=== PATIENT | female | born 1940 | race Caucasian/White ===

== ENCOUNTER → 2018-03-02 07:15 | Outpatient (CLI) | payer MEDICARE, BC, SELFPAY ==
[2018-03-02 10:31] LABS: Absolute Lymphocyte Count 1.18 X10^3/ul (0.83-4.51); Absolute Neutrophil Count 1.7 X10^3/uL (2.0-7.7); Basophil# 0.04 X10^3/uL; Basophil% 1.1 % (0-1); Eosinophil# 0.12 X10^3/uL; Eosinophils% 3.4 % (0-5); Hematocrit 39.3 % (37-47); Hemoglobin 13.6 g/dl (12.0-15.0); Lymphocyte # 1.18 X10^3/ul (4.0); Lymphocyte % 33.3 % (19-41); Mean Corp Hgb Conc 34.6 g/gl (32-36); Mean Corpuscular Hgb 31.6 pg (27.0-32.0); Mean Corpuscular Volume 91.2 fL (81-99); Mean Platelet Vol. 10.1 fl (6.2-12.0); Monocyte# 0.46 X10^3/uL; Neutrophil # 1.73 X10^3/uL (2.7-7.7); Neutrophil % 48.9 % (47-70); Platelet Count 247 K/mm3 (150-450); RBC Distribution Width CV 12.4 % (11.6-14.6); RBC Distribution Width SD 41.3 fl (35.1-43.9); Red Blood Count 4.31 M/mm3 (4.2-5.4); White Blood Count 3.5 K/mm3 (4.4-11.0)
[2018-03-02 10:54] LABS: POSITIVE COUNT NO; POSITIVE DIFFERENTIAL NO; POSITIVE MORPHOLOGY NO
[2018-03-02 11:00] LABS: Vitamin B12 1417 pg/mL (211-911)
[2018-03-02 11:44] LABS: ALB/GLOB Ratio 1.2 RATIO (0.9-2.4); AST(SGOT) 26 U/L (15-37); Alanine Aminotransfer ALT/SGPT 26 U/L (13-56); Albumin, Serum 3.8 g/dL (3.2-5.0); Alkaline Phosphatase 85 U/L (45-117); Anion Gap 6 (5-15); BUN 13 mg/dL (7-18); BUN/Creat Ratio 17.7 RATIO (10-20); Calcium,Total 8.6 mg/dL (8.5-10.1); Chloride 101 mmol/L (98-107); Creatinine, Serum 0.73 mg/dL (0.55-1.02); EST Glomerular Filtration Rate 81 mL/min (>60); Est Glom Filt Rate - Afr Amer 98 mL/min (>60); Globulin 3.2 g/dL (2.2-4.2); Glucose 75 mg/dL (74-106); Potassium 4.1 mmol/L (3.5-5.1); Sodium Level 136 mmol/L (136-145); Thyroid Stim Hormone (TSH) 2.14 uIU/mL (0.358-3.74)
[2018-03-06 12:53] LABS: ANTINUCLEAR ANTIBODIES DIRECT Negative (Negative)
== END ==
PROVIDERS: Family Provider Nurse Practitioner; PCP Nurse Practitioner; Visit Provider Nurse Practitioner
DX: E03.9 Hypothyroidism, unspecified (principal); D72.819 Decreased white blood cell count, unspecified
CPT/HCPCS: 36415; 80053; 82607; 82746; 84443; 85025; 86038

== ENCOUNTER → 2018-03-19 10:20 | Outpatient (CLI) | payer MEDICARE, BC, SELFPAY ==
--- NOTE | 2018-03-19 10:20 | DT_ITS ---
This patient was seen during an EMR downtime March 19, 2018 - March 26, 2018. This patient may have a combination of paper and electronic documentation or all paper documentation. All documentation is viewable within the e-chart portion of [facility] for each patient visit.
--- NOTE | 2018-03-19 10:25 | BI_ITS ---
MAMMOGRAPHY - BILATERAL SCREENING REASON FOR EXAM: Female, 77 years old. Routine annual screening examination. PERTINENT HISTORY: Non-contributory. TECHNIQUE: Digital bilateral breast som (3D mammographic acquisition) in the CC and MLO projections. 2-D mediolateral oblique (MLO) and craniocaudad (CC) views of both breasts were obtained. CAD: Full Field Digital Mammography with Computer Added Detection was performed. COMPARISON: 03/15/2017 and 02/01/2012 FINDINGS: Breast Composition: The breasts are heterogeneously dense, which may obscure small masses. There are no dominant masses or suspicious calcifications. No other significant abnormalities are identified. BI/SCREENING MAMM (CAD), BILAT IMPRESSION: Stable bilateral screening mammogram. Yearly follow-up mammogram recommended. (A) ASSESSMENT CATEGORY: BIRADS Category 2: Benign. A letter regarding these results will be sent to the patient by the facility within 30 days. Approximately 10% of breast cancers are not detected by mammography. A normal mammogram should not delay biopsy of a clinically suspicious abnormality. [id number] Electronically Signed: Aixa Weeks MD at 13:15 EDT Tel , Service support ,
== END ==
PROVIDERS: Family Provider Nurse Practitioner; PCP Nurse Practitioner; Visit Provider Nurse Practitioner
DX: Z12.31 Encounter for screening mammogram for malignant neoplasm of breast (principal)
CPT/HCPCS: 77063; 77067

== ENCOUNTER → 2018-07-17 07:17 | Outpatient (CLI) | payer MEDICARE, BC, SELFPAY ==
[2018-07-17 10:12] LABS: Absolute Lymphocyte Count 1.11 X10^3/ul (0.83-4.51); Absolute Neutrophil Count 1.3 X10^3/uL (2.0-7.7); Basophil# 0.05 X10^3/uL; Basophil% 1.5 % (0-1); Eosinophils% 6.2 % (0-5); Hematocrit 36.6 % (37-47); Hemoglobin 12.8 g/dl (12.0-15.0); Lymphocyte # 1.11 X10^3/ul (4.0); Lymphocyte % 34.3 % (19-41); Mean Corpuscular Hgb 32.2 pg (27.0-32.0); Monocyte# 0.55 X10^3/uL; Neutrophil # 1.32 X10^3/uL (2.7-7.7); Neutrophil % 40.7 % (47-70); Platelet Count 237 K/mm3 (150-450); RBC Distribution Width CV 12.3 % (11.6-14.6); RBC Distribution Width SD 40.5 fl (35.1-43.9); Red Blood Count 3.98 M/mm3 (4.2-5.4); White Blood Count 3.2 K/mm3 (4.4-11.0)
[2018-07-17 10:17] LABS: POSITIVE COUNT NO; POSITIVE DIFFERENTIAL NO; POSITIVE MORPHOLOGY NO
[2018-07-17 10:39] LABS: Microalbumin,Random Urine 12.4 mg/L (NO RANGE EST.); Microalbumin:Creatinine Ratio 26.2 mg/g CRE (<30 mg/g CRE)
== END ==
PROVIDERS: Family Provider Nurse Practitioner; PCP Nurse Practitioner; Referring Provider Nurse Practitioner; Visit Provider Nurse Practitioner
DX: E03.9 Hypothyroidism, unspecified (principal); I10 Essential (primary) hypertension; D72.819 Decreased white blood cell count, unspecified
CPT/HCPCS: 36415; 82043; 82570; 84443; 85025

== ENCOUNTER → 2018-07-24 10:20 | Outpatient (CLI) | payer MEDICARE, BC, SELFPAY ==
[2018-07-24 12:03] LABS: Hematocrit 34.9 % (37-47); Hemoglobin 12.3 g/dl (12.0-15.0); Mean Corp Hgb Conc 35.2 g/gl (32-36); Mean Corpuscular Hgb 32.7 pg (27.0-32.0); Mean Corpuscular Volume 92.8 fL (81-99); Mean Platelet Vol. 10.4 fl (6.2-12.0); Platelet Count 259 K/mm3 (150-450); RBC Distribution Width CV 12.3 % (11.6-14.6); RBC Distribution Width SD 40.8 fl (35.1-43.9); Red Blood Count 3.76 M/mm3 (4.2-5.4); White Blood Count 3.5 K/mm3 (4.4-11.0)
[2018-07-24 12:04] LABS: Scan Indicated on CBC? Y/N NO
[2018-07-24 12:21] LABS: AST(SGOT) 27 U/L (15-37); Alanine Aminotransfer ALT/SGPT 29 U/L (13-56); Albumin, Serum 3.5 g/dL (3.2-5.0); Alkaline Phosphatase 78 U/L (45-117); Bilirubin, Direct 0.23 mg/dL (0.00-0.30); Globulin 3.2 g/dL (2.2-4.2); Protein, Total 6.7 g/dL (6.4-8.2); Thyroid Stim Hormone (TSH) 2.22 uIU/mL (0.358-3.74)
== END ==
PROVIDERS: Family Provider Nurse Practitioner; PCP Nurse Practitioner; Referring Provider Nurse Practitioner; Visit Provider Nurse Practitioner
DX: E03.9 Hypothyroidism, unspecified (principal); D70.9 Neutropenia, unspecified; R35.1 Nocturia
CPT/HCPCS: 36415; 80076; 84443; 85027; 87086; 87088

== ENCOUNTER → 2018-09-27 07:09 | Outpatient (CLI) | payer MEDICARE, BC, SELFPAY ==
[2018-09-27 10:43] LABS: Absolute Lymphocyte Count 1.09 X10^3/ul (0.83-4.51); Absolute Neutrophil Count 1.5 X10^3/uL (2.0-7.7); Basophil# 0.07 X10^3/uL; Basophil% 2.1 % (0-1); Eosinophil# 0.25 X10^3/uL; Eosinophils% 7.5 % (0-5); Hemoglobin 13.5 g/dl (12.0-15.0); Lymphocyte # 1.09 X10^3/ul (4.0); Lymphocyte % 32.5 % (19-41); Mean Corp Hgb Conc 34.6 g/gl (32-36); Mean Corpuscular Hgb 32.2 pg (27.0-32.0); Mean Corpuscular Volume 93.1 fL (81-99); Mean Platelet Vol. 9.9 fl (6.2-12.0); Monocyte# 0.47 X10^3/uL; Neutrophil # 1.47 X10^3/uL (2.7-7.7); Neutrophil % 43.9 % (47-70); Platelet Count 254 K/mm3 (150-450); RBC Distribution Width CV 12.2 % (11.6-14.6); RBC Distribution Width SD 41.5 fl (35.1-43.9); Red Blood Count 4.19 M/mm3 (4.2-5.4); White Blood Count 3.4 K/mm3 (4.4-11.0)
[2018-09-27 10:49] LABS: ALB/GLOB Ratio 1.2 RATIO (0.9-2.4); AST(SGOT) 25 U/L (15-37); Alanine Aminotransfer ALT/SGPT 27 U/L (13-56); Albumin, Serum 3.8 g/dL (3.2-5.0); Alkaline Phosphatase 83 U/L (45-117); Anion Gap 6 (5-15); BUN 12 mg/dL (7-18); Chloride 103 mmol/L (98-107); Creatinine, Serum 0.67 mg/dL (0.55-1.02); EST Glomerular Filtration Rate 91 mL/min (>60); Est Glom Filt Rate - Afr Amer 110 mL/min (>60); Globulin 3.2 g/dL (2.2-4.2); Glucose 78 mg/dL (74-106); Sodium Level 138 mmol/L (136-145)
[2018-09-27 10:50] LABS: POSITIVE COUNT NO; POSITIVE DIFFERENTIAL NO; POSITIVE MORPHOLOGY NO
--- OUTSIDE RECORDS SUMMARY | 2018-11-13 00:34 | XMS RPT_ITS | Continuity of Care Document ---
:1940 Author Organization [facility] Address [facility] [address] [place] [address] Phone Care Team Providers Name Role Phone Fuadjae JEANNETTEKristie E Unavailable Dr. 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 Deliveries (Parity) Comments: 4 Status: Active Elevated blood pressure reading (R03.0, 796.2) Status: Active Encounter for screening mammogram for malignant neoplasm of breast (Z12.31, V76.12) Status: Active Fracture Of Ankle Status: Active Hyperlipidemia (E78.5, 272.4) Status: Active Hypertension (I10, 401.9) Comments: stage I, reviewed home BP charts, BP range 119/79 to 133/85 Status: Active Hypothyroidism (E03.9, 244.9) Comments: stay on current synthroid, was 67 now normal, repeat in February 2018 within range continue med and repeat again Jul 2018Not on synthroid for 5 years, result in February 2017 67! 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 David 2010 with neuts at 38.9 now 40.7 but now elevated eosinophils will repeat peripheral blood smear check b12, folic acid, normal Status: Active Nocturia (R35.1, 788.43) Status: Active Nonsmoker (Z78.9, V49.89) Status: Active Osteoporosis (M81.0, 733.00) Comments: BD 3- 6 % improvement continue same Status: Active Other lichen, not elsewhere classified (697.8) Comments: lichen sclerosisno change no new signs and symptoms Status: Active Pregnancies () Comments: 4 Status: Active Screening for malignant neoplasm of cervix (Z12.4, V76.2) Comments: refuse colonscopy told about colosure. new guidleines can stop pap now Status: Active Vitamin D insufficiency (E55.9, 268.9) Comments: continue 2000 daily Status: Active Medications Name Dates Details CALCIUM-CARB 600 + D, [id number] (Oral Tablet) 1 qd for 0 days Refills: 0 Ordered:24-Jul-2018 Cayetano, TaylorActive CENTRUM SILVER (Oral Tablet) 1 qd for 0 days Refills: 0 Ordered:29-Apr-2009 Analisa Bruner Desoximetasone 0.25 % External Cream 1 (one) Cream as needed for 0 days Quantity: 60 {Gram} Refills: 3 Ordered:24-Jul-2018 Kristie Meadows CNP, CNP, Kristie Tsang Start : 24-Jul-2018 Active Comments:Medication taken as needed. Excedrin as needed Active Comments:Medication taken as needed. Extra strengtj FISH OIL CONCENTRATE, 1000MG (Oral Capsule) 1 qd for 0 days Refills: 0 Ordered:29-Apr-2009 STEVEN BrunerActive Fosamax 70 MG Oral Tablet 1 (one) Tablet weekly for 90 days Quantity: 12 {Tablet} Refills: 3 Ordered:24-Jul-2018 Dori MACHADO, Kristie French CNP, Kristie Tsang Start : 24-Jul-2018 Active Fosamax 70 MG Oral Tablet 1 (one) Tablet q weekly for 0 days Quantity: 12 {Tablet} Refills: 3 Ordered:24-Jul-2018 Dori MACHADO, Kristie French CNP, Kristie Tsang Start : 24-Jul-2018 Active Iron 325 (65 Fe) MG Oral Tablet Tuantonio, Teresa, Sat (325 (65 Fe) MG) Active Lutein 10 MG Oral Tablet daily (10 MG) Active Norvasc 5 MG Oral Tablet 1 (one) Tablet daily for 0 days Quantity: 90 {Tablet} Refills: 3 Ordered:24-Jul-2018 Dori MACHADO, Kristie French CNP, Kristie Tsang Start : 24-Jul-2018 Active Super B complex daily Active Synthroid 75 MCG Oral Tablet 1 Tablet qd for 0 days Quantity: 90 {Tablet} Refills: 3 Ordered:24-Jul-2018 Dori MACHADO, Kristie French CNP, Kristie Tsang Start : 24-Jul-2018 Active Systane and or Alaway eye drops d daily Active Vitamin D3 2000 UNIT Oral Tablet 1 (one) Tablet Tablet daily for 0 days Quantity: 30 {Tablet} Refills: 0 Ordered:27-Mar-2017 Sandy Hopkins Start : 24-Feb-2017 Active Vitamin E 100 UNIT Oral Capsule daily (100 UNIT) Active ARMOUR THYROID, 60MG (Oral Tablet) uad Tablet 1 alternating with 2 qod for 0 days Quantity: 135 {Tablet} Refills: 3 Ordered:21-Oct-2009 STEVEN Bruner Start : 04-Mar-2009 Inactive CYTOMEL, 5MCG (Oral Tablet) 1 (one) Tablet qd for 0 days Quantity: 30 {Tablet} Refills: 2 Ordered:03-Feb-2011 STEVEN Bruner Start : 08-Dec-2009 End : 03-Feb-2011 Inactive DEBROX, 6.5% (Otic Solution) 1 for 0 days Refills: 0 Ordered:04-Mar-2009 STEVEN Bruner Start : 04-Mar-2009 End : 12-Mar-2009 Inactive EVISTA, 60MG (Oral Tablet) 1 (one) Tablet qod for 0 days Quantity: 45 {Tablet} Refills: 3 Ordered:03-Feb-2011 STEVEN Bruner Start : 30-Mar-2010 End : 03-Feb-2011 Inactive KEFLEX, 250MG (Oral Capsule) 1 (one) Capsule qid for 7 days Quantity: 28 {Capsule} Refills: 0 Ordered:17-Mar-2009 Dori JEANNETTE, Kristie French BARN AND PROPERTY MANAGER, Kristie Tsang Start : 17-Mar-2009 End : 30-Mar-2009 Inactive FISH OIL (Oil) End : 24-Mar-2008 Discontinued MULTIVITAMIN (Oral Liquid) Liquid for 0 days Refills: 0 Ordered:24-Mar-2008 STEVEN Bruner Start : 24-Mar-2008 End : 24-Mar-2008 Discontinued Prolia 60 MG/ML Subcutaneous Solution 1 (one) Solution q6mos for 0 days Quantity: 1 {Each} Refills: 1 Ordered:30-Aug-2017 Terrie Corbett Start : 27-Mar-2017 End : 30-Aug-2017 Discontinued Comments:forms sent to [facility] THYROID, 120MG (Oral Tablet) Not sure QD (120 MG) End : 24-Mar-2008 Discontinued Topicort 0.25 % External Ointment uad Ointment bid/prn to affected area(s) for 0 days Quantity: 1 {Ointment} Refills: 3 Ordered:24-Feb-2017 Salma Russell LPN Start : 26-Dec-2011 End : 24-Feb-2017 Discontinued Comments:dispense 60 grams Vitamin B Complex Oral Tablet 1 qd for 0 days Refills: 0 Ordered:24-Feb-2017 Salma Russell LPN End : 24-Feb-2017 Discontinued Vitamin B-12 1000 MCG Oral Tablet 1 3 x weekly for 0 days Refills: 0 Ordered:24-Feb-2017 Salma Russell LPN End : 24-Feb-2017 Discontinued Allergies and Adverse Reactions Name Dates Details Sulfa Drugs (Allergy) Status: Active Past Medical History Name Dates Details Actinic keratosis (L57.0, 702.0) Status: Inactive as of 06-Dec-2012 BMI between 19-24,adult (V85.1) Status: Inactive as of 30-Aug-2017 Cellulitis and abscess of other specified site (L03.818, 682.8) Status: Inactive as of 15-Apr-2009 Cerumen impaction (H61.20, 380.4) Comments: rt Status: Inactive as of 06-Dec-2012 Immunization Hx: h1n1 10-26-09 (Renamed from h1n1 10-26-09) Status: Inactive Immunization Hx: pneunmonia 08-08-08 (Renamed from pneunmonia 08-08-08) Status: Inactive Immunization Hx: seasonal flu 07-16-09 (Renamed from seasonal flu 07-16-09) Status: Inactive Osteopenia (M85.80, 733.90) Status: Resolved as of 29-Apr-2009 Rash (R21, 782.1) Comments: etiology?left elbow and rt knee Status: Inactive as of 15-Apr-2009 Procedures Date Value Details 05-Apr-2018 Downtime Report Result: Comments: See Note; NOTES: [facility] Medical Records Department [address] [place] [address] Downtime Report MR#: [id number] Acct: [id number] Name: CHINMAY COTA Rep #: [id number] : 1940 77 From: Jim Her PCP: Kristie Meadows NP Status: REG CLI This patient was seen during an EMR downtime March 19, 2018 - March 26, 2018. This patient may have a combination of jory r and electronic documentation or all paper documentation. All documentation is viewable within the e-chart portion of [facility] for each patient visit. 23-Mar-2018 SCREENING MAMM (CAD), BILAT Result: Comments: See Note; NOTES: [facility] Imaging Services [address] [place] [address] SCREENING MAMM (CAD), BILAT MR#: [id number] Acct: [id number] Name: CHINMAY COTA Jae Rep #: [id number] : 1940 F 77 From: Aixa Weeks MD PCP: Kristie Meadows NP Status: REG CLI Study: SCREENING MAMM (CAD), BILAT Date of Exam: 03/19/18 Exam# [id number] Ordering Dr: Kristie Meadows MAMMOGRAPHY - BILATERAL SCREENING REASON FOR EXAM: Female, 77 years old. Routine annual screening examination. PERTINENT HISTORY: Non-contributory. TECHNIQUE: Digital bilateral breast som (3D mammographic acqui sition) in the CC and MLO projections. 2-D mediolateral oblique (MLO) and craniocaudad (CC) views of both breasts were obtained. CAD: Full Field Digital Mammography with Computer Added Detection was per formed. COMPARISON: 03/15/2017 and 02/01/2012 FINDINGS: Breast Composition: The breasts are heterogeneously dense, which may obscure small masses. There are no domin ant masses or suspicious calcifications. No other significant abnormalities are identified. BI/SCREENING MAMM (CAD), BILAT IMPRESSION: Stable bi lateral screening mammogram. Yearly follow-up mammogram recommended. (A) ASSESSMENT CATEGORY: BIRADS Category 2: Benign. A letter regarding these results will be se nt to the patient by the facility within 30 days. Approximately 10% of breast cancers are not detected by mammography. A normal mammogram should not delay biopsy of a clinically suspicious abnormality. [id number] Electronically Signed: Aixa Weeks MD at 13:15 EDT Tel , Service support , CC: Kristie Meadows NP Spring Coverer: Signed 15-Mar-2017 Dexa Bone Density Study (HP) Result: Comments: See Note; NOTES: [facility] Imaging Services [address] [place] [id number] [address] 4[address] Dexa Bone Density Study (HP) MR#: [id number] Acct: [id number] Name: CHINMAY COTA Rep #: [id number] : 1940 F 76 From: Per Frye MD PCP: Kritsie Meadows Status: REG CLI Study: Dexa Bone Density Study (HP) Date of Exam: 03/15/17 Exam# [id number] Ordering Dr: Kristie Meadows STUDY: DUAL ENERGY X-RAY ABSORPTIOMETRY / DXA REASON FOR EXAM: Female, 76 years old. The patient is postmenopausal. Loss of height. TECHNIQUE: Bone Mineral Density (BMD) measurements of lumbar spin e and bilateral hips were obtained. COMPARISON: Comparison is made with prior study dated January 13, 2011. FINDINGS: Lumbar Spine (L1-L4): g/cm2 (0.753) / T-score ( -3.4) / Z-score (-1.6) Findings are suggestive of osteoporosis with a high fracture risk. Left Femur Total: g/cm2 (0.583) / T-score (-3.4) / Z-score (-1.4) Left Femoral Neck: g/cm2 (0.634) / T-score (- 2.9) / Z-score (-0.8) Right Femur Total: g/cm2 (0.557) / T-score (-3.6) / Z-score (-1.6) Right Femoral Neck: g/cm2 (0.578) / T-score (-3.3) / Z-score (-1.2) The T-Scores on the most recent prior examin ation were: Lumbar Spine (L1-L4): There has been worsening of bone density since the previous examination. Left Femur Total: which represents a worsening of 16.1%. Right Femur Total: which represents a worsening of 15.5%. HPBD/Dexa Bone Density Study (HP) IMPRESSION: The patient is considered osteoporotic as outlined below according to World H eath Organization (WHO) criteria with a high fracture risk. There has been worsening of bone density since the previous examination. Reference Information: The T-sc ore is the number of standard deviations above or below the standard which is normal for young adults at their peak bone mineral density. The World Health Organization (WHO) interprets the T-scores as f ollows: Above -1 Normal bone density Between -1 and -2.5 Osteopenia Equal to / or below -2.5 Osteoporosis As a practical clinical guideline, osteopenia may be graded as follows: Mild -1 through -1.5 M oderate -1.6 through -2.0 Severe -2.1 through -2.4 The Z-score is the number of standard deviations above or below age-matched controls. A Z-score of less than -1.5 would be considered abnormal. Refer ences: 1. NIH Osteoporosis and Related Bone Diseases http://www.osteo.org 2. International Society for Clinical Densitometry http://www.iscd.org 3. National Osteoporosis Foundation http://www.nof.org E lectronically Signed: Per Frye MD at 11:21 EDT Tel [phone], Service support , CC: Kristie Meadows Spring Coverer: Signed 15-Mar-2017 SCREENING MAMM (CAD), BILAT Result: Comments: See Note; NOTES: [facility] Imaging Services [address] [place] [address] [address] SCREENING MAMM (CAD), BILAT MR#: [id number] Acct: [id number] Name: CHINMAY COTA Rep #: [id number] : 1940 F 76 From: Per Frye MD PCP: Kristie Meadows Status: REG CLI Study: SCREENING MAMM (CAD), BILAT Date of Exam: 03/15/17 Exam# [id number] Ordering Dr: Kristie Meadows MAMMOGRAPHY - BILATERAL SCREENING REASON FOR EXAM: Female, 76 years old. Routine annual screening examination. PERTINENT HISTORY: Non-contributory. TECHNIQUE: Digital bilateral breast som (3D mammo graphic acquisition) in the CC and MLO projections. 2-D mediolateral oblique (MLO) and craniocaudad (CC) views of both breasts were obtained. CAD: Full Field Digital Mammography with Computer Added Dete ction was performed. COMPARISON: Comparison is made with prior study dated February 01, 2012. FINDINGS: Breast Composition: The breasts are heterogeneously dense, whic h may obscure small masses. There are no dominant masses or suspicious calcifications. Stable bilateral secretory calcifications. No other significant abnormalities are identified. There has been no s ignificant change since the prior study. HPBI/SCREENING MAMM (CAD), BILAT IMPRESSION: Stable bilateral screening mammogram. Yearly follow-up mamm ogram recommended. (A) ASSESSMENT CATEGORY: BIRADS Category 2: Benign. A letter regarding these results will be sent to the patient by the facility within 30 days. Approximately 10% of breast cancers are not detected by mammography. A normal mammogram should not delay biopsy of a clinically suspicious abnormality. 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 Comments: 02/03/12 Status: Active Smoking Status Name Dates Details Never smoker Vital Signs Date Test Result Details 24-Jul-20188:57 Temperature 98 f Comments: Method: Temporal Pulse 105 /min Comments: Pattern: Regular Respiration Rate 17 /min Comments: Pattern: Unlabored O2 SAT 95 % Comments: Room air BP Systolic 132 mm[Hg] Comments: Patient Position: Sitting; Cuff Location: Left Arm; Cuff Size: Standard BP Diastolic 80 mm[Hg] Comments: Patient Position: Sitting; Cuff Location: Left Arm; Cuff Size: Standard Weight 118.5 lb Height 64.25 in Body Mass Index Calculated 20.18 kg/m2 Body Surface Area Calculated 1.57 m2 :25 Temperature 97.3 f Comments: Method: Tympanic Pulse 103 /min Comments: Pattern: Regular Respiration Rate 17 /min Comments: Pattern: Unlabored O2 SAT 99 % Comments: Room air BP Systolic 162 mm[Hg] Comments: Patient Position: Sitting; Cuff Location: Left Arm; Cuff Size: Standard BP Diastolic 86 mm[Hg] Comments: Patient Position: Sitting; Cuff Location: Left Arm; Cuff Size: Standard Weight 120.05 lb Height 64.25 in Body Mass Index Calculated 20.45 kg/m2 Body Surface Area Calculated 1.58 m2 :27 Temperature 97.2 f Pulse 52 /min Comments: Pattern: Regular Respiration Rate 16 /min Comments: Pattern: Unlabored O2 SAT 96 % Comments: Room air BP Systolic 180 mm[Hg] Comments: Patient Position: Sitting; Cuff Location: Left Arm; Cuff Size: Standard BP Diastolic 92 mm[Hg] Comments: Patient Position: Sitting; Cuff Location: Left Arm; Cuff Size: Standard Weight 122.25 lb Height 64.25 in Body Mass Index Calculated 20.82 kg/m2 Body Surface Area Calculated 1.59 m2 :33 Temperature 98.1 f Pulse 105 /min Comments: Pattern: Regular Respiration Rate 18 /min Comments: Pattern: Unlabored O2 SAT 97 % Comments: Room air BP Systolic 162 mm[Hg] Comments: Patient Position: Sitting; Cuff Location: Left Arm; Cuff Size: Standard BP Diastolic 80 mm[Hg] Comments: Patient Position: Sitting; Cuff Location: Left Arm; Cuff Size: Standard Weight 122.25 lb Height 64.25 in Body Mass Index Calculated 20.82 kg/m2 Body Surface Area Calculated 1.59 m2 :14 Weight 122.25 lb Height 64.25 in Body Mass Index Calculated 20.82 kg/m2 Body Surface Area Calculated 1.59 m2 :04 Pulse 111 /min Comments: Pattern: Regular Respiration Rate 16 /min Comments: Pattern: Unlabored O2 SAT 98 % Comments: Room air BP Systolic 150 mm[Hg] Comments: Patient Position: Sitting; Cuff Location: Left Arm; Cuff Size: Standard BP Diastolic 70 mm[Hg] Comments: Patient Position: Sitting; Cuff Location: Left Arm; Cuff Size: Standard Weight 122.25 lb Height 64.25 in Body Mass Index Calculated 20.82 kg/m2 Body Surface Area Calculated 1.59 m2 :28 Temperature 98.1 f Pulse 89 /min Comments: Pattern: Regular Respiration Rate 17 /min Comments: Pattern: Unlabored O2 SAT 95 % Comments: Room air BP Systolic 152 mm[Hg] Comments: Patient Position: Sitting; Cuff Location: Left Arm; Cuff Size: Standard BP Diastolic 90 mm[Hg] Comments: Patient Position: Sitting; Cuff Location: Left Arm; Cuff Size: Standard Weight 122.25 lb Height 64.25 in Body Mass Index Calculated 20.82 kg/m2 Body Surface Area Calculated 1.59 m2 :26 Temperature 97.8 f Comments: Method: Oral Pulse 100 /min Comments: Pattern: Regular Respiration Rate 16 /min Comments: Pattern: Unlabored BP Systolic 130 mm[Hg] Comments: Patient Position: Sitting; Cuff Location: Left Arm; Cuff Size: Standard BP Diastolic 90 mm[Hg] Comments: Patient Position: Sitting; Cuff Location: Left Arm; Cuff Size: Standard Weight 117 lb Height 64.25 in Body Mass Index Calculated 19.93 kg/m2 Body Surface Area Calculated 1.56 m2 :07 Temperature 97 f Comments: Method: Oral Pulse 74 /min Comments: Pattern: Regular Respiration Rate 15 /min Comments: Pattern: Unlabored BP Systolic 122 mm[Hg] Comments: Patient Position: Sitting; Cuff Location: Left Arm; Cuff Size: Standard BP Diastolic 72 mm[Hg] Comments: Patient Position: Sitting; Cuff Location: Left Arm; Cuff Size: Standard Weight 121 lb Height 64.25 in Body Mass Index Calculated 20.61 kg/m2 Body Surface Area Calculated 1.58 m2 :12 Temperature 98.4 f Comments: Method: Oral Pulse 76 /min Comments: Pattern: Regular Respiration Rate 18 /min Comments: Pattern: Unlabored BP Systolic 120 mm[Hg] Comments: Patient Position: Sitting; Cuff Location: Left Arm; Cuff Size: Standard BP Diastolic 80 mm[Hg] Comments: Patient Position: Sitting; Cuff Location: Left Arm; Cuff Size: Standard Weight 121 lb Height 64.25 in Body Mass Index Calculated 20.61 kg/m2 Body Surface Area Calculated 1.58 m2 :21 Pulse 76 /min Comments: Pattern: Regular Respiration Rate 16 /min Comments: Pattern: Unlabored BP Systolic 122 mm[Hg] Comments: Patient Position: Sitting; Cuff Location: Right Arm; Cuff Size: Standard BP Diastolic 74 mm[Hg] Comments: Patient Position: Sitting; Cuff Location: Right Arm; Cuff Size: Standard :20 Pulse 74 /min Comments: Pattern: Regular Respiration Rate 16 /min Comments: Pattern: Unlabored BP Systolic 118 mm[Hg] Comments: Patient Position: Sitting; Cuff Location: Left Arm; Cuff Size: Standard BP Diastolic 78 mm[Hg] Comments: Patient Position: Sitting; Cuff Location: Left Arm; Cuff Size: Standard Weight 0 lb Height 0 in Head Circumference 0.00 cm :22 Temperature 97.6 f Comments: Method: Oral Pulse 82 /min Comments: Pattern: Regular Respiration Rate 18 /min Comments: Pattern: Unlabored BP Systolic 116 mm[Hg] Comments: Patient Position: Sitting; Cuff Location: Left Arm; Cuff Size: Standard BP Diastolic 78 mm[Hg] Comments: Patient Position: Sitting; Cuff Location: Left Arm; Cuff Size: Standard Weight 123.1875 lb Height 0 in Head Circumference 0.00 cm :23 Pulse 84 /min Comments: Pattern: Regular Respiration Rate 16 /min Comments: Pattern: Unlabored BP Systolic 118 mm[Hg] Comments: Patient Position: Sitting; Cuff Location: Left Arm; Cuff Size: Standard BP Diastolic 78 mm[Hg] Comments: Patient Position: Sitting; Cuff Location: Left Arm; Cuff Size: Standard Weight 123 lb Height 64.25 in Body Mass Index Calculated 20.95 kg/m2 Body Surface Area Calculated 1.6 m2 Head Circumference 0.00 cm :14 Temperature 98.1 f Comments: Method: Oral Pulse 88 /min Comments: Pattern: Regular Respiration Rate 18 /min Comments: Pattern: Unlabored BP Systolic 122 mm[Hg] Comments: Patient Position: Sitting; Cuff Location: Left Arm; Cuff Size: Standard BP Diastolic 70 mm[Hg] Comments: Patient Position: Sitting; Cuff Location: Left Arm; Cuff Size: Standard Weight 124.5625 lb Height 0 in Head Circumference 0.00 cm :58 Pulse 80 /min Comments: Pattern: Regular Respiration Rate 20 /min Comments: Pattern: Unlabored BP Systolic 132 mm[Hg] Comments: Patient Position: Sitting; Cuff Location: Left Arm; Cuff Size: Large BP Diastolic 80 mm[Hg] Comments: Patient Position: Sitting; Cuff Location: Left Arm; Cuff Size: Large Weight 126.5625 lb Height 0 in Head Circumference 0.00 cm :10 Temperature 98.3 f Comments: Method: Oral Pulse 94 /min Comments: Pattern: Regular Respiration Rate 16 /min Comments: Pattern: Unlabored BP Systolic 122 mm[Hg] Comments: Patient Position: Sitting; Cuff Location: Left Arm; Cuff Size: Standard BP Diastolic 70 mm[Hg] Comments: Patient Position: Sitting; Cuff Location: Left Arm; Cuff Size: Standard Weight 126.5625 lb Height 0 in Head Circumference 0.00 cm :01 Pulse 88 /min Comments: Pattern: Regular Respiration Rate 20 /min Comments: Pattern: Unlabored BP Systolic 122 mm[Hg] Comments: Patient Position: Sitting; Cuff Location: Left Arm; Cuff Size: Large BP Diastolic 68 mm[Hg] Comments: Patient Position: Sitting; Cuff Location: Left Arm; Cuff Size: Large Weight 127 lb Height 0 in Head Circumference 0.00 cm :07 Temperature 98.2 f Comments: Method: Oral Pulse 74 /min Comments: Pattern: Regular Respiration Rate 18 /min Comments: Pattern: Unlabored BP Systolic 120 mm[Hg] Comments: Patient Position: Sitting; Cuff Location: Left Arm; Cuff Size: Standard BP Diastolic 80 mm[Hg] Comments: Patient Position: Sitting; Cuff Location: Left Arm; Cuff Size: Standard Weight 127 lb Height 0 in Head Circumference 0.00 cm :11 Temperature 97.7 f Comments: Method: Oral Pulse 76 /min Comments: Pattern: Irregular Respiration Rate 20 /min Comments: Pattern: Unlabored BP Systolic 104 mm[Hg] Comments: Patient Position: Sitting; Cuff Location: Left Arm; Cuff Size: Standard BP Diastolic 78 mm[Hg] Comments: Patient Position: Sitting; Cuff Location: Left Arm; Cuff Size: Standard Weight 128 lb Height 0 in Head Circumference 0.00 cm :40 Temperature 98.8 f Comments: Method: Oral Pulse 84 /min Comments: Pattern: Regular Respiration Rate 16 /min Comments: Pattern: Unlabored BP Systolic 112 mm[Hg] Comments: Patient Position: Sitting; Cuff Location: Right Arm; Cuff Size: Standard BP Diastolic 80 mm[Hg] Comments: Patient Position: Sitting; Cuff Location: Right Arm; Cuff Size: Standard Weight 0 lb Height 0 in Head Circumference 0.00 cm Results Date Description Value Details [id number] CBC-Complete Blood Cnt No Diff Comments: [facility] [id number] [place], [address] MPV 10.4 fL (Normal) Range: 6.2-12.0 PLT 259 K/mm3 (Normal) Range: 150-450 RDW SD 40.8 fL (Normal) Range: 35.1-43.9 RDW CV 12.3 % (Normal) Range: 11.6-14.6 MCHC 35.2 {g/gl} (Normal) Range: 32-36 MCH 32.7 pg (Abnormal) Range: 27.0-32.0 MCV 92.8 fL (Normal) Range: 81-99 HCT 34.9 % (Abnormal) Range: 37-47 HGB 12.3 g/dL (Normal) Range: 12.0-15.0 RBC 3.76 {M/mm3} (Abnormal) Range: 4.2-5.4 WBC 3.5 K/mm3 (Abnormal) Range: 4.4-11.0 [id number]:24 Culture, Urine Comments: [facility] [id number] [place], [address] CUUR See Note (Normal) Comments: Urine CultureORGANISM 1: Mixed Gram Positive OrganismsColony Count 1000-10,000MIX CULTURE Mixed contaminants. Submit a new specimen if indicated. 0-Eto-[id number]:24 Liver Profile Comments: [facility] [address] [place], [address] D BILI 0.23 mg/dL (Normal) Range: 0.00-0.30 T BILI 0.90 mg/dL (Normal) Range: 0.20-1.00 ALT 29 U/L (Normal) Range: 13-56 ALK P 78 U/L (Normal) Range: 45-117 AST 27 U/L (Normal) Range: 15-37 GLOB 3.2 g/dL (Normal) Range: 2.2-4.2 ALB 3.5 g/dL (Normal) Range: 3.2-5.0 T PROT 6.7 g/dL (Normal) Range: 6.4-8.2 9-Ynj-275174:24 Thyroid Stim Hormone (TSH) Comments: [facility] [address] [facility] [place], [address] TSH 2.22 {uIU/mL} (Normal) Range: 0.358-3.74 5-Bhe-404578:46 URINE ERIKA CULTURE-IDENTIFICATN Comments: PATIENT NOT FASTINGPERFORMED BY: [facility] [id number] [facility] [id number] Information: SRC:UC ([id number]) Result 1 MUG (Normal) Comments: Mixed urogenital flora1,000 Colonies/mL Urine Culture,Comprehensive Final report (Normal) 24-Jul-20189:37 Urinalysis, Office ([id number]) UA - LEUKOCYTE ESTERASE Negative (Normal) UA - NITRITE Negative (Normal) URINE UROBILINGN DONNA TIMED Normal mg/dL (Normal) UA - PROTEIN Negative mg/dL (Normal) UA - PH 6.5 (Normal) UA - BLOOD Negative (Normal) UA - SPECIFIC GRAVITY 1.010 (Normal) UA - KETONES Negative mg/dL (Normal) UA - BILIRUBIN Negative (Normal) UA - GLUCOSE Negative (Normal) 17-Jul-20187:22 CBC W/Diff, Automated Comments: [facility] [address] [facility] [place], [address] Absolute Lymph 1.11 {X10_3/ul} (Normal) Range: 0.83-4.51 Absolute Neut 1.3 {X10_3/uL} (Abnormal) Range: 2.0-7.7 IM GRAN % 0.300 % (Normal) Range: 0.0-0.9 Comments: IG% - Immature Granulocytes (promyelocytes, myelocytes andmetamyelocytes) > 1% indicates that a LEFT SHIFT is Present. BASO% 1.5 % (Abnormal) Range: 0-1 EO% 6.2 % (Abnormal) Range: 0-5 MONO% 17.0 % (Abnormal) Range: 0-10 LY% 34.3 % (Normal) Range: 19-41 NEUT% 40.7 % (Abnormal) Range: 47-70 MPV 10.0 fL (Normal) Range: 6.2-12.0 PLT 237 K/mm3 (Normal) Range: 150-450 RDW SD 40.5 fL (Normal) Range: 35.1-43.9 RDW CV 12.3 % (Normal) Range: 11.6-14.6 MCHC 35.0 {g/gl} (Normal) Range: 32-36 MCH 32.2 pg (Abnormal) Range: 27.0-32.0 MCV 92.0 fL (Normal) Range: 81-99 HCT 36.6 % (Abnormal) Range: 37-47 HGB 12.8 g/dL (Normal) Range: 12.0-15.0 RBC 3.98 {M/mm3} (Abnormal) Range: 4.2-5.4 WBC 3.2 K/mm3 (Abnormal) Range: 4.4-11.0 :22 Microalb:Creat Ratio,Random UR Comments: [facility] [address] [place] [address], [address] MALB:CREAT 26.2 {mg/g_CRE} (Normal) MICROALBUMIN,UR 12.4 mg/L (Normal) UR CREAT 47.40 mg/dL (Normal) :22 Thyroid Stim Hormone (TSH) Comments: [facility] [address] [facility] [place], [address] TSH 3.50 {uIU/mL} (Normal) Range: 0.358-3.74 :24 Urinalysis, Office ([id number]) Comments: today UA - LEUKOCYTE ESTERASE Negative (Normal) UA - NITRITE Negative (Normal) URINE UROBILINGN DONNA TIMED Normal mg/dL (Normal) UA - PROTEIN Negative mg/dL (Normal) UA - PH 6 (Abnormal) UA - BLOOD Negative (Normal) UA - SPECIFIC GRAVITY 1.010 (Normal) UA - KETONES Negative mg/dL (Normal) UA - BILIRUBIN Negative (Normal) UA - GLUCOSE Negative (Normal) 20-Apr-20189:53 MICROALBUMIN: CREATININE RATIO Comments: for 04-20-18, today; PATIENT NOT FASTINGPERFORMED BY: [facility] [place] [id number] [facility] [id number] ([id number]) AND ([id number]) Alb/Creat Ratio 14.2 {mg/g_creat} (Normal) Range: 0.0-30.0 Albumin, Urine 6.2 ug/mL (Normal) Creatinine, Urine 43.6 mg/dL (Normal) 19-Ylm-91031:26 ANTINUCLEAR ANTIBODIES DIRECT Comments: [facility] (refer to report for specific site)refer to report for address and phone number HOLA-DIRECT Negative (Normal) Comments: Performed at: [facility] [address] [id number] Director: Lul Hassan PhD, Phone: [phone] 26-Qct-37480:26 CBC W/Diff, Automated Comments: [facility] [address] [place], [place], [id number] Absolute Lymph 1.18 {X10_3/ul} (Normal) Range: 0.83-4.51 Absolute Neut 1.7 {X10_3/uL} (Abnormal) Range: 2.0-7.7 IM GRAN % 0.300 % (Normal) Range: 0.0-0.9 Comments: IG% - Immature Granulocytes (promyelocytes, myelocytes andmetamyelocytes) > 1% indicates that a LEFT SHIFT is Present. BASO% 1.1 % (Abnormal) Range: 0-1 EO% 3.4 % (Normal) Range: 0-5 MONO% 13.0 % (Abnormal) Range: 0-10 LY% 33.3 % (Normal) Range: 19-41 NEUT% 48.9 % (Normal) Range: 47-70 MPV 10.1 fL (Normal) Range: 6.2-12.0 PLT 247 K/mm3 (Normal) Range: 150-450 RDW SD 41.3 fL (Normal) Range: 35.1-43.9 RDW CV 12.4 % (Normal) Range: 11.6-14.6 MCHC 34.6 {g/gl} (Normal) Range: 32-36 MCH 31.6 pg (Normal) Range: 27.0-32.0 MCV 91.2 fL (Normal) Range: 81-99 HCT 39.3 % (Normal) Range: 37-47 HGB 13.6 g/dL (Normal) Range: 12.0-15.0 RBC 4.31 {M/mm3} (Normal) Range: 4.2-5.4 WBC 3.5 K/mm3 (Abnormal) Range: 4.4-11.0 61-Tqn-93188:26 Comprehensive Metabolic Profil Comments: Is Patient Taking Vitamins or Folic Acid Supplements? [facility] [address] [place], [place], [id number] GAP 6 (Normal) Range: 5-15 CO2 29.0 mmol/L (Normal) Range: 21.0-32.0 CL 101 mmol/L (Normal) Range: 98-107 K 4.1 mmol/L (Normal) Range: 3.5-5.1 NA 136 mmol/L (Normal) Range: 136-145 T BILI 1.00 mg/dL (Normal) Range: 0.20-1.00 ALT 26 U/L (Normal) Range: 13-56 ALK P 85 U/L (Normal) Range: 45-117 AST 26 U/L (Normal) Range: 15-37 CA 8.6 mg/dL (Normal) Range: 8.5-10.1 A/G 1.2 {RATIO} (Normal) Range: 0.9-2.4 GLOB 3.2 g/dL (Normal) Range: 2.2-4.2 ALB 3.8 g/dL (Normal) Range: 3.2-5.0 T PROT 7.0 g/dL (Normal) Range: 6.4-8.2 BUN/CRE 17.7 {RATIO} (Normal) Range: 10-20 EST GFR - AA 98 mL/min (Normal) Comments: GFR Calc EST GFR 81 mL/min (Normal) Comments: Non- GFR Calc CREAT,SERUM 0.73 mg/dL (Normal) Range: 0.55-1.02 Comments: The validity of the calculated GFR AND GFRAA in patients over70 years has not been determined. Clinical correlation isessential. BUN 13 mg/dL (Normal) Range: 7-18 GLU 75 mg/dL (Normal) Range: 74-106 Comments: Please note revised GLUCOSE reference range gmnggopuk16/02/2018. :26 Folates, (Folic Acid) Comments: Is Patient Taking Vitamins or Folic Acid Supplements? [facility] [address] [place], [id number] FOLATES 42.90 ng/mL (Normal) Range: 3.1-55.4 :26 Thyroid Stim Hormone (TSH) Comments: Is Patient Taking Vitamins or Folic Acid Supplements? [facility] [address] [place], [phone] TSH 2.14 {uIU/mL} (Normal) Range: 0.358-3.74 :26 Vitamin B12 1417 pg/mL (Abnormal) Comments: [facility] [address] [place], [id number] Range: 211-911 24-Aug-20177:17 CBC W/Diff, Automated Comments: [facility] [address] [place], [id number] Absolute Lymph 1.09 {X10_3/ul} (Normal) Range: 0.83-4.51 Absolute Neut 1.7 {X10_3/uL} (Abnormal) Range: 2.0-7.7 IM GRAN % 0.300 % (Normal) Range: 0.0-0.9 Comments: IG% - Immature Granulocytes (promyelocytes, myelocytes andmetamyelocytes) > 1% indicates that a LEFT SHIFT is Present. BASO% 1.7 % (Abnormal) Range: 0-1 EO% 3.4 % (Normal) Range: 0-5 MONO% 16.8 % (Abnormal) Range: 0-10 LY% 30.5 % (Normal) Range: 19-41 NEUT% 47.3 % (Normal) Range: 47-70 MPV 10.2 fL (Normal) Range: 6.2-12.0 PLT 274 K/mm3 (Normal) Range: 150-450 RDW SD 39.7 fL (Normal) Range: 35.1-43.9 RDW CV 12.2 % (Normal) Range: 11.6-14.6 MCHC 35.6 {g/gl} (Normal) Range: 32-36 MCH 32.1 pg (Abnormal) Range: 27.0-32.0 MCV 90.3 fL (Normal) Range: 81-99 HCT 40.2 % (Normal) Range: 37-47 HGB 14.3 g/dL (Normal) Range: 12.0-15.0 RBC 4.45 {M/mm3} (Normal) Range: 4.2-5.4 WBC 3.6 K/mm3 (Abnormal) Range: 4.4-11.0 :17 Thyroid Stim Hormone (TSH) Comments: [facility] [address] [place], [id number] TSH 2.61 {uIU/mL} (Normal) Range: 0.358-3.74 :17 Vitamin D,25 Hydroxy Comments: [address] [place], [address] Vitamin D 25-OH 63.1 ng/mL (Normal) Comments: Vitamin D 25(OH) Status Range Deficiency <20 ng/mL (50nmol/L) Insuffciency 20 - 30 ng/mL (50 - 75 nmol/L) Sufficiency 30 - 100 ng/mL (75 - 250 nmol/L) Toxicity >100 ng/mL (>250 nmol/L); ADDENDA: OV 08/30:00 Thyroid Stim Hormone (TSH) Comments: [facility] [address] [place], [id number] TSH 3.91 {uIU/mL} (Abnormal) Range: 0.358-3.74 :27 CBC W/Diff, Automated Comments: [address] [place], [address] Absolute Lymph 0.92 {X10_3/ul} (Normal) Range: 0.83-4.51 Absolute Neut 1.3 {X10_3/uL} (Abnormal) Range: 2.0-7.7 IM GRAN % 0.000 % (Normal) Range: 0.0-0.9 Comments: IG% - Immature Granulocytes (promyelocytes, myelocytes andmetamyelocytes) > 1% indicates that a LEFT SHIFT is Present. BASO% 2.8 % (Abnormal) Range: 0-1 EO% 4.9 % (Normal) Range: 0-5 MONO% 12.7 % (Abnormal) Range: 0-10 LY% 32.5 % (Normal) Range: 19-41 NEUT% 47.1 % (Normal) Range: 47-70 MPV 9.5 fL (Normal) Range: 6.2-12.0 PLT 231 K/mm3 (Normal) Range: 150-450 RDW SD 42.6 fL (Normal) Range: 35.1-43.9 RDW CV 12.4 % (Normal) Range: 11.6-14.6 MCHC 34.8 {g/gl} (Normal) Range: 32-36 MCH 33.0 pg (Abnormal) Range: 27.0-32.0 MCV 94.9 fL (Normal) Range: 81-99 HCT 38.8 % (Normal) Range: 37-47 HGB 13.5 g/dL (Normal) Range: 12.0-15.0 RBC 4.09 {M/mm3} (Abnormal) Range: 4.2-5.4 WBC 2.8 K/mm3 (Abnormal) Range: 4.4-11.0 16-Feb-20177:27 Comprehensive Metabolic Profil Comments: [facility] [address] [place], [place], [id number] GAP 9 (Normal) Range: 5-15 CO2 28.0 mmol/L (Normal) Range: 21.0-32.0 CL 95 mmol/L (Abnormal) Range: 98-107 K 4.2 mmol/L (Normal) Range: 3.5-5.1 NA 132 mmol/L (Abnormal) Range: 136-145 T BILI 1.10 mg/dL (Abnormal) Range: 0.20-1.00 ALT 38 U/L (Normal) Range: 12-78 ALK P 87 U/L (Normal) Range: 45-117 AST 43 U/L (Abnormal) Range: 15-37 CA 8.7 mg/dL (Normal) Range: 8.5-10.1 A/G 1.1 {RATIO} (Normal) Range: 0.9-2.4 GLOB 3.5 g/dL (Normal) Range: 2.3-3.5 ALB 4.0 g/dL (Normal) Range: 3.4-5.0 T PROT 7.5 g/dL (Normal) Range: 6.4-8.2 BUN/CRE 11.3 {RATIO} (Normal) Range: 10-20 EST GFR - AA 79 mL/min (Normal) Comments: GFR Calc EST GFR 66 mL/min (Normal) Comments: Non- GFR Calc CREAT,SERUM 0.88 mg/dL (Normal) Range: 0.55-1.02 Comments: The validity of the calculated GFR AND GFRAA in patients over70 years has not been determined. Clinical correlation isessential. BUN 10 mg/dL (Normal) Range: 7-18 GLU 79 mg/dL (Normal) Range: 70-110 :27 Lipid Profile Comments: [facility] [address] [facility] [address] [place], [place], [id number] VLDL 6 mg/dL (Normal) Range: 5-40 LDL 100 mg/dL (Normal) Range: 0-130 HDL 121 mg/dL (Normal) Comments: The drugs N-Acetylcysteine and Metamizole may falsely deressthis assay. Reference Range HDL <40 mg/dL Low HDL Cholesterol HDL >or= 60 mg/dL High HDL Cholesterol TRIG 29 mg/dL (Normal) Comments: The drugs N-Acetylcysteine and Metamizole may falsely deressthis assay.Serum Triglycerides Reference Interval Normal <150 mg/dL Borderline high 150 - 199 mg/dL High 200 - 499 mg/dL Very High > or = 500 mg/dL CHOL 227 mg/dL (Abnormal) Comments: <200 mg/dL Desirable 200-240 mg/dL Borderline >240 mg/dL High Risk :27 Thyroid Stim Hormone (TSH) Comments: [facility] [address] [place], [place], [id number] TSH 67.60 {uIU/mL} (Abnormal) Range: 0.358-3.74 :27 Vitamin D,25 Hydroxy Comments: [facility] [address] [place], [address] Vitamin D 25-OH 31.3 ng/mL (Normal) Comments: Vitamin D 25(OH) Status Range Deficiency <20 ng/mL (50nmol/L) Insuffciency 20 - 30 ng/mL (50 - 75 nmol/L) Sufficiency 30 - 100 ng/mL (75 - 250 nmol/L) Toxicity >100 ng/mL (>250 nmol/L); ADDENDA: OV 02/24/17:29 TSH 0.78 {uIU/mL} (Normal) Range: 0.358-3.74 :35 TSH 0.24 {uIU/mL} (Abnormal) Range: 0.358-3.74 49-Syl-786879:24 BILAT SCRN DIGITAL & CAD Comments: f/u 02/03/12 Radiology Report See Note (Normal) Comments: MAMMOGRAPHY - BILATERAL SCREENING REASON FOR EXAM: Female, 71 years old. Routine annual screeningexamination. PERTINENT HISTORY: Non-contributory. TECHNIQUE: Digital examination. Med iolateral ob lique (MLO) andcraniocaudad (CC) views of both breasts were obtained. CAD: CAD wasperformed on this study. COMPARISON: Comparison is made with prior examination dated December. FINDINGS:The breas t composition is heterogeneously dense. There are no dominant masses or suspicious calcifications. No other significant abnormalities are identified. There has been nosignificant change since the prior study. IMPRESSION:Stable bilateral screening mammogram. Yearly follow-up recommended. (A) ASSESSMENT CATEGORY:BIRADS Category 2: Benign finding(s). A letter regarding these resultswill be sent to the patient by the facility within 30 days. Approximately 10% of breast cancers are not detected by mammography. Anormal mammogram should not delay biopsy of a clinically suspiciousabnormality. To cons ult with a radiologist regarding this report, please call our [id number] line @ Dictated on 02/01/12 1242 by Beau Frye MDranscribed on 02/01/12 1312 by ITS IMPORTSign by Per Frias MD on 02/01/12 1313 Sign by: Uday OCASIOPer :40 Metabolic Panel, Comprehensive Comments: PATIENT WAS FASTINGPERFORMED BY: [facility] [id number] [facility] [id number] ([id number]) ALT (SGPT) 32 [iU]/L (Normal) Range: 0-40 AST (SGOT) 37 [iU]/L (Normal) Range: 0-40 Alkaline Phosphatase, S 84 [iU]/L (Normal) Range: 25-165 Bilirubin, Total 0.8 mg/dL (Normal) Range: 0.0-1.2 A/G Ratio 1.7 (Normal) Range: 1.1-2.5 Globulin, Total 2.6 g/dL (Normal) Range: 1.5-4.5 Albumin, Serum 4.3 g/dL (Normal) Range: 3.5-4.8 Protein, Total, Serum 6.9 g/dL (Normal) Range: 6.0-8.5 Calcium, Serum 9.1 mg/dL (Normal) Range: 8.6-10.2 Carbon Dioxide, Total 25 mmol/L (Normal) Range: 20-32 Chloride, Serum 98 mmol/L (Normal) Range: 97-108 Potassium, Serum 4.6 mmol/L (Normal) Range: 3.5-5.2 Sodium, Serum 136 mmol/L (Normal) Range: 134-144 BUN/Creatinine Ratio 18 (Normal) Range: 11-26 eGFR If Africn Am 86 mL/min/1.73 (Normal) Comments: Note: A persistent eGFR <60 mL/min/1.73 m2 (3 months or more) mayindicate chronic kidney disease. An eGFR >59 mL/min/1.73 m2 with anelevated urine protein also may indicate chronic kidney disease.Calculated using CKD-EPI formula. eGFR If NonAfricn Am 74 mL/min/1.73 (Normal) Creatinine, Serum 0.79 mg/dL (Normal) Range: 0.57-1.00 BUN 14 mg/dL (Normal) Range: 8-27 Glucose, Serum 86 mg/dL (Normal) Range: 65-99 :40 TSH ([id number]) Comments: PATIENT WAS FASTINGPERFORMED BY: [facility]CoRobert [facility] HospitalLfwjsn8855 [facility] [id number] TSH 0.343 {uIU/mL} (Abnormal) Range: 0.450-4.500 :40 CBC with manual diff Comments: PATIENT WAS FASTINGPERFORMED BY: [facility]CoRobert [facility] HospitalEhrzsd7366 [facility] [id number] Information: [id number] ([id number]) Immature Grans (Abs) 0.0 {x10E3/uL} (Normal) Range: 0.0-0.1 Immature Granulocytes 0 % (Normal) Range: 0-2 Baso (Absolute) 0.0 {x10E3/uL} (Normal) Range: 0.0-0.2 Eos (Absolute) 0.1 {x10E3/uL} (Normal) Range: 0.0-0.4 Monocytes(Absolute) 0.4 {x10E3/uL} (Normal) Range: 0.1-1.0 Lymphs (Absolute) 1.4 {x10E3/uL} (Normal) Range: 0.7-4.5 Neutrophils (Absolute) 2.1 {x10E3/uL} (Normal) Range: 1.8-7.8 Basos 1 % (Normal) Range: 0-3 Eos 3 % (Normal) Range: 0-7 Monocytes 10 % (Normal) Range: 4-13 Lymphs 35 % (Normal) Range: 14-46 Neutrophils 51 % (Normal) Range: 40-74 Platelets 308 {x10E3/uL} (Normal) Range: 140-415 RDW 13.5 % (Normal) Range: 11.7-15.0 MCHC 34.9 g/dL (Normal) Range: 32.0-36.0 MCH 32.4 pg (Normal) Range: 27.0-34.0 MCV 93 fL (Normal) Range: 80-98 Hematocrit 41.6 % (Normal) Range: 34.0-44.0 Hemoglobin 14.5 g/dL (Normal) Range: 11.5-15.0 RBC 4.47 {x10E6/uL} (Normal) Range: 3.80-5.10 WBC 4.1 {x10E3/uL} (Normal) Range: 4.0-10.5 :40 Lipid Panel ([id number]) Comments: PATIENT WAS FASTINGPERFORMED BY: [facility]CoRobert [facility] HospitalDilcpt1086 [facility] [id number] LDL/HDL Ratio 0.9 {ratio_units} (Normal) Range: 0.0-3.2 LDL Cholesterol Calc 83 mg/dL (Normal) Range: 0-99 HDL Cholesterol 92 mg/dL (Normal) Comments: According to ATP-III Guidelines, HDL-C >59 mg/dL is considered anegative risk factor for CHD. VLDL Cholesterol Elbert 10 mg/dL (Normal) Range: 5-40 Triglycerides 48 mg/dL (Normal) Range: 0-149 Cholesterol, Total 185 mg/dL (Normal) Range: 100-199 :19 LIPID VLDL 7 mg/dL (Normal) Range: 5-40 LDL 68 mg/dL (Normal) Range: 0-130 HDL 88 mg/dL (Normal) Comments: Reference Range HDL <40 mg/dL Low HDL Cholesterol HDL >or= 60 mg/dL High HDL Cholesterol TRIG 37 mg/dL (Normal) Comments: Serum Triglycerides Reference Interval Normal <150 mg/dL Borderline high 150 - 199 mg/dL High 200 - 499 mg/dL Very High > or = 500 mg/dL CHOL 163 mg/dL (Normal) Comments: <200 mg/dL Desirable 200-240 mg/dL Borderline >240 mg/dL High Risk :19 TSH 0.04 {uIU/mL} (Abnormal) Range: 0.358-3.74 30-Ggp-327812:21 BILAT SCRN DIGITAL & CAD Radiology Report See Note (Normal) Comments: MAMMOGRAPHY - BILATERAL SCREENING INDICATION:Female, 70 years old. Routine annual screening examination. PERTINENT HISTORY:Non-contributory. TECHNIQUE:Digital examination. Mediolateral oblique (MLO) a nd craniocaudad (CC)views of both breasts were obtained. CAD was performed on this study. COMPARISON:Comparison is made with prior study dated March 26, 2009. FINDINGS:The breast composition is heteroge neously dense. There are no masses or suspicious microcalcifications. No other significant abnormalities are identified. There has been nosignificant change since the prior study. IMPRESSION:Normal carole ateral screening mammogram. Yearly follow-up recommended. ASSESSMENT CATEGORY:BIRADS Category 2: Benign finding(s). A letter regarding these resultswill be sent to the patient by the facility within 30 days. Approximately 10% of breast cancers are not detected by mammography. Anormal mammogram should not delay biopsy of a clinically suspiciousabnormality. Dictated on 01/13/11 1006 by Beau Frye MDranscribed on 01/14/11 0317 by ITS IMPORTSign by Per Frye MD on 01/14/11317 Sign by: Per Frye MD 19-Wfd-410160:21 DEXA BONE DENSITY STUDY (HP) Radiology Report See Note (Normal) Comments: CLINICAL:Female, 70 years old. The patient is postmenopausal. EXAMINATION:DUAL ENERGY X-RAY ABSORPTIOMETRY / DEXA. TECHNIQUE:Bone Mineral Density (BMD) measurements of lumbar spine and bila teralhipswer e obtained using a [employer] scanner.. COMPARISON:Comparison is made with prior study dated March 26, 2009. FINDINGS: Lumbar Spine (L1-L4): g/cm2 (0.991) / T-score (-1.6) / Z-score (0 .4)Left Femur Total: g/cm2 (0. 695) / T-score (-2.5) / Z-score (-0.7)Right Femur Total: g/cm2 (0.659) / T-score (-2.8) / Z-score (-0.9) Since prior study, there has been an improvement of 6.4 % in the bonedensity. IMPRESSION:The patient is considered osteopenic, as outlined above, according toWorldHealth Organization (WHO) criteria. Fracture risk is moderate. Reference Information:The T-sco re is the number of standard deviations above or below thestandard which is normal for young adults at their peak bone mineraldensity. The World Health Organization (WHO) interprets the T-scores asfollo ws: Above -1 Normal bone densityBetween -1 and -2.5 OsteopeniaEqual to / or below -2.5 Osteoporosis As a practical clinical guideline, osteopenia may be graded as follows:Mild -1 th rough -1.5Moderate -1.6 through -2.0Severe -2.1 through -2.4 The Z-score is the number of standard deviations above or below age- matchedcontrols. A Z-score of less than -1.5 would be considere d abnormal. References:1. NIH Osteoporosis and Related Bone Diseases http://www.osteo.org2. International Society for Clinical Densitometry http://www.iscd.org3. National Osteoporosis Foundation http ://www.nof.org Dictated on 01/13/11 1027 by Beau Frye MDranscribed on 01/13/112250 by ITS IMPORTSign by Per Frye MD on 01/13/112251 Sign by: Per Frye MD :26 CBCD ABSOLUTE NEUT 1.1 3/uL (Abnormal) Range: 2.0-7.7 BASO% 0.9 % (Normal) Range: 0-1 EO% 3.1 % (Normal) Range: 0-5 LY% 43.1 % (Abnormal) Range: 19-41 MONO% 14.0 % (Abnormal) Range: 0-10 MPV 9.5 fL (Normal) Range: 6.5-12.0 NEUT% 38.9 % (Abnormal) Range: 47-70 MCHC 34.7 g/dL (Normal) Range: 32-36 PLT 196 K/mm3 (Normal) Range: 150-450 RDW 12.8 % (Normal) Range: 11.6-14.6 MCH 33.1 pg (Abnormal) Range: 27.0-32.0 MCV 95.4 fL (Normal) Range: 81-99 HCT 39.5 % (Normal) Range: 37-47 HGB 13.7 g/dL (Normal) Range: 12.0-16.0 RBC 4.15 {M/mm3} (Abnormal) Range: 4.2-5.4 WBC 2.9 K/mm3 (Abnormal) Range: 4.4-11.0 :26 COMP METABOLIC CL 102 mmol/L (Normal) Range: 98-107 CO2 25.0 mmol/L (Normal) Range: 21.0-32.0 GAP 10 (Normal) Range: 5-15 K 3.9 mmol/L (Normal) Range: 3.5-5.1 NA 137 mmol/L (Normal) Range: 136-145 T BILI 1.40 mg/dL (Abnormal) Range: 0.00-1.00 ALK P 54 U/L (Normal) Range: 50-136 ALT 29 U/L (Normal) Range: 12-78 A/G 1.2 {RATIO} (Normal) Range: 0.9-2.4 AST 28 U/L (Normal) Range: 15-37 CA 8.5 mg/dL (Normal) Range: 8.5-10.1 ALB 3.7 g/dL (Normal) Range: 3.4-5.0 GLOB 3.2 g/dL (Normal) Range: 2.7-4.2 BUN/CRE 18.6 {RATIO} (Normal) Range: 10-20 T PROT 6.9 g/dL (Normal) Range: 6.4-8.2 BUN 13 mg/dL (Normal) Range: 7-18 CREAT,SERUM 0.7 mg/dL (Normal) Range: 0.6-1.0 GLU 76 mg/dL (Normal) Range: 70-110 :26 LIPID VLDL 5 mg/dL (Normal) Range: 5-40 LDL 155 mg/dL (Abnormal) Range: 0-130 HDL 6 mg/dL (Abnormal) Comments: Reference Range HDL <40 mg/dL Low HDL Cholesterol HDL >or= 60 mg/dL High HDL Cholesterol CHOL 166 mg/dL (Normal) Comments: <200 mg/dL Desirable 200-240 mg/dL Borderline >240 mg/dL High Risk TRIG 25 mg/dL (Normal) Comments: Serum Triglycerides Reference Interval Normal <150 mg/dL Borderline high 150 - 199 mg/dL High 200 - 499 mg/dL Very High > or = 500 mg/dL :26 TSH 6.19 {uIU/mL} (Abnormal) Range: 0.358-3.74 :55 FREE T3 2.0 pg/mL (Abnormal) Range: 2.18-3.98 :55 T4 FREE DIRECT 1.2 ng/dL (Abnormal) Range: 0.76-1.146 :55 TSH 1.42 {uIU/mL} (Normal) Range: 0.358-3.74 :59 Calcium, 24Hr Urine Comments: Clinical Information: 04/30@720AM 05/01@715AM PERFORMED BY: [employer]70 [facility] [id number] Calcium, Urine 7.1 mg/dL (Normal) Calcium, Urine 24hr 213.0 {mg/24_hr} (Normal) Range: 100.0-300.0 [id number]:52 PARATHORMONE ([id number]) Comments: PATIENT NOT FASTINGPERFORMED BY: [id number] [facility] [id number] PTH, Intact 22 pg/mL (Normal) Range: 15-65 :52 Vitamin D Hydroxy ([id number]) Comments: PATIENT NOT FASTINGPERFORMED BY: [id number] [facility] [id number] Vitamin D, 25-Hydroxy 36.9 ng/mL (Normal) Range: 32.0-100.0 Comments: Recent studies consider the lower limit of 32.0 ng/mL to be athreshold for optimal health.Raj TINAJERO. J Nutr. 2004;135(2):317-22. 69-Bip-[id number]:52 SPEP ([id number]) Comments: PATIENT NOT FASTINGClinical Information: ADD DRAW FEE [id number], [id number] PERFORMED BY: [email or web address] [facility] [id number] A/G Ratio 1.5 (Normal) Range: 0.7-2.0 Globulin, Total 2.9 g/dL (Normal) Range: 2.0-4.5 Please note: SPRCS (Normal) Comments: Protein electrophoresis scan will follow via computer, mail, orcourier delivery. Albumin 4.3 g/dL (Normal) Range: 3.2-5.6 Bropa-3-Msexctan 0.2 g/dL (Normal) Range: 0.1-0.4 Qhzae-3-Mvojqyht 0.6 g/dL (Normal) Range: 0.4-1.2 Beta Globulin 1.0 g/dL (Normal) Range: 0.6-1.3 Gamma Globulin 1.1 g/dL (Normal) Range: 0.5-1.6 M-Carlton Not Observed g/dL (Normal) Protein, Total, Serum 7.2 g/dL (Normal) Range: 6.0-8.5 :15 BILAT SCRN DIGITAL & CAD Radiology Report See Note (Normal) Comments: Exam Number: [id number] MAMMOGRAM, BILATERAL SCREENING DIGITAL AND CAD HISTORYRoutine screening. Full field digital images were obtained in mediolateral oblique andcraniocaudal projections. CAD images w ere reviewed. The current study is compared to the examinations of March 22, 2007, andMarch 21, 2008. On the right, a small metal marker is placed on an accessory nipple. There is a severe extent of fibro glandular parenchyma present. Thereis no skin thickening or retraction, architectural distortion, orcluster of suspicious microcalcifications. There is no dominant massor significant interval change s een. If there is no suspiciouspalpable abnormality, followup mammogram in 1 year is recommended. IMPRESSIONThere is no radiographic evidence of malignancy identified. FINAL ASSESSMENTBIRADS Category 2 - Benign. A letter regarding these results has been sent to the patient. This interpretation was rendered by a radiologist certified under theMammography Quality Standards Act of 1992 (MQSA). The mamm ograms werealso examined with computer-aided detection software (ImageCorrelsense, [employer], [employer].). Reported By: MACY ESCOBEDO M.D. :15 DEXA BONE DENSITY STUDY (HP) Radiology Report See Note (Normal) Comments: Exam Number: [id number] BONE DENSITOMETRY HISTORYOsteopenia. TECHNIQUE Bone densitometry of the lumbar spine and both hips is now beingperformed. The best criteria for evaluation of os teoporosis i s theT-value, which represents the comparison of the patient's bone mass cristela expected peak bone mass. For most patients, the mean T-value of [id number] L4 is used to evaluate the lumbar spine. To eval uate the hip,the lower T-value of the femoral neck or total hip is used. FINDINGSIn this patient, the mean T-value of L1 through L4 is -2.1, which isin the range of osteopenia. Bone mineral density is measured at 5.4%less than in 1999. Digital lateral view for evaluation of vertebraldeformity only demonstrates no compression fractures. The T-value ofthe left femoral neck is -2.6, which is in the ra nge of osteoporosis. The T-value of the total left hip is -2.5, which is in the range ofosteoporosis. Bone mineral density is measured at 7.7% less than [id number]. The T-value of the right femoral neck i s -2.7, which is in therange of osteoporosis. The T-value of the total right hip is -2.9,which is in the range of osteoporosis. IMPRESSIONThere is osteopenia of the lumbar spine. There is osteoporos is ofboth hips. Reported By: MACY ESCOBEDO M.D. 75-Hiv-803115:04 TSH ([id number]) Comments: PATIENT NOT FASTINGPERFORMED BY: [employer] [facility] Obazrj9071 [facility] [id number] TSH 2.690 {uIU/mL} (Normal) Range: 0.450-4.500 45-Uwh-305573:04 METABOLIC PANEL, COMPREHENSIVE Comments: PATIENT NOT FASTINGPERFORMED BY: [employer] [facility] [id number] [facility] [id number] ([id number]) A/G Ratio 1.6 (Normal) Range: 1.1-2.5 Albumin, Serum 4.4 g/dL (Normal) Range: 3.5-4.8 Alkaline Phosphatase, S 76 [iU]/L (Normal) Range: 25-165 ALT (SGPT) 17 [iU]/L (Normal) Range: 0-40 AST (SGOT) 27 [iU]/L (Normal) Range: 0-40 Bilirubin, Total 1.2 mg/dL (Normal) Range: 0.1-1.2 BUN 8 mg/dL (Normal) Range: 5-26 BUN/Creatinine Ratio 10 (Normal) Range: 8-27 Calcium, Serum 9.4 mg/dL (Normal) Range: 8.5-10.6 Carbon Dioxide, Total 22 mmol/L (Normal) Range: 20-32 Chloride, Serum 103 mmol/L (Normal) Range: 97-108 Creatinine, Serum 0.79 mg/dL (Normal) Range: 0.57-1.00 eGFR >59 mL/min/1.73 (Normal) eGFR AfricanAmerican >59 mL/min/1.73 Comments: Note: Persistent reduction for 3 months or more in an eGFR<60 mL/min/1.73 m2 defines CKD. Patients with eGFR values>/=60 mL/min/1.73 m2 may also have CKD if evidence of persistentproteinuria is (Normal) present. Additional information may be found [email or web address]. Globulin, Total 2.8 g/dL (Normal) Range: 1.5-4.5 Glucose, Serum 82 mg/dL (Normal) Range: 65-99 Potassium, Serum 4.7 mmol/L (Normal) Range: 3.5-5.2 Protein, Total, Serum 7.2 g/dL (Normal) Range: 6.0-8.5 Sodium, Serum 139 mmol/L (Normal) Range: 135-145 63-Usm-017236:04 CBC WITH MANUAL DIFF ([id number]) Comments: PATIENT NOT FASTINGClinical Information: ADD DRAW FE [id number] ADD J0 [id number] PERFORMED BY: [facility]je3194 [facility] [id number] Baso (Absolute) 0.0 {x10E3/uL} (Normal) Range: 0.0-0.2 Basos 1 % (Normal) Range: 0-3 Eos 3 % (Normal) Range: 0-7 Eos (Absolute) 0.1 {x10E3/uL} (Normal) Range: 0.0-0.4 Lymphs (Absolute) 1.3 {x10E3/uL} (Normal) Range: 0.7-4.5 Monocytes 9 % (Normal) Range: 4-13 Monocytes(Absolute) 0.3 {x10E3/uL} (Normal) Range: 0.1-1.0 Neutrophils (Absolute) 1.8 {x10E3/uL} (Normal) Range: 1.8-7.8 Hematocrit 40.2 % (Normal) Range: 34.0-44.0 Hemoglobin 13.9 g/dL (Normal) Range: 11.5-15.0 Lymphs 36 % (Normal) Range: 14-46 MCH 32.7 pg (Normal) Range: 27.0-34.0 MCHC 34.7 g/dL (Normal) Range: 32.0-36.0 MCV 94 fL (Normal) Range: 80-98 Neutrophils 51 % (Normal) Range: 40-74 Platelets 218 {x10E3/uL} (Normal) Range: 140-415 Comments: Please note reference interval change RBC 4.26 {x10E6/uL} (Normal) Range: 3.80-5.10 RDW 12.9 % (Normal) Range: 11.7-15.0 WBC 3.6 {x10E3/uL} (Abnormal) Range: 4.0-10.5 59-Qlb-845162:08 Thin prep Pap Comments: Source.............Cervical;EndocervicalLMP / Prev Treat...OZO=[id number]. of containers..01 CYTYC Thin Prep VialPATIENT NOT FASTINGClinical Information: ADD [id number] ([id number]) PERFORMED BY: [facility] [id number] Note: PAPSMR (Normal) Comments: The Pap smear is a screening test designed to aid in the detection ofpremalignant and malignant conditions of the uterine cervix. It is not adiagnostic procedure and should not be used as the sole mean s of detectingcervical cancer. Both false-positive and false-negative reports do occur. .The HPV DNA reflex criteria were not met with this specimen resulttherefore, no HPV testing was performed. . . . (Normal) DIAGNOSIS: SPRCS (Normal) Comments: UNSATISFACTORY FOR EVALUATION.Suggest follow up as clinically appropriate.Specimen processed and examined but unsatisfactory for evaluation becauseof insufficient cellularity.V76.2 ; Screening for malig nant neoplasm of the cervixTahir Flores, Graphic Specialist ([facility])Alesha Soria, Supervisory Graphic Specialist ([facility]) 89-Mbz-160899:21 BILAT SCRN DIGITAL & CAD Radiology Report See Note (Normal) Comments: Exam Number: [id number] SCREENING MAMMOGRAMS WITH CAD COMPARISON STUDIESJun2006, and February 13, 2006. TECHNIQUERoutine craniocaudal and mediolateral oblique views are obtained ofeach breast using digita l technique. CAD is also performed. There is heterogeneously dense breast density bilaterally. There isno worrisome mass, typically malignant-type microcalcification orarchitectural distortion in eithe r breast. There is no significantinterval change. IMPRESSIONNo mammographic evidence for cancer in either breast. Routinebilateral annual screening assessment is recommended. BIRADS Category 1. Negat christo. A letter regarding the results has been sent to the patient. This interpretation was rendered by a radiologist certified under theMammography Quality Standards Act of 1992 (MQSA). The mammograms werealso examined with computer-aided detection software ([employer]are, [employer], [employer].). Reported By: ULYSSES GALVEZ M.D. :59 CBCD,SMEAR DIFF BAND 1 % (Normal) Range: 0-5 CELLS COUNTED 100 (Normal) EOS 3 % (Normal) Range: 0-5 HCT 38.0 % (Normal) Range: 37-47 HGB 13.2 g/dL (Normal) Range: 12.0-16.0 LYMPH 42 % (Abnormal) Range: 19-41 MCH 32.6 pg (Abnormal) Range: 27.0-32.0 MCHC 34.6 g/dL (Normal) Range: 32-36 MCV 94.1 fL (Normal) Range: 81-99 MONOCYTE 11 % (Abnormal) Range: 0-10 PLT 222 K/mm3 (Normal) Range: 150-450 PLT EST SeeNote (Normal) Comments: Result: ADEQUATE RBC 4.04 {M/mm3} (Abnormal) Range: 4.2-5.4 RDW 12.4 % (Normal) Range: 11.6-14.6 RED CELL MORPH SeeNote {NORMAL} (Normal) Comments: Result: NORM C+C SEGS 43 % (Abnormal) Range: 47-70 WBC 3.8 K/mm3 (Abnormal) Range: 4.4-11.0 :59 COMP METABOLIC ALK P 71 U/L (Normal) Range: 50-136 ALT 32 [iU]/L (Normal) Range: 30-65 AST 25 U/L (Normal) Range: 15-37 CA 8.6 mg/dL (Normal) Range: 8.5-10.1 CL 101 mmol/L (Normal) Range: 98-107 CO2 27.4 mmol/L (Normal) Range: 21.0-32.0 GAP 8 (Normal) Range: 5-15 K 3.7 mmol/L (Normal) Range: 3.5-5.1 NA 136 mmol/L (Normal) Range: 136-145 T BILI 0.96 mg/dL (Normal) Range: 0.00-1.00 A/G 1.1 {RATIO} (Normal) Range: 0.9-2.4 ALB 3.5 g/dL (Normal) Range: 3.4-5.0 BUN 11 mg/dL (Normal) Range: 7-18 BUN/CRE 13.8 {RATIO} (Normal) Range: 10-20 CREAT,SERUM 0.8 mg/dL (Normal) Range: 0.6-1.0 GLOB 3.1 g/dL (Normal) Range: 2.7-4.2 GLU 78 mg/dL (Normal) Range: 70-110 T PROT 6.6 g/dL (Normal) Range: 6.4-8.2 :59 LIPID CHOL 147 mg/dL (Normal) Comments: <200 mg/dL Desirable 200-240 mg/dL Borderline >240 mg/dL High Risk HDL 68 mg/dL (Normal) Comments: Reference Range HDL <40 mg/dL Low HDL Cholesterol HDL >or= 60 mg/dL High HDL Cholesterol LDL 72 mg/dL (Normal) Range: 0-130 TRIG 34 mg/dL (Normal) Comments: Serum Triglycerides Reference Interval Normal <150 mg/dL Borderline high 150 - 199 mg/dL High 200 - 499 mg/dL Very High > or = 500 mg/dL VLDL 7 mg/dL (Normal) Range: 5-40 :59 TSH 5.73 {uIU/mL} (Abnormal) Range: 0.34-4.82 :36 DEXA BONE DENSITY STUDY (HP) Radiology Report See Note (Normal) Comments: Exam Number: [id number] BONE DENSITOMETRY HISTORYOsteopenia. TECHNIQUE Bone densitometry of the lumbar spine and left hip was performed. Thebest criteria for evaluation of osteoporosis is the T-hayley ue whichrepresents the comparison of the patient's bone mass to an expectedpeak bone mass. For most patients, the mean T-value of L1 through L4and the T-value of the total left hip are most useful. F INDINGSIn this patient, the mean T-value of L1 through L4 is -2.1 which is inthe range of osteopenia. Digital lateral view for evaluation ofvertebral deformity only demonstrates no obvious compressionfr actures. Bone mineral density is measured at 6% less than in 1998and 3% more than in 2004. The T-value of the left femoral neck is -2.8 which is in the range ofosteoporosis. T-value of the total lef t hip is -2.5 which is in therange of osteoporosis. Bone mineral density is measured at 7.7% lessthan in 1998 and 1.6% less than in 2004. IMPRESSIONThere is osteopenia of the lumbar spine. There is os teoporosis of thetotal left hip. Reported By: MACY ESCOBEDO M.D. :36 MAMM, BILAT SCRN DIGITAL & CAD Radiology Report See Note (Normal) Comments: Exam Number: [id number] MAMMOGRAPHY, BILATERAL SCREENING DIGITAL AND CAD HISTORYRoutine screening. Full field digital images were obtained in mediolateral oblique andcraniocaudal projections . CAD image s were reviewed. The current study is compared to the examinations of December 2004 andFebruary 2006. There is moderately dense fibroglandular parenchyma present. There isno skin thickening or retraction, ar chitectural distortion, or clusterof suspicious microcalcifications. There are scattered calcificationspresent. If there is no suspicious palpable abnormality, followupmammogram in 1 year is recommend ed. IMPRESSIONThere is no radiographic evidence of malignancy identified. FINAL ASSESSMENTBenign findings. BIRADS Category 2. A letter regarding these results has been sent to the patient. This inter pretation was rendered by a radiologist certified under theMammography Quality Standards Act of 1992 (MQSA). The mammograms werealso examined with computer- aided detection software (Imagechecker, [employer] Reported By: MACY ESCOBEDO M.D. 6-Xgp-045579:47 CBCD BASO% 1.5 % (Abnormal) Range: 0-1 EO% 2.7 % (Normal) Range: 0-5 HCT 38.7 % (Normal) Range: 37-47 HGB 13.6 g/dL (Normal) Range: 12.0-16.0 LY% 32.8 % (Normal) Range: 19-41 MCH 32.3 pg (Abnormal) Range: 27.0-32.0 MCHC 35.3 g/dL (Normal) Range: 32-36 MCV 91.6 fL (Normal) Range: 81-99 MONO% 12.5 % (Abnormal) Range: 0-10 MPV 8.9 fL (Normal) Range: 6.5-12.0 NEUT% 50.5 % (Normal) Range: 47-70 PLT 227 K/mm3 (Normal) Range: 150-450 RBC 4.22 {M/mm3} (Normal) Range: 4.2-5.4 RDW 12.8 % (Normal) Range: 11.6-14.6 WBC 3.5 K/mm3 (Abnormal) Range: 4.4-11.0 :47 COMP METABOLIC A/G 1.0 {RATIO} (Normal) Range: 0.9-2.4 ALB 3.6 g/dL (Normal) Range: 3.4-5.0 ALK P 65 U/L (Normal) Range: 50-136 ALT 34 [iU]/L (Normal) Range: 30-65 AST 23 U/L (Normal) Range: 15-37 BUN 10 mg/dL (Normal) Range: 7-18 BUN/CRE 14.3 {RATIO} (Normal) Range: 10-20 CA 8.7 mg/dL (Normal) Range: 8.5-10.1 CL 102 mmol/L (Normal) Range: 98-107 CO2 28.8 mmol/L (Normal) Range: 22.0-29.0 CREAT,SERUM 0.7 mg/dL (Normal) Range: 0.6-1.0 GAP 5 (Normal) Range: 5-15 GLOB 3.6 g/dL (Abnormal) Range: 2.3-3.5 GLU 81 mg/dL (Normal) Range: 70-110 K 4.1 mmol/L (Normal) Range: 3.5-5.1 NA 136 mmol/L (Normal) Range: 136-145 T BILI 1.22 mg/dL (Abnormal) Range: 0.00-1.00 T PROT 7.2 g/dL (Normal) Range: 6.4-8.2 5-Nlz-546775:47 TSH 3.90 {uIU/mL} (Normal) Range: 0.34-4.82 Plan of Care Name Dates Details Instructions Nonsmoker : Eprescribed prescriptions (G8553) Indication: Nonsmoker BMI 20.0-20.9, adult : Follow up in 3 months Indication: BMI 20.0-20.9, adult Hypertension : Eprescribed prescriptions (G8553) Indication: Hypertension Nonsmoker : Follow up in 6 months Indication: Nonsmoker Leukopenia : Reviewed Lab Indication: Leukopenia Leukopenia : Reviewed Lab Indication: Leukopenia Hypothyroidism : Eprescribed prescriptions (G8553) Indication: Hypothyroidism Vitamin D insufficiency : Reviewed Lab Indication: Vitamin D insufficiency Leukopenia : Reviewed Lab Indication: Leukopenia Leukopenia : Reviewed [employer] Letter Indication: Leukopenia Nonsmoker : Eprescribed prescriptions (G8553) Indication: Nonsmoker Hyperlipidemia : Follow up if no improvement or if symptoms worsen Indication: Hyperlipidemia Osteoporosis : Eprescribed prescriptions (G8553) Indication: Osteoporosis Nonsmoker : Follow up in 6 months Indication: Nonsmoker Leukopenia : Follow up in 6 months Indication: Leukopenia Hyperlipidemia : Reviewed Lab Indication: Hyperlipidemia Hyperlipidemia : Eprescribed prescriptions (G8553) Indication: Hyperlipidemia Screening for malignant neoplasm of cervix : Colon Cancer Screening Indication: Screening for malignant neoplasm of cervix Screening for malignant neoplasm of cervix : Well Female Maintenance (KF) Indication: Screening for malignant neoplasm of cervix Rash : Skin Infection - Signs and Symptoms Indication: Rash Rash : Punch Biopsy with Epi Indication: Rash Rash : Skin Infection - Signs and Symptoms Indication: Rash Screening for malignant neoplasm of cervix : Colon Cancer Screening Indication: Screening for malignant neoplasm of cervix Screening for malignant neoplasm of cervix : Self Breast Exam Education Indication: Screening for malignant neoplasm of cervix Screening for malignant neoplasm of cervix : Well Female Maintenance (KF) Indication: Screening for malignant neoplasm of cervix Planned Observations METABOLIC PANEL, COMPREHENSIVE ([id number])Indication: Hypertension On: 9-Xvx-716959:13 Request CBC, PLATELETS & AUT DIFF (29539)Indication: Hypertension On: 2-Psq-502847:13 Request TSH (THYROID STIMULATING HORMONE) (45538)Indication: Hypothyroidism On: 24-Jul-20189:57 Request HEPATIC FUNCTION PANEL (60563)Indication: Neutropenia On: :52 Request SMEAR+INTERP ROUTN STAIN (39584)Indication: Neutropenia On: :51 Request CBC & PLATELETS (AUTO) (11437)Indication: Leukopenia On: :22 Request Comments: Jul 2018 TSH (THYROID STIMULATING HORMONE) (28615)Indication: Hypothyroidism On: :22 Request Comments: Jul 2018 TSH (THYROID STIMULATING HORMONE) (51154)Indication: Hypothyroidism On: 95-Sbl-585746:52 Request CALCIFEDIOL (29985)Indication: Vitamin D insufficiency On: 35-Zga-204116:00 Request Comments: Repeat in Aug 2017 TSH (THYROID STIMULATING HORMONE) (53741)Indication: Hypothyroidism On: 30-Soy-195658:58 Request Comments: Repeat Week of 2016 CBC, Platelets & Auto Diff (21373)Indication: Leukopenia On: 70-Zzm-351080:55 Request Comments: Aug 2017 CALCIFEDIOL (93649)Indication: Osteoporosis On: 8-Dqm-260414:54 Request TSH (59916)Indication: Hypothyroidism On: 6-Ycl-791928:54 Request CBC, Platelets & Auto Diff (37841)Indication: Leukopenia On: 5-Fvq-313259:54 Request Lipid Panel (85993)Indication: Hyperlipidemia On: 7-Jti-530012:54 Request Metabolic Panel, Comprehensive (22603)Indication: Leukopenia On: :54 Request T4, FREE (THYROXINE) (61281)Indication: Hypothyroidism On: :02 Request TSH (40018)Indication: Hypothyroidism On: :02 Request T3, FREE (TRIDOTHYRONINE) (37461)Indication: Hypothyroidism On: :01 Request Lipid Panel (56648)Indication: Hyperlipidemia On: :01 Request Metabolic Panel, Comprehensive (55209)Indication: Hyperlipidemia On: :01 Request CBC with manual diff (68101)Indication: Leukopenia On: :01 Request TSH (69989)Indication: Abnormal TSH On: :54 Request TSH (THYROID STIMULATING HORMONE) (86834)Indication: Hypothyroidism On: :37 Request TSH (31566)Indication: Hypothyroidism On: :56 Request METABOLIC PANEL, COMPREHENSIVE (30980)Indication: Hypothyroidism On: 99-Nam-564178:52 Request LIPID PANEL (47691)Indication: Hypothyroidism On: 97-Blt-194068:52 Request TSH (THYROID STIMULATING HORMONE) (81249)Indication: Hypothyroidism On: 39-Mkd-851981:52 Request CBC & PLATELETS (AUTO) (06165)Indication: Leukopenia On: 16-Bee-711006:52 Request URINE CALCIUM DONNA TIMED 24 Hour (23236)Indication: Osteoporosis On: 43-Guz-758327:08 Request Metabolic Panel, Comprehensive (00768)Indication: Hypothyroidism On: :30 Request Comments: low sodium TSH (31131)Indication: Hypothyroidism On: :29 Request CBC, Platelets & Auto Diff (13196)Indication: Leukopenia On: :29 Request Planned Encounters Medical; 6 Month FU - On: 03-Oct-2018 9:30 [facility] Kristie Meadows CNP, CNP, Mary E Planned Procedures Wax Currettes (78230)By: Jaxson On: 03-Apr-2018 Intent John Ear Irrigation (96725)By: Jaxson On: 03-Apr-2018 Intent John ELECTROCARDIOGRAM, COMPLETE (ECG) On: 03-Apr-2018 Intent (72625)By: Kristie Meadows CNP Comments: reate 95 sinus rhythm,, left atrial enlargement, neg t waves may be normal possible anteroseptal/anterior ischemia Kristie MACHADO MAMMOGRAM BREAST BILATERAL SCREENING On: 21-Feb-2018 Intent DIGITAL ([id number])By: Kristie Meadows CNP, CNP, Mary E MAMMOGRAM BREAST BILATERAL SCREENING On: 24-Feb-2017 Intent DIGITAL ([id number])By: Kristie Meadows CNP, CNP, Mary E DEXA SCAN AXIAL SKELETON ([id number])By: On: 24-Feb-2017 Intent Kristie Meadows CNP, CNP, Mary E Breast Screening - BilateralBy: On: 26-Jan-2012 Intent Yuli Schaefer MD Ear Irrigation (61429)By: Darci On: 07-Feb-2011 Intent Jo FERRARA Wax CurettesBy: Yuli Schaefer MD On: 03-Feb-2011 Intent Ear Irrigation (05621)By: Olive On: 03-Feb-2011 Intent Yuli OCASIO Eprescribed prescriptions (G8553)By: On: 03-Feb-2011 Intent Yuli Schaefer MD Breast Screening - BilateralBy: On: 03-Jan-2011 Intent Yuli Schaefer MD Bone Density StudyBy: Olive OCASIO, On: 03-Jan-2011 Intent Yuli Trivedi Wax CurettesBy: Ciesa JEANNETTE Ludy On: 17-Mar-2009 Intent Ciesa JEANNETTE Ludy Ear Irrigation ([id number])By: Fuada On: 17-Mar-2009 Intent Kristie MACHADO E Ciesa JEANNETTE Ludy Comments: Ear irrigation performed on:left earAmt/Color of removed cerumen: very minimal amt white curemenOutcome: Tolerated well, but with minimal results, Kristie is referring to ENT.Used wax currettes. -JOSIAS Howell DXA, BONE DENSITY, AXIAL SKELETON On: 12-Mar-2009 Intent (62097)By: Yuli Schaefer MD Pap Smear, Medicare ([id number])By: On: 12-Mar-2009 Intent Yuli Schaefer MD Pelvic and Breast, Medicare On: 12-Mar-2009 Intent ([id number])By: Yuli Schaefer MD MAMMOGRAM, SCREENING, BOTH BREASTS On: 12-Mar-2009 Intent ([id number])By: Yuli Schaefer MD Ear Irrigation (98863)By: Ciesjae On: 10-Mar-2009 Intent JEANNETTE, Ludy Ciesa BARN AND PROPERTY MANAGER, Ludy Wax CurettesBy: Ciesa BARN AND PROPERTY MANAGER, Ludy On: 10-Mar-2009 Intent Ciesa BARN AND PROPERTY MANAGER, Ludy Wax CurettesBy: Ciesa BARN AND PROPERTY MANAGER, Ludy On: 05-Mar-2009 Intent Ciesa BARN AND PROPERTY MANAGER, Ludy Ear Irrigation ([id number])By: Ciesa On: 05-Mar-2009 Intent BARN AND PROPERTY MANAGER, Ludy Ciesa BARN AND PROPERTY MANAGER, Ludy TD Injection , IM ([id number])By: On: 24-Mar-2008 Intent Yuli Schaefer MD MAMMOGRAM, SCREENING, BOTH BREASTS On: 24-Mar-2008 Intent ([id number])By: Yuli Schaefer MD MAMMOGRAM, SCREENING, BOTH BREASTS On: 13-Feb-2007 Intent ([id number])By: Yuli Schaefer MD Pap Smear, Medicare ([id number])By: On: 13-Feb-2007 Intent Yuli Schaefer MD Pelvic and Breast, Medicare On: 13-Feb-2007 Intent ([id number])By: Yuli Schaefer MD Bone Density StudyBy: Olive OCASIO, On: 13-Feb-2007 Intent Yuli Trivedi Instructions Name Dates Details Nonsmoker : How to access health information online Indication: Nonsmoker Nonsmoker : How to access health information online - Detail Indication: Nonsmoker Nonsmoker : Patient Instructions Indication: Nonsmoker Hypertension : How to access health information online - Detail Indication: Hypertension Hypertension : How to access health information online Indication: Hypertension BMI 20.0-20.9, adult : Patient Instructions Indication: BMI 20.0-20.9, adult Hypothyroidism : How to access health information online Indication: Hypothyroidism Hypothyroidism : How to access health information online - Detail Indication: Hypothyroidism Hypothyroidism : Patient Instructions Indication: Hypothyroidism Hypothyroidism : Patient Instructions Indication: Hypothyroidism Nonsmoker : How to access health information online Indication: Nonsmoker Nonsmoker : How to access health information online - Detail Indication: Nonsmoker Nonsmoker : Patient Instructions Indication: Nonsmoker Hyperlipidemia : DISCONTINUED - LIPID PANEL (62391) Indication: Hyperlipidemia Osteoporosis : How to access health information online Indication: Osteoporosis Osteoporosis : How to access health information online - Detail Indication: Osteoporosis Osteoporosis : Patient Instructions Indication: Osteoporosis Leukopenia : Patient Instructions Indication: Leukopenia Hyperlipidemia : How to access health information online Indication: Hyperlipidemia Hyperlipidemia : How to access health information online Indication: Hyperlipidemia Hyperlipidemia : How to access health information online - Detail Indication: Hyperlipidemia Leukopenia : Patient Instructions Indication: Leukopenia Advance Directives Name Dates Details Immunization Registry [place] - Effective on 07/24/2018. Effective: 24-Jul-2018 Expiration date unspecified Encounters Lab Order On: 21-Sep-2018 13:12 Encounter Diagnosis: Hypertension End: 21-Sep-2018 13:14 [facility] Office Visit On: 24-Jul-2018 8:56 Encounter Reason: Follow up for chronic medical issues - The patient feels well with minor complaints, has decreased energy level and is sleeping well (getting up to go the bathroom a lot). Patient has been compliant wit End: 24-Jul-2018 10:01 h instructions. Current medication use: no side effects, compliant with dosing regimen and considered effective by patient. Patient sleeps 8 hours per night. Impact of disease: emotional impact-mild. Nu trition: balanced diet and supplemental vitamins. The medical issues the patient is following up for include hypothyroid, osteoporosis/osteopenia and other (leukopenia ). blood pressure range : (133-111 /87-69). Note for Follow up for chronic medical issues: needs refillsGetting up at nightFeels like been run over by semi, [ADDITIONAL REASON] Follow up tests - Diagnostic tests include other (labs). Date: (07/17/18). Encounter Diagnosis: Nonsmoker , BMI 20.0-20.9, adult, Hypothyroidism, Osteoporosis (733.00), Hypertension, Nocturia, Neutropenia [facility] Phone Encounter On: 09-May-2018 9:29 [facility] End: 09-May-2018 9:30 Office Visit On: 20-Apr-2018 7:24 Encounter Reason: Follow up Hypertension - The patient has experienced follow up hypertension for 2 weeks. blood pressure range : (128/75-167/91 P70-93). Note for Follow up Hypertension: BP diary brought in with freque End: 20-Apr-2018 9:40 nt measurements.4 times daily with hypertension notedEncounter Diagnosis: Nonsmoker, BMI 20.0-20.9, adult, Hypertension, Leukopenia, Hypothyroidism [facility] Office Visit On: 03-Apr-2018 8:23 Encounter Reason: Follow up for chronic medical issues - The patient feels well with no complaints, has good energy level and is sleeping well. Patient has been compliant with instructions. Current medication use: no barb End: 03-Apr-2018 9:10 e effects, compliant with dosing regimen and considered effective by patient. Patient sleeps 8 hours per night. Impact of disease: emotional impact-mild. Nutrition: balanced diet and supplemental vitami ns. The medical issues the patient is following up for include hypothyroid, osteoporosis/osteopenia and other (leukopenia )., [ADDITIONAL REASON] Ceruminosis - Symptoms include ear fullness and hearing impairment. Symptoms are located in both ears. Note for Ceruminosis: been putting in debrox for several days Encounter Diagnosis: Hypothyroidism, BMI 20.0-20.9, adult, Nonsmoker, Elevated blood pressure reading, Cerumen impaction, Leukopenia [facility] Phone Encounter On: 21-Feb-2018 10:06 Encounter Diagnosis: Breast screening End: 21-Feb-2018 10:50 [facility] Phone Encounter On: 16-Feb-2018 10:41 [facility] End: 16-Feb-2018 10:42 Office Visit On: 30-Aug-2017 9:13 Encounter Reason: Follow up tests - Date: (08.24.17 - see patient message to you from Daniella Meza NP -- h/o leukopenia)., [ADDITIONAL REASON] Follow up for chronic medical issues - The patient feels well with no complaints End: 30-Aug-2017 10:22 , has good energy level and is sleeping well. Patient has been compliant with instructions. Current medication use: no side effects, compliant with dosing regimen and considered effective by patient. Santo goodrich sleeps 8 hours per night. Impact of disease: emotional impact-mild. Nutrition: balanced diet and supplemental vitamins. The medical issues the patient is following up for include hypothyroid, osteoporosis/osteopenia and other (leukopenia ). 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), Osteoporosis (733.00), BMI 20.0-20.9, adult, Leukopenia, Vitamin D insufficiency [facility] Lab Order On: 10-Apr-2017 17:46 Encounter Diagnosis: Hypothyroidism End: 10-Apr-2017 17:52 [facility] Phone Encounter On: 27-Mar-2017 14:36 Encounter Diagnosis: Osteoporosis (733.00) End: 27-Mar-2017 14:45 [facility] Office Visit On: 27-Mar-2017 10:05 Encounter Reason: Follow up tests - Date: (03/15 DEXA and MAMMO).Encounter Diagnosis: Nonsmoker, BMI between 19-24,adult, Osteoporosis (733.00), Hyperlipidemia End: 27-Mar-2017 11:59 [facility] Office Visit On: 24-Feb-2017 10:17 Encounter Reason: new patient female physical - Last seen more than 1 year ago. General health: feels well with minor complaints (overactive bladder, allgergies, thyroid) and is sleeping well. The patient's appetite is n End: 24-Feb-2017 11:08 ormal. Sleeps on average 8 hours per night. Elimination problems include urinary frequency. There are no current emotional problems. screening, mammography.Encounter Diagnosis: Hypothyroidism, Osteoporosis (733.00), Breast cancer screening, BMI between 19-24,adult, Nonsmoker, Hyperlipidemia, Vitamin D insufficiency, Leukopenia [facility] Annotation/Addendum On: 15-Feb-2017 14:53 Encounter Diagnosis: Leukopenia, Hyperlipidemia, Hypothyroidism, Osteoporosis (733.00) End: 15-Feb-2017 14:55 [facility] Lab Order On: 06-Dec-2012 7:56 Encounter Diagnosis: Hypothyroidism (244.9), Hyperlipidemia (272.4), Leukopenia (288.0) End: 06-Dec-2012 8:03 [facility] Lab Order On: 07-Jun-2012 8:53 Encounter Diagnosis: Abnormal TSH (794.5) End: 07-Jun-2012 8:55 [facility] Phone Encounter On: 09-Feb-2012 9:36 Encounter Diagnosis: Hypothyroidism (244.9) End: 09-Feb-2012 9:38 [facility] Office Visit On: 03-Feb-2012 8:23 Encounter Reason: Follow up for chronic medical issues - The patient feels well with no complaints, has good energy level and is sleeping well. Patient has been compliant with instructions. Current medication use: no barb End: 03-Feb-2012 9:01 e effects, compliant with dosing regimen and considered effective by patient. Patient sleeps 7 hours per night. Impact of disease: emotional impact-mild. Nutrition: balanced diet and supplemental vitami ns. The medical issues the patient is following up for include hypothyroid, osteoporosis/osteopenia and other (leukopenia ).Encounter Diagnosis: Hyperlipidemia (272.4), Hypothyroidism (244.9), Osteoporosis (733.00), Leukopenia (288.0), Well Woman Exam , Medicare (V76.2) [facility] Annotation/Addendum On: 26-Jan-2012 8:52 Encounter Diagnosis: SCREENING MAMMOGRAM NEC (V76.12) End: 26-Jan-2012 9:01 [facility] Annotation/Addendum On: 26-Dec-2011 14:13 Encounter Diagnosis: Hyperlipidemia (272.4), Hypothyroidism (244.9) End: 26-Dec-2011 14:18 [facility] Annotation/Addendum On: 28-Apr-2011 12:55 Encounter Diagnosis: Hypothyroidism (244.9) End: 28-Apr-2011 12:56 [facility] Office Visit On: 07-Feb-2011 9:04 Encounter Reason: Follow up acute care visit - The patient feels the same. Patient has been compliant (usuing debrox- AU) with instructions. Current medication use: no side effects and compliant with dosing regimen. The End: 07-Feb-2011 9:37 medical issues the patient is following up for include All identified problems below and other (cerumen impaction ).Encounter Diagnosis: Cerumen impaction (380.4) [facility] Office Visit On: 03-Feb-2011 8:11 Encounter Reason: Follow up for chronic medical issues - The patient feels well with minor complaints, has good energy level and is sleeping well. Patient has been compliant with instructions. Current medication use: no End: 03-Feb-2011 20:51 side effects and compliant with dosing regimen. Patient sleeps 7 hours per night. Impact of disease: emotional impact-mild. Nutrition: balanced diet and supplemental vitamins. 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 Date: (11/27/09). Current symptoms/reason for visit include/s Follow up visit with no current symptoms. There is a family history of iain End: 08-Dec-2009 12:05 ast cancer ,cardiovascular disease ,cystic fibrosis ,Down's syndrome ,mental retardation ,myocardial infarction before age 55 and other. Past medical history includes none ,abnormal Pap smear ,anatomic urinary anomalies ,anemia ,angina ,asthma ,cardiovascular disease ,chest injury ,chlamydia infection ,chronic obstructive lung disease ,congenital/chromosomal defects ,congestive heart disease ,coronary artery disease ,current ,diabetes mellitus ,elevated cholesterol ,elevated triglycerides ,emotional problems ,gastroesophageal reflux disease ,genital warts / HPV ,hepatitis B ,herpes genital is ,HIV infection ,hypertension ,hyperthyroidism ,hypothyroidism ,injury ,iron deficiency anemia ,irritable bowel disease ,kidney disease ,liver disease ,lung disease ,mental retardation ,mitral valve d isease ,neurologic disorder ,pelvic inflammatory disease ,peptic ulcer disease ,perimenopause ,peripheral vascular disease ,psychiatric illness ,recurrent urinary tract infections ,renal disease ,sexually transmitted disease and other. Encounter Diagnosis: Abnormal TSH (794.5), Hypothyroidism (244.9) [facility] Phone Encounter On: 21-Oct-2009 10:32 [facility] End: 21-Oct-2009 10:44 Office Visit On: 29-Apr-2009 9:20 Encounter Reason: Follow up, Diagnostic Procedure Results - Diagnostic tests include other (dexa bone scan ). Date: (03-26-09 ). Follow up visit with no current symptoms. Past medical history includes hypertension and oth End: 29-Apr-2009 10:15 er (leukopenia, circumscribed scleroderma, osteopenia, hypothyroidism ). Encounter Diagnosis: Osteoporosis (733.00), Osteopenia (733.90) [facility] Office Visit On: 17-Mar-2009 8:50 Encounter Reason: Follow up acute care visit - The patient feeling better since last seen. Patient has been compliant with instructions. Current medication use: no side effects and compliant with dosing regimen. Patient End: 17-Mar-2009 12:25 sleeps 9 hours per night. Nutrition: balanced diet. The medical issues the patient is following up for include other (cerumen impaction). Encounter Diagnosis: Cerumen impaction (380.4), Cellulitis and abscess of other specified sites (682.8), Actinic keratosis (702.0), Rash (782.1) [facility] Office Visit On: 12-Mar-2009 9:23 Encounter Reason: Well Women Exam - The patient feels well with no complaints ,has good energy level and is sleeping well. Pap smear: date of last pap: (2005). Contraceptive history: The patient is not using any method o End: 12-Mar-2009 9:37 f contraception at this time. Patient exercises 3 - 4 times per week. The patient's libido is absent. The patient reports that she performs monthly self breast exam. Calcium intake includes 1500 mg with Vit D daily supplement. The patient has been using hormone replacement therapy. Encounter Diagnosis: Well Woman Exam , Medicare (V76.2), Hypothyroidism (244.9), Leukopenia (288.0), Osteopenia (733.90) [facility] Office Visit On: 10-Mar-2009 10:10 Encounter Diagnosis: Cerumen impaction (380.4) End: 10-Mar-2009 12:49 [facility] Office Visit On: 06-Mar-2009 11:33 Encounter Reason: Rash - The onset of the rash has been gradual and has been occurring in a persistent pattern for months. The course has been constant. The rash is characterized as red and flat. The rash was first seen End: 06-Mar-2009 12:28 on the upper extremity (left elbow) and the lower extremity (right knee). There has been no progression. There has been no associated itching or pain. Encounter Diagnosis: Rash (782.1) [facility] Office Visit On: 05-Mar-2009 9:07 Encounter Diagnosis: Cerumen impaction (380.4) End: 05-Mar-2009 9:44 [facility] Office Visit On: 04-Mar-2009 8:52 Encounter Reason: Rash - The onset of the rash has been gradual and has been occurring in a persistent pattern for months. The course has been constant. The rash is characterized as red and flat. The rash was first seen End: 04-Mar-2009 9:17 on the upper extremity (left elbow) and the lower extremity (right knee). There has been no progression. There has been no associated itching or pain. Encounter Diagnosis: Rash (782.1), Cerumen impaction (380.4) [facility] Historical Summary On: 27-Nov-2008 12:47 [facility] End: 27-Nov-2008 12:47 Office Visit On: 24-Mar-2008 8:07 Encounter Reason: Follow up for chronic medical issues - The patient feels well with no complaints ,has good energy level and is sleeping well. Patient has been compliant with instructions. Current medication use: no barb End: 25-Mar-2008 21:56 e effects ,compliant with dosing regimen and considered effective by patient. Patient sleeps 8 hours per night. Impact of disease: no overall impact. Nutrition: balanced diet and supplemental vitamins. The medical issues the patient is following up for include hypothyroid ,osteoporosis/osteopenia and other (leukopenia ). Encounter Diagnosis: Leukopenia (288.0), Other lichen, not elsewhere classified (697.8), Hypothyroidism (244.9), Osteopenia (733.90), Well Woman Exam , Medicare (V76.2) [facility] Office Visit On: 13-Feb-2007 9:10 Encounter Reason: Well Women Exam - The patient feels well with no complaints ,has good energy level and is sleeping well. Pap smear: date of last pap: (2004). Contraceptive history: The patient is not using any method o End: 13-Feb-2007 9:45 f contraception at this time. Patient exercises 3 - 4 times per week. The patient's libido is normal. The patient reports that she performs monthly self breast exam. Calcium intake includes 1200 mg with Vit D daily supplement. Note for Well Women Exam: menopausal Encounter Diagnosis: Hypothyroidism (244.9), Osteopenia (733.90), Leukopenia (288.0), Well Woman Exam , Medicare (V76.2), Other lichen, not elsewhere classified (697.8) [facility] Historical Summary On: 09-Feb-2007 14:17 [facility] End: 09-Feb-2007 14:27 Office Visit On: 08-Dec-2006 12:40 [facility] End: 08-Dec-2006 13:15 Payers MedicareRadha BRENNAN/Kenan Cota; jae guarantor
--- OUTSIDE RECORDS SUMMARY | 2018-11-13 00:35 | XMS RPT_ITS ---
:1940 Author Organization OHIP Care Team Providers Name Role Phone Kristie Meadows Attending Unavailable Olive OCASIO, Yuli Trivedi Referring Unavailable Ciesa, Kristie Consulting Unavailable Ciesa, Kristie Attending Unavailable Ciesa, Kristie Referring Unavailable Fuada, Kristie Primary Care Unavailable Dori, Kristie Attending Unavailable Ciesa, Kristie Referring Unavailable Ciesa, Kristie Primary Care Unavailable Ciesa, Kristie Attending Unavailable Ciesa, Kristie Primary Care Unavailable Ciesa, Kristie Referring Unavailable Ciesa, Kristie Attending Unavailable Ciesa, Kristie Referring Unavailable Ciesa, Kristie Primary Care Unavailable Ciesa, Kristie Attending Unavailable Ciesa, Kristie Referring Unavailable Ciesa, Kristie Primary Care Unavailable Purpose Purpose PROBLEMS PROBLEMS DATE TYPE CONDITION / CODE ATTENDING STATUS SOURCE 07/24/2018 Unknown E03.9 - CiesaKristie Active [place] Hypothyroidism, Community unspecified / Hospital E03.9(ICD-10) Repository 07/24/2018 Unknown D70.9 - Ciesa, Kristie Active [place] Neutropenia, Community unspecified / Hospital D70.9(ICD-10) Repository 07/24/2018 Unknown R35.1 - Nocturia / Ciesa, Kristie Active [place] R35.1(ICD-10) [facility] Repository 07/17/2018 Unknown D72.819 - Kristie Meadows Decreased white Community blood cell count, Hospital unspecified / Repository D72.819(ICD-10) 07/17/2018 Unknown I10 - Essential Kristie Meadows (primary) [facility] hypertension / Hospital I10(ICD-10) Repository 04/11/2018 Unknown Z12.31 - Encounter Kristie Meadows for screening [facility] mammogram for Hospital malignant neoplasm Repository of breast / Z12.31(ICD-10) PROCEDURES PROCEDURES No Procedure Records FoundVITAL SIGNS VITAL SIGNS No Vital Signs Records FoundRESULTS RESULTS COMPREHENSIVE METABOLIC Collected: 09/27/2018 Status: F Source: FENG PROFIL 7:26 AM [facility] CODE TESTS RESULT OUT OF RANGE REFERENCE UNITS LAB L501.0100 74-106 mg/dL Normal GLU 78 Result Comment: Please note revised GLUCOSE reference range effective 2017. LAB L501.1000 7-18 mg/dL Normal BUN 12 LAB L501.1100 0.55-1.02 mg/dL Normal CREAT,SERUM 0.67 Result Comment: The validity of the calculated GFR AND GFRAA in patients over 70 years has not been determined. Clinical correlation is essential. LAB L501.1110 >60 mL/min Normal EST GFR 91 Result Comment: Non- GFR Calc LAB L501.1115 >60 mL/min Normal EST GFR - AA 110 Result Comment: GFR Calc LAB L501.1300 10-20 RATIO Normal BUN/CRE 18.0 LAB L501.1500 6.4-8.2 g/dL T Normal PROT 7.0 LAB L501.1800 3.2-5.0 g/dL Normal ALB 3.8 LAB L501.1950 2.2-4.2 g/dL Normal GLOB 3.2 LAB L501.2000 0.9-2.4 RATIO Normal A/G 1.2 LAB L501.2200 8.5-10.1 mg/dL CA Normal 9.0 LAB L501.4100 15-37 U/L Normal AST 25 LAB L501.4305 45-117 U/L Normal ALK P 83 LAB L501.4405 13-56 U/L Normal ALT 27 LAB L501.4600 0.20-1.00 mg/dL T Normal BILI 0.80 LAB L501.5300 136-145 mmol/L NA Normal 138 LAB L501.5600 3.5-5.1 mmol/L K Normal 4.0 LAB L501.5900 98-107 mmol/L CL Normal 103 LAB L501.6100 21.0-32.0 mmol/L Normal CO2 29.0 LAB L501.6200 5-15 Normal GAP 6 Performed By: #### L500.4050 #### Laboratory [address] [place], [address] CBC W/DIFF, AUTOMATED Collected: 09/27/2018 Status: F Source: AR[place]OLES 7:26 AM [facility] TYPE CODE TESTS RESULT OUT OF RANGE REFERENCE UNITS LAB L100.1000 4.4-11.0 K/mm3 Low WBC 3.4 LAB L100.1200 4.2-5.4 M/mm3 Low RBC 4.19 LAB L100.1300 12.0-15.0 g/dl Normal HGB 13.5 LAB L100.1400 37-47 % Normal HCT 39.0 LAB L100.1500 81-99 fL Normal MCV 93.1 LAB L100.1600 27.0-32.0 pg High MCH 32.2 LAB L100.1700 32-36 g/gl Normal MCHC 34.6 LAB L100.1810 11.6-14.6 % Normal RDW CV 12.2 LAB L100.1820 35.1-43.9 fl Normal RDW SD 41.5 LAB L100.1900 150-450 K/mm3 Normal PLT 254 LAB L100.2000 6.2-12.0 fl Normal MPV 9.9 LAB L100.2100 47-70 % Low NEUT% 43.9 LAB L100.2200 19-41 % Normal LY% 32.5 LAB L100.2300 0-10 % High MONO% 14.0 LAB L100.2400 0-5 % High EO% 7.5 LAB L100.2500 0-1 % High BASO% 2.1 LAB L100.2550 0.0-0.9 % Normal IM GRAN % 0.000 Result Comment: IG% - Immature Granulocytes (promyelocytes, myelocytes and metamyelocytes) > 1% indicates that a LEFT SHIFT is Present. LAB L100.2620 2.0-7.7 X10 3/uL Low Absolute Neut 1.5 LAB L100.2720 0.83-4.51 X10 3/ul Normal Absolute Lymph 1.09 Performed By: #### L100.0100 #### Laboratory [address] [place], [address] CBC-COMPLETE BLOOD CNT Collected: 07/24/2018 Status: F Source: FENG NO DIFF 10:24 AM [facility] Order Comment: SMEAR INTERPRETATION ROUTINE STAIN TYPE CODE TESTS RESULT OUT OF RANGE REFERENCE UNITS LAB L100.1000 4.4-11.0 K/mm3 Low WBC 3.5 LAB L100.1200 4.2-5.4 M/mm3 Low RBC 3.76 LAB L100.1300 12.0-15.0 g/dl Normal HGB 12.3 LAB L100.1400 37-47 % Low HCT 34.9 LAB L100.1500 81-99 fL Normal MCV 92.8 LAB L100.1600 27.0-32.0 pg High MCH 32.7 LAB L100.1700 32-36 g/gl Normal MCHC 35.2 LAB L100.1810 11.6-14.6 % Normal RDW CV 12.3 LAB L100.1820 35.1-43.9 fl Normal RDW SD 40.8 LAB L100.1900 150-450 K/mm3 Normal PLT 259 LAB L100.2000 6.2-12.0 fl Normal MPV 10.4 Performed By: #### L100.0500 #### Laboratory [address] [facility] [place], [address] LIVER PROFILE Collected: 07/24/2018 Status: F Source: FENG 10:24 AM [facility] [place] TYPE CODE TESTS RESULT OUT OF RANGE REFERENCE UNITS LAB L501.1500 6.4-8.2 g/dL Normal T PROT 6.7 LAB L501.1800 3.2-5.0 g/dL Normal ALB 3.5 LAB L501.1950 2.2-4.2 g/dL Normal GLOB 3.2 LAB L501.4100 15-37 U/L Normal AST 27 LAB L501.4305 45-117 U/L Normal ALK P 78 LAB L501.4405 13-56 U/L Normal ALT 29 LAB L501.4600 0.20-1.00 mg/dL Normal T BILI 0.90 LAB L501.4700 0.00-0.30 mg/dL Normal D BILI 0.23 Performed By: #### L500.3400, L501.9520 #### Laboratory [address] [place], [address] THYROID STIM HORMONE Collected: 07/24/2018 Status: F Source: FENG (TSH) 10:24 AM [facility] [place] TYPE CODE TESTS RESULT OUT OF RANGE REFERENCE UNITS LAB L501.9520 0.358-3.74 uIU/mL Normal TSH 2.22 Performed By: #### L500.3400, L501.9520 #### Laboratory [address] [facility] [place], [address] Observed: 07/24/2018 Status: F Source: FENG CULTURE, URINE 10:24 AM [facility] [place] Urine Culture ORGANISM 1: Mixed Gram Positive Organisms [place] Count 1000-10,000 MIX CULTURE Mixed contaminants. Submit a new specimen if indicated. Performed By: #### M100.0650 #### Laboratory [address] [facility] [place], [address] CBC W/DIFF, AUTOMATED Collected: 07/17/2018 Status: F Source: FENG 7:22 AM [facility] [place] TYPE CODE TESTS RESULT OUT OF RANGE REFERENCE UNITS LAB L100.1000 4.4-11.0 K/mm3 Low WBC 3.2 LAB L100.1200 4.2-5.4 M/mm3 Low RBC 3.98 LAB L100.1300 12.0-15.0 g/dl Normal HGB 12.8 LAB L100.1400 37-47 % Low HCT 36.6 LAB L100.1500 81-99 fL Normal MCV 92.0 LAB L100.1600 27.0-32.0 pg High MCH 32.2 LAB L100.1700 32-36 g/gl Normal MCHC 35.0 LAB L100.1810 11.6-14.6 % Normal RDW CV 12.3 LAB L100.1820 35.1-43.9 fl Normal RDW SD 40.5 LAB L100.1900 150-450 K/mm3 Normal PLT 237 LAB L100.2000 6.2-12.0 fl Normal MPV 10.0 LAB L100.2100 47-70 % Low NEUT% 40.7 LAB L100.2200 19-41 % Normal LY% 34.3 LAB L100.2300 0-10 % High MONO% 17.0 LAB L100.2400 0-5 % High EO% 6.2 LAB L100.2500 0-1 % High BASO% 1.5 LAB L100.2550 0.0-0.9 % Normal IM GRAN % 0.300 Result Comment: IG% - Immature Granulocytes (promyelocytes, myelocytes and metamyelocytes) > 1% indicates that a LEFT SHIFT is Present. LAB L100.2620 2.0-7.7 X10 3/uL Low Absolute Neut 1.3 LAB L100.2720 0.83-4.51 X10 3/ul Normal Absolute Lymph 1.11 Performed By: #### L100.0100 #### Laboratory [address] [place] [address], [address] MICROALB:CREAT Collected: 07/17/2018 Status: F Source: FENG RATIO,RANDOM UR 7:22 AM [facility] [place] TYPE CODE TESTS RESULT OUT OF RANGE REFERENCE UNITS LAB L501.1200 NO RANGE EST. mg/dL Normal UR CREAT 47.40 LAB L502.0500 NO RANGE EST. mg/L Normal 12.4 MICROALBUMIN ,UR LAB L502.0600 <30 mg/g CRE mg/g CRE Normal 26.2 MALB:CREAT Performed By: #### L502.0250 #### Laboratory [address] [place], [address] THYROID STIM HORMONE Collected: 07/17/2018 Status: F Source: FENG (TSH) 7:22 AM [facility] [place] TYPE CODE TESTS RESULT OUT OF RANGE REFERENCE UNITS LAB L501.9520 0.358-3.74 uIU/mL Normal TSH 3.50 Performed By: #### L501.9520 #### Laboratory [address] [place], [address] DOWNTIME REPORT Observed: 04/05/2018 Status: F Source: FENG 12:08 PM [facility] Medical Records Department [address] [place] [address] Downtime Report MR#: [id number] Acct: [id number] Name: CHINMAY COTA Rep #: [id number] : 1940 77 From: Jim Her PCP: Kristie Meadows NP Status: REG CLI This patient was seen during an EMR downtime March 19, 2018 - March 26, 2018. This patient may have a combination of paper and electronic documentation or all paper documentation. All documentation is viewable within the e-chart portion of [facility] for each patient visit. SCREENING MAMM (CAD), Observed: 03/23/2018 Status: F Source: FENG BILAT 9:24 AM [facility] Imaging Services [address] [place] [address] SCREENING MAMM (CAD), BILAT MR#: [id number] Acct: [id number] Name: CHINMAY COTA Rep #: [id number] : 1940 F 77 From: Aixa Weeks MD PCP: Kristie Meadows NP Status: REG CLI Study: SCREENING MAMM (CAD), BILAT Date of Exam: 03/19/18 Exam# [id number] Ordering Dr: Kristie Meadows MAMMOGRAPHY - BILATERAL SCREENING REASON FOR EXAM: Female, 77 years old. Routine annual screening examination. PERTINENT HISTORY: Non-contributory. TECHNIQUE: Digital bilateral breast som (3D mammographic acquisition) in the CC and MLO projections. 2-D mediolateral oblique (MLO) and craniocaudad (CC) views of both breasts were obtained. CAD: Full Field Digital Mammography with Computer Added Detection was performed. COMPARISON: 03/15/2017 and 02/01/2012 FINDINGS: Breast Composition: The breasts are heterogeneously dense, which may obscure small masses. There are no dominant masses or suspicious calcifications. No other significant abnormalities are identified. BI/SCREENING MAMM (CAD), BILAT IMPRESSION: Stable bilateral screening mammogram. Yearly follow-up mammogram recommended. (A) ASSESSMENT CATEGORY: BIRADS Category 2: Benign. A letter regarding these results will be sent to the patient by the facility within 30 days. Approximately 10% of breast cancers are not detected by mammography. A normal mammogram should not delay biopsy of a clinically suspicious abnormality. [id number] Electronically Signed: Aixa Weeks MD at 13:15 EDT Tel , Service support , CC: Kristie Meadows NP Toll Mechanic: Signed CBC W/DIFF, AUTOMATED Collected: 03/02/2018 Status: F Source: FENG 7:26 AM [facility] [place] TYPE CODE TESTS RESULT OUT OF RANGE REFERENCE UNITS LAB L100.1000 4.4-11.0 K/mm3 Low WBC 3.5 LAB L100.1200 4.2-5.4 M/mm3 Normal RBC 4.31 LAB L100.1300 12.0-15.0 g/dl Normal HGB 13.6 LAB L100.1400 37-47 % Normal HCT 39.3 LAB L100.1500 81-99 fL Normal MCV 91.2 LAB L100.1600 27.0-32.0 pg Normal MCH 31.6 LAB L100.1700 32-36 g/gl Normal MCHC 34.6 LAB L100.1810 11.6-14.6 % Normal RDW CV 12.4 LAB L100.1820 35.1-43.9 fl Normal RDW SD 41.3 LAB L100.1900 150-450 K/mm3 Normal PLT 247 LAB L100.2000 6.2-12.0 fl Normal MPV 10.1 LAB L100.2100 47-70 % Normal NEUT% 48.9 LAB L100.2200 19-41 % Normal LY% 33.3 LAB L100.2300 0-10 % High MONO% 13.0 LAB L100.2400 0-5 % Normal EO% 3.4 LAB L100.2500 0-1 % High BASO% 1.1 LAB L100.2550 0.0-0.9 % Normal IM GRAN % 0.300 Result Comment: IG% - Immature Granulocytes (promyelocytes, myelocytes and metamyelocytes) > 1% indicates that a LEFT SHIFT is Present. LAB L100.2620 2.0-7.7 X10 3/uL Low Absolute Neut 1.7 LAB L100.2720 0.83-4.51 X10 3/ul Normal Absolute Lymph 1.18 Performed By: #### L100.0100 #### Laboratory [address] [place], [address] VITAMIN B12 Collected: 03/02/2018 Status: F Source: ARBOLES 7:26 AM [facility] [place] TYPE CODE TESTS RESULT OUT OF REFERENCE UNITS RANGE LAB L503.0105 211-911 pg/mL High Vitamin B12 1417 Performed By: #### L503.0105 #### Laboratory [address] [facility] [place], [address] COMPREHENSIVE METABOLIC Collected: 03/02/2018 Status: F Source: [facility] 7:26 AM [facility] Order Comment: Is Patient Taking Vitamins or Folic Acid Supplements? N TYPE CODE TESTS RESULT OUT OF RANGE REFERENCE UNITS LAB L501.0100 74-106 mg/dL Normal GLU 75 Result Comment: Please note revised GLUCOSE reference range effective 2017. LAB L501.1000 7-18 mg/dL Normal BUN 13 LAB L501.1100 0.55-1.02 mg/dL Normal CREAT,SERUM 0.73 Result Comment: The validity of the calculated GFR AND GFRAA in patients over 70 years has not been determined. Clinical correlation is essential. LAB L501.1110 >60 mL/min Normal EST GFR 81 Result Comment: Non- GFR Calc LAB L501.1115 >60 mL/min Normal EST GFR - AA 98 Result Comment: GFR Calc LAB L501.1300 10-20 RATIO Normal BUN/CRE 17.7 LAB L501.1500 6.4-8.2 g/dL T Normal PROT 7.0 LAB L501.1800 3.2-5.0 g/dL Normal ALB 3.8 LAB L501.1950 2.2-4.2 g/dL Normal GLOB 3.2 LAB L501.2000 0.9-2.4 RATIO Normal A/G 1.2 LAB L501.2200 8.5-10.1 mg/dL CA Normal 8.6 LAB L501.4100 15-37 U/L Normal AST 26 LAB L501.4305 45-117 U/L Normal ALK P 85 LAB L501.4405 13-56 U/L Normal ALT 26 LAB L501.4600 0.20-1.00 mg/dL T Normal BILI 1.00 LAB L501.5300 136-145 mmol/L NA Normal 136 LAB L501.5600 3.5-5.1 mmol/L K Normal 4.1 LAB L501.5900 98-107 mmol/L CL Normal 101 LAB L501.6100 21.0-32.0 mmol/L Normal CO2 29.0 LAB L501.6200 5-15 Normal GAP 6 Performed By: #### L500.4050, L501.9520, L506.0250 #### Laboratory [address], [place], [id number] THYROID STIM HORMONE Collected: 03/02/2018 Status: F Source: FENG (TSH) 7:26 AM [facility] [place] Order Comment: Is Patient Taking Vitamins or Folic Acid Supplements? N TYPE CODE TESTS RESULT OUT OF RANGE REFERENCE UNITS LAB L501.9520 0.358-3.74 uIU/mL Normal TSH 2.14 Performed By: #### L500.4050, L501.9520, L506.0250 #### Laboratory [address], [place], [id number] FOLATES, (FOLIC ACID) Collected: 03/02/2018 Status: F Source: FENG 7:26 AM [facility] Order Comment: Is Patient Taking Vitamins or Folic Acid Supplements? N TYPE CODE TESTS RESULT OUT OF RANGE REFERENCE UNITS LAB L506.0250 3.1-55.4 ng/mL Normal FOLATES 42.90 Performed By: #### L500.4050, L501.9520, L506.0250 #### Laboratory [address] [place], [address] ANTINUCLEAR ANTIBODIES Collected: 03/02/2018 Status: F Source: FENG DIRECT 7:26 AM [facility] TYPE CODE TESTS RESULT OUT OF RANGE REFERENCE UNITS LAB L3100.5475 Negative Normal Negative HOLA-DIRECT Result Comment: Performed at: - [facility] [address] [id number] [employer] Laborer: Lul Hassan PhD, Phone: [phone] Performed By: #### L3100.5475 #### [facility] (refer to report for specific site) refer to report for address and phone number ALLERGIES ALLERGIES No Allergies Records FoundENCOUNTERS ENCOUNTERS ADMIT/DISCHARGE ACCOUNT ADMITTING ENCOUNTER LOCATION SOURCE NUMBER CLASS 10/24/2018 [id number] Ambulatory Building:[facility] [place] Practices Repository 09/27/2018 [id number] [facility] ing:MTLAB Repository 07/24/2018 [id number] [facility] ing:MTLAB Repository 07/17/2018 [id number] Ambulatory [place] Feng 8 [facility] ing:MTLAB Repository 03/19/2018 [id number] Ambulatory [facility] 1 [facility] ing:OPBI Repository 03/02/2018 [id number] Ambulatory [place] 4 [facility] ing:MTLAB Repository FUNCTIONAL STATUS FUNCTIONAL STATUS No Functional Status Records FoundEQUIPMENT EQUIPMENT No Equipment Records FoundPAYERS PAYERS ENCOUNTER GUARANTOR PAYER SUBSCRIBER SOURCE 10/24/2018 Chinmay Mot[place] Practices [place]OB: Insurance:MedicarePol [place]DOB: Repository icy Number: [id number] Gallego [id number] SAKSHI Pollack Date:Plan Name:PHARMACY SERVICES REPRESENTATIVESAKSHI Acosta [address]Fpt: (040) [address], [address]: [place] [address]SA: () () [phone] () 10/24/2018 Secondary Chinmay A OHIP Practices Insurance:[place] Hat[place]DOB: Repository /[facility] Number: [id number] Galleg[place] Date:2956-83-65Ghfy DrHernandeztessaCASH, [place] Name:[address] [address]Htd: [phone], [place] [phone] () [id number]: 09/27/2018 CHINMAY A [id number] Primary CHINMAY A Feng [place] Insurance:MEDICARE [place]DOB: [place], [place] PART A olic [id number] Hospital [address]Tac: (959) Number: Repository [phone] () [id number] Date:2018-09-27 09/27/2018 Secondary CHINMAY A [place] Insurance:ANTHEMPolic HATTONDOB: Community y Number: [id number] [id number] Repository Date:[id number] [place] [address]DP: 09/27/2018 Tertiary NOT GIVENUNK Feng Insurance:SELF PAY [facility] Hospital Number: Effective Repository Date:2018-09-27 07/24/2018 Chinmay A [id number] Primary Chinmay A [place] Insurance:MEDICARE [place]DOB: [place], [place] PART A olic [id number] [address]Atl: (274) Number: Repository [phone] () [id number] Date:2018-07-24 07/24/2018 Secondary Chinmay A [place] Insurance:ANTHEMPolic [place]DOB: Community y Number: [id number] Hospital [id number] Repository Date:[id number], [place] [address]BS: 07/24/2018 Tertiary NOT GIVENUNK Feng Insurance:SELF PAY [facility] Number: Effective Repository Date:2018-07-24 07/17/2018 Chinmay A [id number] Primary Chinmay A [place] Gallego Insurance:MEDICARE [place]DOB: [facility] [place] PART A [facility] [id number] Hospital [address]Nef: (330) Number: Repository [phone] () [id number] Date:2018-07-17 07/17/2018 Secondary Chinmay A [place] Insurance:ANTHEMPolic [place]DOB: Community y Number: [id number] [id number] Repository Date:[id number], [place] [address]MX: 07/17/2018 Tertiary NOT GIVENUNK Feng Insurance:SELF PAY [facility] Number: Effective Repository Date:2018-07-17 03/19/2018 Chinmay A [id number] Primary Chinmay A [place] Gallego Insurance:MEDICARE [place]DOB: [facility] PART A [facility] [id number] Hospital [address]Kiz: (330) Number: Repository [phone] () [id number] Date:2018-02-21 03/19/2018 Secondary Chinmay A [place] Insurance:ANTHEMPolic [place]DOB: Community y Number: [id number] [id number] Repository Date:8590-96-49[address], [place] [address]HS: 03/19/2018 Tertiary NOT GIVENUNK [place] Insurance:SELF PAY [facility] Number: Effective Repository Date:2018-02-21 03/02/2018 Chinmay A [id number] Primary Chinmay A Feng Gallego Insurance:MEDICARE Hat[place]DOB: [facility] PART A [facility] [id number] [facility] [address]Aop: (330) Number: Repository [phone] () [id number] Date:2018-03-02 03/02/2018 Secondary Chinmay A Feng Insurance:ANTHEMPolic [place]DOB: Community y Number: [id number] Hospital [id number] Repository Date:[id number], [place] [address]GA: 03/02/2018 Tertiary NOT GIVENUNK [place] Insurance:SELF PAY [facility] Number: Effective Repository Date:2018-03-02 SOCIAL HISTORY SOCIAL HISTORY No Social History Records FoundFAMILY HISTORY FAMILY HISTORY No Family History Records FoundADVANCE DIRECTIVES ADVANCE DIRECTIVES No Advanced Directives Records FoundINFORMATION SOURCE INFORMATION SOURCE DATE CREATED AUTHOR AUTHOR'S ORGANIZATION 11/07/2018 OHIP
== END ==
PROVIDERS: Family Provider Nurse Practitioner; PCP Nurse Practitioner; Referring Provider Nurse Practitioner; Visit Provider Nurse Practitioner
DX: I10 Essential (primary) hypertension (principal)
CPT/HCPCS: 36415; 80053; 85025

== ENCOUNTER → 2019-02-27 | Outpatient (CLI) | payer MEDICARE, BC, SELFPAY ==
[2019-02-27 12:16] LABS: Absolute Lymphocyte Count 0.86 X10^3/ul (0.83-4.51); Absolute Neutrophil Count 2.3 X10^3/uL (2.0-7.7); Basophil# 0.06 X10^3/uL; Basophil% 1.5 % (0-1); Eosinophil# 0.07 X10^3/uL; Eosinophils% 1.8 % (0-5); Hemoglobin 12.8 g/dl (12.0-15.0); Lymphocyte # 0.86 X10^3/ul (4.0); Lymphocyte % 21.9 % (19-41); Mean Corp Hgb Conc 35.6 g/gl (32-36); Mean Corpuscular Hgb 32.5 pg (27.0-32.0); Mean Corpuscular Volume 91.4 fL (81-99); Mean Platelet Vol. 10.2 fl (6.2-12.0); Monocyte# 0.63 X10^3/uL; Monocyte% 16.1 % (0-10); Neutrophil # 2.29 X10^3/uL (2.7-7.7); Neutrophil % 58.4 % (47-70); Platelet Count 241 K/mm3 (150-450); RBC Distribution Width CV 11.6 % (11.6-14.6); RBC Distribution Width SD 38.1 fl (35.1-43.9); Red Blood Count 3.94 M/mm3 (4.2-5.4); White Blood Count 3.9 K/mm3 (4.4-11.0)
[2019-02-27 12:20] LABS: Partial Thromboplast Time 30.6 Seconds (24.1-36.2)
[2019-02-27 12:21] LABS: POSITIVE COUNT NO; POSITIVE DIFFERENTIAL NO; POSITIVE MORPHOLOGY NO
[2019-02-27 12:32] LABS: Vitamin B12 1799 pg/mL (211-911); Vitamin D,25 Hydroxy 54.6 ng/mL (29.95-100.01)
[2019-02-27 12:34] LABS: ALB/GLOB Ratio 1.2 RATIO (0.9-2.4); AST(SGOT) 26 U/L (15-37); Alanine Aminotransfer ALT/SGPT 25 U/L (13-56); Albumin, Serum 3.7 g/dL (3.2-5.0); Alkaline Phosphatase 85 U/L (45-117); Anion Gap 4 (5-15); BUN 11 mg/dL (7-18); BUN/Creat Ratio 17.4 RATIO (10-20); Calcium,Total 8.5 mg/dL (8.5-10.1); Chloride 100 mmol/L (98-107); Creatinine, Serum 0.63 mg/dL (0.55-1.02); EST Glomerular Filtration Rate 96 mL/min (>60); Est Glom Filt Rate - Afr Amer 116 mL/min (>60); Globulin 3.1 g/dL (2.2-4.2); Glucose 71 mg/dL (74-106); Potassium 4.3 mmol/L (3.5-5.1); Protein, Total 6.8 g/dL (6.4-8.2); Sodium Level 132 mmol/L (136-145); Thyroid Stim Hormone (TSH) 4.87 uIU/mL (0.358-3.74)
[2019-02-27 16:10] LABS: Folates, (Folic Acid) > 100.00 ng/mL (3.1-55.4)
[2019-03-01 10:02] LABS: ANTINUCLEAR ANTIBODIES DIRECT Positive (Negative)
== END | disposition home or self-care (01) ==
LOC: MTLAB 10:02
PROVIDERS: Family Provider Nurse Practitioner; PCP Nurse Practitioner; Referring Provider Nurse Practitioner; Visit Provider Nurse Practitioner
DX: Z01.818 Encounter for other preprocedural examination (principal); E03.9 Hypothyroidism, unspecified; D72.819 Decreased white blood cell count, unspecified; E55.9 Vitamin D deficiency, unspecified
CPT/HCPCS: 36415; 80053; 82306; 82607; 82746; 84443; 85025; 85610; 85730; 86038; 87086; 87088

== ENCOUNTER → 2019-04-03 | Outpatient (CLI) | payer MEDICARE, BC, SELFPAY ==
[2019-04-03 13:14] LABS: Thyroid Stim Hormone (TSH) 4.39 uIU/mL (0.358-3.74)
== END | disposition home or self-care (01) ==
LOC: MTLAB 08:43
PROVIDERS: Family Provider Nurse Practitioner; PCP Nurse Practitioner; Referring Provider Nurse Practitioner; Visit Provider Nurse Practitioner
DX: E03.9 Hypothyroidism, unspecified (principal)
CPT/HCPCS: 36415; 84443

== ENCOUNTER → 2019-04-09 | Outpatient (CLI) | payer MEDICARE, BC, SELFPAY ==
--- NOTE | 2019-04-09 14:17 | BI_ITS ---
MAMMOGRAPHY - BILATERAL SCREENING 3-D TOMOSYNTHESIS REASON FOR EXAM: Female, 78 years old. Bilateral Screening 3-D tomosynthesis PERTINENT HISTORY: No significant family history. TECHNIQUE: 2-D mammograms and 3-D Tomosynthesis of the breast (s) were performed. CAD was performed. COMPARISON: March 19, 2018, March 15, 2017 FINDINGS: The breast composition is heterogeneously dense that can obscure small breast masses. Scattered benign calcifications are seen. No dense spiculated masses or suspicious microcalcifications are identified. No architectural distortion is identified. There is no skin thickening or retraction. There has been no significant change since the prior study. BI/SCREEN MAMM (CAD) W/LONA BILAT IMPRESSION: No mammographic signs of malignancy. Routine yearly mammograms recommended. ASSESSMENT CATEGORY: BIRADS Category 2: Benign. A letter regarding these results will be sent to the patient by the facility within 30 days. FOLLOW UP RECOMMENDATION: Yearly follow up mammogram recommended. (A) Approximately 10% of breast cancers are not detected by mammography. A normal mammogram should not delay biopsy of a clinically suspicious abnormality. Electronically Signed: Adal Savage MD at 17:46 EDT , Service support ,
--- NOTE | 2019-04-09 14:25 | BD_ITS ---
STUDY: DUAL ENERGY X-RAY ABSORPTIOMETRY / DXA REASON FOR EXAM: Female, 78 years old. The patient is postmenopausal. Loss of height. TECHNIQUE: Bone Mineral Density (BMD) measurements of lumbar spine and bilateral hips were obtained. COMPARISON: Comparison is made with prior study dated March 15, 2017. FINDINGS: Lumbar Spine (L1-L4): g/cm2 (0.748) / T-score (-3.5) / Z-score (-1.6) Findings are suggestive of osteoporosis with a high fracture risk. Left Femur Total: g/cm2 (0.565) / T-score (-3.5) / Z-score (-1.5) Left Femoral Neck: g/cm2 (0.647) / T-score (-2.8) / Z-score (-0.6) Right Femur Total: g/cm2 (0.523) / T-score (-3.8) / Z-score (-1.8) Right Femoral Neck: g/cm2 (0.632) / T-score (-2.9) / Z-score (-0.7) The T-Scores on the most recent prior examination were: Lumbar Spine (L1-L4): There has been worsening of bone density since the previous examination. Left Femur Total: which represents a worsening of 3.1%. Right Femur Total: which represents a worsening of 6.1%. BD/Dexa Bone Density Study IMPRESSION: The patient is considered osteoporotic as outlined below according to World Diallo Organization (WHO) criteria with a high fracture risk. There has been worsening of bone density since the previous examination. Reference Information: The T-score is the number of standard deviations above or below the standard which is normal for young adults at their peak bone mineral density. The World Health Organization (WHO) interprets the T-scores as follows: Above -1 Normal bone density Between -1 and -2.5 Osteopenia Equal to / or below -2.5 Osteoporosis As a practical clinical guideline, osteopenia may be graded as follows: Mild -1 through -1.5 Moderate -1.6 through -2.0 Severe -2.1 through -2.4 The Z-score is the number of standard deviations above or below age-matched controls. A Z-score of less than -1.5 would be considered abnormal. References: 1. NIH Osteoporosis and Related Bone Diseases http://www.osteo.org 2. International Society for Clinical Densitometry http://www.iscd.org 3. National Osteoporosis Foundation http://www.nof.org Electronically Signed: Per Frye, at 10:54 EDT , Service support ,
== END | disposition home or self-care (01) ==
LOC: OPBD 14:15
PROVIDERS: Family Provider Nurse Practitioner; PCP Nurse Practitioner; Referring Provider Nurse Practitioner; Visit Provider Nurse Practitioner
DX: Z78.0 Asymptomatic menopausal state (principal); Z12.31 Encounter for screening mammogram for malignant neoplasm of breast
CPT/HCPCS: 77063; 77067; 77080

== ENCOUNTER → 2019-05-20 | Outpatient (CLI) | payer MEDICARE, BC, SELFPAY ==
[2019-05-20 10:44] LABS: Thyroid Stim Hormone (TSH) 0.74 uIU/mL (0.358-3.74)
== END | disposition home or self-care (01) ==
LOC: MTLAB 08:41
PROVIDERS: Family Provider Nurse Practitioner; PCP Nurse Practitioner; Referring Provider Nurse Practitioner; Visit Provider Nurse Practitioner
DX: E03.9 Hypothyroidism, unspecified (principal)
CPT/HCPCS: 36415; 84443

== ENCOUNTER → 2019-06-21 | Outpatient (CLI) | payer MEDICARE, BC, SELFPAY ==
--- NOTE | 2019-06-21 10:10 | STEWCON_ITS ---
Reason For Study: Fatigue/HTN Stress Results Protocol: Modified Isreal Protocol Maximum Predicted HR: 139 bpm Target HR: 118 bpm % Maximum Predicted HR: 106 % DurationHeart Rate Stage (mm:ss) (bpm) BP Comment Baseline 88 138/82No Chest Pain; Diluted Definity 3 ML Given Modified Isreal Protocol Stage 0 3:00 130 146/72No Chest Pain Modified Isreal Protocol Stage 1/2 3:00 141 172/68No Chest Pain Modified Isreal Protocol Stage 1 3:00 148 190/70No Chest Pain; Mild to Moderate Dyspnea Recovery 100 130/82No Chest Pain Stress Duration: 9:00 mm:ss Maximum Stress HR: 148 bpm METS: 4 Baseline Echocardiogram Findings The estimated ejection fraction is 65 %. Stress Echo Wall motion Data Resting WM Intermediate WM Stress WM Resting Wall Motion Wall Motion Stress No regional wall motion No regional wall motion abnormalities noted. abnormalities noted. EKG Data The baseline ECG displays normal sinus rhythm. During stress, there were no ST or T wave changes noted to suggest ischemia. No clinical angina was noted. Interpretation Summary The estimated ejection fraction is 65 %. Normal, adequate, modified Isreal treadmill echocardiogram. Negative for ischemia by EKG and echocardiographic criteria. No anginal symptoms noted. Rare PVCs noted. Test terminated due to fatigue. Appropriate blood pressure response to exercise. Below average exercise capacity for age. Decreased sensitivity due to poor echo windows requiring Definity agent. Final LVEF is 75%. No complications. The study was technically difficult. Contrast injection was performed. Ordering Physician: Kristie Meadows Referring Physician: Toni Qureshi Performed By: Kamryn Smith RDCS, RVT
== END | disposition home or self-care (01) ==
LOC: CVS 10:07
PROVIDERS: Family Provider Nurse Practitioner; PCP Nurse Practitioner; Referring Provider Nurse Practitioner; Visit Provider Nurse Practitioner
DX: R94.31 Abnormal electrocardiogram [ECG] [EKG] (principal)
CPT/HCPCS: 93017; 93350; Q9957; A4216; C8928

== ENCOUNTER → 2019-07-03 | Outpatient (CLI) | payer MEDICARE, BC, SELFPAY ==
[2019-07-03 10:16] LABS: Absolute Lymphocyte Count 1.16 X10^3/uL (0.83-4.51); Absolute Neutrophil Count 1.6 X10^3/uL (2.0-7.7); Basophil# 0.05 X10^3/uL; Basophil% 1.4 % (0-1); Eosinophil# 0.14 X10^3/uL; Hemoglobin 13.5 g/dL (12.0-15.0); Lymphocyte # 1.16 X10^3/ul (4.0); Lymphocyte % 33.5 % (19-41); Mean Corp Hgb Conc 33.8 g/dL (32-36); Mean Corpuscular Hgb 31.6 pg (27.0-32.0); Mean Corpuscular Volume 93.7 fL (81-99); Mean Platelet Vol. 10.2 fl (6.2-12.0); Monocyte% 14.5 % (0-10); NRBC Flagged by Analyzer 0 % (0-5); Neutrophil % 46.3 % (47-70); Platelet Count 252 K/mm3 (150-450); RBC Distribution Width CV 12.1 % (11.6-14.6); Red Blood Count 4.27 M/mm3 (4.2-5.4); White Blood Count 3.5 K/mm3 (4.4-11.0)
[2019-07-03 10:44] LABS: ALB/GLOB Ratio 1.1 RATIO (0.9-2.4); AST(SGOT) 24 U/L (15-37); Alanine Aminotransfer ALT/SGPT 26 U/L (13-56); Albumin, Serum 3.7 g/dL (3.2-5.0); Alkaline Phosphatase 86 U/L (45-117); Anion Gap 5 (5-15); BUN 14 mg/dL (7-18); BUN/Creat Ratio 19.3 RATIO (10-20); Calcium,Total 8.8 mg/dL (8.5-10.1); Chloride 102 mmol/L (98-107); Cholesterol 182 mg/dL (200); Creatinine, Serum 0.72 mg/dL (0.55-1.02); EST Glomerular Filtration Rate 82 mL/min (>60); Est Glom Filt Rate - Afr Amer 99 mL/min (>60); Globulin 3.5 g/dL (2.2-4.2); Glucose 80 mg/dL (74-106); High Density Lipoprotein 91 mg/dL; Potassium 4.3 mmol/L (3.5-5.1); Protein, Total 7.2 g/dL (6.4-8.2); Sodium Level 137 mmol/L (136-145); Thyroid Stim Hormone (TSH) 1.36 uIU/mL (0.358-3.74); Triglycerides 42 mg/dL; Very Low Density Lipoprotein 8 mg/dL (5-40)
== END | disposition home or self-care (01) ==
LOC: MTLAB 07:04
PROVIDERS: Family Provider Nurse Practitioner; PCP Nurse Practitioner; Referring Provider Nurse Practitioner; Visit Provider Nurse Practitioner
DX: I10 Essential (primary) hypertension (principal); E03.9 Hypothyroidism, unspecified; E78.5 Hyperlipidemia, unspecified
CPT/HCPCS: 36415; 80053; 80061; 84443; 85025

== ENCOUNTER → 2019-07-11 | Outpatient (CLI) | payer MEDICARE, BC, SELFPAY ==
[2019-07-11 10:32] LABS: Amylase 103 U/L (25-115); Bilirubin, Direct 0.29 mg/dL (0.00-0.30); Lipase 261 U/L (73-393)
== END | disposition home or self-care (01) ==
LOC: LAB.FUTURE 09:04
PROVIDERS: Family Provider Nurse Practitioner; PCP Nurse Practitioner; Referring Provider Nurse Practitioner; Visit Provider Nurse Practitioner
DX: R17 Unspecified jaundice (principal)
CPT/HCPCS: 36415; 82150; 82247; 82248; 83690

== ENCOUNTER → 2020-04-08 | Outpatient (CLI) | payer MEDICARE, BC, SELFPAY ==
[2020-04-08 16:47] LABS: Free T3 2.7 pg/mL (2.18-3.98); T4 Free Direct 1.46 ng/dL (0.76-1.46)
[2020-04-10 06:10] LABS: Thyroid Peroxidase AB 139 IU/mL (0-34)
== END | disposition home or self-care (01) ==
LOC: MTLAB 13:39
PROVIDERS: PCP Nurse Practitioner; Referring Provider Nurse Practitioner; Visit Provider Nurse Practitioner
DX: R79.89 Other specified abnormal findings of blood chemistry (principal)
CPT/HCPCS: 36415; 84439; 84481; 86376

== ENCOUNTER → 2020-04-20 13:56 | Outpatient (CLI) | payer MEDICARE, BC, SELFPAY ==
--- NOTE | 2020-04-20 14:03 | BI_ITS ---
MAMMOGRAPHY - BILATERAL SCREENING REASON FOR EXAM: Female, 79 years old. Routine annual screening examination. PERTINENT HISTORY: Non-contributory. TECHNIQUE: Digital bilateral breast loan (3D mammographic acquisition) in the CC and MLO projections. 2-D mediolateral oblique (MLO) and craniocaudad (CC) views of both breasts were obtained. CAD: Full Field Digital Mammography with Computer Added Detection was performed. COMPARISON: Comparison is made with prior examination dated April 09, 2019 and March 19, 2018. FINDINGS: Breast Composition: The breasts are heterogeneously dense, which may obscure small masses. There are no dominant masses or suspicious calcifications. Stable bilateral secretory calcifications. No other significant abnormalities are identified. There has been no significant change since the prior study. BI/SCREEN MAMM (CAD) W/LOAN BILAT IMPRESSION: Stable bilateral screening mammogram. Yearly follow-up mammogram recommended. (A) ASSESSMENT CATEGORY: BIRADS Category 2: Benign. A letter regarding these results will be sent to the patient by the facility within 30 days. Approximately 10% of breast cancers are not detected by mammography. A normal mammogram should not delay biopsy of a clinically suspicious abnormality. [id number] Electronically Signed: Per Frye, at 14:48 EDT , Service support ,
--- NOTE | 2020-04-20 14:04 | US_ITS ---
STUDY: THYROID ULTRASOUND REASON FOR EXAM: Female, 79 years old. Abnormal TSH TECHNIQUE: Ultrasound evaluation of the thyroid was performed with real-time and static black-scale imaging. COMPARISON: None. FINDINGS: RIGHT LOBE: The right lobe of the thyroid gland measures 3.6 x 1.2 x 1.1 cm. There is a heterogeneous echotexture. There are no demonstrated solid, cystic or complex lesions. LEFT LOBE: The left lobe of the thyroid gland measures 3.1 x 0.7 x 1.0 cm. There is a heterogeneous echotexture. There are no demonstrated solid, cystic or complex lesions. ISTHMUS: The isthmus measures 0.15 cm. The regional lymph nodes are normal. US/Thyroid IMPRESSION: Heterogenous thyroid gland which may reflect a history of thyroiditis. Electronically Signed: Brenna Montero MD at 21:12 EDT Tel , Service support ,
== END ==
PROVIDERS: PCP Nurse Practitioner; Referring Provider Nurse Practitioner; Visit Provider Nurse Practitioner
DX: Z12.31 Encounter for screening mammogram for malignant neoplasm of breast (principal); R79.89 Other specified abnormal findings of blood chemistry
CPT/HCPCS: 76536; 77063; 77067

== ENCOUNTER → 2020-06-02 16:15 | Outpatient (CLI) | payer MEDICARE, BC, SELFPAY ==
[2020-06-02 18:05] LABS: Thyroid Stim Hormone (TSH) 8.82 uIU/mL (0.358-3.74)
== END ==
PROVIDERS: PCP Nurse Practitioner; Referring Provider Nurse Practitioner; Visit Provider Nurse Practitioner
DX: E03.9 Hypothyroidism, unspecified (principal)
CPT/HCPCS: 36415; 84443

== ENCOUNTER → 2020-07-20 09:03 | Outpatient (CLI) | payer MEDICARE, BC, SELFPAY ==
[2020-07-20 10:08] LABS: Free T3 2.4 pg/mL (2.18-3.98); T4 Free Direct 1.22 ng/dL (0.76-1.46)
== END ==
PROVIDERS: PCP Nurse Practitioner; Referring Provider Nurse Practitioner; Visit Provider Nurse Practitioner
DX: R79.89 Other specified abnormal findings of blood chemistry (principal); R94.6 Abnormal results of thyroid function studies
CPT/HCPCS: 36415; 84439; 84443; 84481

== ENCOUNTER 2020-11-13 08:59 | Outpatient (RCR) | payer MEDICARE, BC, SELFPAY | END 2020-11-13 23:59 | LOC: IMMUN 08:59 | PROVIDERS: PCP Nurse Practitioner; Visit Provider Family Medicine | DX: Z23 Encounter for immunization (principal) | CPT/HCPCS: 0011A; 0012A; 91301 ==

== ENCOUNTER → 2020-12-14 16:33 | Outpatient (CLI) | payer MEDICARE, BC, SELFPAY ==
[2020-12-14 17:48] LABS: Absolute Lymphocyte Count 1.25 X10^3/uL (0.83-4.51); Absolute Neutrophil Count 2.8 X10^3/uL (2.0-7.7); Basophil# 0.04 X10^3/uL; Basophil% 0.8 % (0-1); Eosinophil# 0.37 X10^3/uL; Eosinophils% 7.2 % (0-5); Hematocrit 35.9 % (37-47); Hemoglobin 13.2 g/dL (12.0-15.0); Lymphocyte # 1.25 X10^3/ul (4.0); Lymphocyte % 24.5 % (19-41); Mean Corp Hgb Conc 36.8 g/dL (32-36); Mean Corpuscular Hgb 35.5 pg (27.0-32.0); Mean Corpuscular Volume 96.5 fL (81-99); Mean Platelet Vol. 10.2 fl (6.2-12.0); Monocyte# 0.65 X10^3/uL; Monocyte% 12.7 % (0-10); NRBC Flagged by Analyzer 0 % (0-5); Neutrophil # 2.78 X10^3/uL (2.7-7.7); Neutrophil % 54.4 % (47-70); Platelet Count 205 K/mm3 (150-450); RBC Distribution Width CV 12.7 % (11.6-14.6); RBC Distribution Width SD 43.4 fl (35.1-43.9); Red Blood Count 3.72 M/mm3 (4.2-5.4); White Blood Count 5.1 K/mm3 (4.4-11.0)
[2020-12-14 18:10] LABS: AST(SGOT) 29 U/L (15-37); Alanine Aminotransfer ALT/SGPT 28 U/L (13-56); Albumin, Serum 3.7 g/dL (3.2-5.0); Alkaline Phosphatase 86 U/L (45-117); Anion Gap 8 (5-15); BUN 12 mg/dL (7-18); BUN/Creat Ratio 17.8 RATIO (10-20); Calcium,Total 9.2 mg/dL (8.5-10.1); Chloride 99 mmol/L (98-107); Cholesterol 176 mg/dL (200); Creatinine, Serum 0.67 mg/dL (0.55-1.02); EST Glomerular Filtration Rate 89 mL/min (>60); Est Glom Filt Rate - Afr Amer 108 mL/min (>60); Globulin 3.7 g/dL (2.2-4.2); Glucose 94 mg/dL (74-106); High Density Lipoprotein 99 mg/dL; Potassium 3.9 mmol/L (3.5-5.1); Protein, Total 7.4 g/dL (6.4-8.2); Sodium Level 135 mmol/L (136-145); Thyroid Stim Hormone (TSH) 4.84 uIU/mL (0.358-3.74); Triglycerides 44 mg/dL; Very Low Density Lipoprotein 9 mg/dL (5-40)
== END ==
PROVIDERS: PCP Nurse Practitioner; Referring Provider Nurse Practitioner; Visit Provider Nurse Practitioner
DX: D72.819 Decreased white blood cell count, unspecified (principal); E55.9 Vitamin D deficiency, unspecified; E03.9 Hypothyroidism, unspecified; I10 Essential (primary) hypertension
CPT/HCPCS: 36415; 80053; 80061; 82306; 84443; 85025

== ENCOUNTER → 2021-01-26 14:29 | Outpatient (CLI) | payer MEDICARE, BC, SELFPAY ==
[2021-01-26 18:19] LABS: Thyroid Stim Hormone (TSH) 2.53 uIU/mL (0.358-3.74)
== END ==
PROVIDERS: PCP Nurse Practitioner; Referring Provider Nurse Practitioner; Visit Provider Nurse Practitioner
DX: E03.9 Hypothyroidism, unspecified (principal)
CPT/HCPCS: 36415; 84443

== ENCOUNTER → 2021-04-20 07:00 | Outpatient (CLI) | payer MEDICARE, BC, SELFPAY ==
[2021-04-20 10:03] LABS: Absolute Lymphocyte Count 1.61 X10^3/uL (0.83-4.51); Absolute Neutrophil Count 1.9 X10^3/uL (2.0-7.7); Basophil# 0.08 X10^3/uL; Basophil% 1.8 % (0-1); Eosinophil# 0.28 X10^3/uL; Eosinophils% 6.2 % (0-5); Hematocrit 39.8 % (37-47); Hemoglobin 13.7 g/dL (12.0-15.0); Lymphocyte # 1.61 X10^3/ul (0.83-4.51); Lymphocyte % 35.7 % (19-41); Mean Corp Hgb Conc 34.4 g/dL (32-36); Mean Corpuscular Hgb 31.6 pg (27.0-32.0); Mean Corpuscular Volume 91.9 fL (81-99); Mean Platelet Vol. 10.5 fl (6.2-12.0); Monocyte# 0.62 X10^3/uL; Monocyte% 13.7 % (0-10); NRBC Flagged by Analyzer 0 % (0-5); Neutrophil # 1.91 X10^3/uL (2.7-7.7); Neutrophil % 42.4 % (47-70); Platelet Count 261 K/mm3 (150-450); RBC Distribution Width CV 12.1 % (11.6-14.6); Red Blood Count 4.33 M/mm3 (4.2-5.4); White Blood Count 4.5 K/mm3 (4.4-11.0)
[2021-04-20 10:44] LABS: ALB/GLOB Ratio 1.1 RATIO (0.9-2.4); AST(SGOT) 30 U/L (15-37); Alanine Aminotransfer ALT/SGPT 26 U/L (13-56); Albumin, Serum 3.8 g/dL (3.2-5.0); Alkaline Phosphatase 88 U/L (45-117); Anion Gap 4 (5-15); BUN 16 mg/dL (7-18); BUN/Creat Ratio 21.8 RATIO (10-20); Chloride 103 mmol/L (98-107); Creatinine, Serum 0.73 mg/dL (0.55-1.02); EST Glomerular Filtration Rate 81 mL/min (>60); Est Glom Filt Rate - Afr Amer 98 mL/min (>60); Globulin 3.6 g/dL (2.2-4.2); Glucose 81 mg/dL (74-106); Potassium 3.8 mmol/L (3.5-5.1); Protein, Total 7.4 g/dL (6.4-8.2); Sodium Level 136 mmol/L (136-145); Thyroid Stim Hormone (TSH) 4.48 uIU/mL (0.358-3.74)
== END ==
PROVIDERS: PCP Nurse Practitioner; Referring Provider Nurse Practitioner; Visit Provider Nurse Practitioner
DX: I10 Essential (primary) hypertension (principal); E03.9 Hypothyroidism, unspecified
CPT/HCPCS: 36415; 80053; 84443; 85025

== ENCOUNTER → 2021-04-27 08:36 | Outpatient (CLI) | payer MEDICARE, BC, SELFPAY ==
[2020-03-31 10:09] LABS: Absolute Neutrophil Count 1.7 X10^3/uL (2.0-7.7); Basophil# 0.07 X10^3/uL; Basophil% 1.9 % (0-1); Eosinophil# 0.15 X10^3/uL; Eosinophils% 4.1 % (0-5); Hematocrit 39.9 % (37-47); Hemoglobin 13.9 g/dL (12.0-15.0); Lymphocyte % 32.7 % (19-41); Mean Corp Hgb Conc 34.8 g/dL (32-36); Mean Corpuscular Hgb 32.6 pg (27.0-32.0); Mean Corpuscular Volume 93.4 fL (81-99); Mean Platelet Vol. 10.4 fl (6.2-12.0); Monocyte# 0.52 X10^3/uL; Monocyte% 14.2 % (0-10); NRBC Flagged by Analyzer 0 % (0-5); Neutrophil # 1.72 X10^3/uL (2.7-7.7); Neutrophil % 46.8 % (47-70); Platelet Count 250 K/mm3 (150-450); RBC Distribution Width CV 11.9 % (11.6-14.6); RBC Distribution Width SD 40.4 fl (35.1-43.9); Red Blood Count 4.27 M/mm3 (4.2-5.4); White Blood Count 3.7 K/mm3 (4.4-11.0)
[2020-03-31 10:27] LABS: ALB/GLOB Ratio 1.2 RATIO (0.9-2.4); AST(SGOT) 30 U/L (15-37); Alanine Aminotransfer ALT/SGPT 28 U/L (13-56); Albumin, Serum 3.8 g/dL (3.2-5.0); Alkaline Phosphatase 86 U/L (45-117); Anion Gap 3 (5-15); BUN 11 mg/dL (7-18); BUN/Creat Ratio 14.9 RATIO (10-20); Calcium,Total 9.1 mg/dL (8.5-10.1); Chloride 103 mmol/L (98-107); Creatinine, Serum 0.74 mg/dL (0.55-1.02); EST Glomerular Filtration Rate 80 mL/min (>60); Est Glom Filt Rate - Afr Amer 97 mL/min (>60); Globulin 3.3 g/dL (2.2-4.2); Glucose 88 mg/dL (74-106); Potassium 4.3 mmol/L (3.5-5.1); Protein, Total 7.1 g/dL (6.4-8.2); Sodium Level 137 mmol/L (136-145)
--- NOTE | 2021-04-27 08:12 | BI_ITS ---
MAMMOGRAPHY - BILATERAL SCREENING REASON FOR EXAM: Female, 80 years old. Routine annual screening examination. PERTINENT HISTORY: Non-contributory. TECHNIQUE: Digital bilateral breast loan (3D mammographic acquisition) in the CC and MLO projections. 2-D mediolateral oblique (MLO) and craniocaudad (CC) views of both breasts were obtained. CAD: Full Field Digital Mammography with Computer Added Detection was performed. COMPARISON: Comparison is made with prior study dated 04/20/2020 and 04/09/2019. FINDINGS: Breast Composition: The breasts are heterogeneously dense, which may obscure small masses. There are no dominant masses or suspicious calcifications. Stable bilateral secretory calcifications. No other significant abnormalities are identified. There has been no significant change since the prior study. BI/SCRN MAMM (CAD)W/LOAN BILAT IMPRESSION: Stable bilateral screening mammogram. Yearly follow-up mammogram recommended. (A) ASSESSMENT CATEGORY: BIRADS Category 2: Benign. A letter regarding these results will be sent to the patient by the facility within 30 days. Approximately 10% of breast cancers are not detected by mammography. A normal mammogram should not delay biopsy of a clinically suspicious abnormality. [id number] Electronically Signed: Per Frye MD at 9:13 EDT , Service support ,
--- NOTE | 2021-04-27 08:53 | BD_ITS ---
STUDY: DUAL ENERGY X-RAY ABSORPTIOMETRY / DXA REASON FOR EXAM: Female, 80 years old. OSTE patient is postmenopausal. Loss of height. TECHNIQUE: Bone Mineral Density (BMD) measurements of lumbar spine and bilateral hips were obtained. COMPARISON: Comparison is made with prior study dated 04/09/2019. FINDINGS: Lumbar Spine (L1-L4): g/cm2 (0.914) / T-score (-1.2) / Z-score (1.6) Findings are suggestive of osteopenia with a low fracture risk. Left Femur Total: g/cm2 (0.517) / T-score (-3.5) / Z-score (-1.3) Left Femoral Neck: g/cm2 (0.511) / T-score (-3.0) / Z-score (-0.6) Right Femur Total: g/cm2 (0.491) / T-score (-3.7) / Z-score (-1.5) Right Femoral Neck: g/cm2 (0.472) / T-score (-3.4) / Z-score (-1.0) The T-Scores on the most recent prior examination were: Lumbar Spine (L1-L4): There has been improvement of bone density since the previous examination. Left Femur Total: which represents an improvement of 1%. Right Femur Total: which represents an improvement of 4.3%. BD/Dexa Bone Density Study IMPRESSION: The patient is considered osteoporotic as outlined below according to World Diallo Organization (WHO) criteria with a high fracture risk. There has been improvement of bone density since the previous examination. Reference Information: The T-score is the number of standard deviations above or below the standard which is normal for young adults at their peak bone mineral density. The World Health Organization (WHO) interprets the T-scores as follows: Above -1 Normal bone density Between -1 and -2.5 Osteopenia Equal to / or below -2.5 Osteoporosis As a practical clinical guideline, osteopenia may be graded as follows: Mild -1 through -1.5 Moderate -1.6 through -2.0 Severe -2.1 through -2.4 The Z-score is the number of standard deviations above or below age-matched controls. A Z-score of less than -1.5 would be considered abnormal. References: 1. NIH Osteoporosis and Related Bone Diseases www osteo.org 2. International Society for Clinical Densitometry www iscd.org 3. National Osteoporosis Foundation www nof.org Electronically Signed: Per Frye MD at 15:34 EDT , Service support ,
== END ==
PROVIDERS: PCP Nurse Practitioner; Referring Provider Nurse Practitioner; Visit Provider Nurse Practitioner
DX: I10 Essential (primary) hypertension (principal); M81.0 Age-related osteoporosis without current pathological fracture; Z12.31 Encounter for screening mammogram for malignant neoplasm of breast
CPT/HCPCS: 36415; 77063; 77067; 77080; 80053; 85025

== ENCOUNTER → 2021-06-07 07:03 | Outpatient (CLI) | payer MEDICARE, BC, SELFPAY ==
[2021-06-07 10:38] LABS: Thyroid Stim Hormone (TSH) 0.75 uIU/mL (0.358-3.74)
== END ==
PROVIDERS: PCP Nurse Practitioner; Referring Provider Nurse Practitioner; Visit Provider Nurse Practitioner
DX: E03.9 Hypothyroidism, unspecified (principal)
CPT/HCPCS: 36415; 84443

== ENCOUNTER → 2021-08-16 07:32 | Outpatient (CLI) | payer MEDICARE, BC, SELFPAY ==
[2021-08-16 10:05] LABS: Absolute Lymphocyte Count 1.19 X10^3/uL (0.83-4.51); Absolute Neutrophil Count 1.8 X10^3/uL (2.0-7.7); Basophil# 0.06 X10^3/uL; Basophil% 1.6 % (0-1); Eosinophil# 0.13 X10^3/uL; Eosinophils% 3.5 % (0-5); Hematocrit 37.2 % (37-47); Lymphocyte # 1.19 X10^3/ul (0.83-4.51); Lymphocyte % 32.1 % (19-41); Mean Corp Hgb Conc 34.9 g/dL (32-36); Mean Corpuscular Hgb 32.3 pg (27.0-32.0); Mean Corpuscular Volume 92.5 fL (81-99); Mean Platelet Vol. 10.6 fl (6.2-12.0); Monocyte# 0.55 X10^3/uL; Monocyte% 14.8 % (0-10); NRBC Flagged by Analyzer 0 % (0-5); Neutrophil # 1.77 X10^3/uL (2.7-7.7); Neutrophil % 47.7 % (47-70); Platelet Count 246 K/mm3 (150-450); RBC Distribution Width CV 12.1 % (11.6-14.6); RBC Distribution Width SD 41.6 fl (35.1-43.9); Red Blood Count 4.02 M/mm3 (4.2-5.4); White Blood Count 3.7 K/mm3 (4.4-11.0)
[2021-08-16 10:42] LABS: Vitamin D,25 Hydroxy 64.5 ng/mL
[2021-08-16 11:00] LABS: ALB/GLOB Ratio 0.9 RATIO (0.9-2.4); AST(SGOT) 24 U/L (15-37); Alanine Aminotransfer ALT/SGPT 25 U/L (13-56); Albumin, Serum 3.2 g/dL (3.2-5.0); Alkaline Phosphatase 81 U/L (45-117); Anion Gap 5 (5-15); BUN 13 mg/dL (7-18); BUN/Creat Ratio 19.8 RATIO (10-20); Calcium,Total 8.5 mg/dL (8.5-10.1); Chloride 102 mmol/L (98-107); Cholesterol 163 mg/dL (200); Creatinine, Serum 0.66 mg/dL (0.55-1.02); EST Glomerular Filtration Rate 91 mL/min (>60); Est Glom Filt Rate - Afr Amer 111 mL/min (>60); Globulin 3.6 g/dL (2.2-4.2); Glucose 80 mg/dL (74-106); High Density Lipoprotein 86 mg/dL; Protein, Total 6.8 g/dL (6.4-8.2); Sodium Level 136 mmol/L (136-145); Thyroid Stim Hormone (TSH) 0.47 uIU/mL (0.358-3.74); Triglycerides 44 mg/dL; Very Low Density Lipoprotein 9 mg/dL (5-40)
== END ==
PROVIDERS: PCP Nurse Practitioner; Referring Provider Nurse Practitioner; Visit Provider Nurse Practitioner
DX: E78.5 Hyperlipidemia, unspecified (principal); E03.9 Hypothyroidism, unspecified; M81.0 Age-related osteoporosis without current pathological fracture
CPT/HCPCS: 36415; 80053; 80061; 82306; 84443; 85025

== ENCOUNTER → 2021-09-02 12:31 | Outpatient (CLI) | payer MEDICARE, BC, SELFPAY ==
--- NOTE | 2021-09-02 12:35 | EKG12_ITS ---
Test Reason : DIZZINESS Blood Pressure : / mmHG Vent. Rate : 085 BPM Atrial Rate : 085 BPM P-R Int : 184 ms QRS Dur : 088 ms QT Int : 378 ms P-R-T Axes : 085 070 079 degrees QTc Int : 449 ms Normal sinus rhythm Normal ECG Confirmed by KATHRINE OCASIO, JOE ([id number]), supervising editor trailer ROBERT MYLES ([id number]) on 09/03/2021 1:50:24 P M Referred By: Kristie Meadows Confirmed By:ELISABETH CHISHOLM MD
--- NOTE | 2021-09-02 12:35 | ECHOD_ITS ---
Reason For Study: DIZZINESS Procedure This was a 2D Doppler, Color Flow transthoracic echocardiogram. Exam performed in department. Left Ventricle Normal LV size. The estimated ejection fraction is 70 %. Unable to assess diastolic dysfunction. No regional wall motion abnormalities noted. Right Ventricle Normal RV size. Normal systolic function. Atria Normal left atrium. Normal right atrium. No doppler evidence for ASD. Mitral Valve There is moderate to severe mitral annular calcification. There is no mitral valve stenosis. Mild (1+) mitral valve insufficiency. Tricuspid Valve There is no tricuspid stenosis. Mild tricuspid valve insufficiency. Pulmonary artery systolic pressure is 40-45 mmHg. Aortic Valve Trisinus/trileaflet aortic valve. Aortic sclerosis, no stenosis. There is no aortic stenosis. Trivial aortic valve insufficiency. Pulmonic Valve There is no pulmonic valvular stenosis. No pulmonic valve insufficiency. Great Vessels Normal aortic root. Pericardium/Pleural No pericardial effusion. MMode/2D Measurements & Calculations LVIDd: 4.0 cm IVSd: 0.77 cm Ao root diam: 3.5 cm LVIDs: 2.4 cm LVPWd: 0.80 cm RVDd: 3.3 cm FS: 40.5 % LAV(MOD-sp4): 40.0 ml LA A4 area: 16.0 cm2 LA dimension(2D): 2.5 cm RA A4 area: 10.6 cm2 Doppler Measurements & Calculations MV E max francisco: 94.5 cm/sec Lat Peak E' Francisco: 8.3 cm/sec Med Peak E' Francisco: 8.0 cm/sec E/E' lat: 11.4 E/E' med: 11.8 MV V2 max: 120.1 cm/sec Ao V2 max: 135.6 cm/sec AI max francisco: 272.1 cm/sec MV max P.8 mmHg Ao max P.4 mmHg AI max P.6 mmHg MV V2 mean: 84.3 cm/sec AI dec slope: 180.7 cm/sec2 MV mean P.1 mmHg AI P1/2t: 441.0 msec MV V2 VTI: 32.7 cm LV V1 max: 127.3 cm/sec PA V2 max: 112.2 cm/sec TR max francisco: 303.2 cm/sec LV V1 max P.5 mmHg TR max P.8 mmHg MV P1/2t-pr_phl: 79.7 msec ECHO/Echo Complete Interpretation Summary The estimated ejection fraction is 70 %. Mild (1+) mitral valve insufficiency. Aortic sclerosis, no stenosis. Trivial aortic valve insufficiency. Ordering Physician: Kristie Meadows Referring Physician: Kristie Meadows Performed By: Kamryn Smith, EMMETT, RVT
== END ==
PROVIDERS: PCP Nurse Practitioner; Referring Provider Nurse Practitioner; Visit Provider Nurse Practitioner
DX: R42 Dizziness and giddiness (principal); I34.0 Nonrheumatic mitral (valve) insufficiency
CPT/HCPCS: 93005; 93306

== ENCOUNTER → 2021-09-29 09:16 | Outpatient (CLI) | payer MEDICARE, BC, SELFPAY ==
[2021-09-29 10:56] LABS: Thyroid Stim Hormone (TSH) 0.66 uIU/mL (0.358-3.74)
== END ==
PROVIDERS: PCP Nurse Practitioner; Referring Provider Nurse Practitioner; Visit Provider Nurse Practitioner
DX: E03.9 Hypothyroidism, unspecified (principal)
CPT/HCPCS: 36415; 84443

== ENCOUNTER 2021-11-10 08:45 | Outpatient (CLI) | payer MEDICARE, BC, SELFPAY ==
[2021-11-10 11:04] LABS: Thyroid Stim Hormone (TSH) 3.42 uIU/mL (0.358-3.74)
== END 2021-11-10 23:59 | disposition short-term general hospital (02) ==
LOC: MTLAB 08:46
PROVIDERS: PCP Nurse Practitioner; Referring Provider Nurse Practitioner; Visit Provider Nurse Practitioner
DX: E03.9 Hypothyroidism, unspecified (principal)
CPT/HCPCS: 36415; 84443

== ENCOUNTER 2021-12-15 13:40 | Outpatient (CLI) | payer MEDICARE, BC, SELFPAY ==
--- NOTE | 2021-12-15 13:43 | RAD_ITS ---
STUDY: XR Shoulder Min 2 Views REASON FOR EXAM: Female, 81 years old. PAIN TECHNIQUE: XR Shoulder Min 2 Views COMPARISON: None. FINDINGS: Normal glenohumeral articulation. Normal acromioclavicular joint. Normal acromion. Normal humeral head and visualized proximal humerus. The soft tissue structures are unremarkable. Normal visualized pulmonary apex. RAD/Shoulder min 2 Views IMPRESSION: There are no acute findings of the shoulder. Electronically Signed: Von Yeboah MD at 20:12 EST ,
== END 2021-12-15 23:59 | disposition home or self-care (01) ==
LOC: MTRAD 13:42
PROVIDERS: PCP Nurse Practitioner; Referring Provider Nurse Practitioner; Visit Provider Nurse Practitioner
DX: M25.9 Joint disorder, unspecified (principal)
CPT/HCPCS: 73030

== ENCOUNTER 2022-01-07 09:57 | Outpatient (CLI) | payer MEDICARE, BC, SELFPAY ==
[2022-01-07 12:11] LABS: Absolute Lymphocyte Count 1.22 X10^3/uL (0.83-4.51); Absolute Neutrophil Count 2.9 X10^3/uL (2.0-7.7); Basophil# 0.07 X10^3/uL; Basophil% 1.4 % (0-1); Eosinophil# 0.07 X10^3/uL; Eosinophils% 1.4 % (0-5); Hematocrit 38.4 % (37-47); Hemoglobin 13.6 g/dL (12.0-15.0); Lymphocyte # 1.22 X10^3/ul (0.83-4.51); Lymphocyte % 24.8 % (19-41); Mean Corp Hgb Conc 35.4 g/dL (32-36); Mean Corpuscular Hgb 32.6 pg (27.0-32.0); Mean Corpuscular Volume 92.1 fL (81-99); Mean Platelet Vol. 11.1 fl (6.2-12.0); Monocyte# 0.66 X10^3/uL; Monocyte% 13.4 % (0-10); NRBC Flagged by Analyzer 0 % (0-5); Neutrophil # 2.88 X10^3/uL (2.7-7.7); Neutrophil % 58.8 % (47-70); Platelet Count 272 K/mm3 (150-450); RBC Distribution Width CV 12.1 % (11.6-14.6); RBC Distribution Width SD 40.8 fl (35.1-43.9); Red Blood Count 4.17 M/mm3 (4.2-5.4); White Blood Count 4.9 K/mm3 (4.4-11.0)
[2022-01-07 12:32] LABS: Anion Gap 5 (5-15); BUN 17 mg/dL (7-18); BUN/Creat Ratio 21.7 RATIO (10-20); Calcium,Total 9.6 mg/dL (8.5-10.1); Chloride 102 mmol/L (98-107); Creatinine, Serum 0.78 mg/dL (0.55-1.02); EST Glomerular Filtration Rate 74 mL/min (>60); Est Glom Filt Rate - Afr Amer 90 mL/min (>60); Glucose 99 mg/dL (74-106); Sodium Level 136 mmol/L (136-145); Thyroid Stim Hormone (TSH) 3.91 uIU/mL (0.358-3.74)
== END 2022-01-07 23:59 | disposition home or self-care (01) ==
LOC: MTLAB 09:58
PROVIDERS: PCP Nurse Practitioner; Referring Provider Nurse Practitioner; Visit Provider Nurse Practitioner
DX: R00.0 Tachycardia, unspecified (principal)
CPT/HCPCS: 36415; 80048; 84443; 85025

== ENCOUNTER 2022-01-14 12:12 | Outpatient (CLI) | payer MEDICARE, BC, SELFPAY ==
--- NOTE | 2022-01-14 12:35 | CDU_ITS ---
Reason For Study: Dizziness Rt. Velocities/BP Lt. Velocities/BP Prox CCA 113/13 cm/sec. Prox CCA 86/16 cm/sec. Mid CCA 83/16 cm/sec. Mid CCA 71/14 cm/sec. Dist CCA 73/13 cm/sec. Dist CCA 67/16 cm/sec. Prox ICA 67/15 cm/sec. Prox ICA 86/19 cm/sec. Mid ICA 62/14 cm/sec. Mid ICA 70/12 cm/sec. Dist ICA 66/21 cm/sec. Dist ICA 54/16 cm/sec. Rt. ICA/CCA = 0.8. Lt. ICA/CCA = 1.2. Prox ECA 66/8 cm/sec. Prox ECA 71/10 cm/sec. Rt. Vert. 42/12 cm/sec. Lt. Vert. 56/10 cm/sec. Right Extracranial There is intimal thickening but no significant atherosclerotic plaque noted in the right common carotid artery. There is heterogeneous, irregular atherosclerotic plaque noted in the right internal carotid artery. There is heterogeneous, irregular atherosclerotic plaque noted in the right external carotid artery. Antegrade flow is noted in the right vertebral artery. Left Extracranial There is heterogeneous, irregular atherosclerotic plaque noted in the left common carotid artery. There is intimal thickening but no significant atherosclerotic plaque noted in the left internal carotid artery. There is intimal thickening but no significant atherosclerotic plaque noted in the left external carotid artery. Antegrade flow is noted in the left vertebral artery. Procedure Carotid Duplex [id number]. This is a Carotid Duplex examination using B-mode, color flow and specral Doppler. Exam performed in department. VL/Carotid Duplex Ultrasound Interpretation Summary Mild (<50%) stenosis right extracranial internal carotid. No significant athero sclerotic plaque or stenosis noted in the left internal carotid artery. Flow within the vertebral a rteries is antegrade bilaterally. Ordering Physician: Kristie Meadows Referring Physician: Kristie Meadows Performed By: Janny Briscoe, EMMETT, RVT
[2022-01-14 12:37] LABS: Absolute Lymphocyte Count 1.47 X10^3/uL (0.83-4.51); Absolute Neutrophil Count 3.3 X10^3/uL (2.0-7.7); Basophil# 0.09 X10^3/uL; Basophil% 1.6 % (0-1); Eosinophils% 1.8 % (0-5); Hematocrit 36.5 % (37-47); Hemoglobin 12.9 g/dL (12.0-15.0); Lymphocyte # 1.47 X10^3/ul (0.83-4.51); Lymphocyte % 26.7 % (19-41); Mean Corp Hgb Conc 35.3 g/dL (32-36); Mean Corpuscular Hgb 32.6 pg (27.0-32.0); Mean Corpuscular Volume 92.2 fL (81-99); Mean Platelet Vol. 9.5 fl (6.2-12.0); Monocyte# 0.57 X10^3/uL; Monocyte% 10.4 % (0-10); NRBC Flagged by Analyzer 0 % (0-5); Neutrophil # 3.25 X10^3/uL (2.7-7.7); Neutrophil % 59.1 % (47-70); Platelet Count 248 K/mm3 (150-450); RBC Distribution Width CV 11.9 % (11.6-14.6); RBC Distribution Width SD 40.4 fl (35.1-43.9); Red Blood Count 3.96 M/mm3 (4.2-5.4); White Blood Count 5.5 K/mm3 (4.4-11.0)
[2022-01-18 13:08] LABS: Free Kappa Light Chains 22.4 mg/L (3.3-19.4); Free Lambda Light Chains 13.9 mg/L (5.7-26.3); Immunoglobulin A 244 mg/dL (64-422); Immunoglobulin G 930 mg/dL (586-1602); Immunoglobulin M 86 mg/dL (26-217); PROEL- A/G Ratio 1.4 (0.7-1.7); PROEL- Albumin 3.7 g/dL (2.9-4.4); PROEL- Alpha-1 Globulin 0.2 g/dL (0.0-0.4); PROEL- Alpha-2 Globulin 0.7 g/dL (0.4-1.0); PROEL- Beta Globulin 0.9 g/dL (0.7-1.3); PROEL- Gamma Globulin 0.8 g/dL (0.4-1.8); PROEL- Globulin, Total 2.6 g/dL (2.2-3.9); PROEL- TOTAL PROTEIN 6.3 g/dL (6.0-8.5); PROELU- Albumin, Urine 59.5 % (.); PROELU- Alpha-1-Globulin,Ur 3.5 % (.); PROELU- Alpha-2-Globulin,Ur 11.7 % (.); PROELU- Beta Globulin, Ur 17.2 % (.); PROELU- Gamma Globulin, Ur 8.1 % (.); Total Protein, Ur 6.5 mg/dL (Not Estab.)
== END 2022-01-14 23:59 | disposition home or self-care (01) ==
LOC: CVS 12:15
PROVIDERS: PCP Nurse Practitioner; Referring Provider Nurse Practitioner; Visit Provider Nurse Practitioner
DX: R79.89 Other specified abnormal findings of blood chemistry (principal); R42 Dizziness and giddiness
CPT/HCPCS: 36415; 82784; 83883; 84165; 84166; 85025; 86334; 86335; 93880

== ENCOUNTER 2022-01-17 07:42 | Outpatient (CLI) | payer MEDICARE, BC, SELFPAY ==
--- NOTE | 2022-01-17 07:45 | CT_ITS ---
STUDY: CT BRAIN WITHOUT CONTRAST REASON FOR EXAM: Female, 81 years old. DIZZINESS RADIATION DOSAGE (If Supplied By Facility): CTDIvol = ( 44.99 ) mGy, DLP = ( 796.11 ) mGycm TECHNIQUE: Transaxial CT imaging of the brain was performed without administration of intravenous contrast material. Individualized dose optimization techniques were used for this CT. COMPARISON: No relevant priors. FINDINGS: Normal soft tissue structures. Normal calvarium. There is mild cerebral atrophy with widening of the extra-axial spaces and ventricular dilatation. Normal white matter tracts of the cerebral hemispheres. Normal basal ganglia and thalami. Normal brainstem. There is mild cerebellar atrophy. There is no intracranial hemorrhage. There are no findings of an acute ischemic infarction. Atherosclerotic calcification of the cavernous portions of the internal carotid arteries bilaterally. Normal visualized paranasal sinuses. CT/Brain/Head without Contrast IMPRESSION: Chronic involutional changes of the brain. Electronically Signed: Per Frye MD at 8:37 EDT ,
== END 2022-01-17 23:59 | disposition home or self-care (01) ==
LOC: CT 07:43
PROVIDERS: PCP Nurse Practitioner; Referring Provider Nurse Practitioner; Visit Provider Nurse Practitioner
DX: R42 Dizziness and giddiness (principal); R00.0 Tachycardia, unspecified
CPT/HCPCS: 70450; 93225; 93226

== ENCOUNTER → 2022-03-04 | Outpatient (CLI) | payer MEDICARE, BC, SELFPAY | END | disposition home or self-care (01) | PROVIDERS: PCP Nurse Practitioner Family; Referring Provider Internal Medicine Cardiovascular Disease; Visit Provider Internal Medicine Cardiovascular Disease | DX: I10 Essential (primary) hypertension (principal) | CPT/HCPCS: 93788 ==

== ENCOUNTER 2022-03-29 09:30 | Outpatient (RCR) | payer MEDICARE, BC, SELFPAY ==
--- NOTE | 2022-03-07 10:51 | HP.PTEVAL ---
Patient's Visit Information CHINMAY COTA is a 81 year old F referred to Physical Therapy by MAIKEL Andrews with a diagnosis of LUMBAR PAIN WITH RADICULOPATHY. Date of Evaluation: 03/07/22 Physical Therapist: Beti Morales, PT, Cert MDT - Visit Plan Frequency: 2-3x /Week Duration: 4-6 Weeks Plan: LUMBAR US, POSTURE CORRECTION/STRENGTHENING, INSTRUCTION IN APPROPRIATE BODY MECHANICS AND ACTIVITY MODIFICATIONS. DLS STARTING WITH A NEUTRAL SPINE PROGRESSING ROM TOLERATED. LM LE ROM, STRETCHING AND STRENGTHENING. HEP INSTRUCTION. - Subjective Work/Leisure: RETIRED. Present symptoms: LOW BACK PAIN AND RIGHT LE PAIN AND TINGLING DOWN LEG TO FOOT. Present since: 2 WEEK EPISODE IN OCT 2021 AND CAME BACK LATER FOR ABOUT 2 WKS AND WENT AWAY AGAIN. THIS EPISODE STARTED ABOUT 3-4 WEEKS AGO AND PROGRESSIVELY GETTING WORSE. Pain Scale: WORST 9/10, LEAST 0/10. Currently: 10. Commenced as a result of: NO APPARENT REASON BUT PATIENT REPORTS SHE RECENTLY STARTED TRYING TO STAND AND WALK STRAIGHTER AND IMPROVE HER STRIDE LENGTH AND SHE THINKS THIS MIGHT HAVE CONTRIBUTED TO HER PAIN. Symptoms at onset: LOW BACK AND RIGHT HIP PAIN. Worse: TRYING TO STAND UP STRAIGHT, WALKING AND JUST USING IT. HANGING CLOTHES UP/OUT, STAIRS. Better: SITTING DOWN. Disturbed sleep: NO. Previous history/Previous treatment: UNREMARKABLE. NO BACK SURGERY, NO GURINDER'S, NO CHIRO, NO PT. Treatment this episode: NONE. Coughing/sneezing/straining: NEGATIVE. Gait: TIME AND DISTANCE LIMITED DUE TO BACK AND LEG PAIN. PATIENT REPORTS SHE HAS BEEN TAKING SHORT STEPS FOR AWHILE NOW AND EVEN BEFORE HER BACK AND LEG STARTED HURTING. Difficulty initiating urination: NO. Bowel or Bladder Dysfunction: NO. Accidents: FALL 2001 - BROKE RIGHT ANKLE - ORIF. Unexplained weight loss: NO. Imaging: RECENT LUMBAR, PELVIC AND HIP X-RAYS IN [facility] EMR: FINDINGS: VERTEBRAE: No acute fracture or subluxation. No focal bone lesion. DISC SPACES: Multilevel disc space narrowing and facet arthropathy. Mild. anterior listhesis of L2 on L3 and L4 on L5 likely related to underlying. degenerative change. Mild levoscoliosis. RAD/Lumbar Spine 2 or 3 Views. IMPRESSION: . Moderate diffuse spondylosis. . Electronically Signed: Chas Minaya MD. at 9:14 EDT. Reading Location ID and State: [id number] / [place]. FINDINGS: BONES/JOINTS: No acute fracture or subluxation. Degenerative changes noted. within the visualized spine. No displaced fracture. No destructive or. sclerotic lesions. Sacroiliac joint is unremarkable. No widening of the. pubic symphysis. The articular structures are unremarkable. SOFT TISSUES: Unremarkable. No soft tissue swelling or gas. RAD/HIP, UNI W/ Pelvis 2-3 Views. IMPRESSION: . No acute abnormality. . Electronically Signed: Chas Minaya MD. at 9:40 EDT. Reading Location ID and State: [address] / [place]. PMH/Recent major surgery: HTN, HYPOTHYROIDISM, OSTEOPOROSIS. ORIF OF R ANKLE. - Objective Sitting/Standing Posture: POOR. FH. RS'S. DECREASED LORDOSIS. SCOLIOSIS. Active Correction of posture: WORSE. Other Observations: INDEP GAIT INTO PT TODAY WITHOUT ANY AD'S OR LOB. PATIENT WALKS WITH INCRASED TRUNK FLEXION, DECREASED CADANCE AND VERY SHORT LM STRIDE LENGTH. PATIENT IS ABLE TO TRANSFER INDEP'LY FROM SIT TO STAND WITHOUT UE ASSIST. Sensory deficit: LM LE LIGHT TOUCH SENSATION IS GROSSLY INTACT AND SYMMETRICAL. ROM deficit: TIGHT LM HIP FLEXORS, HS'S AND GASTROC SOLEUS COMPLEX'S. Motor deficit: LM LE'S 5/5 WITH MMT'ING. Dural Signs: NEGATIVE LM LE'S. Lumbar mvmt loss: flex - NIL. ext - MOD. R SG - KONG. L SG - MOD. INCREASED LOW BACK PAIN WITH LUMBAR EXTENSION TESTING. Core strength: FAIR. Palpation: NO ACUTE LUMBAR, SACRAL OR HIP/PELVIC TENDERNESS. TREATMENT: NEUROMUSCULAR REEDUCATION - RETRAINING OF MVMT AND POSTURE FOR SITTING, LYING AND STANDING ACTIVITIES. - Balance/Special Test Scores Oswestry Low Back Score: 9 TUG Test Time Seconds: 12.04 - Goals Goal 1:: DECREASE C/O LOW BACK AND RIGHT LE SX'S. Goal Time Frame: 4-6 Weeks Goal 2:: IMPROVE STAIR CLIMBING, STANDING AND WALKING FUNCTION. Goal Time Frame: 4-6 Weeks Goal 3:: INSTRUCT IN PROPHYLAXIS Goal Time Frame: 4-6 Weeks - Anticipated Interventions Patient/Client Instruction: Educate patient on: Condition, Plan of Care, Risk Factors For the Purpose of:: To improve self management Therapeutic Exercise to Include: Strength training, Body mechanics, Postural training, Flexibilty training, Gait and locomotor training, Neuromotor development, In an aquatic setting, Dynamic Lumbar Stabilization For the Purpose of:: To improve self management Cryotherapy (ice pack, ice massage): Yes Thermo therapy (hot pack): Yes Ultrasound (thermal/non thermal): Yes For the Purpose of:: To decrease pain, To improve nutrient delivery to tissue Thank you for the opportunity to evaluate your patient. For Medicare and Medicare HMO plans, please review the plan of care and approve it. It will need to be FAXED BACK to us at [phone] for Medicare purposes. For Medicare only, by signing this I certify the plan of care. Please let me know if there are questions or concerns regarding this plan of care. Physician Signature: Date:
--- NOTE | 2022-03-29 10:31 | HP.PTDCSUM ---
It has been my pleasure to treat CHINMAY COTA referred by MAIKEL Andrews, with the diagnosis of LUMBAR PAIN WITH RADICULOPATHY for a total of 10 visit(s). Discharge Date: 03/29/22 Please see the following information for a summary of their discharge status. Subjective: I'M SO MUCH BETTER. MY ORIGIANL PAIN I CAME HERE FOR DOWN MY LEG IS GONE BUT SOME MILD HIP DISCOMFORT. HIP DISCOMFORT IS RARELY THERE NOW. Low back Pain Intensity (Out of 10): 0 Right LE Pain Intensity (Out of 10): 0 % Improvement: 100 Objective/Function: PATIENT WAS SEEN TODAY FOR RE-ASSESSMENT OF PROGRESS TOWARD THE SET PT GOALS AND THE NEED FOR FURTHER PHYSICAL THERAPY VS READINESS FOR DISCHARGE. PATIENT REPORTS THAT THE PAIN SHE CAME HERE FOR IS GONE. SHE IS INDEP WITH A HEP. TUG TIME HAS IMPROVED AND LUMBAR EXT ROM TESTING DOES NOT PROVOKE PAIN TODAY. UPON EXAM TODAY: Lumbar mvmt loss: flex - NIL. ext - MOD. R SG - KONG. L SG - MOD. PATIENT DENIES PAIN WITH LUMBAR ROM TESTING ALL PLANES. PATIENT CONTINUES TO WALK WITH SHORT QUICK STEPS AND IS ONLY ABLE TO PARTIALLY CORRECT WITH CUEING. USING ROLLATOR AT HOME SOME TO WORK ON IMPROVING STRIDE. WOULD BENEFIT FROM FURTHER PT FOR GAIT/BALANCE TRAINING. PATIENT WITH QUESTIONS ABOUT POSSIBLE NEED FOR ORTHOPEDIC SHOES AND MAY DISCUSS WITH INTERNATIONAL TRADE SPECIALIST. [ End ] Goal 1:: DECREASE C/O LOW BACK AND RIGHT LE SX'S. Goal Progress: Goal Met Goal 2:: IMPROVE STAIR CLIMBING, STANDING AND WALKING FUNCTION. Goal Progress: Goal Met Goal 3:: INSTRUCT IN PROPHYLAXIS Goal Progress: Goal Met Plan: D/C TO INDEP HEP. RECOMMENDED PATIENT FOLLOW UP WITH PCP ABOUT POSSIBLE BENEFITS OF FURTHER GAIT AND BALANCE PT EVAL. PATIENT WILL CONSIDER. If there are questions or concerns regarding this patient's physical therapy, please feel free to call me at [phone]. Thank you for the referral of this patient. Sincerely, Beti Morales, PT, Cert MDT Balance/Gait/Functional tests - Balance/Special Test Scores Oswestry Low Back Score: 2 TUG Test Time Seconds: 11.05 Tug Test: <20 sec.=mostly independent
== END 2022-03-29 19:00 | disposition home or self-care (01) ==
LOC: PT 09:30
PROVIDERS: PCP Nurse Practitioner Family
DX: M54.16 Radiculopathy, lumbar region (principal)
CPT/HCPCS: 97110; 97112; 97162; 97164; 97530

== ENCOUNTER → 2022-04-28 | Outpatient (CLI) | payer MEDICARE, BC, SELFPAY ==
--- NOTE | 2022-04-28 08:32 | BI_ITS ---
MAMMOGRAPHY - BILATERAL SCREENING REASON FOR EXAM: Female, 81 years old. Routine annual screening examination. PERTINENT HISTORY: Non-contributory. TECHNIQUE: Digital bilateral breast loan (3D mammographic acquisition) in the CC and MLO projections. 2-D mediolateral oblique (MLO) and craniocaudad (CC) views of both breasts were obtained. CAD: Full Field Digital Mammography with Computer Added Detection was performed. COMPARISON: Comparison is made with prior study dated 04/27/2021 and 04/20/2020. FINDINGS: Breast Composition: The breasts are heterogeneously dense, which may obscure small masses. There are no dominant masses or suspicious calcifications. Stable bilateral secretory calcifications. No other significant abnormalities are identified. There has been no significant change since the prior study. BI/SCRN MAMM (CAD)W/LOAN BILAT IMPRESSION: Stable bilateral screening mammogram. Yearly follow-up mammogram recommended. (A) ASSESSMENT CATEGORY: BIRADS Category 2: Benign. A letter regarding these results will be sent to the patient by the facility within 30 days. Approximately 10% of breast cancers are not detected by mammography. A normal mammogram should not delay biopsy of a clinically suspicious abnormality. [id number] Electronically Signed: Per Frye MD at 9:18 EDT ,
== END | disposition home or self-care (01) ==
LOC: OPBI 08:30
PROVIDERS: PCP Nurse Practitioner Family; Visit Provider Nurse Practitioner
DX: Z12.31 Encounter for screening mammogram for malignant neoplasm of breast (principal)
CPT/HCPCS: 77063; 77067

== ENCOUNTER → 2022-05-02 | Outpatient (CLI) | payer MEDICARE, BC, SELFPAY ==
[2022-05-02 12:41] LABS: Absolute Lymphocyte Count 1.25 X10^3/uL (0.83-4.51); Absolute Neutrophil Count 2.9 X10^3/uL (2.0-7.7); Basophil# 0.04 X10^3/uL; Basophil% 0.8 % (0-1); Eosinophil# 0.06 X10^3/uL; Eosinophils% 1.3 % (0-5); Hematocrit 38.5 % (37-47); Hemoglobin 13.4 g/dL (12.0-15.0); Lymphocyte # 1.25 X10^3/ul (0.83-4.51); Mean Corp Hgb Conc 34.8 g/dL (32-36); Mean Corpuscular Volume 91.9 fL (81-99); Mean Platelet Vol. 10.8 fl (6.2-12.0); Monocyte# 0.51 X10^3/uL; Monocyte% 10.6 % (0-10); NRBC Flagged by Analyzer 0 % (0-5); Neutrophil # 2.93 X10^3/uL (2.7-7.7); Neutrophil % 61.1 % (47-70); Platelet Count 252 K/mm3 (150-450); RBC Distribution Width CV 12.2 % (11.6-14.6); RBC Distribution Width SD 41.1 fl (35.1-43.9); Red Blood Count 4.19 M/mm3 (4.2-5.4); White Blood Count 4.8 K/mm3 (4.4-11.0)
[2022-05-02 13:07] LABS: ALB/GLOB Ratio 1.1 RATIO (0.9-2.4); AST(SGOT) 29 U/L (15-37); Alanine Aminotransfer ALT/SGPT 29 U/L (13-56); Albumin, Serum 3.9 g/dL (3.2-5.0); Alkaline Phosphatase 78 U/L (45-117); Anion Gap 8 (5-15); BUN 10 mg/dL (7-18); BUN/Creat Ratio 15.1 RATIO (10-20); Calcium,Total 9.1 mg/dL (8.5-10.1); Chloride 99 mmol/L (98-107); Cholesterol 199 mg/dL (200); Creatinine, Serum 0.66 mg/dL (0.55-1.02); EST Glomerular Filtration Rate 91 mL/min (>60); Est Glom Filt Rate - Afr Amer 110 mL/min (>60); Globulin 3.6 g/dL (2.2-4.2); Glucose 84 mg/dL (74-106); High Density Lipoprotein 96 mg/dL; Potassium 3.7 mmol/L (3.5-5.1); Protein, Total 7.5 g/dL (6.4-8.2); Sodium Level 135 mmol/L (136-145); Triglycerides 53 mg/dL; Very Low Density Lipoprotein 11 mg/dL (5-40)
== END | disposition home or self-care (01) ==
PROVIDERS: PCP Nurse Practitioner Family; Referring Provider Nurse Practitioner Family; Visit Provider Nurse Practitioner Family
DX: E78.5 Hyperlipidemia, unspecified (principal); E03.9 Hypothyroidism, unspecified; I10 Essential (primary) hypertension; G47.00 Insomnia, unspecified
CPT/HCPCS: 36415; 80053; 80061; 84443; 85025

== ENCOUNTER 2022-06-02 09:00 | Outpatient (RCR) | payer MEDICARE, BC, SELFPAY ==
--- NOTE | 2022-05-03 14:04 | HP.PTEVAL ---
Patient's Visit Information CHINMAY COTA is a 81 year old F referred to Physical Therapy by Dr. Su Quintero DPM with a diagnosis of UNSTABLE GAIT. Date of Evaluation: 05/03/22 Physical Therapist: Beti Morales, PT, Cert MDT - Visit Plan Frequency: 2-3x /Week Duration: 4-6 Weeks Plan: GAIT AND BALANCE TRAINING TO HELP MEET SET GOALS. LM LE ROM, STRETCHING AND STRENGTHENING. - Subjective PATIENT REPORTS SHE IS BACK TO THERAPY TO CONTINUE TO WORK ON HER WALKING. SHE REPORTS SOME OF HER PROBLEM IS FEAR. HAS CONTINUED DOING HEP GIVEN LAST EPISODE OF CARE WITH PT AND PRACTICING WALKING AT HOME WITH HER ROLLATOR. THIS SEEMS TO HAVE PROVOKED SOME RIGHT ANKLE PAIN BUT IT IS OK NOW. PATIENT REPORTS DR. QUINTERO SAID THAT EVERYTHING IS GOOD WITH HER FEET THEMSELVES AND SHE ORDERED PT FOR HER BALANCE. PATIENT REPORTS ORTHOTICS OR ORTHOPEDIC SHOES WERE NOT RECOMMENDED. ALSO SAW A NEW NURSE PRACTITIONER AT [facility] YESTERDAY, BLOODWORK ORDERED BUT NO OTHER CHANGES RECOMMENDED THAT PATIENT CAN RE-CALL. PATIENT REPORTS HER BACK AND LEG PAIN THAT SHE CAME TO PT FOR THE LAST MONTH OR TWO IS STILL GONE. Accidents: FALL 2001 - BROKE RIGHT ANKLE - ORIF. Unexplained weight loss: NO. Imaging: RECENT LUMBAR, PELVIC AND HIP X-RAYS IN [facility] EMR: Mild levoscoliosis. IMPRESSION: . Moderate diffuse spondylosis. PMH/Recent major surgery: HTN, HYPOTHYROIDISM, OSTEOPOROSIS. ORIF OF R ANKLE - Objective Sitting/Standing Posture: POOR. FH. RS'S. DECREASED LORDOSIS. SCOLIOSIS. Active Correction of posture: WORSE. Other Observations: INDEP GAIT INTO PT TODAY WITHOUT ANY AD'S OR LOB. PATIENT WALKS WITH MILD INCRASED TRUNK FLEXION, DECREASED CADANCE AND VERY SHORT LM STRIDE LENGTH. AVOIDS FORWARD WEIGHT SHIFT WITH AMBULATION. PATIENT IS ABLE TO TRANSFER INDEP'LY FROM SIT TO STAND WITHOUT UE ASSIST. Sensory deficit: LM LE LIGHT TOUCH SENSATION IS GROSSLY INTACT AND SYMMETRICAL. ROM deficit: TIGHT LM HIP FLEXORS AND HS'S. PATIENT ALSO HAS LM HIP ER TIGHTNESS LEFT > RIGHT. Motor deficit: LM LE'S 5/5 WITH MMT'ING. Dural Signs: NEGATIVE LM LE'S. Core strength: FAIR. - Balance/Special Test Scores Lower Extremity Functional Score: 55 TUG Test Time Seconds: 11.10 30 Second Chair Rise Test Seconds: 9 - Goals Goal 1:: PATIENT WILL COMPLETE TUG IN < 10 SECS TO DEMONSTRATE IMPROVED GAIT STABILITY Goal Time Frame: 4-6 Weeks Goal 2:: PATIENT WILL COMPLETE 12 STANDS IN 30 SECS TO DEMONSTRATE IMPROVED FUNCTIONAL STRENGTH Goal Time Frame: 4-6 Weeks Goal 3:: PATIENT WILL DEMO ABILITY TO ASCEND AND DESCEND STEPS RECIPRICALLY WITHOUT UE ASSIST. Goal Time Frame: 4-6 Weeks Goal 4:: PATIENT WILL REPORT DECREASED FEAR OF FALLING AND DEMO IMPROVED STRIDE LENGTH WITH GAIT FOR BETTER GAIT EFFICIENCY. Goal Time Frame: 4-6 Weeks Goal 5:: PATIENT WILL BE INDEP WITH A HEP FOR CONTINUED IMPROVEMENT ONCE FORMAL PHYSICAL THERAPY CONCLUDES. Goal Time Frame: 4-6 Weeks - Anticipated Interventions Patient/Client Instruction: Educate patient on: Condition, Plan of Care, Risk Factors For the Purpose of:: To improve self management Therapeutic Exercise to Include: Balance training, Flexibilty training, Gait and locomotor training, Neuromotor development For the Purpose of:: To improve muscle performance and motor function, To improve ability of physical actions for home/community/work/leisure, To improve gait and locomotor functions Thank you for the opportunity to evaluate your patient. For Medicare and Medicare HMO plans, please review the plan of care and approve it. It will need to be FAXED BACK to us at [phone] for Medicare purposes. For Medicare only, by signing this I certify the plan of care. Please let me know if there are questions or concerns regarding this plan of care. Physician Signature: Date:
--- NOTE | 2022-06-02 09:26 | HP.PTDCSUM ---
It has been my pleasure to treat CHINMAY COTA referred by Dr. Su Quintero DPM, with the diagnosis of UNSTABLE GAIT for a total of 10 visit(s). Discharge Date: Please see the following information for a summary of their discharge status. Subjective: PATIENT REPORTS SHE IS A LOT MORE CONFIDENT WITH HER BALANCE NOW. STATES IT IS NICE TO SEE PROGRESS AND FEELS OK STOPPING PT. % Improvement: 90 Objective/Function: PATIENT WAS SEEN TODAY FOR RE-ASSESSMENT OF PROGRESS TOWARD THE SET PT GOALS AND THE NEED FOR FURTHER PHYSICAL THERAPY VS READINESS FOR DISCHARGE. UPON EXAM TODAY ALL GOALS HAVE BEEN MET. PATIENT EVEN DEMO'S INDEP GAIT UP AND DOWN STEPS RECIP WITHOUT HR BUT MORE CONFIDENT GOING UP THAN DOWN. SHE IS APPROPRIATE FOR DISCHARGE AND AGREEABLE TO DISCHARGE. Goal 1:: PATIENT WILL COMPLETE TUG IN < 10 SECS TO DEMONSTRATE IMPROVED GAIT STABILITY Goal Progress: Goal Met Goal 2:: PATIENT WILL COMPLETE 12 STANDS IN 30 SECS TO DEMONSTRATE IMPROVED FUNCTIONAL STRENGTH Goal Progress: Goal Met Goal 3:: PATIENT WILL DEMO ABILITY TO ASCEND AND DESCEND STEPS RECIPRICALLY WITHOUT UE ASSIST. Goal Progress: Goal Met Goal 4:: PATIENT WILL REPORT DECREASED FEAR OF FALLING AND DEMO IMPROVED STRIDE LENGTH WITH GAIT FOR BETTER GAIT EFFICIENCY. Goal Progress: Goal Met Goal 5:: PATIENT WILL BE INDEP WITH A HEP FOR CONTINUED IMPROVEMENT ONCE FORMAL PHYSICAL THERAPY CONCLUDES. Goal Progress: Goal Met Plan: D/C. PATIENT AGREEABLE. If there are questions or concerns regarding this patient's physical therapy, please feel free to call me at [phone]. Thank you for the referral of this patient. Sincerely, Beti Morales, PT, Cert MDT Balance/Gait/Functional tests - Balance/Special Test Scores Lower Extremity Functional Score: 61 TUG Test Time Seconds: 9.36 Tug Test: <10 sec.=free mobile 30 Second Chair Rise Test Seconds: 13
== END 2022-06-02 10:31 | disposition home or self-care (01) ==
LOC: PT 09:00
PROVIDERS: PCP Nurse Practitioner Family; Referring Provider Podiatrist; Visit Provider Podiatrist
DX: R26.89 Other abnormalities of gait and mobility (principal)
CPT/HCPCS: 97110; 97116; 97162; 97164

== ENCOUNTER → 2022-11-03 | Outpatient (CLI) | payer MEDICARE, BC, SELFPAY ==
[2022-11-03 10:16] LABS: Absolute Lymphocyte Count 1.47 X10^3/uL (0.83-4.51); Absolute Neutrophil Count 2.2 X10^3/uL (2.0-7.7); Basophil# 0.07 X10^3/uL; Basophil% 1.5 % (0-1); Eosinophil# 0.21 X10^3/uL; Eosinophils% 4.6 % (0-5); Hematocrit 38.6 % (37-47); Hemoglobin 13.2 g/dL (12.0-15.0); Lymphocyte # 1.47 X10^3/ul (0.83-4.51); Lymphocyte % 32.3 % (19-41); Mean Corp Hgb Conc 34.2 g/dL (32-36); Mean Corpuscular Hgb 32.3 pg (27.0-32.0); Mean Corpuscular Volume 94.4 fL (81-99); Mean Platelet Vol. 10.6 fl (6.2-12.0); Monocyte# 0.61 X10^3/uL; Monocyte% 13.4 % (0-10); NRBC Flagged by Analyzer 0 % (0-5); Neutrophil # 2.18 X10^3/uL (2.7-7.7); Platelet Count 252 K/mm3 (150-450); RBC Distribution Width CV 12.2 % (11.6-14.6); Red Blood Count 4.09 M/mm3 (4.2-5.4); White Blood Count 4.6 K/mm3 (4.4-11.0)
[2022-11-03 10:41] LABS: ALB/GLOB Ratio 1.1 RATIO (0.9-2.4); AST(SGOT) 31 U/L (15-37); Alanine Aminotransfer ALT/SGPT 31 U/L (13-56); Albumin, Serum 3.7 g/dL (3.2-5.0); Alkaline Phosphatase 80 U/L (45-117); Anion Gap 4 (5-15); BUN 17 mg/dL (7-18); BUN/Creat Ratio 21.4 RATIO (10-20); Calcium,Total 8.8 mg/dL (8.5-10.1); Chloride 103 mmol/L (98-107); EST Glomerular Filtration Rate 73 mL/min (>60); Est Glom Filt Rate - Afr Amer 88 mL/min (>60); Globulin 3.3 g/dL (2.2-4.2); Glucose 86 mg/dL (74-106); Potassium 4.1 mmol/L (3.5-5.1); Sodium Level 137 mmol/L (136-145); T4 Free Direct 0.93 ng/dL (0.76-1.46)
[2022-11-06 09:20] LABS: Vitamin D 1,25-Dihydroxy 43.4 pg/mL (24.8-81.5)
== END | disposition home or self-care (01) ==
LOC: MTLAB 07:02
PROVIDERS: PCP Nurse Practitioner Family; Referring Provider Nurse Practitioner Family; Visit Provider Nurse Practitioner Family
DX: I10 Essential (primary) hypertension (principal); E03.9 Hypothyroidism, unspecified; E55.9 Vitamin D deficiency, unspecified
CPT/HCPCS: 36415; 80053; 82652; 84439; 84443; 85025

== ENCOUNTER → 2022-11-18 | Outpatient (CLI) | payer MEDICARE, BC, SELFPAY ==
[2022-11-18 10:01] LABS: Absolute Neutrophil Count 2.8 X10^3/uL (2.0-7.7); Basophil# 0.07 X10^3/uL; Basophil% 1.5 % (0-1); Eosinophil# 0.14 X10^3/uL; Hematocrit 38.2 % (37-47); Lymphocyte % 21.7 % (19-41); Mean Corpuscular Hgb 32.3 pg (27.0-32.0); Mean Corpuscular Volume 94.8 fL (81-99); Mean Platelet Vol. 10.2 fl (6.2-12.0); Monocyte# 0.62 X10^3/uL; Monocyte% 13.5 % (0-10); NRBC Flagged by Analyzer 0 % (0-5); Neutrophil # 2.76 X10^3/uL (2.7-7.7); Neutrophil % 60.1 % (47-70); Platelet Count 255 K/mm3 (150-450); RBC Distribution Width CV 12.1 % (11.6-14.6); RBC Distribution Width SD 42.5 fl (35.1-43.9); RET-HE 37.2 pg (30-35); Red Blood Count 4.03 M/mm3 (4.2-5.4); Reticulocyte Count 1.48 % (0.5-1.5); White Blood Count 4.6 K/mm3 (4.4-11.0)
[2022-11-18 10:35] LABS: Bilirubin, Direct 0.23 mg/dL (0.00-0.30)
== END | disposition home or self-care (01) ==
LOC: LAB 09:04
PROVIDERS: PCP Nurse Practitioner Family; Referring Provider Nurse Practitioner Family; Visit Provider Nurse Practitioner Family
DX: R17 Unspecified jaundice (principal); R79.89 Other specified abnormal findings of blood chemistry
CPT/HCPCS: 36415; 82248; 85025; 85045; 86880

== ENCOUNTER → 2023-05-02 | Outpatient (CLI) | payer MEDICARE, BC, SELFPAY ==
--- NOTE | 2023-05-02 09:24 | BI_ITS ---
MAMMOGRAPHY - BILATERAL SCREENING 3-D TOMOSYNTHESIS REASON FOR EXAM: Female, 82 years old. Routine screening PERTINENT HISTORY: No significant family history. TECHNIQUE: 2-D mammograms and 3-D Tomosynthesis of the breast (s) were performed. CAD was performed. COMPARISON: 04/28/2022 FINDINGS: The breast composition is heterogeneously dense that can obscure small breast masses. Scattered benign vascular calcifications are seen. No dense spiculated masses or suspicious microcalcifications are identified. No architectural distortion is identified. There is no skin thickening or retraction. There has been no significant change since the prior study. BI/SCRN MAMM (CAD)W/LOAN BILAT IMPRESSION: No mammographic signs of malignancy. Routine yearly mammograms recommended. ASSESSMENT CATEGORY: BIRADS Category 2: Benign. A letter regarding these results will be sent to the patient by the facility within 30 days. FOLLOW UP RECOMMENDATION: Yearly follow up mammogram recommended. (A) Approximately 10% of breast cancers are not detected by mammography. A normal mammogram should not delay biopsy of a clinically suspicious abnormality. Electronically Signed: Abel Matthews MD at 11:24 EDT ,
--- NOTE | 2023-05-02 09:34 | BD_ITS ---
STUDY: DUAL ENERGY X-RAY ABSORPTIOMETRY / DXA REASON FOR EXAM: Female, 83 years old. [id number] TECHNIQUE: Bone Mineral Density (BMD) measurements of lumbar spine and bilateral hips were obtained. COMPARISON: Comparison is made with prior study April 27, 2021. FINDINGS: Lumbar Spine (L1-L4): g/cm2 (0.947) / T-score (-0.9) / Z-score (2.0) Findings are suggestive of normal bone density with a low fracture risk. Left Femur Total: g/cm2 (0.535) / T-score (-3.3) / Z-score (-1.0) Left Femoral Neck: g/cm2 (0.478) / T-score (-3.3) / Z-score (-0.8) Right Femur Total: g/cm2 (0.480) / T-score (-3.8) / Z-score (-1.5) Right Femoral Neck: g/cm2 (0.410) / T-score (-4.0) / Z-score (-1.4) The T-Scores on the most recent prior examination were: Lumbar Spine (L1-L4): There has been improvement of bone density since the previous examination. Left Femur Total: which represents an improvement of 3.5%. Right Femur Total: which represents a worsening of 2.3%. BD/Dexa Bone Density Study IMPRESSION: The patient is considered osteoporotic as outlined below according to World Diallo Organization (WHO) criteria with a high fracture risk. There has been improvement of bone density since the previous examination. Reference Information: The T-score is the number of standard deviations above or below the standard which is normal for young adults at their peak bone mineral density. The World Health Organization (WHO) interprets the T-scores as follows: Above -1 Normal bone density Between -1 and -2.5 Osteopenia Equal to / or below -2.5 Osteoporosis As a practical clinical guideline, osteopenia may be graded as follows: Mild -1 through -1.5 Moderate -1.6 through -2.0 Severe -2.1 through -2.4 The Z-score is the number of standard deviations above or below age-matched controls. A Z-score of less than -1.5 would be considered abnormal. References: 1. NIH Osteoporosis and Related Bone Diseases www osteo.org 2. International Society for Clinical Densitometry www iscd.org 3. National Osteoporosis Foundation www nof.org Electronically Signed: Per Frye MD at 11:16 EDT ,
== END | disposition home or self-care (01) ==
LOC: OPBD 09:23
PROVIDERS: PCP Nurse Practitioner Family; Referring Provider Nurse Practitioner Family; Visit Provider Nurse Practitioner Family
DX: Z78.0 Asymptomatic menopausal state (principal); Z12.31 Encounter for screening mammogram for malignant neoplasm of breast
CPT/HCPCS: 77063; 77067; 77080

== ENCOUNTER 2023-05-09 07:06 | Emergency (ER) | payer MEDICARE, BC, SELFPAY ==
[2023-05-09 07:08] VITALS: BP 134/68; PULSE 95; RESP 14; TEMP 36.3; O2SAT 100
--- NOTE | 2023-05-09 07:17 | EKG12_ITS ---
Test Reason : PALP Blood Pressure : / mmHG Vent. Rate : 094 BPM Atrial Rate : 094 BPM P-R Int : 144 ms QRS Dur : 090 ms QT Int : 372 ms P-R-T Axes : 085 064 078 degrees QTc Int : 465 ms Normal sinus rhythm Nonspecific ST abnormality Abnormal ECG Confirmed by VISHNU OCASIO, RONALDO ([id number]), assistant production editor DELTA MCCOY ([id number]) on 05/10/2023 2:22:36 PM Referred By: DEANGELO Confirmed By:RONALDO MARES MD
[2023-05-09 07:18] VITALS: BP 141/69; PULSE 93; RESP 20; BMI 20.9
--- NOTE | 2023-05-09 07:18 | EX.ED.DYSGE1 ---
HPI History of Present Illness Chief Complaint: Palpitations Informant: patient Narrative Narrative: Presents the ED presents generalized feeling feeling well since 7 PM last night. There is possible feelings of palpitations. Patient denies recent cough denies headache fevers. States slight chills. Denies chest or abdominal pain. Denies nausea, vomiting, diarrhea. Denies urinary symptoms. 3 weeks ago felt similar, called her [facility] for which she follows her blood pressure was told to keep a log of her blood pressure. This morning her blood pressure 103 over 50s. She just states she is not feeling well therefore came for evaluation has appoint with cardiology next week. She is keeping a log of her blood pressures. Denies any myalgias. Prior similar symptoms: Yes PFSH [facility] Medical History Circumscribed scleroderma Essential hypertension Hyperlipidemia Hypothyroidism Mitral valve annular calcification Osteoporosis Secondary pulmonary arterial hypertension Home Medications alendronate 70 mg tablet 70 mg PO QWEEK 03/01/22 [History Last Taken Unknown] cholecalciferol (vitamin D3) 50 mcg (2,000 unit) capsule 50 mcg PO DAILY 03/01/22 [History Last Taken Unknown] multivitamin 1 tab PO DAILY 03/01/22 [History Last Taken Unknown] multivitamin with minerals (Hair,Skin and Nails tablet) 1 tab PO DAILY 03/01/22 [History Last Taken Unknown] omega-3 fatty acids-fish oil 340 mg-1,000 mg capsule (Fish Oil) 1 cap PO DAILY 03/01/22 [History Last Taken Unknown] vitamin B complex 1 tab PO DAILY 03/01/22 [History Last Taken Unknown] vitamins A,C,M-zuuy-phwxkn 4,296 mcg-226 mg-90 mg capsule (PreserVision AREDS) 1 cap PO BID 03/01/22 [History Last Taken Unknown] dqzacnf-mvhsoixywtdeb-vuitkcsp 250 mg-250 mg-65 mg tablet (Excedrin Extra Strength) 1 tab PO ONCE PRN 03/03/22 [History Last Taken Unknown] naproxen sodium 220 mg capsule (Aleve) 220 mg PO BID PRN 03/03/22 [History Last Taken Unknown] propylene glycol 0.6 % eye drops (Systane Balance) 1 drp ophthalmic (eye) DAILY PRN 03/03/22 [History Last Taken Unknown] calcium carbonate 500 mg-vitamin D3 10 mcg (400 unit) tablet (Calcium 500 + D) 1 tab PO DAILY 06/01/22 [History Last Taken Unknown] amlodipine 2.5 mg tablet 2.5 mg PO DAILY 12/29/22 [History Last Taken Unknown] levothyroxine 88 mcg tablet (Synthroid) 88 mcg PO DAILY 12/29/22 [History Last Taken Unknown] Allergy/AdvReac Type Severity Reaction Status Date / Time Sulfa (Sulfonamide Allergy UNKNOWN Verified 05/09/23 07:07 Antibiotics) Family History Father Cancer Mother Hypertension Heart disease CHF COPD (chronic obstructive pulmonary disease) Brother Cancer Surgical History History of cataract surgery Social History Smoking Status: Never smoker alcohol intake: never substance use type: does not use caffeine: Yes Type: coffee ROS ROS ED Constitutional Constitutional ED: Denies chills, fever(s) or sweats Eyes Eyes: Denies change in vision ENT ENT ED: Denies dysphagia or sore throat Cardiovascular Cardiovascular: Reports palpitations; Denies chest pain, leg edema or racing heartbeat Respiratory/Chest Respiratory/Chest: Denies cough, dyspnea or dyspnea on exertion Gastrointestinal Gastrointestinal: Denies abdominal pain, diarrhea, nausea or vomiting Genitourinary Genitourinary ED: Denies dysuria, hematuria or urinary frequency Musculoskeletal Musculoskeletal: Denies back pain, extremity pain, myalgias or neck pain Integumentary Denies rash or wounds Neurologic Neurologic: Denies headache(s), paresthesias or weakness EXAM Physical Exam Const Vital Signs: 05/09/23 07:08 05/09/23 07:18 05/09/23 09:47 Temperature 97.3 F L Temperature Source Temporal Pulse Rate 95 93 81 Respiratory Rate 14 20 H 20 H Blood Pressure 134/68 H 141/69 H 139/74 H Blood Pressure Mean 90 93 95 Pulse Ox 100 99 Oxygen Delivery Method Room Air Room Air Room Air 05/09/23 09:47 Temperature Temperature Source Pulse Rate 81 Respiratory Rate 20 H Blood Pressure 139/74 H Blood Pressure Mean Pulse Ox 99 Oxygen Delivery Method Positive well nourished and well developed General Appearance ED: well developed and NAD HEENT Reports moist mucous membranes normocephalic and atraumatic Eyes PERRL, EOMs intact bilaterally and conjunctivae normal General Eye ED: Yes normal appearance of both eyes Neck no lymphadenopathy and supple General: Negative for tenderness Chest Wall Chest: Negative for tenderness Resp normal respiratory effort and normal air movement Effort and Inspection: symmetric chest movement; Negative for respiratory distress Cardio regular rate, regular rhythm and no murmurs Peripheral Pulses: pulses 2+ throughout GI normal to inspection, nondistended, normoactive bowel sounds and non-tender Palpation: Negative for guarding or rebound tenderness present Back/Spine no CVA tenderness and no thoracic nor lumbar tenderness Extremity normal to inspection General Extremety ED: Negative for edema or tenderness General Extremity: Negative for edema Neuro oriented x3 and no sensory deficits noted Sensorium / Orientation: awake and alert Skin no rashes or lesions noted and no wounds MDM MDM MDM Narrative Medical decision making narrative: Interventions / MDM: Differential diagnosis: Viral syndrome Diagnosis considered but do not suspect: My EKG interpretation: Sinus rhythm 94, no ST changes isolated T wave version aVL, nonspecific. Imaging independently reviewed and interpreted by myself: N/A External documents reviewed: N/A Test considered but not ordered:N/A ED course: Patient blood pressure normotensive on arrival. Nonspecific complaints possible palpitations. None currently. EKG sinus rhythm with nonspecific findings. We will check basic labs and urine. She declines COVID and influenza screening at this time. 0935: Labs since the state will slightly sodium 132 that is low. She was given normal saline. Electrolytes are all normal all otherwise. Urine had slight leukocytes and rare bacteria. Urine culture sent. She does not have any urine symptoms. Therefore would not treat unless culture is positive. Discussed likely early viral syndrome. Blood pressure remained stable. She is keeping a log for her cardiology team. She will follow-up with her doctors as an outpatient with strict return precautions. All questions were answered. Re-evaluation: stable Disposition discussed with patient/family/significant other: Patient Case discussed with consulting clinician: N/A This note was generated with [employer] dictation software. It may contain incorrect words, spelling, and punctuation that were not noted in checking the note before signing. Lab Data Attestation: I reviewed the patient's lab results. Labs: Laboratory Results - last 24 hr 07/25/23 07/25/23 07:30 08:45 WBC 11.8 H RBC 3.98 L Hgb 12.9 Hct 37.2 MCV 93.5 MCH 32.4 H MCHC 34.7 RDW Std Deviation 45.4 H RDW Coeff of Rhina 13.2 Plt Count 308 MPV 9.8 Immature Gran % (Auto) 0.300 Neut % (Auto) 86.8 H Lymph % (Auto) 6.8 L Ward % (Auto) 5.8 Eos % (Auto) 0.0 Baso % (Auto) 0.3 Absolute Neuts (auto) 10.3 H Absolute Lymphs (auto) 0.80 L Nucleated RBC % 0 Sodium 132 L Potassium 4.4 Chloride 99 Carbon Dioxide 28.0 Anion Gap 5 BUN 16 Creatinine 0.79 Estim Creat Clear Calc 34.02 Est GFR (MDRD) Af Amer 89 Est GFR (MDRD) Non-Af 74 BUN/Creatinine Ratio 20.3 H Glucose 123 H Calcium 8.6 Urine Color Jailyn Urine Clarity Sl. Cloudy Urine pH 6.5 Ur Specific [place] 1.010 Urine Protein 15 H Urine Glucose (UA) Normal Urine Ketones Negative Urine Occult Blood Negative Urine Nitrite Negative Urine Bilirubin 1 H Urine Urobilinogen 1 H Ur Leukocyte Esterase 100 H Urine RBC 0 SEEN Urine WBC 0-5 SEEN Ur Squamous Epith Cells 0-5 SEEN Urine Bacteria RARE Urine Mucus 0 SEEN Discharge Plan Triage Chief Complaint: Palpitations ED Provider: Hieu Luis Dx/Rx/DC Orders Clinical Impression: Acute viral syndrome, Acute hyponatremia Instructions: ED Dehydration (Adult), ED Hyponatremia Prescriptions: No Action cholecalciferol (vitamin D3) 50 mcg (2,000 unit) capsule 50 mcg PO DAILY alendronate 70 mg tablet 70 mg PO QWEEK Fish Oil 340-1,000 mg capsule 1 cap PO DAILY Hair,Skin and Nails Tablet 1 tab PO DAILY multivitamin Tablet 1 tab PO DAILY PreserVision AREDS 14,320-226-200 zqbf-eh-hymf capsule 1 cap PO BID vitamin B complex Tablet 1 tab PO DAILY levothyroxine [Synthroid] 88 mcg tablet 88 mcg PO DAILY Systane Balance 0.6 % drops 1 drp ophthalmic (eye) DAILY PRN Excedrin Extra Strength 250-250-65 mg tablet 1 tab PO ONCE PRN naproxen sodium [Aleve] 220 mg capsule 220 mg PO BID PRN calcium carbonate-vitamin D3 [Calcium 500 + D] 500 mg-10 mcg (400 unit) tablet 1 tab PO DAILY amlodipine 2.5 mg tablet 2.5 mg PO DAILY Primary Care Provider: Martina Conner Referrals: Martina Conner, [facility] [Primary Care Provider] - 3-5 Days if not improving Activity Restrictions/Additional Instructions: Laboratory studies with a sodium 132 status post IV fluids. Normal kidney function normal hemoglobin of 12.9. Urine sent for culture you have no urine symptoms if positive you will be contacted for treatment. Your blood pressure has been stable in the ED. EKG no acute findings. Follow-up with your doctors as an outpatient. Return for any new or worsening symptoms that are concerning. Disposition Disposition: Home, Self Care Discharge Date/Time: 05/09/23 09:55
[2023-05-09 07:41] LABS: Absolute Neutrophil Count 10.3 X10^3/uL (2.0-7.7); Basophil# 0.03 X10^3/uL; Basophil% 0.3 % (0-1); Hematocrit 37.2 % (37-47); Hemoglobin 12.9 g/dL (12.0-15.0); Lymphocyte % 6.8 % (19-41); Mean Corp Hgb Conc 34.7 g/dL (32-36); Mean Corpuscular Hgb 32.4 pg (27.0-32.0); Mean Corpuscular Volume 93.5 fL (81-99); Mean Platelet Vol. 9.8 fl (6.2-12.0); Monocyte# 0.69 X10^3/uL; Monocyte% 5.8 % (0-10); NRBC Flagged by Analyzer 0 % (0-5); Neutrophil # 10.29 X10^3/uL (2.7-7.7); Neutrophil % 86.8 % (47-70); Platelet Count 308 K/mm3 (150-450); RBC Distribution Width CV 13.2 % (11.6-14.6); RBC Distribution Width SD 45.4 fl (35.1-43.9); Red Blood Count 3.98 M/mm3 (4.2-5.4); White Blood Count 11.8 K/mm3 (4.4-11.0)
[2023-05-09 07:55] LABS: Anion Gap 5 (5-15); BUN 16 mg/dL (7-18); BUN/Creat Ratio 20.3 RATIO (10-20); Calcium,Total 8.6 mg/dL (8.5-10.1); Chloride 99 mmol/L (98-107); Creatinine, Serum 0.79 mg/dL (0.55-1.02); EST Glomerular Filtration Rate 74 mL/min (>60); Est Glom Filt Rate - Afr Amer 89 mL/min (>60); Estimated Creatinine Clearance 34.02 ml/min; Glucose 123 mg/dL (74-106); Potassium 4.4 mmol/L (3.5-5.1); Sodium Level 132 mmol/L (136-145)
[2023-05-09 08:52] LABS: Mucous, Urine 0 SEEN /hpf (<or=2+); Red Blood Cells-Urine 0 SEEN /hpf (0-5)
[2023-05-09 08:55] LABS: Color, Urine Amber (Yellow); Glucose, Dipstick Normal (Normal); Ketone-Dipstick Negative (Negative); Leukocyte Esterase-Dipstick 100 /ul (Negative); Nitrite-Dipstick Negative (Negative); Occult Blood-Urine Negative /ul (Negative); Protein-Dipstick 15 mg/dl (Negative); Urine Clarity Sl. Cloudy (Clear); Urine Urobilinogen 1 mg/dl (Normal); Urine pH 6.5 (5.0 - 8.0)
[2023-05-09 09:07] LABS: Urine Bilirubin Dipstick 1 mg/dL (Negative)
[2023-05-09 09:10] LABS: Bacteria RARE /hpf (None Seen); Squamous Epithelial Cells - UA 0-5 SEEN /hpf (5-10); White Blood Cells 0-5 SEEN /hpf (0-5)
[2023-05-09 09:47] VITALS: BP 139/74; PULSE 81; RESP 20; O2SAT 99
== END 2023-05-09 09:55 | disposition home or self-care (01) ==
PROVIDERS: Emergency Provider Emergency Medicine; PCP Nurse Practitioner Family; Visit Provider Emergency Medicine
DX: B34.9 Viral infection, unspecified (principal); E87.1 Hypo-osmolality and hyponatremia
CPT/HCPCS: 80048; 81001; 85025; 87086; 93005; 96360; 99284; J7040; A4216

== ENCOUNTER 2023-05-13 09:02 | Inpatient (IN) | payer MEDICARE, BC, SELFPAY ==
[2023-05-13] VITALS (7 sets, daily range): BP systolic 109–155; BP diastolic 61–88; PULSE 71–98; RESP 14–18; TEMP 36.6–36.9; O2SAT 95–100; BMI 20.5; BMI 20.8
[2023-05-13] MEDS: 0.9% Normal Saline 1,000 ML 150 ML IV ×3 (09:05→21:19)
--- NOTE | 2023-05-13 09:27 | EX.ED.DYSGE1 ---
HPI History of Present Illness Chief Complaint: Abd Pain Informant: patient Onset/Context/Timing Onset: Days Context: Gradual Onset Timing: Intermittent Current Severity: Moderate Maximum Severity: Moderate Narrative Narrative: Patient presents with mid lower abdominal pain that is been ongoing the last couple days. She denies urinary or bowel symptoms. No fever or chills. [facility] Medical History Circumscribed scleroderma Essential hypertension Hyperlipidemia Hypothyroidism Mitral valve annular calcification Osteoporosis Secondary pulmonary arterial hypertension Home Medications alendronate 70 mg tablet 70 mg PO QWEEK 03/01/22 [History Last Taken Unknown] cholecalciferol (vitamin D3) 50 mcg (2,000 unit) capsule 50 mcg PO DAILY 03/01/22 [History Last Taken Unknown] multivitamin 1 tab PO DAILY 03/01/22 [History Last Taken Unknown] multivitamin with minerals (Hair,Skin and Nails tablet) 1 tab PO DAILY 03/01/22 [History Last Taken Unknown] omega-3 fatty acids-fish oil 340 mg-1,000 mg capsule (Fish Oil) 1 cap PO DAILY 03/01/22 [History Last Taken Unknown] vitamin B complex 1 tab PO DAILY 03/01/22 [History Last Taken Unknown] vitamins A,C,W-yuuq-tdtgmg 4,296 mcg-226 mg-90 mg capsule (PreserVision AREDS) 1 cap PO BID 03/01/22 [History Last Taken Unknown] gfpkhan-yowtvopgdjqrj-cuuxguun 250 mg-250 mg-65 mg tablet (Excedrin Extra Strength) 1 tab PO ONCE PRN pain 03/03/22 [History Last Taken Unknown] naproxen sodium 220 mg capsule (Aleve) 220 mg PO BID PRN pain 03/03/22 [History Last Taken Unknown] propylene glycol 0.6 % eye drops (Systane Balance) 1 drp ophthalmic (eye) DAILY PRN dry eye(s) 03/03/22 [History Last Taken Unknown] calcium carbonate 500 mg-vitamin D3 10 mcg (400 unit) tablet (Calcium 500 + D) 1 tab PO DAILY 06/01/22 [History Last Taken Unknown] amlodipine 2.5 mg tablet 2.5 mg PO DAILY 12/29/22 [History Last Taken Unknown] levothyroxine 88 mcg tablet (Synthroid) 88 mcg PO DAILY 12/29/22 [History Last Taken Unknown] Allergy/AdvReac Type Severity Reaction Status Date / Time Sulfa (Sulfonamide Allergy UNKNOWN Verified 05/13/23 09:05 Antibiotics) Family History Father Cancer Mother Hypertension Heart disease CHF COPD (chronic obstructive pulmonary disease) Brother Cancer Surgical History History of cataract surgery Social History Smoking Status: Never smoker alcohol intake: never substance use type: does not use caffeine: Yes Type: coffee ROS ROS ED Constitutional Constitutional ED: Denies chills or fever(s) Eyes Eyes: Denies change in vision or discharge from eye(s) ENT ENT ED: Denies discharge from eye(s), rhinorrhea or sore throat Cardiovascular Cardiovascular: Denies chest pain or palpitations Respiratory/Chest Respiratory/Chest: Denies cough or dyspnea Gastrointestinal Gastrointestinal: Reports abdominal pain; Denies diarrhea, nausea or vomiting Genitourinary Genitourinary ED: Denies dysuria Musculoskeletal Musculoskeletal: Denies back pain or extremity pain Integumentary Denies Abrasions or rash Neurologic Neurologic: Denies headache(s) or weakness Psychiatric Psychiatric: Denies anxiety or depression Allergic/Immunologic Allergic/Immunologic ED: Denies lip swelling or urticaria EXAM Physical Exam Const Vital Signs: 05/13/23 09:03 05/13/23 11:02 Temperature 97.8 F Temperature Source Temporal Pulse Rate 98 75 Respiratory Rate 14 18 Blood Pressure 142/70 H 155/88 H Blood Pressure Mean 94 110 Pulse Ox 99 95 Oxygen Delivery Method Room Air Room Air Positive well nourished and well developed General Appearance ED: well developed HEENT Reports normocephalic and head/scalp atraumatic Eyes EOMs intact bilaterally Neck supple Chest Wall inspection of chest normal and palpation of chest normal Resp normal respiratory effort and clear to auscultation bilaterally Cardio regular rate and regular rhythm GI GI Narrative: Abdomen soft with hypoactive bowel sounds. No focal tenderness. No palpable masses. Palpation: soft Extremity normal to inspection Neuro oriented x3 and no sensory deficits noted Sensorium / Orientation: alert Psych mental status grossly normal Skin no rashes or lesions noted MDM MDM MDM Narrative Medical decision making narrative: Patient given 2 mg of morphine along with 4 mg of Zofran and IV fluids. Labwork obtained to evaluate for leukocytosis, anemia, and electrolyte derangement. Urinalysis obtained to evaluate for infection/hematuria. CT scan of the abdomen pelvis with IV contrast obtained to evaluate for appendicitis, bowel obstruction, diverticulitis, cholecystitis. History & Record Review Discussion w/independent historian: Patient and Family Additional record(s) reviewed:: Prior ED visit and Prior labs Lab Data Attestation: I reviewed the patient's lab results. Labs: Laboratory Results - last 24 hr 05/13/23 05/13/23 09:30 10:50 WBC 15.0 H RBC 4.29 Hgb 14.2 Hct 39.0 MCV 90.9 MCH 33.1 H MCHC 36.4 H RDW Std Deviation 42.6 RDW Coeff of Rhina 13.0 Plt Count 359 MPV 10.3 Immature Gran % (Auto) 0.400 Neut % (Auto) 90.3 H Lymph % (Auto) 2.7 L [place] % (Auto) 4.3 Eos % (Auto) 2.0 Baso % (Auto) 0.3 Absolute Neuts (auto) 13.5 H Absolute Lymphs (auto) 0.40 L Nucleated RBC % 0 Sodium 126 L Potassium 3.9 Chloride 92 L Carbon Dioxide 24.0 Anion Gap 10 BUN 11 Creatinine 0.86 Estim Creat Clear Calc 39.56 Est GFR (MDRD) Af Amer 81 Est GFR (MDRD) Non-Af 67 BUN/Creatinine Ratio 12.8 Glucose 131 H Calcium 9.2 Total Bilirubin 6.20 H Direct Bilirubin 4.74 H AST 100 H ALT 111 H Alkaline Phosphatase 965 H Total Protein 7.4 Albumin 3.0 L Globulin 4.4 H Lipase 32 Urine Color Yellow Urine Clarity Sl. Cloudy Urine pH 7.0 Ur Specific [place] 1.010 Urine Protein 30 H Urine Glucose (UA) Normal Urine Ketones 5 H Urine Occult Blood 10 H Urine Nitrite Negative Urine Bilirubin 3 H Urine Urobilinogen 4 H Ur Leukocyte Esterase 25 H Urine RBC 0 SEEN Urine WBC 0 SEEN Ur Squamous Epith Cells 0 SEEN Urine Bacteria 0 SEEN Urine Mucus 0 SEEN Radiography Diagnostic Testing: Clinical Impression(s) from Imaging Studies Abdomen/Pelvis CT 05/13/23 10:40 IMPRESSION: 1. Abnormal intrahepatic and extrahepatic ductal dilatation secondary to probable 3 stack of obstructing gallstones in the distal common bile duct. Additionally, gallbladder dilatation containing 1.7 cm gallstone. 2. Sigmoid diverticulosis without diverticulitis. Electronically Signed: Nayan Ojeda MD at 11:12 EDT , ADDENDUM: 05/13/23 1123 IMPRESSION: 1. Abnormal intrahepatic and extrahepatic ductal dilatation secondary to probable 3 stack of obstructing gallstones in the distal common bile duct. Additionally, gallbladder dilatation containing 1.7 cm gallstone. 2. Sigmoid diverticulosis without diverticulitis. N.B. : The above Results were Read Back by Nayan Ojeda MD to Husam Joiner MD, and understanding confirmed on 05/13/2023 11:16:36 (ET). Electronically Signed: Nayan Ojeda MD at 11:12 EDT , Treatment and Re-Evaluation :: CBC was white count elevated to 15.0 with 90% neutrophils. Hemoglobin is 14.2. Chemistry studies other than a sodium low at 126. Her LFTs are abnormal including a total bili of 6.2, direct bili of 4.74, AST of 100, ALT of 100. Her alk phos is 965. Her lipase is normal at 32. Urinalysis is clean with no sign of infection. CT scan of the abdomen pelvis with IV contrast reveals abnormal intra and extrahepatic ductal dilatation secondary to 3 obstructing stones in the distal common bile duct. Gallbladder is dilated and contains a 1.7 cm stone. I spoke with Dr. Tobias, on-call for surgery. She reviewed the images and spoke with Dr. Beck. Plan will be admit to medicine and Dr. Beck will scope the patient for stone removal. Dr. Tobias said patient may then need an IR placed Tracey tube on Monday. Patient has received a dose of Zosyn. I will speak with hospitalist. Discharge Plan Triage Chief Complaint: Abd Pain ED Provider: Marisel Weiner Dx/Rx/DC Orders Clinical Impression: Choledocholithiasis Prescriptions: No Action cholecalciferol (vitamin D3) 50 mcg (2,000 unit) capsule 50 mcg PO DAILY alendronate 70 mg tablet 70 mg PO QWEEK Fish Oil 340-1,000 mg capsule 1 cap PO DAILY Hair,Skin and Nails Tablet 1 tab PO DAILY multivitamin Tablet 1 tab PO DAILY PreserVision AREDS 14,320-226-200 xrlq-md-yneh capsule 1 cap PO BID vitamin B complex Tablet 1 tab PO DAILY levothyroxine [Synthroid] 88 mcg tablet 88 mcg PO DAILY Systane Balance 0.6 % drops 1 drp ophthalmic (eye) DAILY PRN (Reason: dry eye(s)) Excedrin Extra Strength 250-250-65 mg tablet 1 tab PO ONCE PRN (Reason: pain) naproxen sodium [Aleve] 220 mg capsule 220 mg PO BID PRN (Reason: pain) calcium carbonate-vitamin D3 [Calcium 500 + D] 500 mg-10 mcg (400 unit) tablet 1 tab PO DAILY amlodipine 2.5 mg tablet 2.5 mg PO DAILY Primary Care Provider: Martina Conner Referrals: Martina Conner, [employer]ACHINE [employer]PA[employer]ER-C [Primary Care Provider] - Disposition Disposition: Acute Care Hospital [facility]
[2023-05-13 09:35] LABS: Absolute Neutrophil Count 13.5 X10^3/uL (2.0-7.7); Basophil# 0.05 X10^3/uL; Basophil% 0.3 % (0-1); Hemoglobin 14.2 g/dL (12.0-15.0); Lymphocyte % 2.7 % (19-41); Mean Corp Hgb Conc 36.4 g/dL (32-36); Mean Corpuscular Hgb 33.1 pg (27.0-32.0); Mean Corpuscular Volume 90.9 fL (81-99); Mean Platelet Vol. 10.3 fl (6.2-12.0); Monocyte# 0.64 X10^3/uL; Monocyte% 4.3 % (0-10); NRBC Flagged by Analyzer 0 % (0-5); Neutrophil # 13.53 X10^3/uL (2.7-7.7); Neutrophil % 90.3 % (47-70); POSITIVE DIFFERENTIAL YES; Platelet Count 359 K/mm3 (150-450); RBC Distribution Width SD 42.6 fl (35.1-43.9); Red Blood Count 4.29 M/mm3 (4.2-5.4)
[2023-05-13] MEDS: Ondansetron 4 MG/2 ML Vial IV (09:35)
[2023-05-13] MEDS: Morphine 2 MG/ML Syringe IV (09:35)
[2023-05-13 09:36] LABS: Differential Indicated SCAN CRITERIA MET
[2023-05-13 09:55] LABS: AST(SGOT) 100 U/L (15-37); Alanine Aminotransfer ALT/SGPT 111 U/L (13-56); Alkaline Phosphatase 965 U/L (45-117); Anion Gap 10 (5-15); BUN 11 mg/dL (7-18); BUN/Creat Ratio 12.8 RATIO (10-20); Bilirubin, Direct 4.74 mg/dL (0.00-0.30); Calcium,Total 9.2 mg/dL (8.5-10.1); Chloride 92 mmol/L (98-107); Creatinine, Serum 0.86 mg/dL (0.55-1.02); EST Glomerular Filtration Rate 67 mL/min (>60); Est Glom Filt Rate - Afr Amer 81 mL/min (>60); Estimated Creatinine Clearance 39.56 ml/min; Globulin 4.4 g/dL (2.2-4.2); Glucose 131 mg/dL (74-106); Lipase 32 U/L (13-75); Potassium 3.9 mmol/L (3.5-5.1); Protein, Total 7.4 g/dL (6.4-8.2); Sodium Level 126 mmol/L (136-145)
--- NOTE | 2023-05-13 10:40 | CT_ITS ---
We are attempting to reach an attending provider to discuss findings. An addendum with communication details will be sent when the communication is complete. EXAM: CT ABDOMEN AND PELVIS WITH INTRAVENOUS CONTRAST CLINICAL INDICATION: Abdominal pain x2 days. TECHNIQUE: Helically acquired images were obtained of the abdomen and pelvis with intravenous contrast. This CT exam was performed using one or more of the following dose reduction techniques: automated exposure control, adjustment of the mA and/or kV according to patient size, and/or use of iterative reconstruction technique. CONTRAST: IV 75mL Isovue-370 RADIATION DOSE: CTDIvol = 8.55 mGy, DLP = 311.61 mGy-cm COMPARISON: No relevant prior studies available. FINDINGS: LOWER THORAX: Unremarkable. Lung bases are clear. No cardiomegaly. No significant pericardial effusion. ABDOMEN: LIVER: Abnormal intrahepatic biliary ductal dilatation. GALLBLADDER AND BILE DUCTS: Gallbladder dilatation and 1.7 cm gallstone. Suspicious 3 stacked of gallstones in the distal common bile duct. PANCREAS: Unremarkable. No focal cystic or solid mass. SPLEEN: Unremarkable. Normal size without focal cystic or solid mass. ADRENALS: Unremarkable. No nodules. KIDNEYS AND URETERS: Unremarkable. Normal renal size and position. No hydronephrosis. STOMACH AND BOWEL: Large amount of macerated feces in the cecum. Diverticula in the sigmoid colon without diverticulitis. No stomach or bowel distention. PELVIS: APPENDIX: Normal. BLADDER: Unremarkable. REPRODUCTIVE: Unremarkable as visualized. No mass. ABDOMEN and PELVIS: INTRAPERITONEAL SPACE: Unremarkable. No ascites or other fluid collection. No free air. BONES/JOINTS: Mild degenerative anterolisthesis of L4 on L5. No suspicious lytic or blastic abnormality. SOFT TISSUES: Unremarkable. No discrete abdominal or pelvic wall hernia. VASCULATURE: Unremarkable. Abdominal aorta is non-dilated. LYMPH NODES: Unremarkable. No enlarged lymph nodes. CT/Abdomen/Pelvis W IV Cont ONLY IMPRESSION: 1. Abnormal intrahepatic and extrahepatic ductal dilatation secondary to probable 3 stack of obstructing gallstones in the distal common bile duct. Additionally, gallbladder dilatation containing 1.7 cm gallstone. 2. Sigmoid diverticulosis without diverticulitis. Electronically Signed: Nayan Ojeda MD at 11:12 EDT ,
[2023-05-13 10:58] LABS: Bacteria 0 SEEN /hpf (None Seen); Mucous, Urine 0 SEEN /hpf (<or=2+); Red Blood Cells-Urine 0 SEEN /hpf (0-5); Squamous Epithelial Cells - UA 0 SEEN /hpf (5-10); White Blood Cells 0 SEEN /hpf (0-5)
[2023-05-13 11:01] LABS: Color, Urine Yellow (Yellow); Glucose, Dipstick Normal (Normal); Ketone-Dipstick 5 mg/dl (Negative); Leukocyte Esterase-Dipstick 25 /ul (Negative); Nitrite-Dipstick Negative (Negative); Occult Blood-Urine 10 /ul (Negative); Protein-Dipstick 30 mg/dl (Negative); Urine Clarity Sl. Cloudy (Clear); Urine Urobilinogen 4 mg/dl (Normal)
[2023-05-13 11:02] LABS: Urine Bilirubin Dipstick 3 mg/dL (Negative)
--- NOTE | 2023-05-13 12:30 | HP.PCM.HOS_ITS ---
HPI - General General Date of Admission: 05/13/23 Date of Service: 05/13/23 Chief Complaint: abdominal pain HPI Narrative CHINMAY COTA, is a 83 F with a PMH as outlined who presents via the ED on 05/13/2023 with a complaint of abdominal pain which had been going on for several days. She was seen in the ER a few days ago with chest pain and palpitations; she was evaluated and dc'd home. She started having abdominal pain a few days ago which was mainly in the lower abdomen. Pain had no aggravating or relieving factors. She denied any associated fever or chills. Vitals in the ED were blood pressure 155/88, pulse rate of 75 respiratory rate of 18 with oxygen sats of 95% on room air. CBC showed hemoglobin of 14.2 with WBC of 15 and platelets of 359. Chemistry showed sodium of 126 and bicarb of 24 with creatinine of 0.86. Total bilirubin was elevated at 6.2 with a direct bilirubinemia of 4.74. AST and ALT were also elevated and ALP was markedly elevated at 965, indicating cholestatic pattern. CT abdomen and pelvis showed gallbladder dilatation and 1.7 cm gallstone with suspicious 3 stacked excessive gallstones in the distal common bile duct. She also had abnormal intrahepatic biliary ductal dilatation. She has been admitted to be managed for acute cholecystitis with choledocholithiasis. [facility] Medical History (Updated 05/14/23 @ 07:13 by Annie Son) Circumscribed scleroderma Essential hypertension Hyperlipidemia Hypertension Hypothyroidism Mitral valve annular calcification Osteoporosis Secondary pulmonary arterial hypertension Stroke/cerebrovascular accident Home Medications alendronate 70 mg tablet 70 mg PO QWEEK OSTEOPOROSIS 03/01/22 [History Last Taken Unknown] cholecalciferol (vitamin D3) 50 mcg (2,000 unit) capsule 50 mcg PO DAILY 03/01/22 [History Last Taken Unknown] multivitamin 1 tab PO DAILY SUPPLEMENT 03/01/22 [History Last Taken Unknown] multivitamin with minerals (Hair,Skin and Nails tablet) 1 tab PO DAILY SUPPLEMENT 03/01/22 [History Last Taken Unknown] vitamin B complex 1 tab PO DAILY SUPPLEMENT 03/01/22 [History Last Taken Unknown] vitamins A,C,B-ccqn-gdrnyy 4,296 mcg-226 mg-90 mg capsule (PreserVision AREDS) 1 cap PO BID EYE HEALTH 03/01/22 [History Last Taken Unknown] naetakx-axcmitybotomo-sdobnqtm 250 mg-250 mg-65 mg tablet (Excedrin Extra Strength) 1 tab PO ONCE PRN pain 03/03/22 [History Last Taken Unknown] naproxen sodium 220 mg capsule (Aleve) 220 mg PO BID PRN pain 03/03/22 [History Last Taken Unknown] propylene glycol 0.6 % eye drops (Systane Balance) 1 drp ophthalmic (eye) DAILY PRN dry eye(s) 03/03/22 [History Last Taken Unknown] calcium carbonate 500 mg-vitamin D3 10 mcg (400 unit) tablet (Calcium 500 + D) 1 tab PO DAILY SUPPLEMENT 06/01/22 [History Last Taken Unknown] amlodipine 2.5 mg tablet 2.5 mg PO DAILY BLOOD PRESSURE 12/29/22 [History Last Taken Unknown] levothyroxine 88 mcg tablet (Synthroid) 88 mcg PO DAILY THYROID 12/29/22 [History Last Taken Unknown] omega-3 fatty acids 1,000 mg PO DAILY SUPPLEMENT 05/13/23 [History Last Taken Unknown] Allergy/AdvReac Type Severity Reaction Status Date / Time Sulfa (Sulfonamide Allergy UNKNOWN Verified 05/13/23 09:05 Antibiotics) Family History Father Cancer Mother Hypertension Heart disease CHF COPD (chronic obstructive pulmonary disease) Brother Cancer Surgical History History of cataract surgery Social History Smoking Status: Never smoker alcohol intake: never substance use type: does not use caffeine: Yes Type: coffee ROS Constitutional Constitutional: Reports anorexia, fatigue, malaise and weakness; Denies chills or fever(s) Eyes Eyes: Denies change in vision ENT HEENT: Denies dysphagia or headache(s) Cardiovascular Cardiovascular: Denies chest pain, dyspnea on exertion, lightheadedness, orthopnea, palpitations, rapid heart rate or syncope Respiratory/Chest Respiratory/Chest: Denies cough, dyspnea, shortness of breath at rest or shortness of breath with exertion Gastrointestinal Gastrointestinal: Reports abdominal pain; Denies diarrhea, nausea or vomiting Genitourinary Genitourinary: Denies burning urination, difficulty urinating or dysuria Musculoskeletal Musculoskeletal: Denies arthralgias or joint pain Neurologic Neurologic: Denies confusion, dizziness, focal weakness, headache(s), numbness, seizures or tremor(s) Psychiatric Psychiatric: Denies anxiety or depression Endocrine Endocrinology: Denies change in body appearance Vital Signs Vital Signs Vital Signs: 05/13/23 09:03 05/13/23 11:02 Temperature 97.8 F Temperature Source Temporal Pulse Rate 98 75 Respiratory Rate 14 18 Blood Pressure 142/70 H 155/88 H Blood Pressure Mean 94 110 Pulse Ox 99 95 Oxygen Delivery Method Room Air Room Air Weight Weight: 115 lb 14.4 oz Body Mass Index (BMI) 20.5 Physical Exam Const alert, oriented x3 and no apparent distress General Appearance: cooperative HEENT normocephalic, hearing grossly normal bilaterally and moist oral mucous membranes Mouth: oral and palatal mucosa normal Eyes PERRL, EOMs intact bilaterally and conjunctivae normal Neck no lymphadenopathy and supple Resp normal respiratory effort, no retractions, no use of accessory muscles and clear to auscultation bilaterally Cardio regular rate, regular rhythm, S1 normal heart sound, S2 normal heart sound and no murmurs GI normal to inspection, nondistended, normoactive bowel sounds GI Narrative: abdomen soft, RUQ tenderness, positive Felix's sign Extremity normal to inspection, full ROM and no clubbing, cyanosis or edema Neuro oriented x3, CN's II-XII intact bilaterally, moves all extremities and no focal motor deficits Sensorium / Orientation: awake and alert Psych affect normal Results Lab / Micro Data 05/14/23 05:45 05/14/23 05:45 Labs: Laboratory Results - last 24 hr 05/13/23 09:30: WBC 15.0 H, RBC 4.29, Hgb 14.2, Hct 39.0, MCV 90.9, MCH 33.1 H, MCHC 36.4 H, RDW Std Deviation 42.6, RDW Coeff of Rhina 13.0, Plt Count 359, MPV 10.3, Immature Gran % (Auto) 0.400, Neut % (Auto) 90.3 H, Lymph % (Auto) 2.7 L, [place] % (Auto) 4.3, Eos % (Auto) 2.0, Baso % (Auto) 0.3, Absolute Neuts (auto) 13.5 H, Absolute Lymphs (auto) 0.40 L, Nucleated RBC % 0, Sodium 126 L, Potassium 3.9, Chloride 92 L, Carbon Dioxide 24.0, Anion Gap 10, BUN 11, Creatinine 0.86, Estim Creat Clear Calc 39.56, Est GFR (MDRD) Af Amer 81, Est GFR (MDRD) Non-Af 67, BUN/Creatinine Ratio 12.8, Glucose 131 H, Calcium 9.2, Total Bilirubin 6.20 H, Direct Bilirubin 4.74 H, AST 100 H, ALT 111 H, Alkaline Phosphatase 965 H, Total Protein 7.4, Albumin 3.0 L, Globulin 4.4 H, Lipase 32 05/13/23 10:50: Urine Color Yellow, Urine Clarity Sl. Cloudy, Urine pH 7.0, Ur Specific [place] 1.010, Urine Protein 30 H, Urine Glucose (UA) Normal, Urine Ketones 5 H, Urine Occult Blood 10 H, Urine Nitrite Negative, Urine Bilirubin 3 H, Urine Urobilinogen 4 H, Ur Leukocyte Esterase 25 H, Urine RBC 0 SEEN, Urine WBC 0 SEEN, Ur Squamous Epith Cells 0 SEEN, Urine Bacteria 0 SEEN, Urine Mucus 0 SEEN Radiology Impression Abdomen/Pelvis CT 05/13/23 10:40 IMPRESSION: 1. Abnormal intrahepatic and extrahepatic ductal dilatation secondary to probable 3 stack of obstructing gallstones in the distal common bile duct. Additionally, gallbladder dilatation containing 1.7 cm gallstone. 2. Sigmoid diverticulosis without diverticulitis. Electronically Signed: Nayan Ojeda MD at 11:12 EDT Reading Location ID and State: [id number] / [place] , Service support , ADDENDUM: 05/13/23 1123 IMPRESSION: 1. Abnormal intrahepatic and extrahepatic ductal dilatation secondary to probable 3 stack of obstructing gallstones in the distal common bile duct. Additionally, gallbladder dilatation containing 1.7 cm gallstone. 2. Sigmoid diverticulosis without diverticulitis. N.B. : The above Results were Read Back by Nayan Ojeda MD to Husam Joiner MD, and understanding confirmed on 05/13/2023 11:16:36 (ET). Electronically Signed: Nayan Ojeda MD at 11:12 EDT , Assessment & Plan Assessment/Plan (1) Choledocholithiasis: (2) Cholecystitis: PLAN: Plan #Acute cholecystitis with cholelithiasis and choledocholithiasis * admit to med surg * has elevated liver enzymes, with elevated bilirubin, showing a cholestatic picture. * CT abdomen and pelvis showed bnormal intrahepatic and extrahepatic ductal dilatation secondary to probable 3 stack of obstructing gallstones in the distal common bile duct. Additionally, gallbladder dilatation containing 1.7 cm gallstone. * consult general surgery and GI; ED doctor spoke to GI, who will do an ERCP on Monday to sweep out the stone. To have cholecystostomy tube inserted on Monday * started on IV zosyn in the ED, will continue * keep NPO * hydrate gently with iVF * * #Hyponatremia * sodium is 126. * likely due to dechydration from decreased intake * hydrate with IVF and trend sodium * if it remains low, will get full workup for hyponatremia including FeNa and FeUrea as well as urine sodium. * * #Hypertension: on amlodipine #Hypothyroidism:on synthroid DVT prophylaxis:lovenox Code status: full code * Patient and daughter counseled extensively about different types of CODE STATUS including full code, DNR CCA and DNR CCA. * Patient elects to be full code. * Total sqjj-ob-bzea time 17 minutes. Charges/Coding Visit Charges Inpatient E&M: 01855 Init Hosp L3 Procedures Hospitalists Procedures: 84822 Advncd Care Plan 30 Min
[2023-05-13] MEDS: 0.9% Saline Lock 10 ML Syringe IV (14:00)
--- NOTE | 2023-05-13 20:35 | EX.PCM.CON.S ---
Assessment & Plan Assessment/Plan (1) Biliary obstruction: (2) Cholecystitis: (3) Choledocholithiasis: PLAN: Plan Reviewed CT of pelvis with the patient. Patient does have biliary obstruction due to multiple stones in the common bile duct also has several stones in her gallbladder. There not appear to be causing obstruction of the gallbladder currently. Dr. Beck has been consulted will await ERCP. Did discuss with patient 2 options today with the gallbladder would be lap nelson versus cholecystostomy tube first and then a lap nelson in the future. Discussed with patient that she does have about a 2 cm stone that likely will not go anywhere however she does have several smaller stones that may again go into her common bile duct and cause the same problem in the future. We will discuss treatment of the gallbladder further with patient once ERCP is completed. Continue IV Tina Tobias M.D. Pager: [phone] [facility] [address] [place] [address], [address] [place] [id number] Office: [phone] HPI Consult Data Date of Consult: 05/14/23 HPI Narrative Reason for Consultation: Cholecystitis, cholelithiasis HPI Narrative: CHINMAY COTA, is a 83 F who presents to the ER due to left mid abdominal pain. Patient states she has had this pain for 2 to 3 weeks however the pain had gotten worse and she was finally tired of dealing with it. Patient denies any nausea or vomiting with it. Patient states over the last 2 or 3 weeks she is eating maybe a little less otherwise been eating fairly normally except for the last couple days. Patient CT abdomen pelvis showed choledocholithiasis and cholelithiasis with enlarged gallbladder. Patient's white blood count is 15, LFTs were all elevated with a total bilirubin of 6.2 and a direct of 4.7. Patient denies ever having previous episodes like this before 2 to 3 weeks ago. [facility] Medical History (Updated 05/14/23 @ 07:13 by Annie Son) Circumscribed scleroderma Essential hypertension Hyperlipidemia Hypertension Hypothyroidism Mitral valve annular calcification Osteoporosis Secondary pulmonary arterial hypertension Stroke/cerebrovascular accident Home Medications alendronate 70 mg tablet 70 mg PO QWEEK OSTEOPOROSIS 03/01/22 [History Last Taken Unknown] cholecalciferol (vitamin D3) 50 mcg (2,000 unit) capsule 50 mcg PO DAILY 03/01/22 [History Last Taken Unknown] multivitamin 1 tab PO DAILY SUPPLEMENT 03/01/22 [History Last Taken Unknown] multivitamin with minerals (Hair,Skin and Nails tablet) 1 tab PO DAILY SUPPLEMENT 03/01/22 [History Last Taken Unknown] vitamin B complex 1 tab PO DAILY SUPPLEMENT 03/01/22 [History Last Taken Unknown] vitamins A,C,Y-evrr-hpmnsg 4,296 mcg-226 mg-90 mg capsule (PreserVision AREDS) 1 cap PO BID EYE HEALTH 03/01/22 [History Last Taken Unknown] auqnuoy-rfexmwmqrcolw-nsszhtku 250 mg-250 mg-65 mg tablet (Excedrin Extra Strength) 1 tab PO ONCE PRN pain 03/03/22 [History Last Taken Unknown] naproxen sodium 220 mg capsule (Aleve) 220 mg PO BID PRN pain 03/03/22 [History Last Taken Unknown] propylene glycol 0.6 % eye drops (Systane Balance) 1 drp ophthalmic (eye) DAILY PRN dry eye(s) 03/03/22 [History Last Taken Unknown] calcium carbonate 500 mg-vitamin D3 10 mcg (400 unit) tablet (Calcium 500 + D) 1 tab PO DAILY SUPPLEMENT 06/01/22 [History Last Taken Unknown] amlodipine 2.5 mg tablet 2.5 mg PO DAILY BLOOD PRESSURE 12/29/22 [History Last Taken Unknown] levothyroxine 88 mcg tablet (Synthroid) 88 mcg PO DAILY THYROID 12/29/22 [History Last Taken Unknown] omega-3 fatty acids 1,000 mg PO DAILY SUPPLEMENT 05/13/23 [History Last Taken Unknown] Allergy/AdvReac Type Severity Reaction Status Date / Time Sulfa (Sulfonamide Allergy UNKNOWN Verified 05/13/23 09:05 Antibiotics) Family History Father Cancer Mother Hypertension Heart disease CHF COPD (chronic obstructive pulmonary disease) Brother Cancer Surgical History History of cataract surgery Social History Smoking Status: Never smoker alcohol intake: never substance use type: does not use caffeine: Yes Type: coffee ROS Cardiovascular Cardiovascular: Denies chest pain at rest Respiratory/Chest Respiratory/Chest: Denies cough Gastrointestinal Gastrointestinal: Reports abdominal pain and nausea; Denies bloating Genitourinary Genitourinary: Denies dysuria Musculoskeletal Musculoskeletal: Denies joint swelling Integumentary Integumentary: Reports jaundice Neurologic Neurologic: Denies dizziness Psychiatric Psychiatric: Denies anxiety or depression Endocrine Endocrinology: Denies palpitations Hematologic/Lymphatic Hematologic/Lymphatic: Denies easy bleeding Physical Exam Const alert, oriented x3 and no apparent distress HEENT normocephalic and head/scalp atraumatic Resp normal respiratory effort Cardio regular rate GI soft to palpation and non-tender; Negative for non-distended Palpation: Negative for guarding Extremity no clubbing, cyanosis or edema Neuro CN's II-XII intact bilaterally Psych mental status grossly normal Lab / Micro Data 05/14/23 05:45 05/14/23 05:45 Labs: Laboratory Results - last 24 hr 05/13/23 09:30: WBC 15.0 H, RBC 4.29, Hgb 14.2, Hct 39.0, MCV 90.9, MCH 33.1 H, MCHC 36.4 H, RDW Std Deviation 42.6, RDW Coeff of Rhina 13.0, Plt Count 359, MPV 10.3, Immature Gran % (Auto) 0.400, Neut % (Auto) 90.3 H, Lymph % (Auto) 2.7 L, [place] % (Auto) 4.3, Eos % (Auto) 2.0, Baso % (Auto) 0.3, Absolute Neuts (auto) 13.5 H, Absolute Lymphs (auto) 0.40 L, Nucleated RBC % 0, Sodium 126 L, Potassium 3.9, Chloride 92 L, Carbon Dioxide 24.0, Anion Gap 10, BUN 11, Creatinine 0.86, Estim Creat Clear Calc 39.56, Est GFR (MDRD) Af Amer 81, Est GFR (MDRD) Non-Af 67, BUN/Creatinine Ratio 12.8, Glucose 131 H, Calcium 9.2, Total Bilirubin 6.20 H, Direct Bilirubin 4.74 H, AST 100 H, ALT 111 H, Alkaline Phosphatase 965 H, Total Protein 7.4, Albumin 3.0 L, Globulin 4.4 H, Lipase 32 05/13/23 10:50: Urine Color Yellow, Urine Clarity Sl. Cloudy, Urine pH 7.0, Ur Specific [place] 1.010, Urine Protein 30 H, Urine Glucose (UA) Normal, Urine Ketones 5 H, Urine Occult Blood 10 H, Urine Nitrite Negative, Urine Bilirubin 3 H, Urine Urobilinogen 4 H, Ur Leukocyte Esterase 25 H, Urine RBC 0 SEEN, Urine WBC 0 SEEN, Ur Squamous Epith Cells 0 SEEN, Urine Bacteria 0 SEEN, Urine Mucus 0 SEEN Radiology Impression Abdomen/Pelvis CT 05/13/23 10:40 IMPRESSION: 1. Abnormal intrahepatic and extrahepatic ductal dilatation secondary to probable 3 stack of obstructing gallstones in the distal common bile duct. Additionally, gallbladder dilatation containing 1.7 cm gallstone. 2. Sigmoid diverticulosis without diverticulitis. Electronically Signed: Naayn Ojeda MD at 11:12 EDT , ADDENDUM: 05/13/23 1123 IMPRESSION: 1. Abnormal intrahepatic and extrahepatic ductal dilatation secondary to probable 3 stack of obstructing gallstones in the distal common bile duct. Additionally, gallbladder dilatation containing 1.7 cm gallstone. 2. Sigmoid diverticulosis without diverticulitis. N.B. : The above Results were Read Back by Nayan Ojeda MD to Husam Joiner MD, and understanding confirmed on 05/13/2023 11:16:36 (ET). Electronically Signed: Nayan Ojeda MD at 11:12 EDT , Charges/Coding Visit Charges Inpatient E&M: 77582 Init Hosp L3
[2023-05-13 21:33] LABS: International Normalized Ratio 1.2; Partial Thromboplast Time 32.3 Seconds (24.1-36.2); Prothrombin Time (Protime)PT. 14.8 SECONDS (11.7-14.9)
[2023-05-13] MEDS: Multivitamin (Healthy Eyes) Capsule 1 CAP PO (21:57)
--- NOTE | 2023-05-13 23:00 | EX.PCM.CON.G ---
HPI Consult Data Date of Consult: 05/13/23 HPI Narrative Reason for Consultation: Choledocholithiasis HPI Narrative: CHINMAY COTA, is a 83 F who presents with abdominal pain. She has a past medical history of GERD osteoporosis and hypothyroidism. She presented to the ED several days ago with intermittent epigastric and chest pain. She was evaluated for acute coronary syndrome and was sent home. She presented back to the ED today after her abdominal pain got worse and started radiating to the right upper quadrant and right lower quadrant. She denied any associated fever or chills. Vitals in the ED were blood pressure 155/88, pulse rate of 75 respiratory rate of 18 with oxygen sats of 95% on room air. CBC showed hemoglobin of 14.2 with WBC of 15 and platelets of 359. Chemistry showed sodium of 126 and bicarb of 24 with creatinine of 0.86. Total bilirubin was elevated at 6.2 with a direct bilirubinemia of 4.74. AST and ALT were also elevated and ALP was markedly elevated at 965, indicating cholestatic pattern. CT abdomen and pelvis showed gallbladder dilatation and 1.7 cm gallstone with suspicious 3 stacked excessive gallstones in the distal common bile duct. She also had abnormal intrahepatic biliary ductal dilatation. She has been admitted to be managed for acute cholecystitis with choledocholithiasis. [facility] Medical History (Updated 05/14/23 @ 07:13 by Annie Son) Circumscribed scleroderma Essential hypertension Hyperlipidemia Hypertension Hypothyroidism Mitral valve annular calcification Osteoporosis Secondary pulmonary arterial hypertension Stroke/cerebrovascular accident Home Medications alendronate 70 mg tablet 70 mg PO QWEEK OSTEOPOROSIS 03/01/22 [History Last Taken Unknown] cholecalciferol (vitamin D3) 50 mcg (2,000 unit) capsule 50 mcg PO DAILY 03/01/22 [History Last Taken Unknown] multivitamin 1 tab PO DAILY SUPPLEMENT 03/01/22 [History Last Taken Unknown] multivitamin with minerals (Hair,Skin and Nails tablet) 1 tab PO DAILY SUPPLEMENT 03/01/22 [History Last Taken Unknown] vitamin B complex 1 tab PO DAILY SUPPLEMENT 03/01/22 [History Last Taken Unknown] vitamins A,C,J-wbic-wocjeb 4,296 mcg-226 mg-90 mg capsule (PreserVision AREDS) 1 cap PO BID EYE HEALTH 03/01/22 [History Last Taken Unknown] nkanfxp-gevcpyugwmmiv-cgmuqzws 250 mg-250 mg-65 mg tablet (Excedrin Extra Strength) 1 tab PO ONCE PRN pain 03/03/22 [History Last Taken Unknown] naproxen sodium 220 mg capsule (Aleve) 220 mg PO BID PRN pain 03/03/22 [History Last Taken Unknown] propylene glycol 0.6 % eye drops (Systane Balance) 1 drp ophthalmic (eye) DAILY PRN dry eye(s) 03/03/22 [History Last Taken Unknown] calcium carbonate 500 mg-vitamin D3 10 mcg (400 unit) tablet (Calcium 500 + D) 1 tab PO DAILY SUPPLEMENT 06/01/22 [History Last Taken Unknown] amlodipine 2.5 mg tablet 2.5 mg PO DAILY BLOOD PRESSURE 12/29/22 [History Last Taken Unknown] levothyroxine 88 mcg tablet (Synthroid) 88 mcg PO DAILY THYROID 12/29/22 [History Last Taken Unknown] omega-3 fatty acids 1,000 mg PO DAILY SUPPLEMENT 05/13/23 [History Last Taken Unknown] Allergy/AdvReac Type Severity Reaction Status Date / Time Sulfa (Sulfonamide Allergy UNKNOWN Verified 05/13/23 09:05 Antibiotics) Family History Father Cancer Mother Hypertension Heart disease CHF COPD (chronic obstructive pulmonary disease) Brother Cancer Surgical History History of cataract surgery Social History Smoking Status: Never smoker alcohol intake: never substance use type: does not use caffeine: Yes Type: coffee ROS Constitutional Constitutional: Reports anorexia, fatigue, malaise and weakness; Denies chills or fever(s) Eyes Eyes: Denies change in vision ENT HEENT: Denies dysphagia or headache(s) Cardiovascular Cardiovascular: Denies chest pain, dyspnea on exertion, lightheadedness, orthopnea, palpitations, rapid heart rate or syncope Respiratory/Chest Respiratory/Chest: Denies cough, dyspnea, shortness of breath at rest or shortness of breath with exertion Gastrointestinal Gastrointestinal: Reports abdominal pain; Denies diarrhea, nausea or vomiting Genitourinary Genitourinary: Denies burning urination, difficulty urinating or dysuria Musculoskeletal Musculoskeletal: Denies arthralgias or joint pain Neurologic Neurologic: Denies confusion, dizziness, focal weakness, headache(s), numbness, seizures or tremor(s) Psychiatric Psychiatric: Denies anxiety or depression Endocrine Endocrinology: Denies change in body appearance Physical Exam Const alert, oriented x3 and no apparent distress HEENT normocephalic and head/scalp atraumatic Resp normal respiratory effort Cardio regular rate GI soft to palpation and non-tender; Negative for non-distended Palpation: Negative for guarding Extremity no clubbing, cyanosis or edema Neuro CN's II-XII intact bilaterally Psych mental status grossly normal Lab / Micro Data 05/14/23 05:45 05/14/23 05:45 Labs: Laboratory Results - last 24 hr 05/13/23 09:30: WBC 15.0 H, RBC 4.29, Hgb 14.2, Hct 39.0, MCV 90.9, MCH 33.1 H, MCHC 36.4 H, RDW Std Deviation 42.6, RDW Coeff of Rhina 13.0, Plt Count 359, MPV 10.3, Immature Gran % (Auto) 0.400, Neut % (Auto) 90.3 H, Lymph % (Auto) 2.7 L, [place] % (Auto) 4.3, Eos % (Auto) 2.0, Baso % (Auto) 0.3, Absolute Neuts (auto) 13.5 H, Absolute Lymphs (auto) 0.40 L, Nucleated RBC % 0, Sodium 126 L, Potassium 3.9, Chloride 92 L, Carbon Dioxide 24.0, Anion Gap 10, BUN 11, Creatinine 0.86, Estim Creat Clear Calc 39.56, Est GFR (MDRD) Af Amer 81, Est GFR (MDRD) Non-Af 67, BUN/Creatinine Ratio 12.8, Glucose 131 H, Calcium 9.2, Total Bilirubin 6.20 H, Direct Bilirubin 4.74 H, AST 100 H, ALT 111 H, Alkaline Phosphatase 965 H, Total Protein 7.4, Albumin 3.0 L, Globulin 4.4 H, Lipase 32 05/13/23 10:50: Urine Color Yellow, Urine Clarity Sl. Cloudy, Urine pH 7.0, Ur Specific [place] 1.010, Urine Protein 30 H, Urine Glucose (UA) Normal, Urine Ketones 5 H, Urine Occult Blood 10 H, Urine Nitrite Negative, Urine Bilirubin 3 H, Urine Urobilinogen 4 H, Ur Leukocyte Esterase 25 H, Urine RBC 0 SEEN, Urine WBC 0 SEEN, Ur Squamous Epith Cells 0 SEEN, Urine Bacteria 0 SEEN, Urine Mucus 0 SEEN 05/13/23 21:14: PT 14.8, INR 1.2, APTT 32.3 05/14/23 05:45: WBC 11.0, RBC 3.40 L, Hgb 11.0 L, Hct 31.9 L, MCV 93.8, MCH 32.4 H, MCHC 34.5 D, RDW Std Deviation 46.5 H, RDW Coeff of Rhina 13.4, Plt Count 238, MPV 10.4, Immature Gran % (Auto) 0.500, Neut % (Auto) 83.1 H, Lymph % (Auto) 8.1 L, [place] % (Auto) 7.6, Eos % (Auto) 0.3, Baso % (Auto) 0.4, Absolute Neuts (auto) 9.2 H, Absolute Lymphs (auto) 0.89, Nucleated RBC % 0, Sodium 132 L, Potassium 3.8, Chloride 104, Carbon Dioxide 23.0, Anion Gap 5, BUN 11, Creatinine 0.55, Estim Creat Clear Calc 34.02, Est GFR (MDRD) Af Amer 135, Est GFR (MDRD) Non-Af 111, BUN/Creatinine Ratio 19.9, Glucose 80, Calcium 7.8 L, Total Bilirubin 6.10 H, AST 53 H, ALT 69 H, Alkaline Phosphatase 662 H, Total Protein 5.3 L, Albumin 2.0 L, Globulin 3.3, Albumin/Globulin Ratio 0.6 L Radiology Impression Abdomen/Pelvis CT 05/13/23 10:40 IMPRESSION: 1. Abnormal intrahepatic and extrahepatic ductal dilatation secondary to probable 3 stack of obstructing gallstones in the distal common bile duct. Additionally, gallbladder dilatation containing 1.7 cm gallstone. 2. Sigmoid diverticulosis without diverticulitis. Electronically Signed: Nayan Ojeda MD at 11:12 EDT , ADDENDUM: 05/13/23 1120 IMPRESSION: 1. Abnormal intrahepatic and extrahepatic ductal dilatation secondary to probable 3 stack of obstructing gallstones in the distal common bile duct. Additionally, gallbladder dilatation containing 1.7 cm gallstone. 2. Sigmoid diverticulosis without diverticulitis. N.B. : The above Results were Read Back by Nayan Ojeda MD to Husam Joiner MD, and understanding confirmed on 05/13/2023 11:16:36 (ET). Electronically Signed: Nayan Ojeda MD at 11:12 EDT , Assessment & Plan Assessment/Plan (1) Choledocholithiasis: PLAN: 83-year-old with abdominal pain without fevers, jaundice and discovered to have biliary obstruction on imaging. Agree with antibiotic therapy. She needs to undergo therapeutic and diagnostic ERCP. She was explained alternatives, risk, benefits including not withstanding bleeding, infection, sepsis, perforation, need for emergent surgery and . She will have an ASA of 3. Charges/Coding Visit Charges Inpatient E&M: 21651 Init Hosp L2
[2023-05-14] VITALS (9 sets, daily range): BP systolic 121–142; BP diastolic 58–81; PULSE 71–82; RESP 16–18; TEMP 36.3–36.8; O2SAT 97–100; BMI 20.8
[2023-05-14] MEDS: 0.9% Normal Saline 1,000 ML 150 ML IV ×2 (04:27→11:35)
[2023-05-14] MEDS: Levothyroxine 88 MCG Tablet PO (05:43)
[2023-05-14 06:36] LABS: Absolute Lymphocyte Count 0.89 X10^3/uL (0.83-4.51); Absolute Neutrophil Count 9.2 X10^3/uL (2.0-7.7); Basophil# 0.04 X10^3/uL; Basophil% 0.4 % (0-1); Eosinophil# 0.03 X10^3/uL; Eosinophils% 0.3 % (0-5); Hematocrit 31.9 % (37-47); Lymphocyte # 0.89 X10^3/ul (0.83-4.51); Lymphocyte % 8.1 % (19-41); Mean Corp Hgb Conc 34.5 g/dL (32-36); Mean Corpuscular Hgb 32.4 pg (27.0-32.0); Mean Corpuscular Volume 93.8 fL (81-99); Mean Platelet Vol. 10.4 fl (6.2-12.0); Monocyte# 0.84 X10^3/uL; Monocyte% 7.6 % (0-10); NRBC Flagged by Analyzer 0 % (0-5); Neutrophil # 9.19 X10^3/uL (2.7-7.7); Neutrophil % 83.1 % (47-70); Platelet Count 238 K/mm3 (150-450); RBC Distribution Width CV 13.4 % (11.6-14.6); RBC Distribution Width SD 46.5 fl (35.1-43.9)
[2023-05-14] MEDS: Ibuprofen 400 MG Tablet PO (06:54)
[2023-05-14 06:59] LABS: ALB/GLOB Ratio 0.6 RATIO (0.9-2.4); AST(SGOT) 53 U/L (15-37); Alanine Aminotransfer ALT/SGPT 69 U/L (13-56); Alkaline Phosphatase 662 U/L (45-117); Anion Gap 5 (5-15); BUN 11 mg/dL (7-18); BUN/Creat Ratio 19.9 RATIO (10-20); Calcium,Total 7.8 mg/dL (8.5-10.1); Chloride 104 mmol/L (98-107); Creatinine, Serum 0.55 mg/dL (0.55-1.02); EST Glomerular Filtration Rate 111 mL/min (>60); Est Glom Filt Rate - Afr Amer 135 mL/min (>60); Estimated Creatinine Clearance 34.02 ml/min; Globulin 3.3 g/dL (2.2-4.2); Glucose 80 mg/dL (74-106); Potassium 3.8 mmol/L (3.5-5.1); Protein, Total 5.3 g/dL (6.4-8.2); Sodium Level 132 mmol/L (136-145)
--- NOTE | 2023-05-14 07:21 | RAD_ITS ---
ERCP INDICATION: Abdominal pain. COMPARISON: CT 05/13/2023. Fluoroscopy time: 1:15. 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 Examination the contrast filled the common bile duct demonstrates multiple filling defects within the distal common bile duct consistent with choledocholithiasis. Balloon extraction was performed. A biliary stent was placed. RAD/ERCP Biliary/Pancreas IMPRESSION: Choledocholithiasis treated with balloon extraction and biliary stent placement. Electronically Signed: Lawrence Tran MD at 9:36 EDT ,
[2023-05-14] MEDS: amLODIPine 2.5 MG Tablet PO (11:38)
[2023-05-14] MEDS: Enoxaparin 40 MG/0.4 ML Syringe SC (11:38)
[2023-05-14] MEDS: Multivitamins,Ther W-Minerals Tablet 1 TABLET PO (11:39)
[2023-05-14] MEDS: Multivitamin (Healthy Eyes) Capsule 1 CAP PO ×2 (11:39→20:37)
[2023-05-14] MEDS: Calcium Carb/Vitamin D 1 TABLET Tablet PO (11:39)
[2023-05-14] MEDS: Cholecalciferol (VIT D3) 25 MCG TABLET (1,000 UNITS) 50 MCG PO (11:39)
[2023-05-14] MEDS: Omega-3 Acid Ethyl Esters 1 GM Capsule PO (11:40)
[2023-05-14] MEDS: Vitamin B Comp W-C Capsule 1 CAP PO (11:40)
--- NOTE | 2023-05-14 12:52 | PN_ITS ---
Subjective Subjective Patient seen and examined. She has no active complaints. She had ERCP today. Abdominal pain has improved. Review of systems is otherwise negative. She has remained hemodynamically stable. Objective Data Objective Data Vital Signs: Vital Signs Temp Pulse Resp BP Pulse Ox O2 Del Method 97.4 F L 72 18 130/68 H 100 Room Air 05/14/23 09:51 05/14/23 09:51 05/14/23 09:51 05/14/23 09:51 05/14/23 09:51 05/14/23 09:51 Oxygen Delivery Method Room Air Weight: 117 lb 11.629 oz Body Mass Index (BMI) 20.8 Intake & Output: Intake and Output for Last 24 Hours 05/12/23 05/13/23 05/14/23 23:59 23:59 23:59 Intake Total 1809.25 / 1809.25 2100 / 2100 Balance 1809.25 / 1809.25 2100 / 2100 Lab / Micro Data 05/14/23 05:45 05/14/23 05:45 Labs: Laboratory Results - last 24 hr 05/13/23 21:14: PT 14.8, INR 1.2, APTT 32.3 05/14/23 05:45: WBC 11.0, RBC 3.40 L, Hgb 11.0 L, Hct 31.9 L, MCV 93.8, MCH 32.4 H, MCHC 34.5 D, RDW Std Deviation 46.5 H, RDW Coeff of Rhina 13.4, Plt Count 238, MPV 10.4, Immature Gran % (Auto) 0.500, Neut % (Auto) 83.1 H, Lymph % (Auto) 8.1 L, [place] % (Auto) 7.6, Eos % (Auto) 0.3, Baso % (Auto) 0.4, Absolute Neuts (auto) 9.2 H, Absolute Lymphs (auto) 0.89, Nucleated RBC % 0, Sodium 132 L, Potassium 3.8, Chloride 104, Carbon Dioxide 23.0, Anion Gap 5, BUN 11, Creatinine 0.55, Estim Creat Clear Calc 34.02, Est GFR (MDRD) Af Amer 135, Est GFR (MDRD) Non-Af 111, BUN/Creatinine Ratio 19.9, Glucose 80, Calcium 7.8 L, Total Bilirubin 6.10 H, AST 53 H, ALT 69 H, Alkaline Phosphatase 662 H, Total Protein 5.3 L, Albumin 2.0 L, Globulin 3.3, Albumin/Globulin Ratio 0.6 L 05/14/23 05:48: Magnesium 2.0 Radiography Diagnostic Testing: Radiology Impression Endo Retro Cholangiopancreatogram 05/14/23 07:21 IMPRESSION: Choledocholithiasis treated with balloon extraction and biliary stent placement. Electronically Signed: Lawrence Tran MD at 9:36 EDT , Physical Exam Const alert, oriented x3 and no apparent distress General Appearance: cooperative HEENT normocephalic, hearing grossly normal bilaterally and moist oral mucous me mbranes Eyes PERRL, EOMs intact bilaterally and conjunctivae normal Neck no lymphadenopathy and supple Lymph Lymphatic: no lymphadenopathy noted Resp normal respiratory effort, normal air movement, no retractions, no use of accessory muscles and clear to auscultation bilaterally Cardio regular rate, regular rhythm, S1 normal heart sound, S2 normal heart sound and no murmurs GI normal to inspection, nondistended, normoactive bowel sounds GI Narrative: abdomen soft, RUQ tenderness, positive Felix's sign Extremity normal to inspection, full ROM, normal capillary refill and no clubbing, cyanosis or edema Skin General Skin Exam: no breakdown Neuro oriented x3, CN's II-XII intact bilaterally, moves all extremities and no focal motor deficits Sensorium / Orientation: awake and alert Psych affect normal Appearance: appropriate Assessment & Plan Assessment/Plan (1) Choledocholithiasis: (2) Cholecystitis: PLAN: Plan #Acute cholecystitis with cholelithiasis and choledocholithiasis * abdominal pain has improved. * total bilirubin is 6.1. AST and ALT are trending downwards * ALP has trended down to 662. * CT abdomen and pelvis showed abnormal intrahepatic and extrahepatic ductal dilatation secondary to probable 3 stack of obstructing gallstones in the distal common bile duct. Additionally, gallbladder dilatation containing 1.7 cm gallstone. * GI and Gen surgery on board. to have ERCP by GI today and to have a cholecystostomy tube inserted tomorrow * on IV zosyn * on clear liquid diet, per general surgery * hydrate gently with iVF * * #Hyponatremia * sodium has improved to 132 * likely due to dehydration from decreased intake * hydrate with IVF and trend sodium * * #Hypertension: on amlodipine #Hypothyroidism:on synthroid DVT prophylaxis:lovenox Code status: full code Charges/Coding Visit Charges Inpatient E&M: 55362 Subs Hosp L2
[2023-05-14] MEDS: 0.9% Normal Saline 1,000 ML 75 ML IV (18:15)
--- NOTE | 2023-05-14 18:21 | PCM.PN.SRG ---
Subjective Subjective Patient had ERCP today with sphincterotomy and stent placement. Patient denies any abdominal pain Objective Data Objective Data Vital Signs: Vital Signs Temp Pulse Resp BP Pulse Ox O2 Del Method 97.6 F L 82 18 126/78 H 97 Room Air 05/14/23 14:28 05/14/23 14:28 05/14/23 14:28 05/14/23 14:28 05/14/23 14:28 05/14/23 14:28 Oxygen Delivery Method Room Air Weight: 117 lb 11.629 oz Body Mass Index (BMI) 20.8 Intake & Output: Intake and Output for Last 24 Hours 05/12/23 05/13/23 05/14/23 23:59 23:59 23:59 Intake Total 1809.25 / 1809.25 3100.75 / 3100.75 Balance 1809.25 / 1809.25 3100.75 / 3100.75 Lab / Micro Data 05/14/23 05:45 05/14/23 05:45 Labs: Laboratory Results - last 24 hr 05/13/23 21:14: PT 14.8, INR 1.2, APTT 32.3 05/14/23 05:45: WBC 11.0, RBC 3.40 L, Hgb 11.0 L, Hct 31.9 L, MCV 93.8, MCH 32.4 H, MCHC 34.5 D, RDW Std Deviation 46.5 H, RDW Coeff of Rhina 13.4, Plt Count 238, MPV 10.4, Immature Gran % (Auto) 0.500, Neut % (Auto) 83.1 H, Lymph % (Auto) 8.1 L, [place] % (Auto) 7.6, Eos % (Auto) 0.3, Baso % (Auto) 0.4, Absolute Neuts (auto) 9.2 H, Absolute Lymphs (auto) 0.89, Nucleated RBC % 0, Sodium 132 L, Potassium 3.8, Chloride 104, Carbon Dioxide 23.0, Anion Gap 5, BUN 11, Creatinine 0.55, Estim Creat Clear Calc 34.02, Est GFR (MDRD) Af Amer 135, Est GFR (MDRD) Non-Af 111, BUN/Creatinine Ratio 19.9, Glucose 80, Calcium 7.8 L, Total Bilirubin 6.10 H, AST 53 H, ALT 69 H, Alkaline Phosphatase 662 H, Total Protein 5.3 L, Albumin 2.0 L, Globulin 3.3, Albumin/Globulin Ratio 0.6 L 05/14/23 05:48: Magnesium 2.0 Radiography Diagnostic Testing: Radiology Impression Endo Retro Cholangiopancreatogram 05/14/23 07:21 IMPRESSION: Choledocholithiasis treated with balloon extraction and biliary stent placement. Electronically Signed: Lawrence Tran MD at 9:36 EDT , Physical Exam Const oriented x3 and no apparent distress Resp normal respiratory effort Cardio regular rate GI soft to palpation and non-tender Inspection: Negative for abdominal distention Assessment & Plan Assessment/Plan (1) Biliary obstruction: (2) Cholecystitis: (3) Choledocholithiasis: PLAN: Plan Labs tomorrow. Debating whether to do a lap nelson versus an cholecystostomy with interval lap nelson. Will discuss with patient further in the morning. Patient's daughter was also present tonight. Continue IV Tina Tobias M.D. Pager: [phone] [facility] [address] [place] [address], Outpatient [place], [address] [place] [address] Office: [phone] Charges/Coding Visit Charges Inpatient E&M: 48830 Subs Hosp L2
[2023-05-15] VITALS (13 sets, daily range): BP systolic 121–170; BP diastolic 58–88; PULSE 70–85; RESP 16–24; TEMP 36.4–37.1; O2SAT 95–99; BMI 20.9
[2023-05-15 06:09] LABS: Absolute Lymphocyte Count 0.77 X10^3/uL (0.83-4.51); Absolute Neutrophil Count 7.9 X10^3/uL (2.0-7.7); Basophil# 0.04 X10^3/uL; Basophil% 0.4 % (0-1); Eosinophil# 0.01 X10^3/uL; Eosinophils% 0.1 % (0-5); Hematocrit 33.1 % (37-47); Hemoglobin 11.3 g/dL (12.0-15.0); Lymphocyte # 0.77 X10^3/ul (0.83-4.51); Lymphocyte % 7.9 % (19-41); Mean Corp Hgb Conc 34.1 g/dL (32-36); Mean Corpuscular Hgb 31.8 pg (27.0-32.0); Mean Corpuscular Volume 93.2 fL (81-99); Mean Platelet Vol. 10.1 fl (6.2-12.0); Monocyte# 0.87 X10^3/uL; Monocyte% 8.9 % (0-10); NRBC Flagged by Analyzer 0 % (0-5); Neutrophil % 81.3 % (47-70); Platelet Count 281 K/mm3 (150-450); RBC Distribution Width CV 13.3 % (11.6-14.6); RBC Distribution Width SD 45.6 fl (35.1-43.9); Red Blood Count 3.55 M/mm3 (4.2-5.4); White Blood Count 9.7 K/mm3 (4.4-11.0)
--- NOTE | 2023-05-15 06:36 | PN.SURG_ITS ---
Subjective Subjective Patient denies any pain, no complaints Objective Data Objective Data Vital Signs: Vital Signs Temp Pulse Resp BP Pulse Ox O2 Del Method 97.9 F 70 18 129/77 H 97 Room Air 05/15/23 02:30 05/15/23 02:30 05/15/23 02:30 05/15/23 02:30 05/15/23 02:05/15/23 02:30 Oxygen Delivery Method Room Air Weight: 117 lb 11.629 oz Body Mass Index (BMI) 20.8 Intake & Output: Intake and Output for Last 24 Hours 05/13/23 05/14/23 05/15/23 23:59 23:59 23:59 Intake Total 1809.25 / 1809.25 3270.75 / 3270.75 50 / 50 Balance 1809.25 / 1809.25 3270.75 / 3270.75 50 / 50 Lab / Micro Data 05/15/23 05:53 05/15/23 05:53 Labs: Laboratory Results - last 24 hr 05/14/23 05:45: WBC 11.0, RBC 3.40 L, Hgb 11.0 L, Hct 31.9 L, MCV 93.8, MCH 32.4 H, MCHC 34.5 D, RDW Std Deviation 46.5 H, RDW Coeff of Rhina 13.4, Plt Count 238, MPV 10.4, Immature Gran % (Auto) 0.500, Neut % (Auto) 83.1 H, Lymph % (Auto) 8.1 L, [place] % (Auto) 7.6, Eos % (Auto) 0.3, Baso % (Auto) 0.4, Absolute Neuts (auto) 9.2 H, Absolute Lymphs (auto) 0.89, Nucleated RBC % 0, Sodium 132 L, Potassium 3.8, Chloride 104, Carbon Dioxide 23.0, Anion Gap 5, BUN 11, Creatinine 0.55, Estim Creat Clear Calc 34.02, Est GFR (MDRD) Af Amer 135, Est GFR (MDRD) Non-Af 111, BUN/Creatinine Ratio 19.9, Glucose 80, Calcium 7.8 L, Total Bilirubin 6.10 H, AST 53 H, ALT 69 H, Alkaline Phosphatase 662 H, Total Protein 5.3 L, Albumin 2.0 L, Globulin 3.3, Albumin/Globulin Ratio 0.6 L 05/14/23 05:48: Magnesium 2.0 05/15/23 05:53: WBC 9.7, RBC 3.55 L, Hgb 11.3 L, Hct 33.1 L, MCV 93.2, MCH 31.8, MCHC 34.1, RDW Std Deviation 45.6 H, RDW Coeff of Rhina 13.3, Plt Count 281, MPV 10.1, Immature Gran % (Auto) 1.400 H, Neut % (Auto) 81.3 H, Lymph % (Auto) 7.9 L , [place] % (Auto) 8.9, Eos % (Auto) 0.1, Baso % (Auto) 0.4, Absolute Neuts (auto) 7.9 H, Absolute Lymphs (auto) 0.77 L, Nucleated RBC % 0 Radiography Diagnostic Testing: Radiology Impression Endo Retro Cholangiopancreatogram 05/14/23 07:21 IMPRESSION: Choledocholithiasis treated with balloon extraction and biliary stent placement. Electronically Signed: Lawrence Tran MD at 9:36 EDT , Physical Exam Const oriented x3 and no apparent distress Resp normal respiratory effort Cardio regular rate GI soft to palpation and non-tender Inspection: Negative for abdominal distention Assessment & Plan Assessment/Plan (1) Cholecystitis: (2) Choledocholithiasis: PLAN: Plan Patient on scheduled for a laparoscopic cholecystectomy at about 1330 today. Reviewed the anatomy with the patient and discussed the procedure: laparoscopic cholecystectomy with cholangiograms, possible open. Review risks including but not limited to bleeding, infection, hernia, bile leak, retained gallstones requiring another procedure ERCP- Endoscopic Retrograde Cholangiopancreatography, injury to another organ (bile ducts, common bile duct, small bowel, etc.) and conversion to an open procedure. All questions were answered. Nicole Tobias M.D. Pager: [phone] [facility] [place] [facility] [address] [place] [address], [address] [place] [address] Office: [phone]
[2023-05-15 06:38] LABS: ALB/GLOB Ratio 0.6 RATIO (0.9-2.4); AST(SGOT) 47 U/L (15-37); Alanine Aminotransfer ALT/SGPT 62 U/L (13-56); Alkaline Phosphatase 624 U/L (45-117); Anion Gap 6 (5-15); BUN 13 mg/dL (7-18); BUN/Creat Ratio 21.8 RATIO (10-20); Calcium,Total 8.2 mg/dL (8.5-10.1); Chloride 106 mmol/L (98-107); EST Glomerular Filtration Rate 102 mL/min (>60); Est Glom Filt Rate - Afr Amer 123 mL/min (>60); Estimated Creatinine Clearance 34.02 ml/min; Globulin 3.5 g/dL (2.2-4.2); Glucose 99 mg/dL (74-106); Potassium 3.8 mmol/L (3.5-5.1); Protein, Total 5.5 g/dL (6.4-8.2); Sodium Level 134 mmol/L (136-145)
[2023-05-15] MEDS: 0.9% Normal Saline 1,000 ML 75 ML IV ×2 (08:18→17:56)
[2023-05-15] MEDS: amLODIPine 2.5 MG Tablet PO (08:20)
--- NOTE | 2023-05-15 10:47 | CASEMGMT ---
RN?CM?BEFORE S[employer] BABYSITTER?CM?to room to meet with patient for initial transition planning/care coordination?assessment.?RN?CM?introduced self and role at [facility].? Pt voices understanding and consents to?assessment?at this time.? Pt resting in bed in no distress at this time.? Pt is A/O at this time and answers all questions appropriately.?? Care providers, pharmacy, and demographics verified/updated at this time. PCP: Kiersten Conner NP Specialists: Dr Shabazz-JACK/cardiology, Dr Quintero-podiatry Preferred Pharmacy: [facility] Retail Insurance: [employer] Prescription Benefit:?Yes Living Will/HPOA:?Has both LW and HCPOA, who is her dtr, Rita, as primary POA. She states dtrs, Latha and Angei, are listed as alternatives. She states Rita has a copy of these and will see if she can bring them in sometime. LNOK: Dtrs's, Rita, Latha, and Angie. Son. Living Arrangements: Lives alone in split-level home w/2 steps to enter. She states she does fine w/the stairs. Independent. Transportation:?Pt states drives self and states no transportation concerns at this time.?Rita will take her home @ d/c. DME: States has the following DME:?Has and uses: tub bench and grab bars. Has but does not use: cane, walker, toilet riser ? Pt states no need for further DME at this time.? HHC/SNF: No hx of either. Has done OP therapy @ [facility] in the past. Denies need for HHC or OP therapy. Pt wishes to return home and states has no concerns with going home at time of discharge.? CM?to follow for home oxygen needs and any discharge planning/needs.? Pt voices no concerns/needs at this time.? Advised pt to ask for?CM?if any questions/concerns/needs arise.? Voices understanding. PLAN:??Home [place] BSN?RN?CM
[2023-05-15] MEDS: 0.9% Normal Saline 1,000 ML 15 ML IV (12:48)
--- NOTE | 2023-05-15 13:30 | GALL_PTH ---
PATIENT: CHINMAY COTA LOC: [facility]3 U#:[id number] AGE/SX: 83/F ROOM: [facility] RE05/13/[address]: Dr. Rojas Louis DO : 1940 BED: 1 DIS: 05/17/2023 SPEC #: [id number] RECD: 05/15/23 15:58 STATUS: RENNY REKaran #: [id number] WILLARD: 05/15/23 13:[address]: Nicole Tobias DEPT: SURGICAL PATHOLOGY RECD BY: Ekta Hitchcock ENTERED: 05/16/23 09:54 SP TYPE: GALLBLADDE OTHR DR: DO Dr. Lauren Ramos MD Dr. Tamera Robotham, MD Carolyn Graham, [employer] INS[employer]-C Tissues: Gallbladder, NOS Procedures: Surgery Specimen Level III Comments: @ Ordering doctor for SUIII edited from to @ by VERONICA at 05/16/23 1448 @ Submitting doctor edited from to @ by VERONICA at 05/16/23 1448 HEADER OPERATION: Laparoscopic cholecystectomy with IOC PRE-OP DIAGNOSIS: Cholelithiasis TISSUE SUBMITTED: Gallbladder MICROSCOPIC DIAGNOSIS Gallbladder, cholecystectomy: Acute and chronic cholecystitis and cholelithiasis. A benign pericystic lymph node with reactive changes. ALYCE:naty 05/17/2023 MICROSCOPIC DESCRIPTION Slides are reviewed. GROSS DESCRIPTION Received is one container labeled with the patient's name and designated gallbladder. The specimen consists of a gallbladder measuring 11.5 cm in length and up to 4.0 cm in diameter. The external surface is pink-martinez, smooth and glistening for the most part. Focally it is granular, hemorrhagic and contains cautery artifact. The gallbladder contains yellowish, turbid, thick mucoid bile and one irregular brownish-black stone measuring 2.5 cm in greatest dimension. Multiple black smaller stones are also noted measuring in aggregate 2.0 x 1.5 x 0.5 cm and 0.3 to 1.0 cm in greatest dimension. The gallbladder wall measures up to 0.4 cm in thickness. Also present close to the cystic duct is an ovoid nodule and possible lymph node measuring 1.7 cm in greatest dimension. [employer] sections are submitted in two cassettes as follows: 1 - gallbladder and the cystic duct, 2 - one bisected possible lymph node. / ALYCE:naty 05/16/2023 TC:2 CPT: 86099
--- NOTE | 2023-05-15 14:20 | RAD_ITS ---
PROCEDURE: Fluoroscopic guided cholangiogram DATE OF EXAMINATION: May 15, 2023 INDICATION: Female, 83 years old. LAP CHOLANGIOGRAM FOR ACUTE CHOLELITHIASIS AND CHOLEDOCHOLITHIASIS 25.7 SECONDS FLUORO, 6.22 mGy DOSE, 2 CINE RUNS Other Info TS PHYSICIAN: Nicole Tobias MD FLUOROSCOPY TIME (if supplied): 25.7 seconds RADIATION DOSAGE (If Supplied By Facility): CTDIvol = ( ) mGy, DLP = ( ) mGycm CONSENT: The risks, benefits and alternatives to the procedure were explained to the patient, and the patient agreed to the procedure and signed the consent. PROCEDURE/TECHNIQUE: (All elements of maximal sterile barrier technique followed, including US elements as applicable) The risks, benefits, and alternatives to the procedure were explained to patient, and the patient agreed to the procedure and signed a consent form for the procedure. Comparison study: CT of abdomen and pelvis dated May 13, 2023. ERCP dated May 14, 2023. FINDINGS: Intraoperative surgical instrumentation seen in the elizabet hepatis region and overlying the liver. Contrast outlines the common bile duct and the main right and left intrahepatic biliary ducts. There is no uptake within the cystic duct or gallbladder consistent with recent cholecystectomy. CBD stent reidentified. No filling defects are identified. There is no biliary ductal dilatation. There is free passage into the duodenum. No extraluminal leakage of contrast is seen outside of the biliary ducts or bowel. RAD/Cholangiogram/ O R,Initial IMPRESSION: 1. Status post fluoroscopic guided cholangiogram. Electronically Signed: Diogo Card MD at 16:13 EDT Reading Location ID and State: [facility] / [place] , Service support ,
[2023-05-15] MEDS: Bupivacaine Mpf 0.5% 30 ML VIAL (14:59)
--- NOTE | 2023-05-15 15:18 | OP.PCM_ITS ---
Report of Operation Date of Procedure: 05/15/23 Pre-Operative Diagnosis: Acute cholecystitis, choledocholithiasis status post E PHONE TECHNICIAN Post-Operative Diagnosis: Same, choledocholithiasis Surgery/Procedure Performed:: Laparoscopic cholecystectomy with cholangiograms Surgeon: Nicole Tobias Anesthesiologist: Avtar Coughlin Special Medications: Zosyn 3.375 g IV every 8 hours on the floor for acute cholecystitis Specimen's removed: Gallbladder and stones Estimated Blood Loss (mL): < 10 cc Description of Procedure: Indications: this is a 83 year-old female who developed abdominal pain/nausea/vomiting and on workup was found to have choledocholithiasis status post ERCP, cholelithiasis, cholecystitis, with a normal common bile duct. Laparoscopic cholecystectomy was elected. Description procedure: The patient was placed on operating table in supine position. A timeout was completed verifying correct patient, procedure, site, position and special equipment prior to beginning procedure. General Anesthesia was induced. The abdomen was prepped and draped in usual sterile fashion. An incision was made in the natural skin line [above] the umbilicus. The fascia was elevated and incised. The peritoneum was elevated and incised. Entry into the peritoneum was confirmed visually and no bowel was noted in the vicinity of the incision. Kruse trocar was placed. The abdomen was insufflated with carbon dioxide to a pressure of 12-15 mmHg. Patient tolerated insufflation well. The laparoscope was then inserted and abdomen inspected. No injuries from initial trocar placement were noted. Additional trochars were then inserted in the following locations 5 mm trocar in the epigastrium and 2 more 5 mm trochars along the right costal margin. The abdomen was inspected no abnormalities were found. The table is placed in reverse Trendelenburg position with the right side up. The dome of the gallbladder was grasped with atraumatic grasper passed through the lateral port and retracted over the dome of the liver. Infundibulum was then grasped with atraumatic grasper through the midclavicular port and retra cted to the right lower quadrant. This maneuver exposed Calot's triangle. The peritoneum overlying the gallbladder infundibulum was then incised and cystic duct and artery identified and circumferentially dissected. Franz catheter was used for cholangiograms. The cholangiogram showed good filling of common bile duct into the duodenum with the 1-2 filling defects, good filling of the right and left bile ducts as well. The epigastric trocar site was enlarged to 12 mm trocar site in order, a 10 mm clips for the cystic duct. The cystic duct and artery were then doubly clipped and divided close to the gallbladder. The gallbladder then dissected from its peritoneal attachments by electrocautery. Hemostasis was checked and the gallbladder and contained stones were removed using the endoscopic retrieval bag through the umbilical port. The gallbladder is passed off table as specimen. The gallbladder fossa was irrigated with saline and hemostasis obtained. There is no evidence of bleeding from the gallbladder fossa or cystic artery leakage of bile from the cystic duct stump. Secondary trochars removed under direct vision. No bleeding was noted the trocar sites. The laparoscope was withdrawn and umbilical trocar removed. The abdomen was allowed to collapse. The fascia of the 12 mm trocar sites were closed with a [id number] 0 Vicryl suture. The skin was closed with sutures of 4-0 Monocryl and Steri-Strips. The patient was extubated. The patient tolerated procedure well and was taken to the postanesthesia care unit in stable condition. Complications none
--- NOTE | 2023-05-15 16:54 | EX.PCM.PN.GI ---
Subjective Subjective Patient underwent laparoscopic cholecystectomy. She was discovered to have multiple stones on her intraoperative cholangiogram. Objective Data Objective Data Vital Signs: Vital Signs Temp Pulse Resp BP Pulse Ox O2 Del Method 98.7 F 78 16 163/80 H 96 Room Air 05/15/23 16:44 05/15/23 16:44 05/15/23 16:44 05/15/23 16:44 05/15/23 16:44 05/15/23 16:44 Oxygen Delivery Method Room Air Weight: 117 lb 11.629 oz Body Mass Index (BMI) 20.8 Intake & Output: Intake and Output for Last 24 Hours 05/13/23 05/14/23 05/15/23 23:59 23:59 23:59 Intake Total 1809.25 / 1809.25 3270.75 / 3270.75 3399.25 / 3399.25 Output Total Balance 1809.25 / 1809.25 3270.75 / 3270.75 3389.25 / 3389.25 Lab / Micro Data 05/15/23 05:53 05/15/23 05:53 Labs: Laboratory Results - last 24 hr 05/15/23 05:53: WBC 9.7, RBC 3.55 L, Hgb 11.3 L, Hct 33.1 L, MCV 93.2, MCH 31.8, MCHC 34.1, RDW Std Deviation 45.6 H, RDW Coeff of Rhina 13.3, Plt Count 281, MPV 10.1, Immature Gran % (Auto) 1.400 H, Neut % (Auto) 81.3 H, Lymph % (Auto) 7.9 L, [place] % (Auto) 8.9, Eos % (Auto) 0.1, Baso % (Auto) 0.4, Absolute Neuts (auto) 7.9 H, Absolute Lymphs (auto) 0.77 L, Nucleated RBC % 0, Sodium 134 L, Potassium 3.8, Chloride 106, Carbon Dioxide 22.0, Anion Gap 6, BUN 13, Creatinine 0.60, Estim Creat Clear Calc 34.02, Est GFR (MDRD) Af Amer 123, Est GFR (MDRD) Non-Af 102, BUN/Creatinine Ratio 21.8 H, Glucose 99, Calcium 8.2 L, Total Bilirubin 2.40 H, AST 47 H, ALT 62 H, Alkaline Phosphatase 624 H, Total Protein 5.5 L, Albumin 2.0 L, Globulin 3.5, Albumin/Globulin Ratio 0.6 L Radiography Diagnostic Testing: Radiology Impression Cholangiogram 05/15/23 14:20 IMPRESSION: 1. Status post fluoroscopic guided cholangiogram. Electronically Signed: Diogo Card MD at 16:13 EDT Reading Location ID and State: [facility] / [place] , Service support , Physical Exam Const oriented x3 and no apparent distress Resp normal respiratory effort Cardio regular rate GI soft to palpation and non-tender Inspection: Negative for abdominal distention Assessment & Plan Assessment/Plan (1) Choledocholithiasis: PLAN: N.p.o. past midnight for stone removal in the a.m. Charges/Coding Visit Charges Inpatient E&M: 39609 Subs Hosp L2
[2023-05-15] MEDS: 0.9% Saline Lock 10 ML Syringe IV (18:01)
--- NOTE | 2023-05-15 18:04 | PN.HOSP_ITS ---
Reason for Visit Reason for Visit: Diagnoses Calculus of bile duct without cholangitis or cholecystitis without obstruction (05/13/23) Cholecystitis, unspecified (05/13/23) Obstruction of bile duct (05/13/23) Subjective Subjective Patient was seen and examined today, I saw her earlier today before she was to undergo laparoscopic cholecystectomy, she underwent a laparoscopic cholecystectomy today and was discovered to have multiple stones on her cholangiogram. Patient will have to undergo stone removal tomorrow morning by gastroenterology. Objective Data Objective Data Vital Signs: Vital Signs Temp Pulse Resp BP Pulse Ox O2 Del Method 97.7 F L 78 16 156/82 H 96 Room Air 05/15/23 17:14 05/15/23 17:14 05/15/23 17:14 05/15/23 17:14 05/15/23 16:44 05/15/23 17:14 Oxygen Delivery Method Room Air Weight: 53.4 kg Body Mass Index (BMI) 20.8 Intake & Output: Intake and Output for Last 24 Hours 05/13/23 05/14/23 05/15/23 23:59 23:59 23:59 Intake Total 1809.25 / 1809.25 3270.75 / 3270.75 4121.75 / 4121.75 Output Total Balance 1809.25 / 1809.25 3270.75 / 3270.75 4111.75 / 4111.75 Lab / Micro Data 05/15/23 05:53 05/15/23 05:53 Labs: Laboratory Results - last 24 hr 05/15/23 05:53: WBC 9.7, RBC 3.55 L, Hgb 11.3 L, Hct 33.1 L, MCV 93.2, MCH 31.8, MCHC 34.1, RDW Std Deviation 45.6 H, RDW Coeff of Rhina 13.3, Plt Count 281, MPV 10.1, Immature Gran % (Auto) 1.400 H, Neut % (Auto) 81.3 H, Lymph % (Auto) 7.9 L , [place] % (Auto) 8.9, Eos % (Auto) 0.1, Baso % (Auto) 0.4, Absolute Neuts (auto) 7.9 H, Absolute Lymphs (auto) 0.77 L, Nucleated RBC % 0, Sodium 134 L, Potassium 3.8, Chloride 106, Carbon Dioxide 22.0, Anion Gap 6, BUN 13, Creatinine 0.60, Estim Creat Clear Calc 34.02, Est GFR (MDRD) Af Amer 123, Est GFR (MDRD) Non-Af 102, BUN/Creatinine Ratio 21.8 H, Glucose 99, Calcium 8.2 L, Total Bilirubin 2.40 H, AST 47 H, ALT 62 H, Alkaline Phosphatase 624 H, Total Protein 5.5 L, Albumin 2.0 L, Globulin 3.5, Albumin/Globulin Ratio 0.6 L Radiography Diagnostic Testing: Radiology Impression Cholangiogram 05/15/23 14:20 IMPRESSION: 1. Status post fluoroscopic guided cholangiogram. Electronically Signed: Diogo Card MD at 16:13 EDT , Physical Exam Const alert, oriented x3, no apparent distress, average body habitus and healthy appearing General Appearance: cooperative, well kempt and well developed Orientation / Consciousness: awake, oriented to person, oriented to place and oriented to time HEENT normocephalic, head/scalp atraumatic and moist oral mucous membranes Eyes PERRL, EOMs intact bilaterally and conjunctivae normal Neck supple, no JVD, thyroid normal and no carotid bruits General: trachea midline Resp normal respiratory effort, no retractions, no use of accessory muscles and clear to auscultation bilaterally Auscultation: Negative for rales, rhonchi or wheezes Cardio regular rate, regular rhythm, S1 normal heart sound, S2 normal heart sound, no murmurs, no rub and no gallops GI normal to inspection, nondistended, normoactive bowel sounds, soft to palpation, non-tender and non-distended Extremity no clubbing, cyanosis or edema Skin no rashes or lesions noted General Skin Exam: no breakdown Neuro oriented x3, CN's II-XII intact bilaterally, no focal motor deficits and no sensory deficits noted Sensorium / Orientation: awake and alert Speech: speech normal Psych affect normal Assessment & Plan Assessment/Plan (1) Cholecystitis: PLAN: Plan 1. Acute cholecystitis with choledocholithiasis-patient underwent laparoscopic cholecystectomy today, she will undergo removal of stones tomorrow. #2 essential hypertension-patient is on amlodipine #3 hypothyroidism-patient is on Synthroid #4 hyponatremia-etiology unclear, patient's sodium today was 134 #5 moderate pulmonary hypertension-complicates care, medical course, recovery, and prognosis Total clinical time spent by myself addressing the patient's medical issues, reviewing all her data, and collaborating with patient's care team: 35 minutes Charges/Coding Visit Charges Inpatient E&M: 10015 Subs Hosp L2
[2023-05-15] MEDS: oxyCODONE 5 MG Tablet PO (19:43)
[2023-05-15] MEDS: Multivitamin (Healthy Eyes) Capsule 1 CAP PO (21:59)
[2023-05-16] VITALS (11 sets, daily range): BP systolic 121–159; BP diastolic 58–88; PULSE 71–83; RESP 14–20; TEMP 36.4–37.1; O2SAT 94–98; BMI 20.9
[2023-05-16] MEDS: 0.9% Normal Saline 1,000 ML 75 ML IV (05:59)
[2023-05-16] MEDS: Levothyroxine 88 MCG Tablet PO (06:06)
[2023-05-16] MEDS: Ondansetron 4 MG/2 ML Vial IV (06:11)
[2023-05-16] MEDS: oxyCODONE 5 MG Tablet PO (06:11)
[2023-05-16 08:52] LABS: ALB/GLOB Ratio 0.6 RATIO (0.9-2.4); AST(SGOT) 47 U/L (15-37); Alanine Aminotransfer ALT/SGPT 69 U/L (13-56); Albumin, Serum 2.3 g/dL (3.2-5.0); Alkaline Phosphatase 641 U/L (45-117); Anion Gap 5 (5-15); BUN 11 mg/dL (7-18); BUN/Creat Ratio 21.4 RATIO (10-20); Chloride 101 mmol/L (98-107); Creatinine, Serum 0.51 mg/dL (0.55-1.02); EST Glomerular Filtration Rate 121 mL/min (>60); Est Glom Filt Rate - Afr Amer 146 mL/min (>60); Estimated Creatinine Clearance 34.02 ml/min; Globulin 3.9 g/dL (2.2-4.2); Glucose 96 mg/dL (74-106); Potassium 3.4 mmol/L (3.5-5.1); Protein, Total 6.2 g/dL (6.4-8.2); Sodium Level 133 mmol/L (136-145)
--- NOTE | 2023-05-16 08:54 | PCM.PN.SRG ---
Subjective Subjective Patient is an 83 y/o F I am following s/p laparoscopic cholecystectomy with Dr. Tobias on 05/15/23. Patient denies incisional pain/discomfort. Patient denies nausea, vomiting, fever since the procedure. Objective Data Objective Data Vital Signs: Vital Signs Temp Pulse Resp BP Pulse Ox O2 Del Method 98.1 F 81 20 H 156/85 H 96 Room Air 05/16/23 05:36 05/16/23 05:36 05/16/23 05:36 05/16/23 05:36 05/16/23 05:36 05/16/23 05:36 Oxygen Delivery Method Room Air Weight: 117 lb 11.629 oz Body Mass Index (BMI) 20.8 Intake & Output: Intake and Output for Last 24 Hours 05/14/23 05/15/23 05/16/23 23:59 23:59 23:59 Intake Total 3270.75 / 3270.75 4121.75 / 4121.75 1003.75 / 1003.75 Output Total 1660 / 1660 500 / 500 Balance 3270.75 / 3270.75 2461.75 / 2461.75 503.75 / 503.75 Lab / Micro Data 05/15/23 05:53 05/16/23 08:06 Labs: Laboratory Results - last 24 hr 05/16/23 08:06: Sodium 133 L, Potassium 3.4 L, Chloride 101, Carbon Dioxide 27.0, Anion Gap 5, BUN 11, Creatinine 0.51 L, Estim Creat Clear Calc 34.02, Est GFR (MDRD) Af Amer 146, Est GFR (MDRD) Non-Af 121, BUN/Creatinine Ratio 21.4 H, Glucose 96, Calcium 8.0 L, Total Bilirubin 1.80 H, AST 47 H, ALT 69 H, Alkaline Phosphatase 641 H, Total Protein 6.2 L, Albumin 2.3 L, Globulin 3.9, Albumin/Globulin Ratio 0.6 L Radiography Diagnostic Testing: Radiology Impression Cholangiogram 05/15/23 14:20 IMPRESSION: 1. Status post fluoroscopic guided cholangiogram. Electronically Signed: Diogo Card MD at 16:13 EDT , Physical Exam GI GI Narrative: Abdomen- incision c/d/i. No erythema or infection noted. Small amount of dried blood noted on the umbilical op-site. No tenderness noted throughout the abdomen. Assessment & Plan Assessment/Plan (1) Choledocholithiasis: PLAN: I am following this patient in conjunction with Dr. Obregon in Dr. Tobias's absence today Patient seems to be progressing well since surgery There was questioning by Dr. Tobias during yesterday's cholangiogram in regards to a filling defect Dr. Beck will plan to perform an ERCP today to remove the stent and clean out the duct CMP was ordered and reviewed. Liver enzymes appears to have an increase in Alk phos, remaining liver enzymes are trending down. We will continue to monitor this patient Hopeful discharge tomorrow pending outcome of today's ERCP Charges/Coding Visit Charges Inpatient E&M: 87983 Subs Hosp L1 (no charge; post-op)
--- NOTE | 2023-05-16 12:00 | EX.PCM.PN.GI ---
Subjective Subjective Patient denies any abdominal pain. She underwent a cholecystectomy yesterday. She is scheduled today for repeat ERCP due to stones that were dislodged from the cystic duct and transferred into the common bile duct. Objective Data Objective Data Vital Signs: Vital Signs Temp Pulse Resp BP Pulse Ox O2 Del Method 98.7 F 80 14 151/77 H 98 Room Air 05/16/23 15:00 05/16/23 15:00 05/16/23 15:00 05/16/23 15:00 05/16/23 15:00 05/16/23 15:00 Oxygen Delivery Method Room Air Weight: 117 lb 11.629 oz Body Mass Index (BMI) 20.8 Intake & Output: Intake and Output for Last 24 Hours 05/14/23 05/15/23 05/16/23 23:59 23:59 23:59 Intake Total 3270.75 / 3270.75 4121.75 / 4121.75 1053.75 / 1053.75 Output Total 1660 / 1660 500 / 500 Balance 3270.75 / 3270.75 2461.75 / 2461.75 553.75 / 553.75 Lab / Micro Data 05/15/23 05:53 05/16/23 08:06 Labs: Laboratory Results - last 24 hr 05/16/23 08:06: Sodium 133 L, Potassium 3.4 L, Chloride 101, Carbon Dioxide 27.0, Anion Gap 5, BUN 11, Creatinine 0.51 L, Estim Creat Clear Calc 34.02, Est GFR (MDRD) Af Amer 146, Est GFR (MDRD) Non-Af 121, BUN/Creatinine Ratio 21.4 H, Glucose 96, Calcium 8.0 L, Total Bilirubin 1.80 H, AST 47 H, ALT 69 H, Alkaline Phosphatase 641 H, Total Protein 6.2 L, Albumin 2.3 L, Globulin 3.9, Albumin/Globulin Ratio 0.6 L Physical Exam Const alert, oriented x3, no apparent distress and healthy appearing General Appearance: cooperative, well kempt and well developed Orientation / Consciousness: awake, oriented to person, oriented to place and oriented to time HEENT normocephalic and moist oral mucous membranes Eyes PERRL, EOMs intact bilaterally and conjunctivae normal Neck supple, no JVD, thyroid normal and no carotid bruits General: trachea midline Resp normal respiratory effort, no retractions, no use of accessory muscles and clear to auscultation bilaterally Auscultation: Negative for rales, rhonchi or wheezes Cardio regular rate, regular rhythm, S1 normal heart sound, S2 normal heart sound, no murmurs, no rub and no gallops GI normal to inspection, nondistended, normoactive bowel sounds, soft to palpation, non-tender and non-distended Extremity no clubbing, cyanosis or edema Skin no rashes or lesions noted General Skin Exam: no breakdown Neuro oriented x3, CN's II-XII intact bilaterally, no focal motor deficits and no sensory deficits noted Sensorium / Orientation: awake and alert Speech: speech normal Psych affect normal Assessment & Plan Assessment/Plan (1) Choledocholithiasis: PLAN: N.p.o. for stone removal today. Likely patient will not need any stents after the stones room are removed because she had her cholecystectomy. Her alk phos is still elevated along with her AST and ALT. The bilirubin has come down somewhat but I do not suspect that the alk phos will go down until she has the stents and the stones removed. Charges/Coding Visit Charges Inpatient E&M: 06876 Subs Hosp L3
[2023-05-16] MEDS: amLODIPine 2.5 MG Tablet PO (13:54)
--- NOTE | 2023-05-16 15:21 | PCM.PN.HOSP ---
Reason for Visit Reason for Visit: Diagnoses Calculus of bile duct without cholangitis or cholecystitis without obstruction (05/13/23) Cholecystitis, unspecified (05/13/23) Obstruction of bile duct (05/13/23) Subjective Subjective Patient was seen and examined today, she is due to undergo an ERCP today with removal of stones. Patient has no shortness of breath, fever, chills, or chest pain. Objective Data Objective Data Vital Signs: Vital Signs Temp Pulse Resp BP Pulse Ox O2 Del Method 97.9 F 71 14 150/79 H 97 Room Air 05/16/23 09:30 05/16/23 09:30 05/16/23 09:30 05/16/23 09:30 05/16/23 09:30 05/16/23 09:30 Oxygen Delivery Method Room Air Weight: 53.4 kg Body Mass Index (BMI) 20.8 Intake & Output: Intake and Output for Last 24 Hours 05/14/23 05/15/23 05/16/23 23:59 23:59 23:59 Intake Total 3270.75 / 3270.75 4121.75 / 4121.75 1053.75 / 1053.75 Output Total 1660 / 1660 500 / 500 Balance 3270.75 / 3270.75 2461.75 / 2461.75 553.75 / 553.75 Lab / Micro Data 05/15/23 05:53 05/16/23 08:06 Labs: Laboratory Results - last 24 hr 05/16/23 08:06: Sodium 133 L, Potassium 3.4 L, Chloride 101, Carbon Dioxide 27.0, Anion Gap 5, BUN 11, Creatinine 0.51 L, Estim Creat Clear Calc 34.02, Est GFR (MDRD) Af Amer 146, Est GFR (MDRD) Non-Af 121, BUN/Creatinine Ratio 21.4 H, Glucose 96, Calcium 8.0 L, Total Bilirubin 1.80 H, AST 47 H, ALT 69 H, Alkaline Phosphatase 641 H, Total Protein 6.2 L, Albumin 2.3 L, Globulin 3.9, Albumin/Globulin Ratio 0.6 L Radiography Diagnostic Testing: Radiology Impression Cholangiogram 05/15/23 14:20 IMPRESSION: 1. Status post fluoroscopic guided cholangiogram. Electronically Signed: Diogo Card MD at 16:13 EDT Reading Location ID and State: [facility] / [place] , Service support , Physical Exam Const alert, oriented x3, no apparent distress and healthy appearing General Appearance: cooperative, well kempt and well developed Orientation / Consciousness: awake, oriented to person, oriented to place and oriented to time HEENT normocephalic and moist oral mucous membranes Eyes PERRL, EOMs intact bilaterally and conjunctivae normal Neck supple, no JVD, thyroid normal and no carotid bruits General: trachea midline Resp normal respiratory effort, no retractions, no use of accessory muscles and clear to auscultation bilaterally Auscultation: Negative for rales, rhonchi or wheezes Cardio regular rate, regular rhythm, S1 normal heart sound, S2 normal heart sound, no murmurs, no rub and no gallops GI normal to inspection, nondistended, normoactive bowel sounds, soft to palpation, non-tender and non-distended Extremity no clubbing, cyanosis or edema Skin no rashes or lesions noted General Skin Exam: no breakdown Neuro oriented x3, CN's II-XII intact bilaterally, no focal motor deficits and no sensory deficits noted Sensorium / Orientation: awake and alert Speech: speech normal Psych affect normal Assessment & Plan Assessment/Plan (1) Cholecystitis: PLAN: Plan 1. Acute cholecystitis with choledocholithiasis-patient will undergo ERCP today with removal of stones #2 essential hypertension-patient is on amlodipine #3 hypothyroidism-patient is on Synthroid #4 hyponatremia-etiology unclear, patient's sodium today was 133 #5 moderate pulmonary hypertension-complicates care, medical course, recovery, and prognosis #6 hypokalemia-patient's potassium today was 3.4, labs will be rechecked tomorrow Total clinical time spent by myself addressing the patient's medical issues, reviewing all her data, and collaborating with patient's care team: 35 minutes Charges/Coding Visit Charges Inpatient E&M: 27061 Subs Hosp L2
--- NOTE | 2023-05-16 18:15 | RAD_ITS ---
Fluoroscopic-guided ERCP INDICATION: Abdominal pain TECHNIQUE: Fluoroscopic guided ERCP was performed by attending tank filler. 51.7 seconds of fluoroscopic time were utilized during the study. FINDINGS: Fluoroscopic guided images were obtained during the study to confirm findings. For complete information recommend correlation with tank filler procedural notes. Impression Fluoroscopic guided ERCP Electronically Signed: Deon Gates MD at 19:38 EDT , RAD/ERCP Biliary/Pancreas IMPRESSION: undefined
--- NOTE | 2023-05-16 18:40 | OP.ERCP_ITS ---
Patient Name: Jena Kirkpatrick Procedure Date: 05/16/2023 6:08 PM Date of : 1940 Age: 83 Procedure: ERCP Indications: Bile duct stone(s) Providers: Yang Beck DO Medicines: Monitored Anesthesia Care Patient Profile: This is an 83 year old female. Refer to note in patient chart for documentation of history and physical. Patient has symptoms of acute right upper quadrant abdominal pain and acute jaundice. She is status post ERCP for stent and ERCP for stone removal recently. Complications: No immediate complications. Procedure: Pre-Anesthesia Assessment: - Prior to the procedure, a History and Physical was performed, and patient medications and allergies were reviewed. The patient is competent. The risks and benefits of the procedure and the sedation options and risks were discussed with the patient. All questions were answered and informed consent was obtained. Patient identification and proposed procedure were verified by the physician in the pre-procedure area. Mental Status Examination: alert and oriented. Airway Examination: normal oropharyngeal airway and neck mobility. Respiratory Examination: clear to auscultation. CV Examination: normal. Prophylactic Antibiotics: The patient does not require prophylactic antibiotics. Prior Anticoagulants: The patient has taken no previous anticoagulant or antiplatelet agents. ASA Grade Assessment: II - A patient with mild systemic disease. After reviewing the risks and benefits, the patient was deemed in satisfactory condition to undergo the procedure. The anesthesia plan was to use monitored anesthesia care (MAC). Immediately prior to administration of medications, the patient was re-assessed for adequacy to receive sedatives. The heart rate, respiratory rate, oxygen saturations, blood pressure, adequacy of pulmonary ventilation, and response to care were monitored throughout the procedure. The physical status of the patient was re-assessed after the procedure. After obtaining informed consent, the scope was passed under direct vision. Throughout the procedure, the patient's blood pressure, pulse, and oxygen saturations were monitored continuously. The Duodenoscope was introduced through the mouth, and advanced to the duodenum and used to inject contrast into the bile duct. The ERCP was accomplished without difficulty. The patient tolerated the procedure well. Scope In: 6:25:54 PM Scope Out: 6:36:09 PM Total Procedure Duration Time 0 hours 10 minutes 15 seconds Findings: The auction block clerk film was normal. The esophagus was successfully intubated under direct vision. The scope was advanced to a normal major papilla in the descending duodenum without detailed examination of the pharynx, larynx and associated structures, and upper GI tract. The upper GI tract was grossly normal. The bile duct was deeply cannulated with the short-nosed traction sphincterotome. Contrast was injected. I personally interpreted the bile duct images. There was brisk flow of contrast through the ducts. Image quality was excellent. Contrast extended to the entire biliary tree. Placement of a 0.035 inch x 260 cm angled Hydra Jagwire into the biliary tree was attempted. This passed successfully. A 5 mm biliary sphincterotomy was made with a braided traction (standard) sphincterotome using ERBE electrocautery. Moderate bleeding from the sphincterotomy stopped within 5 minutes. The biliary tree was swept with a 12 mm balloon starting at the bifurcation. Sludge was swept from the duct. All stones were removed. One stent was removed from the biliary tree using a rat-toothed forceps. The stent was found to be patent via the water column test. Impression: - Choledocholithiasis was found. Complete removal was accomplished by biliary sphincterotomy and balloon extraction. - A biliary sphincterotomy was performed. - The biliary tree was swept. - One stent was removed from the biliary tree. Procedure Code(s): --- Professional --- 42465, Endoscopic retrograde cholangiopancreatography (ERCP); with removal of foreign body(s) or stent(s) from biliary/pancreatic duct(s) 31711, Endoscopic retrograde cholangiopancreatography (ERCP); with removal of calculi/debris from biliary/pancreatic duct(s) 08378, Endoscopic retrograde cholangiopancreatography (ERCP); with sphincterotomy/papillotomy 73154, 26, Endoscopic catheterization of the biliary ductal system, radiological supervision and interpretation CPT copyright 2017 [employer]. All rights reserved. The codes documented in this report are preliminary and upon intelligence group supervisor review may be revised to meet current compliance requirements. Yang Beck DO 05/16/2023 6:40:28 PM This report has been signed electronically. Number of Addenda: 0 Note Initiated On: 05/16/2023 6:08 PM
--- NOTE | 2023-05-16 18:41 | OP.CCLET_ITS ---
05/16/2023 Arlin Sarah Re : ERCP procedure for Jena Kirkpatrick Dear Ubaldo This procedure was performed on Tuesday, May 16, 2023. My impressions and recommendations are as follows: Impressions : - Choledocholithiasis was found. Complete removal was accomplished by biliary sphincterotomy and balloon extraction. - A biliary sphincterotomy was performed. - The biliary tree was swept. - One stent was removed from the biliary tree. Recommendations : My findings are described in the full procedure note, which is enclosed. If I can be of further assistance, please feel free to contact me at . Sincerely, Yang Beck, 05/16/2023 6:40:28 PM This report has been signed electronically.
[2023-05-16] MEDS: 0.9% Saline Lock 10 ML Syringe IV (21:10)
[2023-05-16] MEDS: Multivitamin (Healthy Eyes) Capsule 1 CAP PO (21:11)
[2023-05-17] MEDS: 0.9% Normal Saline 1,000 ML 75 ML IV (02:03)
[2023-05-17 02:06] VITALS: BP 156/87; PULSE 66; RESP 16; TEMP 36.5; O2SAT 96
[2023-05-17 02:08] VITALS: BMI 20.9
[2023-05-17] MEDS: Ibuprofen 200 MG Tablet PO (05:17)
[2023-05-17] MEDS: Levothyroxine 88 MCG Tablet PO (05:31)
[2023-05-17 06:11] LABS: ALB/GLOB Ratio 0.6 RATIO (0.9-2.4); AST(SGOT) 66 U/L (15-37); Alanine Aminotransfer ALT/SGPT 78 U/L (13-56); Albumin, Serum 2.3 g/dL (3.2-5.0); Alkaline Phosphatase 601 U/L (45-117); Anion Gap 7 (5-15); BUN 9 mg/dL (7-18); BUN/Creat Ratio 17.5 RATIO (10-20); Chloride 101 mmol/L (98-107); Creatinine, Serum 0.51 mg/dL (0.55-1.02); EST Glomerular Filtration Rate 121 mL/min (>60); Est Glom Filt Rate - Afr Amer 146 mL/min (>60); Estimated Creatinine Clearance 34.02 ml/min; Globulin 3.9 g/dL (2.2-4.2); Glucose 70 mg/dL (74-106); Protein, Total 6.2 g/dL (6.4-8.2); Sodium Level 133 mmol/L (136-145)
[2023-05-17 06:47] VITALS: BP 166/88; PULSE 75; RESP 18; TEMP 36.5; O2SAT 98; BMI 20.9
[2023-05-17] MEDS: amLODIPine 2.5 MG Tablet PO (09:13)
[2023-05-17] MEDS: Multivitamin (Healthy Eyes) Capsule 1 CAP PO (09:13)
[2023-05-17] MEDS: Cholecalciferol (VIT D3) 25 MCG TABLET (1,000 UNITS) 50 MCG PO (09:13)
[2023-05-17] MEDS: Calcium Carb/Vitamin D 1 TABLET Tablet PO (09:14)
[2023-05-17] MEDS: Multivitamins,Ther W-Minerals Tablet 1 TABLET PO (09:14)
[2023-05-17] MEDS: Potassium Chloride Oral Tablet 20 MEQ 40 MEQ PO (09:14)
--- NOTE | 2023-05-17 09:26 | PCM.PN.SRG ---
Subjective Subjective Status post ERCP and removal of stone/sludge yesterday and also removal of stent. Patient denies any abdominal pain nausea or vomiting. Objective Data Objective Data Vital Signs: Vital Signs Temp Pulse Resp BP Pulse Ox O2 Del Method 97.7 F L 75 18 166/88 H 98 Room Air 05/17/23 06:47 05/17/23 06:47 05/17/23 06:47 05/17/23 06:47 05/17/23 06:47 05/17/23 08:46 Oxygen Delivery Method Room Air Weight: 117 lb 11.629 oz Body Mass Index (BMI) 20.8 Intake & Output: Intake and Output for Last 24 Hours 05/15/23 05/16/23 05/17/23 23:59 23:59 23:59 Intake Total 4121.75 / 4121.75 2122.25 / 2122.25 314.25 / 314.25 Output Total 1660 / 1660 500 / 500 Balance 2461.75 / 2461.75 1622.25 / 1622.25 314.25 / 314.25 Lab / Micro Data 05/15/23 05:53 05/17/23 05:33 Labs: Laboratory Results - last 24 hr 05/17/23 05:33: Sodium 133 L, Potassium 3.0 L, Chloride 101, Carbon Dioxide 25.0, Anion Gap 7, BUN 9, Creatinine 0.51 L, Estim Creat Clear Calc 34.02, Est GFR (MDRD) Af Amer 146, Est GFR (MDRD) Non-Af 121, BUN/Creatinine Ratio 17.5, Glucose 70 L, Calcium 8.0 L, Total Bilirubin 2.00 H, AST 66 H, ALT 78 H, Alkaline Phosphatase 601 H, Total Protein 6.2 L, Albumin 2.3 L, Globulin 3.9, Albumin/Globulin Ratio 0.6 L Radiography Diagnostic Testing: Radiology Impression Endo Retro Cholangiopancreatogram 05/16/23 18:15 IMPRESSION: undefined Physical Exam Resp normal respiratory effort Cardio regular rate GI GI Narrative: Abdomen: Soft, nondistended, tender near incision's dressed clean dry and intact, no peritoneal signs Assessment & Plan Assessment/Plan (1) Cholecystitis: (2) Choledocholithiasis: PLAN: Plan Patient doing well okay to CT from general surgery standpoint. Nicole Tobias M.D. Pager: [phone] [facility] [address] [place] [address], [address] [place] [address] Office: [phone]
--- NOTE | 2023-05-17 09:27 | DCINST_ITS ---
Discharge Instructions Diet Discharge Diet: Light diet - advance as tolerated Activity Discharge Activity: May Not Drive (while taking narcotic pain medications.) May shower in (days): 1 Lifting Restrictions: no lifting >20 lbs x 2 wks, no strenuous exercise for 4 wks Dressing / Incision Call your doctor if your incision/area has: Continuous Slow Oozing, Sudden Increased Bleeding, Increased Pain/ Swelling, Increased Redness, Foul Smelling Discharge and Swelling at the incision site Call your doctor if you observe: Fever of 101 or Higher Remove Dressing in: 2 days Cleanse incision/area with: Soap & Water Additional Dressing/Incision Instructions:: Steri-Strips will fall off in 7 to 10 days, if they do not fall off okay to remove after 10 days. Follow Up Care Please Follow Up With: Nicole Tobias MD When: Call the office for a follow-up appointment 2 weeks; after 5 PM and on the weekends call [phone] with any concerns. Test Results: Test results from this visit will be discussed in further detail at your follow- up appointment, if applicable. Discharge Plan Admission Admit Date/Time: 05/13/23 12:48 Attending Provider: Rojas Louis Primary Care Provider: Martina Conner Consulting Providers: Nicole Tobias; Lauren Rivera Discharge Orders/Prescriptions Prescriptions: No Action cholecalciferol (vitamin D3) 50 mcg (2,000 unit) capsule 50 mcg PO DAILY alendronate 70 mg tablet 70 mg PO QWEEK Hair,Skin and Nails Tablet 1 tab PO DAILY multivitamin Tablet 1 tab PO DAILY PreserVision AREDS [id number] capsule 1 cap PO BID vitamin B complex Tablet 1 tab PO DAILY levothyroxine [Synthroid] 88 mcg tablet 88 mcg PO DAILY Systane Balance 0.6 % drops 1 drp ophthalmic (eye) DAILY PRN (Reason: dry eye(s)) Excedrin Extra Strength 250-250-65 mg tablet 1 tab PO ONCE PRN (Reason: pain) naproxen sodium [Aleve] 220 mg capsule 220 mg PO BID PRN (Reason: pain) calcium carbonate-vitamin D3 [Calcium 500 + D] 500 mg-10 mcg (400 unit) tablet 1 tab PO DAILY amlodipine 2.5 mg tablet 2.5 mg PO DAILY omega-3 fatty acids Capsule 1,000 mg PO DAILY Referrals / Follow Up: Martina Conner, SUPERVISOR [employer]ING-[employer] [Primary Care Provider] -
[2023-05-17 11:34] VITALS: BP 127/74; PULSE 70; RESP 18; TEMP 36.8; O2SAT 100; BMI 20.9
--- NOTE | 2023-05-17 11:51 | DCINST_ITS ---
Discharge Instructions Diet Discharge Diet: Light diet - advance as tolerated Activity May shower in (days): 1 Dressing / Incision Call your doctor if your incision/area has: Continuous Slow Oozing, Sudden Increased Bleeding, Increased Pain/ Swelling, Increased Redness, Foul Smelling Discharge and Swelling at the incision site Call your doctor if you observe: Fever of 101 or Higher Cleanse incision/area with: Soap & Water Additional Dressing/Incision Instructions:: Steri-Strips will fall off in 7 to 10 days, if they do not fall off okay to remove after 10 days. Follow Up Care Please Follow Up With: Nicole Tobias MD Test Results: Test results from this visit will be discussed in further detail at your follow- up appointment, if applicable. Discharge Plan Admission Admit Date/Time: 05/13/23 12:48 Primary Reason for Your Visit: Cholecystitis, gallstones Attending Provider: Rojas Louis Primary Care Provider: Martina Conner Consulting Providers: Nicole Tobias; Lauren Rivera Discharge Orders/Prescriptions Prescriptions: Continued cholecalciferol (vitamin D3) 50 mcg (2,000 unit) capsule 50 mcg PO DAILY alendronate 70 mg tablet 70 mg PO QWEEK Hair,Skin and Nails Tablet 1 tab PO DAILY multivitamin Tablet 1 tab PO DAILY PreserVision AREDS [id number] capsule 1 cap PO BID vitamin B complex Tablet 1 tab PO DAILY levothyroxine [Synthroid] 88 mcg tablet 88 mcg PO DAILY Systane Balance 0.6 % drops 1 drp ophthalmic (eye) DAILY PRN (Reason: dry eye(s)) Excedrin Extra Strength 250-250-65 mg tablet 1 tab PO ONCE PRN (Reason: pain) naproxen sodium [Aleve] 220 mg capsule 220 mg PO BID PRN (Reason: pain) calcium carbonate-vitamin D3 [Calcium 500 + D] 500 mg-10 mcg (400 unit) tablet 1 tab PO DAILY amlodipine 2.5 mg tablet 2.5 mg PO DAILY omega-3 fatty acids Capsule 1,000 mg PO DAILY Referrals / Follow Up: Nicole Tobias MD [Med Staff - Active Staff] - See Referral Note (two weeks) Martina Conner, WELDING PROCESS ENGINEER-C [Primary Care Provider] - Disposition Disposition (needs filled in before D/C Order can be placed): Home, Self Care
--- NOTE | 2023-05-17 11:54 | PCM.DC.SUM ---
Providers Date of Admission: 05/13/23 Date of Discharge: 05/17/23 Primary Care Physician: SHILPI Sarah Consultations 05/13/23 13:33 Consult: Gastroenterology Routine Consulting Provider: [facility] Reason for Consult: acute choledocholithiais EMERGENT Consult: No Notified: Yes Date Notified: 05/13/23 Time Notified: 12:52 Method of Notification: Text Consult: General Surgery Routine Consulting Provider: Nicole Tobias Reason for Consult: acute cholelithiasis EMERGENT Consult: No Notified: Yes Date Notified: 05/13/23 Time Notified: 12:52 Method of Notification: Text Reason For Visit: ACUTE CHOLELITHIASIS & CHOLEDOCHOLITHIASIS Diagnosis Discharge Diagnosis (1) Cholecystitis: Status: Acute Code(s): K81.9 - Cholecystitis, unspecified (2) Choledocholithiasis: Status: Acute Code(s): K80.50 - Calculus of bile duct without cholangitis or cholecystitis without obstruction Plan 1. Acute cholecystitis with choledocholithiasis-patient will undergo ERCP today with removal of stones #2 essential hypertension-patient is on amlodipine #3 hypothyroidism-patient is on Synthroid #4 hyponatremia-etiology unclear, patient's sodium today was 133 #5 moderate pulmonary hypertension-complicates care, medical course, recovery, and prognosis #6 hypokalemia-patient's potassium today was 3.4, labs will be rechecked tomorrow Total clinical time spent by myself addressing the patient's medical issues, reviewing all her data, and collaborating with patient's care team: 35 minutes Medications at Discharge Home Medications alendronate 70 mg tablet 70 mg PO QWEEK OSTEOPOROSIS 03/01/22 cholecalciferol (vitamin D3) 50 mcg (2,000 unit) capsule 50 mcg PO DAILY 03/01/22 multivitamin 1 tab PO DAILY SUPPLEMENT 03/01/22 multivitamin with minerals (Hair,Skin and Nails tablet) 1 tab PO DAILY SUPPLEMENT 03/01/22 vitamin B complex 1 tab PO DAILY SUPPLEMENT 03/01/22 vitamins A,C,U-vfro-aimiis 4,296 mcg-226 mg-90 mg capsule (PreserVision AREDS) 1 cap PO BID EYE HEALTH 03/01/22 pfetrct-onrvbtvgfuowu-idzgmyaz 250 mg-250 mg-65 mg tablet (Excedrin Extra Strength) 1 tab PO ONCE PRN pain 03/03/22 naproxen sodium 220 mg capsule (Aleve) 220 mg PO BID PRN pain 03/03/22 propylene glycol 0.6 % eye drops (Systane Balance) 1 drp ophthalmic (eye) DAILY PRN dry eye(s) 03/03/22 calcium carbonate 500 mg-vitamin D3 10 mcg (400 unit) tablet (Calcium 500 + D) 1 tab PO DAILY SUPPLEMENT 06/01/22 amlodipine 2.5 mg tablet 2.5 mg PO DAILY BLOOD PRESSURE 12/29/22 levothyroxine 88 mcg tablet (Synthroid) 88 mcg PO DAILY THYROID 12/29/22 omega-3 fatty acids 1,000 mg PO DAILY SUPPLEMENT 05/13/23 Hospital Course Operations cholecystecomy and - Procedures - (ERCP with removal of common bile duct stones) Summary of Care Provided Minutes Spent on Discharge: 31 Hospital Course: This 83-year-old white female was seen in the emergency room at [facility] with complaints of mid lower abdominal pain times several days. Work-up in the emergency room included a CBC which showed an elevated white blood cell count at 15, CT of the abdomen and pelvis revealed abnormal intrahepatic and extrahepatic ductal dilatation secondary to probable 3 stack of obstructing gallstones and distal common bile duct, there is noted to be gallbladder dilation containing 1.7 cm gallstone. Patient was admitted to [place] [id number] and placed on IV antibiotics, she was seen in consultation by general surgery and gastroenterology, patient underwent a laparoscopic cholecystectomy and an ERCP the following day which resulted in removal of multiple stones from the common bile duct. Patient did well during her hospital stay and there were no major complications. On 05/17/2023, patient was seen and examined: On examination she appeared in good health and spirits, she does not appear to be in any distress. Vital signs as documented. Skin warm and dry and without overt rashes. Neck without JVD, thyroid appears normal, trachea is midline, neck is supple. Lungs clear, normal air movement was noted. Heart exam notable for regular rhythm, normal sounds and absence of murmurs, rubs or gallops. Abdomen unremarkable and without evidence of organomegaly, masses, or abdominal aortic enlargement, bowel sounds are present in all 4 quadrants, no abdominal tenderness was noted. Extremities nonedematous, no cyanosis was noted, no clubbing was noted. Neuro: Cranial nerves II through XII are grossly intact, no focal motor deficits were noted, sensation to light touch and pinprick is intact, motor exam 5/5 throughout. Psych: Patient is alert and oriented x3, she does not appear anxious or depressed, she does not appear agitated. Patient appears stable for discharge home on 05/17/2023. Weight / BMI Weight Weight: 53.4 kg Body Mass Index (BMI) 20.8 ABG / Lab / Microbiology Data 05/15/23 05:53 05/17/23 05:33 Laboratory: Laboratory Results - last 24 hr 05/17/23 05:33: Sodium 133 L, Potassium 3.0 L, Chloride 101, Carbon Dioxide 25.0, Anion Gap 7, BUN 9, Creatinine 0.51 L, Estim Creat Clear Calc 34.02, Est GFR (MDRD) Af Amer 146, Est GFR (MDRD) Non-Af 121, BUN/Creatinine Ratio 17.5, Glucose 70 L, Calcium 8.0 L, Total Bilirubin 2.00 H, AST 66 H, ALT 78 H, Alkaline Phosphatase 601 H, Total Protein 6.2 L, Albumin 2.3 L, Globulin 3.9, Albumin/Globulin Ratio 0.6 L Radiography Diagnostic Testing: Radiology Impression Endo Retro Cholangiopancreatogram 05/16/23 18:15 IMPRESSION: undefined D/C Instructions Discharge Diet: Light diet - advance as tolerated May shower in (days): 1 Call your doctor if your incision/area has: Continuous Slow Oozing, Sudden Increased Bleeding, Increased Pain/ Swelling, Increased Redness, Foul Smelling Discharge and Swelling at the incision site Call your doctor if you observe: Fever of 101 or Higher Cleanse incision/area with: Soap & Water Additional Dressing/Incision Instructions: Steri-Strips will fall off in 7 to 10 days, if they do not fall off okay to remove after 10 days. Please Follow Up With: Nicole Tobias MD When: Call the office for a follow-up appointment 2 weeks; after 5 PM and on the weekends call [phone] with any concerns. Meaningful Use Info Meaningful Use Diagnoses (Choose all that apply): None applicable Discharge Plan Admission Admit Date/Time: 05/13/23 12:48 Primary Reason for Your Visit: Cholecystitis, gallstones Attending Provider: Rojas Louis Primary Care Provider: Martina Conner Consulting Providers: Nicole Tobias; Lauren Rivera Discharge Orders/Prescriptions Prescriptions: Continued cholecalciferol (vitamin D3) 50 mcg (2,000 unit) capsule 50 mcg PO DAILY alendronate 70 mg tablet 70 mg PO QWEEK Hair,Skin and Nails Tablet 1 tab PO DAILY multivitamin Tablet 1 tab PO DAILY PreserVision AREDS 14,320-226-200 lmvg-ji-majo capsule 1 cap PO BID vitamin B complex Tablet 1 tab PO DAILY levothyroxine [Synthroid] 88 mcg tablet 88 mcg PO DAILY Systane Balance 0.6 % drops 1 drp ophthalmic (eye) DAILY PRN (Reason: dry eye(s)) Excedrin Extra Strength 250-250-65 mg tablet 1 tab PO ONCE PRN (Reason: pain) naproxen sodium [Aleve] 220 mg capsule 220 mg PO BID PRN (Reason: pain) calcium carbonate-vitamin D3 [Calcium 500 + D] 500 mg-10 mcg (400 unit) tablet 1 tab PO DAILY amlodipine 2.5 mg tablet 2.5 mg PO DAILY omega-3 fatty acids Capsule 1,000 mg PO DAILY Referrals / Follow Up: Nicole Tobias MD [Med Staff - Active Staff] - See Referral Note (two weeks) Martina Conner MILITARY TECHNICIAN-C [Primary Care Provider] - Disposition Disposition (needs filled in before D/C Order can be placed): Home, Self Care Charges/Coding Visit Charges Inpatient E&M: 49212 Disch Hosp >30min
--- NOTE | 2023-05-17 12:01 | PHA.DC.MR.R ---
Pharmacy MS Med Reconciliation Pharmacy Service has performed discharge medication reconciliation for this patient. The patient's discharge medication list was reviewed for discrepancies and discrepancies were resolved. Medications at Discharge Home Medications alendronate 70 mg tablet 70 mg PO QWEEK OSTEOPOROSIS 03/01/22 cholecalciferol (vitamin D3) 50 mcg (2,000 unit) capsule 50 mcg PO DAILY 03/01/22 multivitamin 1 tab PO DAILY SUPPLEMENT 03/01/22 multivitamin with minerals (Hair,Skin and Nails tablet) 1 tab PO DAILY SUPPLEMENT 03/01/22 vitamin B complex 1 tab PO DAILY SUPPLEMENT 03/01/22 vitamins A,C,Y-cdjx-pccnjn 4,296 mcg-226 mg-90 mg capsule (PreserVision AREDS) 1 cap PO BID EYE HEALTH 03/01/22 pyfgyho-axyoebssmwilo-vdjmofqu 250 mg-250 mg-65 mg tablet (Excedrin Extra Strength) 1 tab PO ONCE PRN pain 03/03/22 naproxen sodium 220 mg capsule (Aleve) 220 mg PO BID PRN pain 03/03/22 propylene glycol 0.6 % eye drops (Systane Balance) 1 drp ophthalmic (eye) DAILY PRN dry eye(s) 03/03/22 calcium carbonate 500 mg-vitamin D3 10 mcg (400 unit) tablet (Calcium 500 + D) 1 tab PO DAILY SUPPLEMENT 06/01/22 amlodipine 2.5 mg tablet 2.5 mg PO DAILY BLOOD PRESSURE 12/29/22 levothyroxine 88 mcg tablet (Synthroid) 88 mcg PO DAILY THYROID 12/29/22 omega-3 fatty acids 1,000 mg PO DAILY SUPPLEMENT 05/13/23
--- NOTE | 2023-05-17 12:02 | CASEMGMT ---
DARYA CM into pt room, pt sitting up in bed, pt denies any homegoing needs. She states she feels strong and safe to go home and has been ambulating the halls.
[2023-05-17] MEDS: Enoxaparin 40 MG/0.4 ML Syringe SC (14:00)
[2023-05-17] MEDS: Omega-3 Acid Ethyl Esters 1 GM Capsule PO (14:38)
[2023-05-17] MEDS: Vitamin B Comp W-C Capsule 1 CAP PO (14:38)
[2023-05-17 15:55] VITALS: BP 134/61; PULSE 81; RESP 18; TEMP 36.7; O2SAT 97
--- NOTE | 2023-05-17 17:15 | EX.PCM.PN.GI ---
Subjective Subjective Patient underwent ERCP yesterday. She had stones removed and stent removed yesterday. She does not have any abdominal pain when eating today. Objective Data Objective Data Vital Signs: Vital Signs Temp Pulse Resp BP Pulse Ox O2 Del Method 98.1 F 81 18 134/61 H 97 Room Air 05/17/23 15:55 05/17/23 15:55 05/17/23 15:55 05/17/23 15:55 05/17/23 15:55 05/17/23 15:55 Oxygen Delivery Method Room Air Weight: 117 lb 11.629 oz Body Mass Index (BMI) 20.8 Intake & Output: Intake and Output for Last 24 Hours 05/15/23 05/16/23 05/17/23 23:59 23:59 23:59 Intake Total 4121.75 / 4121.75 2122.25 / 2122.25 814.25 / 814.25 Output Total 1660 / 1660 500 / 500 Balance 2461.75 / 2461.75 1622.25 / 1622.25 814.25 / 814.25 Lab / Micro Data 05/15/23 05:53 05/17/23 05:33 Labs: Laboratory Results - last 24 hr 05/17/23 05:33: Sodium 133 L, Potassium 3.0 L, Chloride 101, Carbon Dioxide 25.0, Anion Gap 7, BUN 9, Creatinine 0.51 L, Estim Creat Clear Calc 34.02, Est GFR (MDRD) Af Amer 146, Est GFR (MDRD) Non-Af 121, BUN/Creatinine Ratio 17.5, Glucose 70 L, Calcium 8.0 L, Total Bilirubin 2.00 H, AST 66 H, ALT 78 H, Alkaline Phosphatase 601 H, Total Protein 6.2 L, Albumin 2.3 L, Globulin 3.9, Albumin/Globulin Ratio 0.6 L Radiography Diagnostic Testing: Radiology Impression Endo Retro Cholangiopancreatogram 05/16/23 18:15 IMPRESSION: undefined Physical Exam Resp normal respiratory effort Cardio regular rate GI GI Narrative: Abdomen: Soft, nondistended, tender near incision's dressed clean dry and intact, no peritoneal signs Assessment & Plan Assessment/Plan (1) Choledocholithiasis: PLAN: Status post removal of all common bile duct stones and common bile duct stent. Recommend to repeat LFTs in approximately 5 days. Charges/Coding Visit Charges Inpatient E&M: 20384 Subs Hosp L2
== END 2023-05-17 16:00 | disposition home or self-care (01) | DRG 418 ==
LOC: ED 12:27 → MS3 13:08
PROVIDERS: Internal Medicine Gastroenterology; Surgery; Admitting Provider Student in an Organized Health Care Education/Training Program; Emergency Provider Emergency Medicine; PCP Nurse Practitioner Family; Visit Provider Internal Medicine
PROC: (CPT 43260; principal; 2023-05-14 08:00)
PROC: 0FT44ZZ Resection of Gallbladder, Percutaneous Endoscopic Approach (ICD-10-PCS; CPT 47610; principal; 2023-05-15 13:10)
PROC: 0FC98ZZ Extirpation of Matter from Common Bile Duct, Via Natural or Artificial Opening Endoscopic (ICD-10-PCS; CPT 43260; principal; 2023-05-16 17:10)
DX: K80.63 Calculus of gallbladder and bile duct with acute cholecystitis with obstruction (principal); E87.1 Hypo-osmolality and hyponatremia; I27.21 Secondary pulmonary arterial hypertension; E03.9 Hypothyroidism, unspecified; I10 Essential (primary) hypertension; E78.5 Hyperlipidemia, unspecified; E87.6 Hypokalemia; Z79.83 Long term (current) use of bisphosphonates; Z79.899 Other long term (current) drug therapy; Z86.73 Personal history of transient ischemic attack (TIA), and cerebral infarction without residual deficits
CPT/HCPCS: 36415; 74177; 74300; 74330; 76000; 80048; 80053; 80076; 81001; 83690; 83735; 85025; 85610; 85730; 88304; 97110; 97161; 97166; 97530; 97535; 99285; J7030; J7040; J7050; Q9967; A4216; J2405

== ENCOUNTER → 2023-06-26 | Outpatient (CLI) | payer MEDICARE, BC, SELFPAY ==
[2023-06-26 10:42] LABS: ALB/GLOB Ratio 1.1 RATIO (0.9-2.4); AST(SGOT) 28 U/L (15-37); Alanine Aminotransfer ALT/SGPT 30 U/L (13-56); Albumin, Serum 3.4 g/dL (3.2-5.0); Alkaline Phosphatase 146 U/L (45-117); Anion Gap 5 (5-15); BUN 17 mg/dL (7-18); BUN/Creat Ratio 27.7 RATIO (10-20); Calcium,Total 8.7 mg/dL (8.5-10.1); Chloride 104 mmol/L (98-107); Cholesterol 178 mg/dL (200); Creatinine, Serum 0.61 mg/dL (0.55-1.02); EST Glomerular Filtration Rate 99 mL/min (>60); Est Glom Filt Rate - Afr Amer 119 mL/min (>60); Globulin 3.2 g/dL (2.2-4.2); Glucose 83 mg/dL (74-106); High Density Lipoprotein 87 mg/dL; Potassium 3.8 mmol/L (3.5-5.1); Protein, Total 6.6 g/dL (6.4-8.2); Sodium Level 137 mmol/L (136-145); T4 Free Direct 1.17 ng/dL (0.76-1.46); Thyroid Stim Hormone (TSH) 6.29 uIU/mL (0.358-3.74); Triglycerides 44 mg/dL; Very Low Density Lipoprotein 9 mg/dL (5-40)
== END | disposition home or self-care (01) ==
LOC: MTLAB 07:05
PROVIDERS: PCP Nurse Practitioner Family; Referring Provider Nurse Practitioner Family; Visit Provider Nurse Practitioner Family
DX: E78.5 Hyperlipidemia, unspecified (principal); E03.9 Hypothyroidism, unspecified; I10 Essential (primary) hypertension
CPT/HCPCS: 36415; 80053; 80061; 84439; 84443

== ENCOUNTER → 2023-08-03 | Outpatient (CLI) | payer MEDICARE, BC, SELFPAY ==
[2023-08-03 11:28] LABS: Thyroid Stim Hormone (TSH) 6.25 uIU/mL (0.358-3.74)
== END | disposition home or self-care (01) ==
LOC: MTLAB 08:51
PROVIDERS: PCP Nurse Practitioner Family; Referring Provider Nurse Practitioner Family; Visit Provider Nurse Practitioner Family
DX: E03.9 Hypothyroidism, unspecified (principal)
CPT/HCPCS: 36415; 84443

== ENCOUNTER → 2023-11-15 | Outpatient (CLI) | payer MEDICARE, BC, SELFPAY ==
[2023-11-15 11:00] LABS: Free T3 1.8 pg/mL (2.18-3.98); T4 Free Direct 1.18 ng/dL (0.76-1.46)
== END | disposition home or self-care (01) ==
PROVIDERS: PCP Nurse Practitioner Family; Referring Provider Nurse Practitioner Family; Visit Provider Nurse Practitioner Family
DX: E03.9 Hypothyroidism, unspecified (principal)
CPT/HCPCS: 36415; 84439; 84443; 84481

== ENCOUNTER → 2024-01-09 | Outpatient (CLI) | payer MEDICARE, BC, SELFPAY ==
[2024-01-09 10:56] LABS: ALB/GLOB Ratio 1.3 RATIO (0.9-2.4); AST(SGOT) 31 U/L (15-37); Alanine Aminotransfer ALT/SGPT 28 U/L (13-56); Albumin, Serum 3.8 g/dL (3.2-5.0); Alkaline Phosphatase 75 U/L (45-117); Anion Gap 8 (5-15); BUN 20 mg/dL (7-18); Calcium,Total 9.2 mg/dL (8.5-10.1); Chloride 103 mmol/L (98-107); Creatinine, Serum 0.83 mg/dL (0.55-1.02); EST Glomerular Filtration Rate 69 mL/min (>60); Est Glom Filt Rate - Afr Amer 83 mL/min (>60); Glucose 90 mg/dL (74-106); Potassium 4.2 mmol/L (3.5-5.1); Protein, Total 6.8 g/dL (6.4-8.2); Sodium Level 138 mmol/L (136-145)
[2024-01-09 11:01] LABS: Color, Urine Yellow (Yellow); Glucose, Dipstick Normal (Normal); Ketone-Dipstick Negative (Negative); Leukocyte Esterase-Dipstick 25 /ul (Negative); Nitrite-Dipstick Negative (Negative); Occult Blood-Urine Negative /ul (Negative); Protein-Dipstick Negative (Negative); Urine Bilirubin Dipstick Negative (Negative); Urine Clarity Sl. Cloudy (Clear); Urine Urobilinogen Normal (Normal)
== END | disposition home or self-care (01) ==
LOC: MTLAB 08:50
PROVIDERS: PCP Nurse Practitioner Family; Referring Provider Nurse Practitioner Family; Visit Provider Nurse Practitioner Family
DX: R17 Unspecified jaundice (principal); I10 Essential (primary) hypertension
CPT/HCPCS: 36415; 80053; 81002

== ENCOUNTER → 2024-04-04 | Outpatient (CLI) | payer MEDICARE, BC, SELFPAY ==
[2024-04-04 07:09] LABS: Red Blood Cells-Urine 0 SEEN /hpf (0-5)
[2024-04-04 07:10] LABS: Mucous, Urine 0 SEEN /hpf (<or=2+)
[2024-04-04 09:49] LABS: Absolute Lymphocyte Count 1.45 X10^3/uL (0.83-4.51); Absolute Neutrophil Count 1.8 X10^3/uL (2.0-7.7); Basophil# 0.07 X10^3/uL; Basophil% 1.5 % (0-1); Eosinophil# 0.62 X10^3/uL; Eosinophils% 13.7 % (0-5); Hematocrit 37.8 % (37-47); Hemoglobin 12.9 g/dL (12.0-15.0); Lymphocyte # 1.45 X10^3/ul (0.83-4.51); Mean Corp Hgb Conc 34.1 g/dL (32-36); Mean Corpuscular Hgb 31.7 pg (27.0-32.0); Mean Corpuscular Volume 92.9 fL (81-99); Mean Platelet Vol. 10.5 fl (6.2-12.0); Monocyte# 0.63 X10^3/uL; Monocyte% 13.9 % (0-10); NRBC Flagged by Analyzer 0 % (0-5); Neutrophil # 1.75 X10^3/uL (2.7-7.7); Neutrophil % 38.7 % (47-70); Platelet Count 316 K/mm3 (150-450); RBC Distribution Width CV 11.9 % (11.6-14.6); RBC Distribution Width SD 40.7 fl (35.1-43.9); Red Blood Count 4.07 M/mm3 (4.2-5.4); White Blood Count 4.5 K/mm3 (4.4-11.0)
[2024-04-04 09:59] LABS: Color, Urine Yellow (Yellow); Glucose, Dipstick Normal (Normal); Ketone-Dipstick Negative (Negative); Leukocyte Esterase-Dipstick 25 /ul (Negative); Nitrite-Dipstick Negative (Negative); Occult Blood-Urine Negative /ul (Negative); Protein-Dipstick Negative (Negative); Specific Gravity, Urine 1.015 (1.002-1.030); Urine Bilirubin Dipstick Negative (Negative); Urine Clarity Cloudy (Clear); Urine Urobilinogen Normal (Normal)
[2024-04-04 10:11] LABS: Bacteria 3+ /hpf (None Seen); Hepatitis B Surface Antibody Reactive; Hyaline Cast 0-5 SEEN /lpf (0-5)
[2024-04-04 10:12] LABS: Amorphous Sediment 1+; Squamous Epithelial Cells - UA 0-5 SEEN /hpf (5-10); White Blood Cells 0-5 SEEN /hpf (0-5)
[2024-04-04 10:15] LABS: Transitional Epithelial - Ur 0-5 SEEN /hpf (0-5)
[2024-04-04 11:23] LABS: Anion Gap 10 (5-15); BUN 15 mg/dL (7-18); BUN/Creat Ratio 19.4 RATIO (10-20); Calcium,Total 9.5 mg/dL (8.5-10.1); Chloride 100 mmol/L (98-107); Cholesterol 162 mg/dL (200); Creatinine, Serum 0.77 mg/dL (0.55-1.02); EST Glomerular Filtration Rate 75 mL/min (>60); Est Glom Filt Rate - Afr Amer 91 mL/min (>60); Glucose 90 mg/dL (74-106); High Density Lipoprotein 83 mg/dL; Potassium 4.2 mmol/L (3.5-5.1); Sodium Level 135 mmol/L (136-145); Thyroid Stim Hormone (TSH) 1.24 uIU/mL (0.358-3.74); Triglycerides 46 mg/dL; Very Low Density Lipoprotein 9 mg/dL (5-40)
[2024-04-05 05:07] LABS: HEPATITIS B SURFACE AG Negative (Negative); Hep C Antibodies Non Reactive (Non Reactive); Hepatitis A AB, Total Positive (Negative); Hepatitis A IgM Antibody Negative (Negative); Hepatitis B Core AB IgM Negative (Negative)
== END | disposition home or self-care (01) ==
LOC: MTLAB 07:06
PROVIDERS: PCP Nurse Practitioner Family; Referring Provider Nurse Practitioner Family; Visit Provider Nurse Practitioner Family
DX: E78.5 Hyperlipidemia, unspecified (principal); R17 Unspecified jaundice; I10 Essential (primary) hypertension; M54.9 Dorsalgia, unspecified; E03.9 Hypothyroidism, unspecified
CPT/HCPCS: 36415; 80048; 80061; 80074; 81001; 84443; 85025; 86706; 86708; 87086; 87088

== ENCOUNTER → 2024-04-12 | Outpatient (CLI) | payer MEDICARE, BC, SELFPAY ==
[2024-04-12 15:39] LABS: Vitamin B12 512 pg/mL (211-911); Vitamin D,25 Hydroxy 77.7 ng/mL
== END | disposition home or self-care (01) ==
PROVIDERS: PCP Nurse Practitioner Family; Referring Provider Nurse Practitioner Family; Visit Provider Nurse Practitioner Family
DX: R53.83 Other fatigue (principal); E55.9 Vitamin D deficiency, unspecified
CPT/HCPCS: 36415; 82306; 82607

== ENCOUNTER 2024-04-22 10:00 | Outpatient (RCR) | payer MEDICARE, BC, SELFPAY ==
--- NOTE | 2024-03-21 14:00 | HP.PTEVAL_ITS ---
Patient's Visit Information Visit Information Visit Information: CHINMAY COTA is a 83 year old F referred to Physical Therapy by SHILPI Sarah with a diagnosis of LUMBAR RADICULOPATHY. Date of Evaluation: 03/21/24 Physical Therapist: Beti Morales, PT, Cert MDT Visit Plan Frequency: 2-3x /Week Duration: 4-6 Months Plan: LUMBAR US, POSTURE CORRECTION/STRENGTHENING, INSTRUCTION IN APPROPRIATE BODY MECHANICS AND ACTIVITY MODIFICATIONS. DLS STARTING WITH A NEUTRAL SPINE PROGRESSING ROM TOLERATED. LM LE ROM, STRETCHING AND STRENGTHENING. HEP INSTRUCTION. Subjective Subjective: Work/Leisure: RETIRED. LIVES AL[place] IN [place]. Present symptoms: R LOW BACK, THIGH, LEG AND FOOT PAIN. R LE TINGLING. L FOOT TINGLING TOO. Present since: CHRONIC. FLARED UP WITH YARDWORK ABOUT 6 WKS AGO. Pain Scale: WORST 9/10, LEAST 2/10 Currently: 5/10 Is it getting better, worse or staying the same: STAYING THE SAME Commenced as a result of: NO APPARENT REASON INITIALLY BUT IT FLARED UP WITH GARDENING. Symptoms at onset: R THIGH AND CALF PAIN Worse: STANDING, WALKING Better: PREDNISONE, SITTING, LYING DOWN ON FLOOR FLAT ON BACK Disturbed sleep: NO Previous history/Previous treatment: PHYSICAL THERAPY, MEDICINE. NO INJECIONS, BACK SURGERY OR HIP SURGERY. NO CHIRO. Treatment this episode: PREDNISONE, ALEVE Coughing/sneezing/straining: NO EFFECT Gait: MORE TIME AND DISTANCE LIMITED - SLOWER - SINCE FLARE UP. Bowel or Bladder Dysfunction: NO Accidents: NO Unexplained weight loss: NO Imaging: NONE RECENT. PMH/Recent major surgery: GALLBLADDER REMOVAL 2022. Hypertension Stroke/cerebrovascular accident Secondary pulmonary arterial hypertension Mitral valve annular calcification Circumscribed scleroderma Osteoporosis Hypothyroidism Essential hypertension Hyperlipidemia OTHER: PATIENT REPORTS THAT THE LAST EPISODE OF CARE WITH PT ABOUT 2 YEARS AGO FOR HER BACK REALLY HELPED AND SHE CONTINUED THE EX'S FOR A WHILE BUT THEN SLACKED OFF ON THEM. SHE STARTED THEM AGAIN WHEN HER BACK FLARED UP AND THEY STARTED HELPING ALMOST IMMEDIATELY. Objective Objective: Sitting/Standing Posture: POOR. FH. RS'S. DECREASED LORDOSIS. SCOLIOSIS. Active Correction of posture: WORSE. Other Observations: INDEP GAIT INTO PT TODAY WITHOUT ANY AD'S OR LOB. PATIENT WALKS WITH INCRASED TRUNK FLEXION, DECREASED CADANCE AND VERY SHORT LM STRIDE LENGTH. PATIENT IS ABLE TO TRANSFER INDEP'LY FROM SIT TO STAND WITHOUT UE ASSIST. Sensory deficit: LM LE LIGHT TOUCH SENSATION IS GROSSLY INTACT AND SYMMETRICAL. ROM deficit: MILD TIGHTNESS LM HIP FLEXORS, HS'S AND GASTROC SOLEUS COMPLEX'S. Motor deficit: LM LE'S 5/5 WITH MMT'ING. Dural Signs: NEGATIVE LM LE'S. Lumbar mvmt loss: flex - NIL. ext - MOD. R SG - MOD. L SG - MOD. PATIENT DENIES INCREASED PAIN WITH LUMBAR ROM TESTING ALL PLANES. Core strength: FAIR. Palpation: NO ACUTE LUMBAR, SACRAL OR HIP/PELVIC TENDERNESS. TREATMENT: NEUROMUSCULAR REEDUCATION - RETRAINING OF MVMT AND POSTURE FOR SITTING, LYING AND STANDING ACTIVITIES AND HEP CHECK. Balance/Special Test Scores Oswestry Low Back Score: 14 Goals Goal 1:: DECREASE C/O LOW BACK AND RIGHT LE PAIN BY AT LEAST 50%. Goal Time Frame: 4-6 Weeks Goal 2:: IMPROVE STANDING AND WALKING FUNCTION. Goal Time Frame: 4-6 Weeks Goal 3:: INSTRUCT IN PROPHYLAXIS Goal Time Frame: 4-6 Weeks Rehabilitation Potential Physical Therapy Diagnosis: THIS PATIENT PRESENTS TO PT WITH C/O R LOW BACK AND LE PAIN FLARE UP ABOUT 6 WEEK AGO. SHE HAS CORE WEAKNESS AND STIFFNESS WITH CHRONIC GAIT ABNORMALITY. SHE IS CURRENTLY MORE LIMITED THAN USUAL IN HER STANDING AND WALKING FUNCTION. SHE HAD A PRIOR SIMILAR EPISODE OF BACK AND LEG PAIN ABOUT 2 YEARS AGO THAT RESPONDED WELL TO PT. Anticipated Interventions Patient/Client Instruction: Educate patient on: Condition, Plan of Care and Risk Factors For the Purpose of:: To improve self management Therapeutic Exercise to Include: Strength training, Body mechanics, Postural training, Flexibilty training, Gait and locomotor training, Neuromotor development, In an aquatic setting and Dynamic Lumbar Stabilization For the Purpose of:: To decrease pain, To improve muscle performance and motor function, To increase tolerance to activity/condition/position, To improve tommy lity of physical actions for home/community/work/leisure, To improve gait and locomotor functions and To increase flexibility/ROM Cryotherapy (ice pack, ice massage): Yes Thermo therapy (hot pack): Yes For the Purpose of:: To decrease pain, To decrease swelling/inflammation and To improve nutrient delivery to tissue Text: Thank you for the opportunity to evaluate your patient. For Medicare and Medicare HMO plans, please review the plan of care and approve it. It will need to be FAXED BACK to us at [phone] for Medicare purposes. For Medicare only, by signing this I certify the plan of care. Please let me know if there are questions or concerns regarding this plan of care. Physician Signature: Date:
== END 2024-04-22 19:00 | disposition home or self-care (01) ==
LOC: PT 10:00
PROVIDERS: PCP Nurse Practitioner Family; Referring Provider Nurse Practitioner Family; Visit Provider Nurse Practitioner Family
DX: M54.16 Radiculopathy, lumbar region (principal)
CPT/HCPCS: 97110; 97112; 97162; 97530

== ENCOUNTER → 2024-04-23 | Outpatient (CLI) | payer MEDICARE, BC, SELFPAY ==
--- NOTE | 2024-04-23 08:30 | BI_ITS ---
MAMMOGRAPHY - BILATERAL SCREENING REASON FOR EXAM: Female, 83 years old. Routine annual screening examination. PERTINENT HISTORY: Non-contributory. TECHNIQUE: Digital bilateral breast loan (3D mammographic acquisition) in the CC and MLO projections. 2-D mediolateral oblique (MLO) and craniocaudad (CC) views of both breasts were obtained. CAD: Full Field Digital Mammography with Computer Added Detection was performed. COMPARISON: Comparison is made with prior study dated May 02, 2023 and April 28, 2022. FINDINGS: Breast Composition: The breasts are extremely dense, which lowers the sensitivity of mammography. There are no dominant masses or suspicious calcifications. Stable bilateral secretory calcifications. No other significant abnormalities are identified. There has been no significant change since the prior study. BI/SCRN MAMM (CAD)W/LOAN BILAT IMPRESSION: Stable bilateral screening mammogram. Yearly follow-up mammogram recommended. (A) ASSESSMENT CATEGORY: BIRADS Category 2: Benign. A letter regarding these results will be sent to the patient by the facility within 30 days. Approximately 10% of breast cancers are not detected by mammography. A normal mammogram should not delay biopsy of a clinically suspicious abnormality. [id number] Electronically Signed: Per Frye MD at 10:41 EDT ,
== END | disposition home or self-care (01) ==
LOC: OPBI 08:30
PROVIDERS: PCP Nurse Practitioner Family; Referring Provider Nurse Practitioner Family; Visit Provider Nurse Practitioner Family
DX: Z12.31 Encounter for screening mammogram for malignant neoplasm of breast (principal)
CPT/HCPCS: 77063; 77067

== ENCOUNTER 2024-07-30 10:07 | Emergency (ER) | payer MEDICARE, BC, SELFPAY ==
[2024-07-30 10:08] VITALS: BP 157/82; PULSE 101; RESP 18; TEMP 36.6; O2SAT 98
--- NOTE | 2024-07-30 10:32 | EKG12_ITS ---
Test Reason : PALP Blood Pressure : / mmHG Vent. Rate : 094 BPM Atrial Rate : 094 BPM P-R Int : 168 ms QRS Dur : 072 ms QT Int : 350 ms P-R-T Axes : 083 049 073 degrees QTc Int : 437 ms Normal sinus rhythm Possible Left atrial enlargement Nonspecific ST abnormality Abnormal ECG Confirmed by Luigi Encarnacion ([id number]), acquisitions editor ROBERT MYLES ([id number]) on 07/31/2024 9:21:29 AM Referred By: LULA/JERROD Confirmed By:Luigi Encarnacion
--- NOTE | 2024-07-30 10:40 | RAD_ITS ---
EXAM: XR CHEST, 1 VIEW CLINICAL INDICATION: chest pain TECHNIQUE: Frontal view of the chest. COMPARISON: No relevant prior studies available. FINDINGS: LUNGS AND PLEURAL SPACES: Mild pulmonary hyperinflation with flattening of the hemidiaphragms. 2 calcified granulomas in the left midlung. No consolidation or edema. No pleural effusions. No pneumothorax. HEART: Unremarkable. Cardiac silhouette not enlarged. MEDIASTINUM: Central airways and mediastinal contour are unremarkable. BONES/JOINTS: Unremarkable. No acute fracture. SOFT TISSUES: Unremarkable. RAD/Chest 1 View (Portable) IMPRESSION: 1. No acute findings in the chest. 2. Mild COPD. Electronically Signed: Nayan Ojeda MD at 11:02 EDT ,
[2024-07-30 10:44] LABS: Absolute Lymphocyte Count 0.97 X10^3/uL (0.83-4.51); Absolute Neutrophil Count 2.9 X10^3/uL (2.0-7.7); Basophil# 0.08 X10^3/uL; Basophil% 1.7 % (0-1); Eosinophil# 0.13 X10^3/uL; Eosinophils% 2.8 % (0-5); Hemoglobin 13.6 g/dL (12.0-15.0); Lymphocyte # 0.97 X10^3/ul (0.83-4.51); Lymphocyte % 21.1 % (19-41); Mean Corpuscular Hgb 31.1 pg (27.0-32.0); Mean Corpuscular Volume 91.5 fL (81-99); Mean Platelet Vol. 9.4 fl (6.2-12.0); Monocyte# 0.54 X10^3/uL; Monocyte% 11.7 % (0-10); NRBC Flagged by Analyzer 0 % (0-5); Neutrophil # 2.87 X10^3/uL (2.7-7.7); Neutrophil % 62.5 % (47-70); Platelet Count 243 K/mm3 (150-450); RBC Distribution Width CV 12.3 % (11.6-14.6); RBC Distribution Width SD 41.5 fl (35.1-43.9); Red Blood Count 4.37 M/mm3 (4.2-5.4); White Blood Count 4.6 K/mm3 (4.4-11.0)
[2024-07-30 10:59] LABS: Anion Gap 6 (5-15); BUN 14 mg/dL (7-18); BUN/Creat Ratio 17.5 RATIO (10-20); Calcium,Total 9.5 mg/dL (8.5-10.1); Chloride 102 mmol/L (98-107); EST Glomerular Filtration Rate 72 mL/min (>60); Est Glom Filt Rate - Afr Amer 87 mL/min (>60); Estimated Creatinine Clearance 40.99 ml/min; Glucose 100 mg/dL (74-106); Potassium 4.4 mmol/L (3.5-5.1); Sodium Level 135 mmol/L (136-145); Troponin-I HS (w/2H Reflex) 6 pg/mL (3.0-54.0)
[2024-07-30 11:07] VITALS: BP 145/76; PULSE 78; RESP 16; TEMP 36.6; O2SAT 98
--- NOTE | 2024-07-30 11:43 | ED.VIS.CHEST ---
HPI History of Present Illness Chief Complaint: Palpitations Informant: patient and family Narrative Narrative: 84-year-old female presenting to the emergency room chief complaint of palpitations. Patient states that she has not been sleeping well at night. She states that she has been waking up around 3:00 with dreams. She had been taking some Excedrin nighttime but has not taken it over the past several days. Last night she woke up around 0 300 due to some bad dreams. She felt her heart beating strongly and occasionally feeling a thump in the chest. She has been feeling intermittently dizzy. She states it is very hard for her to describe that sensation but states that it is intermittently. She states she is worn a Holter monitor in the past but has not been given any known cardiac dysrhythmia diagnoses. She states that she continued to not be able to sleep during the night who presents here for evaluation. 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 Osteoporosis Hypothyroidism Essential hypertension Hyperlipidemia Home Medications ?Medication ?Instructions ?Recorded ?Last Taken ?Type alendronate 70 mg tablet 70 mg PO QWEEK OSTEOPOROSIS 03/01/22 Unknown History cholecalciferol (vitamin D3) 50 50 mcg PO DAILY 03/01/22 Unknown History mcg (2,000 unit) capsule multivitamin 1 tab PO DAILY SUPPLEMENT 03/01/22 Unknown History vitamin B complex 1 tab PO DAILY SUPPLEMENT 03/01/22 Unknown History vitamins A,C,K-mufh-ipzjsv 4,296 1 cap PO BID EYE HEALTH 03/01/22 Unknown History mcg-226 mg-90 mg capsule (PreserVision AREDS) tigwhis-fzhgwetdziakb-uqbacdnz 250 1 tab PO ONCE PRN pain 03/03/22 Unknown History mg-250 mg-65 mg tablet (Excedrin Extra Strength) propylene glycol 0.6 % eye drops 1 drp ophthalmic (eye) DAILY PRN 03/03/22 Unknown History (Systane Balance) dry eye(s) calcium 500 mg (as 1 tab PO DAILY SUPPLEMENT 06/01/22 Unknown History carbonate)-vitamin D3 10 mcg (400 unit) tablet (Calcium 500 + D) omega-3 fatty acids 1,000 mg PO DAILY SUPPLEMENT 05/13/23 Unknown History levothyroxine 88 mcg tablet 112 mcg PO DAILY THYROID 03/28/24 Unknown History (Synthroid) Allergy/AdvReac Type Severity Reaction Status Date / Time Sulfa (Sulfonamide Allergy UNKNOWN Verified 07/30/24 10:08 Antibiotics) Family History Father Cancer Mother Hypertension Heart disease CHF COPD (chronic obstructive pulmonary disease) Brother Cancer Surgical History S/P ERCP S/P laparoscopic cholecystectomy (~04/2023) History of cataract surgery Social History Smoking Status: Never smoker alcohol intake: never substance use type: does not use caffeine: Yes Type: coffee ROS ROS ED Constitutional Constitutional ED: Denies chills, fever(s) or weight loss Eyes Eyes: Denies change in vision or diplopia ENT ENT ED: Denies ear pain, rhinorrhea or sore throat Cardiovascular Cardiovascular: Reports palpitations; Denies chest pain, orthopnea or racing heartbeat Respiratory/Chest Respiratory/Chest: Denies cough, dyspnea or orthopnea Gastrointestinal Gastrointestinal: Denies abdominal pain, diarrhea, nausea or vomiting Genitourinary Genitourinary ED: Denies dysuria, hematuria or urinary frequency Musculoskeletal Musculoskeletal: Denies arthralgias or myalgias Integumentary Denies abscess or rash Neurologic Neurologic: Denies headache(s) or weakness Psychiatric Psychiatric: Reports anxiety; Denies depression, suicidal ideation or suicidal thoughts Endocrine Endocrinology: Denies polydipsia, polyphagia or polyuria Allergic/Immunologic Allergic/Immunologic ED: Denies mouth swelling, tongue swelling or urticaria EXAM Physical Exam Const Vital Signs: 07/30/24 10:08 07/30/24 10:32 07/30/24 11:07 Temperature 97.8 F 97.8 F Temperature Source Oral Temporal Pulse Rate 101 H 78 Respiratory Rate 18 16 Blood Pressure 157/82 H 145/76 H Blood Pressure Mean 107 99 Pulse Ox 98 98 Oxygen Delivery Method Room Air Room Air Room Air 07/30/24 12:00 Temperature 98.9 F Temperature Source Temporal Pulse Rate 64 Respiratory Rate 18 Blood Pressure 137/88 H Blood Pressure Mean 104 Pulse Ox 97 Oxygen Delivery Method Room Air Positive well nourished and well developed General Appearance ED: well developed HEENT Reports normocephalic, head/scalp atraumatic and moist mucous membranes Eyes PERRL and EOMs intact bilaterally Neck no lymphadenopathy, supple and no JVD Resp normal respiratory effort and clear to auscultation bilaterally Cardio regular rate, regular rhythm and no murmurs GI normal to inspection, nondistended, normoactive bowel sounds and non-tender Palpation: soft Back/Spine no CVA tenderness and normal ROM Extremity normal to inspection General Extremety ED: Negative for edema General Extremity: Negative for edema Neuro oriented x3 and CN's II-XII intact bilaterally Sensorium / Orientation: alert Motor Exam: strength 5/5 throughout Psych mental status grossly normal Mood & Affect: Negative for depressed or tearful Skin no rashes or lesions noted and no wounds MDM MDM MDM Narrative Medical decision making narrative: Differential diagnosis includes cardiac dysrhythmia acute coronary syndrome electrolyte abnormalities anemia aortic dissection Basic blood work was obtained which essentially negative including a troponin which is about a 7-hour troponin from the onset of her symptoms. My independent interpretation of the chest x-ray is no acute process. Clinically I think the patient can be discharged home. If her symptoms would persist would recommend possible Holter monitor. I do not feel that her blood pressure is at a level that we would need to restart her medications without her having more data and would recommend that her doctors restart these medicines if needed. History & Record Review Discussion w/independent historian: Patient and Family Lab Data Attestation: I reviewed the patient's lab results. Labs: Laboratory Results - last 24 hr 07/30/24 10:30 WBC 4.6 RBC 4.37 Hgb 13.6 Hct 40.0 MCV 91.5 MCH 31.1 MCHC 34.0 RDW Std Deviation 41.5 RDW Coeff of Rhina 12.3 Plt Count 243 MPV 9.4 Immature Gran % (Auto) 0.200 Neut % (Auto) 62.5 Lymph % (Auto) 21.1 [place] % (Auto) 11.7 H Eos % (Auto) 2.8 Baso % (Auto) 1.7 H Absolute Neuts (auto) 2.9 Absolute Lymphs (auto) 0.97 Nucleated RBC % 0 Sodium 135 L Potassium 4.4 Chloride 102 Carbon Dioxide 28.0 Anion Gap 6 BUN 14 Creatinine 0.80 Estim Creat Clear Calc 40.99 Est GFR (MDRD) Af Amer 87 Est GFR (MDRD) Non-Af 72 BUN/Creatinine Ratio 17.5 Glucose 100 Calcium 9.5 Troponin I High Sens 6 Radiography Diagnostic Testing: Clinical Impression(s) from Imaging Studies Chest X-Ray 07/30/24 10:40 IMPRESSION: 1. No acute findings in the chest. 2. Mild COPD. Electronically Signed: Nayan Ojeda MD at 11:02 EDT Reading Location ID and State: [facility] / [place] , Service support , EKG Initial EKG: Attestation: I personally reviewed and interpreted this EKG as follows: Comments: Normal sinus rhythm ventricular rate of 94 bpm Discharge Plan Triage Chief Complaint: Palpitations ED Provider: Toni Sharma Dx/Rx/DC Orders Clinical Impression: Palpitations, Essential hypertension Instructions: ED Palpitations Prescriptions: No Action cholecalciferol (vitamin D3) 50 mcg (2,000 unit) capsule 50 mcg PO DAILY alendronate 70 mg tablet 70 mg PO QWEEK multivitamin Tablet 1 tab PO DAILY PreserVision AREDS 14,320-226-200 ppbj-of-wbnb capsule 1 cap PO BID vitamin B complex Tablet 1 tab PO DAILY levothyroxine [Synthroid] 88 mcg tablet 112 mcg PO DAILY Systane Balance 0.6 % drops 1 drp ophthalmic (eye) DAILY PRN (Reason: dry eye(s)) Excedrin Extra Strength 250-250-65 mg tablet 1 tab PO ONCE PRN (Reason: pain) calcium carbonate-vitamin D3 [Calcium 500 + D] 500 mg-10 mcg (400 unit) tablet 1 tab PO DAILY omega-3 fatty acids Capsule 1,000 mg PO DAILY Primary Care Provider: Martina Conner Referrals: Martina Conner, LINO-C [Primary Care Provider] - 1 Week Print Language: Malay Disposition Disposition: Home, Self Care Discharge Date/Time: 07/30/24 12:22
[2024-07-30 12:00] VITALS: BP 137/88; PULSE 64; RESP 18; TEMP 37.2; O2SAT 97
[2024-07-30 12:37] LABS: Reflex Troponin-HS? (from REC) Y
== END 2024-07-30 12:22 | disposition home or self-care (01) ==
LOC: ED 11:45
PROVIDERS: Emergency Provider Emergency Medicine; PCP Nurse Practitioner Family; Visit Provider Emergency Medicine
DX: R00.2 Palpitations (principal); J44.9 Chronic obstructive pulmonary disease, unspecified; I10 Essential (primary) hypertension; E03.9 Hypothyroidism, unspecified; E78.5 Hyperlipidemia, unspecified; M81.0 Age-related osteoporosis without current pathological fracture; Z88.2 Allergy status to sulfonamides; Z90.49 Acquired absence of other specified parts of digestive tract; Z86.73 Personal history of transient ischemic attack (TIA), and cerebral infarction without residual deficits; Z79.82 Long term (current) use of aspirin; Z79.899 Other long term (current) drug therapy; Z79.890 Hormone replacement therapy
CPT/HCPCS: 71045; 80048; 84484; 85025; 93005; 99284; A4216

== ENCOUNTER → 2024-09-30 | Outpatient (CLI) | payer MEDICARE, BC, SELFPAY ==
[2024-09-30 11:16] LABS: AST(SGOT) 30 U/L (15-37); Alanine Aminotransfer ALT/SGPT 27 U/L (13-56); Albumin, Serum 3.4 g/dL (3.2-5.0); Alkaline Phosphatase 81 U/L (45-117); Anion Gap 7 (5-15); BUN 21 mg/dL (7-18); BUN/Creat Ratio 25.8 RATIO (10-20); Chloride 101 mmol/L (98-107); Cholesterol 170 mg/dL (200); Creatinine, Serum 0.82 mg/dL (0.55-1.02); EST Glomerular Filtration Rate 71 mL/min (>60); Est Glom Filt Rate - Afr Amer 86 mL/min (>60); Globulin 3.5 g/dL (2.2-4.2); Glucose 87 mg/dL (74-106); High Density Lipoprotein 90 mg/dL; Protein, Total 6.9 g/dL (6.4-8.2); Sodium Level 135 mmol/L (136-145); Triglycerides 45 mg/dL; Very Low Density Lipoprotein 9 mg/dL (5-40)
== END | disposition home or self-care (01) ==
LOC: MTLAB 07:08
PROVIDERS: PCP Nurse Practitioner Family; Referring Provider Nurse Practitioner Family; Visit Provider Nurse Practitioner Family
DX: I10 Essential (primary) hypertension (principal); E03.9 Hypothyroidism, unspecified; E78.5 Hyperlipidemia, unspecified
CPT/HCPCS: 36415; 80053; 80061; 84443

== ENCOUNTER 2024-12-26 09:41 | Outpatient (CLI) | payer MEDICARE, BC, SELFPAY ==
[2024-12-26 12:37] LABS: Absolute Lymphocyte Count 0.84 X10^3/uL (0.83-4.51); Basophil# 0.05 X10^3/uL; Basophil% 0.9 % (0-1); Eosinophil# 1.12 X10^3/uL; Hemoglobin 12.5 g/dL (12.0-15.0); Lymphocyte # 0.84 X10^3/ul (0.83-4.51); Mean Corp Hgb Conc 33.8 g/dL (32-36); Mean Corpuscular Hgb 31.9 pg (27.0-32.0); Mean Corpuscular Volume 94.4 fL (81-99); Mean Platelet Vol. 10.8 fl (6.2-12.0); Monocyte# 0.59 X10^3/uL; Monocyte% 10.5 % (0-10); NRBC Flagged by Analyzer 0 % (0-5); Neutrophil % 53.4 % (47-70); Platelet Count 291 K/mm3 (150-450); RBC Distribution Width CV 12.2 % (11.6-14.6); RBC Distribution Width SD 42.6 fl (35.1-43.9); Red Blood Count 3.92 M/mm3 (4.2-5.4); White Blood Count 5.6 K/mm3 (4.4-11.0)
[2024-12-26 13:28] LABS: ALB/GLOB Ratio 1.5 RATIO (0.9-2.4); AST(SGOT) 35 U/L (<=31); Alanine Aminotransfer ALT/SGPT 27 U/L (<=34); Albumin, Serum 4.1 g/dL (3.4-4.8); Alkaline Phosphatase 102 U/L (35-104); Anion Gap 11 (5-15); BUN 16 mg/dL (4-19); Calcium,Total 9.6 mg/dL (7.6-11.0); Carbon Dioxide 25.1 mmol/L (21.0-32.0); Chloride 102 mmol/L (98-108); Creatinine, Serum 0.72 mg/dL (0.70-1.20); EST Glomerular Filtration Rate 82 (>60); Globulin 2.8 g/dL (2.2-4.2); Glucose 89 mg/dL (70-99); Potassium 4.7 mmol/L (3.3-5.1); Protein, Total 6.9 g/dL (5.9-8.4); Sodium Level 138 mmol/L (133-145); Total Bilirubin 0.61 mg/dL (0.00-1.30)
[2024-12-26 15:06] LABS: Iron Binding Capacity,Total 312 ug/dL (250-450)
[2024-12-26 15:50] LABS: Iron 71 ug/dL (50-170); Iron Binding Capacity,Unsat 241 ug/dL (228-428); PERCENT IRON SATURATION 22.8 % (13-59); Rheumatoid Factor < 10.0 IU/mL (<15); Vitamin B12 1248 pg/mL (180-914); Vitamin D,25 Hydroxy 70.6 ng/mL (30-100)
[2024-12-27 11:09] LABS: Anti-Centromere B Ab <0.2 AI (0.0-0.9); Anti-Chromatin <0.2 AI (0.0-0.9); Anti-Jo <0.2 AI (0.0-0.9); Anti-Scleroderma-70 AB <0.2 AI (0.0-0.9); Anti-dsDNA Ab <1 IU/mL (0-9); RNP Ab <0.2 AI (0.0-0.9); SJOGREN'S Anti-SS-A test < 0.2 AI (0.0-0.9); SJOGREN'S Anti-SS-B test < 0.2 AI (0.0-0.9); Smith Ab 0.6 AI (0.0-0.9)
[2024-12-27 14:08] LABS: CCP IgG Antibodies 9 units (0-19); Lyme Scn Total Ab w/Rflx Negative (Negative)
== END 2024-12-26 23:59 | disposition home or self-care (01) ==
LOC: BIMLAB 09:42
PROVIDERS: PCP Internal Medicine; Referring Provider Internal Medicine; Visit Provider Internal Medicine
DX: R53.82 Chronic fatigue, unspecified (principal); M81.0 Age-related osteoporosis without current pathological fracture
CPT/HCPCS: 36415; 80053; 82306; 82607; 83540; 83550; 84443; 85025; 86200; 86225; 86235; 86431; 86618

== ENCOUNTER → 2025-04-07 | Outpatient (CLI) | payer MEDICARE, BC, SELFPAY ==
--- NOTE | 2025-04-07 11:10 | RAD_ITS ---
PROCEDURE: LUMBAR SPINE 2 OR 3 VIEWS 04/07/2025 REASON FOR EXAM: PAIN FROM FALL TECHNIQUE: LUMBAR SPINE 2 OR 3 VIEWS COMPARISON: March 03, 2022 FINDINGS: There is levoscoliosis of the lumbar region with [place] angle = 12 degrees from L3-S1, apex L4. There is grade 1 spondylolisthesis at L2-3, 0.2 cm. There is grade 1 spondylolisthesis at L3-4, 0.2 cm. There is grade 1 spondylolisthesis at L4-5, 0.6 cm. There is loss of disc height which is most severe from L4-S1. There is severe facet sclerosis. Osteopenia is noted. Vascular calcifications are present. RAD/Lumbar Spine 2 or 3 Views IMPRESSION: There is levoscoliosis of the lumbar region with Grove angle = 12 degrees from L 3-S1, apex L4. There is grade 1 spondylolisthesis at L2-3, 0.2 cm. There is grade 1 spondyloli sthesis at L3-4, 0.2 cm. There is grade 1 spondylolisthesis at L4-5, 0.6 cm. There is loss of disc height which is most severe from L4-S1. Findings are sim ilar to the prior. Reading Location: [facility]
--- NOTE | 2025-04-07 11:10 | RAD_ITS ---
PROCEDURE: HIP, UNI W/ PELVIS 2-3 VIEWS 04/07/2025 REASON FOR EXAM: PAIN FROM FALL TECHNIQUE: HIP, UNI W/ PELVIS 2-3 VIEWS COMPARISON: March 03, 2020 FINDINGS: The hip joints appear intact. SI joints are aligned. The sacral foramina appear intact. There is no visible pelvic fracture. Mineralization is normal. Vascular calcifications are visible. RAD/HIP, UNI W/ Pelvis 2-3 Views IMPRESSION: No fracture or dislocation is identified. Reading Location: [facility]
== END | disposition home or self-care (01) ==
LOC: MTRAD 11:04
PROVIDERS: PCP Internal Medicine; Referring Provider Physician Assistant; Visit Provider Physician Assistant
DX: M25.552 Pain in left hip (principal); M54.9 Dorsalgia, unspecified; W19.XXXA Unspecified fall, initial encounter
CPT/HCPCS: 72100; 73502

== ENCOUNTER 2025-04-09 19:33 | Emergency (ER) | payer MEDICARE, BC, SELFPAY ==
[2025-04-09 19:34] VITALS: BP 169/95; PULSE 102; RESP 18; TEMP 37.1; O2SAT 100; BMI 20.3
--- NOTE | 2025-04-09 21:10 | RAD_ITS ---
PROCEDURE: HAND MIN 3 VIEWS 04/09/2025 REASON FOR EXAM: FALL TECHNIQUE: HAND MIN 3 VIEWS COMPARISON: None. FINDINGS: Bones: Dislocation/subluxation of the right 1st MCP joint. Diffuse osseous demineralization. No obvious acute fracture. Joints: Normal alignment. Moderate degenerative changes. Soft tissues: Mild soft tissue swelling. Other: No radiopaque foreign body. RAD/Hand Min 3 Views IMPRESSION: Dislocation/subluxation of the right 1st MCP joint. Correlation with physical examination recommended. Reading Location: [id number]
[2025-04-09] MEDS: Lidocaine 2% (20 ml mdv) 20 ML Vial INFILT (22:24)
--- NOTE | 2025-04-09 22:30 | RAD_ITS ---
PROCEDURE: LUMBAR SPINE 2 OR 3 VIEWS 04/09/2025 REASON FOR EXAM: PAIN TECHNIQUE: LUMBAR SPINE 2 OR 3 VIEWS COMPARISON: L-spine radiographs 04/07/2025. FINDINGS: Vertebrae: No obvious acute fracture. Mild multilevel vertebral body height loss. Discs: Severe degenerative disc disease, greatest at L4-5. Alignment: Unchanged mild leftward curvature of the lower lumbar spine. Grade 1 spondylolisthesis at L3-4 and L4-5. Other: Diffuse bone demineralization. Vascular calcifications. RAD/Lumbar Spine 2 or 3 Views IMPRESSION: ADVANCED DEGENERATIVE CHANGES OF THE LUMBAR SPINE. Reading Location: [id number]
--- NOTE | 2025-04-09 23:37 | EDS_ITS ---
HPI History of Present Illness Chief Complaint: Fall Informant: patient and family Narrative Narrative: Patient is a 84-year-old female with past manage of hypertension pulmonary artery hypertension and hypothyroidism. She states roughly 1 week ago she was pulling on a wheelbarrow backwards when she fell and hurt her low back. She states she went to urgent care and was informed there was nothing broken or out of place. She states that however despite using eiva-jxh-zmowjfl medications she has had persistent pain in the low back that radiates down her left leg. She denies any loss of bowel or bladder control or IV drug use. She states today that she fell and injured her right hand. Secondary to the new injury and the persistent pain from the previous fall she presents for evaluation. She states she did not strike her head nor did she have loss of consciousness nor does she take blood thinners or have a history of bleeding disorder [facility] Medical History (Updated 04/13/25 @ 01:[address] 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 Osteoporosis Hypothyroidism Essential hypertension Home Medications ?Medication ?Instructions ?Recorded ?Last Taken ?Type cholecalciferol (vitamin D3) 50 50 mcg PO DAILY Unknown History mcg (2,000 unit) capsule multivitamin 1 tab PO DAILY SUPPLEMENT Unknown History vitamin B complex 1 tab PO DAILY SUPPLEMENT Unknown History vitamins A,C,T-xcuq-hjeoxi 4,296 1 cap PO BID EYE HEAL TH 03/01/22 Unknown History mcg-226 mg-90 mg capsule (PreserVision AREDS) hcqradv-okljggyizpodb-cbyyypmy 250 1 tab PO ONCE PRN p ain 03/03/22 Unknown History mg-250 mg-65 mg tablet (Excedrin Extra Strength) propylene glycol 0.6 % eye drops 1 drp ophthalmic (eye ) DAILY PRN 03/03/22 Unknown History (Systane Balance) dry eye(s) calcium 500 mg (as 1 tab PO DAILY SUPPLEMENT Unknown History carbonate)-vitamin D3 10 mcg (400 unit) tablet (Calcium 500 + D) omega-3 fatty acids 1,000 mg PO DAILY SUPPLEMENT 05/13/23 Unknown History sertraline 50 mg tablet 50 mg PO QDAY 12/19/24 Unkno wn History alendronate 70 mg tablet 70 mg PO QWEEK OSTEOPOROSIS #12 12/27/24 Unknown Rx tabs levothyroxine 112 mcg tablet 112 mcg PO DAILY Hypothyr oidism 12/27/24 Unknown Rx #90 tabs prednisone 10 mg tablet 10 mg PO DAILY #30 tabs 03/17 01/07 Unknown Rx hydrocodone-acetaminophen 5-325mg 1 tab PO Q6H PRN PRN Pain 3 days 04/09/25 Unknown Rx 5mg-325mg #12 TABLETS methocarbamol 500 mg tablet 500 mg PO TID PRN Muscle 0 04/09/25 Unknown Rx pain/spasm #30 tabs Allergy/AdvReac Type Severity Reaction Status Date / Time Sulfa (Sulfonamide Allergy UNKNOWN Verified 04/09/25 19:34 Antibiotics) Family History Father Cancer bladder Mother Hypertension Heart disease CHF COPD (chronic obstructive pulmonary disease) Anemia Arthritis Age related osteoporosis Brother Cancer pancreatic Brother Pulmonary embolism Skin cancer Surgical History History of ankle surgery S/P ERCP S/P laparoscopic cholecystectomy (~04/2023) History of cataract surgery Social History adopted: No household members: none number of children: 4 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 pets and animals: No history of recent travel: No sexually active: No Smoking Status: Never smoker alcohol intake: never substance use type: does not use well-balanced diet: about half the time caffeine: Yes (1-2) Type: carbonated beverages, coffee and tea eating out: rarely or never what type of physical activity do you participate in: walking frequency: daily duration: 45-60 minutes/day seatbelt use: always do you feel safe at home: Yes ROS ROS ED Constitutional Constitutional ED: Denies chills or fever(s) Eyes Eyes: Denies blurry vision or change in vision ENT ENT ED: Denies sore throat Cardiovascular Cardiovascular: Denies chest pain Respiratory/Chest Respiratory/Chest: Denies cough or dyspnea Gastrointestinal Gastrointestinal: Denies abdominal pain, diarrhea, nausea or vomiting Genitourinary Genitourinary ED: Denies dysuria or hematuria Musculoskeletal Musculoskeletal: Reports back pain and other Details: Right hand pain ; Denies neck pain Integumentary Denies Abrasions or rash Neurologic Neurologic: Denies headache(s) or paresthesias Hematologic/Lymphatic Hematologic/Lymphatic: Denies easy bleeding or easy bruising EXAM Physical Exam Const Vital Signs: 04/09/25 19:34 04/09/25 22:19 Temperature 98.7 F Temperature Source Oral Pulse Rate 102 H Respiratory Rate 18 Respiratory Effort Normal Non-Labored Respiratory Depth Normal Respiratory Pattern Normal Blood Pressure 169/95 H Blood Pressure Mean 119 Pulse Ox 100 Oxygen Delivery Method Room Air Room Air Positive well nourished and well developed General Appearance ED: well developed HEENT HEENT Narrative: Normocephalic atraumatic Eyes PERRL and EOMs intact bilaterally General Eye ED: Negative for scleral icterus Neck supple Neck Narrative: No bony deformity or step-off of the cervical spine no midline tenderness to palpation Resp normal respiratory effort and clear to auscultation bilaterally Cardio regular rate and regular rhythm Back/Spine no CVA tenderness Back/Spine Narrative: No bony deformity or step-off of the thoracic or lumbar spine. There is mild lower lumbar pain with palpation. There is also pain and spasm of the left paralumbar muscle belly region that worsens with sidebending and rotation. Patient also has pain on palpation over top the left piriformis muscle that worsens with hip flexion No saddle anesthesia. Negative straight leg raise. No clonus or Babinski. Patellar reflexes are plus 1 out of 4 bilaterally Extremity Extremity Narrative: Right upper extremity is neurovascularly intact. There is soft tissue swelling and ecchymosis noted to the dorsal aspect of the right thumb at the PIP joint. There is also apparent dislocation/subluxation at the first metacarpal joint. Despite this appearance however patient does have full flexion and extension going against dislocation. Also no signs of ligamentous or tendon injury noted. Pelvis is stable there is no shortening or external rotation of either lower extremity Neuro oriented x3, CN's II-XII intact bilaterally and no sensory deficits noted Sensorium / Orientation: alert Psych mental status grossly normal Skin Skin Narrative: Soft tissue swelling with ecchymosis to the dorsal aspect of the right thumb as documented above MDM MDM MDM Narrative Medical decision making narrative: Patient arrived to the ER hypertensive but otherwise with stable vitals. She reported 2 mechanical falls in the past week. As the falls were mechanical I felt no need for cardiac or syncope workup. As she did not strike her head or have loss of consciousness I felt no need for head CT either. She does not have history or risk factors or exam findings concerning for cauda equina or epidural abscess. In order to check for potential compression fracture versus spinal thesis versus joint dislocation I do like to perform imaging study. Lumbar x- ray revealed no obvious fracture. The hand x-ray also showed no obvious fracture but question dislocation versus subluxation. By exam she can flex and extend going against dislocation and this also goes against a tendon injury. I did attempt a manual reduction with the subluxation which improved until she flex her thumb and then I went back to the initial location. Therefore the patient be placed in a thumb spica splint to hold the thumb stable. But as she is not truly dislocated and there is no signs of tendon damage there is no need for emergent orthopedic consultation and she can follow-up as an outpatient The patient was given a digital block using 6 mL of 2% lidocaine without epine phrine. The right first digit/thumb was cleaned with chlorhexidine. Anesthetic was injected in digital block fashion causing good anesthesia. Manual traction was applied to the right thumb which did cause improvement of its apparent subluxation. However after traction was released there was progression to the subluxation. Otherwise patient tolerated procedure well without complication. History & Record Review Discussion w/independent historian: Patient and Family Radiography Diagnostic Testing: Clinical Impression(s) from Imaging Studies Hand X-Ray 04/09/25 21:10 IMPRESSION: Dislocation/subluxation of the right 1st MCP joint. Correlation with physical examination recommended. Reading Location: [facility] Lumbar Spine X-Ray 04/09/25 22:30 IMPRESSION: ADVANCED DEGENERATIVE CHANGES OF THE LUMBAR SPINE. Reading Location: [facility] X-ray of the lumbar spine as interpreted by the emergency medicine physician reveals degenerative changes without acute compression fracture Right hand x-ray as interpreted by the emergency medicine physician reveals potential subluxation of the right first MCP joint without obvious fracture or joint effusion Discharge Plan Triage Chief Complaint: Fall ED Provider: Andes,Ihsan Dx/Rx/DC Orders Clinical Impression: Piriformis syndrome of left side, Acute myofascial strain of lumbosacral region, Subluxation of right thumb, Hypothyroidism, Essential hypertension Instructions: Self-Care for Low Back Pain, Understanding Lumbosacral Strain Prescriptions: New methocarbamol 500 mg tablet 500 mg PO TID PRN (Reason: Muscle pain/spasm) Qty: 30 0RF hydrocodone-acetaminophen 5-325 mg tablet 1 tab PO Q6H PRN PRN (Reason: Pain) 3 Days Qty: 12 0RF No Action cholecalciferol (vitamin D3) 50 mcg (2,000 unit) capsule 50 mcg PO DAILY multivitamin Tablet 1 tab PO DAILY PreserVision AREDS 14,320-226-200 skac-jo-xtir capsule 1 cap PO BID vitamin B complex Tablet 1 tab PO DAILY Systane Balance 0.6 % drops 1 drp ophthalmic (eye) DAILY PRN (Reason: dry eye(s)) Excedrin Extra Strength 250-250-65 mg tablet 1 tab PO ONCE PRN (Reason: pain) calcium carbonate-vitamin D3 [Calcium 500 + D] 500 mg-10 mcg (400 unit) tablet 1 tab PO DAILY sertraline 50 mg tablet 50 mg PO QDAY prednisone 10 mg tablet 10 mg PO DAILY Qty: 30 0RF Rx Instructions: 4 tablets daily x3 days, then 3 tablets daily x3 days, then 2 tablets daily x3 days, then 1 tablet daily x3 days omega-3 fatty acids Capsule 1,000 mg PO DAILY levothyroxine 112 mcg tablet 112 mcg PO DAILY Qty: 90 1RF alendronate 70 mg tablet 70 mg PO QWEEK Qty: 12 1RF Primary Care Provider: Cayla Caicedo Referrals: Cayla Caicedo MD [Primary Care Provider] - Nam Green DO [Med Staff - Active Staff] - Activity Restrictions/Additional Instructions: Please wear your thumb spica brace secondary to your thumb pain. Follow-up with orthopedics to discuss if there is any further treatment option. Continue to stretch and heat your low back to reduce pain and speed healing and return to the ER should you have any further concerns Print Language: Finnish Disposition Disposition: Home, Self Care Discharge Date/Time: 04/09/25 23:58
[2025-04-09 23:45] VITALS: BP 165/87; PULSE 87; PULSE 94; RESP 18; TEMP 36.8; O2SAT 98; O2SAT 99
[2025-04-09] MEDS: HYDROcodone Bitartrate/Apap 5/325 Tablet PO (23:50)
[2025-04-09] MEDS: Orphenadrine 100 MG Tablet PO (23:51)
== END 2025-04-09 23:58 | disposition home or self-care (01) ==
PROVIDERS: Emergency Provider Emergency Medicine; PCP Internal Medicine; Visit Provider Emergency Medicine
DX: S63.114A Dislocation of metacarpophalangeal joint of right thumb, initial encounter (principal); I27.21 Secondary pulmonary arterial hypertension; S39.012A Strain of muscle, fascia and tendon of lower back, initial encounter; Z91.81 History of falling; W19.XXXA Unspecified fall, initial encounter; I10 Essential (primary) hypertension; E03.9 Hypothyroidism, unspecified; M81.0 Age-related osteoporosis without current pathological fracture; M54.16 Radiculopathy, lumbar region; Z86.73 Personal history of transient ischemic attack (TIA), and cerebral infarction without residual deficits; Z79.82 Long term (current) use of aspirin; Z79.890 Hormone replacement therapy; Z79.899 Other long term (current) drug therapy
CPT/HCPCS: 26641; 72100; 73130; 99284

== ENCOUNTER 2025-04-13 08:57 | Emergency (ER) | payer MEDICARE, BC, SELFPAY ==
[2025-04-13 08:58] VITALS: BP 152/116; PULSE 76; RESP 17; TEMP 36; O2SAT 98
--- NOTE | 2025-04-13 09:14 | CT_ITS ---
PROCEDURE: PELVIS WITHOUT IV CONTRAST 04/13/2025 REASON FOR EXAM: FALL AND LEFT SIDED PAIN TECHNIQUE: PELVIS WITHOUT IV CONTRAST One or more dose reduction techniques were used (e.g., Automated exposure control, adjustment of the mA and/or kV according to patient size, use of iterative reconstruction technique). RADIATION DOSE SUMMARY: DLP: 330 mGycm COMPARISON: Same day L-spine CT. FINDINGS: Bones: Nondisplaced transverse fracture of the sacrum at the approximate S3-4 region (sagittal image 74). See same day CT L-spine for discussion of osseous findings, including the bilateral sacral insufficiency fractures and chronic left L5 transverse process fracture. Hip Joints: Mild degenerative changes. Otherwise intact and unremarkable. SI Joints: Mild degenerative changes. Soft Tissues: Unremarkable. Distal colonic diverticulosis. Fibroid uterus. Calcific plaque of the aortoiliac vessels. CT/Pelvis without IV Contrast IMPRESSION: Nondisplaced fracture of the sacrum. See same day CT L-spine for discussion of bilateral sacral insufficiency fractures and chronic left L5 transverse process fracture. Reading Location: [id number]
--- NOTE | 2025-04-13 09:14 | CT_ITS ---
PROCEDURE: SPINE LUMBAR WITHOUT CONTRAST 04/13/2025 REASON FOR EXAM: FALL 1 week ago, seen in the ER 1 week ago for low back pain. Pain now worsening. TECHNIQUE: SPINE LUMBAR WITHOUT CONTRAST Coronal and Sagittal reconstruction series were provided. One or more dose reduction techniques were used (e.g., Automated exposure control, adjustment of the mA and/or kV according to patient size, use of iterative reconstruction technique. COMPARISON: L-spine radiographs 04/07/2025. RADIATION DOSE SUMMARY: DLP: 330 mGycm FINDINGS: Vertebrae: Mild chronic multilevel vertebral body height loss. No acute fracture or traumatic spondylosis. Chronic fracture deformity of the left L5 transverse process. Diffuse osseous demineralization. Alignment: Mild levoscoliosis of the lower lumbar spine. There is stable grade 1 spondylolisthesis at L2-5. Posterior disc bulging with vacuum phenomenon at L4-5 with intervertebral disc narrowing. Additional moderate multilevel degenerative disc disease, thickening of the posterior longitudinal ligament and hypertrophy of the facet joints resulting in mild multilevel central and neural foraminal stenosis. Sacrum: Bilateral sacral insufficiency fractures (for example series 2, image 82 on the right and image 85 on the left). CT/Spine Lumbar without Contrast IMPRESSION: No acute lumbar fracture. Bilateral sacral insufficiency fractures. Severe de generative disc disease at L4-5. Reading Location: [id number]
--- NOTE | 2025-04-13 09:17 | ED.VIS.BACK ---
HPI History of Present Illness Chief Complaint: Back Informant: patient and family Onset/Context/Timing Onset: Weeks Context: Sudden Onset Timing: Continuous Quality: Sharp Location: - (Left iliac crest radiating down her left leg.) Current Severity: Moderate Maximum Severity: Moderate Worsened by: improves with Movement Relieved by: Remaining Still Associated Symptoms Associated Symptoms: Radiation to Left Leg; Negative for Fever, Abdominal Pain, Dysuria, Unable to Ambulate, Unable to Transfer, Urinary Retention, Urinary Incontinence, Constipation or Fecal Incontinence Narrative Narrative: 84-year-old female fell about 2 weeks ago. Was seen in the ER around the 25th. Had a plain x-ray of her lumbar spine showing degenerative disc disease. She does having pain and having difficulty around her house due to the pain. Basically she was pulling something in her house fell backwards landing on her butt causing pain around the left posterior iliac crest and SI joint area. She does have pain going down her leg. She did not hit her head. No other injuries. Patient is accompanied by her daughter. Patient lives alone. Currently she is on hydrocodone for pain and muscle relaxant and prednisone. Prior similar symptoms: No Recent Illness/Hospitalization: No PFSH PFS Medical History Strain of left hip Lumbar radiculopathy Lumbar strain Hypertension Stroke/cerebrovascular accident Secondary pulmonary arterial hypertension Mitral valve annular calcification Circumscribed scleroderma Osteoporosis Hypothyroidism Essential hypertension Home Medications ?Medication ?Instructions ?Recorded ?Last Taken ?Type cholecalciferol (vitamin D3) 50 50 mcg PO DAILY 03/01/22 Unknown History mcg (2,000 unit) capsule multivitamin 1 tab PO DAILY SUPPLEMENT 03/01/22 Unknown History vitamin B complex 1 tab PO DAILY SUPPLEMENT 03/01/22 Unknown History vitamins A,C,E-ujlj-bgtebv 4,296 1 cap PO BID EYE HEALTH 03/01/22 Unknown History mcg-226 mg-90 mg capsule (PreserVision AREDS) [id number] 250 1 tab PO ONCE PRN pain 03/03/22 Unknown History mg-250 mg-65 mg tablet (Excedrin Extra Strength) propylene glycol 0.6 % eye drops 1 drp ophthalmic (eye) DAILY PRN 03/03/22 Unknown History (Systane Balance) dry eye(s) calcium 500 mg (as 1 tab PO DAILY SUPPLEMENT 06/01/22 Unknown History carbonate)-vitamin D3 10 mcg (400 unit) tablet (Calcium 500 + D) omega-3 fatty acids 1,000 mg PO DAILY SUPPLEMENT 05/13/23 Unknown History sertraline 50 mg tablet 50 mg PO QDAY 10/03/24 Unknown History alendronate 70 mg tablet 70 mg PO QWEEK OSTEOPOROSIS #12 12/27/24 Unknown Rx tabs levothyroxine 112 mcg tablet 112 mcg PO DAILY Hypothyroidism 12/27/24 Unknown Rx #90 tabs prednisone 10 mg tablet 10 mg PO DAILY #30 tabs 04/07/25 Unknown Rx hydrocodone-acetaminophen 5-325mg 1 tab PO Q6H PRN PRN Pain 3 days 04/09/25 Unknown Rx 5mg-325mg #12 TABLETS methocarbamol 500 mg tablet 500 mg PO TID PRN Muscle 04/09/25 Unknown Rx pain/spasm #30 tabs hydrocodone-acetaminophen 5-325mg 1 tab PO Q6H PRN PRN Pain 5 days 04/13/25 Unknown Rx 5mg-325mg #15 TABLETS Allergy/AdvReac Type Severity Reaction Status Date / Time Sulfa (Sulfonamide Allergy UNKNOWN Verified 04/13/25 09:00 Antibiotics) Family History Father Cancer bladder Mother Hypertension Heart disease CHF COPD (chronic obstructive pulmonary disease) Anemia Arthritis Age related osteoporosis Brother Cancer pancreatic Brother Pulmonary embolism Skin cancer Surgical History History of ankle surgery S/P ERCP S/P laparoscopic cholecystectomy (~04/2023) History of cataract surgery Social History adopted: No household members: none number of children: 4 current occupational status: 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 Left lower back pain post fall. Constitutional Constitutional ED: Denies chills or fever(s) Eyes Eyes: Denies blurry vision ENT ENT ED: Denies ear pain Cardiovascular Cardiovascular: Denies chest pain or palpitations Respiratory/Chest Respiratory/Chest: Denies dyspnea Gastrointestinal Gastrointestinal: Denies abdominal pain Genitourinary Genitourinary ED: Denies dysuria or hematuria Musculoskeletal Musculoskeletal: Reports back pain; Denies arthralgias, myalgias or neck pain Integumentary Denies abscess, Abrasions or rash Neurologic Neurologic: Denies headache(s) Psychiatric Psychiatric: Denies anxiety or depression Endocrine Endocrinology: Denies cold intolerance Hematologic/Lymphatic Hematologic/Lymphatic: Denies easy bleeding or easy bruising Allergic/Immunologic Allergic/Immunologic ED: Denies mouth swelling or tongue swelling EXAM Physical Exam Narrative Exam Narrative: 84-year-old female sitting upright in bed. Accompanied by her daughter. Vital signs are stable blood pressure elevated. She is afebrile. No acute distress. H EENT exam pupils round react light. Dry mucous membranes. No signs of trauma to her face or scalp. Nontender. C-spine and trachea nontender. Back the cervical, thoracic and lumbar spine posterior ribs are nontender. There is no signs of trauma. She does have tenderness of her left SI joint. There is no ecchymosis or bruising. Pelvic girdle intact. Lungs clear. Heart regular rhythm rate about 75 no murmur. Chest wall and ribs are nontender. Abdomen soft nontender. Nondistended. Moving all 4 extremities. 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 Dorsi plantarflexion intact. Her legs are nontender. Neurologically she is awake and alert. Answering questions and following commands. GCS of 15. Const Vital Signs: 04/13/25 08:58 04/13/25 09:24 Temperature 96.8 F L Temperature Source Temporal Pulse Rate 76 71 Respiratory Rate 17 12 Blood Pressure 152/116 H 160/91 H Blood Pressure Mean 128 114 Pulse Ox 98 96 Oxygen Delivery Method Room Air Room Air Positive well nourished and well developed; Negative for obese, cachectic, contractures or unkempt General Appearance ED: well developed and NAD; Negative for unkempt, cachectic, contractures or pallor Nutritional Appearance: Negative for cachectic or obese HEENT Reports dry mucous membranes; Denies moist mucous membranes Negative for trauma or tenderness Mouth ED: Yes dry mucous membranes Mouth: dry mucous membranes Eyes PERRL and EOMs intact bilaterally General Eye ED: Negative for pale conjunctiva or scleral icterus Neck no lymphadenopathy, supple and no JVD General: Negative for tenderness Resp normal respiratory effort and clear to auscultation bilaterally Effort and Inspection: Negative for pain with movement Auscultation: Negative for rales, rhonchi, wheezes or diminished lung sounds Cardio regular rate, regular rhythm, S1 normal heart sound, S2 normal heart sound and no murmurs Rate: Negative for bradycardia or tachycardic Rhythm: Negative for abnormal rhythm Bruits: Negative for other GI normal to inspection, nondistended, normoactive bowel sounds, soft to palpation, non-tender, non-distended and no masses Inspection: Negative for abdominal distention Auscultation: Negative for hyperactive bowel sounds Palpation: Negative for tender, guarding, hepatomegaly, splenomegaly, mass, pulsatile mass or rebound tenderness present Back/Spine normal to inspection and no thoracic nor lumbar tenderness General Back: Negative for CVA tenderness Cervical Spine: Negative for cervical spine tenderness and Negative for paracervical muscle tenderness Thoracic Spine / Upper Back: Negative for paraspinal muscle tenderness Lumbar Spine / Lower Back: straight leg raise positive - left Extremity normal to inspection and no clubbing, cyanosis or edema General Extremety ED: Negative for edema or tenderness General Extremity: Negative for edema Neuro oriented x3 and no sensory deficits noted Sensorium / Orientation: alert; Negative for confused, lethargic or stuporous Motor Exam: strength 5/5 throughout Psych mental status grossly normal Appearance: Negative for unkempt Attitude: No agitated Mood & Affect: Negative for depressed, sad or tearful Skin no rashes or lesions noted and no wounds General Skin Exam: Negative for jaundice or pallor Lesions: No lesion noted Rashes: No rashes noted Trauma: Negative for abrasion or puncture Wounds: Negative for wounds noted MDM MDM MDM Narrative Medical decision making narrative: 84-year-old female fell around 2 weeks ago. Complaining of pain left iliac crest. Was seen in the emergency department and x-rays showed arthritis. No obvious fracture. She is on hydrocodone for pain, muscle relaxant and prednisone. Pain is not getting any better and she has no radiation down her left leg. She denies any other injuries. Daughter says she is eating and drinking very little at home. She does care for herself and lives alone. Daughter does help her. CAT scan of her pelvis and lumbar spine to be obtained to rule out any fracture was not seen on the plain film. Should be given morphine for pain and Zofran. Half a liter normal saline. Screening labs evaluated for dehydration. Repeat exam patient is doing well at 10:45 AM. Both she and her daughter are comfortable with her being discharged home. We went over all of her test results the mild dehydration. She is a history of hyponatremia. She will be written for [employer] for pain. She knows to be using a stool softener increase your fluid intake. And outpatient follow-up as needed. Or return if worse. They are comfortable with her being discharged to home. History & Record Review Discussion w/independent historian: Patient and Family Additional record(s) reviewed:: Prior inpatient record, Prior outpatient record, Prior ED visit and Prior labs Lab Data Attestation: I reviewed the patient's lab results. Lab results narrative: CBC shows a white count of 8 H&H 13 and 36. Platelets 335. Electrolytes show sodium 130. Gap 11. BUN/creatinine 26 and 0.7. Glucose 92. Labs: Laboratory Results - last 24 hr 04/13/25 09:20 WBC 8.7 RBC 4.07 L Hgb 13.1 Hct 36.7 L MCV 90.2 MCH 32.2 H MCHC 35.7 RDW Std Deviation 40.5 RDW Coeff of Rhina 12.3 Plt Count 335 MPV 9.0 Immature Gran % (Auto) 0.600 Neut % (Auto) 70.3 H Lymph % (Auto) 16.4 L [place] % (Auto) 11.2 H Eos % (Auto) 0.8 Baso % (Auto) 0.7 Absolute Neuts (auto) 6.1 Absolute Lymphs (auto) 1.42 Nucleated RBC % 0 Sodium 130 L Potassium 3.9 Chloride 95 L Carbon Dioxide 24.0 Anion Gap 11 BUN 26 H Creatinine 0.76 Estim Creat Clear Calc 40.48 L Est GFR (MDRD) Non-Af 77 BUN/Creatinine Ratio 34.2 H Glucose 92 Calcium 8.8 Radiography Diagnostic Testing: Clinical Impression(s) from Imaging Studies Lumbar Spine CT 04/13/25 09:14 IMPRESSION: No acute lumbar fracture. Bilateral sacral insufficiency fractures. Severe degenerative disc disease at L4-5. Reading Location: [facility] Pelvis CT 04/13/25 09:14 IMPRESSION: Nondisplaced fracture of the sacrum. See same day CT L-spine for discussion of bilateral sacral insufficiency fractures and chronic left L5 transverse process fracture. Reading Location: [facility] Discharge Plan Triage Chief Complaint: Back ED Provider: Juan Fregoso Dx/Rx/DC Orders Clinical Impression: Fall, Back pain, Acute left lumbar radiculopathy, Sacral fracture, Acute dehydration, Constipation Instructions: Dehydration, Understanding Lumbar Radiculopathy, ED Back Pain (Acute or Chronic), ED Dehydration (Adult) Prescriptions: New hydrocodone-acetaminophen 5-325 mg tablet 1 tab PO Q6H PRN PRN (Reason: Pain) 5 Days Qty: 15 0RF No Action cholecalciferol (vitamin D3) 50 mcg (2,000 unit) capsule 50 mcg PO DAILY multivitamin Tablet 1 tab PO DAILY PreserVision AREDS 14,320-226-200 [id number] capsule 1 cap PO BID vitamin B complex Tablet 1 tab PO DAILY Systane Balance 0.6 % drops 1 drp ophthalmic (eye) DAILY PRN (Reason: dry eye(s)) Excedrin Extra Strength 250-250-65 mg tablet 1 tab PO ONCE PRN (Reason: pain) calcium carbonate-vitamin D3 [Calcium 500 + D] 500 mg-10 mcg (400 unit) tablet 1 tab PO DAILY sertraline 50 mg tablet 50 mg PO QDAY prednisone 10 mg tablet 10 mg PO DAILY Qty: 30 0RF Rx Instructions: 4 tablets daily x3 days, then 3 tablets daily x3 days, then 2 tablets daily x3 days, then 1 tablet daily x3 days omega-3 fatty acids Capsule 1,000 mg PO DAILY methocarbamol 500 mg tablet 500 mg PO TID PRN (Reason: Muscle pain/spasm) Qty: 30 0RF hydrocodone-acetaminophen 5-325 mg tablet 1 tab PO Q6H PRN PRN (Reason: Pain) 3 Days Qty: 12 0RF levothyroxine 112 mcg tablet 112 mcg PO DAILY Qty: 90 1RF alendronate 70 mg tablet 70 mg PO QWEEK Qty: 12 1RF Primary Care Provider: Cayla Caicedo Referrals: Cayla Caicedo MD [Primary Care Provider] - 3-5 Days if not improving Activity Restrictions/Additional Instructions: Plenty of fluids, fruits, vegetables, fiber, stool softener and magnesium citrate to help you with any constipation. Plenty of fluids for your dehydration. Water, 7-Up and Gatorade. Blanket (hydrocodone) for your back pain. It is a narcotic pain medication. Follow-up with your doctor if not improving. Return if worse. You have L4-5 disc that is causing the pain down your lower leg. Hopefully the steroid will improve that Print Language: [place] Disposition Disposition: Home, Self Care
[2025-04-13 09:24] VITALS: BP 160/91; PULSE 71; RESP 12; O2SAT 96
[2025-04-13] MEDS: 0.9% Normal Saline (500mL Bag) 500 ML 1000 ML IV (09:24)
[2025-04-13 09:25] LABS: Absolute Lymphocyte Count 1.42 X10^3/uL (0.83-4.51); Absolute Neutrophil Count 6.1 X10^3/uL (2.0-7.7); Basophil# 0.06 X10^3/uL; Basophil% 0.7 % (0-1); Eosinophil# 0.07 X10^3/uL; Eosinophils% 0.8 % (0-5); Hematocrit 36.7 % (37-47); Hemoglobin 13.1 g/dL (12.0-15.0); Lymphocyte # 1.42 X10^3/ul (0.83-4.51); Lymphocyte % 16.4 % (19-41); Mean Corp Hgb Conc 35.7 g/dL (32-36); Mean Corpuscular Hgb 32.2 pg (27.0-32.0); Mean Corpuscular Volume 90.2 fL (81-99); Monocyte# 0.97 X10^3/uL; Monocyte% 11.2 % (0-10); NRBC Flagged by Analyzer 0 % (0-5); Neutrophil # 6.09 X10^3/uL (2.7-7.7); Neutrophil % 70.3 % (47-70); Platelet Count 335 K/mm3 (150-450); RBC Distribution Width CV 12.3 % (11.6-14.6); RBC Distribution Width SD 40.5 fl (35.1-43.9); Red Blood Count 4.07 M/mm3 (4.2-5.4); White Blood Count 8.7 K/mm3 (4.4-11.0)
[2025-04-13] MEDS: Morphine 4 MG/ML Syringe IV (09:25)
[2025-04-13] MEDS: Ondansetron 4 MG/2 ML Vial IV (09:25)
[2025-04-13 09:28] VITALS: BMI 19.8
--- OUTSIDE RECORDS SUMMARY | 2025-04-13 09:42 | XMS RPT_ITS | CCD ---
Author Organization [facility] CliniSytn Care Team Providers Care Biometric Fingerprinting Technician Name Role Phone DoriKristie E Unavailable Dilan Corley Unavailable Lynda Monteiro Unavailable Unavailable John Puri Unavailable Unavailable Sandeep, Sandy Unavailable Unavailable Kellie Mitchell Unavailable Unavailable Unavailable Unavailable DoriKristie E Unavailable Dilan Corley Unavailable John Puri Unavailable Unavailable Manchak, Sandy Unavailable Unavailable Lynda Monteiro Unavailable Unavailable Kellie Mitchell Unavailable Unavailable Unavailable Unavailable Keyla Lion Unavailable Unavailable John Puri Unavailable Unavailable Manchak, Sandy Unavailable Unavailable John Corbett Unavailable Unavailable Priscilla Morales Unavailable Unavailable Kristie Meadows CNP Unavailable Dr. Dilan Corley Unavailable John Corbett LPN Unavailable Unavailable Ayad Keyla Unavailable Unavailable Manchak BLANCHE, Sandy Unavailable Unavailable Unavailable Unavailable Christel Simpson Unavailable Salma Russell LPN Unavailable Unavailable Kristie Meadows Unavailable Jarod Shabazz MD Unavailable Dori DIAMOND GRINDER, DIAMOND GRINDER-C Kristie Primary Care Provider Dori DIAMOND GRINDER, DIAMOND GRINDER-C Kristie Referring Provider [phone] Dr. Jarod Shabazz Attending Provider MAIKEL Lobato Attending Provider Martina Conner CNP Unavailable Kristie Meadows Unavailable Su Smith Unavailable Ubaldo HYPNOTHERAPIST, Martina Unavailable Ubaldo HYPNOTHERAPIST, Martina Unavailable Lyman CONSULTING APPLICATION ENGINEER, Kayela Unavailable Unavailable Buzz DIAMOND GRINDER, DIAMOND GRINDER-C Daniella Attending Provider Delfino Yessenia MEYER Unavailable Unavailable Ubaldo HYPNOTHERAPIST, Martina Attending Unavailable Ubaldo HYPNOTHERAPIST, Martina Referring Unavailable Ubaldo HYPNOTHERAPIST, Martina Consulting Unavailable Franc LINER WORKER, STEVEN Unavailable Unavailable Ubaldo, DIAMOND GRINDER-C Martina Primary Care Provider Dr. Marisel Weiner Emergency Provider Miguel, Dr. Lauren Barrera Admit Provider Dr. Lauren Rivera Other Provider Dr. Nicole Tobias Attending Provider Dr. Nicole Tobias Other Provider Dr. Rojas Louis Referring Provider Ebony, Dr. Soria Attending Provider Dr. Lauren Rivera Attending Provider Dr. Rojas Louis Other Provider Dr. Rojas Louis Attending Provider Joe KO, PA-C Hillary Attending Provider Ubaldo, DIAMOND GRINDER-C Martina Referring Provider Dr. Jarod Shabazz Attending Provider Clyde, Nader Unavailable Unavailable Ubaldo DIAMOND GRINDER-C, Martina Primary Care Provider Ubaldo DIAMOND GRINDER-C, Martina Attending Provider Ubaldo DIAMOND GRINDER-C, Martina Referring Provider Mariam Aviles Attending Provider Marifer OCASIO, Dr. Kulkarni Attending Provider Dr. Cayla Caicedo MD Primary Care Provider [phone] Marifer MD, Dr. Cayla Referring Provider Ubaldo DIAMOND GRINDER-C, Martina Primary Care Provider Ubaldo DIAMOND GRINDER-C, Martina Referring Provider King NINFA, Dr. Jones Attending Provider [phone] Thomas Stahl Attending Provider Thomas Stahl Referring Provider Dr. Ihsan Garcia DO Emergency Provider [phone] Ubaldo, Martina Primary Care Unavailable Ubaldo, Amrtina Attending Unavailable Ubaldo, Martina Referring Unavailable Toni Sharma Attending Unavailable Ubaldo, Martina Primary Care Unavailable Ihsan Garcia Attending Unavailable Marifer, Cayla Primary Care Unavailable Thomas Stahl Attending Unavailable Thomas Stahl Referring Unavailable Kivalina, Cayla Primary Care Unavailable Marifer, Cayla Primary Care Unavailable Marifer, Cayla Attending Unavailable Kivalina, Cayla Referring Unavailable Ubaldo, Martina Attending Unavailable Ubaldo, Martina Referring Unavailable Ubaldo, Martina Primary Care Unavailable Thomas Stahl Attending Unavailable Kivalina, Cayla Referring Unavailable Kivalina, Cayla Primary Care Unavailable Marifer, Cayal Primary Care Unavailable Kivalina, Cayla Referring Unavailable Robert Funk Attending Unavailable Kivalina, Cayla Attending Unavailable Ubaldo, Martina Referring Unavailable Ubaldo, Martina Primary Care Unavailable Mariam Aviles Attending Unavail able Ubaldo, Martina Referring Unavailable Ubaldo, Martina Primary Care Unavailable Ubaldo, Martina Attending Unavailable Ubaldo, Martina Referring Unavailable Ubaldo, Martina Primary Care Unavailable Ubaldo, Martina Primary Care Unavailable Ubaldo, Martina Attending Unavailable Ubaldo, Martina Referring Unavailable Allergies Allergy Classification Reported Allergen(s) Allergy Type Date of Onset Reaction(s) Facility Sulfonamides (antibiotic) (5 sources) Sulfonamides (Antibiotic); Translations: [Sulfa Drugs] Drug Allergy [facility]; [facility] Work Phone: (20 sources) Sulfonamides (Antibiotic); Translations: [Sulfa Drugs] allergy to substance [facility] Work Phone: (11 sources) Sulfonamides (Antibiotic) Allergy to substance 08-17-202 2 UNKNOWN [facility] (1 source) Sulfonamides (Antibiotic) Drug allergy (disorder) 5 [facility] Rep[facility] Medications Current Medications Medication Drug Class(es) Dates Sig (Normalized) Sig (Original) acetaminophen 250 mg / aspirin 250 mg / caffeine 65 mg oral tablet (20 sources) Platelet Aggregation Inhibitor, Nonsteroidal Anti-inflammatory Drug, Central Nervous System Stimulant, Methylxanthine Start: 03-03-2022 Aspirin-Acetamin ophen-Caffeine (Excedrin Extra Strength) 250-250-65 mg tablet Active 1 {tbl} PO ONCE as needed for pain March 03, 2022 12:00am Excedrin as need ed Active Comments: Medication taken as needed. Extra strengtj Comment on above: Medication taken as needed. Extra strengtj acetaminophen 325 mg / HYDROcodone bitartrate 5 mg oral tablet (2 sources) Opioid Agonist Start: 5 take 1 tablet by mouth every six hours as needed for pain Hydrocodone-Acet aminophen 5-325 mg tablet Active 1 {tbl} PO EVERY 6 HOURS NEEDED as needed for Pain 12 3 April 09, 2025 calcium carbonate 1250 mg / cholecalciferol 0.01 mg oral tablet (20 sources) Vitamin D Start: 2 Calcium Carbonate-Vitami n D3 (Calcium 500 + D) 500 mg-10 mcg (400 unit) tablet Active 1 {tbl} PO DAILY June 01, 2022 12:00am End: 04-09-2019 take 1 tablet by mouth once daily CALCIUM-CARB 600 + D, [id number] (Oral Tablet) 1 qd for 0 days Refills: 0 Ordered: 09-Apr-2019 Kristie Meadows CNP, CNP, Mary E End : 09-Apr-2019 Discontinued Comments: This order discontinued per [facility]. Comment on above: This order discontin ued per [facility]. cholecalciferol 0.05 mg oral capsule (20 sources) Vitamin D Start: 022 take 1 capsule by mouth once daily Cholecalciferol (Vitamin D3) 50 mcg (2,000 unit) capsule Active 50 ug PO DAILY March 01, 2022 12:00am Start: 12-15-2021 take 1 tablet by alicia th once daily Vitamin D3 50 MCG (2000 UT) Oral Tablet 1 (one) Tablet daily for 0 days Quantity: 30 {Tablet} Refills: 0 Ordered: 15-Dec-2021 Kristie Meadows Start : 15-Dec-2021 Active Start: 02-24-2017 take 1 tablet by alicia th once daily Vitamin D3 2000 UNIT Oral Tablet 1 (one) Tablet Tablet daily for 0 days Quantity: 30 {Tablet} Refills: 0 Ordered: 27-Mar-2017 Sandy Hopkins CMA Start : 24-Feb-2017 Active levothyroxine sodium 0.112 mg oral tablet (20 sources) l-Thyroxine Start: 12-26-2024 End: 12-27-2024 take 1 tablet by mouth once daily Levothyroxine 112 mcg tablet Active 112 ug PO DAILY December 27, 2024 12:20pm Start: 03-28-2024 End: 12-26-2024 Levothyroxine (Synthroid) 88 mcg tablet Discontinued 112 ug PO DAILY March 28, 2024 8:37am December 26, 2024 8:33am Start: 08-04-2023 take 1 tablet by alicia once daily Synthroid 112 mcg oral tablet 1 Tablet qd for 90 days Quantity: 90 {Tablet} Refills: 3 Ordered: 04-Aug-2023 Martina Conner CNP Start : 04-Aug-2023 Active Start: 12-19-2022 End: 03-28-2024 take 1 tablet by mouth once daily Levothyroxine (Synthroid) 88 mcg tablet Discontinued 88 ug PO DAILY December 29, 2022 2:40pm March 28, 2024 8:38am Start: 11-04-2022 take 1 tablet by alicia once daily Synthroid 88 mcg oral tablet 1 Tablet daily for 90 days Quantity: 90 {Tablet} Refills: 3 Ordered: 04-Nov-2022 Martina Conner CNP Start : 04-Nov-2022 Active Start: 06-01-2022 End: 12-29-2022 take 1 tablet by mouth six times weekly Levothyroxine (Synthroid) 88 mcg tablet Discontinued 88 ug PO 6 times per week June 01, 2022 3:07pm December 29, 2022 2:41pm Start: 12-15-2021 End: 06-01-2022 take 1 tablet by mouth once daily Levothyroxine (Synthroid) 88 mcg tablet Discontinued 88 ug PO DAILY March 01, 2022 12:00am June 01, 2022 3:09pm Start: 09-29-2021 take 1 tablet by alicia th once daily Synthroid 88 MCG Oral Tablet 1 Tablet daily except for none on Monday for 90 days Quantity: 90 {Tablet} Refills: 3 Ordered: 29-Sep-2021 Dori MACHADO Ludy Ciantoniotiesha MACHADO Kristie Tsang Start : 29-Sep-2021 Active Start: 12-21-2020 Synthroid 88 M CG Oral Tablet 1 Tablet daily for 90 days Quantity: 90 {Tablet} Refills: 3 Ordered: 21-Dec-2020 John Corbett LPN Start : 21-Dec-2020 Active Comments: 1 tab daily and 1/2 on monday Start: 04-10-2020 take 1 tablet by alicia th once daily, then take 0.5 tablet by mouth Synthroid 88 MCG Oral Tablet 1 Tablet daily for 90 days Quantity: 90 {Tablet} Refills: 3 Ordered: 10-Apr-2020 Luciaantoniotiesha MACHADO Ludy Cipernell JEANNETTE Kristie Tsang Start : 10-Apr-2020 Active Comments: 1 tab daily and 1/2 on monday Start: 04-09-2019 take 1 tablet by alicia th once daily Synthroid 88 MCG Oral Tablet 1 Tablet daily for 90 days Quantity: 90 {Tablet} Refills: 3 Ordered: 09-Apr-2019 Dori JEANNETTE Ludy Dori JEANNETTE Kristie Tsang Start : 09-Apr-2019 Active Start: 03-04-2019 take 1 tablet by alicia th once daily, then take 2 tablets by mouth Synthroid 75 MCG Oral Tablet 1 Tablet 1 daily and 2 on monday for 0 days Quantity: 90 {Tablet} Refills: 3 Ordered: 04-Mar-2019 Dori JEANNETTE Kristie Meadows CNP Kristie Tsang Start : 04-Mar-2019 Active Start: 07-24-2018 take 1 tablet by alicia th once daily Synthroid 75 MCG Oral Tablet 1 Tablet qd for 0 days Quantity: 90 {Tablet} Refills: 3 Ordered: 24-Jul-2018 Luciaantoniotiesha MACHADO Ludy Dori JEANNETTE Kristie Tsang Start : 24-Jul-2018 Active Comment on above: 1 tab daily and 1/2 on monday methocarbamol 500 mg oral tablet (2 sources) Muscle Relaxant Start: 5 take 1 tablet by mouth three times daily as needed for pain Methocarbamol 500 mg tablet Active 500 mg PO THREE TIMES A DAY as needed for Muscle pain/spasm April 09, 2025 11:39pm Multivitamin preparation (20 sources) Start: 2 take 1 tablet by mouth once daily Multivitamin Active 1 TABLET PO DAILY March 01, 2022 8:48pm Start: 03-01-2022 take 1 tablet by alicia th once daily Multivitamin Active 1 TABLET PO DAILY February 28, 2022 11:00pm Start: 03-01-2022 take 1 tablet by alicia th once daily Multivitamin Active 1 TABLET PO DAILY March 01, 2022 12:00am Start: 03-24-2008 End: 03-24-2008 MULTIVITAMIN (Oral Liquid) L iquid for 0 days Refills: 0 Ordered: 24-Mar-2008 STEVEN Bruner LPN Start : 24-Mar-2008 End : 24-Mar-2008 Discontinued Start: 03-24-2008 End: 03-24-2008 MULTIVITAMIN (Oral Liquid) L iquid for 0 days Refills: 0 Ordered: 24-Mar-2008 STEVEN Bruner Start : 24-Mar-2008 End : 24-Mar-2008 Discontinued Multivitamin tablet (4 sources) Start: 03-01-2022 Multivitamin t ablet Active 1 {tbl} PO DAILY March 01, 2022 12:00am Multivitamin With Minerals (Hair,Skin And Nails) tablet (15 sources) Start: 03-01-2022 take 1 tablet by mouth once daily Multivitamin With Minerals (Hair,Skin And Nails) tablet Active 1 TABLET PO DAILY March 01, 2022 8:48pm Start: 03-01-2022 End: 03-28-2024 Multivitamin With Minerals (Hair,Skin And Nails) tablet Discontinued 1 {tbl} PO DAILY March 01, 2022 12:00am March 28, 2024 8:53am Start: 03-01-2022 take 1 tablet by alicia th once daily Multivitamin With Minerals (Hair,Skin And Nails) tablet Active 1 TABLET PO DAILY February 28, 2022 11:00pm Start: 03-01-2022 take 1 tablet by alicia th once daily Multivitamin With Minerals (Hair,Skin And Nails) tablet Active 1 TABLET PO DAILY March 01, 2022 12:00am Parker-3 Fatty Acids (5 sources) Start: 05-13-2023 take 1000 mg by mout h once daily Parker-3 Fatty Acids Active 1000 MG PO DAILY May 12, 2023 11:00pm Start: 05-13-2023 take 1000 mg by mouth once alfonzo ly Parker-3 Fatty Acids Active 1000 MG PO DAILY May 13, 2023 12:00am Parker-3 Fatty Acids capsule (4 sources) Start: 05-13-2023 take 1 capsule by mouth once daily Parker-3 Fatty Acids capsule Active 1000 mg PO DAILY May 13, 2023 12:00am Parker-3 Fatty Acids-Fish Oil (Fish Oil) 340-1,000 mg capsule (15 sources) Start: 03-01-2022 take 1 capsule by mouth once daily Parker-3 Fatty Acids-Fish Oil (Fish Oil) 340-1,000 mg capsule Active 1 CAP PO DAILY March 01, 2022 8:47pm Start: 03-01-2022 End: 05-13-2023 Parker-3 Fatty Acids-Fish Oil (Fish Oil) 340-1,000 mg capsule Discontinued 1 NMA PO DAILY March 01, 2022 12:00am May 13, 2023 12:32pm Start: 03-01-2022 End: 05-13-2023 take 1 capsule by mouth once daily Parker-3 Fatty Acids-Fish Oil (Fish Oil) 340-1,000 mg capsule Discontinued 1 CAP PO DAILY February 28, 2022 11:00pm May 13, 2023 11:32am Start: 03-01-2022 End: 05-13-2023 take 1 capsule by mouth once daily Parker-3 Fatty Acids-Fish Oil (Fish Oil) 340-1,000 mg capsule Discontinued 1 CAP PO DAILY March 01, 2022 12:00am May 13, 2023 12:32pm Start: 03-01-2022 take 1 capsule by mo uth once daily Parker-3 Fatty Acids-Fish Oil (Fish Oil) 340-1,000 mg capsule Active 1 CAP PO DAILY February 28, 2022 11:00pm Start: 03-01-2022 take 1 capsule by mo uth once daily Parker-3 Fatty Acids-Fish Oil (Fish Oil) 340-1,000 mg capsule Active 1 CAP PO DAILY March 01, 2022 12:00am predniSONE 10 mg oral tablet (3 sources) Start: 04-07-2025 take 4 tablets by mouth once daily, then take 3 tablets by mouth once daily, then take 2 tablets by mouth once daily, then take 1 tablet by mouth once daily Prednisone 10 mg tablet Active 10 mg PO DAILY April 07, 2025 12:00am 4 tablets daily x3 days, then 3 tablets daily x3 days, then 2 tablets daily x3 days, then 1 tablet daily x3 days propylene glycol 6 mg/ml ophthalmic solution (15 sources) Start: 03-03-2022 take 0.6 drop(s) into the eye(s) once daily as needed Propylene Glycol (Systane Balance) 0.6 % drops Active 1 NMA OPHTHALMIC DAILY as needed for dry eye(s) March 03, 2022 12:00am Start: 03-03-2022 take 0.6 drop(s) int o the eye(s) once daily Propylene Glycol (Systane Balance) 0.6 % drops Active 1 DRP OPHTHALMIC DAILY March 03, 2022 12:00am sertraline 50 mg oral tablet (4 sources) Serotonin Reuptake Inhibitor Start: 10-03-2024 take 1 tablet by mouth once daily Sertraline 50 mg tablet Active 50 mg PO daily October 03, 2024 1:00am Vitamin B Complex (15 sources) Start: 03-01-2022 take 1 tablet by mouth once daily Vitamin B Complex Active 1 TABLET PO DAILY March 01, 2022 8:49pm Start: 03-01-2022 take 1 tablet by alicia th once daily Vitamin B Complex Active 1 TABLET PO DAILY February 28, 2022 11:00pm Start: 03-01-2022 take 1 tablet by alicia th once daily Vitamin B Complex Active 1 TABLET PO DAILY March 01, 2022 12:00am End: 02-24-2017 take 1 tablet by mouth once daily Vitamin B Complex Oral Tablet 1 qd for 0 days Refills: 0 Ordered: 24-Feb-2017 Salma Russell LPN End : 24-Feb-2017 Discontinued Vitamin B Complex tablet (4 sources) Start: 03-01-2022 Vitamin B Comp lauren tablet Active 1 {tbl} PO DAILY March 01, 2022 12:00am Vitamins A,C,X-Eqqs-Rctrfs (Preservision Areds) 14,320-226-200 walw-dk-xbfs capsule (15 sources) Start: 03-01-2022 take 1 capsule by mouth twice daily Vitamins A,C,N-Leef-Nmcmvk (Preservision Areds) 14,320-226-200 vqgy-cn-sgub capsule Active 1 CAP PO TWICE A DAY March 01, 2022 8:48pm Start: 03-01-2022 Vitamins A,C,E -Zinc-Copper (Preservision Areds) 14,320-226-200 vfsu-qt-dhil capsule Active 1 NMA PO TWICE A DAY March 01, 2022 12:00am Start: 03-01-2022 take 1 capsule by mo ut twice daily Vitamins A,C,O-Cvsx-Ygxwrb (Preservision Areds) 14,320-226-200 ubsh-bb-cxxu capsule Active 1 CAP PO TWICE A DAY February 28, 2022 11:00pm Start: 03-01-2022 take 1 capsule by mo [facility] twice daily Vitamins A,C,W-Tprv-Xtzwql (Preservision Areds) 14,320-226-200 wevr-do-shen capsule Active 1 CAP PO TWICE A DAY March 01, 2022 12:00am Completed/Discontinued Medications Medication Drug Class(es) Dates Sig (Normalized) Sig (Original) alendronic acid 70 mg oral tablet (20 sources) Bisphosphonate Start: 12-15-2021 End: 12-27-2024 take 1 tablet by mouth every week Alendronate 70 mg tablet Discontinued 70 mg PO EVERY WEEK March 01, 2022 12:00am December 27, 2024 12:21pm Start: 12-21-2020 take 1 tablet by alicia th every week Alendronate Sodium 70 MG Oral Tablet 1 (one) Tablet weekly for 90 days Quantity: 12 {Tablet} Refills: 3 Ordered: 21-Dec-2020 John Corbett LPN Start : 21-Dec-2020 Active Start: 03-16-2020 take 1 tablet by alicia th every week Alendronate Sodium 70 MG Oral Tablet 1 (one) Tablet weekly for 90 days Quantity: 12 {Tablet} Refills: 3 Ordered: 16-Mar-2020 Kristie Meadows CNP, CNP, Mary E Start : 16-Mar-2020 Active Start: 07-24-2018 End: 07-10-2019 take 1 tablet by mouth every week Fosamax 70 MG Oral Tablet 1 (one) Tablet q weekly for 0 days Quantity: 12 {Tablet} Refills: 3 Ordered: 10-Jul-2019 John Corbett LPN Start : 24-Jul-2018 End : 10-Jul-2019 Inactive amLODIPine 2.5 mg oral tablet (20 sources) Dihydropyridine Calcium [place] Start: 12-19-2022 End: 04-05-2024 take 1 tablet by mouth once daily Amlodipine 2.5 mg tablet Discontinued 2.5 mg PO DAILY December 29, 2022 12:00am April 05, 2024 8:42am Start: 10-19-2022 End: 12-29-2022 take 2.5 mg by mouth once daily Amlodipine 5 mg tablet Discontinued 2.5 mg PO DAILY October 19, 2022 5:21pm December 29, 2022 2:39pm Start: 10-19-2022 End: 12-29-2022 take 2.5 mg by mouth once daily Amlodipine Discontinue d 2.5 MG PO DAILY October 19, 2022 5:21pm December 29, 2022 2:39pm Start: 03-07-2022 End: 10-19-2022 take 1 tablet by mouth once daily Amlodipine 5 mg tablet Discontinued 5 mg PO DAILY March 07, 2022 12:00am October 19, 2022 5:21pm Start: 12-15-2021 End: 01-07-2022 take 1 tablet by mouth once daily amLODIPine Besylate 5 MG Oral Tablet 1 (one) Tablet daily for 0 days Quantity: 90 {Tablet} Refills: 3 Ordered: 07-Jan-2022 Dori Kristie Start : 15-Dec-2021 End : 07-Jan-2022 Inactive Start: 12-21-2020 take 1 tablet by alicia th once daily amLODIPine Besylate 5 MG Oral Tablet 1 (one) Tablet daily for 0 days Quantity: 90 {Tablet} Refills: 3 Ordered: 21-Dec-2020 John Corbett LPN Start : 21-Dec-2020 Active Start: 04-07-2020 take 1 tablet by alicia th once daily amLODIPine Besylate 5 MG Oral Tablet 1 (one) Tablet daily for 0 days Quantity: 90 {Tablet} Refills: 3 Ordered: 07-Apr-2020 Aric FERRARAJohn Start : 07-Apr-2020 Active Start: 03-16-2020 End: 04-07-2020 take 1 tablet by mouth once daily amLODIPine Besylate 2.5 MG Oral Tablet 1 (one) Tablet daily for 0 days Quantity: 90 {Tablet} Refills: 3 Ordered: 07-Apr-2020 Dori Kristie Start : 16-Mar-2020 End : 07-Apr-2020 Inactive Start: 04-09-2019 End: 07-10-2019 take 1 tablet by mouth once daily Norvasc 5 MG Oral Tablet 1 (one) Tablet daily for 0 days Quantity: 90 {Tablet} Refills: 3 Ordered: 10-Jul-2019 Kristie Meadows Start : 09-Apr-2019 End : 10-Jul-2019 Discontinued Start: 07-24-2018 take 1 tablet by alicia th once daily Norvasc 5 MG Oral Tablet 1 (one) Tablet daily for 0 days Quantity: 90 {Tablet} Refills: 3 Ordered: 24-Jul-2018 Kristie Meadows CNP, CNP, Mary E Start : 24-Jul-2018 Active ascorbic acid 60 mg / beta c arotene 5000 unt / copper sulfate 40 mg / dl-alpha tocopheryl acetate 30 unt / sodium selenite 0.04 mg / zinc oxide 40 mg oral tablet (20 sources) Vitamin C Multivitamin Dirk lt Oral Tablet Active End: 04-09-2019 take 1 tablet by mouth once daily Centrum Silver Oral Tablet 1 qd for 0 days Refills: 0 Ordered: 09-Apr-2019 Kristie Meadows CNP, CNP, Mary E End : 09-Apr-2019 Inactive ascorbic acid 113 mg / copper gluconate 0.4 mg / docosahexaenoic acid 87.5 mg / eicosapentaenoic acid 163 mg / lutein 2.5 mg / tocopherol acetate 100 unt / zeaxanthin 0.5 mg / zinc oxide 17.4 mg oral capsule (19 sources) Vitamin C take 2 capsules by mouth once daily PreserVision AREDS 2 Oral Capsule two daily Active azithromycin 250 mg oral tablet (20 sources) Macrolide Antimicrobial Start: End: 019 Zithromax Z-Royce 250 MG Oral Tablet 1 (one) Tablet TAD for 0 days Quantity: 1 {Package} Refills: 0 Ordered: 27-Feb-2019 Aric FERRARAJohn Start : 26-Oct-2018 End : 27-Feb-2019 Inactive CALCIUM-CARB 600 + D, [id number] (Oral Tablet) (20 sources) Provitamin D2 Compound End: 019 take 1 tablet by mouth once daily CALCIUM-CARB 600 + D, [id number] (Oral Tablet) 1 qd for 0 days Refills: 0 Ordered: 09-Apr-2019 Kristie Meadows End : 09-Apr-2019 Discontinued Comments: This order discontinued per [facility]. End: 04-09-2019 take 1 tablet by mouth once daily CALCIUM-CARB 600 + D, [id number] (Oral Tablet) 1 qd for 0 days Refills: 0 Ordered: 09-Apr-2019 Kristie Meadows Mary End : 09-Apr-2019 Discontinued Comments: This order discontinued per [facility]. End: 04-09-2019 take 1 tablet by mouth once daily CALCIUM-CARB 600 + D, [id number]-QTOH (Oral Tablet) 1 qd for 0 days Refills: 0 Ordered: 09-Apr-2019 Kristie Meadows CNP, CNP Ludy End : 09-Apr-2019 Discontinued Comments: This order discontinued per [facility]. take 1 tablet by alicia th once daily CALCIUM-CARB 600 + D, [id number] (Oral Tablet) 1 qd for 0 days Refills: 0 Ordered: 24-Jul-2018 Lynda Monteiro Active Comment on above: This order discontin ued per [facility]. Calcium+D (20 sources) Calcium+D Active Calcium-Carb 600 + D (4 sources) take 1 tablet by mouth once daily CALCIUM-CARB 600 + D, [id number] (Oral Tablet) 1 qd for 0 days Refills: 0 Ordered: 24-Jul-2018 Lynda Monteiro Active CALCIUM-CARB 600 + D, [id number] (Oral Tablet) (15 sources) End: 04-09-2019 take 1 tablet by mouth once daily CALCIUM-CARB 600 + D, [id number] (Oral Tablet) 1 qd for 0 days Refills: 0 Ordered: 09-Apr-2019 Dori MACHADO LudySharan Meadows CNP Ludy End : 09-Apr-2019 Discontinued Comments: This order discontinued per [facility]. take 1 tablet by mouth once peng y CALCIUM-CARB 600 + D, [id number] (Oral Tablet) 1 qd for 0 days Refills: 0 Ordered: 27-Feb-2019 John Puri Active Comment on above: This order discontin ued per [facility]. carbamide peroxide 65 mg/ml otic solution (20 sources) Start: End: 009 DEBROX, 6.5% (Otic Solution) 1 for 0 days Refills: 0 Ordered: 04-Mar-2009 STEVEN Bruner LPN Start : 04-Mar-2009 End : 12-Mar-2009 Inactive carboxymethylcellulose sodiu m 5 mg/ml ophthalmic solution (20 sources) EQ Restore Plus Lubricant Eye 0.5 % Ophthalmic Solution (0.5 %) Inactive Centrum Silver (4 sources) take 1 tablet by mouth once daily CENTRUM SILVER (Oral Tablet) 1 qd for 0 days Refills: 0 Ordered: 29-Apr-2009 STEVEN Bruner Active CENTRUM SILVER (Oral Tablet) (7 sources) take 1 tablet by mouth once daily CENTRUM SILVER (Oral Tablet) 1 qd for 0 days Refills: 0 Ordered: 29-Apr-2009 STEVEN Bruner Active Centrum Silver Oral Tablet (20 sources) End: take 1 tablet by mouth once daily Centrum Silver Oral Tablet 1 qd for 0 days Refills: 0 Ordered: 09-Apr-2019 Kristie Meadows End : 09-Apr-2019 Inactive End: 04-09-2019 take 1 tablet by mouth once daily Centrum Silver Oral Tablet 1 qd for 0 days Refills: 0 Ordered: 09-Apr-2019 Kristie Meadows Mary End : 09-Apr-2019 Inactive End: 04-09-2019 take 1 tablet by mouth once daily Centrum Silver Oral Tablet 1 qd for 0 days Refills: 0 Ordered: 09-Apr-2019 Kristie Meadows CNP, CNP, Mary E End : 09-Apr-2019 Inactive cephalexin 250 mg oral capsule (20 sources) Cephalosporin Antibacterial Start: 03-17-2009 End: 03-30-2009 take 1 capsule by mouth four times daily KEFLEX, 250MG (Oral Capsule) 1 (one) Capsule qid for 7 days Quantity: 28 {Capsule} Refills: 0 Ordered: 17-Mar-2009 Kristie Meadows Start : 17-Mar-2009 End : 30-Mar-2009 Inactive cyclobenzaprine hydrochloride 5 mg oral tablet (20 sources) Muscle Relaxant Start: 03-01-2022 End: 03-03-2022 take 1 tablet by mouth three times daily as needed Cyclobenzaprine 5 mg tablet Discontinued 5 mg PO THREE TIMES A DAY as needed March 01, 2022 12:00am March 03, 2022 9:15am Start: 12-15-2021 End: 01-14-2022 take 1-2 tablets by mouth once daily at bedtime as needed for pain Cyclobenzaprine HCl 5 MG Oral Tablet 1-2 Tablet qhs prn for shoulder/neck pain for 0 days Quantity: 30 {Tablet} Refills: 0 Ordered: 14-Jan-2022 John Corbett LPN Start : 15-Dec-2021 End : 14-Jan-2022 Inactive 1 ml denosumab 60 mg/ml prefilled syringe (20 sources) RANK Ligand Inhibitor Start: 03-27-2017 End: 08-30-2017 Prolia 60 MG/ML Subcutaneous Solution 1 (one) Solution q6mos for 0 days Quantity: 1 {Each} Refills: 1 Ordered: 30-Aug-2017 Terrie Corbett Start : 27-Mar-2017 End : 30-Aug-2017 Discontinued Comments: forms sent to [facility] Start: 03-27-2017 End: 08-30-2017 Prolia 60 MG/ML Subcutaneous Solution 1 (one) Solution q6mos for 0 days Quantity: 1 {Each} Refills: 1 Ordered: 30-Aug-2017 Terrie Corbett Start : 27-Mar-2017 End : 30-Aug-2017 Discontinued Comments: forms sent to [facility] Comment on above: forms sent to diplom at desoximetasone 2.5 mg/ml topical cream (20 sources) Corticosteroid Start: 10-03-2018 End: 02-27-2019 Desoximetasone 0.25 % External Cream 1 (one) Cream as needed for 0 days Quantity: 15 {Gram} Refills: 3 Ordered: 27-Feb-2019 John Corbett LPN Start : 03-Oct-2018 End : 27-Feb-2019 Inactive Comments: Medication taken as needed. Start: 12-26-2011 End: 02-24-2017 Topicort 0.25 % External Oin tment uad Ointment bid/prn to affected area(s) for 0 days Quantity: 1 {Ointment} Refills: 3 Ordered: 24-Feb-2017 Salma Russell LPN Start : 26-Dec-2011 End : 24-Feb-2017 Discontinued Comments: dispense 60 grams Comment on above: Medication taken as needed. dispense 60 grams docosahexaenoic acid 120 mg / eicosapentaenoic acid 180 mg oral capsule (20 sources) take 1 capsule by mouth once daily FISH OIL CONCENTRATE, 1000MG (Oral Capsule) 1 qd for 0 days Refills: 0 Ordered: 29-Apr-2009 STEVEN Bruner LPN Active ferrous sulfate 325 mg oral tablet (20 sources) Iron 325 (65 Fe) MG Oral Tablet Teresa Whitley Sat (325 (65 Fe) MG) Inactive FISH OIL CONCENTRATE, 1000MG (Oral Capsule) (20 sources) take 1 capsule by mouth once daily FISH OIL CONCENTRATE, 1000MG (Oral Capsule) 1 qd for 0 days Refills: 0 Ordered: 29-Apr-2009 STEVEN Bruner LPN Active Fish Oils (20 sources) End: 03-24 FISH OIL (Oil) End : 24-Mar-2008 Discontinued Hair Skin and Nails (20 sources) Hair Skin and Na ils Active liothyronine sodium 0.005 mg oral tablet (20 sources) l-Triiodothyronine Start : 12-08 End: 02-03 take 1 tablet by mouth once daily CYTOMEL, 5MCG (Oral Tablet) 1 (one) Tablet qd for 0 days Quantity: 30 {Tablet} Refills: 2 Ordered: 03-Feb-2011 STEVEN Bruner LPN Start : 08-Dec-2009 End : 03-Feb-2011 Inactive lutein 10 mg oral tablet (20 sources) End: 10-15 take 1 mg by mouth once daily Lutein 10 MG Oral Tablet daily (10 MG) End : 15-Oct-2018 Discontinued melatonin 3 mg oral capsule (20 sources) take 1 mg by mouth once daily at bedtime Melatonin 3 MG Oral Capsule qhs (3 MG) Active meloxicam 7.5 mg oral tablet (20 sources) Nonsteroidal Anti-inflammatory Drug Start : 03-17 End: 04-23 take 1 tablet by mouth once daily at mealtime Meloxicam 7.5 MG Oral Tablet 1 (one) Tablet daily as directed for 0 days Quantity: 30 {Tablet} Refills: 0 Ordered: 23-Apr-2021 Kristie Meadows Start : 17-Mar-2021 End : 23-Apr-2021 Inactive Comments: with food Comment on above: with food methylPREDNISolone 4 mg oral tablet (15 sources) Corticosteroid Start : 03-03 End: 06-01 take 1 tablet by mouth once daily Methylprednisolone (Medrol (Royce)) 4 mg tablets,dose pack Discontinued 4 mg PO DAILY March 03, 2022 12:00am June 01, 2022 3:08pm 24 hr metoprolol succinate 25 mg extended release oral tablet (20 sources) beta-Adrenergic Gorge Start : 01-24 End: 05-02 take 1 tablet by mouth once daily Metoprolol Succinate 25 mg tablet extended release 24 hr Discontinued 25 mg PO DAILY March 01, 2022 12:00am March 02, 2022 11:08am Multivitamin Adult Oral Tablet (20 sources) Multivitamin Dirk lt Oral Tablet Inactive Multivitamin Dirk lt Oral Tablet Active naproxen sodium 220 mg oral capsule (20 sources) Nonsteroidal Anti-inflammatory Drug Start: 03-03-2022 End: 06-29-2023 take 1 capsule by mouth twice daily as needed for pain Naproxen Sodium (Aleve) 220 mg capsule Discontinued 220 mg PO TWICE A DAY as needed for pain March 03, 2022 12:00am June 29, 2023 9:14am Aleve PRN Inacti ve Aleve PRN Active omega-3 acid ethyl esters (snf) 1000 mg oral capsule (20 sources) take 1 capsule by mouth once daily FISH OIL CONCENTRATE, 1000MG (Oral Capsule) 1 qd for 0 days Refills: 0 Ordered: 29-Apr-2009 STEVEN Bruner Active PreserVision AREDS 2 Oral Capsule (20 sources) take 2 capsules by mouth once daily PreserVision AREDS 2 Oral Capsule two daily Active raloxifene hydrochloride 60 mg oral tablet (20 sources) Estrogen Agonist/Antagonis t Start: 0 End: 1 take 1 tablet by mouth every other day EVISTA, 60MG (Oral Tablet) 1 (one) Tablet qod for 0 days Quantity: 45 {Tablet} Refills: 3 Ordered: 03-Feb-2011 STEVEN Bruner LPN Start : 30-Mar-2010 End : 03-Feb-2011 Inactive Super B complex (20 sources) Super B complex daily Active Systane and or Alaway eye drops (20 sources) take 1 drop(s) into the eye(s) once daily Systane and or [place] eye drops d daily Active thyroid (snf) 60 mg oral tablet (20 sources) Start: [place] THYROID, 60MG (Oral Tablet) uad Tablet 1 alternating with 2 qod for 0 days Quantity: 135 {Tablet} Refills: 3 Ordered: 21-Oct-2009 STEVEN Bruner LPN Start : 04-Mar-2009 Inactive End: 03-24-2008 take 1 mg by mouth once daily THYROID, 120MG (Oral Tab let) Not sure QD (120 MG) End : 24-Mar-2008 Discontinued vitamin b12 1 mg oral tablet (20 sources) Vitamin B12 End: 02-24-2017 take 1 tablet by mouth every week Vitamin B-12 1000 MCG Oral Tablet 1 3 x weekly for 0 days Refills: 0 Ordered: 24-Feb-2017 Salma Russell LPN End : 24-Feb-2017 Discontinued Vitamin B12 Inac tive Vitamin B12 Acti ve Vitamin B Complex Oral Tablet (20 sources) End: 02-24-2017 take 1 tablet by mouth once daily Vitamin B Complex Oral Tablet 1 qd for 0 days Refills: 0 Ordered: 24-Feb-2017 Salma Russell LPN End : 24-Feb-2017 Discontinued dl-alpha tocopheryl acetate 100 unt oral capsule (20 sources) take 1 [IU] by mouth once daily Vitamin E 100 UNIT Oral Capsule daily (100 UNIT) Inactive Problems Active Problems Problem Classification Problem Date Documented Date Episodic/Chronic Administrative/social admission (4 sources) First encounter by subject; Translations: [Persons encountering health services in other specified circumstances] 12-26-2024 Episodic Anxiety disorders (4 sources) Anxiety; Translations: [Anxiety disorder, unspecified] 12-26-2024 Chronic Biliary tract disease (10 sources) Obstruction of biliary tree; 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] 05-25-2023 Chronic Biliary tract disease (20 sources) Common bile duct calculus; Translations: [Calculus of bile duct without cholangitis or cholecystitis without obstruction] 05-13-2023 Episodic Cataract (20 sources) Cataract Conditions associated with dizziness or vertigo (20 sources) Dizziness; Translations: [Dizziness] 08-25-2021 Episodic Comment on above: neg jaun halpike, rev iewed last on 12-04-20 Blood flow screening normal neg jaun halpike, rev iewed last on 12-04-20 Blood flow screening normal, on going dizziness, in OV on 01-07-22 tachycardic and abnormal EKGon beta gorge and doing better, holter normal and carotid good, and CT chronic involutional changes. Conditions associated with dizziness or vertigo (20 sources) Conditions associated with dizziness or vertigo Diseases of mouth; excluding dental (20 sources) Cheilosis; Translations: [Dry lips] Resolved: 2 12-21-2020 Episodic Comment on above: uses lanolin Hydrous Diseases of white blood cells (20 sources) Leukopenia; Translations: [Neutropenia] Resolved: 1 10-03-2018 Chronic Comment on above: Saw Dr. David 2010 wit h neuts at 38.9 now 40.7 but now elevated eosinophils will repeat peripheral blood smear check b12, folic acid, normal Saw Dr. David 03-09-11 chronic leukopenia, to check B12 HOLA he will follow, last one 3.6 WBC better than 2.8, in February 15., Sep 2018 3.4 Stable but abnormal Saw Dr. David 03-09-11 chronic leukopenia, to check B12 HOLA he will follow, last one 3.6 WBC better than 2.8, in February 15., Sep 2018 3.4 Stable but abnormal Saw Dr. David 03-09-11 chronic leukopenia, to check B12 HOLA he will follow, last one 3.6 WBC better than 2.8, in February 15., Sep 2018 3.4, remains stable Stable but abnormal Saw Dr. David 03-09-11 chronic leukopenia, to check B12 HOLA he will follow, last one 3.6 WBC better than 2.8, in February 15., Sep 2018 3.4, remains stablewill repeat December 2020 Disorders of lipid metabolism (20 sources) Hyperlipidemia; Translations: [Hyperlipidemia] 10-03-2018 Chronic Essential hypertension (20 sources) Hypertensive disorder; Translations: [Hypertension] Onset: 5 10-03-2018 Chronic Comment on above: stage I, reviewed ho w[facility] BP charts, from to BP range 126/73 133/84 on low dose norvasc controlled stage I, controlled on low dose norvasc reviewed home BP charts, from to . EKG with rt atrial enlargement, will get echo controlled stage I, controlled on low dose norvasc reviewed home BP charts, from to . EKG with rt atrial enlargement controlled stage I, controlled on low dose norvasc reviewed meticulous home BP charts, from March -Aug 2020, EKG with rt atrial enlargement controlled stage I, controlled on low dose norvasc reviewed meticulous home BP charts, from March -Aug 2020, EKG with rt atrial enlargementHistory of Bp's normal Range 114/69 to 132/79 controlled stage I, controlled on low dose norvasc reviewed meticulous home BP charts, from March -Aug 2020, EKG with rt atrial enlargementHistory of Bp's normal Range 114/69 to 132/79sees Dr. Mele SANTIAGO -reviewed meticulous home BP logs. she is quite stable, no changes today-sees Dr. Mele SANTIAGO. 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 Declines terbenafine. Nutritional deficiencies (20 sources) Vitamin D deficiency; Translations: [Vitamin D insufficiency] Resolved: 1 02-27-2019 Chronic Comment on above: Controlled on D3 con tinue 2000 daily has not been checked in awhile, will make sure not toxicControlled on D3 continue 2000 daily Osteoporosis (20 sources) Osteoporosis; Translations: [Osteoporosis] Onset: 5 10-03-2018 Chronic Comment on above: BD 3-11 6 % improvem ent continue same Controlled on Fosama x weekly BD improvement continue same Other bone disease and musculoskeletal deformities (20 sources) Osteopenia; Translations: [Osteopenia] Resolved: 9 12-06-2012 Episodic Other circulatory disease (20 sources) Elevated blood pressure; Translations: [Elevated blood pressure reading] Resolved: 8 10-03-2018 Episodic Other circulatory disease (15 sources) Elevated blood-pressure reading without diagnosis of hypertension; Translations: [Elevated blood-pressure reading, without diagnosis of hypertension] 03-02-2022 Episodic Other circulatory disease (5 sources) Elevated blood-pressure reading, without diagnosis of hypertension; Translations: [Elevated blood pressure reading without diagnosis of hypertension] Episodic Other connective tissue disease (20 sources) Pain of left hand; Translations: [Hand pain, left] 03-17-2021 Episodic Other ear and sense organ disorders (20 sources) Impacted cerumen; Translations: [Cerumen impaction] Resolved: 2 07-21-2015 Episodic Comment on above: rt Other ear and sense organ disorders (20 sources) Impacted cerumen of bilateral ears; Translations: [Bilateral impacted cerumen] 03-17-2021 Episodic Other endocrine disorders (20 sources) Hypoglycemia; Translations: [Low blood sugar] Resolved: 1 03-01-2019 Chronic Other eye disorders (3 sources) History of cataract extraction; Translations: [Status post cataract extraction] 12-21-2020 Episodic Comment on above: both Dec 03 2020 and Nov 09 2020 Other inflammatory condition of skin (20 sources) Other lichen, not elsewhere classified; Translations: [Other lichen, not elsewhere classified] Resolved: 8 10-03-2018 Episodic Comment on above: lichen sclerosisno c hange no new signs and symptoms Other injuries and conditions due to external causes (20 sources) H/O: fracture; Translations: [Fracture Of Ankle] 10-03-2018 Episodic Other liver diseases (20 sources) Increased bilirubin level; Translations: [Elevated bilirubin] 03-17-2021 Episodic Comment on above: still have gallbladd er -recheck liver profi le this weekstill has gallbladder check a direct and i ndirect bili, all other LFT studies are normal so likley not due to hepatic injury or biliary tract disease. ?hemolysis vs Gilbert syndrome vs genetic? check a direct and i ndirect bili, all other LFT studies are normal so likely not due to hepatic injury or biliary tract disease. 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 no falls.Has seen PT , they recommended possible foot eval/work up to see if it could be related to shoes. Other non-traumatic joint disorders (20 sources) Problem of shoulder; Translations: [Shoulder problem] Resolved: 2 12-15-2021 Episodic Comment on above: left Other non-traumatic joint disorders (1 source) Pain in left hip; Translations: [Pain in left hip] Onset: 5 Episodic Other nutritional; endocrine; and metabolic disorders (20 sources) Decreased body mass index; Translations: [Body mass index [BMI] 19.9 or less, adult] 04-23-2021 Episodic Other nutritional; endocrine; and metabolic disorders (20 sources) Body mass index less than 20; Translations: [Body mass index (BMI) of 19.0-19.9 in adult] Resolved: 2 05-02-2022 Episodic Other screening for suspected conditions (not mental disorders or infectious disease) (8 sources) Increased bilirubin level; Translations: [Elevated bilirubin] 04-07-2020 Chronic Comment on above: still have gallbladd er Other skin disorders (20 sources) Circumscribed scleroderma; 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 Comment on above: controlled Other skin disorders (20 sources) Localized scleroderma; 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 Comment on above: controlled Other skin disorders (20 sources) Actinic keratosis; Translations: [Actinic keratosis] Resolved: 3 12-06-2012 Episodic Other skin disorders (20 sources) Eruption; Translations: [Rash] Resolved: 9 12-06-2012 Episodic Comment on above: etiology?left elbow and rt knee Other upper respiratory infections (20 sources) Upper respiratory infection; Translations: [URI (upper respiratory infection)] 10-24-2018 Episodic Comment on above: likely viral Pulmonary heart disease (15 sources) Pulmonary arterial hypertension; 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] 03-01-2022 Chronic Residual codes; unclassified (20 sources) Body mass index (BMI) 20.0-20.9, adult; Translations: [Body mass index 20-24 - normal] Resolved: 3 04-20-2018 Episodic Residual codes; unclassified (20 sources) Body Mass Index between 19-24, adult; Translations: [Finding of body mass index] Resolved: 7 03-07-2018 Episodic Residual codes; unclassified (20 sources) Postmenopausal state; Translations: [Postmenopausal (Renamed from Postmenopausal status)] 02-27-2019 Episodic Residual codes; unclassified (20 sources) Non-smoker; Translations: [Nonsmoker] 03-17-2021 Episodic Residual codes; unclassified (20 sources) Insomnia; Translations: [Insomnia] 05-02-2022 Episodic Comment on above: try melatonin 3mg at bedtime, take at least 30m prior to sleep. -reviewed sleep hygiene, no caffeine, TV, etc -reviewed sleep hygi teodoro, no caffeine, TV, etc-melatonin not effective, does not have excessive daytime sleepiness so does not wish to try anything elsetried melatonin 3mg qhs -reviewed sleep hygi teodoro, no caffeine, TV, etcstable, no medstried melatonin 3mg qhs-melatonin not effective, does not have excessive daytime sleepiness so does not wish to try anything else -reviewed sleep hygi teodoro, no caffeine, TV, etcstable, no meds. getting bettertried melatonin 3mg qhs-melatonin not effective, does not have excessive daytime sleepiness so does not wish to try anything else Residual codes; unclassified (8 sources) Past history of procedure; Translations: [Other specified postprocedural states] 05-31-2023 Episodic Comment on above: x2 Residual codes; unclassified (2 sources) Other specified postprocedural states; Translations: [Other postprocedural status] 05-31-2023 Episodic Respiratory failure; insufficiency; arrest (adult) (20 sources) Respiratory failure; insufficiency; arrest (adult) Skin and subcutaneous tissue infections (20 sources) Cellulitis and abscess of other specified sites; Translations: [Pyoderma] Resolved: 9 09-09-2015 Episodic Spondylosis; intervertebral disc disorders; other back problems (8 sources) Radiculopathy, lumbar region; Translations: [Thoracic or lumbosacral neuritis or radiculitis, unspecified] Onset: 5 Episodic Sprains and strains (11 sources) Low back strain; Translations: [Strain of muscle, fascia and tendon of lower back, initial encounter] Onset: 5 04-07-2025 Episodic Thyroid disorders (20 sources) Hypothyroidism; Translations: [Hypothyroidism] 10-03-2018 Chronic Comment on above: stay on current synt hroid, was 67 now normal, repeat in February 2018 within range continue med and repeat again Jul 2018 and Mar 2019Not on synthroid for 5 years, result in February 2017 67! controlled stay on c urrent synthroid dose, was 67 now normal, repeat in February 2018 within range continue med and repeat again Jul 2018 normal at 2.2 and Mar 2019Not on synthroid for 5 years, result in February 2017 67! controlled stay on c urrent synthroid dose, was 67 now normal, repeat in February 2018 within range continue med and repeat again Jul 2018 normal at 2.2 and Jun 2019 1.36 Stay on same amtNot on synthroid for 5 years, result in February 2017 67! controlled stay on c urrent synthroid dose, was 67 now normal, repeat in February 2018 within range continue med and repeat again Jul 2018 normal at 2.2 and Jun 2019 1.36 TSH April 4.48, Take one daily and 2 q Wed repeat in 6 weeks.Not on synthroid for 5 years, result in February 2017! repeat labs prior ne xt ov-continue current dose synthroid.Not on synthroid for 5 years, result in February 2017, then normalized w/ meds. April 2022: TSH = 1.51 recent increase in s ynthroid to 2 tabs on sundays, otherwise one tab. rechecking in about 6 weeksNot on synthroid for 5 years, result in February 2017, then normalized w/ meds. April 2022: TSH = 1.51 Unclassified (20 sources) Nonsmoker; Translations: [Non-smoker] 10-03-2018 Unclassified (20 sources) Other lichen, not elsewhere classified (697.8) Unclassified (20 sources) Patient encounter status; Translations: [Breast cancer screening] 03-27-2017 Comment on above: Clear for surgery mo derate risk Surgery on March 08, [address] 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 Unclassified (20 sources) Cerumen impaction (380.4) Unclassified (20 sources) Unclassified (20 sources) Well Woman Exam , Medicare (V76.2) Unclassified (20 sources) Abnormal TSH (794.5) Unclassified (20 sources) BMI 20.0-20.9, adult; Translations: [Body mass index 20-24 - normal] 04-09-2019 Unclassified (20 sources) Vitamin D insufficiency Unclassified (20 sources) BMI between 19-24,adult; Translations: [Finding of body mass index] Resolved: 7 03-07-2018 Unclassified (20 sources) Elevated blood pressure reading Unclassified (20 sources) Cerumen impaction Unclassified (20 sources) Elevated bilirubin Unclassified (20 sources) Encounter for screening mammogram for malignant neoplasm of breast Unclassified (20 sources) Dry lips Unclassified (14 sources) Body mass index [BMI] 19.9 or less, adult Unclassified (11 sources) Shoulder problem Unclassified (4 sources) Body mass index (BMI) of 19.0-19.9 in adult Unclassified (4 sources) M81.0 - Age-related osteoporosis without current pathological fracture,E03.9 - Hypothyroidism, unspecified Viral infection (9 sources) Acute viral disease; Translations: [Viral infection, unspecified] 05-09-2023 Episodic Past or Other Problems Problem Classification Problem Date Documented Date Episodic/Chronic Cardiac dysrhythmias (20 sources) Tachycardia; Translations: [Tachycardia] Onset: 01-06-2025 Resolved: 05-01-2022 01-21-2022 Episodic Coronary atherosclerosis and other heart disease (20 sources) Coronary atherosclerosis and other heart disease Malaise and fatigue (20 sources) Fatigue; Translations: [Other fatigue] Onset: 12-26-2024 03-02-2022 Episodic Nutritional deficiencies (10 sources) Disorder of vitamin D; Translations: [Vitamin D insufficiency] 10-03-2018 Episodic Comment on above: continue 1999 daily Controlled on D3 con tinue 1999 daily Other ear and sense organ disorders (2 sources) Impacted cerumen of bilateral ears; Translations: [Bilateral impacted cerumen] 12-24-2020 Other screening for suspected conditions (not mental disorders or infectious disease) (20 sources) Breast neoplasm screening status; Translations: [Encounter for screening for malignant neoplasm of cervix] Onset: 05-02-2024 Resolved: 10-15-2018 08-30-2017 Episodic Comment on above: refuse colonscopy to ld about colosure. bry snow can stop pap now Basos, get ct abd an d chest had abd and chest CT s in the past, seems to be chronic. I do not see a prior peripheral smear so will get that and a reticulocyte count Residual codes; unclassified (2 sources) Acquired absence of other specified parts of digestive tract; Translations: [Other postprocedural status] Onset: 10-16-2022 05-31-2023 Episodic Unclassified (20 sources) SCREENING MAMMOGRAM NEC (V76.12) Unclassified (20 sources) Deliveries (Parity); Translations: [Deliveries (Parity)] 10-03-2018 Comment on above: 4 Unclassified (20 sources) Pregnancies (); Translations: [Pregnancies ()] 10-03-2018 Comment on above: 4 Unclassified (20 sources) Rash (782.1) Unclassified (20 sources) Immunization Hx: h1n1 10-26-09 (Renamed from h1n1 10-26-09) 12-06-2012 Unclassified (20 sources) Immunization Hx: pneunmonia 08-08-08 (Renamed from pneunmonia 08-08-08) 12-06-2012 Unclassified (20 sources) Immunization Hx: seasonal flu 07-16-09 (Renamed from seasonal flu 07-16-09) 12-06-2012 Unclassified (20 sources) Breast screening Unclassified (20 sources) Pre-operative general physical examination Unclassified (20 sources) Unspecified Diagnosis 10-26-2018 Unclassified (20 sources) Postmenopausal (Renamed from Postmenopausal status) Unclassified (20 sources) Low blood sugar Unclassified (20 sources) Annual Medicare Physical WITH abnormal findings (Renamed from Encounter for general adult medical examination with abnormal findings) Unclassified (18 sources) Cancer cervix screening status; Translations: [Screening for malignant neoplasm of cervix] Resolved: 10-15-2018 10-23-2018 Comment on above: refuse colonscopy to ld about colosure. new guidleines can stop pap now Unclassified (20 sources) Abnormal TSH Unclassified (19 sources) Bilateral impacted cerumen Unclassified (20 sources) Hand pain, left Unclassified (7 sources) Abnormal CBC Unclassified (6 sources) Balance problem Results Test Name Value Interpretation Reference Range Facility Hand Min 3 Viewson Hand Min 3 Views [facility] [address] [place] [address] Hand Min 3 Views MR#: [id number] Acct: [id number] Name: JENA COTA ANN Rep #: [id number] : 1940 F 84 From: Hailey Vinson nd, MD PCP: Dr. Cayla Caicedo MD Status: PRE ER Study: Hand Min 3 Views Date of Exam: 04/09/25 Exam# [id number] Ordering Dr: Constantin,Dhaval P. PROCEDURE: HAND MIN 3 VIEWS 04/09/2025 REASON FOR EXAM: FALL TECHNIQUE: HAND MIN 3 VIEWS COMPARISON: None. FINDINGS: Bones: Dislocation/subluxation of the right 1st MCP joint. Diffuse osseous demineralization. No obvious acute fracture. Joints: Normal alignment. Moderate degenerative changes. Soft tissues: Mild soft tissue swelling. Other: No radiopaque foreign body. RAD/Hand Min 3 Views IMPRESSION: Dislocation/subluxation of the right 1st MCP joint. Correlation with physical examination recommended. Reading Location: [facility] CC: Dr. Cayla Caicedo MD; ED PHYSICIAN PROVIDER Child And Youth Program Assistant: Signed Normal [facility] Lumbar Spine 2 or 3 Viewson 04-09-2025 Lumbar Spine 2 or 3 Views [facility] [address] [place] [address] Lumbar Spine 2 or 3 Views MR#: [id number] Acct: [id number] Name: JENA COTA ANN Rep #: [id number] : 1940 F 84 From: Hailey Vinson nd, MD PCP: Dr. Cayla Caicedo MD Status: REG ER Study: Lumbar Spine 2 or 3 Views Date of Exam: Exam# [id number] Ordering Dr: Ihsan Garcia DO PROCEDURE: LUMBAR SPINE 2 OR 3 VIEWS 04/09/2025 REASON FOR EXAM: PAIN TECHNIQUE: LUMBAR SPINE 2 OR 3 VIEWS COMPARISON: L-spine radiographs 04/07/2025. FINDINGS: Vertebrae: No obvious acute fracture. Mild multilevel vertebral body height loss. Discs: Severe degenerative disc disease, greatest at L4-5. Alignment: Unchanged mild leftward curvature of the lower lumbar spine. Grade 1 spondylolisthesis at L3-4 and L4-5. Other: Diffuse bone demineralization. Vascular calcifications. RAD/Lumbar Spine 2 or 3 Views IMPRESSION: ADVANCED DEGENERATIVE CHANGES OF THE LUMBAR SPINE. Reading Location: [facility] CC: Dr. Cayla Caicedo MD; Ihsan Garcia DO Child And Youth Program Assistant: Signed Normal [facility] HIP, UNI W/ Pelvis 2-3 Views on 04-07-2025 HIP, UNI W/ Pelvis 2-3 Views [facility] [address] [place] [address] HIP, UNI W/ Pelvis 2-3 Views MR#: [id number] Acct: [id number] Name: JENA COTA ANN Rep #: [id number] : 1940 84 From: Ashish Dai MD PCP: Dr. Cayla Caicedo MD Status: REG CLI Study: HIP, UNI W/ Pelvis 2-3 Views Date of Exam: Exam# [id number] Ordering Dr: Thomas Latif PROCEDURE: HIP, UNI W/ PELVIS 2-3 VIEWS 04/07/2025 REASON FOR EXAM: PAIN FROM FALL TECHNIQUE: HIP, UNI W/ PELVIS 2-3 VIEWS COMPARISON: March 03, 2020 FINDINGS: The hip joints appear intact. SI joints are aligned. The sacral foramina appear intact. There is no visible pelvic fracture. Mineralization is normal. Vascular calcifications are visible. RAD/HIP, UNI W/ Pelvis 2-3 Views IMPRESSION: No fracture or dislocation is identified. Reading Location: [facility] CC: Dr. Cayla Caiceod MD; MAIKEL Hamilton Child And Youth Program Assistant: Signed Normal [facility] Lumbar Spine 2 or 3 Viewson 04-07-2025 Lumbar Spine 2 or 3 Views [facility] [address] [place], [place] [id number] Lumbar Spine 2 or 3 Views MR#: [id number] Acct: [id number] Name: JENA COTA ANN Rep #: [id number] : 1940 F 84 From: Ashish Dai MD PCP: Dr. Cayla Caicedo MD Status: REG CLI Study: Lumbar Spine 2 or 3 Views Date of Exam: Exam# [id number] Ordering Dr: Thomsa Latif PROCEDURE: LUMBAR SPINE 2 OR 3 VIEWS 04/07/2025 REASON FOR EXAM: PAIN FROM FALL TECHNIQUE: LUMBAR SPINE 2 OR 3 VIEWS COMPARISON: March 03, 2022 FINDINGS: There is levoscoliosis of the lumbar region with Grove angle = 12 degrees from L3-S1, apex L4. There is grade 1 spondylolisthesis at L2-3, 0.2 cm. There is grade 1 spondylolisthesis at L3-4, 0.2 cm. There is grade 1 spondylolisthesis at L4-5, 0.6 cm. There is loss of disc height which is most severe from L4-S1. There is severe facet sclerosis. Osteopenia is noted. Vascular calcifications are present. RAD/Lumbar Spine 2 or 3 Views IMPRESSION: There is levoscoliosis of the lumbar region with Grove angle = 12 degrees from L3-S1, apex L4. There is grade 1 spondylolisthesis at L2-3, 0.2 cm. There is grade 1 spondylolisthesis at L3-4, 0.2 cm. There is grade 1 spondylolisthesis at L4-5, 0.6 cm. There is loss of disc height which is most severe from L4-S1. Findings are similar to the prior. Reading Location: [facility] CC: Dr. Cayla Caicedo MD; MAIKEL Hamilton Child And Youth Program Assistant: Signed Normal [facility] Visit Reporton 0 04-07-2025 Urgent Care Visit Report [facility] [address], [address] [place] [address] OFFICE VISIT Date of Service: 04/07/25 MR#: [id number] Acct: [id number] Name: JENA COTA Rep #: [id number] : 1940 Provider: MAIKEL Hamilton Age/Sex: 84/F Location: [facility] Status: Signed Intake Vital Signs 03/06/25 08:29 04/07/25 11:37 Height 5 ft 3 in 5 ft 3 in Weight: 112 lb 8 oz 112 lb BMI 19.9 19.8 BP 151/72 H Blood Pressure Location Rt brachial Position Sitting Respiration 16 Pulse 90 79 Pulse Source Monitor NIBP Temp 98.3 F Temp Source Oral Pulse Oximetry (%) 98 94 Intake Visit Reasons: L SIDE PELVIS/LEG PAIN FROM LIGHT FALL Chief Complaint: Pelvis Pain Basic Acoustic Analyst Required: No Is patient in pain?: Yes Allergies Sulfa (Sulfonamide Antibiotics) Allergy (Verified 03/06/25 08:31) UNKNOWN Is last menstrual period known: No Post menopausal: No Patient : No Have you fallen in the past year?: No Nurse's Note: Pelvis pain from fall 1 week ago. Has been in pain since falling backward onto bottom [facility] Medical History (Updated 04/07/25 @ 13:03 by Thomas KO, MAIKEL) Strain of left hip Lumbar radiculopathy Lumbar strain Hypertension Stroke/cerebrovascular accident Secondary pulmonary arterial hypertension Mitral valve annular calcification Circumscribed scleroderma Osteoporosis Hypothyroidism Essential hypertension Surgical History History of ankle surgery S/P ERCP S/P laparoscopic cholecystectomy ( 04/2023) History of cataract surgery Family History Father Cancer bladder Mother Hypertension Heart disease CHF COPD (chronic obstructive pulmonary disease) Anemia Arthritis Age related osteoporosis Brother Cancer pancreatic Brother Pulmonary embolism Skin cancer Social History adopted: No household members: none number of children: 4 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 pets and animals: No history of recent travel: No sexually active: No Smoking Status: Never smoker alcohol intake: never substance use type: does not use well-balanced diet: about half the time caffeine: Yes (1-2) Type: carbonated beverages, coffee and tea eating out: rarely or never what type of physical activity do you participate in: walking frequency: daily duration: 45-60 minutes/day seatbelt use: always do you feel safe at home: Yes HPI HPI Chief Complaint: Pelvis Pain Details: JENA COTA, is a 84 F who presents to the office today for initial evaluation status post fall onto buttocks approximate week ago with low back and left hip pain ever since, no initiating she has had intermittent radicular complaints to BLE for several years now. No caudal complaints upon questioning. No omyg-wsm-pvnbvoy medications taken to assist. No other associated symptoms and no other alleviating/aggravating factors. ROS Const Constitutional: No other (As above) Exam Const General: cooperative, healthy appearing and no acute distress Orientation: alert and awake Resp Effort Inspection: normal respiratory effort and able to speak in complete sentences Cardio Rate: regular rate Pulses: radial pulses present GI Inspection: normal to inspection Musc Thoracic/Lumbar Spine: thoracic and lumbar spine normal to inspection, straight leg raise negative bilaterally, pain with thoraco-lumbar ROM with forward flexion, paraspinal tenderness bilaterally in the mid lumbar and in the lower lumbar, no thoracic spinal tenderness and no lumbar spinal tenderness Skin General: no rashes or lesions noted Neuro General: patient alert and patient awake Cognition: normal cognition Speech: speech normal Sensory Exam: no sensory deficits noted (Except BLE posterior thighs) Extrem General: normal to inspection Psych Appearance: grossly normal Mental Status: mental status grossly normal Mood: congruent mood Affect: normal affect Speech and Movement: speech and movement normal Attitude: cooperative Coding Level of Care Code Off vis,new,level 4 Diagnoses Lumbar strain S39.012A Lumbar radiculopathy M54.16 Strain of left hip S76.012A Assessment and Plan Assessment and Plan (1) Lumbar strain: Status: Acute (2) Lumbar radiculopathy: Status: Acute (3) Strain of left hip: Status: Acute Plan: Lumbar and left hip/pelvic radiographs reveal no acute osseous pathology per my review though degenerative disc disease appreciated L3-4 L4-5 and L5-S1 with spondylolisthesis to all per my review, pending radiologist interpretation time patient discharge. Patient r (more content not included)... Normal [facility] Endocrinology Visit Reporton 03-06-2025 Endocrinology Visit Report [facility] [address] [place] [address] OFFICE VISIT Date of Service: 03/06/25 MR#: [id number] Acct: [id number] Name: JENA COTA ANN Rep #: [id number] : 1940 Provider: Shikha Mullen Age/Sex: 84/F Location: [facility] [place] Status: Signed Intake Vital Signs 12/26/24 08:46 03/06/25 08:29 Height 5 ft 3 in 5 ft 3 in Weight: 115 lb 6 oz 112 lb 8 oz BMI 20.4 19.9 BP 128/80 H 151/72 H Blood Pressure Location Rt brachial Rt brachial Position Sitting Sitting Respiration 16 Pulse 82 90 Pulse Source Monitor Monitor Temp 97.2 F L Temp Source Temporal Pulse Oximetry (%) 98 98 Oxygen Delivery Method room air Intake Visit Reasons: Osteoporosis Chief Complaint: post op Is patient in pain?: No Allergies Sulfa (Sulfonamide Antibiotics) Allergy (Verified 03/06/25 08:31) UNKNOWN Medications ???Medication ???Instructions ???Recorded ???Confirmed ???Type cholecalciferol (vitamin D3) 50 50 mcg PO DAILY 03/01/22 03/06/25 History mcg (2,000 unit) capsule multivitamin 1 tab PO DAILY SUPPLEMENT 03/01/22 03/06/25 History vitamin B complex 1 tab PO DAILY SUPPLEMENT 03/01/22 03/06/25 History vitamins A,C,M-rbql-cdvsqr 4,296 1 cap PO BID EYE HEALTH 03/01/22 0 03/06/25 History mcg-226 mg-90 mg capsule (PreserVision AREDS) mazpntr-ncnbiyfkvcaqo-r affeine 250 1 tab PO ONCE PRN pain 03/03/22 03/06/25 History mg-250 mg-65 mg tablet (Excedrin Extra Strength) propylene glycol 0.6 % eye drops 1 drp ophthalmic (eye) DAILY PRN 0 03/03/22 03/06/25 History (Systane Balance) dry eye(s) calcium 500 mg (as 1 tab PO DAILY SUPPLEMENT 06/01/22 03/06/25 History carbonate)-vitamin D3 10 mcg (400 unit) tablet (Calcium 500 + D) omega-3 fatty acids 1,000 mg PO DAILY SUPPLEMENT 05/1303/06/25 History sertraline 50 mg tablet 50 mg PO QDAY 10/03/24 03/06/25 Hi story alendronate 70 mg tablet 70 mg PO QWEEK OSTEOPOROSIS #12 03/06/25 Rx tabs levothyroxine 112 mcg tablet 112 mcg PO DAILY Hypothyroidism 03/06/25 Rx #90 tabs Have you fallen in the past year?: No PFSH Medical History (Updated 03/25/25 @ 15:[address] Robert Funk MD) Hypertension Stroke/cerebrovascular accident Secondary pulmonary arterial hypertension Mitral valve annular calcification Circumscribed scleroderma Osteoporosis Hypothyroidism Essential hypertension Surgical History History of ankle surgery S/P ERCP S/P laparoscopic cholecystectomy ( 04/2023) History of cataract surgery Family History Father Cancer bladder Mother Hypertension Heart disease CHF COPD (chronic obstructive pulmonary disease) Anemia Arthritis Age related osteoporosis Brother Cancer pancreatic Brother Pulmonary embolism Skin cancer Social History adopted: No household members: none number of children: 4 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 Lumbar Spine (L1-L4): g/cm2 (0.947) / T-score (-0.9) / Z-score (2.0) Findings are suggestive of normal bone density with a low fracture risk. Left Femur Total: g/cm2 (0.535) / T-score (-3.3) / Z-score (-1.0) Left Femoral Neck: g/cm2 (0.478) / T-score (-3.3) / Z-score (-0.8) Right Femur Total: g/cm2 (0.480) / T-score (-3.8) / Z-score (-1.5) Right Femoral Neck: g/cm2 (0.410) / T-score (-4.0) / Z-score (-1.4) The T-Scores on the most recent prior examination were: Lumbar Spine (L1-L4): There has been improvement of bone density since the previous examination. Left Femur Total: which represents an improvement of 3.5%. Right Femur Total: which represents a worsening of 2.3%. She was started on Alendronate in December. She is taking it properly and she is tolerating it well. Vitamin D level is 70 Calcium is 9.6 She is on levothyroxine. TSH is 1.5 Current Symptoms: denies heartburn, nausea or dysphagia Risk Factors: denies tobacco use, denies alcohol 2 drinks per day or more, denies prior fracture, den (more content not included)... Normal [facility] Comprehensive Panelon ANTI-DNA (DS)AB <1 Normal 0-9 [facility] Comment on above: Result Comment: Nega tive <5 Equivocal 5 - 9 Positive >9 Performed By: #### L 501.9520, L506.1001, L505.7010, L500.4050, L503.6030, L7000.5300, L4600.0100, L100.0100, L3100.5440, L503.0106 ####[facility] [address] [place], [address] ANTISCLERODERM <0.2 Normal 0.0-0.9 [facility] Comment on above: Performed By: #### L 501.9520, L506.1001, L505.7010, L500.4050, L503.6030, L7000.5300, L4600.0100, L100.0100, L3100.5440, L503.0106 ####[facility] [address] [place], [address] CCP IgG Antibodieson 025 CCP IgG Ab. 9 units Normal 0-19 [facility] Comment on above: Result Comment: Nega tive <20 Weak positive 20 - 39 Moderate positive 40 - 59 Strong positive >59 Performed at: [facility] [id number] L[place] Ironer: Lul Hassan PhD, Phone: [phone] Performed By: #### L 501.9520, L506.1001, L505.7010, L500.4050, L503.6030, L7000.5300, L4600.0100, L100.0100, L3100.5440, L503.0106 ####[facility] [address] [place], [address] Lyme Screen W/Reflex WBon LYME SCREEN Ab Negative Normal Negative [facility] Comment on above: Result Comment: Lyme antibodies not detected. Reflex testing is not indicated. No laboratory evidence of infection with B. burgdorferi (Lyme disease). Negative results may occur in patients recently infected (less than or equal to 14 days) with B. burgdorferi. If recent infection is suspected, repeat testing on a new sample collected in 7 to 14 days is recommended. Performed By: #### L 501.9520, L506.1001, L505.7010, L500.4050, L503.6030, L7000.5300, L4600.0100, L100.0100, L3100.5440, L503.0106 ####[facility] [address] [place], [address] Absolute lymphocyte countOrd ered By: Cayla Caicedo on 12-26-2024 Lymphocytes Auto (Unsp spec) [#/Vol] 0.84 10*3/uL 0.83-4.51 [facility] Absolute neutrophil countOrd ered By: Cayla Caicedo on 12-26-2024 Neutrophils (Bld) [#/Vol] 3.0 10*3/uL 2.0-7.7 [facility] Anion gap in Serum or Plasma Ordered By: Cayla Caicedo on 12-26-2024 Anion gap [Moles/Vol] 11 mmol/L 5-15 [facility] Automated lymphocyte count a s percentage of total leukocytesOrdered By: Cayla Caicedo on 12-26-2024 Lymphocytes/100 WBC Auto (Unsp spec) 15.0 % Low 19-41 [facility] BUN/creatinine ratioOrdered By: Cayla Caicedo on 12-26-2024 Urea nitrogen/Creatinine [Mass ratio] 22.0 mg/mg High 10-20 [facility] Basophil percentageOrdered B y: Cayla Caciedo on 12-26-2024 Basophils/100 WBC (Bld) 0.9 % 0-1 [facility] Bilirubin, totalOrdered By: Cayla Caicedo on 12-26-2024 Bilirubin [Mass/Vol] 0.61 mg/dL 0.00-1.30 [facility] Borrelia burgdorferi (Lyme d isease) total antibody assay with reflex by Western blotOrdered By: Cayla Caicedo on 12-26-2024 Lyme Disease Total Antibody Negative Negative [facility] Comment on above: Lyme antibodies not detected. Reflex testing is notindicated.No laboratory evidence of infection with B. burgdorferi(Lyme disease). Negative results may occur in patientsrecently infected (less than or equal to 14 days) with B.burgdorferi. If recent infection is suspected, repeattesting on a new sample collected in 7 to 14 days isrecommended. CBC W/Diff, Automatedon 12-14 Absolute Lymph 0.84 X10 3/uL Normal 0.83-4.51 [facility] Comment on above: Performed By: #### L 501.9520, L506.1001, L505.7010, L500.4050, L503.6030, L7000.5300, L4600.0100, L100.0100, L3100.5440, L503.0106 ####[facility] [address] [place], [address] Absolute Neut 3.0 X10 3/uL Normal 2.0-7.7 [facility] Comment on above: Performed By: #### L 501.9520, L506.1001, L505.7010, L500.4050, L503.6030, L7000.5300, L4600.0100, L100.0100, L3100.5440, L503.0106 ####[facility] [address] [place], [address] Basophils/100 WBC (Bld) 0.9 % Normal 0-1 [facility] Comment on above: Performed By: #### L 501.9520, L506.1001, L505.7010, L500.4050, L503.6030, L7000.5300, L4600.0100, L100.0100, L3100.5440, L503.0106 ####[facility] [address] [place], [address] Eosinophils/100 WBC (Bld) 20.0 % High 0-5 [facility] Comment on above: Performed By: #### L 501.9520, L506.1001, L505.7010, L500.4050, L503.6030, L7000.5300, L4600.0100, L100.0100, L3100.5440, L503.0106 ####[facility] [address] [place], [address] Erythrocyte distribution width (RBC) [Ratio] 12.2 % Normal 11.6-14.6 [facility] Comment on above: Performed By: #### L 501.9520, L506.1001, L505.7010, L500.4050, L503.6030, L7000.5300, L4600.0100, L100.0100, L3100.5440, L503.0106 ####[facility] [address] [place], [place], [phone] Hematocrit (Bld) [Volume fraction] 37.0 % Normal 37-47 [facility] Comment on above: Performed By: #### L 501.9520, L506.1001, L505.7010, L500.4050, L503.6030, L7000.5300, L4600.0100, L100.0100, L3100.5440, L503.0106 ####[facility] [address] [place], [address] Hemoglobin (Bld) [Mass/Vol] 12.5 g/dL Normal 12.0-15.0 [facility] Comment on above: Performed By: #### L 501.9520, L506.1001, L505.7010, L500.4050, L503.6030, L7000.5300, L4600.0100, L100.0100, L3100.5440, L503.0106 ####[facility] [address] [place], [address] IG% 0.200 Normal 0.0-0.9 [facility] Comment on above: Result Comment: IG% - Immature Granulocytes (promyelocytes, myelocytes and metamyelocytes) > 1% indicates that a LEFT SHIFT is Present. Performed By: #### L 501.9520, L506.1001, L505.7010, L500.4050, L503.6030, L7000.5300, L4600.0100, L100.0100, L3100.5440, L503.0106 ####[facility] [address] [place], [place], [phone] Lymphocytes/100 WBC (Bld) 15.0 % Low 19-41 [facility] Comment on above: Performed By: #### L 501.9520, L506.1001, L505.7010, L500.4050, L503.6030, L7000.5300, L4600.0100, L100.0100, L3100.5440, L503.0106 ####[facility] [address] [facility] [place], [place], [id number] MCH (RBC) [Entitic mass] 31.9 pg Normal 27.0-32.0 [facility] Comment on above: Performed By: #### L 501.9520, L506.1001, L505.7010, L500.4050, L503.6030, L7000.5300, L4600.0100, L100.0100, L3100.5440, L503.0106 ####[facility] [address] [place], [place], [id number] MCHC (RBC) [Mass/Vol] 33.8 g/dL Normal 32-36 [facility] Comment on above: Performed By: #### L 501.9520, L506.1001, L505.7010, L500.4050, L503.6030, L7000.5300, L4600.0100, L100.0100, L3100.5440, L503.0106 ####[facility] [address] [place], [address] MCV (RBC) [Entitic vol] 94.4 fL Normal 81-99 [facility] Comment on above: Performed By: #### L 501.9520, L506.1001, L505.7010, L500.4050, L503.6030, L7000.5300, L4600.0100, L100.0100, L3100.5440, L503.0106 ####[facility] [address] [place], [address] Monocytes/100 WBC (Bld) 10.5 % High 0-10 [facility] Comment on above: Performed By: #### L 501.9520, L506.1001, L505.7010, L500.4050, L503.6030, L7000.5300, L4600.0100, L100.0100, L3100.5440, L503.0106 ####[facility] [address] [place] [place], [address] Neutrophils/100 WBC (Bld) 53.4 % Normal 47-70 [facility] Comment on above: Performed By: #### L 501.9520, L506.1001, L505.7010, L500.4050, L503.6030, L7000.5300, L4600.0100, L100.0100, L3100.5440, L503.0106 ####[facility] [address] [place], [address] Nucleated RBC (Bld) [#/Vol] 0 10*3/uL Normal 0-5 [facility] Comment on above: Performed By: #### L 501.9520, L506.1001, L505.7010, L500.4050, L503.6030, L7000.5300, L4600.0100, L100.0100, L3100.5440, L503.0106 ####[facility] [address] [place], [address] Platelet mean volume (Bld) [Entitic vol] 10.8 fL Normal 6.2-12.0 [facility] Comment on above: Performed By: #### L 501.9520, L506.1001, L505.7010, L500.4050, L503.6030, L7000.5300, L4600.0100, L100.0100, L3100.5440, L503.0106 ####[facility] [address] [place], [address] Platelets (Bld) [#/Vol] 291 10*3/uL Normal 150-450 [facility] Comment on above: Performed By: #### L 501.9520, L506.1001, L505.7010, L500.4050, L503.6030, L7000.5300, L4600.0100, L100.0100, L3100.5440, L503.0106 ####[facility] [address] [place], [address] RBC (Bld) [#/Vol] 3.92 10*6/uL Low 4.2-5.4 [facility] Comment on above: Performed By: #### L 501.9520, L506.1001, L505.7010, L500.4050, L503.6030, L7000.5300, L4600.0100, L100.0100, L3100.5440, L503.0106 ####[facility] [address] [place], [address] RDW SD 42.6 fl Normal 35.1-43.9 [facility] Comment on above: Performed By: #### L 501.9520, L506.1001, L505.7010, L500.4050, L503.6030, L7000.5300, L4600.0100, L100.0100, L3100.5440, L503.0106 ####[facility] [address] [facility] [address] [place], [place], [id number] WBC (Bld) [#/Vol] 5.6 10*3/uL Normal 4.4-11.0 [facility] Comment on above: Performed By: #### L 501.9520, L506.1001, L505.7010, L500.4050, L503.6030, L7000.5300, L4600.0100, L100.0100, L3100.5440, L503.0106 ####[facility] [address] [facility] [address] [place], [place], [id number] Calculated total iron bindin g capacityOrdered By: Cayla Caicedo on 12-26-2024 Total Iron Binding Capacity 312 ug/dL 250-450 [facility] Carbon dioxide, total [Moles /volume] in Central venous bloodOrdered By: Cayla Caicedo on 12-26-2024 CO2 [Moles/Vol] 25.1 mmol/L 21.0-32.0 [facility] Centromere B antibody assayO rdered By: Cayla Caicedo on 12-26-2024 Centromere B Antibody <0.2 AI 0.0-0.9 [facility] Comment on above: Previous reported re sult: TNP AIEdited by: REBECCA on 12/27/24:1109 AMENDED REPORT 12/27/24 1109 ANTI-CENT B previously reported as: Test not performed Chloride assayOrdered By: Jared Caicedo on 12-26-2024 Chloride [Moles/Vol] 102 mmol/L 98-108 [facility] Chromatin antibody assayOrde red By: Cayla Caicedo on 12-26-2024 Antichromatin Antibodies <0.2 AI 0.0-0.9 [facility] Comment on above: Previous reported re sult: TNP AIEdited by: REBECCA on 12/27/24:1109 AMENDED REPORT 12/27/24 1109 ANTICHROMATIN previously reported as: Test not performed Comprehensive Metabolic Prof ilon 12-26-2024 Albumin [Mass/Vol] 4.1 g/dL Normal 3.4-4.8 [facility] Comment on above: Performed By: #### L 501.9520, L506.1001, L505.7010, L500.4050, L503.6030, L7000.5300, L4600.0100, L100.0100, L3100.5440, L503.0106 ####[facility] [address] [place], [address] Albumin/Globulin [Mass ratio] 1.5 {ratio} Normal 0.9-2.4 [facility] Comment on above: Performed By: #### L 501.9520, L506.1001, L505.7010, L500.4050, L503.6030, L7000.5300, L4600.0100, L100.0100, L3100.5440, L503.0106 ####[facility] [address] [place], [address] ALK PHOS 102 U/L Normal 35-104 [facility] Comment on above: Performed By: #### L 501.9520, L506.1001, L505.7010, L500.4050, L503.6030, L7000.5300, L4600.0100, L100.0100, L3100.5440, L503.0106 ####[facility] [address] [place], [address] ALT [Catalytic activity/Vol] 27 U/L Normal <=34 [facility] Comment on above: Performed By: #### L 501.9520, L506.1001, L505.7010, L500.4050, L503.6030, L7000.5300, L4600.0100, L100.0100, L3100.5440, L503.0106 ####[facility] [address] [place], [address] AST [Catalytic activity/Vol] 35 U/L High <=31 [facility] Comment on above: Performed By: #### L 501.9520, L506.1001, L505.7010, L500.4050, L503.6030, L7000.5300, L4600.0100, L100.0100, L3100.5440, L503.0106 ####[facility] [address] [place], [address] Bilirubin [Mass/Vol] 0.61 mg/dL Normal 0.00-1.30 [facility] Comment on above: Performed By: #### L 501.9520, L506.1001, L505.7010, L500.4050, L503.6030, L7000.5300, L4600.0100, L100.0100, L3100.5440, L503.0106 ####[facility] [address] [place], [place], [id number](257) BUN/CRE 22.0 RATIO High 10-20 [facility] Comment on above: Performed By: #### L 501.9520, L506.1001, L505.7010, L500.4050, L503.6030, L7000.5300, L4600.0100, L100.0100, L3100.5440, L503.0106 ####[facility] [address] [place], [address] Calcium [Mass/Vol] 9.6 mg/dL Normal 7.6-11.0 [facility] Comment on above: Performed By: #### L 501.9520, L506.1001, L505.7010, L500.4050, L503.6030, L7000.5300, L4600.0100, L100.0100, L3100.5440, L503.0106 ####[facility] [address] [place], [place], [id number] Chloride [Moles/Vol] 102 mmol/L Normal 98-108 [facility] Comment on above: Performed By: #### L 501.9520, L506.1001, L505.7010, L500.4050, L503.6030, L7000.5300, L4600.0100, L100.0100, L3100.5440, L503.0106 ####[facility] [address] [place], [place], [id number] CO2 [Moles/Vol] 25.1 mmol/L Normal 21.0-32.0 [facility] Comment on above: Performed By: #### L 501.9520, L506.1001, L505.7010, L500.4050, L503.6030, L7000.5300, L4600.0100, L100.0100, L3100.5440, L503.0106 ####[facility] [address] [place], [place], [id number] Creatinine [Mass/Vol] 0.72 mg/dL Normal 0.70-1.20 [facility] Comment on above: Performed By: #### L 501.9520, L506.1001, L505.7010, L500.4050, L503.6030, L7000.5300, L4600.0100, L100.0100, L3100.5440, L503.0106 ####[facility] [address] [place], [place], [id number] GAP 11 Normal 5-15 [facility] Comment on above: Performed By: #### L 501.9520, L506.1001, L505.7010, L500.4050, L503.6030, L7000.5300, L4600.0100, L100.0100, L3100.5440, L503.0106 ####[facility] [address] [place], [address] GFR/1.73 sq M.predicted among non-blacks MDRD (S/P/Bld) [Vol rate/Area] 82 mL/min/{1.73_m2} Normal >60 [facility] Comment on above: Result Comment: mL/m in/1.73m2 CKD-EPI Creatinine Equation (2020) Performed By: #### L 501.9520, L506.1001, L505.7010, L500.4050, L503.6030, L7000.5300, L4600.0100, L100.0100, L3100.5440, L503.0106 ####[facility] [address] [place], [address] Globulin (S) [Mass/Vol] 2.8 g/dL Normal 2.2-4.2 [facility] Comment on above: Performed By: #### L 501.9520, L506.1001, L505.7010, L500.4050, L503.6030, L7000.5300, L4600.0100, L100.0100, L3100.5440, L503.0106 ####[facility] [address] [place], [address] Glucose [Mass/Vol] 89 mg/dL Normal 70-99 [facility] Comment on above: Performed By: #### L 501.9520, L506.1001, L505.7010, L500.4050, L503.6030, L7000.5300, L4600.0100, L100.0100, L3100.5440, L503.0106 ####[facility] [address] [place], [address] Potassium [Moles/Vol] 4.7 mmol/L Normal 3.3-5.1 [facility] Comment on above: Performed By: #### L 501.9520, L506.1001, L505.7010, L500.4050, L503.6030, L7000.5300, L4600.0100, L100.0100, L3100.5440, L503.0106 ####[facility] [address] [place], [place], [id number] Sodium [Moles/Vol] 138 mmol/L Normal 133-145 [facility] Comment on above: Performed By: #### L 501.9520, L506.1001, L505.7010, L500.4050, L503.6030, L7000.5300, L4600.0100, L100.0100, L3100.5440, L503.0106 ####[facility] [address] [place], [address] T PROT 6.9 g/dL Normal 5.9-8.4 [facility] Comment on above: Performed By: #### L 501.9520, L506.1001, L505.7010, L500.4050, L503.6030, L7000.5300, L4600.0100, L100.0100, L3100.5440, L503.0106 ####[facility] [address] [place], [address] Urea nitrogen [Mass/Vol] 16 mg/dL Normal 4-19 [facility] Comment on above: Performed By: #### L 501.9520, L506.1001, L505.7010, L500.4050, L503.6030, L7000.5300, L4600.0100, L100.0100, L3100.5440, L503.0106 ####[facility] [address] [place], [address] Cyclic citrullinated peptide IgG QnOrdered By: Cayla Caicedo on 12-26-2024 Cyclic Citrullinated Peptide IgG Ab 9 units 0-19 [facility] Comment on above: Negative <20 Weak po sitive 20 - 39 Moderate positive 40 - 59 Strong positive >59Performed at: [facility] [id number] Director: Lul Hassan PhD, Phone: [phone] DNA double strand Ab Qn (S)O rdered By: Cayla Caicedo on 12-26-2024 Anti-Double Strand DNA Antibody <1 IU/mL 0-9 [facility] Comment on above: Negative <5 Equivoca l 5 - 9 Positive >9 Eosinophil percentageOrdered By: Cayla Caicedo on 12-26-2024 Eosinophils/100 WBC (Bld) 20.0 % High 0-5 [facility] Erythrocyte distribution wid th ratioOrdered By: Cayla Caicedo on 12-26-2024 Erythrocyte distribution width (RBC) [Ratio] 12.2 % 11.6-14.6 [facility] Erythrocyte distribution wid th standard deviationOrdered By: Cayla Caicedo on 12-26-2024 Erythrocyte distribution width (RBC) [Entitic vol] 42.6 fL 35.1-43.9 [facility] Erythrocyte distribution width (RBC) [Ratio] 42.6 fl 35.1-43.9 [facility] GFR/1.73 sq M.predicted stella g non-blacks MDRD (S/P/Bld) [Vol rate/Area]Ordered By: Cayla Caicedo on 12-26-2024 Estimated GFR (MDRD) Non-Af Amer 82 >60 [facility] Comment on above: mL/min/1.73m2 CKD-EP I Creatinine Equation (2020) Glomerular filtration rate ( GFR) estimation/1.73 sq m using serum, plasma, or whole bOrdered By: Cayla Caicedo on 12-26-2024 GFR/1.73 sq M.predicted among non-blacks MDRD (S/P/Bld) [Vol rate/Area] 82 mL/min/{1.73_m2} >60 [facility] Comment on above: mL/min/1.73m2 CKD-EP I Creatinine Equation (2020) Hematocrit Auto (Bld) [Volum e fraction]Ordered By: Cayla Caicedo on 12-26-2024 Hematocrit (Bld) [Volume fraction] 37.0 % 37-47 [facility] Hemoglobin measurementOrdere d By: Cayla Caicedo on 12-26-2024 Hemoglobin (Bld) [Mass/Vol] 12.5 g/dL 12.0-15.0 [facility] Immature granulocytes/100 WB C Auto (Bld)Ordered By: Cayla Caicedo on 12-26-2024 Immature granulocytes/100 WBC (Bld) 0.200 % 0.0-0.9 [facility] Comment on above: IG% - Immature Granu locytes (promyelocytes, myelocytes and metamyelocytes) > 1% indicates that a LEFT SHIFT is Present. Iron (Unsp spec) [Mass/Mass] Ordered By: Cayla Caicedo on 12-26-2024 Iron [Mass/Vol] 71 ug/dL 50-170 [facility] Iron measurement (mass/mass) Ordered By: Cayla Caicedo on 12-26-2024 Iron (Unsp spec) [Mass/Mass] 71 ug/dL 50-170 [facility] Iron saturation [Mass fracti on]Ordered By: Cayla Caicedo on 12-26-2024 Iron Saturation 22.8 % 13-59 [facility] Comment on above: Previous reported re sult: 23.0 %Edited by: FARHANA on 12/26/24:1550 AMENDED REPORT 12/26/24 1550 IRON SATURATION previously reported as: 23.0 % Iron+Iron Binding Capacityon 12-26-2024 Iron [Mass/Vol] 71 ug/dL Normal 50-170 [facility] Comment on above: Performed By: #### L 501.9520, L506.1001, L505.7010, L500.4050, L503.6030, L7000.5300, L4600.0100, L100.0100, L3100.5440, L503.0106 ####[facility] [address] [place], [place], [id number] UIBC 241 ug/dL Normal 228-428 [facility] Comment on above: Performed By: #### L 501.9520, L506.1001, L505.7010, L500.4050, L503.6030, L7000.5300, L4600.0100, L100.0100, L3100.5440, L503.0106 ####[facility] [address] [place], [place], [address] Jami-1 antibody assayOrdered B y: Cayla Caicedo on 12-26-2024 JAMI-1 Antibody <0.2 AI 0.0-0.9 [facility] Comment on above: Previous reported re sult: TNP AIEdited by: REBECCA on 12/27/24:1109 AMENDED REPORT 12/27/24 1109 ANTI-JAMI previously reported as: Test not performed L503.0106on 12-26-2024 Cobalamin (Vitamin B12) [Mass/Vol] 1248 pg/mL High 180-914 [facility] Comment on above: Performed By: #### L 501.9520, L506.1001, L505.7010, L500.4050, L503.6030, L7000.5300, L4600.0100, L100.0100, L3100.5440, L503.0106 ####[facility] [address] [place], [address] L506.1001on 12-26-2024 Vitamin D 25-OH 70.6 ng/mL Normal 30-100 [facility] Comment on above: Result Comment: Shaylee min D Status Deficiency: <20 ng/mL (50nmol/L) Insufficiency: 20-30 ng/mL (50-75 nmol/L) Sufficiency: 30-100 ng/mL (75-250 nmol/L) Toxicity: >100 ng/mL (>250 nmol/L) Performed By: #### L 501.9520, L506.1001, L505.7010, L500.4050, L503.6030, L7000.5300, L4600.0100, L100.0100, L3100.5440, L503.0106 ####[facility] [address] [place], [place], [address] Laboratory - Chemistry and C hemistry - challengeOrdered By: Cayla Caicedo on 12-26-2024 AST [Catalytic activity/Vol] 35 U/L High <32 [facility] Lymphocytes Auto (Unsp spec) [#/Vol]Ordered By: Cayla Caicedo on 12-26-2024 Lymphocytes (Bld) [#/Vol] 0.84 10*3/uL 0.83-4.51 [facility] Lymphocytes/100 WBC Auto (Un sp spec)Ordered By: Cayla Caicedo on 12-26-2024 Lymphocytes/100 WBC (Bld) 15.0 % Low 19-41 [facility] MCV (mean corpuscular volume ) determinationOrdered By: Cayla Caicedo on 12-26-2024 MCV (RBC) [Entitic vol] 94.4 fL 81-99 [facility] Mean corpuscular hemoglobin (MCH) determinationOrdered By: Cayla Caicedo on 12-26-2024 MCH (RBC) [Entitic mass] 31.9 pg 27.0-32.0 [facility] Mean corpuscular hemoglobin concentration (MCHC) determinationOrdered By: Cayla Caicedo on 12-26-2024 MCHC (RBC) [Mass/Vol] 33.8 g/dL 32-36 [facility] Mean platelet volume determi nationOrdered By: Cayla Caicedo on 12-26-2024 Platelet mean volume (Bld) [Entitic vol] 10.8 fL 6.2-12.0 [facility] Monocyte percentageOrdered B y: Cayla Caicedo on 12-26-2024 Monocytes/100 WBC (Bld) 10.5 % High 0-10 [facility] Neutrophil percentageOrdered By: Cayla Caicedo on 12-26-2024 Neutrophils/100 WBC (Bld) 53.4 % 47-70 [facility] No Panel InformationOrdered By: Cayla Caicedo on 12-26-2024 Unsaturated Iron Binding Capacity 241 ug/dL 228-428 [facility] Nucleated red blood cell per centageOrdered By: Cayla Caicedo on 12-26-2024 Nucleated RBC/100 WBC (Bld) [Ratio] 0 % 0-5 [facility] Platelet countOrdered By: Jared Caicedo on 12-26-2024 Platelets (Bld) [#/Vol] 291 10*3/uL 150-450 [facility] Potassium (Unsp spec) [Mass/ Vol]Ordered By: Cayla Caicedo on 12-26-2024 Potassium [Moles/Vol] 4.7 mmol/L 3.3-5.1 [facility] Potassium measurement (mass/ volume)Ordered By: Cayla Caicedo on 12-26-2024 Potassium (Unsp spec) [Mass/Vol] 4.7 mmol/L 3.3-5.1 [facility] RBC Auto (Bld) [#/Vol]Ordere d By: Cayla Caicedo on 12-26-2024 RBC (Bld) [#/Vol] 3.92 10*6/uL Low 4.2-5.4 [facility] LAY OUT AND DETAIL DRAFTER abOrdered By: Cayla carnes on 12-26-2024 LAY OUT AND DETAIL DRAFTER Antibody <0.2 AI 0.0-0.9 [facility] Comment on above: Previous reported re sult: TNP AIEdited by: REBECCA on 12/27/24:1109 AMENDED REPORT 12/27/24 1109 LAY OUT AND DETAIL DRAFTER Ab previously reported as: Test not performed Rheumatoid Factoron 12-27-19 RHEUMATOID FAC < 10.0 Normal <15 [facility] Comment on above: Performed By: #### L 501.9520, L506.1001, L505.7010, L500.4050, L503.6030, L7000.5300, L4600.0100, L100.0100, L3100.5440, L503.0106 ####[facility] [address] [facility] [place], [place], [id number] Rheumatoid factor Ql (S)Orde red By: Cayla Caicedo on 12-26-2024 Rheumatoid Factor < 10.0 IU/mL <15 [facility] SCL-70 extractable nuclear A b Qn (S)Ordered By: Cayla Caicedo on 12-26-2024 Scl-70 (Scleroderma) Antibody <0.2 AI 0.0-0.9 [facility] SS-A IgG antibody assayOrder ed By: Cayla Caicedo on 12-26-2024 SS-A/Ro IgG Antibody < 0.2 AI 0.0-0.9 [facility] Comment on above: Previous reported re sult: TNP AIEdited by: REBECCA on 12/27/24:1109 AMENDED REPORT 12/27/241108 Anti-SS-A previously reported as: Test not performed SS-B IgG antibody assayOrder ed By: Cayla Caicedo on 12-26-2024 SS-B/La IgG Antibody < 0.2 AI 0.0-0.9 [facility] Comment on above: Previous reported re sult: TNP AIEdited by: REBECCA on 12/27/24:1109 AMENDED REPORT 12/27/241108 Anti-SS-B previously reported as: Test not performed Serum DNA double strand anti body assay (units/volume)Ordered By: Cayla Caicedo on 12-26-2024 DNA double strand Ab Qn (S) [IU]/mL 0-9 [facility] Comment on above: Negative <5 Equivoca l 5 - 9 Positive >9 Serum Scl-70 antibody assay (units/volume)Ordered By: Cayla Caicedo on 12-26-2024 SCL-70 extractable nuclear Ab Qn (S) <0.2 AI 0.0-0.9 [facility] Serum creatinine measurement (mass/volume)Ordered By: Cayla Caicedo on 12-26-2024 Creatinine [Mass/Vol] 0.72 mg/dL 0.70-1.20 [facility] Serum globulin measurementOr dered By: Cayla Caicedo on 12-26-2024 Globulin (S) [Mass/Vol] 2.8 g/dL 2.2-4.2 [facility] Serum glucose measurement (m ass/volume)Ordered By: Cayla Caicedo on 12-26-2024 Glucose [Mass/Vol] 89 mg/dL 70-99 [facility] Serum or plasma alanine worrell otransferase (ALT) measurementOrdered By: Cayla Caicedo on 12-26-2024 ALT [Catalytic activity/Vol] 27 U/L <35 [facility] Serum or plasma albumin hakan urement (mass/volume)Ordered By: Cayla Caicedo on 12-26-2024 Albumin [Mass/Vol] 4.1 g/dL 3.4-4.8 [facility] Serum or plasma albumin/glob ulin mass ratioOrdered By: Cayla Caicedo on 12-26-2024 Albumin/Globulin [Mass ratio] 1.5 {ratio} 0.9-2.4 [facility] Serum or plasma alkaline mark sphatase measurementOrdered By: Cayla Caicedo on 12-26-2024 ALP [Catalytic activity/Vol] 102 U/L 35-104 [facility] Serum or plasma calcium hakan urement (mass/volume)Ordered By: Cayla Caicedo on 12-26-2024 Calcium [Mass/Vol] 9.6 mg/dL 7.6-11.0 [facility] Serum or plasma cyclic citru llinated peptide IgG antibody assay (units/volume)Ordered By: Cayla Caicedo on 12-26-2024 Cyclic citrullinated peptide IgG Qn 9 units 0-19 [facility] Comment on above: Negative <20 Weak po sitive 20 - 39 Moderate positive 40 - 59 Strong positive >59Performed at: [facility] [place]Em[place] [id number] Director: Lul Hassan PhD, Phone: [phone] Serum or plasma iron saturat ion measurement (mass fraction)Ordered By: Cayla Caicedo on 12-26-2024 Iron saturation [Mass fraction] 22.8 % 13-59 [facility] Comment on above: Previous reported re sult: 23.0 %Edited by: AUTOINSunshine on 12/26/24:1550 AMENDED REPORT 12/26/24 1550 IRON SATURATION previously reported as: 23.0 % Serum or plasma urea nitroge n measurement (mass/volume)Ordered By: Cayla Caicedo on 12-26-2024 Urea nitrogen [Mass/Vol] 16 mg/dL 4-19 [facility] Serum rheumatoid factor dete ctionOrdered By: Cayla Caicedo on 12-26-2024 Rheumatoid factor Ql (S) < 10.0 IU/mL <15 [facility] Puri antibody assayOrdered By: Cayla Caicedo on 12-26-2024 SM Antibody 0.6 AI 0.0-0.9 [facility] Comment on above: Previous reported re sult: TNP AIEdited by: REBECCA on 12/27/24:1109 AMENDED REPORT 12/27/24 110 CELIA Ab previously reported as: Test not performed Sodium levelOrdered By: Vel Caicedo on 12-26-2024 Sodium [Moles/Vol] 138 mmol/L 133-145 [facility] TSH DL <= 0.005 mIU/L QnOrde red By: Cayla Caicedo on 12-26-2024 Thyroid Stimulating Hormone (TSH) 1.540 uIU/mL 0.300-4.200 [facility] TSH Qn 1.540 uIU/mL 0.300-4.200 [facility] Thyroid Stim Hormone (TSH)on 12-26-2024 TSH 1.540 uIU/mL Normal 0.300-4.200 [facility] Comment on above: Performed By: #### L 501.9520, L506.1001, L505.7010, L500.4050, L503.6030, L7000.5300, L4600.0100, L100.0100, L3100.5440, L503.0106 ####[facility] [address] [place], [address] Total proteinOrdered By: Richy Caicedo on 12-26-2024 Protein [Mass/Vol] 6.9 g/dL 5.9-8.4 [facility] Vitamin B12 ser/plasOrdered By: Cayla Caicedo on 12-26-2024 Cobalamin (Vitamin B12) [Mass/Vol] 1248 pg/mL High 180-914 [facility] Vitamin D, 25-hydroxyOrdered By: Cayla Caicedo on 12-26-2024 Vitamin D 25-Hydroxy 70.6 ng/mL 30-100 [facility] Comment on above: Vitamin D StatusDefi ciency: <20 ng/mL (50nmol/L)Insufficiency: 20-30 ng/mL (50-75 nmol/L)Sufficiency: 30-100 ng/mL (75-250 nmol/L)Toxicity: >100 ng/mL (>250 nmol/L) White blood cell (WBC) count Ordered By: Cayla Caicedo on 12-26-2024 WBC (Bld) [#/Vol] 5.6 10*3/uL 4.4-11.0 [facility] Internal Medicine Office Vis iton 12-25-2024 Internal Medicine Office Visit [facility] [address] [place] [address] [place] [address] OFFICE VISIT Date of Service: 12/26/24 MR#: [id number] Acct: [id number] Name: JENA COTA Rep #: [id number] : 1940 Provider: Dr. Cayla flores MD Age/Sex: 84/F Location: [facility] [place] Status: Signed Intake Vital Signs 10/03/24 08:29 12/26/24 08:46 Height 5 ft 3 in 5 ft 3 in Weight: 115 lb 6 oz BMI 20.4 BP 128/80 H Blood Pressure Location Rt brachial Position Sitting Respiration 16 Pulse 82 Pulse Source Monitor Temp 97.2 F L Temp Source Temporal Pulse Oximetry (%) 98 Oxygen Delivery Method room air Intake Visit Reasons: EST NEW PT -PPW BROUGHT IN Basic Acoustic Analyst Required: No Accompanied by: Daughter Is patient in pain?: No Allergies Sulfa (Sulfonamide Antibiotics) Allergy (Verified 12/26/24 08:27) UNKNOWN Medications ???Medication ???Instructions ???Recorded ???Confirmed ???Type alendronate 70 mg tablet 70 mg PO QWEEK OSTEOPOROSIS 12/26/24 History cholecalciferol (vitamin D3) 50 50 mcg PO DAILY 03/01/22 12/26/24 History mcg (2,000 unit) capsule multivitamin 1 tab PO DAILY SUPPLEMENT 03/01/22 12/26/24 History vitamin B complex 1 tab PO DAILY SUPPLEMENT 03/01/22 12/26/24 History vitamins A,C,R-qhcx-xjrouf 4,296 1 cap PO BID EYE HEALTH 03/01/22 0 12/26/24 History mcg-226 mg-90 mg capsule (PreserVision AREDS) jvxohds-izqlozassvdkh-c affeine 250 1 tab PO ONCE PRN pain 03/03/22 12/26/24 History mg-250 mg-65 mg tablet (Excedrin Extra Strength) propylene glycol 0.6 % eye drops 1 drp ophthalmic (eye) DAILY PRN 0 03/03/22 12/26/24 History (Systane Balance) dry eye(s) calcium 500 mg (as 1 tab PO DAILY SUPPLEMENT 06/01/22 12/26/24 History carbonate)-vitamin D3 10 mcg (400 unit) tablet (Calcium 500 + D) omega-3 fatty acids 1,000 mg PO DAILY SUPPLEMENT 05/1312/26/24 History sertraline 50 mg tablet 50 mg PO QDAY 10/03/24 12/26/24 Hi story levothyroxine 112 mcg tablet 112 mcg PO DAILY Hypothyroidism 12/26/24 History Have you fallen in the past year?: No Nurse's Note: Needs refills on fosamax, and levothyroxine. Would like to see an billet grinder Would like to see Dr. funk if taking patients but jose l huitron/ Kellie Hwang. States she has been complaining about not having any energy did PT and ordered sleep study but was not a candidate. Pt had concerns regarding Martina De La Fuente not explaining things to her, or looking into issues shes brought up. 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 Cayla Caicedo MD) Father Cancer bladder Mother Hypertension Heart disease CHF COPD (chronic obstructive pulmonary disease) Anemia Arthritis Age related osteoporosis Brother Cancer pancreatic Brother Pulmonary embolism Skin cancer Social History (Updated 12/26/24 @ 08:[address] 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 She was seeing Martina Conner NP and last saw them in September. She is not due for any routine blood work. She is not d ue for any further screening. She doesn't want any further COVID vaccines, but isn't due for any other vaccines. She doesn't smoke and does need refills. She reports she is eating healthy and staying active. The patient has a history of osteoporosis which was diagnosed several years ago. She takes her fosamax weekly and denies any problems with it. She states she has been on it for multiple years. Her last bone density was done in 04/2023 which showed some improvement. The patient has been on thyroid medications for several years. She takes her synthroid first thing in the morning bef (more content not included)... Normal [facility] Cardiology Visit Reporton Cardiology Visit Report [facility] [address] [place] [address] OFFICE VISIT Date of Service: 10/03/24 MR#: [id number] Acct: [id number] Name: JNEA COTA ANN Rep #: [id number] : 1940 Provider: MAIKEL Nails Age/Sex: 84/F Location[place] [facility] [place] Status: Signed HPI HPI History of Present Illness Details: This is a 84-year-old lady who presents to the office today for a cardiovascular follow-up visit. She has no previous cardiac history who was consulted for dizziness, fatigue since she had her blood pressure medications changed. She has had a series of tests dating back to 2019. A stress echo in 2019 for fatigue and hypertension demonstrated no evidence of ischemia at a workload of 4 metabolic equivalents. She had complained of dizziness for several months and underwent an echocardiographic evaluation which demonstrated an ejection fraction of 70% in August 2021. Pulmonary artery systolic pressure 40 to 45 mmHg were noted and she did have some aortic sclerosis with no stenosis and moderate to severe mitral calcification with mild mitral regurgitation. She subsequently had a carotid ultrasound performed in January 2022 demonstrating no significant stenosis and a previous blood flow study had demonstrated normal ankle-brachial indices. As part of her dizziness work-up she had a Holter monitor performed in January 2022 demonstrating average heart rate of 72 bpm in sinus rhythm, minimum of 54 bpm and a maximum 110 bpm while in sinus rhythm. She also had a CT scan of her brain which demonstrated chronic involutional changes with no evidence of hemorrhage or ischemia. Her thyroid function test demonstrated a TSH of 3.9 her lipid profile was excellent with an LDL of 68 and an HDL of 86. She was started on metoprolol which was added after the Holter results and that is when her fatigue began. This was discontinued after her last office visit. She underwent a ambulatory blood pressure monitor which demonstrated mildly elevated blood pressure readings. Patient was in the emergency room in July for palpitations. Workup was benign. Overall from a cardiac standpoint she is doing well. Intake Vital Signs 03/28/24 08:40 07/30/24 10:08 10/03/24 08:29 Height 5 ft 3 in 5 ft 3 in 5 ft 3 in Weight: 112 lb BMI 19.8 BP 138/75 H Blood Pressure Location Lt brachial Position Sitting Respiration 18 Pulse 94 Pulse Source Monitor Pulse Oximetry (%) 97 Intake Visit Reasons: 6 M Basic Acoustic Analyst Required: No Is patient in pain?: No Allergies Sulfa (Sulfonamide Antibiotics) Allergy (Verified 10/03/24 08:31) UNKNOWN Medications ???Medication ???Instructions ???Recorded ???Confirmed ???Type alendronate 70 mg tablet 70 mg PO QWEEK OSTEOPOROSIS 03/01/22 10/03/24 History cholecalciferol (vitamin D3) 50 50 mcg PO DAILY 03/01/22 10/03/24 History mcg (2,000 unit) capsule multivitamin 1 tab PO DAILY SUPPLEMENT 03/01/22 10/03/24 History vitamin B complex 1 tab PO DAILY SUPPLEMENT 03/01/22 10/03/24 History vitamins A,C,D-onau-chjhlh 4,296 1 cap PO BID EYE HEALTH 03/01/22 10/03/24 History mcg-226 mg-90 mg capsule (PreserVision AREDS) bzmgwkg-fnueumhjsxfqh-z affeine 250 1 tab PO ONCE PRN pain 03/03/22 10/03/24 History mg-250 mg-65 mg tablet (Excedrin Extra Strength) propylene glycol 0.6 % eye drops 1 drp ophthalmic (eye) DAILY PRN 03/03/22 10/03/24 History (Systane Balance) dry eye(s) calcium 500 mg (as 1 tab PO DAILY SUPPLEMENT 06/01/22 10/03/24 History carbonate)-vitamin D3 10 mcg (400 unit) tablet (Calcium 500 + D) omega-3 fatty acids 1,000 mg PO DAILY SUPPLEMENT 05/13/23 10/03/24 History levothyroxine 88 mcg tablet 112 mcg PO DAILY THYROID 03/28/24 10/03/24 History (Synthroid) sertraline 50 mg tablet 50 mg PO QDAY 10/03/24 10/03/24 History Have you fallen in the past year?: No PFSH Medical History Hypertension Stroke/cerebrovascular accident 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 Normal [facility] Albumin to globulin ratioOrd ered By: Martina Conner on 09-30-2024 Albumin/Globulin [Mass ratio] 1.0 {ratio} 0.9-2.4 [facility] Bilirubin, totalOrdered By: Martina Conner on 09-30-2024 Bilirubin [Mass/Vol] 0.90 mg/dL 0.20-1.00 [facility] Comment on above: For patients on eltr ombopag therapy, use of Dimension [place] TBIL is not recommended. Blood urea nitrogen (BUN)/cr eatinine ratioOrdered By: Martina Conner on 09-30-2024 Urea nitrogen/Creatinine [Mass ratio] 25.8 mg/mg High 10-20 [facility] Carbon dioxide measurementOr dered By: Martina Conner on 09-30-2024 CO2 [Moles/Vol] 27.0 mmol/L 21.0-32.0 [facility] Chloride measurementOrdered By: Martina Conner on 09-30-2024 Chloride [Moles/Vol] 101 mmol/L 98-107 [facility] Comprehensive Metabolic Prof ilon 09-30-2024 Albumin [Mass/Vol] 3.4 g/dL Normal 3.2-5.0 [facility] Comment on above: Performed By: #### L 501.9520, L500.4100, L500.4050 #### [facility] [address] [place], [address] Albumin/Globulin [Mass ratio] 1.0 {ratio} Normal 0.9-2.4 [facility] Comment on above: Performed By: #### L 501.9520, L500.4100, L500.4050 #### [facility] [address] [place], [address] ALK P 81 U/L Normal 45-117 [facility] Comment on above: Performed By: #### L 501.9520, L500.4100, L500.4050 #### [facility] [address] [place], [address] ALT [Catalytic activity/Vol] 27 U/L Normal 13-56 [facility] Comment on above: Performed By: #### L 501.9520, L500.4100, L500.4050 #### [facility] [address] [place], [address] AST [Catalytic activity/Vol] 30 U/L Normal 15-37 [facility] Comment on above: Performed By: #### L 501.9520, L500.4100, L500.4050 #### [facility] [address] [place], [address] Bilirubin [Mass/Vol] 0.90 mg/dL Normal 0.20-1.00 [facility] Comment on above: Result Comment: For patients on eltrombopag therapy, use of Dimension [place] TBIL is not recommended. Performed By: #### L 501.9520, L500.4100, L500.4050 #### [facility] [address] [place], [address] BUN/CRE 25.8 RATIO High 10-20 [facility] Comment on above: Performed By: #### L 501.9520, L500.4100, L500.4050 #### [facility] [address] [place], [address] CA,Total 9.0 mg/dL Normal 8.5-10.1 [facility] Comment on above: Performed By: #### L 501.9520, L500.4100, L500.4050 #### [facility] [address] [place], [address] Chloride [Moles/Vol] 101 mmol/L Normal 98-107 [facility] Comment on above: Performed By: #### L 501.9520, L500.4100, L500.4050 #### [facility] [address] [place], [address] CO2 [Moles/Vol] 27.0 mmol/L Normal 21.0-32.0 [facility] Comment on above: Performed By: #### L 501.9520, L500.4100, L500.4050 #### [facility] [address] [place], [address] Creatinine [Mass/Vol] 0.82 mg/dL Normal 0.55-1.02 [facility] Comment on above: Result Comment: The validity of the calculated GFR GFRAA in patients over 70 years has not been determined. Clinical correlation is essential. Performed By: #### L 501.9520, L500.4100, L500.4050 #### [facility] [address] [place], [address] EST GFR - AA 86 mL/min Normal >60 [facility] Comment on above: Result Comment: Afri can [place] GFR Calc Performed By: #### L 501.9520, L500.4100, L500.4050 #### [facility] [address] [place], [address] GAP 7 Normal 5-15 [facility] Comment on above: Performed By: #### L 501.9520, L500.4100, L500.4050 #### [facility] [address] [place], [address] GFR/1.73 sq M.predicted among non-blacks MDRD (S/P/Bld) [Vol rate/Area] 71 mL/min/{1.73_m2} Normal >60 [facility] Comment on above: Result Comment: Non- GFR Calc Performed By: #### L 501.9520, L500.4100, L500.4050 #### [facility] [address] [place], [address] Globulin (S) [Mass/Vol] 3.5 g/dL Normal 2.2-4.2 [facility] Comment on above: Performed By: #### L 501.9520, L500.4100, L500.4050 #### [facility] [address] [place], [address] Glucose [Mass/Vol] 87 mg/dL Normal 74-106 [facility] Comment on above: Performed By: #### L 501.9520, L500.4100, L500.4050 #### [facility] [address] [place], [address] Potassium [Moles/Vol] 4.0 mmol/L Normal 3.5-5.1 [facility] Comment on above: Performed By: #### L 501.9520, L500.4100, L500.4050 #### [facility] [address] [place], [address] Sodium [Moles/Vol] 135 mmol/L Low 136-145 [facility] Comment on above: Performed By: #### L 501.9520, L500.4100, L500.4050 #### [facility] [address] [place], [address] T PROT 6.9 g/dL Normal 6.4-8.2 [facility] Comment on above: Performed By: #### L 501.9520, L500.4100, L500.4050 #### [facility] [address] [place], [address] Urea nitrogen [Mass/Vol] 21 mg/dL High 7-18 [facility] Comment on above: Performed By: #### L 501.9520, L500.4100, L500.4050 #### [facility] [address] [place], [address] Estimated glomerular filtrat ion rate (GFR) AmericanOrdered By: Martina Conner on 09-30-2024 Estimated GFR (MDRD) Amer 86 mL/min >60 [facility] Comment on above: GFR Calc Glomerular filtration rate ( GFR) estimationOrdered By: Martina Conner on 09-30-2024 Estimated GFR (MDRD) Non-Af Amer 71 mL/min >60 [facility] Comment on above: Non- GFR Calc Glucose measurementOrdered B y: Martina Conner on 09-30-2024 Glucose [Mass/Vol] 87 mg/dL 74-106 [facility] High density lipoprotein (HD L) measurementOrdered By: Martina Conner on 09-30-2024 Cholesterol in HDL [Mass/Vol] 90 mg/dL >40 [facility] Comment on above: The drugs N-Acetylcy steine and Metamizole may falsely depress this assay. Reference Range HDL <40 mg/dL Low HDL Cholesterol HDL >or= 60 mg/dL High HDL Cholesterol Laboratory - Chemistry and C hemistry - challengeOrdered By: Martina Conner on 09-30-2024 AST [Catalytic activity/Vol] 30 U/L 15-37 [facility] Lipid Profileon 09-30-2024 Cholesterol [Mass/Vol] 170 mg/dL Normal 200 [facility] Comment on above: Result Comment: <200 mg/dL Desirable 200-240 mg/dL Borderline >240 mg/dL High Risk Performed By: #### L 501.9520, L500.4100, L500.4050 #### [facility] [address] [place], [address] Cholesterol in HDL [Mass/Vol] 90 mg/dL Normal [facility] Comment on above: Result Comment: The drugs N-Acetylcysteine and Metamizole may falsely depress this assay. Reference Range HDL <40 mg/dL Low HDL Cholesterol HDL >or= 60 mg/dL High HDL Cholesterol Performed By: #### L 501.9520, L500.4100, L500.4050 #### [facility] [address] [place], [address] Cholesterol in LDL [Mass/Vol] 71 mg/dL Normal 0-130 [facility] Comment on above: Performed By: #### L 501.9520, L500.4100, L500.4050 #### [facility] [address] [place], [address] Cholesterol in VLDL [Mass/Vol] 9 mg/dL Normal 5-40 [facility] Comment on above: Performed By: #### L 501.9520, L500.4100, L500.4050 #### [facility] [address] [place], [address] Triglyceride [Mass/Vol] 45 mg/dL Normal [facility] Comment on above: Result Comment: The drugs N-Acetylcysteine and Metamizole may falsely depress this assay. Serum Triglycerides Reference Interval Normal <150 mg/dL Borderline high 150 - 199 mg/dL High 200 - 499 mg/dL Very High > or = 500 mg/dL Performed By: #### L 501.9520, L500.4100, L500.4050 #### [facility] [address] [place], [place], [address] Low density lipoprotein (LDL ) cholesterol measurementOrdered By: Martina Conner on 09-30-2024 Cholesterol in LDL [Mass/Vol] 71 mg/dL 0-130 [facility] Potassium measurementOrdered By: Martina Conner on 09-30-2024 Potassium [Moles/Vol] 4.0 mmol/L 3.5-5.1 [facility] Serum anion gap measurementO rdered By: Martina Conner on 09-30-2024 Anion gap [Moles/Vol] 7 mmol/L 5-15 [facility] Serum globulin measurementOr dered By: Martina Conner on 09-30-2024 Globulin (S) [Mass/Vol] 3.5 g/dL 2.2-4.2 [facility] Serum or plasma alanine worrell otransferase (ALT) measurementOrdered By: Martina Conner on 09-30-2024 ALT [Catalytic activity/Vol] 27 U/L 13-56 [facility] Serum or plasma albumin hakan urement (mass/volume)Ordered By: Martina Conner on 09-30-2024 Albumin [Mass/Vol] 3.4 g/dL 3.2-5.0 [facility] Serum or plasma alkaline mark sphatase measurementOrdered By: Martina Conner on 09-30-2024 ALP [Catalytic activity/Vol] 81 U/L 45-117 [facility] Serum or plasma calcium hakan urement (mass/volume)Ordered By: Martina Conner on 09-30-2024 Calcium [Mass/Vol] 9.0 mg/dL 8.5-10.1 [facility] Serum or plasma cholesterol measurement (mass/volume)Ordered By: Martina Conner on 09-30-2024 Cholesterol [Mass/Vol] 170 mg/dL <200 [facility] Comment on above: <200 mg/dL Desirable 200-240 mg/dL Borderline >240 mg/dL High Risk Serum or plasma creatinine m easurement (mass/volume)Ordered By: Martina Conner on 09-30-2024 Creatinine [Mass/Vol] 0.82 mg/dL 0.55-1.02 [facility] Comment on above: The validity of the calculated GFR & GFRAA in patients over 70 years has not been determined. Clinical correlation is essential. Serum or plasma urea nitroge n measurement (mass/volume)Ordered By: Martina Conner on 09-30-2024 Urea nitrogen [Mass/Vol] 21 mg/dL High 7-18 [facility] Sodium levelOrdered By: Mary Conner on 09-30-2024 Sodium [Moles/Vol] 135 mmol/L Low 136-145 [facility] TSH QnOrdered By: Martina nguyen on 09-30-2024 Thyroid Stimulating Hormone (TSH) 3.710 uIU/mL 0.358-3.740 [facility] Thyroid Stim Hormone (TSH)on 09-30-2024 TSH 3.710 uIU/mL Normal 0.358-3.740 [facility] Comment on above: Performed By: #### L 501.9506, L500.4100, L500.4050 #### [facility] [address] [place], [address] Total proteinOrdered By: Juan Conner on 09-30-2024 Protein [Mass/Vol] 6.9 g/dL 6.4-8.2 [facility] Triglycerides measurementOrd ered By: Martina Conner on 09-30-2024 Triglyceride [Mass/Vol] 45 mg/dL <199 [facility] Comment on above: The drugs N-Acetylcy steine and Metamizole may falsely depress this assay.Serum Triglycerides Reference Interval Normal <150 mg/dL Borderline high 150 - 199 mg/dL High 200 - 499 mg/dL Very High > or = 500 mg/dL Very low density lipoprotein (VLDL) cholesterol measurementOrdered By: Martina Conner on 09-30-2024 VLDL Cholesterol 9 mg/dL 5-40 [facility] 12 Lead EKGon 07-30-2024 12 Lead EKG [facility] [address] [place] [address] 12 Lead EKG 07/30/24 1015 MR#: [id number] Acct: [id number] Name: JENA COTA Rep #: [id number] : 1940 84 From: Luigi Encarnacion MD Attending Dr: Status: DEP ER Ordering Dr: Toni Sharma DO Date: 07/30/24 Location: ED Sex: F C Admitted: Test Reason : PALP Blood Pressure : / mmHG Vent. Rate : 094 BPM Atrial Rate : 094 BPM P-R Int : 168 ms QRS Dur : 072 ms QT Int : 350 ms P-R-T Axes : 083 049 073 degrees QTc Int : 437 ms Normal sinus rhythm Possible Left atrial enlargement Nonspecific ST abnormality Abnormal ECG Confirmed by Luigi Encarnacion ([id number]), publications editor HILLARY MYLES ([id number]) on 07/31/2024 9:21:29 AM Referred By: LULA/JERROD Confirmed By:Luigi Encarnacion 07/31/24920 Date Luigi Encarnacion MD CC: DIAMOND GRINDER-C Martina Conner; Dr. Toni Sharma DO Signed Normal [facility] Basic Metabolic Profile (BMP )on 07-30-2024 BUN/CRE 17.5 RATIO Normal 08-04 [facility] Comment on above: Order Comment: 1 Y Performed By: #### L 100.0100, L500.2500, L501.5425 #### [facility] [address] [place], [address] CA,Total 9.5 mg/dL Normal 8.5-10.1 [facility] Comment on above: Order Comment: 1 Y Performed By: #### L 100.0100, L500.2500, L501.5425 #### [facility] [address] [place], [address] Chloride [Moles/Vol] 102 mmol/L Normal 98-107 [facility] Comment on above: Order Comment: 1 Y Performed By: #### L 100.0100, L500.2500, L501.5425 #### [facility] [address] [place], [address] CO2 [Moles/Vol] 28.0 mmol/L Normal 21.0-32.0 [facility] Comment on above: Order Comment: 1 Y Performed By: #### L 100.0100, L500.2500, L501.5425 #### [facility] [address] [place], [address] Creatinine [Mass/Vol] 0.80 mg/dL Normal 0.55-1.02 [facility] Comment on above: Order Comment: 1 Y Result Comment: The validity of the calculated GFR GFRAA in patients over 70 years has not been determined. Clinical correlation is essential. Performed By: #### L 100.0100, L500.2500, L501.5425 #### [facility] [address] [place], [address] ECRCL 40.99 ml/min Normal [facility] Comment on above: Order Comment: 1 Y Performed By: #### L 100.0100, L500.2500, L501.5425 #### [facility] [address] [place], [address] EST GFR - AA 87 mL/min Normal >60 [facility] Comment on above: Order Comment: 1 Y Result Comment: Afri can [place] GFR Calc Performed By: #### L 100.0100, L500.2500, L501.5425 #### [facility] [address] [place], [address] GAP 6 Normal 5-15 [facility] Comment on above: Order Comment: 1 Y Performed By: #### L 100.0100, L500.2500, L501.5425 #### [facility] [address] [place], [address] GFR/1.73 sq M.predicted among non-blacks MDRD (S/P/Bld) [Vol rate/Area] 72 mL/min/{1.73_m2} Normal >60 [facility] Comment on above: Order Comment: 1 Y Result Comment: Non- GFR Calc Performed By: #### L 100.0100, L500.2500, L501.5425 #### [facility] [address] [place], [address] Glucose [Mass/Vol] 100 mg/dL Normal 74-106 [facility] Comment on above: Order Comment: 1 Y Result Comment: Fast ing Glucose result from 100 to 125 mg/dL suggests IMPAIRED HOMEOSTASIS per A.D.A. criteria. Performed By: #### L 100.0100, L500.2500, L501.5425 #### [facility] [address] [place], [address] Potassium [Moles/Vol] 4.4 mmol/L Normal 3.5-5.1 [facility] Comment on above: Order Comment: 1 Y Performed By: #### L 100.0100, L500.2500, L501.5425 #### [facility] [address] [place], [address] Sodium [Moles/Vol] 135 mmol/L Low 136-145 [facility] Comment on above: Order Comment: 1 Y Performed By: #### L 100.0100, L500.2500, L501.5425 #### [facility] [address] [place], [address] Urea nitrogen [Mass/Vol] 14 mg/dL Normal 7-18 [facility] Comment on above: Order Comment: 1 Y Performed By: #### L 100.0100, L500.2500, L501.5425 #### [facility] [address] [place], [address] CBC W/Diff, Automatedon 07-16 Absolute Lymph 0.97 X10 3/uL Normal 0.83-4.51 [facility] Comment on above: Performed By: #### L 100.0100, L500.2500, L501.5425 #### [facility] [address] [place], [address] Absolute Neut 2.9 X10 3/uL Normal 2.0-7.7 [facility] Comment on above: Performed By: #### L 100.0100, L500.2500, L501.5425 #### [facility] [address] [place], [address] Basophils/100 WBC (Bld) 1.7 % High 0-1 [facility] Comment on above: Performed By: #### L 100.0100, L500.2500, L501.5425 #### [facility] [address] [place], [address] Eosinophils/100 WBC (Bld) 2.8 % Normal 0-5 [facility] Comment on above: Performed By: #### L 100.0100, L500.2500, L501.5425 #### [facility] [address] [place], [address] Erythrocyte distribution width (RBC) [Ratio] 12.3 % Normal 11.6-14.6 [facility] Comment on above: Performed By: #### L 100.0100, L500.2500, L501.5425 #### [facility] [address] [place], [address] Hematocrit (Bld) [Volume fraction] 40.0 % Normal 37-47 [facility] Comment on above: Performed By: #### L 100.0100, L500.2500, L501.5425 #### [facility] [address] [place], [address] Hemoglobin (Bld) [Mass/Vol] 13.6 g/dL Normal 12.0-15.0 [facility] Comment on above: Performed By: #### L 100.0100, L500.2500, L501.5425 #### [facility] [address] [place], [address] IG% 0.200 Normal 0.0-0.9 [facility] Comment on above: Result Comment: IG% - Immature Granulocytes (promyelocytes, myelocytes and metamyelocytes) > 1% indicates that a LEFT SHIFT is Present. Performed By: #### L 100.0100, L500.2500, L501.5425 #### [facility] [address] [place], [address] Lymphocytes/100 WBC (Bld) 21.1 % Normal 19-41 [facility] Comment on above: Performed By: #### L 100.0100, L500.2500, L501.5425 #### [facility] [address] [place], [address] MCH (RBC) [Entitic mass] 31.1 pg Normal 27.0-32.0 [facility] Comment on above: Performed By: #### L 100.0100, L500.2500, L501.5425 #### [facility] [address] [place], [address] MCHC (RBC) [Mass/Vol] 34.0 g/dL Normal 32-36 [facility] Comment on above: Performed By: #### L 100.0100, L500.2500, L501.5425 #### [facility] [address] [place], [address] MCV (RBC) [Entitic vol] 91.5 fL Normal 81-99 [facility] Comment on above: Performed By: #### L 100.0100, L500.2500, L501.5425 #### [facility] [address] [place], [address] Monocytes/100 WBC (Bld) 11.7 % High 0-10 [facility] Comment on above: Performed By: #### L 100.0100, L500.2500, L501.5425 #### [facility] [address] [place], [address] Neutrophils/100 WBC (Bld) 62.5 % Normal 47-70 [facility] Comment on above: Performed By: #### L 100.0100, L500.2500, L501.5425 #### [facility] [address] [place], [address] Nucleated RBC (Bld) [#/Vol] 0 10*3/uL Normal 0-5 [facility] Comment on above: Performed By: #### L 100.0100, L500.2500, L501.5425 #### [facility] [address] [place], [address] Platelet mean volume (Bld) [Entitic vol] 9.4 fL Normal 6.2-12.0 [facility] Comment on above: Performed By: #### L 100.0100, L500.2500, L501.5425 #### [facility] [address] [place], [address] Platelets (Bld) [#/Vol] 243 10*3/uL Normal 150-450 [facility] Comment on above: Performed By: #### L 100.0100, L500.2500, L501.5425 #### [facility] [address] [place], [address] RBC (Bld) [#/Vol] 4.37 10*6/uL Normal 4.2-5.4 [facility] Comment on above: Performed By: #### L 100.0100, L500.2500, L501.5425 #### [facility] [address] [place], [address] RDW SD 41.5 fl Normal 35.1-43.9 [facility] Comment on above: Performed By: #### L 100.0100, L500.2500, L501.5425 #### [facility] [address] [place], [address] WBC (Bld) [#/Vol] 4.6 10*3/uL Normal 4.4-11.0 [facility] Comment on above: Performed By: #### L 100.0100, L500.2500, L501.5425 #### [facility] [address] [place], [address] Chest 1 View (Portable)on Chest 1 View (Portable) [facility] [address] [place] [address] Chest 1 View (Portable) MR#: [id number] Acct: [id number] Name: JENA COTA Rep #: [id number] : 1940 F 84 From: Nayan Ojeda MD PCP: Martina Conner, DIAMOND GRINDER-C Status: PRE ER Study: Chest 1 View (Portable) Date of Exam: 07/30/24 Exam# [id number] Ordering Dr: [place]. [id number] EXAM: XR CHEST, 1 VIEW CLINICAL INDICATION: chest pain TECHNIQUE: Frontal view of the chest. COMPARISON: No relevant prior studies available. FINDINGS: LUNGS AND PLEURAL SPACES: Mild pulmonary hyperinflation with flattening of the hemidiaphragms. 2 calcified granulomas in the left midlung. No consolidation or edema. No pleural effusions. No pneumothorax. HEART: Unremarkable. Cardiac silhouette not enlarged. MEDIASTINUM: Central airways and mediastinal contour are unremarkable. BONES/JOINTS: Unremarkable. No acute fracture. SOFT TISSUES: Unremarkable. RAD/Chest 1 View (Portable) IMPRESSION: 1. No acute findings in the chest. 2. Mild COPD. Electronically Signed: Nayan Ojeda MD at 11:02 EDT , CC: DIAMOND GRINDERRocío Conner; ED PHYSICIAN PROVIDER [employer] Assistant: Signed Normal [facility] Emergency Department Summary on 07-30-2024 Emergency Department Summary [facility] Medical Records Department [address] [place] [address] Emergency Department Summary 07/30/24 MR#: [id number] Acct: [id number] Name: JENA COTA Rep #: [id number] : 1940 84 From: Toni Sharma DO PCP: SHILPI Sarah Status:DEP ER Location: ED HPI History of Present Illness Chief Complaint: Palpitations Informant: patient and family Narrative Narrative: 84-year-old female presenting to the emergency room chief complaint of palpitations. Patient states that she has not been sleeping well at night. She states that she has been waking up around 3:00 with dreams. She had been taking some Excedrin nighttime but has not taken it over the past several days. Last night she woke up around 0 300 due to some bad dreams. She felt her heart beating strongly and occasionally feeling a thump in the chest. She has been feeling intermittently dizzy. She states it is very hard for her to describe that sensation but states that it is intermittently. She states she is worn a Holter monitor in the past but has not been given any known cardiac dysrhythmia diagnoses. She states that she continued to not be able to sleep during the night who presents here for evaluation. 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 Osteoporosis Hypothyroidism Essential hypertension Hyperlipidemia Home Medications ???Medication ???Instructions ???Recorded ???Last Taken ???Type alendronate 70 mg tablet 70 mg PO QWEEK OSTEOPOROSIS 03/01/22 Unknown History cholecalciferol (vitamin D3) 50 50 mcg PO DAILY 03/01/22 Unknown History mcg (2,000 unit) capsule multivitamin 1 tab PO DAILY SUPPLEMENT 03/01/22 Unknown History vitamin B complex 1 tab PO DAILY SUPPLEMENT 03/01/22 Unknown History vitamins A,C,A-emba-ytjill 4,296 1 cap PO BID EYE HEALTH 03/01/22 Unknown History mcg-226 mg-90 mg capsule (PreserVision AREDS) vzctflw-xcdewzmygfpkw-k affeine 250 1 tab PO ONCE PRN pain 03/03/22 Unknown History mg-250 mg-65 mg tablet (Excedrin Extra Strength) propylene glycol 0.6 % eye drops 1 drp ophthalmic (eye) DAILY PRN 03/03/22 Unknown History (Systane Balance) dry eye(s) calcium 500 mg (as 1 tab PO DAILY SUPPLEMENT 06/01/22 Unknown History carbonate)-vitamin D3 10 mcg (400 unit) tablet (Calcium 500 + D) omega-3 fatty acids 1,000 mg PO DAILY SUPPLEMENT 05/13/23 Unknown History levothyroxine 88 mcg tablet 112 mcg PO DAILY THYROID 03/28/24 Unknown History (Synthroid) Allergy/AdvReac Type Severity Reaction Status Date / Time Sulfa (Sulfonamide Allergy UNKNOWN Verified 07/30/24 10:08 Antibiotics) Family History Father Cancer Mother Hypertension Heart disease CHF COPD (chronic obstructive pulmonary disease) Brother Cancer Surgical History S/P ERCP S/P laparoscopic cholecystectomy ( 04/2023) History of cataract surgery Social History Smoking Status: Never smoker alcohol intake: never substance use type: does not use caffeine: Yes Type: coffee ROS ROS ED Constitutional Constitutional ED: Denies chills, fever(s) or weight loss Eyes Eyes: Denies change in vision or diplopia ENT ENT ED: Denies ear pain, rhinorrhea or sore throat Cardiovascular Cardiovascular: Reports palpitations; Denies chest pain, orthopnea or racing heartbeat Respiratory/Chest Respiratory/Chest: Denies cough, dyspnea or orthopnea Gastrointestinal Gastrointestinal: Denies abdominal pain, diarrhea, nausea or vomiting Genitourinary Genitourinary ED: Denies dysuria, hematuria or urinary frequency Musculoskeletal Musculoskeletal: Denies arthralgias or myalgias Integumentary Denies abscess or rash Neurologic Neurologic: Denies headache(s) or weakness Psychiatric Psychiatric: Reports anxiety; Denies depression, suicidal ideation or suicidal thoughts Endocrine Endocrinology: Denies polydipsia, polyphagia or polyuria Allergic/Immunologic Allergic/Immunologic ED: Denies mouth swelling, tongue swelling or urticaria EXAM Physical Exam Const Vital Signs: 07/30/24 10:08 07/30/24 10:32 07/30/24 11:07 Temperature 97.8 F 97.8 F Temperature Source Oral Temporal Pulse Rate 101 H 78 Respiratory Rate 18 16 Blood Pressure 157/82 H 145/76 H Blood Pressure Mean 107 99 Pulse Ox 98 98 Oxygen Delivery Method Room Air Room Air Room Air 07/30/24 12:00 Temperature 98.9 F Temperature Source Temporal Pulse Rate 64 Respiratory Rate 18 Blood Pre (more content not included)... Normal [facility] L501.5425on 07-30-2024 TROPONIN-I HS 6 pg/mL Normal 3.0-54.0 [facility] Comment on above: Order Comment: 1 Y Result Comment: Oscar fall Note: New Test Units and Gender Specific Reference Ranges. For more information see Policy Stat Procedure [place] High Sensitivity Troponin (TNIH) and attachments. Performed By: #### L 100.0100, L500.2500, L501.5425 #### [facility] [address] [place], [place], [address] SCRN MAMM (CAD)W/LOAN BILATo n 04-23-2024 SCRN MAMM (CAD)W/LOAN BILAT [facility] [address] [place], [place] [address] SCRN MAMM (CAD)W/LOAN BILAT MR#: [id number] Acct: [id number] Name: JENA COTA ANN Rep #: [id number] : 1940 F 83 From: Per barahona MD PCP: Martina Conner [facility] GRINDER-C Status: REG CLI Study: SCRN MAMM (CAD)W/LOAN BILAT Date of Exam: 07/09 Exam# [id number] Ordering Dr: Martina Conner [id number] MAMMOGRAPHY - BILATERAL SCREENING REASON FOR EXAM: Female, 83 years old. Routine annual screening examination. PERTINENT HISTORY: Non-contributory. TECHNIQUE: Digital bilateral breast loan (3D mammographic acquisition) in the CC and MLO projections. 2-D mediolateral oblique (MLO) and craniocaudad (CC) views of both breasts were obtained. CAD: Full Field Digital Mammography with Computer Added Detection was performed. COMPARISON: Comparison is made with prior study dated May 02, 2023 and April 28, 2022. FINDINGS: Breast Composition: The breasts are extremely dense, which lowers the sensitivity of mammography. There are no dominant masses or suspicious calcifications. Stable bilateral secretory calcifications. No other significant abnormalities are identified. There has been no significant change since the prior study. BI/SCRN MAMM (CAD)W/LOAN BILAT IMPRESSION: Stable bilateral screening mammogram. Yearly follow-up mammogram recommended. (A) ASSESSMENT CATEGORY: BIRADS Category 2: Benign. A letter regarding these results will be sent to the patient by the facility within 30 days. Approximately 10% of breast cancers are not detected by mammography. A normal mammogram should not delay biopsy of a clinically suspicious abnormality. [id number] Electronically Signed: Per Frye MD at 10:41 EDT , CC: SHILPI [facility] Assistant: Signed Normal [facility] Vitamin B12on 04-12-2024 Cobalamin (Vitamin B12) [Mass/Vol] 512 pg/mL Normal 211-911 [facility] Comment on above: Performed By: #### L 503.0105, L506.1000 ####[facility] [id number] [place], [address] Vitamin D,25 Hydroxyon 04-12 Vitamin D 25-OH 77.7 ng/mL Normal [facility] Comment on above: Result Comment: Shaylee min D 25(OH) Status Range Deficiency <20 ng/mL (50nmol/L) Insufficiency 20 - 30 ng/mL (50 - 75 nmol/L) Sufficiency 30 - 100 ng/mL (75 - 250 nmol/L) Toxicity >100 ng/mL (>250 nmol/L) Performed By: #### L 503.0105, L506.1000 ####[facility] [id number] [place], [address] Basophil percentageOrdered B y: Martina Conner on 01-09-2024 Bilirubin [Mass/Vol] 1.40 mg/dL 0.20-1.00 [facility] Comment on above: For patients on eltr ombopag therapy, use of Dimension [place] TBIL is not recommended. Chloride [Moles/Vol] 103 mmol/L 98-107 [facility] Glucose [Mass/Vol] 90 mg/dL 74-106 [facility] Potassium [Moles/Vol] 4.2 mmol/L 3.5-5.1 [facility] Protein [Mass/Vol] 6.8 g/dL 6.4-8.2 [facility] Sodium [Moles/Vol] 138 mmol/L 136-145 [facility] Bilirubin Test strip Ql (U)O rdered By: Martina Conner on 01-09-2024 Bilirubin Ql (U) Negative Negative [facility] Ketones Test strip Ql (U)Ord ered By: Martina Conner on 01-09-2024 Ketones Ql (U) Negative Negative [facility] - Chemistry and C hemistry - challengeOrdered By: Martina Conner on 01-09-2024 Albumin/Globulin [Mass ratio] 1.3 {ratio} 0.9-2.4 [facility] ALP [Catalytic activity/Vol] 75 U/L 45-117 [facility] ALT [Catalytic activity/Vol] 28 U/L 13-56 [facility] CO2 [Moles/Vol] 27.0 mmol/L 21.0-32.0 [facility] Globulin (S) [Mass/Vol] 3.0 g/dL 2.2-4.2 [facility] Urea nitrogen/Creatinine [Mass ratio] 24.0 mg/mg 10-20 [facility] Nitrite Test strip Ql (U)Ord ered By: Martina Conner on 01-09-2024 Nitrite Ql (U) Negative Negative [facility] No Panel InformationOrdered By: Martina Conner on 01-09-2024 Estimated GFR (MDRD) Amer 83 mL/min >60 [facility] Comment on above: GFR Calc Estimated GFR (MDRD) Non-Af Amer 69 mL/min >60 [facility] Comment on above: Non- GFR Calc Protein Test strip Ql (U)Ord ered By: Martina Conner on 01-09-2024 Protein Ql (U) Negative Negative [facility] Serum or plasma calcium hakan urement (mass/volume)Ordered By: Martina Conner on 01-09-2024 Calcium [Mass/Vol] 9.2 mg/dL 8.5-10.1 [facility] Serum or plasma creatinine m easurement (mass/volume)Ordered By: Martina Conner on 01-09-2024 Creatinine [Mass/Vol] 0.83 mg/dL 0.55-1.02 [facility] Comment on above: The validity of the calculated GFR & GFRAA in patients over 70 years has not been determined. Clinical correlation is essential. Serum or plasma urea nitroge n measurement (mass/volume)Ordered By: Martina Conner on 01-09-2024 Urea nitrogen [Mass/Vol] 20 mg/dL 7-18 [facility] Thin prep Papanicolaou smear with manual screeningOrdered By: aMrtina Conner on 01-09-2024 Thin prep Papanicolaou smear with manual screening 3.8 g/dL 3.2-5.0 [facility] Thin prep Papanicolaou smear with manual screening 31 U/L 15-37 [facility] Thin prep Papanicolaou smear with manual screening 8 5-15 [facility] Urine blood detectionOrdered By: Martina Conner on 01-09-2024 RBC Ql (U) Negative Negative [facility] Urine clarityOrdered By: Juan Conner on 01-09-2024 Clarity (U) Sl. Cloudy Clear [facility] Urine color determinationOrd ered By: Martina Conner on 01-09-2024 Color (U) Yellow Yellow [facility] Urine glucose detectionOrder ed By: Martina Conner on 01-09-2024 Glucose Ql (U) Normal mg/dl Normal [facility] Urine leukocyte esterase det ection by dipstickOrdered By: Martina Conner on 01-09-2024 Leukocyte esterase Test strip Ql (U) 25 /ul Negative [facility] Urine pHOrdered By: Martina Conner on 01-09-2024 pH (U) 7.0 [pH] 5.0 - 8.0 [facility] Urine specific gravity measu rementOrdered By: Martina Conner on 01-09-2024 Specific gravity (U) [Rel density] 1.010 1.002-1.030 [facility] Urine urobilinogen measureme ntOrdered By: Martina Conner on 01-09-2024 Urobilinogen Ql (U) Normal mg/dl Normal [facility] No Panel InformationOrdered By: Martina Conner on 11-15-2023 Free Triiodothyronine (T3) pg/dL 1.8 pg/mL 2.18-3.98 [facility] Serum or plasma thyroid stim ulating hormone (TSH) measurement (units/volume)Ordered By: Martina Conner on 11-15-2023 TSH Qn 1.70 uIU/mL 0.358-3.74 [facility] Thin prep Papanicolaou smear with manual screeningOrdered By: Martina Conner on 11-15-2023 Thin prep Papanicolaou smear with manual screening 1.18 ng/dL 0.76-1.46 [facility] No Panel InformationOrdered By: Martina Conner on 08-03-2023 Thyroid Stimulating Hormone (TSH) 6.25 uIU/mL 0.358-3.74 [facility] Basophil percentageOrdered B y: Martina Conner on 06-26-2023 Bilirubin [Mass/Vol] 1.10 mg/dL 0.20-1.00 [facility] Comment on above: For patients on eltr ombopag therapy, use of Dimension [place] TBIL is not recommended. Chloride [Moles/Vol] 104 mmol/L 98-107 [facility] Cholesterol [Mass/Vol] 178 mg/dL <200 [facility] Comment on above: <200 mg/dL Desirable 200-240 mg/dL Borderline >240 mg/dL High Risk Glucose [Mass/Vol] 83 mg/dL 74-106 [facility] Potassium [Moles/Vol] 3.8 mmol/L 3.5-5.1 [facility] Protein [Mass/Vol] 6.6 g/dL 6.4-8.2 [facility] Sodium [Moles/Vol] 137 mmol/L 136-145 [facility] Triglyceride [Mass/Vol] 44 mg/dL <199 [facility] Comment on above: The drugs N-Acetylcy steine and Metamizole may falsely depress this assay.Serum Triglycerides Reference Interval Normal <150 mg/dL Borderline high 150 - 199 mg/dL High 200 - 499 mg/dL Very High > or = 500 mg/dL Laboratory - Chemistry and C hemistry - challengeOrdered By: Martina Conner on 06-26-2023 ALP [Catalytic activity/Vol] 146 U/L 45-117 [facility] ALT [Catalytic activity/Vol] 30 U/L 13-56 [facility] CO2 [Moles/Vol] 28.0 mmol/L 21.0-32.0 [facility] Free T4 [Mass/Vol] 1.17 ng/dL 0.76-1.46 [facility] Globulin (S) [Mass/Vol] 3.2 g/dL 2.2-4.2 [facility] Urea nitrogen/Creatinine [Mass ratio] 27.7 mg/mg 10-20 [facility] No Panel InformationOrdered By: Martina Conner on 06-26-2023 Estimated GFR (MDRD) Amer 119 mL/min >60 [facility] Comment on above: GFR Calc Estimated GFR (MDRD) Non-Af Amer 99 mL/min >60 [facility] Comment on above: Non- GFR Calc Thyroid Stimulating Hormone (TSH) 6.29 uIU/mL 0.358-3.74 [facility] Serum or plasma albumin hakan urement (mass/volume)Ordered By: Martina Conner on 06-26-2023 Albumin [Mass/Vol] 3.4 g/dL 3.2-5.0 [facility] Serum or plasma albumin/glob ulin mass ratioOrdered By: Martina Conner on 06-26-2023 Albumin/Globulin [Mass ratio] 1.1 {ratio} 0.9-2.4 [facility] Serum or plasma calcium hakan urement (mass/volume)Ordered By: Martina Conner on 06-26-2023 Calcium [Mass/Vol] 8.7 mg/dL 8.5-10.1 [facility] Serum or plasma cholesterol in HDL measurement (mass/volume)Ordered By: Martina Conner on 06-26-2023 Cholesterol in HDL [Mass/Vol] 87 mg/dL >40 [facility] Comment on above: The drugs N-Acetylcy steine and Metamizole may falsely depress this assay. Reference Range HDL <40 mg/dL Low HDL Cholesterol HDL >or= 60 mg/dL High HDL Cholesterol Serum or plasma cholesterol in VLDL measurement (mass/volume)Ordered By: Martina Conner on 06-26-2023 Cholesterol in VLDL [Mass/Vol] 9 mg/dL 5-40 [facility] Serum or plasma creatinine m easurement (mass/volume)Ordered By: Martina Conner on 06-26-2023 Creatinine [Mass/Vol] 0.61 mg/dL 0.55-1.02 [facility] Comment on above: The validity of the calculated GFR & GFRAA in patients over 70 years has not been determined. Clinical correlation is essential. Serum or plasma low density lipoprotein (LDL) cholesterol measurement (mass/volume)Ordered By: Martina Conner on 06-26-2023 Cholesterol in LDL [Mass/Vol] 82 mg/dL 0-130 [facility] Serum or plasma urea nitroge n measurement (mass/volume)Ordered By: Martina Conner on 06-26-2023 Urea nitrogen [Mass/Vol] 17 mg/dL 7-18 [facility] Thin prep Papanicolaou smear with manual screeningOrdered By: Martina Conner on 06-26-2023 Thin prep Papanicolaou smear with manual screening 28 U/L 15-37 [facility] Thin prep Papanicolaou smear with manual screening 5 5-15 [facility] Basophil percentageOrdered B y: Rojas Louis on 05-17-2023 Bilirubin [Mass/Vol] 2.00 mg/dL 0.20-1.00 [facility] Comment on above: For patients on eltr ombopag therapy, use of Dimension [place] TBIL is not recommended. Chloride [Moles/Vol] 101 mmol/L 98-107 [facility] Glucose [Mass/Vol] 70 mg/dL 74-106 [facility] Potassium [Moles/Vol] 3.0 mmol/L 3.5-5.1 [facility] Protein [Mass/Vol] 6.2 g/dL 6.4-8.2 [facility] Sodium [Moles/Vol] 133 mmol/L 136-145 [facility] Laboratory - Chemistry and C hemistry - challengeOrdered By: Rojas Louis on 05-17-2023 ALP [Catalytic activity/Vol] 601 U/L 45-117 [facility] ALT [Catalytic activity/Vol] 78 U/L 13-56 [facility] CO2 [Moles/Vol] 25.0 mmol/L 21.0-32.0 [facility] Globulin (S) [Mass/Vol] 3.9 g/dL 2.2-4.2 [facility] Urea nitrogen/Creatinine [Mass ratio] 17.5 mg/mg 10-20 [facility] No Panel InformationOrdered By: Rojsa Louis on 05-17-2023 Estimated Creatinine Clearance Calc 34.02 ml/min [facility] Estimated GFR (MDRD) Amer 146 mL/min >60 [facility] Comment on above: GFR Calc Estimated GFR (MDRD) Non-Af Amer 121 mL/min >60 [facility] Comment on above: Non- GFR Calc Serum or plasma albumin hakan urement (mass/volume)Ordered By: Rojas Louis on 05-17-2023 Albumin [Mass/Vol] 2.3 g/dL 3.2-5.0 [facility] Serum or plasma albumin/glob ulin mass ratioOrdered By: Rojas Louis on 05-17-2023 Albumin/Globulin [Mass ratio] 0.6 {ratio} 0.9-2.4 [facility] Serum or plasma calcium hakan urement (mass/volume)Ordered By: Rojas Louis on 05-17-2023 Calcium [Mass/Vol] 8.0 mg/dL 8.5-10.1 [facility] Serum or plasma creatinine m easurement (mass/volume)Ordered By: Rojas Louis on 05-17-2023 Creatinine [Mass/Vol] 0.51 mg/dL 0.55-1.02 [facility] Comment on above: The validity of the calculated GFR & GFRAA in patients over 70 years has not been determined. Clinical correlation is essential. Serum or plasma urea nitroge n measurement (mass/volume)Ordered By: Rojas Louis on 05-17-2023 Urea nitrogen [Mass/Vol] 9 mg/dL 7-18 [facility] Thin prep Papanicolaou smear with manual screeningOrdered By: Rojas Louis on 05-17-2023 Thin prep Papanicolaou smear with manual screening 66 U/L 15-37 [facility] Thin prep Papanicolaou smear with manual screening 7 5-15 [facility] Absolute lymphocyte countOrd ered By: Lauren Rivera on 05-15-2023 Lymphocytes Auto (Unsp spec) [#/Vol] 0.77 10*3/uL 0.83-4.51 [facility] Basophil percentageOrdered B y: Lauren Rivera on 05-15-2023 Basophils/100 WBC (Bld) 0.4 % 0-1 [facility] Eosinophils/100 WBC (Bld) 0.1 % 0-5 [facility] Neutrophils (Bld) [#/Vol] 7.9 10*3/uL 2.0-7.7 [facility] Neutrophils/100 WBC (Bld) 81.3 % 47-70 [facility] WBC (Bld) [#/Vol] 9.7 10*3/uL 4.4-11.0 [facility] Blood erythrocytes count (nu mber/volume)Ordered By: Lauren Rivera on 05-15-2023 RBC (Bld) [#/Vol] 3.55 10*6/uL 4.2-5.4 [facility] Blood hemoglobin measurement (mass/volume)Ordered By: Lauren Rivera on 05-15-2023 Hemoglobin (Bld) [Mass/Vol] 11.3 g/dL 12.0-15.0 [facility] Blood lymphocytes/100 leukoc ytesOrdered By: [facility] on [facility]-2023 Lymphocytes/100 WBC (Bld) 7.9 % 19-41 [facility] Blood monocytes/100 leukocyt esOrdered By: [facility] on 05-15-2023 Monocytes/100 WBC (Bld) 8.9 % 0-10 [facility] Blood platelet mean volumeOr dered By: Laurentiesha Rivera on 05-15-2023 Platelet mean volume (Bld) [Entitic vol] 10.1 fL 6.2-12.0 [facility] Determination of erythrocyte mean corpuscular volume (MCV)Ordered By: [facility] on 05-15-2023 MCV (RBC) [Entitic vol] 93.2 fL 81-99 [facility] Hematocrit Auto (Bld) [Volum e fraction]Ordered By: [facility] on 05-15-2023 Hematocrit (Bld) [Volume fraction] 33.1 % 37-47 [facility] - Hematology and Cell countsOrdered By: Laurentiesha Rivera on 05-15-2023 Erythrocyte distribution width (RBC) [Entitic vol] 45.6 fL 35.1-43.9 [facility] Erythrocyte distribution width (RBC) [Ratio] 13.3 % 11.6-14.6 [facility] Immature granulocytes/100 WBC (Bld) 1.400 % 0.0-0.9 [facility] Comment on above: IG% - Immature Granu locytes (promyelocytes, myelocytes and metamyelocytes) > 1% indicates that a LEFT SHIFT is Present. MCH (RBC) [Entitic mass] 31.8 pg 27.0-32.0 [facility] Nucleated RBC/100 WBC (Bld) [Ratio] 0 % 0-5 [facility] MCHC Auto (RBC) [Mass/Vol]Or dered By: Laurentiesha Rivera on 05-15-2023 MCHC (RBC) [Mass/Vol] 34.1 g/dL 32-36 [facility] Platelets bldOrdered By: Vanesa tiesha Miguel on 05-15-2023 Platelets (Bld) [#/Vol] 281 10*3/uL 150-450 [facility] - Chemistry and C hemistry - challengeOrdered By: Lauren Rivera on 05-14-2023 Magnesium [Mass/Vol] 2.0 mg/dL 1.6-2.6 [facility] Absolute lymphocyte countOrd ered By: Marisel Weiner on 05-13-2023 Lymphocytes Auto (Unsp spec) [#/Vol] 0.40 10*3/uL 0.83-4.51 [facility] Basophil percentageOrdered B y: Marisel Weiner on 05-13-2023 Basophil percentage 0 SEEN /hpf 0-5 [facility] Basophils/100 WBC (Bld) 0.3 % 0-1 [facility] Bilirubin [Mass/Vol] 6.20 mg/dL 0.20-1.00 [facility] Comment on above: For patients on eltr ombopag therapy, use of Dimension [place] TBIL is not recommended. Chloride [Moles/Vol] 92 mmol/L 98-107 [facility] Eosinophils/100 WBC (Bld) 2.0 % 0-5 [facility] Glucose [Mass/Vol] 131 mg/dL 74-106 [facility] Comment on above: Fasting Glucose resu lt greater than or equal to 126 mg/dL suggests DIABETES MELLITUS per A.D.A. criteria. Neutrophils (Bld) [#/Vol] 13.5 10*3/uL 2.0-7.7 [facility] Neutrophils/100 WBC (Bld) 90.3 % 47-70 [facility] Potassium [Moles/Vol] 3.9 mmol/L 3.5-5.1 [facility] Protein [Mass/Vol] 7.4 g/dL 6.4-8.2 [facility] Sodium [Moles/Vol] 126 mmol/L 136-145 [facility] WBC (Bld) [#/Vol] 15.0 10*3/uL 4.4-11.0 [facility] Bilirubin Test strip Ql (U)O rdered By: Marisel Weiner on 05-13-2023 Bilirubin Ql (U) 3 mg/dL Negative [facility] Comment on above: COLOR OF URINE MAY A FFECT DIPSTICK RESULTS. Blood erythrocytes count (nu mber/volume)Ordered By: Marisel Weiner on 05-13-2023 RBC (Bld) [#/Vol] 4.29 10*6/uL 4.2-5.4 [facility] Blood hemoglobin measurement (mass/volume)Ordered By: Marisel Weiner on 05-13-2023 Hemoglobin (Bld) [Mass/Vol] 14.2 g/dL 12.0-15.0 [facility] Blood lymphocytes/100 leukoc ytesOrdered By: Marisel Weiner on 05-13-2023 Lymphocytes/100 WBC (Bld) 2.7 % 19-41 [facility] Blood monocytes/100 leukocyt esOrdered By: Marisel Weiner on 05-13-2023 Monocytes/100 WBC (Bld) 4.3 % 0-10 [facility] Blood platelet mean volumeOr dered By: Marisel Weiner on 05-13-2023 Platelet mean volume (Bld) [Entitic vol] 10.3 fL 6.2-12.0 [facility] Determination of erythrocyte mean corpuscular volume (MCV)Ordered By: Marisel Weiner on 05-13-2023 MCV (RBC) [Entitic vol] 90.9 fL 81-99 [facility] Direct bilirubinOrdered By: Marisel Weiner on 05-13-2023 Bilirubin.direct [Mass/Vol] 4.74 mg/dL 0.00-0.30 [facility] Hematocrit Auto (Bld) [Volum e fraction]Ordered By: Marisel Weiner on 05-13-2023 Hematocrit (Bld) [Volume fraction] 39.0 % 37-47 [facility] INR in Blood by Coagulation assayOrdered By: Yang Beck on 05-13-2023 INR Coag (Bld) [Relative time] 1.2 {INR} [facility] Ketones Test strip Ql (U)Ord ered By: Marisel Weiner on 05-13-2023 Ketones Ql (U) 5 mg/dl Negative [facility] - Chemistry and C hemistry - challengeOrdered By: Marisel Weiner on 05-13-2023 ALP [Catalytic activity/Vol] 965 U/L 45-117 [facility] ALT [Catalytic activity/Vol] 111 U/L 13-56 [facility] CO2 [Moles/Vol] 24.0 mmol/L 21.0-32.0 [facility] Globulin (S) [Mass/Vol] 4.4 g/dL 2.2-4.2 [facility] Lipase [Catalytic activity/Vol] 32 U/L 13-75 [facility] Comment on above: Please note:LIPASE r evised reference range effective 23. New Lipase methodology. Expected to produce lower values than the previous assay method. NEW Reference Range: 13 - 75 U/L Urea nitrogen/Creatinine [Mass ratio] 12.8 mg/mg 10-20 [facility] - CoagulationOrde red By: Yang Beck on 05-13-2023 aPTT Coag (Bld) [Time] 32.3 s 24.1-36.2 [facility] PT Coag (PPP) [Time] 14.8 s 11.7-14.9 [facility] Laboratory - Hematology and Cell countsOrdered By: Marisel Weiner on 05-13-2023 Erythrocyte distribution width (RBC) [Entitic vol] 42.6 fL 35.1-43.9 [facility] Erythrocyte distribution width (RBC) [Ratio] 13.0 % 11.6-14.6 [facility] Immature granulocytes/100 WBC (Bld) 0.400 % 0.0-0.9 [facility] Comment on above: IG% - Immature Granu locytes (promyelocytes, myelocytes and metamyelocytes) > 1% indicates that a LEFT SHIFT is Present. MCH (RBC) [Entitic mass] 33.1 pg 27.0-32.0 [facility] Nucleated RBC/100 WBC (Bld) [Ratio] 0 % 0-5 [facility] MCHC Auto (RBC) [Mass/Vol]Or dered By: Marisel Weiner on 05-13-2023 MCHC (RBC) [Mass/Vol] 36.4 g/dL 32-36 [facility] Mucus LM Ql (Urine sed)Order ed By: Marisel Weiner on 05-13-2023 Mucus Ql (Urine sed) 0 SEEN /hpf [facility] Nitrite Test strip Ql (U)Ord ered By: Marisel Weiner on 05-13-2023 Nitrite Ql (U) Negative Negative [facility] No Panel InformationOrdered By: Marisel Weiner on 05-13-2023 Estimated Creatinine Clearance Calc 39.56 ml/min [facility] Estimated GFR (MDRD) Amer 81 mL/min >60 [facility] Comment on above: GFR Calc Estimated GFR (MDRD) Non-Af Amer 67 mL/min >60 [facility] Comment on above: Non- GFR Calc Platelets bldOrdered By: Eloise Weiner on 05-13-2023 Platelets (Bld) [#/Vol] 359 10*3/uL 150-450 [facility] Protein Test strip Ql (U)Ord ered By: Marisel Weiner on 05-13-2023 Protein Ql (U) 30 mg/dl Negative [facility] Serum or plasma albumin hakan urement (mass/volume)Ordered By: Marisel Weiner on 05-13-2023 Albumin [Mass/Vol] 3.0 g/dL 3.2-5.0 [facility] Serum or plasma calcium hakan urement (mass/volume)Ordered By: Marisel Weiner on 05-13-2023 Calcium [Mass/Vol] 9.2 mg/dL 8.5-10.1 [facility] [facility] Serum or plasma creatinine m easurement (mass/volume)Ordered By: Marisel Weiner on 05-13-2023 Creatinine [Mass/Vol] 0.86 mg/dL 0.55-1.02 [facility] Comment on above: The validity of the calculated GFR & GFRAA in patients over 70 years has not been determined. Clinical correlation is essential. Serum or plasma urea nitroge n measurement (mass/volume)Ordered By: Marisel Weiner on 05-13-2023 Urea nitrogen [Mass/Vol] 11 mg/dL 7-18 [facility] Squamous epithelial cells de tection in urine sediment by light microscopyOrdered By: Marisel Weiner on 05-13-2023 Epithelial cells.squamous LM Ql (Urine sed) 0 SEEN /hpf 5-10 [facility] Thin prep Papanicolaou smear with manual screeningOrdered By: Marisel Weiner on 05-13-2023 Thin prep Papanicolaou smear with manual screening 100 U/L 15-37 [facility] Thin prep Papanicolaou smear with manual screening 10 5-15 [facility] Urine blood detectionOrdered By: Marisel Weiner on 05-13-2023 RBC Ql (U) 10 /ul Negative [facility] RBC Ql (U) 0 SEEN /hpf 0-5 [facility] Urine clarityOrdered By: Eloise Weiner on 05-13-2023 Clarity (U) Sl. Cloudy Clear [facility] Urine color determinationOrd ered By: Marisel Weiner on 05-13-2023 Color (U) Yellow Yellow [facility] Urine glucose detectionOrder ed By: Marisel Weiner on 05-13-2023 Glucose Ql (U) Normal mg/dl Normal [facility] Urine leukocyte esterase det ection by dipstickOrdered By: Marisel Weiner on 05-13-2023 Leukocyte esterase Test strip Ql (U) 25 /ul Negative [facility] Urine pHOrdered By: Marisel Weiner on 05-13-2023 pH (U) 7.0 [pH] 5.0 - 8.0 [facility] Urine sediment bacteria coun t by microscopy (number/high power field)Ordered By: Marisel Weiner on 05-13-2023 Bacteria LM.HPF (Urine sed) [#/Area] 0 /[HPF] None Seen [facility] Urine specific gravity measu rementOrdered By: Marisel Weiner on 05-13-2023 Specific gravity (U) [Rel density] 1.010 1.002-1.030 [facility] Urobilinogen Auto test strip Ql (U)Ordered By: Marisel Weiner on 05-13-2023 Urobilinogen Ql (U) 4 mg/dl Normal [facility] Absolute lymphocyte countOrd ered By: Hieu Luis on 05-09-2023 Lymphocytes Auto (Unsp spec) [#/Vol] 0.80 10*3/uL 0.83-4.51 [facility] Basophil percentageOrdered B y: Hieu Luis on 05-09-2023 Basophil percentage 0-5 SEEN /hpf 0-5 [facility] Basophils/100 WBC (Bld) 0.3 % 0-1 [facility] Chloride [Moles/Vol] 99 mmol/L 98-107 [facility] Eosinophils/100 WBC (Bld) 0.0 % 0-5 [facility] Glucose [Mass/Vol] 123 mg/dL 74-106 [facility] Comment on above: Fasting Glucose resu lt from 100 to 125 mg/dL suggests IMPAIRED HOMEOSTASIS per A.D.A. criteria. Neutrophils (Bld) [#/Vol] 10.3 10*3/uL 2.0-7.7 [facility] Neutrophils/100 WBC (Bld) 86.8 % 47-70 [facility] Potassium [Moles/Vol] 4.4 mmol/L 3.5-5.1 [facility] Sodium [Moles/Vol] 132 mmol/L 136-145 [facility] WBC (Bld) [#/Vol] 11.8 10*3/uL 4.4-11.0 [facility] Bilirubin Test strip Ql (U)O rdered By: Hieu Luis on 05-09-2023 Bilirubin Ql (U) 1 mg/dL Negative [facility] Comment on above: COLOR OF URINE MAY A FFECT DIPSTICK RESULTS. Blood erythrocytes count (nu mber/volume)Ordered By: Hieu Luis on 05-09-2023 RBC (Bld) [#/Vol] 3.98 10*6/uL 4.2-5.4 [facility] Blood hemoglobin measurement (mass/volume)Ordered By: Hieu Luis on 05-09-2023 Hemoglobin (Bld) [Mass/Vol] 12.9 g/dL 12.0-15.0 [facility] Blood lymphocytes/100 leukoc ytesOrdered By: Hieu Luis on 05-09-2023 Lymphocytes/100 WBC (Bld) 6.8 % 19-41 [facility] Blood monocytes/100 leukocyt esOrdered By: Hieu Luis on 05-09-2023 Monocytes/100 WBC (Bld) 5.8 % 0-10 [facility] Blood platelet mean volumeOr dered By: Hieu Luis on 05-09-2023 Platelet mean volume (Bld) [Entitic vol] 9.8 fL 6.2-12.0 [facility] Culture, urineOrdered By: Win Luis on 05-09-2023 Bacteria identified Cx Nom (U) Culture exhibits no growth. [facility] Determination of erythrocyte mean corpuscular volume (MCV)Ordered By: Hieu Luis on 05-09-2023 MCV (RBC) [Entitic vol] 93.5 fL 81-99 [facility] Hematocrit Auto (Bld) [Volum e fraction]Ordered By: Hieu Luis on 05-09-2023 Hematocrit (Bld) [Volume fraction] 37.2 % 37-47 [facility] Ketones Test strip Ql (U)Ord ered By: Hieu Luis on 05-09-2023 Ketones Ql (U) Negative Negative [facility] Laboratory - Chemistry and C hemistry - challengeOrdered By: Hieu Luis on 05-09-2023 CO2 [Moles/Vol] 28.0 mmol/L 21.0-32.0 [facility] Urea nitrogen/Creatinine [Mass ratio] 20.3 mg/mg 10-20 [facility] Laboratory - Hematology and Cell countsOrdered By: Hieu Luis on 05-09-2023 Erythrocyte distribution width (RBC) [Entitic vol] 45.4 fL 35.1-43.9 [facility] Erythrocyte distribution width (RBC) [Ratio] 13.2 % 11.6-14.6 [facility] Immature granulocytes/100 WBC (Bld) 0.300 % 0.0-0.9 [facility] Comment on above: IG% - Immature Granu locytes (promyelocytes, myelocytes and metamyelocytes) > 1% indicates that a LEFT SHIFT is Present. MCH (RBC) [Entitic mass] 32.4 pg 27.0-32.0 [facility] Nucleated RBC/100 WBC (Bld) [Ratio] 0 % 0-5 [facility] MCHC Auto (RBC) [Mass/Vol]Or dered By: Hieu Luis on 05-09-2023 MCHC (RBC) [Mass/Vol] 34.7 g/dL 32-36 [facility] Mucus LM Ql (Urine sed)Order ed By: Hieu Luis on 05-09-2023 Mucus Ql (Urine sed) 0 SEEN /hpf [facility] Nitrite Test strip Ql (U)Ord ered By: Hieu Luis on 05-09-2023 Nitrite Ql (U) Negative Negative [facility] No Panel InformationOrdered By: Hieu Luis on 05-09-2023 Estimated Creatinine Clearance Calc 34.02 ml/min [facility] Estimated GFR (MDRD) Amer 89 mL/min >60 [facility] Comment on above: GFR Calc Estimated GFR (MDRD) Non-Af Amer 74 mL/min >60 [facility] Comment on above: Non- GFR Calc Platelets bldOrdered By: Zbigniew Luis on 05-09-2023 Platelets (Bld) [#/Vol] 308 10*3/uL 150-450 [facility] Protein Test strip Ql (U)Ord ered By: Hieu Luis on 05-09-2023 Protein Ql (U) 15 mg/dl Negative [facility] Serum or plasma calcium hakan urement (mass/volume)Ordered By: Hieu Luis on 05-09-2023 Calcium [Mass/Vol] 8.6 mg/dL 8.5-10.1 [facility] Serum or plasma creatinine m easurement (mass/volume)Ordered By: Hieu Luis on 05-09-2023 Creatinine [Mass/Vol] 0.79 mg/dL 0.55-1.02 [facility] Comment on above: The validity of the calculated GFR & GFRAA in patients over 70 years has not been determined. Clinical correlation is essential. Serum or plasma urea nitroge n measurement (mass/volume)Ordered By: Hieu Luis on 05-09-2023 Urea nitrogen [Mass/Vol] 16 mg/dL 7-18 [facility] Squamous epithelial cells de tection in urine sediment by light microscopyOrdered By: Hieu Luis on 05-09-2023 Epithelial cells.squamous LM Ql (Urine sed) 0-5 SEEN /hpf 5-10 [facility] Thin prep Papanicolaou smear with manual screeningOrdered By: Hieu Luis on 05-09-2023 Thin prep Papanicolaou smear with manual screening 5 5-15 [facility] Urine blood detectionOrdered By: Hieu Luis on 05-09-2023 RBC Ql (U) Negative Negative [facility] RBC Ql (U) 0 SEEN /hpf 0-5 [facility] Urine clarityOrdered By: Zbigniew Luis on 05-09-2023 Clarity (U) Sl. Cloudy Clear [facility] Urine color determinationOrd ered By: Hieu Luis on 05-09-2023 Color (U) Jailyn Yellow [facility] Urine glucose detectionOrder ed By: Hieu Luis on 05-09-2023 Glucose Ql (U) Normal mg/dl Normal [facility] Urine leukocyte esterase det ection by dipstickOrdered By: Hieu Luis on 05-09-2023 Leukocyte esterase Test strip Ql (U) 100 /ul Negative [facility] Urine pHOrdered By: Hieu Luis on 05-09-2023 pH (U) 6.5 [pH] 5.0 - 8.0 [facility] Urine sediment bacteria coun t by microscopy (number/high power field)Ordered By: Hieu Luis on 05-09-2023 Bacteria LM.HPF (Urine sed) [#/Area] RARE /hpf None Seen [facility] Urine specific gravity measu rementOrdered By: Hieu Luis on 05-09-2023 Specific gravity (U) [Rel density] 1.010 1.002-1.030 [facility] Urobilinogen Auto test strip Ql (U)Ordered By: Hieu Luis on 05-09-2023 Urobilinogen Ql (U) 1 mg/dl Normal [facility] Absolute lymphocyte countOrd ered By: Martina Conner on 11-18-2022 Lymphocytes Auto (Unsp spec) [#/Vol] 1.00 10*3/uL 0.83-4.51 [facility] Basophil percentageOrdered B y: Martina Conner on 11-18-2022 Basophils/100 WBC (Bld) 1.5 % 0-1 [facility] Eosinophils/100 WBC (Bld) 3.0 % 0-5 [facility] Neutrophils (Bld) [#/Vol] 2.8 10*3/uL 2.0-7.7 [facility] Neutrophils/100 WBC (Bld) 60.1 % 47-70 [facility] WBC (Bld) [#/Vol] 4.6 10*3/uL 4.4-11.0 [facility] Blood erythrocytes count (nu mber/volume)Ordered By: Martina Conner on 11-18-2022 RBC (Bld) [#/Vol] 4.03 10*6/uL 4.2-5.4 [facility] Blood hemoglobin measurement (mass/volume)Ordered By: Martina Conner on 11-18-2022 Hemoglobin (Bld) [Mass/Vol] 13.0 g/dL 12.0-15.0 [facility] Blood lymphocytes/100 leukoc ytesOrdered By: Martina Conner on 11-18-2022 Lymphocytes/100 WBC (Bld) 21.7 % 19-41 [facility] Blood monocytes/100 leukocyt esOrdered By: Martina Conner on 11-18-2022 Monocytes/100 WBC (Bld) 13.5 % 0-10 [facility] Blood platelet mean volumeOr dered By: Martina Conner on 11-18-2022 Platelet mean volume (Bld) [Entitic vol] 10.2 fL 6.2-12.0 [facility] Determination of erythrocyte mean corpuscular volume (MCV)Ordered By: Martina Conner on 11-18-2022 MCV (RBC) [Entitic vol] 94.8 fL 81-99 [facility] Direct bilirubinOrdered By: Martina Conner on 11-18-2022 Bilirubin.direct [Mass/Vol] 0.23 mg/dL 0.00-0.30 [facility] Hematocrit Auto (Bld) [Volum e fraction]Ordered By: Martina Conner on 11-18-2022 Hematocrit (Bld) [Volume fraction] 38.2 % 37-47 [facility] Hemoglobin in reticulocytes (mass per reticulocyte)Ordered By: Martina Conner on 11-18-2022 Hemoglobin (Reticulocytes) [Entitic mass] 37.2 pg 30-35 [facility] - Hematology and Cell countsOrdered By: Martina Conner on 11-18-2022 Erythrocyte distribution width (RBC) [Entitic vol] 42.5 fL 35.1-43.9 [facility] Erythrocyte distribution width (RBC) [Ratio] 12.1 % 11.6-14.6 [facility] Immature granulocytes/100 WBC (Bld) 0.200 % 0.0-0.9 [facility] Comment on above: IG% - Immature Granu locytes (promyelocytes, myelocytes and metamyelocytes) > 1% indicates that a LEFT SHIFT is Present. MCH (RBC) [Entitic mass] 32.3 pg 27.0-32.0 [facility] Nucleated RBC/100 WBC (Bld) [Ratio] 0 % 0-5 [facility] MCHC Auto (RBC) [Mass/Vol]Or dered By: Martina Conner on 11-18-2022 MCHC (RBC) [Mass/Vol] 34.0 g/dL 32-36 [facility] No Panel InformationOrdered By: Martina Conner on 11-18-2022 Immature Reticulocyte Fraction 7.70 % 3.00-15.90 [facility] Reticulocyte Count 1.48 % 0.5-1.5 [facility] Platelets bldOrdered By: Juan Conner on 11-18-2022 Platelets (Bld) [#/Vol] 255 10*3/uL 150-450 [facility] Absolute lymphocyte countOrd ered By: Martina Conner on 11-03-2022 Lymphocytes Auto (Unsp spec) [#/Vol] 1.47 10*3/uL 0.83-4.51 [facility] Basophil percentageOrdered B y: Martina Conner on 11-03-2022 Basophils/100 WBC (Bld) 1.5 % 0-1 [facility] Bilirubin [Mass/Vol] 1.30 mg/dL 0.20-1.00 [facility] Comment on above: For patients on eltr ombopag therapy, use of Dimension [place] TBIL is not recommended. Chloride [Moles/Vol] 103 mmol/L 98-107 [facility] Eosinophils/100 WBC (Bld) 4.6 % 0-5 [facility] Glucose [Mass/Vol] 86 mg/dL 74-106 [facility] Neutrophils (Bld) [#/Vol] 2.2 10*3/uL 2.0-7.7 [facility] Neutrophils/100 WBC (Bld) 48.0 % 47-70 [facility] Potassium [Moles/Vol] 4.1 mmol/L 3.5-5.1 [facility] Protein [Mass/Vol] 7.0 g/dL 6.4-8.2 [facility] Sodium [Moles/Vol] 137 mmol/L 136-145 [facility] WBC (Bld) [#/Vol] 4.6 10*3/uL 4.4-11.0 [facility] Blood erythrocytes count (nu mber/volume)Ordered By: Martina Conner on 11-03-2022 RBC (Bld) [#/Vol] 4.09 10*6/uL 4.2-5.4 [facility] Blood hemoglobin measurement (mass/volume)Ordered By: Martina Conner on 11-03-2022 Hemoglobin (Bld) [Mass/Vol] 13.2 g/dL 12.0-15.0 [facility] Blood lymphocytes/100 leukoc ytesOrdered By: Martina Conner on 11-03-2022 Lymphocytes/100 WBC (Bld) 32.3 % 19-41 [facility] Blood monocytes/100 leukocyt esOrdered By: Martina Conner on 11-03-2022 Monocytes/100 WBC (Bld) 13.4 % 0-10 [facility] Blood platelet mean volumeOr dered By: Martina Conner on 11-03-2022 Platelet mean volume (Bld) [Entitic vol] 10.6 fL 6.2-12.0 [facility] Determination of erythrocyte mean corpuscular volume (MCV)Ordered By: Maritna Conner on 11-03-2022 MCV (RBC) [Entitic vol] 94.4 fL 81-99 [facility] Hematocrit Auto (Bld) [Volum e fraction]Ordered By: Martina Conner on 11-03-2022 Hematocrit (Bld) [Volume fraction] 38.6 % 37-47 [facility] - Chemistry and C hemistry - challengeOrdered By: Martina Conner on 11-03-2022 ALP [Catalytic activity/Vol] 80 U/L 45-117 [facility] ALT [Catalytic activity/Vol] 31 U/L 13-56 [facility] CO2 [Moles/Vol] 30.0 mmol/L 21.0-32.0 [facility] Free T4 [Mass/Vol] 0.93 ng/dL 0.76-1.46 [facility] Globulin (S) [Mass/Vol] 3.3 g/dL 2.2-4.2 [facility] Urea nitrogen/Creatinine [Mass ratio] 21.4 mg/mg 10-20 [facility] - Hematology and Cell countsOrdered By: Martina Conner on 11-03-2022 Erythrocyte distribution width (RBC) [Entitic vol] 42.0 fL 35.1-43.9 [facility] Erythrocyte distribution width (RBC) [Ratio] 12.2 % 11.6-14.6 [facility] Immature granulocytes/100 WBC (Bld) 0.200 % 0.0-0.9 [facility] Comment on above: IG% - Immature Granu locytes (promyelocytes, myelocytes and metamyelocytes) > 1% indicates that a LEFT SHIFT is Present. MCH (RBC) [Entitic mass] 32.3 pg 27.0-32.0 [facility] Nucleated RBC/100 WBC (Bld) [Ratio] 0 % 0-5 [facility] MCHC Auto (RBC) [Mass/Vol]Or dered By: Martina Conner on 11-03-2022 MCHC (RBC) [Mass/Vol] 34.2 g/dL 32-36 [facility] No Panel InformationOrdered By: Martina oCnner on 11-03-2022 Estimated GFR (MDRD) Amer 88 mL/min >60 [facility] Comment on above: GFR Calc Estimated GFR (MDRD) Non-Af Amer 73 mL/min >60 [facility] Comment on above: Non- GFR Calc Thyroid Stimulating Hormone (TSH) 12.50 uIU/mL 0.358-3.74 [facility] Platelets bldOrdered By: Juan Conner on 11-03-2022 Platelets (Bld) [#/Vol] 252 10*3/uL 150-450 [facility] Serum or plasma albumin hakan urement (mass/volume)Ordered By: Martina Conner on 11-03-2022 Albumin [Mass/Vol] 3.7 g/dL 3.2-5.0 [facility] Serum or plasma albumin/glob ulin mass ratioOrdered By: Martina Conner on 11-03-2022 Albumin/Globulin [Mass ratio] 1.1 {ratio} 0.9-2.4 [facility] Serum or plasma calcitriol m easurement (mass/volume)Ordered By: Martina Conner on 11-03-2022 1,25-dihydroxyvitamin D3 [Mass/Vol] 43.4 pg/mL 24.8-81.5 [facility] Comment on above: Performed at: [employer] - [address] [id number] Director: Flaquita Peña MD, Phone: [phone] Serum or plasma calcium hakan urement (mass/volume)Ordered By: Martina Conner on 11-03-2022 Calcium [Mass/Vol] 8.8 mg/dL 8.5-10.1 [facility] Serum or plasma creatinine m easurement (mass/volume)Ordered By: Martina Conner on 11-03-2022 Creatinine [Mass/Vol] 0.80 mg/dL 0.55-1.02 [facility] Comment on above: The validity of the calculated GFR & GFRAA in patients over 70 years has not been determined. Clinical correlation is essential. Serum or plasma urea nitroge n measurement (mass/volume)Ordered By: Martina Conner on 11-03-2022 Urea nitrogen [Mass/Vol] 17 mg/dL 7-18 [facility] Thin prep Papanicolaou smear with manual screeningOrdered By: Martina Conner on 11-03-2022 Thin prep Papanicolaou smear with manual screening 31 U/L 15-37 [facility] Thin prep Papanicolaou smear with manual screening 4 5-15 [facility] Absolute lymphocyte counton 05-02-2022 Lymphocytes Auto (Unsp spec) [#/Vol] 1.25 10*3/uL 0.83-4.51 [facility] Work Phone: Basophil percentageon 2021 Basophils/100 WBC (Bld) 0.8 % 0-1 [facility] Work Phone: Bilirubin [Mass/Vol] 1.10 mg/dL 0.20-1.00 [facility] Work Phone: Comment on above: For patients on eltr ombopag therapy, use of Dimension [place] TBIL is not recommended. Chloride [Moles/Vol] 99 mmol/L 98-107 [facility] Work Phone: Cholesterol [Mass/Vol] 199 mg/dL <200 [facility] Work Phone: Comment on above: <200 mg/dL Desirable 200-240 mg/dL Borderline >240 mg/dL High Risk Eosinophils/100 WBC (Bld) 1.3 % 0-5 [facility] Work Phone: Glucose [Mass/Vol] 84 mg/dL 74-106 [facility] Work Phone: Neutrophils (Bld) [#/Vol] 2.9 10*3/uL 2.0-7.7 [facility] Work Phone: Neutrophils/100 WBC (Bld) 61.1 % 47-70 [facility] Work Phone: Potassium [Moles/Vol] 3.7 mmol/L 3.5-5.1 [facility] Work Phone: Protein [Mass/Vol] 7.5 g/dL 6.4-8.2 [facility] Work Phone: Sodium [Moles/Vol] 135 mmol/L 136-145 [facility] Work Phone: Triglyceride [Mass/Vol] 53 mg/dL <199 [facility] Work Phone: Comment on above: The drugs N-Acetylcy steine and Metamizole may falsely depress this assay.Serum Triglycerides Reference Interval Normal <150 mg/dL Borderline high 150 - 199 mg/dL High 200 - 499 mg/dL Very High > or = 500 mg/dL WBC (Bld) [#/Vol] 4.8 10*3/uL 4.4-11.0 [facility] Work Phone: Blood erythrocytes count (nu mber/volume)on 05-02-2022 RBC (Bld) [#/Vol] 4.19 10*6/uL 4.2-5.4 [facility] Work Phone: Blood hemoglobin measurement (mass/volume)on 05-02-2022 Hemoglobin (Bld) [Mass/Vol] 13.4 g/dL 12.0-15.0 [facility] Work Phone: Blood lymphocytes/100 leukoc yteson 05-02-2022 Lymphocytes/100 WBC (Bld) 26.0 % 19-41 [facility] Work Phone: Blood monocytes/100 leukocyt eson 05-02-2022 Monocytes/100 WBC (Bld) 10.6 % 0-10 [facility] Work Phone: Blood platelet mean volumeon 05-02-2022 Platelet mean volume (Bld) [Entitic vol] 10.8 fL 6.2-12.0 [facility] Work Phone: Determination of erythrocyte mean corpuscular volume (MCV)on 05-02-2022 MCV (RBC) [Entitic vol] 91.9 fL 81-99 [facility] Work Phone: Hematocrit Auto (Bld) [Volum e fraction]on 05-02-2022 Hematocrit (Bld) [Volume fraction] 38.5 % 37-47 [facility] Work Phone: Laboratory - Chemistry and C hemistry - challengeon 05-02-2022 ALP [Catalytic activity/Vol] 78 U/L 45-117 [facility] Work Phone: ALT [Catalytic activity/Vol] 29 U/L 13-56 [facility] Work Phone: CO2 [Moles/Vol] 28.0 mmol/L 21.0-32.0 [facility] Work Phone: Globulin (S) [Mass/Vol] 3.6 g/dL 2.2-4.2 [facility] Work Phone: Urea nitrogen/Creatinine [Mass ratio] 15.1 mg/mg 10-20 [facility] Work Phone: Laboratory - Hematology and Cell countson 05-02-2022 Erythrocyte distribution width (RBC) [Entitic vol] 41.1 fL 35.1-43.9 [facility] Work Phone: Erythrocyte distribution width (RBC) [Ratio] 12.2 % 11.6-14.6 [facility] Work Phone: Immature granulocytes/100 WBC (Bld) 0.200 % 0.0-0.9 [facility] Work Phone: Comment on above: IG% - Immature Granu locytes (promyelocytes, myelocytes and metamyelocytes) > 1% indicates that a LEFT SHIFT is Present. MCH (RBC) [Entitic mass] 32.0 pg 27.0-32.0 [facility] Work Phone: Nucleated RBC/100 WBC (Bld) [Ratio] 0 % 0-5 [facility] Work Phone: MCHC Auto (RBC) [Mass/Vol]on 05-02-2022 MCHC (RBC) [Mass/Vol] 34.8 g/dL 32-36 [facility] Work Phone: No Panel Informationon 05-02 Estimated GFR (MDRD) Amer 110 mL/min >60 [facility] Work Phone: Comment on above: GFR Calc Estimated GFR (MDRD) Non-Af Amer 91 mL/min >60 [facility] Work Phone: Comment on above: Non- GFR Calc Thyroid Stimulating Hormone (TSH) 1.50 uIU/mL 0.358-3.74 [facility] Work Phone: Platelets bldon 05-02-2022 Platelets (Bld) [#/Vol] 252 10*3/uL 150-450 [facility] Work Phone: Serum or plasma albumin hakan urement (mass/volume)on 05-02-2022 Albumin [Mass/Vol] 3.9 g/dL 3.2-5.0 [facility] Work Phone: Serum or plasma albumin/glob ulin mass ratioon 05-02-2022 Albumin/Globulin [Mass ratio] 1.1 {ratio} 0.9-2.4 [facility] Work Phone: Serum or plasma calcium hakan urement (mass/volume)on 05-02-2022 Calcium [Mass/Vol] 9.1 mg/dL 8.5-10.1 [facility] Work Phone: Serum or plasma cholesterol in HDL measurement (mass/volume)on 05-02-2022 Cholesterol in HDL [Mass/Vol] 96 mg/dL >40 [facility] Work Phone: Comment on above: The drugs N-Acetylcy steine and Metamizole may falsely depress this assay. Reference Range HDL <40 mg/dL Low HDL Cholesterol HDL >or= 60 mg/dL High HDL Cholesterol Serum or plasma cholesterol in VLDL measurement (mass/volume)on 05-02-2022 Cholesterol in VLDL [Mass/Vol] 11 mg/dL 5-40 [facility] Work Phone: Serum or plasma creatinine m easurement (mass/volume)on 05-02-2022 Creatinine [Mass/Vol] 0.66 mg/dL 0.55-1.02 [facility] Work Phone: Comment on above: The validity of the calculated GFR & GFRAA in patients over 70 years has not been determined. Clinical correlation is essential. Serum or plasma low density lipoprotein (LDL) cholesterol measurement (mass/volume)on 05-02-2022 Cholesterol in LDL [Mass/Vol] 92 mg/dL 0-130 [facility] Work Phone: Serum or plasma urea nitroge n measurement (mass/volume)on 05-02-2022 Urea nitrogen [Mass/Vol] 10 mg/dL 7-18 [facility] Work Phone: Thin prep Papanicolaou smear with manual screeningon 05-02-2022 Thin prep Papanicolaou smear with manual screening 29 U/L 15-37 [facility] Work Phone: Thin prep Papanicolaou smear with manual screening 8 5-15 [facility] Work Phone: 24 hour urine alpha 2 globul in/total protein ratio by electrophoresis (mass fraction)on 01-14-2022 Alpha 2 globulin Elph (24H U) [Mass fraction] 11.7 % . [facility] Work Phone: 24 hour urine beta globulin/ total protein ratio by electrophoresis (mass fraction)on 01-14-2022 Beta globulin Elph (24H U) [Mass fraction] 17.2 % . [facility] Work Phone: 24 hour urine gamma globulin /total protein ratio by electrophoresis (mass fraction)on 01-14-2022 Gamma globulin Elph (24H U) [Mass fraction] 8.1 % . [facility] Work Phone: Absolute lymphocyte counton 01-14-2022 Lymphocytes Auto (Unsp spec) [#/Vol] 1.47 10*3/uL 0.83-4.51 [facility] Work Phone: Basophil percentageon 2021 Basophil percentage Comment . [facility] Work Phone: Comment on above: No monoclonality det ected.Performed at: [facility] [address] [id number] Director: Lul Hassan PhD, Phone: [phone] Basophils/100 WBC (Bld) 1.6 % 0-1 [facility] Work Phone: Eosinophils/100 WBC (Bld) 1.8 % 0-5 [facility] Work Phone: Neutrophils (Bld) [#/Vol] 3.3 10*3/uL 2.0-7.7 [facility] Work Phone: Neutrophils/100 WBC (Bld) 59.1 % 47-70 [facility] Work Phone: WBC (Bld) [#/Vol] 5.5 10*3/uL 4.4-11.0 [facility] Work Phone: Blood erythrocytes count (nu mber/volume)on 01-14-2022 RBC (Bld) [#/Vol] 3.96 10*6/uL 4.2-5.4 [facility] Work Phone: Blood hemoglobin measurement (mass/volume)on 01-14-2022 Hemoglobin (Bld) [Mass/Vol] 12.9 g/dL 12.0-15.0 [facility] Work Phone: Blood lymphocytes/100 leukoc yteson 01-14-2022 Lymphocytes/100 WBC (Bld) 26.7 % 19-41 [facility] Work Phone: Blood monocytes/100 leukocyt eson 01-14-2022 Monocytes/100 WBC (Bld) 10.4 % 0-10 [facility] Work Phone: Blood platelet mean volumeon 01-14-2022 Platelet mean volume (Bld) [Entitic vol] 9.5 fL 6.2-12.0 [facility] Work Phone: Determination of erythrocyte mean corpuscular volume (MCV)on 01-14-2022 MCV (RBC) [Entitic vol] 92.2 fL 81-99 [facility] Work Phone: Hematocrit Auto (Bld) [Volum e fraction]on 01-14-2022 Hematocrit (Bld) [Volume fraction] 36.5 % 37-47 [facility] Work Phone: Laboratory - Chemistry and C hemistry - challengeon 01-14-2022 Albumin [Mass/Vol] 3.7 g/dL 2.9-4.4 [facility] Work Phone: Laboratory - Hematology and Cell countson 01-14-2022 Erythrocyte distribution width (RBC) [Entitic vol] 40.4 fL 35.1-43.9 [facility] Work Phone: Erythrocyte distribution width (RBC) [Ratio] 11.9 % 11.6-14.6 [facility] Health Work Phone: Immature granulocytes/100 WBC (Bld) 0.400 % 0.0-0.9 [facility] Work Phone: Comment on above: IG% - Immature Granu locytes (promyelocytes, myelocytes and metamyelocytes) > 1% indicates that a LEFT SHIFT is Present. MCH (RBC) [Entitic mass] 32.6 pg 27.0-32.0 [facility] Work Phone: Nucleated RBC/100 WBC (Bld) [Ratio] 0 % 0-5 [facility] Work Phone: MCHC Auto (RBC) [Mass/Vol]on 01-14-2022 MCHC (RBC) [Mass/Vol] 35.3 g/dL 32-36 [facility] Work Phone: No Panel Informationon 01-14 Addendum Document Comment . [facility] Work Phone: Comment on above: The SPE pattern appe ars unremarkable. Evidence ofmonoclonal protein is not apparent. Eavrr-7-Cswpzqslw 0.2 g/dL 0.0-0.4 [facility] Work Phone: Edrdl-7-Kmzvuagej 0.7 g/dL 0.4-1.0 [facility] Work Phone: Free Lambda Light Chains, Quant 13.9 mg/L 5.7-26.3 [facility] Work Phone: Gamma Globulins 0.8 g/dL 0.4-1.8 [facility] Work Phone: Serum Immunofixation Comment . [facility] Work Phone: Comment on above: No monoclonality det ected. Urine Immunofixation PEP Note Comment . [facility] Work Phone: Comment on above: Protein electrophore sis scan will follow via computer,mail, or retirement manager delivery. Platelets bldon 01-14-2022 Platelets (Bld) [#/Vol] 248 10*3/uL 150-450 [facility] Work Phone: Protein Fractions Elph [Inte rp]on 01-14-2022 Protein Fractions [Interp] Comment . [facility] Work Phone: Comment on above: Protein electrophore sis scan will follow via computer,mail, or retirement manager delivery. Serum albumin to globulin ra pavan by protein electrophoresison 01-14-2022 Albumin/Globulin Elph [Mass ratio] 1.4 0.7-1.7 [facility] Work Phone: Serum globulin measurement ( mass/volume)on 01-14-2022 Globulin (S) [Mass/Vol] 2.6 g/dL 2.2-3.9 [facility] Work Phone: Serum immunoglobulin kappa l ight chains/immunoglobulin lambda light chains mass ratioon 01-14-2022 Immunoglobulin light chains.kappa/Immunoglo bulin light chains.lambda (S) [Mass ratio] 1.61 0.26-1.65 [facility] Work Phone: Serum or plasma IgA measurem ent (mass/volume)on 01-14-2022 IgA [Mass/Vol] 244 mg/dL 64-422 [facility] Work Phone: Serum or plasma IgG measurem ent (mass/volume)on 01-14-2022 IgG [Mass/Vol] 930 mg/dL 586-1602 [facility] Work Phone: Serum or plasma IgM measurem ent (mass/volume)on 01-14-2022 IgM [Mass/Vol] 86 mg/dL 26-217 [facility] Work Phone: Serum or plasma beta globuli n measurement by electrophoresis (mass/volume)on 01-14-2022 Beta globulin Elph [Mass/Vol] 0.9 g/dL 0.7-1.3 [facility] Work Phone: Serum or plasma immunoglobul in kappa light chains measurement (mass/volume)on 01-14-2022 Immunoglobulin light chains.kappa [Mass/Vol] 22.4 mg/L 3.3-19.4 [facility] Work Phone: Thin prep Papanicolaou smear with manual screeningon 01-14-2022 Thin prep Papanicolaou smear with manual screening See comment [facility] Work Phone: Comment on above: Result: Not Observed Total protein bloodon 2021 Protein [Mass/Vol] 6.3 g/dL 6.0-8.5 [facility] Work Phone: Urine albumin/total protein mass ratio by electrophoresison 01-14-2022 Albumin Elph (U) [Mass fraction] 59.5 % . [facility] Work Phone: Urine alpha 1 globulin/total protein ratio by electrophoresis (mass fraction)on 01-14-2022 Alpha 1 globulin Elph (U) [Mass fraction] 3.5 % . [facility] Work Phone: Urine monoclonal protein/tot al protein mass ratio by electrophoresison 01-14-2022 Protein.monoclonal Elph (U) [Mass fraction] See comment [facility] Work Phone: Comment on above: Result: Not Observed Urine protein measurement (m ass/volume)on 01-14-2022 Protein (U) [Mass/Vol] 6.5 mg/dL Not Estab. [facility] Work Phone: Absolute lymphocyte counton 01-07-2022 Lymphocytes Auto (Unsp spec) [#/Vol] 1.22 10*3/uL 0.83-4.51 [facility] Work Phone: Basophil percentageon 2021 Basophils/100 WBC (Bld) 1.4 % 0-1 [facility] Work Phone: Chloride [Moles/Vol] 102 mmol/L 98-107 [facility] Work Phone: Eosinophils/100 WBC (Bld) 1.4 % 0-5 [facility] Work Phone: Glucose [Mass/Vol] 99 mg/dL 74-106 [facility] Work Phone: Neutrophils (Bld) [#/Vol] 2.9 10*3/uL 2.0-7.7 [facility] Work Phone: Neutrophils/100 WBC (Bld) 58.8 % 47-70 [facility] Work Phone: Potassium [Moles/Vol] 4.0 mmol/L 3.5-5.1 [facility] Work [facility]: Sodium [Moles/Vol] 136 mmol/L 136-145 [facility] Work Phone: WBC (Bld) [#/Vol] 4.9 10*3/uL 4.4-11.0 [facility] Work Phone: Blood erythrocytes count (nu mber/volume)on 01-07-2022 RBC (Bld) [#/Vol] 4.17 10*6/uL 4.2-5.4 [facility] Work Phone: Blood hemoglobin measurement (mass/volume)on 01-07-2022 Hemoglobin (Bld) [Mass/Vol] 13.6 g/dL 12.0-15.0 [facility] Work Phone: Blood lymphocytes/100 leukoc yteson 01-07-2022 Lymphocytes/100 WBC (Bld) 24.8 % 19-41 [facility] Work Phone: Blood monocytes/100 leukocyt eson 01-07-2022 Monocytes/100 WBC (Bld) 13.4 % 0-10 [facility] Work Phone: Blood platelet mean volumeon 01-07-2022 Platelet mean volume (Bld) [Entitic vol] 11.1 fL 6.2-12.0 [facility] Work Phone: Determination of erythrocyte mean corpuscular volume (MCV)on 01-07-2022 MCV (RBC) [Entitic vol] 92.1 fL 81-99 [facility] Work Phone: Hematocrit Auto (Bld) [Volum e fraction]on 01-07-2022 Hematocrit (Bld) [Volume fraction] 38.4 % 37-47 [facility] Work Phone: Laboratory - Chemistry and C hemistry - challengeon 01-07-2022 CO2 [Moles/Vol] 29.0 mmol/L 21.0-32.0 [facility] Work Phone: Urea nitrogen/Creatinine [Mass ratio] 21.7 mg/mg 10-20 [facility] Work Phone: Laboratory - Hematology and Cell countson 01-07-2022 Erythrocyte distribution width (RBC) [Entitic vol] 40.8 fL 35.1-43.9 [facility] Work Phone: Erythrocyte distribution width (RBC) [Ratio] 12.1 % 11.6-14.6 [facility] Work Phone: Immature granulocytes/100 WBC (Bld) 0.200 % 0.0-0.9 [facility] Work Phone: Comment on above: IG% - Immature Granu locytes (promyelocytes, myelocytes and metamyelocytes) > 1% indicates that a LEFT SHIFT is Present. MCH (RBC) [Entitic mass] 32.6 pg 27.0-32.0 [facility] Work Phone: Nucleated RBC/100 WBC (Bld) [Ratio] 0 % 0-5 [facility] Work Phone: MCHC Auto (RBC) [Mass/Vol]on 01-07-2022 MCHC (RBC) [Mass/Vol] 35.4 g/dL 32-36 [facility] Work Phone: No Panel Informationon 01-07 Estimated GFR (MDRD) Amer 90 mL/min >60 [facility] Work Phone: Comment on above: GFR Calc Estimated GFR (MDRD) Non-Af Amer 74 mL/min >60 [facility] Work Phone: Comment on above: Non- GFR Calc Thyroid Stimulating Hormone (TSH) 3.91 uIU/mL 0.358-3.74 [facility] Work Phone: Platelets bldon 01-07-2022 Platelets (Bld) [#/Vol] 272 10*3/uL 150-450 [facility] Work Phone: Serum or plasma calcium hakan urement (mass/volume)on 01-07-2022 Calcium [Mass/Vol] 9.6 mg/dL 8.5-10.1 [facility] Work Phone: Serum or plasma creatinine m easurement (mass/volume)on 01-07-2022 Creatinine [Mass/Vol] 0.78 mg/dL 0.55-1.02 [facility] Work Phone: Comment on above: The validity of the calculated GFR & GFRAA in patients over 70 years has not been determined. Clinical correlation is essential. Serum or plasma urea nitroge n measurement (mass/volume)on 01-07-2022 Urea nitrogen [Mass/Vol] 17 mg/dL 7-18 [facility] Work Phone: Thin prep Papanicolaou smear with manual screeningon 01-07-2022 Thin prep Papanicolaou smear with manual screening 5 5-15 [facility] Work Phone: No Panel Informationon 11-10 Thyroid Stimulating Hormone (TSH) 3.42 uIU/mL 0.358-3.74 [facility] Work Phone: No Panel Informationon 09-29 Thyroid Stimulating Hormone (TSH) 0.66 uIU/mL 0.358-3.74 [facility] Work Phone: TSH (THYROID STIMULATING HOR ANI) ([id number])Ordered By: Toolmaker on 04-07-2020 TSH Qn 0.349 {uIU/mL} Abnormal 0.450-4.500 [facility] Work Phone: Comment on above: PATIENT NOT FASTINGP ERFORMED BY: [facility] HospitalQlfdst1704 [facility] [id number] ANES Usman 03-08-2019 ANES POST HNO ID: [id number] Author: Ysair Wyatt Service: Anesthesiology Author Type: Anesthesiologist Type: Anesthesia PostOp Filed: 03/08/2019 2:13 PM Note Text: POST ANESTHESIA EVALUATION NOTE SERVICE DATE: 03/08/2019 SERVICE TIME: 1330 : 1940 Vitals: 03/08/19 1158 03/08/19 1304 Temp: 36.8 ?C (98.2 ?F) 36.3 ?C (97.3 ?F) 03/08/19 1158 03/08/19 1304 03/08/19 1318 BP: 154/77 117/62 124/77 03/08/19 1158 03/08/19 1304 03/08/19 1318 Pulse: 84 89 89 03/08/19 1158 03/08/19 1304 03/08/19 1318 Resp: 03/08/19 1158 03/08/19 1304 03/08/19 1318 SpO2: 100% 100% 100% Validated Vital Signs: yes POST ANES STATUS: No apparent anesthetic complications. The patient is appropriately hydrated with stable respiratory and cardiovascular status. Patient has safe and adequate airway control. The patient has appropriate pain relief and no significant post operative nausea or vomiting. The patient has achieved baseline mental status. Further assessment by Anesthesia Service: None Other Remarks: SIGNATURE: Yasir Wyatt MD PATIENT NAME: Jena Cota DATE: March 08, 2019 TIME: 2:13 PM PAGER/CONTACT #: [phone] [facility] ANES PREOPon 03-08-2019 ANES PREOP HNO ID: [id number] Author: Yasir Wyatt Service: Anesthesiology Author Type: Anesthesiologist Type: Anesthesia PreOp Filed: 03/08/2019 12:22 PM Note Text: ANESTHESIOLOGY DAY OF SURGERY NOTE SERVICE DATE: 03/08/2019 SERVICE TIME: 12:21 PM : 1940 Procedure(s) (LRB): REPAIR OF ENTROPION, TARSAL WEDGE EXTENSIVE (Left) Surgeon(s): Jalen Rausch Estimated body mass index is 20.44 kg/m? as calculated from the following: Height as of this encounter: 163.2 cm (5' 4.25). Weight as of this encounter: 54.4 kg (120 lb). 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 Current Outpatient Medications on File Prior to Encounter: amlodipine besylate (NORVASC ORAL) Take by mouth once daily. LEVOTHYROXINE 100 mcg ORAL tablet Take 100 mcg by mouth once daily. alendronate 70 mg ORAL tablet Take 70 mg by mouth once each week. CALCIUM CARBONATE/VITAMIN D3 (CALCIUM 600 + D ORAL) Take 1 tablet by mouth once daily. VITAMIN B COMPLEX (SUPER B COMPLEX ORAL) Take 1 tablet by mouth once daily. DOCOSAHEXANOIC ACID/EPA (FISH OIL ORAL) Take 1 capsule by mouth once daily. MULTI-VITAMIN ORAL Take 1 tablet by mouth once daily. CALCIUM CARBONATE, [id number], (TUMS ORAL) Take 1-2 tablets daily as needed. ASPIRIN/ACETAMINOPHEN/C AFFEINE (EXCEDRIN EXTRA STRENGTH ORAL) as necessary PEG 400-Propylene Glycol (SYSTANE) 0.4-0.3 % OPHTHALMIC Drop as necessary desoximetasone 0.25 % TOPICAL Oint as necessary Current Facility-Administered Medications Medication Dose Route Frequency Provider Last Rate Last Dose - lactated ringers infusion 30 mL/hr INTRAVENOUS CONTINUOUS Jalen Hatfieldastro 30 mL/hr at 03/08/19 1200 30 mL/hr at 03/08/19 1200 Allergies: ALLERGIES Allergen Reactions - Sulfa (Sulfonamide * Rash DOS EXAM: Adequate NPO Status: Yes Anesthetic Risks, Benefits, Alternatives, Personnel and Consent Discussed: Yes Patient agrees to proceed: Yes Previous Anesthesia: No history of adverse event Airway Assessment: MP 2; Neck ROM: Full ROM without neurologic symptoms; Airway Evaluation: No significant abnormalities Symptoms of Sleep Apnea: None Dentition: Teeth intact Additional Physical Exam: Lungs: Patient health status unchanged since recent history and physical. See history and physical for exam findings. Cardiac: Patient health status unchanged since recent history and physical. See history and physical for exam findings. Additional Pertinent Findings: N/A Blood Products: Not anticipated for this procedure Anesthetic Plan: MAC with general as back up Anesthetic Monitoring: Standard ASA Monitors Pain Management Plan: Parenteral or Oral ASA Class: 3 Other Medical Problems: Pt denies HLD Chronic Beta Gorge medication administered within 24 hours: N/A I have interviewed and examined the patient. I have reviewed the medical record and/or the pre-anesthesia evaluation, pertinent labs, and test results. Significant changes in the patient's condition since the History and Physical, not otherwise documented in primary service progress notes: No This contains updated information obtained within 48 hours of Surgery/Procedure. SIGNATURE: Yasir Wyatt MD PATIENT NAME: Jena Cota DATE: March 08, 2019 TIME: 12:21 PM CSN: [id number] [facility] ANES PREOP HNO ID: [id number] Author: Yasir Wyatt Service: Anesthesiology Author Type: Anesthesiologist Type: Anesthesia PreOp Filed: 03/08/2019 11:57 AM Note Text: ANESTHESIOLOGY DAY OF SURGERY NOTE SERVICE DATE: 03/08/2019 SERVICE TIME: 11:56 AM : 1940 Procedure(s) (LRB): REPAIR OF ENTROPION, TARSAL WEDGE EXTENSIVE (Left) Surgeon(s): Jalen Rausch Estimated body mass index is 20.93 kg/m? as calculated from the following: Height as of 03/09/11: 161.9 cm (5' 3.75). Weight as of 03/09/11: 54.9 kg (121 lb). Most recent hematocrit and potassium results: No results found for this basename: HCT,HEMATOCRIT,K,POTASS IUM ANES DOS/PREOP NOTE: Vitals: There were no vitals filed for this visit. 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 Current Outpatient Medications on File Prior to Encounter: alendronate 70 mg ORAL tablet Take 70 mg by mouth once each week. CALCIUM CARBONATE/VITAMIN D3 (CALCIUM 600 + D ORAL) Take 1 tablet by mouth once daily. VITAMIN B COMPLEX (SUPER B COMPLEX ORAL) Take 1 tablet by mouth once daily. DOCOSAHEXANOIC ACID/EPA (FISH OIL ORAL) Take 1 capsule by mouth once daily. MULTI-VITAMIN ORAL Take 1 tablet by mouth once daily. CALCIUM CARBONATE, [id number], (TUMS ORAL) Take 1-2 tablets daily as needed. ASPIRIN/ACETAMINOPHEN/C AFFEINE (EXCEDRIN EXTRA STRENGTH ORAL) as necessary PEG 400-Propylene Glycol (SYSTANE) 0.4-0.3 % OPHTHALMIC Drop as necessary desoximetasone 0.25 % TOPICAL Oint as necessary LEVOTHYROXINE 100 mcg ORAL tablet Take 100 mcg by mouth once daily. Current Facility-Administered Medications Medication Dose Route Frequency Provider Last Rate Last Dose - lactated ringers infusion 30 mL/hr INTRAVENOUS CONTINUOUS Jalen Rausch Allergies: ALLERGIES Allergen Reactions - Sulfa (Sulfonamide * Rash DOS EXAM: Adequate NPO Status: Yes Anesthetic Risks, Benefits, Alternatives, Personnel and Consent Discussed: Yes Patient agrees to proceed: Yes Previous Anesthesia: No history of adverse event Airway Assessment: MP 2; Neck ROM: Full ROM without neurologic symptoms; Airway Evaluation: No significant abnormalities Symptoms of Sleep Apnea: None Dentition: Teeth intact Additional Physical Exam: Lungs: Patient health status unchanged since recent history and physical. See history and physical for exam findings. Cardiac: Patient health status unchanged since recent history and physical. See history and physical for exam findings. Additional Pertinent Findings: N/A Blood Products: Not anticipated for this procedure Anesthetic Plan: MAC with general as back up Anesthetic Monitoring: Standard ASA Monitors Pain Management Plan: Parenteral or Oral ASA Class: 3 Other Medical Problems: None Chronic Beta Gorge medication administered within 24 hours: N/A I have interviewed and examined the patient. I have reviewed the medical record and/or the pre-anesthesia evaluation, pertinent labs, and test results. Significant changes in the patient's condition since the History and Physical, not otherwise documented in primary service progress notes: No This contains updated information obtained within 48 hours of Surgery/Procedure. SIGNATURE: Yasir Wyatt MD PATIENT NAME: Jena Cota DATE: March 08, 2019 TIME: 11:56 AM CSN: [id number] [facility] HISTORY PHYSICALon 9 HISTORY PHYSICAL HNO ID: [id number] Author: Jalen Rausch Service: Ophthalmology Author Type: Physician Type: HANDP Filed: 03/08/2019 12:10 PM Note Text: UPDATED HISTORY AND PHYSICAL EXAMINATION SERVICE DATE: 03/08/2019 SERVICE TIME: 12:09 PM PHYSICAL EXAM MUST BE COMPLETED ON ADMISSION The History and Physical (completed in the past 30 days) has been reviewed and the patient has been examined. The contents accurately reflect the patient's condition with the following additions or revisions since the HANDP was completed. Examination indicates no changes. This HANDP can be found in the scanned documents dated 02/27/19. SIGNATURE: Jalen Rausch MD PATIENT NAME: Jena Cota DATE: March 08, 2019 TIME: 12:09 PM PAGER: [facility] OPERATIVE NOon 03-08-2019 OPERATIVE NO HNO ID: [id number] Author: Jalen Rausch Service: Ophthalmology Author Type: Physician Type: Operative Report Filed: 03/08/2019 1:01 PM Note Text: OPERATIVE/PROCEDURE REPORT OPHTHAMOLOGY LOG ID: [id number] Surgery/Procedure Date: 03/08/2019 Incision/Procedure Start Time: 12:44 PM Incision Close/Procedure End Time: 12:59 PM Surgeon(s)/Proceduralis t(s) and Carburetor Specialist(s): Surgeon(s) and Role: * Jalen Rausch - Primary Procedure(s): Procedure(s) (LRB): REPAIR OF ENTROPION, TARSAL WEDGE EXTENSIVE (Left) Preoperative Diagnosis: Entropion of left lower eyelid [H02.005] Postoperative Diagnosis: Entropion of left lower eyelid [H02.005] Operative Indications: tearing Anesthesia: Monitored Anesthesia Care Procedure Details: The patient was brought in the operating room, placed under adequate local anesthesia, the face prepped and draped in the usual sterile fashion for eye surgery. Canthotomy cantholysis was performed. A tarsal strip was fashioned and secured using a 4-0 Polydek suture. A transconjunctival incision was made and dissection was carried out to the level of the lower lid retractors, which were identified. The inferior eyelid orbicularis was cauterized extensively. The lower lid retractors were reattached to the inferior border of the tarsus using a 6-0 Prolene. The conjunctiva was closed with 7-0 Vicryl and the tarsal strip was attached to the orbital rim using a 4-0 Polydek suture. The incision temporally was closed using interrupted sutures of 7-0 Vicryl. Antibiotic ointment was placed on the eye. The patient was returned to the recovery room in satisfactory condition. Estimated Blood Loss: Minimal unless noted here. Specimens: * No specimens in log * Implantable Devices: * No implants in log * Drains: None unless noted here. Complications: None I performed the entire procedure. SIGNATURE: Jalen Rausch MD PATIENT NAME: Jena Cota DATE: March 08, 2019 TIME: 1:00 PM PAGER/CONTACT #: [facility] Blood Glucose , Office ([phone])Ordered By: Kellie Mitchell on 03-01-2019 Glucose Glucometer molar conc (dC) 86 1 Normal [facility] Work Phone: Comment on above: ate 3h ago URINE ERIKA [place]ULTURE[place]IF[place] ([id number])Ordered By: Toolmaker on 03-01-2019 Bacteria identified Cx Nom (U) Final report Normal [facility] Work Phone: Comment on above: PATIENT NOT FASTINGP ERFORMED BY: [id number] [facility] [id number] Information: SRC:UC Bacteria identified Cx Nom (U) [id number] Normal [facility] Work Phone: Comment on above: No growth in 36 - 48 hours. PATIENT NOT FASTINGP ERFORMED BY: [facility]eventum6370 [facility] [id number] Information: SRC: URINE ERIKA CULTURE-IDENTIFICA [place] ([id number])Ordered By: Toolmaker on 02-27-2019 Bacteria identified Cx Nom (U) Final report Abnormal [facility] Work Phone: Comment on above: PATIENT NOT FASTINGP ERFORMED BY: GABRIELA RANK PRODUCTIONSSainte Genevieve County Memorial HospitalPjnizx0944 [facility] [id number] Information: SRC:RORO Bacteria identified Cx Nom (U) Escherichia coli Abnormal [facility] Work Phone: Comment on above: 1,000 Colonies/mLCef azolin <=4 ug/mLCefazolin with an DANIEL <=16 predicts susceptibility to the oral agentscefaclor, cefdinir, cefpodoxime, cefprozil, cefuroxime, cephalexin,and loracarbef when used for therapy of uncomplicated urinary tractinfections due to E. coli, Klebsiella pneumoniae, and Proteusmirabilis. PATIENT NOT FASTINGP ERFORMED BY: GABRIELA [facility] [id number] [facility] [id number] Information: SRC:RORO Bacteria identified Cx Nom (U) Enterococcus faecalis Abnormal Comprehens [facility]o [facility] Work Phone: Comment on above: 2,000 Colonies/mLNot e: this isolate is vancomycin-susceptible.This information is provided for epidemiologic purposes only:vancomycin is not among the antibiotics recommended for therapyof urinary tract infections caused by Enterococcus.For Enterococcus species, aminoglycosides (except for high-levelresistance screening), cephalosporins, clindamycin, andtrimethoprim-sulfamethoxazole are not effective clinically.(CLSI, R869-D41, 2016) PATIENT NOT FASTINGP ERFORMED BY: [facility]6370 [facility] [id number] Information: SRC:RORO Other Antibiotic [facility] prehensive [facility] Work Phone: Comment on above: S = Susceptible; I = Intermediate; R = Resistant P = Positive; N = Negative MICS are expressed in micrograms per mL Antibiotic RSLT#1 RSLT#2 RSLT#3 RSLT#4Amoxicillin/Clavulanic Acid SAmpicillin SCefepime SCeftriaxone SCefuroxime SCiprofloxacin S SErtapenem SGentamicin SImipenem SLevofloxacin S SMeropenem SNitrofurantoin S SPenicillin SPiperacillin/Tazobactam STetracycline S STobramycin STrimethoprim/Sulfa SVancomycin S PATIENT NOT FASTINGP ERFORMED BY: [facility] [id number] [facility] [id number] Information: SRC:RORO Urinalysis, Office ([phone])Or dered By: John Puri on 02-27-2019 Bilirubin Ql (U) Negative Normal Comprehe nsive [facility] Work Phone: Glucose Test strip mass conc (U) Negative Normal [facility] Work Phone: Hemoglobin Ql (U) Negative Normal Compreh ensive [facility] Work Phone: Ketones Ql (U) Negative Normal Comprehens [facility]o [facility] Work Phone: Leukocyte esterase Test strip Ql (U) Negative Normal [facility] Work Phone: Nitrite Ql (U) Negative Normal Comprehens christo [facility] Work Phone: pH (U) 7 [pH] Normal [facility] Work Phone: Protein Ql (U) Negative Normal Comprehens christo [facility] Work Phone: Specific gravity Relative Density (U) 1.015 1 Normal Comprehensi ve [facility] Medicine Work Phone: Urobilinogen mass/time (24H U) Normal Normal [facility] Work Phone: Urinalysis, Office ([phone])Or dered By: John Corbett on 02-27-2019 Bilirubin Ql (U) Negative Normal Comprehe nsive Internal Medicine; [facility] Work Phone: Glucose Test strip (U) [Mass/Vol] Negative Normal [facility] Medicine; [facility] Work Phone: Hemoglobin Ql (U) Negative Normal Compreh ensive [facility]; [facility] Work Phone: Ketones Ql (U) Negative Normal Com[facility]; [facility] Work Phone: Leukocyte esterase Test strip Ql (U) Negative Normal [facility]; [facility] Work Phone: Nitrite Ql (U) Negative Normal [facility]; [facility] Work Phone: Protein Ql (U) Negative Normal [facility]; [facility] Work Phone: HOSPon 02-11-2019 HOSP Patient:Jena Cota MRN: Height:5' 4.25(1.632 m) Weight:120 lb (54.432 kg) Outpatient Medications as of 03/08/19: amlodipine besylate (NORVASC ORAL) alendronate 70 mg ORAL tablet CALCIUM CARBONATE/VITAMIN D3 (CALCIUM 600 + D ORAL) VITAMIN B COMPLEX (SUPER B COMPLEX ORAL) DOCOSAHEXANOIC ACID/EPA (FISH OIL ORAL) MULTI-VITAMIN ORAL CALCIUM CARBONATE, [id number], (TUMS ORAL) ASPIRIN/ACETAMINOPHEN/C AFFEINE (EXCEDRIN EXTRA STRENGTH ORAL) PEG 400-Propylene Glycol (SYSTANE) 0.4-0.3 % OPHTHALMIC Drop desoximetasone 0.25 % TOPICAL Oint LEVOTHYROXINE 100 mcg ORAL tablet Admission/Clinic Administered Medications as of 03/08/19: lactated ringers infusion Problem List: Neutropenia, unspecified (HCC) [D70.9] Entropion of left lower eyelid [H02.005] Allergies: Sulfa (Sulfonamide Antibiotics) Date Verified: 03/08/19 Lab Values No results within the last 30 days for the following basenames: K,HCT No progress notes entered within the past 30 days Normal [facility] URINE ERIKA CULTURE[place]IDENTIF[place] ([id number])Ordered By: Toolmaker on 10-15-2018 Bacteria identified Cx Nom (U) Final report Abnormal [facility] Work Phone: Comment on above: PERFORMED BY: [employer] [id number] [facility] [id number] Information: SRC:UC Bacteria identified Cx Nom (U) Enterococcus faecalis Abnormal Comprehens [facility] Work Phone: Comment on above: 10,000-25,000 colony forming units per mLNote: this isolate is vancomycin-susceptible.This information is provided for epidemiologic purposes only:vancomycin is not among the antibiotics recommended for therapyof urinary tract infections caused by Enterococcus.For Enterococcus species, aminoglycosides (except for high-levelresistance screening), cephalosporins, clindamycin, andtrimethoprim-sulfamethoxazole are not effective clinically.(CLSI, [id number], 2016) PERFORMED BY: [email or web address] [employer] BiosciencesFormerly [facility], [facility] [id number] Information: SRC: Bacteria identified Cx Nom (U) ENTEAE Abnormal [facility] Work Phone: Comment on above: Enterobacter aerogen es1,000 Colonies/mL PERFORMED BY: [employer]70 [employer] BiosciencesFormerly [facility] [id number] Information: SRC: Other Antibiotic susc MIHEAD Normal Com prehensive [facility] Medicine Work Phone: Comment on above: S = Susceptible; I = Intermediate; R = Resistant P = Positive; N = Negative MICS are expressed in micrograms per mL Antibiotic RSLT#1 RSLT#2 RSLT#3 RSLT#4Amoxicillin/Clavulanic Acid RCefazolin RCefepime SCeftriaxone SCefuroxime RCiprofloxacin S SErtapenem SGentamicin SImipenem SLevofloxacin S SMeropenem SNitrofurantoin R SPenicillin STetracycline S RTobramycin STrimethoprim/Sulfa SVancomycin S PERFORMED BY: [email or web address] MailC[facility] [id number] Information: SRC: Urinalysis, Office ([id number])Or dered By: Lynda Monteiro on 10-15-2018 Bilirubin Ql (U) Negative Normal Comprehe ns[facility] Work Phone: Bilirubin Ql (U) Negative Normal Comprehe nsive [facility]; [facility] Work Phone: Glucose Test strip (U) [Mass/Vol] Negative Normal [facility]; [facility] Work Phone: Glucose Test strip mass conc (U) Negative Normal [facility] Work Phone: Hemoglobin Ql (U) Negative Normal Compreh ens[facility] Work Phone: Hemoglobin Ql (U) Negative Normal Compre[facility] ens[facility]; [facility] Work Phone: Hemoglobin Test strip Ql (U) Negative Normal [facility] Work Phone: Ketones Ql (U) Negative Normal [facility] Work Phone: Ketones Ql (U) Negative Normal [facility]; [facility] Work Phone: Leukocyte esterase Test strip Ql (U) Trace Normal [facility] Work Phone: Nitrite Ql (U) Negative Normal Comprehens [facility] Work Phone: Nitrite Ql (U) Negative Normal Comprehens [facility]; [facility] Work Phone: Nitrite Test strip Ql (U) Negative Normal [facility] Work Phone: pH (U) 6 [pH] Abnormal [facility] Work Phone: pH Test strip (U) 6 [pH] Abnormal Compre[facility] ens[facility] Work Phone: Protein Ql (U) Negative Normal Comprehens [facility] Work Phone: Protein Ql (U) Negative Normal Comprehens [facility]; [facility] Work Phone: Protein Test strip Ql (U) Negative Normal [facility] Work Phone: Specific gravity Relative Density (U) 1.015 1 Normal Comprehensi ve [facility] Work Phone: Urobilinogen mass/time (24H U) Normal Normal [facility] Work Phone: CBC W/Diff, AutomatedOrdered By: Toolmaker on 09-27-2018 Basophils/100 WBC Auto (Bld) 2.1 % Abnormal 0-1 [facility] Work Phone: Eosinophils/100 WBC Auto (Bld) 7.5 % Abnormal 0-5 [facility] Work Phone: Erythrocyte distribution width Auto Ratio (RBC) 12.2 % Normal 11.6-14.6 [facility] Work Phone: Hematocrit Auto Volume Fraction (Bld) 39.0 % Normal 37-47 [facility] Work Phone: Hemoglobin mass conc (Bld) 13.5 g/dL Normal 12.0-15.0 [facility] Work Phone: Lymphocytes/100 WBC Auto (Bld) 32.5 % Normal 19-41 [facility] Work Phone: MCH Auto Entitic mass (RBC) 32.2 pg Abnormal 27.0-32.0 [facility] Work Phone: MCHC Auto mass conc (RBC) 34.6 {g/gl} Normal 32-36 [facility] Work Phone: MCV Auto Entitic volume (RBC) 93.1 fL Normal 81-99 [facility] Work Phone: Monocytes/100 WBC Auto (Bld) 14.0 % Abnormal 0-10 [facility] Work Phone: Neutrophils/100 WBC Auto (Bld) 43.9 % Abnormal 47-70 [facility] Work Phone: Platelet mean volume Auto Entitic volume (Bld) 9.9 fL Normal 6.2-12.0 [facility] Work Phone: Platelets Auto #/vol (Bld) 254 10*3/uL Normal 150-450 [facility] Work Phone: RBC Auto #/vol (Bld) 4.19 {M/mm3} Abnormal 4.2-5.4 [facility] Internal Medicine Work Phone: WBC Auto #/vol (Bld) 3.4 10*3/uL Abnormal 4.4-11.0 [facility] prehensive Internal Medicine Work Phone: CBC W/Diff, Automated 1.09 {X10_3/ul} Normal 0.83-4.51 [facility] Work Phone: CBC W/Diff, Automated 41.5 fL Normal 35.1-43.9 [facility] Work Phone: CBC W/Diff, Automated 1.5 {X10_3/uL} Abnormal 2.0-7.7 [facility] Work Phone: CBC W/Diff, Automated 0.000 % Normal 0.0-0.9 [facility] prehens[facility] Work Phone: Comment on above: IG% - Immature Granu locytes (promyelocytes, myelocytes andmetamyelocytes) > 1% indicates that a LEFT SHIFT is Present. [facility] Metabolic Prof ilOrdered By: Toolmaker on 09-27-2018 Comprehensive metabolic 2000 panel 0.67 mg/dL Normal 0.55-1.02 Comprehensi ve [facility] Medicine Work Phone: Comment on above: The validity of the calculated GFR AND GFRAA in patients over70 years has not been determined. Clinical correlation isessential. [facility] 2000 panel 3.2 g/dL Normal 2.2-4.2 [facility] Work Phone: Comprehensive metabolic 2000 panel 83 U/L Normal 45-117 Compre[facility] Work Phone: Comprehensive metabolic 2000 panel 27 U/L Normal 13-56 [facility] Work Phone: [facility] metabolic 2000 panel 0.80 mg/dL Normal 0.20-1.00 [facility] Work Phone: Comprehensive metabolic 2000 panel 138 mmol/L Normal 136-145 [facility] Work Phone: Comprehensive metabolic 2000 panel 4.0 mmol/L Normal 3.5-5.1 [facility] Work Phone: Comprehensive metabolic 2000 panel 103 mmol/L Normal 98-107 [facility] Work Phone: [facility] metabolic 2000 panel 29.0 mmol/L Normal 21.0-32.0 [facility] Work Phone: Comprehensive metabolic 2000 panel 12 mg/dL Normal 7-18 [facility] Work Phone: [facility] metabolic 2000 panel 1.2 {RATIO} Normal 0.9-2.4 [facility] Work Phone: [facility] metabolic 2000 panel 78 mg/dL Normal 74-106 [facility] Work Phone: Comment on above: Please note revised GLUCOSE reference range /11/2017. [facility] 2000 panel 9.0 mg/dL Normal 8.5-10.1 [facility] Work Phone: [facility] metabolic 2000 panel 91 mL/min Normal Compre[facility]si [facility] Work Phone: Comment on above: Non- GFR Calc [facility] 2000 panel 110 mL/min Normal Compre[facility]si [facility] Work Phone: Comment on above: GFR Calc [facility] 2000 panel 18.0 {RATIO} Normal 10-20 [facility] Work Phone: [facility] metabolic 2000 panel 7.0 g/dL Normal 6.4-8.2 [facility] Work Phone: [facility] 2000 panel 3.8 g/dL Normal 3.2-5.0 [facility] Work Phone: Comprehensive metabolic 2000 panel 6 1 Normal 5-15 [facility] Work Phone: [facility] metabolic 2000 panel 25 U/L Normal 15-37 Compre[facility] Work Phone: CBC-Complete Blood Cnt No Di ffOrdered By: Toolmaker on 07-24-2018 Erythrocyte distribution width Auto Ratio (RBC) 12.3 % Normal 11.6-14.6 [facility] Work Phone: Hematocrit Auto Volume Fraction (Bld) 34.9 % Abnormal 37-47 [facility] Work Phone: Hemoglobin mass conc (Bld) 12.3 g/dL Normal 12.0-15.0 [facility] Work Phone: MCH Auto Entitic mass (RBC) 32.7 pg Abnormal 27.0-32.0 [facility] Work Phone: MCHC Auto mass conc (RBC) 35.2 {g/gl} Normal 32-36 [facility] Work Phone: MCV Auto Entitic volume (RBC) 92.8 fL Normal 81-99 [facility] Work Phone: Platelet mean volume Auto Entitic volume (Bld) 10.4 fL Normal 6.2-12.0 [facility] Work Phone: Platelets Auto #/vol (Bld) 259 10*3/uL Normal 150-450 [facility] Work Phone: RBC Auto #/vol (Bld) 3.76 {M/mm3} Abnormal 4.2-5.4 [facility]: WBC Auto #/vol (Bld) 3.5 10*3/uL Abnormal 4.4-11.0 [facility] Work Phone: CBC-Complete Blood Cnt No Diff 40.8 fL Normal 35.1-43.9 [facility] Work Phone: Culture, UrineOrdered By: Jose A stem Chip Crusher Operator on 07-24-2018 Bacteria identified Cx Nom (U) See Note Normal [facility] Work Phone: Comment on above: Urine CultureORGANIS M 1: Mixed Gram Positive OrganismsColony Count 1000-10,000MIX CULTURE Mixed contaminants. Submit a new specimen if indicated. Liver ProfileOrdered By: Lori tem Chip Crusher Operator on 07-24-2018 Albumin mass conc 3.5 g/dL Normal 3.2-5.0 [facility] Internal Medicine Work Phone: ALP enzyme act/vol 78 U/L Normal 45-117 [facility] Work Phone: ALT enzyme act/vol 29 U/L Normal 13-56 [facility] Internal [facility] Work Phone: AST enzyme act/vol 27 U/L Normal 15-37 [facility] Internal Medicine Work Phone: Bilirubin mass conc 0.90 mg/dL Normal 0.20-1.00 [facility] Internal Medicine Work Phone: Bilirubin.direct mass conc 0.23 mg/dL Normal 0.00-0.30 [facility] Work Phone: Globulin Calculated mass conc (S) 3.2 g/dL Normal 2.2-4.2 [facility] Work Phone: Protein mass conc 6.7 g/dL Normal 6.4-8.2 Compreh ensive [facility] Work Phone: Thyroid Stim Hormone (TSH)Or dered By: Toolmaker on 07-24-2018 Thyrotropin Qn 2.22 {uIU/mL} Normal 0.358-3.74 Compre[facility] ens[facility] Work Phone: URINE ERIKA CULTURE-IDENTIFICA [place] ([id number])Ordered By: Toolmaker on 07-24-2018 Bacteria identified Cx Nom (U) MUG Normal [facility] Work Phone: Comment on above: Mixed urogenital shoaib ra1,000 Colonies/mL PATIENT NOT FASTINGP ERFORMED BY: GABRIELA [employer]rp [id number] SchoolFormerly [facility], [facility] [id number] Information: SRC:RORO Bacteria identified Cx Nom (U) Final report Normal [facility] Work Phone: Comment on above: PATIENT NOT FASTINGP ERFORMED BY: GABRIELA [facility] [id number] C$ cMoneyFormerly [facility] [id number] Information: SRC:RORO Urinalysis, Office ([id number])Or dered By: Lynda Monteiro on 07-24-2018 Bilirubin Ql (U) Negative Normal Comprehe nsive [facility] Work Phone: Bilirubin Ql (U) Negative Normal Comprehe nsive [facility]; [facility] Work Phone: Glucose Test strip (U) [Mass/Vol] Negative Normal [facility]; [facility] Work Phone: Glucose Test strip mass conc (U) Negative Normal [facility] Work Phone: Hemoglobin Ql (U) Negative Normal Compreh ensive [facility] Work Phone: Hemoglobin Ql (U) Negative Normal Compreh ensive [facility]; [facility] Work Phone: Hemoglobin Test strip Ql (U) Negative Normal [facility] Work Phone: Ketones Ql (U) Negative Normal Comprehens [facility] Work Phone: Ketones Ql (U) Negative Normal Comprehens [facility]; [facility] Work Phone: Leukocyte esterase Test strip Ql (U) Negative Normal [facility] Work Phone: Leukocyte esterase Test strip Ql (U) Negative Normal [facility]; [facility] Work Phone: Nitrite Ql (U) Negative Normal Comprehens [facility] Work Phone: Nitrite Ql (U) Negative Normal Comprehens [facility]; [facility] Work Phone: Nitrite Test strip Ql (U) Negative Normal [facility] Work Phone: pH (U) 6.5 [pH] Normal [facility] Work Phone: pH Test strip (U) 6.5 [pH] Normal Compreh ensive [facility] Work Phone: Protein Ql (U) Negative Normal Comprehens [facility] Work Phone: Protein Ql (U) Negative Normal Comprehens [facility]; [facility] Work Phone: Protein Test strip Ql (U) Negative Normal [facility] Work Phone: Specific gravity Relative Density (U) 1.010 1 Normal Comprehensi [facility] Work Phone: Urobilinogen mass/time (24H U) Normal Normal [facility] Work Phone: CBC W/Diff, AutomatedOrdered By: Toolmaker on 07-17-2018 Basophils/100 WBC Auto (Bld) 1.5 % Abnormal 0-1 [facility] Work Phone: Eosinophils/100 WBC Auto (Bld) 6.2 % Abnormal 0-5 [facility] Work Phone: Erythrocyte distribution width Auto Ratio (RBC) 12.3 % Normal 11.6-14.6 [facility] Work Phone: Hematocrit Auto Volume Fraction (Bld) 36.6 % Abnormal 37-47 [facility] Work Phone: Hemoglobin mass conc (Bld) 12.8 g/dL Normal 12.0-15.0 [facility] Work Phone: Lymphocytes/100 WBC Auto (Bld) 34.3 % Normal 19-41 [facility] Work Phone: MCH Auto Entitic mass (RBC) 32.2 pg Abnormal 27.0-32.0 [facility] Work Phone: MCHC Auto mass conc (RBC) 35.0 {g/gl} Normal 32-36 [facility] Work Phone: MCV Auto Entitic volume (RBC) 92.0 fL Normal 81-99 [facility] Work Phone: Monocytes/100 WBC Auto (Bld) 17.0 % Abnormal 0-10 [facility] Work Phone: Neutrophils/100 WBC Auto (Bld) 40.7 % Abnormal 47-70 [facility] Work Phone: Platelet mean volume Auto Entitic volume (Bld) 10.0 fL Normal 6.2-12.0 [facility] Work Phone: Platelets Auto #/vol (Bld) 237 10*3/uL Normal 150-450 [facility] Work Phone: RBC Auto #/vol (Bld) 3.98 {M/mm3} Abnormal 4.2-5.4 [facility] Work Phone: WBC Auto #/vol (Bld) 3.2 10*3/uL Abnormal 4.4-11.0 [facility] Work Phone: CBC W/Diff, Automated 1.11 {X10_3/ul} Normal 0.83-4.51 [facility] Work Phone: CBC W/Diff, Automated 1.3 {X10_3/uL} Abnormal 2.0-7.7 [facility] Work Phone: CBC W/Diff, Automated 0.300 % Normal 0.0-0.9 [facility] Work Phone: Comment on above: IG% - Immature Granu locytes (promyelocytes, myelocytes andmetamyelocytes) > 1% indicates that a LEFT SHIFT is Present. CBC W/Diff, Automated 40.5 fL Normal 35.1-43.9 [facility] prehens[facility] Internal Medicine Work Phone: MicroalbOrdered By: Shakira greene on 07-17-2018 Creatinine mass conc 26.2 {mg/g_CRE} Normal [facility] Work Phone: Microalb 12.4 mg/L Normal [facility] Work Phone: Microalb 47.40 mg/dL Normal [facility] Work Phone: Thyroid Stim Hormone (TSH)Or dered By: Toolmaker on 07-17-2018 Thyrotropin Qn 3.50 {uIU/mL} Normal 0.358-3.74 Compreh ensive [facility] Work Phone: MICROALBUMINOrdered By: Syst em Chip Crusher Operator on 04-20-2018 Albumin DL <= 20 mg/L mass conc (U) 6.2 ug/mL Normal [facility] Work Phone: Comment on above: for 18, today; P ATIENT NOT FASTINGPERFORMED BY: [id number] [facility] MailC[facility] [id number] Albumin/Creatinine mass ratio (U) 14.2 {mg/g_creat} Normal 0.0-30.0 [facility] Work Phone: Comment on above: for -18, today; P ATIENT NOT FASTINGPERFORMED BY: [id number] BiosciencesFormerly [facility] [id number] Creatinine mass conc (U) 43.6 mg/dL Normal [facility] Work Phone: Comment on above: for 718, today; P ATIENT NOT FASTINGPERFORMED BY: [id number] BiosciencesFormerly [facility] [id number] Urinalysis, Office ([id number])Or dered By: John Puri on 04-20-2018 Bilirubin Ql (U) Negative Normal Comprehe nsive [facility] Work Phone: Comment on above: today Glucose Test strip mass conc (U) Negative Normal [facility] Work Phone: Comment on above: today Hemoglobin Ql (U) Negative Normal Compreh ensive [facility] Work Phone: Comment on above: today Hemoglobin Test strip Ql (U) Negative Normal [facility] Work Phone: Ketones Ql (U) Negative Normal Comprehens [facility] Work Phone: Comment on above: today Leukocyte esterase Test strip Ql (U) Negative Normal [facility] Work Phone: Comment on above: today Nitrite Ql (U) Negative Normal Comprehens [facility] Work Phone: Comment on above: today Nitrite Test strip Ql (U) Negative Normal [facility] Work Phone: pH (U) 6 [pH] Abnormal [facility] Work Phone: Comment on above: today pH Test strip (U) 6 [pH] Abnormal Compreh ensive [facility] Work Phone: Protein Ql (U) Negative Normal Comprehens [facility] Work Phone: Comment on above: today Protein Test strip Ql (U) Negative Normal [facility] Work Phone: Specific gravity Relative Density (U) 1.010 1 Normal Comprehensi ve [facility] Work Phone: Comment on above: today Urobilinogen mass/time (24H U) Normal Normal [facility] Work Phone: Comment on above: today Urinalysis, Office ([id number])Or dered By: John Corbett on 04-20-2018 Bilirubin Ql (U) Negative Normal Comprehe nsive [facility] Medicine; [facility] Work Phone: Comment on above: today Glucose Test strip (U) [Mass/Vol] Negative Normal [facility]; [facility] Work Phone: Comment on above: today Hemoglobin Ql (U) Negative Normal Compreh ensive [facility]; [facility] Work Phone: Comment on above: today Ketones Ql (U) Negative Normal Comprehens [facility]; [facility] Work Phone: Comment on above: today Leukocyte esterase Test strip Ql (U) Negative Normal [facility]; [facility] Work Phone: Comment on above: today Nitrite Ql (U) Negative Normal Comprehens [facility]; [facility] Work Phone: Comment on above: today Protein Ql (U) Negative Normal Comprehens [facility]; [facility] Work Phone: Comment on above: today ANTINUCLEAR ANTIBODIES DIREC TOrdered By: Toolmaker on 03-02-2018 Nuclear Ab Ql (S) Negative Normal Compreh ensive [facility] Work Phone: Comment on above: Performed at: [place] [id number] Director: Lul Hassan PhD, Phone: [phone] CBC W/Diff, AutomatedOrdered By: Toolmaker on 03-02-2018 Basophils/100 WBC Auto (Bld) 1.1 % Abnormal 0-1 [facility] Work Phone: Eosinophils/100 WBC Auto (Bld) 3.4 % Normal 0-5 [facility] Work Phone: Erythrocyte distribution width Auto Ratio (RBC) 12.4 % Normal 11.6-14.6 [facility] Work Phone: Hematocrit Auto Volume Fraction (Bld) 39.3 % Normal 37-47 [facility] Work Phone: Hemoglobin mass conc (Bld) 13.6 g/dL Normal 12.0-15.0 [facility] Work Phone: Lymphocytes/100 WBC Auto (Bld) 33.3 % Normal 19-41 [facility] Work Phone: MCH Auto Entitic mass (RBC) 31.6 pg Normal 27.0-32.0 [facility] Work Phone: MCHC Auto mass conc (RBC) 34.6 {g/gl} Normal 32-36 [facility] Work Phone: MCV Auto Entitic volume (RBC) 91.2 fL Normal 81-99 [facility] Work Phone: Monocytes/100 WBC Auto (Bld) 13.0 % Abnormal 0-10 [facility] Work Phone: Neutrophils/100 WBC Auto (Bld) 48.9 % Normal 47-70 [facility] Work Phone: Platelet mean volume Auto Entitic volume (Bld) 10.1 fL Normal 6.2-12.0 [facility] Work Phone: Platelets Auto #/vol (Bld) 247 10*3/uL Normal 150-450 [facility] Work Phone: RBC Auto #/vol (Bld) 4.31 {M/mm3} Normal 4.2-5.4 [facility] Work Phone: WBC Auto #/vol (Bld) 3.5 10*3/uL Abnormal 4.4-11.0 [facility]: CBC W/Diff, Automated 1.18 {X10_3/ul} Normal 0.83-4.51 [facility] Work Phone: CBC W/Diff, Automated 0.300 % Normal 0.0-0.9 [facility]: Comment on above: IG% - Immature Granu locytes (promyelocytes, myelocytes andmetamyelocytes) > 1% indicates that a LEFT SHIFT is Present. CBC W/Diff, Automated 41.3 fL Normal 35.1-43.9 [facility]: CBC W/Diff, Automated 1.7 {X10_3/uL} Abnormal 2.0-7.7 [facility] Internal Medicine Work Phone: Comprehensive Metabolic Prof ilOrdered By: Toolmaker on 03-02-2018 Comprehensive metabolic 2000 panel 26 U/L Normal 13-56 [facility] Internal Medicine Work Phone: Comprehensive metabolic 2000 panel 81 mL/min Normal Compre[facility]si ve Internal Medicine Work Phone: Comment on above: Non- GFR Calc Comprehensive metabolic 2000 panel 29.0 mmol/L Normal 21.0-32.0 [facility] Internal Medicine Work Phone: Comprehensive metabolic 2000 panel 13 mg/dL Normal 7-18 [facility] Internal Medicine Work Phone: Comprehensive metabolic 2000 panel 6 1 Normal 5-15 [facility] Internal Medicine Work Phone: Comprehensive metabolic 1999 panel 0.73 mg/dL Normal 0.55-1.02 [facility] Internal Medicine Work Phone: Comment on above: The validity of the calculated GFR AND GFRAA in patients over70 years has not been determined. Clinical correlation isessential. Comprehensive metabolic 1999 panel 101 mmol/L Normal 98-107 [facility] Internal Medicine Work Phone: Comprehensive metabolic 1999 panel 4.1 mmol/L Normal 3.5-5.1 [facility] Medicine Work Phone: Comprehensive metabolic 1999 panel 98 mL/min Normal Compre[facility]si ve Internal Medicine Work Phone: Comment on above: GFR Calc Comprehensive metabolic 1999 panel 17.7 {RATIO} Normal 10-20 [facility] Internal Medicine Work Phone: Comprehensive metabolic 2000 panel 7.0 g/dL Normal 6.4-8.2 [facility] Work Phone: Comprehensive metabolic 1999 panel 3.8 g/dL Normal 3.2-5.0 [facility] Internal Medicine Work Phone: Comprehensive metabolic 1999 panel 3.2 g/dL Normal 2.2-4.2 [facility] Internal Medicine Work Phone: Comprehensive metabolic 2000 panel 1.2 {RATIO} Normal 0.9-2.4 [facility] Work Phone: Comprehensive metabolic 1999 panel 136 mmol/L Normal 136-145 [facility] Internal Medicine Work Phone: Comprehensive metabolic 1999 panel 8.6 mg/dL Normal 8.5-10.1 [facility] Work Phone: Comprehensive metabolic 1999 panel 85 U/L Normal 45-117 [facility] Internal Medicine Work Phone: Comprehensive metabolic 1999 panel 1.00 mg/dL Normal 0.20-1.00 [facility] Medicine Work Phone: Comprehensive metabolic 2000 panel 75 mg/dL Normal 74-106 Comprehensi ve Internal Medicine Work Phone: Comment on above: Please note revised GLUCOSE reference range [id number]/02/2018. Folates, (Folic Acid)Ordered By: Toolmaker on 03-02-2018 Folates, (Folic Acid) 42.90 ng/mL Normal 3.1-55.4 Co m[facility] Internal Medicine Work Phone: Thyroid Stim Hormone (TSH)Or dered By: Toolmaker on 03-02-2018 Thyrotropin Qn 2.14 {uIU/mL} Normal 0.358-3.74 Compreh ensive Internal Medicine Work Phone: Vitamin A08Msksncp By: Gillian m Chip Crusher Operator on 03-02-2018 Cobalamin (Vitamin B12) mass conc 1417 pg/mL Abnormal 211-911 [facility] Work Phone: CBC W/Diff, AutomatedOrdered By: Toolmaker on 08-24-2017 Basophils/100 WBC Auto (Bld) 1.7 % Abnormal 0-1 [facility] Work Phone: Eosinophils/100 WBC Auto (Bld) 3.4 % Normal 0-5 [facility] Work Phone: Erythrocyte distribution width Auto Ratio (RBC) 12.2 % Normal 11.6-14.6 [facility] Work Phone: Hematocrit Auto Volume Fraction (Bld) 40.2 % Normal 37-47 [facility] Work Phone: Hemoglobin mass conc (Bld) 14.3 g/dL Normal 12.0-15.0 [facility] Work Phone: Lymphocytes/100 WBC Auto (Bld) 30.5 % Normal 19-41 [facility] Work Phone: MCH Auto Entitic mass (RBC) 32.1 pg Abnormal 27.0-32.0 [facility] Work Phone: MCHC Auto mass conc (RBC) 35.6 {g/gl} Normal 32-36 [facility] Work Phone: MCV Auto Entitic volume (RBC) 90.3 fL Normal 81-99 [facility] Internal Medicine Work Phone: Monocytes/100 WBC Auto (Bld) 16.8 % Abnormal 0-10 [facility] Internal Medicine Work Phone: Neutrophils/100 WBC Auto (Bld) 47.3 % Normal 47-70 [facility] Internal Medicine Work Phone: Platelet mean volume Auto Entitic volume (Bld) 10.2 fL Normal 6.2-12.0 [facility] Internal Medicine Work Phone: Platelets Auto #/vol (Bld) 274 10*3/uL Normal 150-450 [facility] Internal Medicine Work Phone: RBC Auto #/vol (Bld) 4.45 {M/mm3} Normal 4.2-5.4 [facility] Internal Medicine Work Phone: WBC Auto #/vol (Bld) 3.6 10*3/uL Abnormal 4.4-11.0 [facility]: CBC W/Diff, Automated 1.09 {X10_3/ul} Normal 0.83-4.51 [facility] Internal Medicine Work Phone: CBC W/Diff, Automated 1.7 {X10_3/uL} Abnormal 2.0-7.7 [facility] Internal Medicine Work Phone: CBC W/Diff, Automated 0.300 % Normal 0.0-0.9 [facility] Internal Medicine Work Phone: Comment on above: IG% - Immature Granu locytes (promyelocytes, myelocytes andmetamyelocytes) > 1% indicates that a LEFT SHIFT is Present. CBC W/Diff, Automated 39.7 fL Normal 35.1-43.9 [facility]: Thyroid Stim Hormone (TSH)Or dered By: Toolmaker on 08-24-2017 Thyrotropin Qn 2.61 {uIU/mL} Normal 0.358-3.74 [facility] Work Phone: Vitamin D,25 HydroxyOrdered By: Toolmaker on 08-24-2017 Vitamin D,25 Hydroxy 63.1 ng/mL Normal Comp rehensive Internal Medicine Work Phone: Comment on above: Vitamin D 25(OH) Sta tus Range Deficiency <20 ng/mL (50nmol/L) Insuffciency 20 - 30 ng/mL (50 - 75 nmol/L) Sufficiency 30 - 100 ng/mL (75 - 250 nmol/L) Toxicity >100 ng/mL (>250 nmol/L); ADDENDA: OV 08/30 Thyroid Stim Hormone (TSH)Or dered By: Toolmaker on 04-10-2017 Thyrotropin Qn 3.91 {uIU/mL} Abnormal 0.358-3.74 Compreh ensive Internal Medicine Work Phone: CBC W/Diff, AutomatedOrdered By: Toolmaker on 02-16-2017 Basophils/100 WBC Auto (Bld) 2.8 % Abnormal 0-1 [facility] Work Phone: Eosinophils/100 WBC Auto (Bld) 4.9 % Normal 0-5 [facility] Work Phone: Erythrocyte distribution width Auto Ratio (RBC) 12.4 % Normal 11.6-14.6 [facility] Work Phone: Hematocrit Auto Volume Fraction (Bld) 38.8 % Normal 37-47 [facility] Work Phone: Hemoglobin mass conc (Bld) 13.5 g/dL Normal 12.0-15.0 [facility] Work Phone: Lymphocytes/100 WBC Auto (Bld) 32.5 % Normal 19-41 [facility] Work Phone: MCH Auto Entitic mass (RBC) 33.0 pg Abnormal 27.0-32.0 [facility] Work Phone: MCHC Auto mass conc (RBC) 34.8 {g/gl} Normal 32-36 [facility] Work Phone: MCV Auto Entitic volume (RBC) 94.9 fL Normal 81-99 [facility] Work Phone: Monocytes/100 WBC Auto (Bld) 12.7 % Abnormal 0-10 [facility] Work Phone: Neutrophils/100 WBC Auto (Bld) 47.1 % Normal 47-70 [facility] Internal Medicine Work Phone: Platelet mean volume Auto Entitic volume (Bld) 9.5 fL Normal 6.2-12.0 [facility] Internal Medicine Work Phone: Platelets Auto #/vol (Bld) 231 10*3/uL Normal 150-450 [facility] Internal Medicine Work Phone: RBC Auto #/vol (Bld) 4.09 {M/mm3} Abnormal 4.2-5.4 [facility] Internal Medicine Work Phone: WBC Auto #/vol (Bld) 2.8 10*3/uL Abnormal 4.4-11.0 [facility] Internal Medicine Work Phone: CBC W/Diff, Automated 42.6 fL Normal 35.1-43.9 [facility] Internal Medicine Work Phone: CBC W/Diff, Automated 0.000 % Normal 0.0-0.9 [facility] Internal Medicine Work Phone: Comment on above: IG% - Immature Granu locytes (promyelocytes, myelocytes andmetamyelocytes) > 1% indicates that a LEFT SHIFT is Present. CBC W/Diff, Automated 0.92 {X10_3/ul} Normal 0.83-4.51 [facility] Internal Medicine Work Phone: CBC W/Diff, Automated 1.3 {X10_3/uL} Abnormal 2.0-7.7 [facility] Internal Medicine Work Phone: Comprehensive Metabolic Prof ilOrdered By: Toolmaker on 02-16-2017 Comprehensive metabolic 2000 panel 28.0 mmol/L Normal 21.0-32.0 [facility] Internal Medicine Work Phone: Comprehensive metabolic 2000 panel 9 1 Normal 5-15 [facility] Internal Medicine Work Phone: Comprehensive metabolic 2000 panel 95 mmol/L Abnormal 98-107 [facility] Internal Medicine Work Phone: Comprehensive metabolic 2000 panel 4.2 mmol/L Normal 3.5-5.1 [facility] Work Phone: Comprehensive metabolic 2000 panel 79 mg/dL Normal 70-110 [facility] Internal Medicine Work Phone: Comprehensive metabolic 1999 panel 132 mmol/L Abnormal 136-145 [facility] Internal Medicine Work Phone: Comprehensive metabolic 1999 panel 10 mg/dL Normal 7-18 [facility] Internal Medicine Work Phone: Comprehensive metabolic 1999 panel 0.88 mg/dL Normal 0.55-1.02 Compre[facility]si ve Internal Medicine Work Phone: Comment on above: The validity of the calculated GFR AND GFRAA in patients over70 years has not been determined. Clinical correlation isessential. Comprehensive metabolic 1999 panel 66 mL/min Normal Comprehensi ve Internal Medicine Work Phone: Comment on above: Non- GFR Calc Comprehensive metabolic 1999 panel 1.10 mg/dL Abnormal 0.20-1.00 [facility] Internal Medicine Work Phone: Comprehensive metabolic 1999 panel 79 mL/min Normal Comprehensi ve Internal Medicine Work Phone: Comment on above: GFR Calc Comprehensive metabolic 1999 panel 38 U/L Normal 12-78 [facility] Internal Medicine Work Phone: Comprehensive metabolic 1999 panel 87 U/L Normal 45-117 [facility] Internal Medicine Work Phone: Comprehensive metabolic 2000 panel 11.3 {RATIO} Normal 10-20 [facility] Internal Medicine Work Phone: Comprehensive metabolic 2000 panel 43 U/L Abnormal 15-37 [facility] Internal Medicine Work Phone: Comprehensive metabolic 2000 panel 8.7 mg/dL Normal 8.5-10.1 [facility] Work Phone: Comprehensive metabolic 2000 panel 1.1 {RATIO} Normal 0.9-2.4 [facility] Internal Medicine Work Phone: Comprehensive metabolic 2000 panel 3.5 g/dL Normal 2.3-3.5 [facility] Internal Medicine Work Phone: Comprehensive metabolic 2000 panel 4.0 g/dL Normal 3.4-5.0 [facility] Internal Medicine Work Phone: Comprehensive metabolic 2000 panel 7.5 g/dL Normal 6.4-8.2 [facility]pre[facility] Internal Medicine Work Phone: Lipid ProfileOrdered By: Lori tem Chip Crusher Operator on 02-16-2017 Cholesterol in HDL mass conc 121 mg/dL Normal [facility] Medicine Work Phone: Comment on above: The drugs N-Acetylcy steine and Metamizole may falsely deressthis assay. Reference Range HDL <40 mg/dL Low HDL Cholesterol HDL >or= 60 mg/dL High HDL Cholesterol Cholesterol in LDL mass conc 100 mg/dL Normal 0-130 [facility] Work Phone: Cholesterol mass conc 227 mg/dL Abnormal Com prehensive Internal Medicine Work Phone: Comment on above: <200 mg/dL Desirable 200-240 mg/dL Borderline >240 mg/dL High Risk Triglyceride mass conc 29 mg/dL Normal [facility] Work Phone: Comment on above: The drugs N-Acetylcy steine and Metamizole may falsely deressthis assay.Serum Triglycerides Reference Interval Normal <150 mg/dL Borderline high 150 - 199 mg/dL High 200 - 499 mg/dL Very High > or = 500 mg/dL Lipid Profile 6 mg/dL Normal 5-40 Comprehensi ve Internal Medicine Work Phone: Thyroid Stim Hormone (TSH)Or dered By: Toolmaker on 02-16-2017 Thyrotropin Qn 67.60 {uIU/mL} Abnormal 0.358-3.74 [facility] Internal [facility] Work Phone: Vitamin D,25 HydroxyOrdered By: Toolmaker on 02-16-2017 Vitamin D,25 Hydroxy 31.3 ng/mL Normal Comp [facility] Work Phone: Comment on above: Vitamin D 25(OH) Sta tus Range Deficiency <20 ng/mL (50nmol/L) Insuffciency 20 - 30 ng/mL (50 - 75 nmol/L) Sufficiency 30 - 100 ng/mL (75 - 250 nmol/L) Toxicity >100 ng/mL (>250 nmol/L); ADDENDA: OV 02/24/17 TSHOrdered By: System Manage r on 06-08-2012 Thyrotropin Qn 0.78 {uIU/mL} Normal 0.358-3.74 Compreh ensive Internal Medicine Work Phone: TSHOrdered By: System Manage r on 04-02-2012 Thyrotropin Qn 0.24 {uIU/mL} Abnormal 0.358-3.74 Compreh ensive Internal Medicine Work Phone: CBC with manual diff ([id number]) Ordered By: Toolmaker on 02-03-2012 Basophils #/vol (Bld) 0.0 {x10E3/uL} Normal 0.0-0.2 [facility] Work Phone: Comment on above: PATIENT WAS FASTINGP ERFORMED BY: GABRIELA CardSpringGreystone Park Psychiatric HospitalFulfth6383 [facility] [id number] Information: [id number] Basophils (Bld) [#/Vol] 0.0 10*3/uL Normal 0.0-0.2 [facility]; [facility] Work Phone: Comment on above: PATIENT WAS FASTINGP ERFORMED BY: CardSpringApril [place] [id number] [facility] [id number] Information: [id number] Basophils Auto #/vol (Bld) 0.0 {x10E3/uL} Normal 0.0-0.2 [facility] Work Phone: Basophils/100 WBC (Bld) 1 % Normal 0-3 [facility] Work Phone: Comment on above: PATIENT WAS FASTINGP ERFORMED BY: [facility] PRODUCTIONSSheridan Community Hospital6370 [facility] [id number] Information: [id number] Basophils/100 WBC Auto (Bld) 1 % Normal 0-3 [facility] Work Phone: Eosinophils #/vol (Bld) 0.1 {x10E3/uL} Normal 0.0-0.4 [facility] Work Phone: Comment on above: PATIENT WAS FASTINGP ERFORMED BY: GABRIELA [facility]6370 [facility] [id number] Information: [id number] Eosinophils (Bld) [#/Vol] 0.1 10*3/uL Normal 0.0-0.4 [facility]; [facility] Work Phone: Comment on above: PATIENT WAS FASTINGP ERFORMED BY: GABRIELA [place] 1347470 [facility] [id number] Information: [id number] Eosinophils Auto #/vol (Bld) 0.1 {x10E3/uL} Normal 0.0-0.4 [facility] Work Phone: Eosinophils/100 WBC (Bld) 3 % Normal 0-7 [facility] Work Phone: Comment on above: PATIENT WAS FASTINGP ERFORMED BY: GABRIELA [place] 1347470 [facility] [id number] Information: [id number] Eosinophils/100 WBC Auto (Bld) 3 % Normal 0-7 [facility] Work Phone: Erythrocyte distribution width Auto Ratio (RBC) 13.5 % Normal 11.7-15.0 [facility] Work Phone: Erythrocyte distribution width Ratio (RBC) 13.5 % Normal 11.7-15.0 [facility] Work Phone: Comment on above: PATIENT WAS FASTINGP ERFORMED BY: [facility]6370 [facility] [id number] Information: [id number] Hematocrit Auto Volume Fraction (Bld) 41.6 % Normal 34.0-44.0 [facility] Work Phone: Hematocrit Volume Fraction (Bld) 41.6 % Normal 34.0-44.0 [facility] Work Phone: Comment on above: PATIENT WAS FASTINGP ERFORMED BY: [place] 8013870 [facility] [id number] Information: [id number] Hemoglobin mass conc (Bld) 14.5 g/dL Normal 11.5-15.0 [facility] Work Phone: Comment on above: PATIENT WAS FASTINGP ERFORMED BY: [place] 8013870 [facility] [id number] Information: [id number] Immature granulocytes #/vol (Bld) 0.0 {x10E3/uL} Normal 0.0-0.1 [facility] Work Phone: Comment on above: PATIENT WAS FASTINGP ERFORMED BY: [address] [id number] Information: [id number] Immature granulocytes (Bld) [#/Vol] 0.0 10*3/uL Normal 0.0-0.1 [facility]; [facility] Work Phone: Comment on above: PATIENT WAS FASTINGP ERFORMED BY: [place] 8013870 [facility] [id number] Information: [id number] Immature granulocytes/100 WBC (Bld) 0 % Normal 0-2 [facility] Work Phone: Comment on above: PATIENT WAS FASTINGP ERFORMED BY: [address] [id number] Information: [id number] Lymphocytes #/vol (Bld) 1.4 {x10E3/uL} Normal 0.7-4.5 [facility] Work Phone: Comment on above: PATIENT WAS FASTINGP ERFORMED BY: [place] 8013870 [facility] [id number] Information: [id number] Lymphocytes (Bld) [#/Vol] 1.4 10*3/uL Normal 0.7-4.5 [facility]; [facility] Work Phone: Comment on above: PATIENT WAS FASTINGP ERFORMED BY: [address]ox RoadDublin [place] [id number] Information: [id number] Lymphocytes Auto #/vol (Bld) 1.4 {x10E3/uL} Normal 0.7-4.5 [facility] Work Phone: Lymphocytes/100 WBC (Bld) 35 % Normal 14-46 [facility] Work Phone: Comment on above: PATIENT WAS FASTINGP ERFORMED BY: GABRIELA [place] 1347470 [facility] [id number] Information: [id number] Lymphocytes/100 WBC Auto (Bld) 35 % Normal 14-46 [facility] Work Phone: MCH Auto Entitic mass (RBC) 32.4 pg Normal 27.0-34.0 [facility] Internal Medicine Work Phone: MCH Entitic mass (RBC) 32.4 pg Normal 27.0-34.0 [facility] Internal Medicine Work Phone: Comment on above: PATIENT WAS FASTINGP ERFORMED BY: GABRIELA [place] 1347470 [facility] [id number] Information: [id number] MCHC Auto mass conc (RBC) 34.9 g/dL Normal 32.0-36.0 [facility] Internal Medicine Work Phone: MCHC mass conc (RBC) 34.9 g/dL Normal 32.0-36.0 [facility] Internal Medicine Work Phone: Comment on above: PATIENT WAS FASTINGP ERFORMED BY: GABRIELA [place] 1347470 [facility] [id number] Information: [id number] MCV Auto Entitic volume (RBC) 93 fL Normal 80-98 [facility] Work Phone: MCV Entitic volume (RBC) 93 fL Normal 80-98 [facility] Internal Medicine Work Phone: Comment on above: PATIENT WAS FASTINGP ERFORMED BY: GABRIELA [place] 1347470 [facility] [id number] Information: [id number] Monocytes #/vol (Bld) 0.4 {x10E3/uL} Normal 0.1-1.0 [facility] Work Phone: Comment on above: PATIENT WAS FASTINGP ERFORMED BY: GABRIELA IkeJoe RedmondAacaql3654 [facility] [id number] Information: [id number] Monocytes (Bld) [#/Vol] 0.4 10*3/uL Normal 0.1-1.0 [facility]; [facility] Work Phone: Comment on above: PATIENT WAS FASTINGP ERFORMED BY: GABRIELA [facility] Hospitalyady RedmondUhjvzu[address] [id number] Information: [id number] Monocytes Auto #/vol (Bld) 0.4 {x10E3/uL} Normal 0.1-1.0 [facility] Work Phone: Monocytes/100 WBC (Bld) 10 % Normal 01-26 [facility] Work Phone: Comment on above: PATIENT WAS FASTINGP ERFORMED BY: GABRIELA [facility] Haktnl9602 [facility] [id number] Information: [id number] Monocytes/100 WBC Auto (Bld) 10 % Normal - [facility] Work Phone: Neutrophils #/vol (Bld) 2.1 {x10E3/uL} Normal 1.8-7.8 [facility] Work Phone: Comment on above: PATIENT WAS FASTINGP ERFORMED BY: GABRIELA [place] 1347470 [facility] [id number] Information: [id number] Neutrophils (Bld) [#/Vol] 2.1 10*3/uL Normal 1.8-7.8 [facility]; [facility] Work Phone: Comment on above: PATIENT WAS FASTINGP ERFORMED BY: GABRIELA [place] 1347470 [facility] [id number] Information: [id number] Neutrophils Auto #/vol (Bld) 2.1 {x10E3/uL} Normal 1.8-7.8 [facility] Work Phone: Neutrophils/100 WBC (Bld) 51 % Normal 40-74 [facility] Work Phone: Comment on above: PATIENT WAS FASTINGP ERFORMED BY: GABRIELA [place] 1347470 [facility] [id number] Information: [id number] Neutrophils/100 WBC Auto (Bld) 51 % Normal 40-74 [facility] Work Phone: Platelets #/vol (Bld) 308 {x10E3/uL} Normal 140-415 [facility] Work Phone: Comment on above: PATIENT WAS FASTINGP ERFORMED BY: GABRIELA [address] [id number] Information: [id number] Platelets (Bld) [#/Vol] 308 10*3/uL Normal 140-415 [facility]; [facility] Work Phone: Comment on above: PATIENT WAS FASTINGP ERFORMED BY: GABRIELA [facility] HospitalPerez[address] [id number] Information: [id number] Platelets Auto #/vol (Bld) 308 {x10E3/uL} Normal 140-415 [facility] Work Phone: RBC #/vol (Bld) 4.47 {x10E6/uL} Normal 3.80-5.10 [facility] Internal Medicine Work Phone: Comment on above: PATIENT WAS FASTINGP ERFORMED BY: GABRIELA [place] 1347470 [facility] [id number] Information: [id number] RBC (Bld) [#/Vol] 4.47 10*6/uL Normal 3.80-5.10 [facility]; [facility] Work Phone: Comment on above: PATIENT WAS FASTINGP ERFORMED BY: GABRIELA [facility] Dfvywf9969 [facility] [id number] Information: [id number] RBC Auto #/vol (Bld) 4.47 {x10E6/uL} Normal 3.80-5.10 [facility] Work Phone: WBC #/vol (Bld) 4.1 {x10E3/uL} Normal 4.0-10.5 Compr [facility] Internal Medicine Work Phone: Comment on above: PATIENT WAS FASTINGP ERFORMED BY: LabCoGreystone Park Psychiatric HospitalUjrxna5665 [facility] [id number] Information: [id number] WBC (Bld) [#/Vol] 4.1 10*3/uL Normal 4.0-10.5 Compre [facility] Internal Medicine; [facility] Work Phone: Comment on above: PATIENT WAS FASTINGP ERFORMED BY: LabCoGreystone Park Psychiatric HospitalGdxmkl4348 [facility] [id number] Information: [id number] WBC Auto #/vol (Bld) 4.1 {x10E3/uL} Normal 4.0-10.5 [facility] Work Phone: Lipid Panel ([id number])Ordered B y: Toolmaker on 02-03-2012 Cholesterol in HDL mass conc 92 mg/dL Normal [facility] Work Phone: Comment on above: According to ATP-III Guidelines, HDL-C >59 mg/dL is considered anegative risk factor for CHD. PATIENT WAS FASTINGP ERFORMED BY: [facility] Dcdvyd6926 [facility] [id number] Cholesterol in LDL mass conc 83 mg/dL Normal 0-99 [facility] Work Phone: Comment on above: PATIENT WAS FASTINGP ERFORMED BY: [facility] Ptqdlg2252 [facility] [id number] Cholesterol in LDL/Cholesterol in HDL mass ratio 0.9 {ratio_units} Normal 0.0-3.2 [facility] Work Phone: Comment on above: PATIENT WAS FASTINGP ERFORMED BY: GABRIELA [facility] [id number] [place] [facility] [id number] Cholesterol in VLDL mass conc 10 mg/dL Normal 5-40 [facility] Work Phone: Comment on above: PATIENT WAS FASTINGP ERFORMED BY: GABRIELA [facility] [id number] [place] [facility] [id number] Cholesterol mass conc 185 mg/dL Normal 100-199 Com prehensive Internal Medicine Work Phone: Comment on above: PATIENT WAS FASTINGP ERFORMED BY: CB [facility] [id number] [place] [facility] [id number] Triglyceride mass conc 48 mg/dL Normal 0-149 Co mprehensive Internal Medicine Work Phone: Comment on above: PATIENT WAS FASTINGP ERFORMED BY: GABRIELA [facility] [id number] [facility] [id number] Metabolic Panel, Comprehensi ve ([id number])Ordered By: Toolmaker on 02-03-2012 Albumin mass conc 4.3 g/dL Normal 3.5-4.8 Compreh ensive Internal Medicine Work Phone: Comment on above: PATIENT WAS FASTINGP ERFORMED BY: CB [facility] [id number] [facility] [id number] Albumin/Globulin mass ratio 1.7 {ratio} Normal 1.1-2.5 [facility] Work Phone: Comment on above: PATIENT WAS FASTINGP ERFORMED BY: CB [facility] Mtvuow3131 [facility] [id number] ALP [Catalytic activity/Vol] 84 U/L Normal 25-165 [facility]; [facility] Work Phone: Comment on above: PATIENT WAS FASTINGP ERFORMED BY: CB [facility] Vtfzzk1966 [facility] [id number] ALP enzyme act/vol 84 [iU]/L Normal 25-165 Compre [facility] Internal Medicine Work Phone: Comment on above: PATIENT WAS FASTINGP ERFORMED BY: GABRIELA [facility] Mojigp0735 [address] Cruz RoadDublin [place] [id number] ALT [Catalytic activity/Vol] 32 U/L Normal 0-40 [facility]; [facility] Internal Medicine Work Phone: Comment on above: PATIENT WAS FASTINGP ERFORMED BY: GABRIELA [facility] Otinul0833 [address] Cruz RoadDublin [place] [id number] ALT enzyme act/vol 32 [iU]/L Normal 0-40 [facility] Internal Medicine Work Phone: Comment on above: PATIENT WAS FASTINGP ERFORMED BY: GABRIELA [facility] Msmryd2499 [address] Cruz RoadDublin [place] [id number] AST [Catalytic activity/Vol] 37 U/L Normal 0-40 [facility] Internal Medicine; [facility] Internal Medicine Work Phone: Comment on above: PATIENT WAS FASTINGP ERFORMED BY: GABRIELA [facility] Xzmlws0584 [address] RoadDublin [place] [id number] AST enzyme act/vol 37 [iU]/L Normal 0-40 [facility] Internal Medicine Work Phone: Comment on above: PATIENT WAS FASTINGP ERFORMED BY: GABRIELA [facility] Mpecyp3508 [address] RoadDublin [place] [id number] Bilirubin mass conc 0.8 mg/dL Normal 0.0-1.2 [facility] Internal Medicine Work Phone: Comment on above: PATIENT WAS FASTINGP ERFORMED BY: GABRIELA [facility] Afwcww3448 [address] RoadDublin [place] [id number] Calcium mass conc 9.1 mg/dL Normal 8.6-10.2 [facility] Internal Medicine Work Phone: Comment on above: PATIENT WAS FASTINGP ERFORMED BY: GABRIELA [facility] Yalqzf8679 [address] Cruz RoadDublin [place] [id number] Chloride molar conc 98 mmol/L Normal 97-108 Compr [facility] Internal Medicine Work Phone: Comment on above: PATIENT WAS FASTINGP ERFORMED BY: GABRIELA [facility] Rhfqyv2255 [address] RoadDublin [place] [id number] CO2 molar conc 25 mmol/L Normal 20-32 Comprehens [facility]o Internal Medicine Work Phone: Comment on above: PATIENT WAS FASTINGP ERFORMED BY: GABRIELA Neel Redmondlin6370 [facility] [id number] Creatinine mass conc 0.79 mg/dL Normal 0.57-1.00 Comp rehensive Internal Medicine Work Phone: Comment on above: PATIENT WAS FASTINGP ERFORMED BY: GABRIELA [facility]Saint [facility] Vnmtln0147 [facility] [id number] GFR/1.73 sq M predicted among blacks MDRD vol rate/area (S/P/Bld) 86 mL/min/{1.73_m2} Normal Comprehensiv e Internal Medicine Work Phone: Comment on above: Note: A persistent e GFR <60 mL/min/1.73 m2 (3 months or more) mayindicate chronic kidney disease. An eGFR >59 mL/min/1.73 m2 with anelevated urine protein also may indicate chronic kidney disease.Calculated using CKD-EPI formula. PATIENT WAS FASTINGP ERFORMED BY: GABRIELA [facility]keSaint [facility] Czedml2500 [facility] [id number] GFR/1.73 sq M predicted among non-blacks CKD-EPI vol rate/area (S/P/Bld) 74 mL/min/1.73 Normal Comprehensiv e Internal Medicine Work Phone: Comment on above: PATIENT WAS FASTINGP ERFORMED BY: GABRIELA [facility] Redhqx6913 [facility] [id number] Globulin Calculated mass conc (S) 2.6 g/dL Normal 1.5-4.5 [facility] Work Phone: Globulin mass conc (S) 2.6 g/dL Normal 1.5-4.5 Co mprehensive Internal Medicine Work Phone: Comment on above: PATIENT WAS FASTINGP ERFORMED BY: GABRIELA [facility] Dvicni1544 [facility] [id number] Glucose mass conc 86 mg/dL Normal 65-99 Compreh ensive Internal Medicine Work Phone: Comment on above: PATIENT WAS FASTINGP ERFORMED BY: GABRIELA LabPerezGreystone Park Psychiatric HospitalPkghzk1512 [facility] [id number] Potassium molar conc 4.6 mmol/L Normal 3.5-5.2 Comp [facility]ensive Internal [facility] Work Phone: Comment on above: PATIENT WAS FASTINGP ERFORMED BY: GABRIELA LabPerez Panuhb6419 [facility] [id number] Protein mass conc 6.9 g/dL Normal 6.0-8.5 Compreh ensive Internal Medicine Work Phone: Comment on above: PATIENT WAS FASTINGP ERFORMED BY: GABRIELA LabPerez Bmluhp7451 [facility] [id number] Sodium molar conc 136 mmol/L Normal 134-144 Compreh ensive Internal Medicine Work Phone: Comment on above: PATIENT WAS FASTINGP ERFORMED BY: GABRIELA Redmondlin6370 [facility] [id number] Urea nitrogen mass conc 14 mg/dL Normal 8-27 [facility] Work Phone: Comment on above: PATIENT WAS FASTINGP ERFORMED BY: GABRIELA Redmondlin6370 [facility] [id number] Urea nitrogen/Creatinine mass ratio 18 mg/mg Normal 11-26 [facility] Work Phone: Comment on above: PATIENT WAS FASTINGP ERFORMED BY: GABRIELA Redmondlin6370 [facility] [id number] TSH ([id number])Ordered By: Syste m Chip Crusher Operator on 02-03-2012 Thyrotropin Qn 0.343 {uIU/mL} Abnormal 0.450-4.500 Compr ensive Internal Medicine Work Phone: Comment on above: PATIENT WAS FASTINGP ERFORMED BY: GABRIELA LabJoe RedmondZfyqlm5940 [facility] [id number] BILAT SCRN DIGITAL & CADOrde red By: Toolmaker on 02-01-2012 BILAT SCRN DIGITAL & CAD See Note Normal [facility] Work Phone: Comment on above: MAMMOGRAPHY - BILATE RAL SCREENING REASON FOR EXAM: Female, 71 years old. Routine annual screeningexamination. PERTINENT HISTORY: Non-contributory. TECHNIQUE: Digital examination. Mediolateral oblique (MLO) andcraniocaudad (CC) views of both breasts were obtained. CAD: CAD wasperformed on this study. COMPARISON: Comparison is made with prior examination dated December. FINDINGS:The breast composition is heterogeneously dense. There are no [...] delay biopsy of a clinically suspiciousabnormality. To consult with a radiologist regarding this report, please call our [id number] line @ Dictated on 02/01/12 1242 by Uday OCASIO,Beauranscribed on 02/01/12 1312 by ITS IMPORTSign by Per Frye MD on 02/01/12 1313 Sign by: Per Frye MD LIPIDOrdered By: Shakira davis on 04-28-2011 Cholesterol in HDL mass conc 88 mg/dL Normal [facility] Work Phone: Comment on above: Reference Range HDL <40 mg/dL Low HDL Cholesterol HDL >or= 60 mg/dL High HDL Cholesterol Cholesterol in LDL mass conc 68 mg/dL Normal 0-130 [facility] Work Phone: Cholesterol in VLDL mass conc 7 mg/dL Normal 5-40 [facility] Work Phone: Cholesterol mass conc 163 mg/dL Normal Com prehensive Internal Medicine Work Phone: Comment on above: <200 mg/dL Desirable 200-240 mg/dL Borderline >240 mg/dL High Risk Triglyceride mass conc 37 mg/dL Normal Co mprehensive Internal Medicine Work Phone: Comment on above: Serum Triglycerides Reference Interval Normal <150 mg/dL Borderline high 150 - 199 mg/dL High 200 - 499 mg/dL Very High > or = 500 mg/dL TSHOrdered By: System Manage r on 04-28-2011 Thyrotropin Qn 0.04 {uIU/mL} Abnormal 0.358-3.74 Compreh ensive Internal Medicine Work Phone: CBCDOrdered By: System Manag er on 01-13-2011 Basophils/100 WBC Auto (Bld) 0.9 % Normal 0-1 [facility] Work Phone: Eosinophils/100 WBC Auto (Bld) 3.1 % Normal 0-5 [facility] Work Phone: Erythrocyte distribution width Auto Ratio (RBC) 12.8 % Normal 11.6-14.6 [facility] Work Phone: Hematocrit Auto Volume Fraction (Bld) 39.5 % Normal 37-47 [facility] Work Phone: Hemoglobin mass conc (Bld) 13.7 g/dL Normal 12.0-16.0 [facility] Work Phone: Lymphocytes/100 WBC Auto (Bld) 43.1 % Abnormal 19-41 [facility] Work Phone: MCH Auto Entitic mass (RBC) 33.1 pg Abnormal 27.0-32.0 [facility] Work Phone: MCHC Auto mass conc (RBC) 34.7 g/dL Normal 32-36 [facility] Work Phone: MCV Auto Entitic volume (RBC) 95.4 fL Normal 81-99 [facility] Work Phone: Monocytes/100 WBC Auto (Bld) 14.0 % Abnormal 0-10 [facility] Work Phone: Neutrophils Auto #/vol (Bld) 1.1 3/uL Abnormal 2.0-7.7 [facility] Work Phone: Neutrophils/100 WBC Auto (Bld) 38.9 % Abnormal 47-70 [facility] Work Phone: Platelet mean volume Auto Entitic volume (Bld) 9.5 fL Normal 6.5-12.0 [facility] Work Phone: Platelets Auto #/vol (Bld) 196 10*3/uL Normal 150-450 [facility] Internal Medicine Work Phone: RBC Auto #/vol (Bld) 4.15 {M/mm3} Abnormal 4.2-5.4 Co [facility] Work Phone: WBC Auto #/vol (Bld) 2.9 10*3/uL Abnormal 4.4-11.0 Com [facility] Work Phone: COMP METABOLICOrdered By: Sy stem Chip Crusher Operator on 01-13-2011 Albumin mass conc 3.7 g/dL Normal 3.4-5.[address] [facility] Internal [facility] Work Phone: Albumin/Globulin mass ratio 1.2 {RATIO} Normal 0.9-2.4 [facility] Internal Medicine Work Phone: ALP enzyme act/vol 54 U/L Normal 50-136 [facility] Work Phone: ALT enzyme act/vol 29 U/L Normal 12-78 [facility] Internal Medicine Work Phone: Anion gap 3 molar conc 10 mmol/L Normal 5-15 Co [facility] Internal Medicine Work Phone: AST enzyme act/vol 28 U/L Normal 15-37 [facility] Work Phone: Bilirubin mass conc 1.40 mg/dL Abnormal 0.00-1.00 Compr ensive Internal Medicine Work Phone: Calcium mass conc 8.5 mg/dL Normal 8.5-10.[address] [facility] Work Phone: Chloride molar conc 102 mmol/L Normal 98-107 Compr ensive Internal Medicine Work Phone: CO2 molar conc 25.0 mmol/L Normal 21.0-32.0 Comprehen [facility] Internal [facility] Work Phone: Creatinine mass conc 0.7 mg/dL Normal 0.6-1.0 Comp rehensive Internal Medicine Work Phone: Globulin Calculated mass conc (S) 3.2 g/dL Normal 2.7-4.2 [facility] Work Phone: Glucose mass conc 76 mg/dL Normal 70-110 Compreh ensive Internal Medicine Work Phone: Potassium molar conc 3.9 mmol/L Normal 3.5-5.1 Comp rehensive Internal Medicine Work Phone: Protein mass conc 6.9 g/dL Normal 6.4-8.2 Compreh ensive Internal Medicine Work Phone: Sodium molar conc 137 mmol/L Normal 136-145 Compreh ensive Internal Medicine Work Phone: Urea nitrogen mass conc 13 mg/dL Normal 7-18 [facility] Work Phone: Urea nitrogen/Creatinine mass ratio 18.6 {RATIO} Normal 10-20 [facility] Work Phone: DEXA BONE DENSITY STUDY (HP) Ordered By: Toolmaker on 01-13-2011 DEXA BONE DENSITY STUDY (HP) See Note Normal [facility] Work Phone: Comment on above: CLINICAL:Female, 70 years old. The patient is postmenopausal. EXAMINATION:DUAL ENERGY X-RAY ABSORPTIOMETRY / DEXA. TECHNIQUE:Bone Mineral Density (BMD) measurements of lumbar spine and bilateralhipswere obtained using a [employer] scanner.. COMPARISON:Comparison is made with prior study dated March 26, 2009. FINDINGS: Lumbar Spine (L1-L4): g/cm2 (0.991) / T-score (-1.6) / Z-score (0.4)Left Femur Total: g/cm2 (0. 695) / T-score (-2.5) / Z-score (-0.7)Right Femur Total: g/cm2 (0.659) / T-score (-2.8) / Z-score (-0.9) Since prior study, there has been an improvement of 6.4% in the bonedensity. IMPRESSION:The patient is considered osteopenic, as outlined above, according toWorldHealth Organization (WHO) criteria. Fracture risk is moderate. Reference Information:The T-score is the number of standard deviations above or below thestandard which is normal for young adults at their peak bone mineraldensity. The World Health Organization (WHO) interprets the T-scores asfollows: Above -1 Normal bone densityBetween -1 and -2.5 OsteopeniaEqual to / or below -2.5 Osteoporosis As a practical clinical guideline, osteopenia may be graded as follows:Mild -1 through -1.5Moderate -1.6 through -2.0Severe -2.1 through -2.4 The Z-score is the number of standard deviations above or below age-matchedcontrols. A Z-score of less than -1.5 would be considered abnormal. References:1. NIH Osteoporosis and Related Bone Diseases http://www.osteo.org2. International Society for Clinical Densitometry http://www.iscd.org3. National Osteoporosis Foundation http://www.nof.org Dictated on 01/13/11 1027 by Afia Frye MD on 01/13/112250 by ITS IMPORTSign by Per Frye MD on 01/13/112251 Sign by: Per Frye MD MAMMOGRAPHY - BILATE RAL SCREENING INDICATION:Female, 70 years old. Routine annual screening examination. PERTINENT HISTORY:Non-contributory. TECHNIQUE:Digital examination. Mediolateral oblique (MLO) and craniocaudad (CC)views of both breasts were obtained. CAD was performed on this study. COMPARISON:Comparison is made with prior study dated March 26, 2009. FINDINGS:The breast composition is heterogeneously dense. There are no masses or suspicious microcalcifications. No other significant abnormalities are identified. There has been nosignificant change since the prior study. IMPRESSION:Normal bilateral screening mammogram. Yearly follow-up recommended. ASSESSMENT CATEGORY:BIRADS Category 2: Benign finding(s). A letter regarding these resultswill be sent to the patient by the facility within 30 days. Approximately 10% of breast cancers are not detected by mammography. Anormal mammogram should not delay biopsy of a clinically suspiciousabnormality. Dictated on 01/13/11 1006 by Afia Frye MD on 01/14/11316 by ITS IMPORTSign by Per Frye MD on 01/14/11317 Sign by: Per Frye MD LIPIDOrdered By: System Evita davis on 01-13-2011 Cholesterol in HDL mass conc 6 mg/dL Abnormal [facility] Work Phone: Comment on above: Reference Range HDL <40 mg/dL Low HDL Cholesterol HDL >or= 60 mg/dL High HDL Cholesterol Cholesterol in LDL mass conc 155 mg/dL Abnormal 0-130 [facility] Work Phone: Cholesterol in VLDL mass conc 5 mg/dL Normal 5-40 [facility] Work Phone: Cholesterol mass conc 166 mg/dL Normal Com prehensive Internal Medicine Work Phone: Comment on above: <200 mg/dL Desirable 200-240 mg/dL Borderline >240 mg/dL High Risk Triglyceride mass conc 25 mg/dL Normal Co mprehensive Internal Medicine Work Phone: Comment on above: Serum Triglycerides Reference Interval Normal <150 mg/dL Borderline high 150 - 199 mg/dL High 200 - 499 mg/dL Very High > or = 500 mg/dL TSHOrdered By: System Manage r on 01-13-2011 Thyrotropin Qn 6.19 {uIU/mL} Abnormal 0.358-3.74 Compreh ensive Internal Medicine Work Phone: FREE [id number] By: System Leeanne portillo on 11-27-2009 T3 free mass conc 2.0 pg/mL Abnormal 2.18-3.98 Compreh ensive Internal Medicine Work Phone: T4 FREE DIRECTOrdered By: Sy stem Chip Crusher Operator on 11-27-2009 T4 free mass conc 1.2 ng/dL Abnormal 0.76-1.146 Compreh ensive Internal Medicine Work Phone: TSHOrdered By: System [employer] r on 11-27-2009 Thyrotropin Qn 1.42 {uIU/mL} Normal 0.358-3.74 Compreh ensive Internal Medicine Work Phone: Calcium, 24Hr UrineOrdered B y: Toolmaker on 05-01-2009 Calcium mass conc (24H U) 7.1 mg/dL Normal [facility] Work Phone: Calcium mass/time (24H U) 213.0 {mg/24_hr} Normal 100.0-300.0 [facility] Work Phone: PARATHORMONE ([id number])Ordered By: Yuli Schaefer on 04-29-2009 Parathyrin.intact mass conc 22 pg/mL Normal 15-65 [facility] Work Phone: Comment on above: PATIENT NOT FASTINGP ERFORMED BY: GABRIELA [employer]70 [address] GenAudioCape Fear Valley [facility] [id number] SPEP ([id number])Ordered By: Yuil Schaefer on 04-29-2009 Albumin mass conc 4.3 g/dL Normal 3.2-5.6 Compreh ensive Internal Medicine Work Phone: Comment on above: PATIENT NOT FASTINGC linical Information: ADD DRAW FEE [id number], [id number] PERFORMED BY: GABRIELA [employer]70 [address] GenAudioCape Fear Valley [facility] [id number] Albumin/Globulin mass ratio 1.5 {ratio} Normal 0.7-2.0 [facility] Work Phone: Comment on above: PATIENT NOT FASTINGC linical Information: ADD DRAW FEE [id number], [id number] 8 PERFORMED BY: GABRIELA [employer]6370 [address] La CruzAppCastFormerly [facility], [facility] [id number] Alpha 1 globulin Elph mass conc 0.2 g/dL Normal 0.1-0.4 [facility] Work Phone: Comment on above: PATIENT NOT FASTINGC linical Information: ADD DRAW FEE [id number], [id number] 8 PERFORMED BY: [employer]70 [address] GenAudioCape [facility] [id number] Alpha 2 globulin Elph mass conc 0.6 g/dL Normal 0.4-1.2 [facility] Work Phone: Comment on above: PATIENT NOT FASTINGC linical Information: ADD DRAW FEE [id number], J0337 8 PERFORMED BY: OfferIQlin6370 [facility] [id number] Beta globulin Elph mass conc 1.0 g/dL Normal 0.6-1.3 [facility] Work Phone: Comment on above: PATIENT NOT FASTINGC linical Information: ADD DRAW FEE [id number], [id number] 8 PERFORMED BY: [employer] Bekdci8282 [facility] [id number] Gamma globulin Elph mass conc 1.1 g/dL Normal 0.5-1.6 [facility] Work Phone: Comment on above: PATIENT NOT FASTINGC linical Information: ADD DRAW FEE [id number], J8083 8 PERFORMED BY: [employer] Kibbri6420 [facility] [id number] Globulin Calculated mass conc (S) 2.9 g/dL Normal 2.0-4.5 [facility] Work Phone: Globulin mass conc (S) 2.9 g/dL Normal 2.0-4.5 Co [facility] Internal Medicine Work Phone: Comment on above: PATIENT NOT FASTINGC linical Information: ADD DRAW FEE 134564, J4302 8 PERFORMED BY: [employer] Yghtbj9465 [facility] [id number] Laboratory comment Mik (Report) SPRCS Normal [facility] Work Phone: Comment on above: Protein electrophore sis scan will follow via computer, mail, orcourier delivery. PATIENT NOT FASTINGC linical Information: ADD DRAW FEE 212979, J0337 8 PERFORMED BY: [employer] Efjdlj4022 [facility] [id number] Protein mass conc 7.2 g/dL Normal 6.0-8.[address] [facility] Internal Medicine Work Phone: Comment on above: PATIENT NOT FASTINGC linical Information: ADD DRAW FEE [id number], J0342 8 PERFORMED BY: [employer] Virrzy6745 [facility] [id number] Protein.monoclonal Elph mass conc Not Observed Normal [facility] Work Phone: Comment on above: PATIENT NOT FASTINGC linical Information: ADD DRAW FEE [id number], J0337 8 PERFORMED BY: GABRIELA [employer]6370 [email or web address] [place] [id number] Vitamin D Hydroxy ([id number])Ord ered By: Yuli Schaefer on 04-29-2009 Calcitriol mass conc 36.9 ng/mL Normal 32.0-100.0 Comp rehensive Internal Medicine Work Phone: Comment on above: Recent studies consi giovanna the lower limit of 32.0 ng/mL to be athreshold for optimal health.Raj TINAJERO. J Nutr. 2004;135(2):317-22. PATIENT NOT FASTINGP ERFORMED BY: GABRIELA [employer]6370 [facility]BentP[facility] [id number] DEXA BONE DENSITY STUDY (HP) Ordered By: Toolmaker on 03-26-2009 DEXA BONE DENSITY STUDY (HP) See Note Normal [facility] Work Phone: Comment on above: Exam Number: [id number] BONE DENSITOMETRY HISTORYOsteopenia. TECHNIQUE Bone densitometry of the lumbar spine and both hips is now beingperformed. The best criteria for evaluation of osteoporosis is theT-value, which represents the comparison of the patient's bone mass cristela expected peak bone mass. For most patients, the mean T-value of R8uhlpook L4 is used to evaluate the lumbar spine. To evaluate the hip,the lower T-value of the femoral neck or total hip is used. FINDINGSIn this patient, the mean T-value of L1 through L4 is -2.1, which isin the range of osteopenia. Bone mineral density is measured at 5.4%less than in 1998. Digital lateral view for evaluation of vertebraldeformity only demonstrates no compression fractures. The T-value ofthe left femoral neck is -2.6, which is in the range of osteoporosis. The T-value of the total left hip is -2.5, which is in the range ofosteoporosis. Bone mineral density is measured at 7.7% less than ph1486. The T-value of the right femoral neck is -2.7, which is in therange of osteoporosis. The T-value of the total right hip is -2.9,which is in the range of osteoporosis. IMPRESSIONThere is osteopenia of the lumbar spine. There is osteoporosis ofboth hips. Reported By: MACY ESCOBEDO M.D. Exam Number: [id number] MAMMOGRAM, BILATERAL SCREENING DIGITAL AND CAD HISTORYRoutine screening. Full field digital images were obtained in mediolateral oblique andcraniocaudal projections. CAD images were reviewed. The current study is compared to the examinations of March 22, 2007, andMarch 21, 2008. On the right, a small metal marker is placed on an accessory nipple. There is a severe extent of fibroglandular parenchyma present. Thereis no skin thickening or retraction, architectural distortion, orcluster of suspicious microcalcifications. There is no dominant massor significant interval change seen. If there is no suspiciouspalpable abnormality, followup mammogram in 1 year is recommended. IMPRESSIONThere is no radiographic evidence of malignancy identified. FINAL ASSESSMENTBIRADS Category 2 - Benign. A letter regarding these results has been sent to the patient. This interpretation was rendered by a radiologist certified under theMammography Quality Standards Act of 1992 (MQSA). The mammograms werealso examined with computer-aided detection software ([employer], [employer] Reported By: MACY ESCOBEDO M.D. CBC WITH MANUAL DIFF ([id number]) Ordered By: Yuli Schaefer on 03-12-2009 Basophils #/vol (Bld) 0.0 {x10E3/uL} Normal 0.0-0.2 [facility] Work Phone: Comment on above: PATIENT NOT FASTINGC linical Information: ADD DRAW FE [id number] ADD J0 3378 PERFORMED BY: OfferIQlin6370 [facility] CruzGeneral [facility] [id number] Basophils (Bld) [#/Vol] 0.0 10*3/uL Normal 0.0-0.2 [facility]; [facility] Work Phone: Comment on above: PATIENT NOT FASTINGC linical Information: ADD DRAW FE [id number] ADD J0 3378 PERFORMED BY: OfferIQlin6370 [address] GenAudioCape [facility] [id number] Basophils Auto #/vol (Bld) 0.0 {x10E3/uL} Normal 0.0-0.2 [facility] Work Phone: Basophils/100 WBC (Bld) 1 % Normal 0-3 [facility] Work Phone: Comment on above: PATIENT NOT FASTINGC linical Information: ADD DRAW FE [id number] ADD J0 3378 PERFORMED BY: GABRIELA [employer]70 ReGenX BiosciencesFormerly [facility] [id number] Basophils/100 WBC Auto (Bld) 1 % Normal 0-3 [facility] Work Phone: Eosinophils #/vol (Bld) 0.1 {x10E3/uL} Normal 0.0-0.4 [facility] Work Phone: Comment on above: PATIENT NOT FASTINGC linical Information: ADD DRAW FE [id number] ADD J0 3378 PERFORMED BY: GABRIELA ClassanaFormerly [facility] [id number] Eosinophils (Bld) [#/Vol] 0.1 10*3/uL Normal 0.0-0.4 [facility]; [facility] Work Phone: Comment on above: PATIENT NOT FASTINGC linical Information: ADD DRAW FE [id number] ADD J0 3378 PERFORMED BY: GABRIELA OptosecurityC[facility] [id number] Eosinophils Auto #/vol (Bld) 0.1 {x10E3/uL} Normal 0.0-0.4 [facility] Work Phone: Eosinophils/100 WBC (Bld) 3 % Normal 0-7 [facility] Work Phone: Comment on above: PATIENT NOT FASTINGC linical Information: ADD DRAW FE [id number] ADD J0 3378 PERFORMED BY: GABRIELA [facility] [id number] Eosinophils/100 WBC Auto (Bld) 3 % Normal 0-7 [facility] Work Phone: Erythrocyte distribution width Auto Ratio (RBC) 12.9 % Normal 11.7-15.0 [facility] Work Phone: Erythrocyte distribution width Ratio (RBC) 12.9 % Normal 11.7-15.0 [facility] Work Phone: Comment on above: PATIENT NOT FASTINGC linical Information: ADD DRAW FE ADD J0 3378 PERFORMED BY: GABRIELA CardSpring Mfocgj2879 [facility] [id number] Hematocrit Auto Volume Fraction (Bld) 40.2 % Normal 34.0-44.0 [facility] Work Phone: Hematocrit Volume Fraction (Bld) 40.2 % Normal 34.0-44.0 [facility] Work Phone: Comment on above: PATIENT NOT FASTINGC linical Information: ADD DRAW FE ADD J0 3378 PERFORMED BY: GABRIELA CardSpring Suyjwq8280 [facility] [id number] Hemoglobin mass conc (Bld) 13.9 g/dL Normal 11.5-15.0 [facility] Work Phone: Comment on above: PATIENT NOT FASTINGC linical Information: ADD DRAW FE [id number] ADD J0 3378 PERFORMED BY: GABRIELA [employer]Spring Eylucm8839 [facility] [id number] Lymphocytes #/vol (Bld) 1.3 {x10E3/uL} Normal 0.7-4.5 [facility] Work Phone: Comment on above: PATIENT NOT FASTINGC linical Information: ADD DRAW FE [id number] ADD J0 3378 PERFORMED BY: GABRIELA CardSpring[address] [id number] Lymphocytes (Bld) [#/Vol] 1.3 10*3/uL Normal 0.7-4.5 [facility]; [facility] Work Phone: Comment on above: PATIENT NOT FASTINGC linical Information: ADD DRAW FE [id number] ADD J0 3378 PERFORMED BY: CardSpringApril [place] [id number] [facility] [id number] Lymphocytes Auto #/vol (Bld) 1.3 {x10E3/uL} Normal 0.7-4.5 [facility] Work Phone: Lymphocytes/100 WBC (Bld) 36 % Normal 14-46 [facility] Work Phone: Comment on above: PATIENT NOT FASTINGC linical Information: ADD DRAW FE [id number] ADD J0 3378 PERFORMED BY: GABRIELA CardSpringGreystone Park Psychiatric HospitalVpojgp9912 [facility] [id number] Lymphocytes/100 WBC Auto (Bld) 36 % Normal 14- [facility] Work Phone: MCH Auto Entitic mass (RBC) 32.7 pg Normal 27.0-34.0 [facility] Internal Medicine Work Phone: MCH Entitic mass (RBC) 32.7 pg Normal 27.0-34.0 [facility] Internal Medicine Work Phone: Comment on above: PATIENT NOT FASTINGC linical Information: ADD DRAW FE [id number] ADD J0 3378 PERFORMED BY: CardSpring Hqlisw[address] [place] [address] [id number] MCHC Auto mass conc (RBC) 34.7 g/dL Normal 32.0-36.0 [facility] Internal [facility] Work Phone: MCHC mass conc (RBC) 34.7 g/dL Normal 32.0-36.0 [facility] Internal Medicine Work Phone: Comment on above: PATIENT NOT FASTINGC linical Information: ADD DRAW FE [id number] ADD J0 3378 PERFORMED BY: CardSpring Phayhh0806 [facility] [id number] MCV Auto Entitic volume (RBC) 94 fL Normal 80-98 [facility] Work Phone: MCV Entitic volume (RBC) 94 fL Normal 80-98 [facility] Internal [facility] Work Phone: Comment on above: PATIENT NOT FASTINGC linical Information: ADD DRAW FE [id number] ADD J0 3378 PERFORMED BY: CardSpringApril [place] [id number] [facility] [id number] Monocytes #/vol (Bld) 0.3 {x10E3/uL} Normal 0.1-1.0 [facility] Internal [facility] Work Phone: Comment on above: PATIENT NOT FASTINGC linical Information: ADD DRAW FE [id number] ADD J0 3378 PERFORMED BY: [place] [id number] [facility] [id number] Monocytes (Bld) [#/Vol] 0.3 10*3/uL Normal 0.1-1.0 [facility]; [facility] Work Phone: Comment on above: PATIENT NOT FASTINGC linical Information: ADD DRAW FE ADD J0 3378 PERFORMED BY: [address] [id number] Monocytes Auto #/vol (Bld) 0.3 {x10E3/uL} Normal 0.1-1.0 [facility] Work Phone: Monocytes/100 WBC (Bld) 9 % Normal - [facility] Work Phone: Comment on above: PATIENT NOT FASTINGC linical Information: ADD DRAW FE ADD J0 3378 PERFORMED BY: [address] [id number] Monocytes/100 WBC Auto (Bld) 9 % Normal - [facility] Work Phone: Neutrophils #/vol (Bld) 1.8 {x10E3/uL} Normal 1.8-7.8 [facility] Work Phone: Comment on above: PATIENT NOT FASTINGC linical Information: ADD DRAW FE ADD J0 3378 PERFORMED BY: [place] [id number] [facility] [id number] Neutrophils (Bld) [#/Vol] 1.8 10*3/uL Normal 1.8-7.8 [facility]; [facility] Work Phone: Comment on above: PATIENT NOT FASTINGC linical Information: ADD DRAW FE ADD J0 3378 PERFORMED BY: [place] [id number] [facility] [id number] Neutrophils Auto #/vol (Bld) 1.8 {x10E3/uL} Normal 1.8-7.8 [facility] Work Phone: Neutrophils/100 WBC (Bld) 51 % Normal 40-74 [facility] Work Phone: Comment on above: PATIENT NOT FASTINGC linical Information: ADD DRAW FE [id number] ADD J0 3378 PERFORMED BY: GABRIELA CardSpringyady Uoenba2248 [facility] [id number] Neutrophils/100 WBC Auto (Bld) 51 % Normal 40-74 [facility] Work Phone: Platelets #/vol (Bld) 218 {x10E3/uL} Normal 140-415 [facility] Work Phone: Comment on above: Please note refere nce interval change PATIENT NOT FASTINGC linical Information: ADD DRAW FE [id number] ADD J0 3378 PERFORMED BY: GABRIELA CardSpringyady Go![employer] [place] GenAudioC[facility] [id number] Platelets (Bld) [#/Vol] 218 10*3/uL Normal 140-415 [facility]; [facility] Work Phone: Comment on above: Please note refere nce interval change PATIENT NOT FASTINGC linical Information: ADD DRAW FE 307062 ADD J0 3378 PERFORMED BY: GABRIELA CardSpringyady Azihko5704 [place] GenAudioC[facility] [id number] Platelets Auto #/vol (Bld) 218 {x10E3/uL} Normal 140-415 [facility] Work Phone: Comment on above: Please note refere nce interval change RBC #/vol (Bld) 4.26 {x10E6/uL} Normal 3.80-5.10 Comp [facility] Internal Medicine Work Phone: Comment on above: PATIENT NOT FASTINGC linical Information: ADD DRAW FE [id number] ADD J0 3378 PERFORMED BY: OfferIQlin6370 [facility] [id number] RBC (Bld) [#/Vol] 4.26 10*6/uL Normal 3.80-5.10 Compr ens[facility]; [facility] Work Phone: Comment on above: PATIENT NOT FASTINGC linical Information: ADD DRAW FE 636690 ADD J0 3378 PERFORMED BY: GABRIELA [facility] Dfmzrf7443 [address] [facility] [id number] RBC Auto #/vol (Bld) 4.26 {x10E6/uL} Normal 3.80-5.10 [facility] Work Phone: WBC #/vol (Bld) 3.6 {x10E3/uL} Abnormal 4.0-10.[address] [facility] Work Phone: Comment on above: PATIENT NOT FASTINGC linical Information: ADD DRAW FE 448992 ADD J0 3378 PERFORMED BY: GABRIELA [employer] Zhlhwa9563 [facility] [id number] WBC (Bld) [#/Vol] 3.6 10*3/uL Abnormal 4.0-10.5 Compre [facility] Internal Medicine; [facility] Work Phone: Comment on above: PATIENT NOT FASTINGC linical Information: ADD DRAW FE [id number] ADD J0 3378 PERFORMED BY: GABRIELA [facility] Ketcql2375 [facility] [id number] WBC Auto #/vol (Bld) 3.6 {x10E3/uL} Abnormal 4.0-10.5 [facility] Work Phone: METABOLIC PANEL, COMPREHENSI VE ([id number])Ordered By: Yuli Schaefer on 03-12-2009 Albumin mass conc 4.4 g/dL Normal 3.5-4.8 Compreh ensive [facility] Work Phone: Comment on above: PATIENT NOT FASTINGP ERFORMED BY: GABRIELA [facility] Zbjwjf9921 [facility] [id number] Albumin/Globulin mass ratio 1.6 {ratio} Normal 1.1-2.5 [facility] Work Phone: Comment on above: PATIENT NOT FASTINGP ERFORMED BY: GABRIELA [facility] Vzhudd2542 [facility] [id number] ALP [Catalytic activity/Vol] 76 U/L Normal 25-165 [facility]; [facility] Work Phone: Comment on above: PATIENT NOT FASTINGP ERFORMED BY: CB [facility] Yqiict3433 [address] Cruz RoadDublin [place] [id number] ALP enzyme act/vol 76 [iU]/L Normal 25-165 [facility] Internal Medicine Work Phone: Comment on above: PATIENT NOT FASTINGP ERFORMED BY: CB [facility] Bbsuig4861 [address] Cruz RoadDublin [place] [id number] ALT [Catalytic activity/Vol] 17 U/L Normal 0-40 [facility]; [facility] Internal Medicine Work Phone: Comment on above: PATIENT NOT FASTINGP ERFORMED BY: CB [facility] Ycohcj2878 [address] Cruz RoadDublin [place] [id number] ALT enzyme act/vol 17 [iU]/L Normal 0-40 [facility] Internal Medicine Work Phone: Comment on above: PATIENT NOT FASTINGP ERFORMED BY: CB [facility] Xzpgsc0622 [address] Cruz RoadDublin [place] [id number] AST [Catalytic activity/Vol] 27 U/L Normal 0-40 [facility]; [facility] Internal Medicine Work Phone: Comment on above: PATIENT NOT FASTINGP ERFORMED BY: CB [facility] Otlgor1733 [address] RoadDublin [place] [id number] AST enzyme act/vol 27 [iU]/L Normal 0-40 [facility] Internal Medicine Work Phone: Comment on above: PATIENT NOT FASTINGP ERFORMED BY: CB [facility] Xquspr7437 [address] RoadDublin [place] [id number] Bilirubin mass conc 1.2 mg/dL Normal 0.1-1.2 [facility] Internal Medicine Work Phone: Comment on above: PATIENT NOT FASTINGP ERFORMED BY: CB [facility] Vpbbpw2107 [address] Cruz RoadDublin [place] [id number] Calcium mass conc 9.4 mg/dL Normal 8.5-10.6 [facility] Internal Medicine Work Phone: Comment on above: PATIENT NOT FASTINGP ERFORMED BY: CB [facility] Oezoqy8322 [address] Cruz RoadDublin [place] [id number] Chloride molar conc 103 mmol/L Normal 97-108 Compr ehensive Internal Medicine Work Phone: Comment on above: PATIENT NOT FASTINGP ERFORMED BY: GABRIELA Mancini6370 [facility] [id number] CO2 molar conc 22 mmol/L Normal 20-32 Comprehens christo Internal Medicine Work Phone: Comment on above: PATIENT NOT FASTINGP ERFORMED BY: GABRIELA Derrell Hlyyoj0806 [facility] [id number] Creatinine mass conc 0.79 mg/dL Normal 0.57-1.00 Comp rehensive Internal Medicine Work Phone: Comment on above: PATIENT NOT FASTINGP ERFORMED BY: GABRIELA Derrell Yjptsn5417 [facility] [id number] GFR/1.73 sq M predicted among blacks MDRD vol rate/area (S/P/Bld) mL/min/{1.73_m2} Normal [facility] Work Phone: Comment on above: Note: Persistent red uction for 3 months or more in an eGFR<60 mL/min/1.73 m2 defines CKD. Patients with eGFR values>/=60 mL/min/1.73 m2 may also have CKD if evidence of persistentproteinuria is present. Additional information may be found [email or web address]. PATIENT NOT FASTINGP ERFORMED BY: GABRIELA Derrell Kpvyht7936 [facility] [id number] GFR/1.73 sq M.predicted MDRD (S/P/Bld) [Vol rate/Area] mL/min/{1.73_m2} Normal [facility] Work Phone: Comment on above: PATIENT NOT FASTINGP ERFORMED BY: GABRIELA Derrell Ttdqfq8610 [facility] [id number] GFR/1.73 sq M.predicted MDRD vol rate/area mL/min/{1.73_m2} Normal [facility] Work Phone: Comment on above: PATIENT NOT FASTINGP ERFORMED BY: GABRIELA Redmondlin6370 [facility] [id number] Globulin Calculated mass conc (S) 2.8 g/dL Normal 1.5-4.5 [facility] Work Phone: Globulin mass conc (S) 2.8 g/dL Normal 1.5-4.5 Co mprehensive [facility] Work Phone: Comment on above: PATIENT NOT FASTINGP ERFORMED BY: GABRIELA Redmondlin6370 [facility] [id number] Glucose mass conc 82 mg/dL Normal 65-99 Compreh ensive [facility] Medicine Work Phone: Comment on above: PATIENT NOT FASTINGP ERFORMED BY: GABRIELA Mancini6370 [facility] [id number] Potassium molar conc 4.7 mmol/L Normal 3.5-5.2 Comp rehensive Internal Medicine Work Phone: Comment on above: PATIENT NOT FASTINGP ERFORMED BY: GABRIELA Neel Redmondlin6370 [facility] [id number] Protein mass conc 7.2 g/dL Normal 6.0-8.5 Compreh ensive [facility] Medicine Work Phone: Comment on above: PATIENT NOT FASTINGP ERFORMED BY: GABRIELA Redmondlin6370 [facility] [id number] Sodium molar conc 139 mmol/L Normal 135-145 Compreh ensive [facility] Medicine Work Phone: Comment on above: PATIENT NOT FASTINGP ERFORMED BY: GABRIELA Shaikh Jawnby5261 [facility] [id number] Urea nitrogen mass conc 8 mg/dL Normal 5-26 [facility] Work Phone: Comment on above: PATIENT NOT FASTINGP ERFORMED BY: GABRIELA Redmondlin6370 [facility] [id number] Urea nitrogen/Creatinine mass ratio 10 mg/mg Normal 8-27 [facility] Work Phone: Comment on above: PATIENT NOT FASTINGP ERFORMED BY: GABRIELA LabSher[facility]6370 [facility] [id number] TSH ([id number])Ordered By: Yuli Schaefer on 03-12-2009 Thyrotropin Qn 2.690 {uIU/mL} Normal 0.450-4.500 Compr ehensive Internal Medicine Work Phone: Comment on above: PATIENT NOT FASTINGP ERFORMED BY: LabCoGreystone Park Psychiatric HospitalEbhdrk3933 [facility] [id number] Thin prep Pap ([id number])Ordered By: Yuli Schaefer on 03-12-2009 Microscopic observation Other stain Nom (Unsp spec) . Normal Comprehens christo Internal Medicine Work Phone: Comment on above: Source.............C ervical;EndocervicalLMP / Prev Treat...TXQ=[id number]. of containers..01 CYTYC Thin Prep VialPATIENT NOT FASTINGClinical Information: ADD [id number] PERFORMED BY: [employer] [place] [address] [id number] Pathology report final diagnosis Narrative SPRCS Normal Comprehensiv e Internal Medicine Work Phone: Comment on above: UNSATISFACTORY FOR E VALUATION.Suggest follow up as clinically appropriate.Specimen processed and examined but unsatisfactory for evaluation becauseof insufficient cellularity.V76.2 ; Screening for malignant neoplasm of the cervixTahir Flores, Wheel Polisher (ASC)Alesha Soria, Supervisory Wheel Polisher (ASC) Source.............C ervical;EndocervicalLMP / Prev Treat...VHX=[id number]. of containers..01 CYTYC Thin Prep VialPATIENT NOT FASTINGClinical Information: ADD [id number] PERFORMED BY: [employer] [place] [address] [id number] Thin prep Pap ([id number]) PAPSMR Normal Com prehensive Internal Medicine Work Phone: Comment on above: The Pap smear is a s creening test designed to aid in the detection ofpremalignant and malignant conditions of the uterine cervix. It is not adiagnostic procedure and should not be used as the sole means of detectingcervical cancer. Both false-positive and false-negative reports do occur. .The HPV DNA reflex criteria were not met with this specimen resulttherefore, no HPV testing was performed. . Source.............C ervical;EndocervicalLMP / Prev Treat...UHW=[id number]. of containers..01 CYTYC Thin Prep VialPATIENT NOT FASTINGClinical Information: ADD [id number] PERFORMED BY: [facility] [id number] BILAT SCRN DIGITAL & CADOrde red By: Toolmaker on 03-31-2008 BILAT SCRN DIGITAL & CAD See Note Normal [facility] Work Phone: Comment on above: Exam Number: [id number] SCREENING MAMMOGRAMS WITH CAD COMPARISON STUDIESJun2006, and February 13, 2006. TECHNIQUERoutine craniocaudal and mediolateral oblique views are obtained ofeach breast using digital technique. CAD is also performed. There is heterogeneously dense breast density bilaterally. There isno worrisome mass, typically malignant-type microcalcification orarchitectural distortion in either breast. There is no significantinterval change. IMPRESSIONNo mammographic evidence for cancer in either breast. Routinebilateral annual screening assessment is recommended. BIRADS Category 1. Negative. A letter regarding the results has been sent to the patient. This interpretation was rendered by a radiologist certified under theMammography Quality Standards Act of 1992 (MQSA). The mammograms werealso examined with computer-aided detection software ([employer], [employer] Reported By: ULYSSES GALVEZ M.D. CBCD,SMEAR DIFFOrdered By: Sunshine ystem Chip Crusher Operator on 02-26-2008 Band form neutrophils/100 WBC Manual cnt (Bld) 1 % Normal 0-5 [facility] Work Phone: Eosinophils/100 WBC Auto (Bld) 3 % Normal 0-5 [facility] Work Phone: Erythrocyte distribution width Auto Ratio (RBC) 12.4 % Normal 11.6-14.6 [facility] Internal Medicine Work Phone: Hematocrit Auto Volume Fraction (Bld) 38.0 % Normal 37-47 [facility] Internal Medicine Work Phone: Hemoglobin mass conc (Bld) 13.2 g/dL Normal 12.0-16.0 [facility] Internal [facility] Work Phone: Lymphocytes/100 WBC Auto (Bld) 42 % Abnormal 19-41 [facility] Internal Medicine Work Phone: MCH Auto Entitic mass (RBC) 32.6 pg Abnormal 27.0-32.0 [facility] Internal Medicine Work Phone: MCHC Auto mass conc (RBC) 34.6 g/dL Normal 32-36 [facility] Internal [facility] Work Phone: MCV Auto Entitic volume (RBC) 94.1 fL Normal 81-99 [facility] Internal [facility] Work Phone: Platelets Auto #/vol (Bld) 222 10*3/uL Normal 150-450 [facility] Internal Medicine Work Phone: RBC Auto #/vol (Bld) 4.04 {M/mm3} Abnormal 4.2-5.4 Co [facility] Work Phone: WBC Auto #/vol (Bld) 3.8 10*3/uL Abnormal 4.4-11.[address] [facility] Work Phone: CBCD,SMEAR DIFF 43 % Abnormal 47-70 [facility] Work Phone: CBCD,SMEAR DIFF 11 % Abnormal 0-10 [facility] Internal Medicine Work Phone: CBCD,SMEAR DIFF SeeNote Normal [facility] Internal Medicine Work Phone: Comment on above: Result: NORM C+C Result: ADEQUATE CBCD,SMEAR DIFF 100 1 Normal [facility] Internal [facility] Work Phone: COMP METABOLICOrdered By: Jose A stem Chip Crusher Operator on 02-26-2008 Albumin mass conc 3.5 g/dL Normal 3.4-5.[address] [facility] [facility] Internal Medicine Work Phone: Albumin/Globulin mass ratio 1.1 {RATIO} Normal 0.9-2.4 [facility] Internal Medicine Work Phone: ALP enzyme act/vol 71 U/L Normal 50-136 [facility] Internal Medicine Work Phone: ALT enzyme act/vol 32 [iU]/L Normal 30-65 [facility] Internal Medicine Work Phone: Anion gap 3 molar conc 8 mmol/L Normal 5-15 Co mprehensive Internal Medicine Work Phone: AST enzyme act/vol 25 U/L Normal 15-37 Compre [facility] Internal Medicine Work Phone: Bilirubin mass conc 0.96 mg/dL Normal 0.00-1.00 Compr [facility] Internal Medicine Work Phone: Calcium mass conc 8.6 mg/dL Normal 8.5-10.[address] Work Phone: Chloride molar conc 101 mmol/L Normal 98-107 Compr [facility] Internal Medicine Work Phone: CO2 molar conc 27.4 mmol/L Normal 21.0-32.0 Comprehen [facility] Internal Medicine Work Phone: Creatinine mass conc 0.8 mg/dL Normal 0.6-1.0 [facility] Internal Medicine Work Phone: Globulin Calculated mass conc (S) 3.1 g/dL Normal 2.7-4.2 [facility] Internal Medicine Work Phone: Glucose mass conc 78 mg/dL Normal 70-[address] [facility] Work Phone: Potassium molar conc 3.7 mmol/L Normal 3.5-5.1 Comp [facility] Work Phone: Protein mass conc 6.6 g/dL Normal 6.4-8.[address] [facility] Work Phone: Sodium molar conc 136 mmol/L Normal 136-[address] [facility] Work Phone: Urea nitrogen mass conc 11 mg/dL Normal 7-18 [facility] Work Phone: Urea nitrogen/Creatinine mass ratio 13.8 {RATIO} Normal 10-20 [facility] Work Phone: LIPIDOrdered By: System Evita ryan on 02-26-2008 Cholesterol in HDL mass conc 68 mg/dL Normal [facility] Work Phone: Comment on above: Reference Range HDL <40 mg/dL Low HDL Cholesterol HDL >or= 60 mg/dL High HDL Cholesterol Cholesterol in LDL mass conc 72 mg/dL Normal 0-130 [facility] Work Phone: Cholesterol in VLDL mass conc 7 mg/dL Normal 5-40 [facility] Work Phone: Cholesterol mass conc 147 mg/dL Normal Com prehensive Internal Medicine Work Phone: Comment on above: <200 mg/dL Desirable 200-240 mg/dL Borderline >240 mg/dL High Risk Triglyceride mass conc 34 mg/dL Normal Co mprehensive Internal Medicine Work Phone: Comment on above: Serum Triglycerides Reference Interval Normal <150 mg/dL Borderline high 150 - 199 mg/dL High 200 - 499 mg/dL Very High > or = 500 mg/dL TSHOrdered By: System Manage r on 02-26-2008 Thyrotropin Qn 5.73 {uIU/mL} Abnormal 0.34-4.82 Compreh ensive Internal Medicine Work Phone: DEXA BONE DENSITY STUDY (HP) Ordered By: Toolmaker on 03-22-2007 DEXA BONE DENSITY STUDY (HP) See Note Normal [facility] Work Phone: Comment on above: Exam Number: [id number] BONE DENSITOMETRY HISTORYOsteopenia. TECHNIQUE Bone densitometry of the lumbar spine and left hip was performed. Thebest criteria for evaluation of osteoporosis is the T-value whichrepresents the comparison of the patient's bone mass to an expectedpeak bone mass. For most patients, the mean T-value of L1 through L4and the T-value of the total left hip are most useful. FINDINGSIn this patient, the mean T-value of L1 through L4 is -2.1 which is inthe range of osteopenia. Digital lateral view for evaluation ofvertebral deformity only demonstrates no obvious compressionfractures. Bone mineral density is measured at 6% less than in 1998and 3% more than in 2004. The T-value of the left femoral neck is -2.8 which is in the range ofosteoporosis. T-value of the total left hip is -2.5 which is in therange of osteoporosis. Bone mineral density is measured at 7.7% lessthan in 1998 and 1.6% less than in 2004. IMPRESSIONThere is osteopenia of the lumbar spine. There is osteoporosis of thetotal left hip. Reported By: MACY ESCOBEDO M.D. Exam Number: [id number] MAMMOGRAPHY, BILATERAL SCREENING DIGITAL AND CAD HISTORYRoutine screening. Full field digital images were obtained in mediolateral oblique andcraniocaudal projections. CAD images were reviewed. The current study is compared to the examinations of December 2004 andFebruary 2006. There is moderately dense fibroglandular parenchyma present. There isno skin thickening or retraction, architectural distortion, or clusterof suspicious microcalcifications. There are scattered calcificationspresent. If there is no suspicious palpable abnormality, followupmammogram in 1 year is recommended. IMPRESSIONThere is no radiographic evidence of malignancy identified. FINAL ASSESSMENTBenign findings. BIRADS Category 2. A letter regarding these results has been sent to the patient. This interpretation was rendered by a radiologist certified under theMammography Quality Standards Act of 1992 (MQSA). The mammograms werealso examined with computer-aided detection software ([employer], [employer] Reported By: MACY ESCOBEDO M.D. CBCDOrdered By: [facility] Basophils/100 WBC Auto (Bld) 1.5 % Abnormal 0-1 [facility] Work Phone: Eosinophils/100 WBC Auto (Bld) 2.7 % Normal 0-5 [facility] Work Phone: Erythrocyte distribution width Auto Ratio (RBC) 12.8 % Normal 11.6-14.6 [facility] Work Phone: Hematocrit Auto Volume Fraction (Bld) 38.7 % Normal 37-47 [facility] Work Phone: Hemoglobin mass conc (Bld) 13.6 g/dL Normal 12.0-16.0 [facility] Work Phone: Lymphocytes/100 WBC Auto (Bld) 32.8 % Normal 19-41 [facility] Work Phone: MCH Auto Entitic mass (RBC) 32.3 pg Abnormal 27.0-32.0 [facility] Work Phone: MCHC Auto mass conc (RBC) 35.3 g/dL Normal 32-36 [facility] Work Phone: MCV Auto Entitic volume (RBC) 91.6 fL Normal 81-99 [facility] Work Phone: Monocytes/100 WBC Auto (Bld) 12.5 % Abnormal 0-10 [facility] Work Phone: Neutrophils/100 WBC Auto (Bld) 50.5 % Normal 47-70 [facility] Work Phone: Platelet mean volume Auto Entitic volume (Bld) 8.9 fL Normal 6.5-12.0 [facility] Work Phone: Platelets Auto #/vol (Bld) 227 10*3/uL Normal 150-450 [facility] Work Phone: RBC Auto #/vol (Bld) 4.22 {M/mm3} Normal 4.2-5.4 [facility] Work Phone: WBC Auto #/vol (Bld) 3.5 10*3/uL Abnormal 4.4-11.0 [facility] Work Phone: COMP METABOLICOrdered By: Sy stem Chip Crusher Operator on 02-13-2007 Albumin mass conc 3.6 g/dL Normal 3.4-5.0 [facility] Work Phone: Albumin/Globulin mass ratio 1.0 {RATIO} Normal 0.9-2.4 [facility] Work Phone: ALP enzyme act/vol 65 U/L Normal 50-136 [facility] Work [facility]: ALT enzyme act/vol 34 [iU]/L Normal 30-65 Compre [facility] Work Phone: Anion gap 3 molar conc 5 mmol/L Normal 5-15 [facility] Work Phone: AST enzyme act/vol 23 U/L Normal 15-37 Compre [facility] Work Phone: Bilirubin mass conc 1.22 mg/dL Abnormal 0.00-1.00 Compr [facility] Work Phone: Calcium mass conc 8.7 mg/dL Normal 8.5-10.1 [facility] Work Phone: Chloride molar conc 102 mmol/L Normal 98-107 Compr [facility] Work Phone: CO2 molar conc 28.8 mmol/L Normal 22.0-29.0 [facility]prehen [facility] Work Phone: Creatinine mass conc 0.7 mg/dL Normal 0.6-1.0 Comp rehens[facility] Work Phone: Globulin Calculated mass conc (S) 3.6 g/dL Abnormal 2.3-3.5 [facility] Work Phone: Glucose mass conc 81 mg/dL Normal 70-110 [facility] Work Phone: Potassium molar conc 4.1 mmol/L Normal 3.5-5.1 Comp [facility] Work Phone: Protein mass conc 7.2 g/dL Normal 6.4-8.2 [facility] Work Phone: Sodium molar conc 136 mmol/L Normal 136-145 [facility] Work Phone: Urea nitrogen mass conc 10 mg/dL Normal 7-18 [facility] Work Phone: Urea nitrogen/Creatinine mass ratio 14.3 {RATIO} Normal 10-20 [facility] Work Phone: TSHOrdered By: System Manage r on 02-13-2007 Thyrotropin Qn 3.90 {uIU/mL} Normal 0.34-4.82 [facility] Work Phone: Vital Signs Date Time Vital Sign Value Performing Clinician Facility 04-09-2025 23:45-0400 Body temperature 98.2 [degF] Martina NESBITTC Work Phone: [facility] 04-09-2025 23:45-0400 Diastolic blood pressure 87 mm[Hg] Martina Antoineam [facility] Work Phone: [facility] 04-09-2025 23:45-0400 Heart rate 87 /min Martina Antoineam [employer] Work Phone: [facility] 04-09-2025 23:45-0400 Respiratory rate 18 /min Martina Antoineam [employer] [employer] Work Phone: [facility] 04-09-2025 23:45-0400 SaO2% (BldA) [Mass fraction] 99 % Martina Antoineam [facility] [employer] Work Phone: [facility] 04-09-2025 23:45-0400 Systolic blood pressure 165 mm[Hg] Martina Antoineam [employer] [employer] Work Phone: [facility] 04-09-2025 19:34-0400 Body height 160.02 cm Martina Ubaldo [employer] [employer] Work Phone: [facility] 04-09-2025 19:34-0400 Body mass index (BMI) [Ratio] 20.3 kg/m2 Martina Ubaldo [employer] [employer] Work Phone: [facility] 04-09-2025 19:34-0400 Body weight 52.16 kg Martina Ubaldo [employer] Work Phone: [facility] 04-07-2025 11:37-0400 Body height 160.02 cm Martina Ubaldo [employer] Work Phone: [facility] 04-07-2025 11:37-0400 Body mass index (BMI) [Ratio] 19.8 kg/m2 Martina Ubaldo [employer] [employer] Work Phone: [facility] 04-07-2025 11:37-0400 Body temperature 98.3 [degF] Martina Antoineam [employer] [employer] Work Phone: [facility] 04-07-2025 11:37-0400 Body weight 50.8 kg Martina Antoineam [employer] [employer] Work Phone: [facility] 04-07-2025 11:37-0400 Heart rate 79 /min Martina Ubaldo [employer] Work Phone: [facility] 04-07-2025 11:37-0400 Respiratory rate 16 /min Martina Ubaldo [employer] [employer] Work Phone: [facility] 04-07-2025 11:37-0400 SaO2% (BldA) [Mass fraction] 94 % Martina Ubaldo [employer] [employer] Work Phone: [facility] 03-06-2025 08:29-0400 Body mass index (BMI) [Ratio] 19.9 kg/m2 Martina Ubaldo [employer] [employer] Work Phone: [facility] 03-06-2025 08:29-0400 Body weight 51.02 kg Martina Ubaldo [employer] Work Phone: [facility] 03-06-2025 08:29-0400 Diastolic blood pressure 72 mm[Hg] Martina Ubaldo [employer] [employer] Work Phone: [facility] 03-06-2025 08:29-0400 Heart rate 90 /min Martina Ubaldo [employer] [employer] Work Phone: [facility] 03-06-2025 08:29-0400 SaO2% (BldA) [Mass fraction] 98 % Martina Ubaldo [employer] [employer] Work Phone: [facility] 03-06-2025 08:29-0400 Systolic blood pressure 151 mm[Hg] Martina Ubaldo [employer] [employer] Work Phone: [facility] 12-26-2024 08:46-0400 Body height 160.02 cm Martina Ubaldo [employer] [employer] Work Phone: [facility] 12-26-2024 08:46-0400 Body mass index (BMI) [Ratio] 20.4 kg/m2 Martina Ubaldo [employer] [employer] Work Phone: [facility] 12-26-2024 08:46-0400 Body temperature 97.2 [degF] Martina Ubaldo [employer] [employer] Work Phone: [facility] 12-26-2024 08:46-0400 Body weight 52.33 kg Martina Ubaldo [employer] [employer] Work Phone: [facility] 12-26-2024 08:46-0400 Diastolic blood pressure 80 mm[Hg] Martina Ubaldo [employer] [employer] Work Phone: [facility] 12-26-2024 08:46-0400 Heart rate 82 /min Martina Ubaldo [employer] [employer] Work Phone: [facility] 12-26-2024 08:46-0400 Respiratory rate 16 /min Martina Ubaldo [employer] [employer] Work Phone: [facility] 12-26-2024 08:46-0400 SaO2% (BldA) [Mass fraction] 98 % Martina Ubaldo [employer] [employer] Work Phone: [facility] 12-26-2024 08:46-0400 Systolic blood pressure 128 mm[Hg] Martina Ubaldo [employer] [employer] Work Phone: [facility] 10-03-2024 08:29-0500 Body mass index (BMI) [Ratio] 19.8 kg/m2 Martina Ubaldo [facility] [employer] Work Phone: [facility] 10-03-2024 08:29-0500 Body weight 50.8 kg Martina Ubaldo [employer] [employer] Work Phone: [facility] 10-03-2024 08:29-0500 Diastolic blood pressure 75 mm[Hg] Martina Ubaldo [facility] [employer] Work Phone: [facility] 10-03-2024 08:29-0500 Heart rate 94 /min Martina Ubaldo [employer] [employer] Work Phone: [facility] 10-03-2024 08:29-0500 Respiratory rate 18 /min Martina Ubaldo [employer] [employer] Work Phone: [facility] 10-03-2024 08:29-0500 SaO2% (BldA) [Mass fraction] 97 % Martina Conner [employer] [employer] Work Phone: [facility] 10-03-2024 08:29-0500 Systolic blood pressure 138 mm[Hg] Martina Conner [employer] [employer] Work Phone: [facility] 07-12-2023 08:17-0400 Body height 163.19 cm Salma Hananerb LINER WORKER [facility] Work Phone: 07-12-2023 08:17-0400 Body mass index (BMI) [Ratio] 19.1 kg/m2 Salma Slarb [facility] WORK[facility]; [facility] Work Phone: 07-12-2023 08:17-0400 Body surface area Derived from formula 1.53 m2 Salma Slarb [facility] WORK[employer] [facility]; [facility] Work Phone: 07-12-2023 08:17-0400 Body temperature 97.8 [degF] Salma Slarb [facility] WORKER [facility]; [facility] Work Phone: Comment on above: Method: Temporal 07-12-2023 08:17-0400 Body weight 50.86 kg Salma Slarb [facility] WORKER [facility]; [facility] Work Phone: 07-12-2023 08:17-0400 Diastolic blood pressure 82 mm[Hg] Salma Slarb [facility] WORKER [facility]; [facility] Work Phone: Comment on above: Patient Position: Sitting; Cuff Location : Left Arm; Cuff Size: Standard 07-12-2023 08:17-0400 Heart rate 87 /min Salma Slarb [facility] WORKER [facility]; [facility] Work Phone: Comment on above: Pattern: Regular 07-12-2023 08:17-0400 Respiratory rate 14 /min Salma Slarb [facility] WORKER [facility]; [facility] Work Phone: Comment on above: Pattern: Unlabored 07-12-2023 08:17-0400 SaO2% (BldA) [Mass fraction] 99 % Salma Russell [facility] WORK[employer] [facility]; [facility] Work Phone: Comment on above: Room air 07-12-2023 08:17-0400 Systolic blood pressure 136 mm[Hg] Salma Russell [facility] WORKER [facility]; [facility] Work Phone: Comment on above: Patient Position: Sitting; Cuff Location : Left Arm; Cuff Size: Standard 06-29-2023 09:07-0400 Body height 160.02 cm [facility] [employer] Martina Ubaldo Work Phone: [facility] 06-29-2023 09:07-0400 Body mass index (BMI) [Ratio] 19.5 kg/m2 [facility] Martina Ubaldo Work Phone: [facility] 06-29-2023 09:07-0400 Body weight 49.89 kg [facility] [employer] Martina Ubaldo Work Phone: [facility] 06-29-2023 09:07-0400 Diastolic blood pressure 84 mm[Hg] [facility] [employer] Martina Ubaldo Work Phone: [facility] 06-29-2023 09:07-0400 Heart rate 80 /min [facility] [employer] Martina Ubaldo Work Phone: [facility] 06-29-2023 09:07-0400 Respiratory rate 16 /min [facility] [employer] Martina Ubaldo Work Phone: [facility] 06-29-2023 09:07-0400 Systolic blood pressure 155 mm[Hg] [facility] Martina Ubaldo Work Phone: [facility] 05-31-2023 09:02-0400 Body mass index (BMI) [Ratio] 19 kg/m2 [facility] Martina Ubaldo Work Phone: [facility] 05-31-2023 09:02-0400 Body temperature 97.3 [degF] [facility] [employer] Martina Ubaldo Work Phone: [facility] 05-31-2023 09:02-0400 Body weight 48.7 kg [facility] [employer] Martina Ubaldo Work Phone: [facility] 05-31-2023 09:02-0400 Diastolic blood pressure 58 mm[Hg] [facility] [employer] Martina Ubaldo Work Phone: [facility] 05-31-2023 09:02-0400 Heart rate 86 /min [facility] Martina Ubaldo Work Phone: [facility] 05-31-2023 09:02-0400 Respiratory rate 16 /min [facility] Martina Ubaldo Work Phone: [facility] 05-31-2023 09:02-0400 SaO2% (BldA) [Mass fraction] 99 % [facility] Martina Ubaldo Work Phone: [facility] 05-31-2023 09:02-0400 Systolic blood pressure 128 mm[Hg] [facility] [employer] Martina Ubaldo Work Phone: [facility] 05-17-2023 15:55-0400 Body temperature 98.1 [degF] [facility] [employer] Martina Ubaldo Work Phone: [facility] 05-17-2023 15:55-0400 Diastolic blood pressure 61 mm[Hg] [facility] [employer] Martina Ubaldo Work Phone: [facility] 05-17-2023 15:55-0400 Heart rate 81 /min [facility] [employer] Martina Ubaldo Work Phone: [facility] 05-17-2023 15:55-0400 Respiratory rate 18 /min [facility] [employer] Martina Ubaldo Work Phone: [facility] 05-17-2023 15:55-0400 SaO2% (BldA) [Mass fraction] 97 % [facility] Martina Ubaldo Work Phone: [facility] 05-17-2023 15:55-0400 Systolic blood pressure 134 mm[Hg] [facility] [employer] Martina Ubaldo Work Phone: [facility] 05-14-2023 07:15-0400 Body mass index (BMI) [Ratio] 20.8 kg/m2 SHILPI Conner Work Phone: [facility] 05-14-2023 07:15-0400 Body weight 53.4 kg DIAMOND GRINDERRocío Conner Work Phone: [facility] 05-13-2023 13:00-0400 Diastolic blood pressure 87 mm[Hg] [facility] 05-13-2023 13:00-0400 Heart rate 71 /min [facility] 05-13-2023 13:00-0400 Respiratory rate 15 /min [facility] 05-13-2023 13:00-0400 SaO2% (BldA) [Mass fraction] 98 % [facility] 05-13-2023 13:00-0400 Systolic blood pressure 141 mm[Hg] [facility] 05-13-2023 12:40-0400 Body temperature 98.3 [degF] [facility] 05-13-2023 09:03-0400 Body height 160.02 cm [facility] 05-13-2023 09:03-0400 Body mass index (BMI) [Ratio] 20.5 kg/m2 [facility] 05-13-2023 09:03-0400 Body weight 52.57 kg [facility] 05-09-2023 09:47-0400 Diastolic blood pressure 74 mm[Hg] [facility] 05-09-2023 09:47-0400 Heart rate 81 /min [facility] 05-09-2023 09:47-0400 Respiratory rate 20 /min [facility] 05-09-2023 09:47-0400 SaO2% (BldA) [Mass fraction] 99 % [facility] 05-09-2023 09:47-0400 Systolic blood pressure 139 mm[Hg] [facility] 05-09-2023 07:18-0400 Body mass index (BMI) [Ratio] 20.9 kg/m2 [facility] 05-09-2023 07:18-0400 Body weight 53.5 kg [facility] 05-09-2023 07:08-0400 Body temperature 97.3 [degF] [facility] 05-02-2023 09:24-0400 Body height 160.02 cm [facility] 01-04-2023 11:04-0400 Body height 163.19 cm Salma Slarb LINER WORKER [facility]; [facility] Work Phone: 01-04-2023 11:04-0400 Body mass index (BMI) [Ratio] 20.44 kg/m2 Salma Slarb LINER WORKER [facility]; [facility] Work Phone: 01-04-2023 11:04-0400 Body surface area Derived from formula 1.58 m2 Salma Slarb LINER WORKER [facility]; [facility] Work Phone: 01-04-2023 11:04-0400 Body temperature 97.4 [degF] Salma Slarb LINER WORKER [facility]; [facility] Work Phone: Comment on above: Method: Temporal 01-04-2023 11:04-0400 Body weight 54.43 kg Salma Slarb LINER WORKER [facility]; [facility] Work Phone: 01-04-2023 11:04-0400 Diastolic blood pressure 82 mm[Hg] Salma Slarb LINER WORKER [facility]; [facility] Work Phone: Comment on above: Patient Position: Sitting; Cuff Location : Left Arm; Cuff Size: Standard 01-04-2023 11:04-0400 Heart rate 83 /min Salma Slarb [facility] WORKER [facility]; [facility] Work Phone: Comment on above: Pattern: Regular 01-04-2023 11:04-0400 Respiratory rate 15 /min Salma Slarb [facility] WORKER [facility]; [facility] Work Phone: Comment on above: Pattern: Unlabored 01-04-2023 11:04-0400 SaO2% (BldA) [Mass fraction] 99 % Salma Slarb [facility]ER WORKER [facility]; [facility] Work Phone: Comment on above: Room air 01-04-2023 11:04-0400 Systolic blood pressure 142 mm[Hg] Salma Slarb LINER WORKER [facility]; [facility] Work Phone: Comment on above: Patient Position: Sitting; Cuff Location : Left Arm; Cuff Size: Standard 09-05-2022 08:50-0500 Body height 163.19 cm Yessenia Saleh MA [facility]; [facility] Work Phone: 09-05-2022 08:50-0500 Body mass index (BMI) [Ratio] 19.76 kg/m2 Yessenia Saleh MA [facility]; [facility] Work Phone: 09-05-2022 08:50-0500 Body surface area Derived from formula 1.56 m2 Yessenia Saleh MA [facility]; [facility] Work Phone: 09-05-2022 08:50-0500 Body temperature 97 [degF] Yessenia Saleh MA [facility]; [facility] Work Phone: 09-05-2022 08:50-0500 Body weight 52.62 kg Yessenia Saleh MA [facility]; [facility] Work Phone: 09-05-2022 08:50-0500 Diastolic blood pressure 80 mm[Hg] Yessenia Saleh MA [facility]; [facility] Work Phone: Comment on above: Patient Position: Sitting; Cuff Location : Left Arm; Cuff Size: Standard 09-05-2022 08:50-0500 Heart rate 90 /min Yessenia Saleh MA [facility]; [facility] Work Phone: Comment on above: Pattern: Regular 09-05-2022 08:50-0500 Respiratory rate 17 /min Yessenia Saleh MA [facility]; [facility] Work Phone: Comment on above: Pattern: Unlabored 09-05-2022 08:50-0500 SaO2% (BldA) [Mass fraction] 99 % Yessenia Saleh MA [facility]; [facility] Work Phone: Comment on above: Room air 09-05-2022 08:50-0500 Systolic blood pressure 142 mm[Hg] Yessenia Saleh MA [facility]; [facility] Work Phone: Comment on above: Patient Position: Sitting; Cuff Location : Left Arm; Cuff Size: Standard 06-01-2022 14:59-0400 Body height 160.02 cm [facility] [employer] Kristie Meridaa [employer] Work Phone: [facility] Work Phone: 06-01-2022 14:59-0400 Body mass index (BMI) [Ratio] 20.5 kg/m2 [employer] Kristie Myersesa [employer] Work Phone: [facility] Work Phone: 06-01-2022 14:59-0400 Body weight 52.61 kg [employer] Kristie Meridaa [employer] Work Phone: [facility] Work Phone: 06-01-2022 14:59-0400 Diastolic blood pressure 63 mm[Hg] [facility] [employer] Kristie Myersesa [employer] Work Phone: [facility] Work Phone: 06-01-2022 14:59-0400 Heart rate 99 /min [employer] Kristie Meridaa [employer] Work Phone: [facility] Work Phone: 06-01-2022 14:59-0400 Respiratory rate 16 /min [employer] [employer] Kristie Meridaa [employer] Work Phone: [facility] Work Phone: 06-01-2022 14:59-0400 Systolic blood pressure 117 mm[Hg] [employer] [employer] Kristie Meridaa [employer] Work Phone: [facility] Work Phone: 05-02-2022 09:25-0400 Body height 163.19 cm Salma Russell LPN [facility]; [facility] Work Phone: 05-02-2022 09:25-0400 Body mass index (BMI) [Ratio] 19.76 kg/m2 Salma Russell LPN [facility]; [facility] Work Phone: 05-02-2022 09:25-0400 Body surface area Derived from formula 1.56 m2 Salma Koorb LINER WORKER [facility]; [facility] Work Phone: 05-02-2022 09:25-0400 Body temperature 96.9 [degF] Salma Koorb LINER WORKER [facility]; [facility] Work Phone: 05-02-2022 09:25-0400 Body weight 52.62 kg Salma Koorb LINER WORKER [facility]; [facility] Work Phone: 05-02-2022 09:25-0400 Diastolic blood pressure 82 mm[Hg] Salma Slarb LINER WORKER [facility]; [facility] Work Phone: Comment on above: Patient Position: Sitting; Cuff Location : Left Arm; Cuff Size: Standard 05-02-2022 09:25-0400 Heart rate 68 /min Salma Koorb LINER WORKER [facility]; [facility] Work Phone: Comment on above: Pattern: Regular 05-02-2022 09:25-0400 Respiratory rate 16 /min Salma Hananerb LINER WORKER [facility]; [facility] Work Phone: Comment on above: Pattern: Unlabored 05-02-2022 09:25-0400 SaO2% (BldA) [Mass fraction] 99 % Salma Hananerb LINER WORKER [facility]; [facility] Work Phone: Comment on above: Room air 05-02-2022 09:25-0400 Systolic blood pressure 138 mm[Hg] Salma Koorb LINER WORKER [facility]; [facility] Work Phone: Comment on above: Patient Position: Sitting; Cuff Location : Left Arm; Cuff Size: Standard 03-02-2022 10:47-0400 Body height 160.02 cm [employer] Kristie Meadows [employer] Work Phone: [facility] Work Phone: 03-02-2022 10:47-0400 Body mass index (BMI) [Ratio] 21.2 kg/m2 [employer] Kristie Meadows [employer] Work Phone: [facility] Work Phone: 03-02-2022 10:47-0400 Body weight 54.43 kg [employer] Kristie Meridaa [employer] Work Phone: [facility] Work Phone: 03-02-2022 10:47-0400 Diastolic blood pressure 87 mm[Hg] [employer] [employer] Kristie Meridaa [employer] Work Phone: [facility] Work Phone: 03-02-2022 10:47-0400 Heart rate 72 /min [employer] [employer] Kristie Meridaa [employer] Work Phone: [facility] Work Phone: 03-02-2022 10:47-0400 Respiratory rate 16 /min [employer] [employer] Kristie Meridaa [employer] Work Phone: [facility] Work Phone: 03-02-2022 10:47-0400 SaO2% (BldA) [Mass fraction] 98 % [employer] [employer] Kristie Meadows [employer] Work Phone: [facility] Work Phone: 03-02-2022 10:47-0400 Systolic blood pressure 183 mm[Hg] [employer] [employer] Kristie Meadows [employer] Work Phone: [facility] Work Phone: 03-02-2022 10:47-0400 Body height 160.02 cm [employer] Kristie Meadows [employer] Work Phone: [facility] Work Phone: 03-02-2022 10:47-0400 Body mass index (BMI) [Ratio] 21.2 kg/m2 [employer] Kristie Meridaa [employer] Work Phone: [facility] Work Phone: 03-02-2022 10:47-0400 Body weight 54.43 kg [employer] Kritsie Meridaa [employer] Work Phone: [facility] Work Phone: 03-02-2022 10:47-0400 Diastolic blood pressure 87 mm[Hg] [employer] Kristie Meridaa [employer] Work Phone: [facility] Work Phone: 03-02-2022 10:47-0400 Heart rate 72 /min [employer] Kristie Meridaa [employer] Work Phone: [facility] Work Phone: 03-02-2022 10:47-0400 Respiratory rate 16 /min [employer] Kristie Meridaa [employer] Work Phone: [facility] Work Phone: 03-02-2022 10:47-0400 SaO2% (BldA) [Mass fraction] 98 % [employer] [employer] Kristie Meridaa [employer] Work Phone: [facility] Work Phone: 03-02-2022 10:47-0400 Systolic blood pressure 183 mm[Hg] [employer] Kristie Meridaa [employer] Work Phone: [facility] Work Phone: 01-21-2022 09:06-0400 Body height 163.19 cm John Corbett LPN [facility]; [facility] Work Phone: 01-21-2022 09:06-0400 Body mass index (BMI) [Ratio] 20.57 kg/m2 John Corbett LPN [facility]; [facility] Work Phone: 01-21-2022 09:06-0400 Body surface area Derived from formula 1.58 m2 John Corbett LPN [facility]; [facility] Work Phone: 01-21-2022 09:06-0400 Body temperature 97.8 [degF] John Corbett LPN [facility]; [facility] Work Phone: Comment on above: Method: Infrared 01-21-2022 09:06-0400 Body weight 54.79 kg John Corbett LPN [facility]; [facility] Work Phone: 01-21-2022 09:06-0400 Diastolic blood pressure 78 mm[Hg] John Corbett LPN [facility]; [facility] Work Phone: Comment on above: Patient Position: Sitting; Cuff Location : Left Arm; Cuff Size: Standard 01-21-2022 09:06-0400 Heart rate 80 /min John Corbett LPN [facility]; [facility] Work Phone: Comment on above: Pattern: Regular 01-21-2022 09:06-0400 Respiratory rate 16 /min John Corbett LPN [facility]; [facility] Work Phone: Comment on above: Pattern: Unlabored 01-21-2022 09:06-0400 SaO2% (BldA) [Mass fraction] 97 % John Corbett LPN [facility]; [facility] Work Phone: Comment on above: Room air 01-21-2022 09:06-0400 Systolic blood pressure 140 mm[Hg] John Corbett LPN [facility]; [facility] Work Phone: Comment on above: Patient Position: Sitting; Cuff Location : Left Arm; Cuff Size: Standard 01-14-2022 09:53-0400 Body height 163.19 cm John Corbett LPN [facility]; [facility] Work Phone: 01-14-2022 09:53-0400 Body mass index (BMI) [Ratio] 20.57 kg/m2 John Corbett LPN [facility]; [facility] Work Phone: 01-14-2022 09:53-0400 Body surface area Derived from formula 1.58 m2 John Corbett LPN [facility]; [facility] Work Phone: 01-14-2022 09:53-0400 Body temperature 97.8 [degF] John Corbett LPN [facility]; [facility] Work Phone: Comment on above: Method: Infrared 01-14-2022 09:53-0400 Body weight 54.79 kg John Corbett LPN [facility]; [facility] Work Phone: 01-14-2022 09:53-0400 Diastolic blood pressure 80 mm[Hg] John Corbett LPN [facility]; [facility] Work Phone: Comment on above: Patient Position: Sitting; Cuff Location : Left Arm; Cuff Size: Standard 01-14-2022 09:53-0400 Heart rate 79 /min John Corbett LPN [facility]; [facility] Work Phone: Comment on above: Pattern: Regular 01-14-2022 09:53-0400 Respiratory rate 16 /min John Corbett LPN [facility]; [facility] Work Phone: Comment on above: Pattern: Unlabored 01-14-2022 09:53-0400 SaO2% (BldA) [Mass fraction] 92 % John Corbett LPN [facility]; [facility] Work Phone: Comment on above: Room air 01-14-2022 09:53-0400 Systolic blood pressure 160 mm[Hg] John Corbett LPN [facility]; [facility] Work Phone: Comment on above: Patient Position: Sitting; Cuff Location : Left Arm; Cuff Size: Standard 01-07-2022 07:19-0400 Body height 163.19 cm John Corbett LPN [facility]; [facility] Work Phone: 01-07-2022 07:19-0400 Body mass index (BMI) [Ratio] 20.57 kg/m2 John Corbett LPN [facility]; [facility] Work Phone: 01-07-2022 07:19-0400 Body surface area Derived from formula 1.58 m2 John Corbett LPN [facility]; [facility] Work Phone: 01-07-2022 07:19-0400 Body temperature 96.9 [degF] John Corbett LPN [facility]; [facility] Work Phone: Comment on above: Method: Infrared 01-07-2022 07:19-0400 Body weight 54.79 kg John Corbett LPN [facility]; [facility] Work Phone: 03-25-2022 07:19-0400 Diastolic blood pressure 82 mm[Hg] John Corbett LPN [facility]; [facility] Work Phone: Comment on above: Patient Position: Sitting; Cuff Location : Left Arm; Cuff Size: Standard 01-07-2022 07:19-0400 Heart rate 117 /min John Corbett LPN [facility]; [facility] Work Phone: Comment on above: Pattern: Regular 01-07-2022 07:19-0400 Respiratory rate 16 /min John Corbett LPN [facility]; [facility] Work Phone: Comment on above: Pattern: Unlabored 01-07-2022 07:19-0400 SaO2% (BldA) [Mass fraction] 98 % John Corbett LPN [facility]; [facility] Work Phone: Comment on above: Room air 01-07-2022 07:19-0400 Systolic blood pressure 142 mm[Hg] John Corbett LPN [facility]; [facility] Work Phone: Comment on above: Patient Position: Sitting; Cuff Location : Left Arm; Cuff Size: Standard 12-15-2021 10:08-0500 Body height 163.19 cm John Corbett LPN [facility]; [facility] Work Phone: 12-15-2021 10:08-0500 Body mass index (BMI) [Ratio] 20.57 kg/m2 John Corbett LPN [facility]; [facility] Work Phone: 12-15-2021 10:08-0500 Body surface area Derived from formula 1.58 m2 John Corbett LPN [facility]; [facility] Work Phone: 12-15-2021 10:08-0500 Body temperature 97.6 [degF] John Corbett LPN [facility]; [facility] Work Phone: Comment on above: Method: Infrared 12-15-2021 10:08-0500 Body weight 54.79 kg John Corbett LPN [facility]; [facility] Work Phone: 12-15-2021 10:08-0500 Diastolic blood pressure 80 mm[Hg] John Corbett LPN [facility]; [facility] Work Phone: Comment on above: Patient Position: Sitting; Cuff Location : Left Arm; Cuff Size: Standard 12-15-2021 10:08-0500 Heart rate 110 /min John Corbett LPN [facility]; [facility] Work Phone: Comment on above: Pattern: Regular 12-15-2021 10:08-0500 Respiratory rate 16 /min John Corbett LPN [facility]; [facility] Work Phone: Comment on above: Pattern: Unlabored 12-15-2021 10:08-0500 SaO2% (BldA) [Mass fraction] 98 % John Corbett LPN [facility]; [facility] Work Phone: Comment on above: Room air 12-15-2021 10:08-0500 Systolic blood pressure 124 mm[Hg] John Corbett LPN [facility]; [facility] Work Phone: Comment on above: Patient Position: Sitting; Cuff Location : Left Arm; Cuff Size: Standard 08-25-2021 09:36-0500 Body height 163.19 cm John Corbett LPN [facility]; [facility] Work Phone: 08-25-2021 09:36-0500 Body mass index (BMI) [Ratio] 20.13 kg/m2 John Corbett LPN [facility]; [facility] Work Phone: 08-25-2021 09:36-0500 Body surface area Derived from formula 1.57 m2 John Corbett LPN [facility]; [facility] Work Phone: 08-25-2021 09:36-0500 Body temperature 97.8 [degF] John Corbett LPN [facility]; [facility] Work Phone: Comment on above: Method: Infrared 08-25-2021 09:36-0500 Body weight 53.62 kg John Corbett LPN [facility]; [facility] Work Phone: 08-25-2021 09:36-0500 Diastolic blood pressure 82 mm[Hg] John Corbett LPN [facility]; [facility] Work Phone: Comment on above: Patient Position: Sitting; Cuff Location : Left Arm; Cuff Size: Standard 08-25-2021 09:36-0500 Heart rate 89 /min John Corbett LPN [facility]; [facility] Work Phone: Comment on above: Pattern: Regular 08-25-2021 09:36-0500 Respiratory rate 16 /min John Corbett LPN [facility]; [facility] Work Phone: Comment on above: Pattern: Unlabored 08-25-2021 09:36-0500 SaO2% (BldA) [Mass fraction] 99 % John Corbett LPN [facility]; [facility] Work Phone: Comment on above: Room air 08-25-2021 09:36-0500 Systolic blood pressure 142 mm[Hg] John Corbett LPN [facility]; [facility] Work Phone: Comment on above: Patient Position: Sitting; Cuff Location : Left Arm; Cuff Size: Standard 04-23-2021 07:33-0400 Body height 163.19 cm John Corbett LPN [facility]; [facility] Work Phone: 04-23-2021 07:33-0400 Body mass index (BMI) [Ratio] 19.94 kg/m2 John Corbett LPN [facility]; [facility] Work Phone: 04-23-2021 07:33-0400 Body surface area Derived from formula 1.56 m2 John Corbett LPN [facility]; [facility] Work Phone: 04-23-2021 07:33-0400 Body temperature 97.1 [degF] John Corbett LPN [facility]; [facility] Work Phone: Comment on above: Method: Infrared 04-23-2021 07:33-0400 Body weight 53.09 kg John Corbett LPN [facility]; [facility] Work Phone: 04-23-2021 07:33-0400 Diastolic blood pressure 78 mm[Hg] John Corbett LPN [facility]; [facility] Work Phone: Comment on above: Patient Position: Sitting; Cuff Location : Left Arm; Cuff Size: Standard 04-23-2021 07:33-0400 Heart rate 89 /min John Corbett LPN [facility]; [facility] Work Phone: Comment on above: Pattern: Regular 04-23-2021 07:33-0400 Respiratory rate 16 /min John Corbett LPN [facility]; [facility] Work Phone: Comment on above: Pattern: Unlabored 04-23-2021 07:33-0400 SaO2% (BldA) [Mass fraction] 98 % John Corbett LPN [facility]; [facility] Work Phone: Comment on above: Room air 04-23-2021 07:33-0400 Systolic blood pressure 136 mm[Hg] John Corbett LPN [facility]; [facility] Work Phone: Comment on above: Patient Position: Sitting; Cuff Location : Left Arm; Cuff Size: Standard 03-17-2021 14:22-040 Body height 163.19 cm John Corbett LPN [facility]; [facility] Work Phone: 03-17-2021 14:22-0400 Body mass index (BMI) [Ratio] 20.78 kg/m2 John Corbett LPN [facility]; [facility] Work Phone: 03-17-2021 14:22-0400 Body surface area Derived from formula 1.59 m2 John Corbett LPN [facility]; [facility] Work Phone: 03-17-2021 14:22-0400 Body temperature 97.4 [degF] John Corbett LPN [facility]; [facility] Work Phone: Comment on above: Method: Infrared 03-17-2021 14:040 Body weight 55.34 kg John Corbett LPN [facility]; [facility] Work Phone: 03-17-2021 14:22-0400 Diastolic blood pressure 78 mm[Hg] John Corbett LPN [facility]; [facility] Work Phone: Comment on above: Patient Position: Sitting; Cuff Location : Left Arm; Cuff Size: Standard 03-17-2021 14:22-0400 Heart rate 97 /min John Corbett LPN [facility]; [facility] Work Phone: Comment on above: Pattern: Regular 03-17-2021 14:22-0400 Respiratory rate 16 /min John Corbett LPN [facility]; [facility] Work Phone: Comment on above: Pattern: Unlabored 03-17-2021 14:22-0400 SaO2% (BldA) [Mass fraction] 97 % John Corbett LPN [facility]; [facility] Work Phone: Comment on above: Room air 03-17-2021 14:22-0400 Systolic blood pressure 128 mm[Hg] John Corbett LPN [facility]; [facility] Work Phone: Comment on above: Patient Position: Sitting; Cuff Location : Left Arm; Cuff Size: Standard 12-21-2020 08:19-0500 BMI (Body Mass Index) 20.78 kg/m2 John Corbett LPN [facility]; [facility] Work Phone: 12-21-2020 08:19-0500 Body Temperature 97.1 [degF] John Corbett LPN [facility]; [facility] Work Phone: Comment on above: Method: Infrared 12-21-2020 08:19-0500 Body weight 55.34 kg John Corbett LPN [facility]; [facility] Work Phone: 12-21-2020 08:19-0500 BP Diastolic 86 mm[Hg] John Corbett LPN [facility]; [facility] Work Phone: Comment on above: Patient Position: Sitting; Cuff Location : Left Arm; Cuff Size: Standard 12-21-2020 08:19-0500 BP Systolic 138 mm[Hg] John Corbett LPN [facility]; [facility] Work Phone: Comment on above: Patient Position: Sitting; Cuff Location : Left Arm; Cuff Size: Standard 12-21-2020 08:19-0500 BSA (Body Surface Area) 1.59 m2 John Corbett LPN [facility]; [facility] Work Phone: 12-21-2020 08:19-0500 Height 163.19 cm John Corbett LPN [facility]; [facility] Work Phone: 12-21-2020 08:19-0500 Pulse (Heart Rate) 86 /min John Corbett LPN [facility]; [facility] Work Phone: Comment on above: Pattern: Regular 12-21-2020 08:19-0500 Pulse Oximetry 93 % Kristie Meadows [facility]; [facility] Work Phone: Comment on above: Room air 12-21-2020 08:19-0500 Respiratory Rate 16 /min John Corbett LPN [facility]; [facility] Work Phone: Comment on above: Pattern: Unlabored 12-21-2020 08:19-0500 SaO2% (BldA) [Mass fraction] 93 % John Corbett LPN [facility]; [facility] Work Phone: Comment on above: Room air 08-19-2020 08:20-0500 BMI (Body Mass Index) 20.1 kg/m2 John Corbett LPN [facility] Work Phone: 08-19-2020 08:20-0500 Body Temperature 97.6 [degF] John Corbett LPN [facility] Work Phone: Comment on above: Method: Infrared 08-19-2020 08:20-0500 Body weight 53.52 kg John Corbett LPN [facility] Work Phone: 08-19-2020 08:20-0500 BP Diastolic 80 mm[Hg] John Corbett LPN [facility] Work Phone: Comment on above: Patient Position: Sitting; Cuff Location : Left Arm; Cuff Size: Standard 08-19-2020 08:20-0500 BP Systolic 112 mm[Hg] John Corbett LPN [facility] Work Phone: Comment on above: Patient Position: Sitting; Cuff Location : Left Arm; Cuff Size: Standard 08-19-2020 08:20-0500 BSA (Body Surface Area) 1.57 m2 John Corbett LPN [facility] Work Phone: 08-19-2020 08:20-0500 Height 163.19 cm John Corbett LPN [facility] Work Phone: 08-19-2020 08:20-0500 Pulse (Heart Rate) 98 /min John Corbett LPN [facility] Work Phone: Comment on above: Pattern: Regular 08-19-2020 08:20-0500 Pulse Oximetry 97 % Kristie Meadows [facility] Work Phone: Comment on above: Room air 08-19-2020 08:20-0500 Respiratory Rate 16 /min John Corbett LPN [facility] Work Phone: Comment on above: Pattern: Unlabored 08-19-2020 08:20-0500 SaO2% (BldA) [Mass fraction] 97 % John Corbett LPN [facility]; [facility] Work Phone: Comment on above: Room air 04-07-2020 08:45-0400 BMI (Body Mass Index) 20.27 kg/m2 John Corbett LPN [facility] Work Phone: 04-07-2020 08:45-0400 Body Temperature 97.5 [degF] John Corbett LPN [facility] Work Phone: Comment on above: Method: Temporal 04-07-2020 08:45-0400 Body weight 53.99 kg John Corbett LPN [facility] Work Phone: 04-07-2020 08:45-0400 BP Diastolic 82 mm[Hg] John Corbett LPN [facility] Work Phone: Comment on above: Patient Position: Sitting; Cuff Location : Left Arm; Cuff Size: Standard 04-07-2020 08:45-0400 BP Systolic 150 mm[Hg] John Corbett LPN [facility] Work Phone: Comment on above: Patient Position: Sitting; Cuff Location : Left Arm; Cuff Size: Standard 04-07-2020 08:45-0400 BSA (Body Surface Area) 1.57 m2 John Corbett LPN [facility] Work Phone: 04-07-2020 08:45-0400 Height 163.19 cm John Corbett LPN [facility] Work Phone: 04-07-2020 08:45-0400 Pulse (Heart Rate) 92 /min John Corbett LPN [facility] Work Phone: Comment on above: Pattern: Regular 04-07-2020 08:45-0400 Pulse Oximetry 99 % Kristie Meadows [facility] Work Phone: Comment on above: Room air 04-07-2020 08:45-0400 Respiratory Rate 17 /min John Corbett LPN [facility] Work Phone: Comment on above: Pattern: Unlabored 04-07-2020 08:45-0400 SaO2% (BldA) [Mass fraction] 99 % John Corbett LPN [facility]; [facility] Work Phone: Comment on above: Room air 07-09-2019 12:52-0400 BMI (Body Mass Index) 20.27 kg/m2 John Corbett LPN [facility] Work Phone: 07-09-2019 12:52-0400 Body Temperature 97.8 [degF] John Corbett LPN [facility] Work Phone: Comment on above: Method: Temporal 07-09-2019 12:52-0400 Body weight 54 kg John Corbett LPN [facility] Work Phone: 07-09-2019 12:52-0400 BP Diastolic 60 mm[Hg] John Corbett LPN [facility] Work Phone: Comment on above: Patient Position: Sitting; Cuff Location : Left Arm; Cuff Size: Standard 07-09-2019 12:52-0400 BP Systolic 102 mm[Hg] John Corbett LPN [facility] Work Phone: Comment on above: Patient Position: Sitting; Cuff Location : Left Arm; Cuff Size: Standard 07-09-2019 12:52-0400 BSA (Body Surface Area) 1.57 m2 John Corbett LPN [facility] Work Phone: 07-09-2019 12:52-0400 Height 163.19 cm John Corbett LPN [facility] Work Phone: 07-09-2019 12:52-0400 Pulse (Heart Rate) 91 /min John Corbett LPN [facility] Work Phone: Comment on above: Pattern: Regular 07-09-2019 12:52-0400 Pulse Oximetry 98 % Kristie Meadows [facility] Work Phone: Comment on above: Room air 07-09-2019 12:52-0400 Respiratory Rate 16 /min John Corbett LPN [facility] Work Phone: Comment on above: Pattern: Unlabored 07-09-2019 12:52-0400 SaO2% (BldA) [Mass fraction] 98 % John Corbett LPN [facility]; [facility] Work Phone: Comment on above: Room air 04-09-2019 09:35-0400 BMI (Body Mass Index) 20.48 kg/m2 Keyla [employer] [facility] Work Phone: 04-09-2019 09:35-0400 Body Temperature 96.9 [degF] Keyla [employer] [facility] Work Phone: Comment on above: Method: Temporal 04-09-2019 09:35-0400 Body weight 54.55 kg [employer] [place] [facility] Work Phone: 04-09-2019 09:35-0400 BP Diastolic 84 mm[Hg] [employer] [place] [facility] Work Phone: Comment on above: Patient Position: Sitting; Cuff Location : Left Arm; Cuff Size: Standard 04-09-2019 09:35-0400 BP Systolic 122 mm[Hg] [employer] [place] [facility] Work Phone: Comment on above: Patient Position: Sitting; Cuff Location : Left Arm; Cuff Size: Standard 04-09-2019 09:35-0400 BSA (Body Surface Area) 1.58 m2 Keyla [employer] [facility] Work Phone: 04-09-2019 09:35-0400 Height 163.19 cm Keyla Lion [facility] Work Phone: 04-09-2019 09:35-0400 Pulse (Heart Rate) 60 /min Keyla Lion [facility] Work Phone: Comment on above: Pattern: Regular 04-09-2019 09:35-0400 Pulse Oximetry 98 % Kristie Meadows [facility] Work Phone: Comment on above: Room air 04-09-2019 09:35-0400 Respiratory Rate 18 /min Keyla Lion [facility] Work Phone: Comment on above: Pattern: Unlabored 04-09-2019 09:35-0400 SaO2% (BldA) [Mass fraction] 98 % Keyla Lion [facility]; [facility] Work Phone: Comment on above: Room air 04-09-2019 09:35-0400 Weight 54.55 kg Kristie Meadows [facility] Work Phone: 02-27-2019 08:10-0400 BMI (Body Mass Index) 20.48 kg/m2 [facility] Work [facility]: 02-27-2019 08:10-0400 Body Temperature 97.8 [degF] John Corbett LPN [facility] Work Phone: Comment on above: Method: Temporal 02-27-2019 08:10-0400 Body weight 54.55 kg John Corbett LPN [facility] Work Phone: 02-27-2019 08:10-0400 BP Diastolic 68 mm[Hg] John Corbett LPN [facility] Work Phone: Comment on above: Patient Position: Sitting; Cuff Location : Left Arm; Cuff Size: Standard 02-27-2019 08:10-0400 BP Systolic 128 mm[Hg] John Corbett LPN [facility] Work Phone: Comment on above: Patient Position: Sitting; Cuff Location : Left Arm; Cuff Size: Standard 02-27-2019 08:10-0400 BSA (Body Surface Area) 1.58 m2 John Corbett LPN [facility] Work Phone: 02-27-2019 08:10-0400 Height 163.19 cm John Corbett [employer] [facility] Work Phone: 02-27-2019 08:10-0400 Pulse (Heart Rate) 92 /min John Corbett LPN [facility] Work Phone: Comment on above: Pattern: Regular 02-27-2019 08:10-0400 Pulse Oximetry 98 % Kristie Meadows [facility] Work Phone: Comment on above: Room air 02-27-2019 08:10-0400 Respiratory Rate 16 /min John Corbett [employer] [facility] Work Phone: Comment on above: Pattern: Unlabored 02-27-2019 08:10-0400 SaO2% (BldA) [Mass fraction] 98 % John Corbett [employer] [facility]; [facility] Work Phone: Comment on above: Room air 02-27-2019 08:10-0400 Weight 54.55 kg Kristie Meadows [facility] Work Phone: 10-24-2018 08:18-0500 BMI (Body Mass Index) 20.48 kg/m2 Lynda [facility] Work Phone: 10-24-2018 08:18-0500 Body Temperature 97.4 [degF] Lynda Garcialear [facility] Work Phone: Comment on above: Method: Temporal 10-24-2018 08:18-0500 Body weight 54.55 kg Lynda Garcialear [facility] Work Phone: 10-24-2018 08:18-0500 BP Diastolic 82 mm[Hg] Lynda Monteiro [facility] Work Phone: Comment on above: Patient Position: Sitting; Cuff Location : Left Arm; Cuff Size: Standard 10-24-2018 08:18-0500 BP Systolic 132 mm[Hg] Lynda Monteiro [facility] Work Phone: Comment on above: Patient Position: Sitting; Cuff Location : Left Arm; Cuff Size: Standard 10-24-2018 08:18-0500 BSA (Body Surface Area) 1.58 m2 Lynda Monteiro [facility] Work Phone: 10-24-2018 08:18-0500 Height 163.19 cm Lynda Monteiro [facility] Work Phone: 10-24-2018 08:18-0500 Pulse (Heart Rate) 90 /min Lynda Monteiro [facility] Work Phone: Comment on above: Pattern: Regular 10-24-2018 08:18-0500 Pulse Oximetry 100 % Kristie Meadows [facility] Work Phone: Comment on above: Room air 10-24-2018 08:18-0500 Respiratory Rate 16 /min Lynda Monteiro [facility] Work Phone: Comment on above: Pattern: Unlabored 10-24-2018 08:18-0500 SaO2% (BldA) [Mass fraction] 100 % Lynda Monteiro [facility]; [facility] Work Phone: Comment on above: Room air 10-24-2018 08:18-0500 Weight 54.55 kg Kristie Meadows [facility] Work Phone: 10-15-2018 09:26-0500 BMI (Body Mass Index) 20.48 kg/m2 Lynda Monteiro [facility] Work Phone: 10-15-2018 09:26-0500 Body Temperature 98.3 [degF] Lynda Monteiro [facility] Work Phone: Comment on above: Method: Temporal 10-15-2018 09:26-0500 Body weight 54.55 kg Lynda Monteiro [facility] Work Phone: 10-15-2018 09:26-0500 BP Diastolic 72 mm[Hg] Lynda Monteiro [facility] Work Phone: Comment on above: Patient Position: Sitting; Cuff Location : Left Arm; Cuff Size: Standard 10-15-2018 09:26-0500 BP Systolic 122 mm[Hg] Lynda Monteiro [facility] Work Phone: Comment on above: Patient Position: Sitting; Cuff Location : Left Arm; Cuff Size: Standard 10-15-2018 09:26-0500 BSA (Body Surface Area) 1.58 m2 Lynda Monteiro [facility] Work Phone: 10-15-2018 09:26-0500 Height 163.19 cm [facility] Internal Medicine Work Phone: 10-15-2018 09:26-0500 Pulse (Heart Rate) 90 /min Lynda Monteiro [facility] Internal Medicine Work Phone: Comment on above: Pattern: Regular 10-15-2018 09:26-0500 Pulse Oximetry 98 % Kristie Meadows [facility] Internal Medicine Work Phone: Comment on above: Room air 10-15-2018 09:26-0500 Respiratory Rate 16 /min Lynda Monteiro [facility] Internal Medicine Work Phone: Comment on above: Pattern: Unlabored 10-15-2018 09:26-0500 SaO2% (BldA) [Mass fraction] 98 % Lynda Monteiro [facility] Internal Medicine; [facility] Internal Medicine Work Phone: Comment on above: Room air 10-15-2018 09:26-0500 Weight 54.55 kg Kristie Meadows [facility] Internal Medicine Work Phone: 10-03-2018 10:02-0500 BMI (Body Mass Index) 20.44 kg/m2 Lynda Monteiro [facility] Internal Medicine Work Phone: 10-03-2018 10:02-0500 Body Temperature 97.9 [degF] Lynda Monteiro [facility] Internal Medicine Work Phone: Comment on above: Method: Temporal 10-03-2018 10:02-0500 Body weight 54.43 kg Lynda Monteiro [facility] Internal Medicine Work Phone: 10-03-2018 10:02-0500 BP Diastolic 70 mm[Hg] Lynda Monteiro [facility] Internal Medicine Work Phone: Comment on above: Patient Position: Sitting; Cuff Location : Left Arm; Cuff Size: Standard 10-03-2018 10:02-0500 BP Systolic 126 mm[Hg] Lynda Monteiro [facility] Internal Medicine Work Phone: Comment on above: Patient Position: Sitting; Cuff Location : Left Arm; Cuff Size: Standard 10-03-2018 10:02-0500 BSA (Body Surface Area) 1.58 m2 Lynda Monteiro [facility] Internal Medicine Work Phone: 10-03-2018 10:02-0500 Height 163.19 cm Lynda Monteiro [facility] Internal Medicine Work Phone: 10-03-2018 10:02-0500 Pulse (Heart Rate) 81 /min Lynda Monteiro [facility] Internal Medicine Work Phone: Comment on above: Pattern: Regular 10-03-2018 10:02-0500 Pulse Oximetry 98 % Kristie Meadows [facility] Internal Medicine Work Phone: Comment on above: Room air 10-03-2018 10:02-0500 Respiratory Rate 17 /min Lynda Monteiro [facility] Internal Medicine Work Phone: Comment on above: Pattern: Unlabored 10-03-2018 10:02-0500 SaO2% (BldA) [Mass fraction] 98 % Lynda Monteiro [facility] Internal Medicine; [facility] Internal Medicine Work Phone: Comment on above: Room air 10-03-2018 10:02-0500 Weight 54.43 kg Kristie Meadows [facility] Internal Medicine Work Phone: 07-24-2018 08:57-0400 BMI (Body Mass Index) 20.18 kg/m2 Lynda Monteiro [facility] Internal Medicine Work Phone: 07-24-2018 08:57-0400 Body Temperature 98 [degF] Lynda Monteiro [facility] Internal Medicine Work Phone: Comment on above: Method: Temporal 07-24-2018 08:57-0400 Body weight 53.75 kg Lynda Monteiro [facility] Internal Medicine Work Phone: 07-24-2018 08:57-0400 BP Diastolic 80 mm[Hg] Lynda Monteiro [facility] Internal Medicine Work Phone: Comment on above: Patient Position: Sitting; Cuff Location : Left Arm; Cuff Size: Standard 07-24-2018 08:57-0400 BP Systolic 132 mm[Hg] Lynda Monteiro [facility] Internal Medicine Work Phone: Comment on above: Patient Position: Sitting; Cuff Location : Left Arm; Cuff Size: Standard 07-24-2018 08:57-0400 BSA (Body Surface Area) 1.57 m2 Lynda Monteiro [facility] Internal Medicine Work Phone: 07-24-2018 08:57-0400 Height 163.19 cm Lynda Monteiro [facility] Internal Medicine Work Phone: 07-24-2018 08:57-0400 Pulse (Heart Rate) 105 /min Lynda Monteiro [facility] Internal Medicine Work Phone: Comment on above: Pattern: Regular 07-24-2018 08:57-0400 Pulse Oximetry 95 % Kristie Meadows [facility] Internal Medicine Work Phone: Comment on above: Room air 07-24-2018 08:57-0400 Respiratory Rate 17 /min Lynda Monteiro [facility] Internal Medicine Work Phone: Comment on above: Pattern: Unlabored 07-24-2018 08:57-0400 SaO2% (BldA) [Mass fraction] 95 % Lynda Monteiro [facility] Internal Medicine; [facility] Internal Medicine Work Phone: Comment on above: Room air 07-24-2018 08:57-0400 Weight 53.75 kg Kristie Meadows [facility] Internal Medicine Work Phone: 04-20-2018 08:25-0400 BMI (Body Mass Index) 20.45 kg/m2 John Corbett LPN [facility] Internal Medicine Work Phone: 04-20-2018 08:25-0400 Body Temperature 97.3 [degF] John Corbett LPN [facility] Internal Medicine Work Phone: Comment on above: Method: Tympanic 04-20-2018 08:25-0400 Body weight 54.45 kg John Corbett LPN [facility] Internal Medicine Work Phone: 04-20-2018 08:25-0400 BP Diastolic 86 mm[Hg] John Corbett LPN [facility] Internal Medicine Work Phone: Comment on above: Patient Position: Sitting; Cuff Location : Left Arm; Cuff Size: Standard 04-20-2018 08:25-0400 BP Systolic 162 mm[Hg] John Corbett LPN [facility] Internal Medicine Work Phone: Comment on above: Patient Position: Sitting; Cuff Location : Left Arm; Cuff Size: Standard 04-20-2018 08:25-0400 BSA (Body Surface Area) 1.58 m2 John Corbett LPN [facility] Internal Medicine Work Phone: 04-20-2018 08:25-0400 Height 163.19 cm John Corbett LPN [facility] Internal Medicine Work Phone: 04-20-2018 08:25-0400 Pulse (Heart Rate) 103 /min John Corbett LPN [facility] Medicine Work Phone: Comment on above: Pattern: Regular 04-20-2018 08:25-0400 Pulse Oximetry 99 % [facility] Work [facility]: Comment on above: Room air 04-20-2018 08:25-0400 Respiratory Rate 17 /min John Corbett LPN [facility] Internal Medicine Work Phone: Comment on above: Pattern: Unlabored 04-20-2018 08:25-0400 SaO2% (BldA) [Mass fraction] 99 % John Corbett LPN [facility]; [facility] Work Phone: Comment on above: Room air 04-20-2018 08:25-0400 Weight 54.45 kg Kristie Meadows [facility] Internal Medicine Work Phone: 04-03-2018 08:27-0400 BMI (Body Mass Index) 20.82 kg/m2 John Corbett LPN [facility] Internal Medicine Work Phone: 04-03-2018 08:27-0400 Body Temperature 97.2 [degF] John Corbett LPN [facility] Internal Medicine Work Phone: 04-03-2018 08:27-0400 Body weight 55.45 kg John Corbett LPN [facility] Internal Medicine Work Phone: 04-03-2018 08:27-0400 BP Diastolic 92 mm[Hg] John Corbett LPN [facility] Internal Medicine Work Phone: Comment on above: Patient Position: Sitting; Cuff Location : Left Arm; Cuff Size: Standard 04-03-2018 08:27-0400 BP Systolic 180 mm[Hg] John Corbett JOSIAS [facility] Internal Medicine Work Phone: Comment on above: Patient Position: Sitting; Cuff Location : Left Arm; Cuff Size: Standard 04-03-2018 08:27-0400 BSA (Body Surface Area) 1.59 m2 John Corbett JOSIAS [facility] Internal Medicine Work Phone: 04-03-2018 08:27-0400 Height 163.19 cm John Aric FERRARA [facility] Internal Medicine Work Phone: 04-03-2018 08:27-0400 Pulse (Heart Rate) 52 /min John Corbett JOSIAS [facility] Work Phone: Comment on above: Pattern: Regular 04-03-2018 08:27-0400 Pulse Oximetry 96 % Kristie Dori [facility] Internal Medicine Work Phone: Comment on above: Room air 04-03-2018 08:27-0400 Respiratory Rate 16 /min John Aric FERRARA [facility] Internal Medicine Work Phone: Comment on above: Pattern: Unlabored 04-03-2018 08:27-0400 SaO2% (BldA) [Mass fraction] 96 % John Corbett LPN [facility] Medicine; [facility] Work Phone: Comment on above: Room air 04-03-2018 08:27-0400 Weight 55.45 kg Kristie Meridatiesha [facility] Internal Medicine Work Phone: 08-30-2017 09:33-0500 BMI (Body Mass Index) 20.82 kg/m2 Terrie Corbett [facility] Internal Medicine Work Phone: 08-30-2017 09:33-0500 Body Temperature 98.1 [degF] Terrie Corbett [facility] Internal Medicine Work Phone: 08-30-2017 09:33-0500 Body weight 55.45 kg eTrrie Corbett [facility] Internal Medicine Work Phone: 08-30-2017 09:33-0500 BP Diastolic 80 mm[Hg] Terrie Corbett [facility] Internal Medicine Work Phone: Comment on above: Patient Position: Sitting; Cuff Location : Left Arm; Cuff Size: Standard 11-15-2017 09:33-0500 BP Systolic 162 mm[Hg] Terrie Corbett [facility] Internal Medicine Work Phone: Comment on above: Patient Position: Sitting; Cuff Location : Left Arm; Cuff Size: Standard 08-30-2017 09:33-0500 BSA (Body Surface Area) 1.59 m2 Terrie Corbett [facility] Internal Medicine Work Phone: 08-30-2017 09:33-0500 Height 163.19 cm Terrie Corbett [facility] Internal Medicine Work Phone: 08-30-2017 09:33-0500 Pulse (Heart Rate) 105 /min Terrie Corbett [facility] Internal Medicine Work Phone: Comment on above: Pattern: Regular 08-30-2017 09:33-0500 Pulse Oximetry 97 % Kristie Meadows [facility] Internal Medicine Work Phone: Comment on above: Room air 08-30-2017 09:33-0500 Respiratory Rate 18 /min Terrie Corbett [facility] Internal Medicine Work Phone: Comment on above: Pattern: Unlabored 08-30-2017 09:33-0500 SaO2% (BldA) [Mass fraction] 97 % Terrie Aric [facility] Internal Medicine; [facility] Work Phone: Comment on above: Room air 08-30-2017 09:33-0500 Weight 55.45 kg Kristie Meadows [facility] Internal Medicine Work Phone: 08-30-2017 09:14-0500 BMI (Body Mass Index) 20.82 kg/m2 Kellie Mitchell RN [facility] Internal Medicine Work Phone: 08-30-2017 09:14-0500 Body weight 55.45 kg Kellie Mitchell RN [facility] Work Phone: 08-30-2017 09:14-0500 BSA (Body Surface Area) 1.59 m2 Kellie Mitchell RN [facility] Work Phone: 08-30-2017 09:14-0500 Height 163.19 cm Kellie Mitchell RN [facility] Work Phone: 08-30-2017 09:14-0500 Weight 55.45 kg Kristie Meadows [facility] Internal Medicine Work Phone: 03-27-2017 11:04-0400 BMI (Body Mass Index) 20.82 kg/m2 Sandy Hopkins [facility] Internal Medicine Work Phone: 03-27-2017 11:04-0400 Body weight 55.45 kg Sandy Hopkins [facility] Internal Medicine Work Phone: 03-27-2017 11:04-0400 BP Diastolic 70 mm[Hg] Sandy Hopkins [facility] Internal Medicine Work Phone: Comment on above: Patient Position: Sitting; Cuff Location : Left Arm; Cuff Size: Standard 03-27-2017 11:04-0400 BP Systolic 150 mm[Hg] Sandy Hopkins [facility] Internal Medicine Work Phone: Comment on above: Patient Position: Sitting; Cuff Location : Left Arm; Cuff Size: Standard 03-27-2017 11:04-0400 BSA (Body Surface Area) 1.59 m2 Sandy Hopkins [facility] Internal Medicine Work Phone: 03-27-2017 11:04-0400 Height 163.19 cm Sandy Hopkins [facility] Internal Medicine Work Phone: 03-27-2017 11:04-0400 Pulse (Heart Rate) 111 /min Sandy Hopkins [facility] Internal Medicine Work Phone: Comment on above: Pattern: Regular 03-27-2017 11:04-0400 Pulse Oximetry 98 % Kristie Meadows [facility] Internal Medicine Work Phone: Comment on above: Room air 03-27-2017 11:04-0400 Respiratory Rate 16 /min Sandy Hopkins [facility] Internal Medicine Work Phone: Comment on above: Pattern: Unlabored 03-27-2017 11:04-0400 SaO2% (BldA) [Mass fraction] 98 % Sandy Hopkins [facility] Internal Medicine; [facility] Internal Medicine Work Phone: Comment on above: Room air 03-27-2017 11:04-0400 Weight 55.45 kg Kristie Meadows [facility] Internal Medicine Work Phone: 02-24-2017 10:040 BMI (Body Mass Index) 20.82 kg/m2 Salma Russell [employer] [facility] Internal Medicine Work Phone: 02-24-2017 10:040 Body Temperature 98.1 [degF] Salma Koorb [employer] [facility] Work Phone: 02-24-2017 10:040 Body weight 55.45 kg Salma Russell [employer] [facility] Work Phone: 02-24-2017 10:040 BP Diastolic 90 mm[Hg] Salma Hananerb [employer] [facility] Work Phone: Comment on above: Patient Position: Sitting; Cuff Location : Left Arm; Cuff Size: Standard 02-24-2017 10:040 BP Systolic 152 mm[Hg] Salma Russell [employer] [facility] Work Phone: Comment on above: Patient Position: Sitting; Cuff Location : Left Arm; Cuff Size: Standard 02-24-2017 10:040 BSA (Body Surface Area) 1.59 m2 Salma Russell [employer] [facility] Work Phone: 02-24-2017 10:040 Height 163.19 cm Salma Russell [employer] [facility] Work Phone: 02-24-2017 10:040 Pulse (Heart Rate) 89 /min Salma Russell [employer] [facility] Internal Medicine Work Phone: Comment on above: Pattern: Regular 02-24-2017 10:040 Pulse Oximetry 95 % Kristie Meadows [facility] Internal Medicine Work Phone: Comment on above: Room air 02-24-2017 10:280400 Respiratory Rate 17 /min Salma Russell [employer] [facility] Work Phone: Comment on above: Pattern: Unlabored 02-24-2017 10:28-0400 SaO2% (BldA) [Mass fraction] 95 % Salma Slarb [employer] [facility]; [facility] Work Phone: Comment on above: Room air 02-24-2017 10:28-0400 Weight 55.45 kg Kristie Meadows [facility] Work Phone: 02-03-2012 08:26-0400 BMI (Body Mass Index) 19.93 kg/m2 Mehreen Zavala RN [facility] Internal Medicine Work Phone: 02-03-2012 08:26-0400 Body Temperature 97.8 [degF] Mehreen Zavala RN [facility] Work Phone: Comment on above: Method: Oral 02-03-2012 08:26-0400 Body weight 53.07 kg Mehreen Zavala RN [facility] Work Phone: 02-03-2012 08:26-0400 BP Diastolic 90 mm[Hg] Mehreen Zavala [facility] Work Phone: Comment on above: Patient Position: Sitting; Cuff Location : Left Arm; Cuff Size: Standard 02-03-2012 08:26-0400 BP Systolic 130 mm[Hg] Mehreen Zavala RN [facility] Work Phone: Comment on above: Patient Position: Sitting; Cuff Location : Left Arm; Cuff Size: Standard 02-03-2012 08:26-0400 BSA (Body Surface Area) 1.56 m2 Mehreen Zavala [facility] Work Phone: 02-03-2012 08:26-0400 Height 163.19 cm Mehreen Zavala RN [facility] Work Phone: 02-03-2012 08:26-0400 Pulse (Heart Rate) 100 /min Mehreen Zavala [facility] Work Phone: Comment on above: Pattern: Regular 02-03-2012 08:26-0400 Respiratory Rate 16 /min Mehreen Zavala [facility] Work Phone: Comment on above: Pattern: Unlabored 02-03-2012 08:26-0400 Weight 53.07 kg Kristie Meadows [facility] Work Phone: 02-07-2011 09:07-0400 BMI (Body Mass Index) 20.61 kg/m2 Jo Bejarano [employer] [facility] Work Phone: 02-07-2011 09:07-0400 Body Temperature 97 [degF] Jo Bejarano [facility] Internal Medicine Work Phone: Comment on above: Method: Oral 02-07-2011 09:070400 Body weight 54.89 kg Jo Bejarano [facility] Internal Medicine Work Phone: 02-07-2011 09:07-0400 BP Diastolic 72 mm[Hg] Jo Bejarano [facility] Work Phone: Comment on above: Patient Position: Sitting; Cuff Location : Left Arm; Cuff Size: Standard 02-07-2011 09:07-0400 BP Systolic 122 mm[Hg] Jo Bejarano [employer] [facility] Work Phone: Comment on above: Patient Position: Sitting; Cuff Location : Left Arm; Cuff Size: Standard 02-07-2011 09:07-0400 BSA (Body Surface Area) 1.58 m2 Jo Bejarano [facility] Work Phone: 02-07-2011 09:07-0400 Height 163.19 cm Jo Bejarano [employer] [facility] Internal Medicine Work Phone: 02-07-2011 09:07-0400 Pulse (Heart Rate) 74 /min Jo Bejarano [facility] Internal Medicine Work Phone: Comment on above: Pattern: Regular 02-07-2011 09:07-0400 Respiratory Rate 15 /min Jo Bejarano [employer] [facility] Work Phone: Comment on above: Pattern: Unlabored 02-07-2011 09:07-0400 Weight 54.89 kg Kristie Meadows [facility] Internal Medicine Work Phone: 02-03-2011 08:12-0400 BMI (Body Mass Index) 20.61 kg/m2 STEVEN Bruner [facility] Internal Medicine Work Phone: 02-03-2011 08:12-0400 Body Temperature 98.4 [degF] STEVEN Bruner LPN [facility] Internal Medicine Work Phone: Comment on above: Method: Oral 02-03-2011 08:12-0400 Body weight 54.89 kg STEVEN Bruner LPN [facility] Internal Medicine Work Phone: 02-03-2011 08:12-0400 BP Diastolic 80 mm[Hg] STEVEN Bruner LPN [facility] Internal Medicine Work Phone: Comment on above: Patient Position: Sitting; Cuff Location : Left Arm; Cuff Size: Standard 02-03-2011 08:12-0400 BP Systolic 120 mm[Hg] STEVEN Bruner LPN [facility] Internal Medicine Work Phone: Comment on above: Patient Position: Sitting; Cuff Location : Left Arm; Cuff Size: Standard 02-03-2011 08:12-0400 BSA (Body Surface Area) 1.58 m2 STEVEN Bruner LPN [facility] Internal Medicine Work Phone: 02-03-2011 08:12-0400 Height 163.19 cm STEVEN Bruner [facility] Internal Medicine Work Phone: 02-03-2011 08:12-0400 Pulse (Heart Rate) 76 /min STEVEN Bruner [employer] [facility] Internal Medicine Work Phone: Comment on above: Pattern: Regular 02-03-2011 08:12-0400 Respiratory Rate 18 /min STEVEN Bruner LPN [facility] Internal Medicine Work Phone: Comment on above: Pattern: Unlabored 02-03-2011 08:12-0400 Weight 54.89 kg Kristie Meadows [facility] Internal Medicine Work Phone: 12-08-2009 11:21-0500 BP Diastolic 74 mm[Hg] [facility] Internal Medicine Work Phone: Comment on above: Patient Position: Sitting; Cuff Location : Right Arm; Cuff Size: Standard 12-08-2009 11:21-0500 BP Systolic 122 mm[Hg] [facility] Internal Medicine Work Phone: Comment on above: Patient Position: Sitting; Cuff Location : Right Arm; Cuff Size: Standard 12-08-2009 11:21-0500 Pulse (Heart Rate) 76 /min Jeannie Sirl [facility] Work Phone: Comment on above: Pattern: Regular 12-08-2009 11:21-0500 Respiratory Rate 16 /min Jeannie Vasquez [facility] Work Phone: Comment on above: Pattern: Unlabored 04-29-2009 09:20-0400 Body weight 0 kg STEVEN Bruner LPN [facility] Work Phone: 04-29-2009 09:20-0400 BP Diastolic 78 mm[Hg] STEVEN Bruner LPN [facility] Work Phone: Comment on above: Patient Position: Sitting; Cuff Location : Left Arm; Cuff Size: Standard 04-29-2009 09:20-0400 BP Systolic 118 mm[Hg] STEVEN Bruner LPN [facility] Work Phone: Comment on above: Patient Position: Sitting; Cuff Location : Left Arm; Cuff Size: Standard 04-29-2009 09:20-0400 Head Circumference 0 cm Kristie Meadows [facility] Internal Medicine Work Phone: 04-29-2009 09:20-0400 Head Occipital-frontal circumference 0 cm STEVEN Bruner LPN [facility]; [facility] Work Phone: 04-29-2009 09:20-0400 Height 0 cm STEVEN Bruner LPN [facility] Work Phone: 04-29-2009 09:20-0400 Pulse (Heart Rate) 74 /min STEVEN Bruner LPN [facility] Work Phone: Comment on above: Pattern: Regular 04-29-2009 09:20-0400 Respiratory Rate 16 /min STEVEN Bruner LPN [facility] Work Phone: Comment on above: Pattern: Unlabored 04-29-2009 09:20-0400 Weight 0 kg Kristie Meadows [facility] Internal Medicine Work Phone: 03-17-2009 09:22-0400 Body Temperature 97.6 [degF] Stephanie Mendoza [facility] Internal Medicine Work Phone: Comment on above: Method: Oral 03-17-2009 09:22-0400 Body weight 55.88 kg [facility] Work Phone: 03-17-2009 09:22-0400 BP Diastolic 78 mm[Hg] [facility] Work Phone: Comment on above: Patient Position: Sitting; Cuff Location : Left Arm; Cuff Size: Standard 03-17-2009 09:22-0400 BP Systolic 116 mm[Hg] [facility] Work Phone: Comment on above: Patient Position: Sitting; Cuff Location : Left Arm; Cuff Size: Standard 03-17-2009 09:22-0400 Head Circumference 0 cm Kristie Myerstiesha [facility] Internal Medicine Work Phone: 03-17-2009 09:22-0400 Head Occipital-frontal circumference 0 cm Stephanie Mendoza [facility]; [facility] Work Phone: 03-17-2009 09:22-0400 Height 0 cm [facility] Work Phone: 03-17-2009 09:22-0400 Pulse (Heart Rate) 82 /min Stephanie Mendoza [facility] Internal Medicine Work Phone: Comment on above: Pattern: Regular 03-17-2009 09:22-0400 Respiratory Rate 18 /min Stephanie Mendoza [facility] Internal Medicine Work Phone: Comment on above: Pattern: Unlabored 03-17-2009 09:22-0400 Weight 55.88 kg Kristie Meadows [facility] Internal Medicine Work Phone: 03-12-2009 09:23-0400 BMI (Body Mass Index) 20.95 kg/m2 STEVEN Bruner LPN [facility] Internal Medicine Work Phone: 03-12-2009 09:23-0400 Body weight 55.79 kg STEVEN Bruner LPN [facility] Work Phone: 03-12-2009 09:23-0400 BP Diastolic 78 mm[Hg] STEVEN Bruner [employer] [facility] Work Phone: Comment on above: Patient Position: Sitting; Cuff Location : Left Arm; Cuff Size: Standard 03-12-2009 09:23-0400 BP Systolic 118 mm[Hg] STEVEN Brnuer LPN [facility] Work Phone: Comment on above: Patient Position: Sitting; Cuff Location : Left Arm; Cuff Size: Standard 03-12-2009 09:23-0400 BSA (Body Surface Area) 1.6 m2 STEVEN Brnuer LPN [facility] Work Phone: 03-12-2009 09:23-0400 Head Circumference 0 cm Kristie Meadows [facility] Internal Medicine Work Phone: 03-12-2009 09:23-0400 Head Occipital-frontal circumference 0 cm STEVEN Bruner LPN [facility]; [facility] Work Phone: 03-12-2009 09:23-0400 Height 163.19 cm STEVEN Bruner LPN [facility] Work Phone: 03-12-2009 09:23-0400 Pulse (Heart Rate) 84 /min STEVEN Bruner LPN [facility] Work Phone: Comment on above: Pattern: Regular 03-12-2009 09:23-0400 Respiratory Rate 16 /min STEVEN Bruner LPN [facility] Work Phone: Comment on above: Pattern: Unlabored 03-12-2009 09:23-0400 Weight 55.79 kg Kristie Meadows [facility] Internal Medicine Work Phone: 03-10-2009 10:14-0400 Body Temperature 98.1 [degF] Stephanie [facility] Internal Medicine Work Phone: Comment on above: Method: Oral 03-10-2009 10:14-0400 Body weight 56.5 kg Stephanie [facility] Internal Medicine Work Phone: 03-10-2009 10:14-0400 BP Diastolic 70 mm[Hg] [facility] Internal Medicine Work Phone: Comment on above: Patient Position: Sitting; Cuff Location : Left Arm; Cuff Size: Standard 03-10-2009 10:14-0400 BP Systolic 122 mm[Hg] Stephanie [facility] Internal Medicine Work Phone: Comment on above: Patient Position: Sitting; Cuff Location : Left Arm; Cuff Size: Standard 03-10-2009 10:140400 Head Circumference 0 cm Kristie Meadows [facility] Internal Medicine Work Phone: 03-10-2009 10:140400 Head Occipital-frontal circumference 0 cm Stephanie Mendoza [facility]; [facility] Work Phone: 03-10-2009 10:140400 Height 0 cm Stephanie Mendoza [facility] Internal Medicine Work Phone: 03-10-2009 10:14-0400 Pulse (Heart Rate) 88 /min Stephanie Mendoza [facility] Work Phone: Comment on above: Pattern: Regular 03-10-2009 10:14-0400 Respiratory Rate 18 /min [facility] Work Phone: Comment on above: Pattern: Unlabored 03-10-2009 10:14-0400 Weight 56.5 kg Kristie Meadows [facility] Work Phone: 03-06-2009 11:58-0400 Body weight 57.41 kg Daniella Figueroa RN [facility] Work Phone: 03-06-2009 11:58-0400 BP Diastolic 80 mm[Hg] Daniella Figueroa RN [facility] Work Phone: Comment on above: Patient Position: Sitting; Cuff Location : Left Arm; Cuff Size: Large 03-06-2009 11:58-0400 BP Systolic 132 mm[Hg] Daniella Figueroa RN [facility] Work Phone: Comment on above: Patient Position: Sitting; Cuff Location : Left Arm; Cuff Size: Large 03-06-2009 11:58-0400 Head Circumference 0 cm Kristie Meadows [facility] Internal Medicine Work Phone: 03-06-2009 11:58-0400 Head Occipital-frontal circumference 0 cm Daniella Figueroa RN [facility]; [facility] Work Phone: 03-06-2009 11:58-0400 Height 0 cm Daniella Figueroa RN [facility] Work Phone: 03-06-2009 11:58-0400 Pulse (Heart Rate) 80 /min Daniella Messenger RN [facility] Work Phone: Comment on above: Pattern: Regular 03-06-2009 11:58-0400 Respiratory Rate 20 /min Daniella Figueroa RN [facility] Work Phone: Comment on above: Pattern: Unlabored 03-06-2009 11:58-0400 Weight 57.41 kg Kristie Meadows [facility] Internal Medicine Work Phone: 03-05-2009 09:10-0400 Body Temperature 98.3 [degF] Stephanie [facility] Internal Medicine Work Phone: Comment on above: Method: Oral 03-05-2009 09:10-0400 Body weight 57.41 kg Stephanie [facility] Internal Medicine Work Phone: 03-05-2009 09:10-0400 BP Diastolic 70 mm[Hg] Stephanie [facility] Medicine Work Phone: Comment on above: Patient Position: Sitting; Cuff Location : Left Arm; Cuff Size: Standard 03-05-2009 09:10-0400 BP Systolic 122 mm[Hg] Stephanie [facility] Internal Medicine Work Phone: Comment on above: Patient Position: Sitting; Cuff Location : Left Arm; Cuff Size: Standard 03-05-2009 09:10-0400 Head Circumference 0 cm Kristie Meadows [facility] Internal Medicine Work Phone: 03-05-2009 09:10-0400 Head Occipital-frontal circumference 0 cm Stephanie [facility]; [facility] Medicine Work Phone: 03-05-2009 09:10-0400 Height 0 cm Stephanie [facility] Medicine Work Phone: 03-05-2009 09:10-0400 Pulse (Heart Rate) 94 /min Stephanie [facility] Medicine Work Phone: Comment on above: Pattern: Regular 03-05-2009 09:10-0400 Respiratory Rate 16 /min Stephanie [facility] Medicine Work Phone: Comment on above: Pattern: Unlabored 03-05-2009 09:10-0400 Weight 57.41 kg Kristie Meadows [facility] Internal Medicine Work Phone: 03-04-2009 09:01-0400 Body weight 57.61 kg Daniella Figueroa RN [facility] Work Phone: 03-04-2009 09:01-0400 BP Diastolic 68 mm[Hg] Daniella Figueroa RN [facility] Work Phone: Comment on above: Patient Position: Sitting; Cuff Location : Left Arm; Cuff Size: Large 03-04-2009 09:01-0400 BP Systolic 122 mm[Hg] Daniella Figueroa RN [facility] Work Phone: Comment on above: Patient Position: Sitting; Cuff Location : Left Arm; Cuff Size: Large 03-04-2009 09:01-0400 Head Circumference 0 cm Kristie Meridatiesha [facility] Internal Medicine Work Phone: 03-04-2009 09:01-0400 Head Occipital-frontal circumference 0 cm Daniella Figueroa RN [facility]; [facility] Work Phone: 03-04-2009 09:01-0400 Height 0 cm Daniella Figueroa RN [facility] Work Phone: 03-04-2009 09:01-0400 Pulse (Heart Rate) 88 /min Daniella Figueroa RN [facility] Work Phone: Comment on above: Pattern: Regular 03-04-2009 09:01-0400 Respiratory Rate 20 /min Daniella Figueroa RN [facility] Work Phone: Comment on above: Pattern: Unlabored 03-04-2009 09:01-0400 Weight 57.61 kg Kristie Meadows [facility] Internal Medicine Work Phone: 03-24-2008 08:07-0400 Body Temperature 98.2 [degF] STEVEN Bruner LPN [facility] Work Phone: Comment on above: Method: Oral 03-24-2008 08:07-0400 Body weight 57.61 kg STEVEN Bruner LPN [facility] Work Phone: 03-24-2008 08:07-0400 BP Diastolic 80 mm[Hg] STEVEN Bruner LPN [facility] Work Phone: Comment on above: Patient Position: Sitting; Cuff Location : Left Arm; Cuff Size: Standard 03-24-2008 08:07-0400 BP Systolic 120 mm[Hg] STEVEN Bruner LPN [facility] Work Phone: Comment on above: Patient Position: Sitting; Cuff Location : Left Arm; Cuff Size: Standard 03-24-2008 08:07-0400 Head Circumference 0 cm Kristie Meadows [facility] Internal Medicine Work Phone: 03-24-2008 08:07-0400 Head Occipital-frontal circumference 0 cm STEVEN Bruner LPN [facility] Medicine; [facility] Work Phone: 03-24-2008 08:07-0400 Height 0 cm STEVEN Bruner LPN [facility] Medicine Work Phone: 03-24-2008 08:07-0400 Pulse (Heart Rate) 74 /min STEVEN Bruner LPN [facility] Internal Medicine Work Phone: Comment on above: Pattern: Regular 03-24-2008 08:07-0400 Respiratory Rate 18 /min STEVEN Bruner LPN [facility] Internal Medicine Work Phone: Comment on above: Pattern: Unlabored 03-24-2008 08:07-0400 Weight 57.61 kg Kristie Meadows [facility] Internal Medicine Work Phone: 02-13-2007 09:11-0400 Body Temperature 97.7 [degF] STEVEN Bruner LPN [facility] Internal Medicine Work Phone: Comment on above: Method: Oral 02-13-2007 [id number] Body weight 58.06 kg STEVEN Bruner LPN [facility] Internal Medicine Work Phone: 02-13-2007 09:11-0400 BP Diastolic 78 mm[Hg] STEVEN Bruner LINER WORKER [facility] Work Phone: Comment on above: Patient Position: Sitting; Cuff Location : Left Arm; Cuff Size: Standard 02-13-2007 09:11-0400 BP Systolic 104 mm[Hg] STEVEN Bruner LPN [facility] Internal Medicine Work Phone: Comment on above: Patient Position: Sitting; Cuff Location : Left Arm; Cuff Size: Standard 02-13-2007 09:11-0400 Head Circumference 0 cm Kristie Meadows [facility] Internal Medicine Work Phone: 02-13-2007 09:11-0400 Head Occipital-frontal circumference 0 cm STEVEN Bruner LPN [facility]; [facility] Work Phone: 02-13-2007 09:11-0400 Height 0 cm STEVEN Bruner LPN [facility] Work Phone: 02-13-2007 09:11-0400 Pulse (Heart Rate) 76 /min STEVEN Bruner LPN [facility] Work Phone: Comment on above: Pattern: Irregular 02-13-2007 09:11-0400 Respiratory Rate 20 /min STEVEN Bruner LPN [facility] Work Phone: Comment on above: Pattern: Unlabored 02-13-2007 09:11-0400 Weight 58.06 kg Kristie Meadows [facility] Internal Medicine Work Phone: 12-08-2006 12:40-0500 Body Temperature 98.8 [degF] Kristie Meadows [facility] Internal Medicine Work Phone: Comment on above: Method: Oral 12-08-2006 12:40-0500 Body weight 0 kg Kristie Meadows [facility] Internal Medicine Work Phone: 12-08-2006 12:40-0500 BP Diastolic 80 mm[Hg] Kristie Meadows [facility] Medicine Work Phone: Comment on above: Patient Position: Sitting; Cuff Location : Right Arm; Cuff Size: Standard 12-08-2006 12:40-0500 BP Systolic 112 mm[Hg] Kristie Meadows [facility] Internal Medicine Work Phone: Comment on above: Patient Position: Sitting; Cuff Location : Right Arm; Cuff Size: Standard 12-08-2006 12:40-0500 Head Circumference 0 cm Kristie Meadows [facility] Internal Medicine Work Phone: 12-08-2006 12:40-0500 Head Occipital-frontal circumference 0 cm Kristie Meadows [facility] Work Phone: [facility]; [facility] Work Phone: 12-08-2006 12:40-0500 [facility] Phone: 12-08-2006 12:40-0500 Pulse (Heart Rate) 84 /min [facility] Work Phone: Comment on above: Pattern: Regular 12-08-2006 12:40-0500 Respiratory Rate 16 /min [facility] Work Phone: Comment on above: Pattern: Unlabored 12-08-2006 12:40-0500 [facility] Work Phone: Encounters Encounter Date Encounter Type Care Provider Facility Start: 04-09-2025 End: 04-09-2025 Emergency department patient visit Martina Conner [facility] Work Phone: -Emergency Department Work Phone: Start: 04-07-2025 End: 04-07-2025 ambulatory Martina Conner [facility] Work Phone: [facility] Work Phone: Start: 04-07-2025 End: 04-07-2025 Patient encounter procedure Thomas KO -[facility] Work Phone: Start: 04-07-2025 End: 04-07-2025 ambulatory Thomas KO Facility:[facility] Start: 03-06-2025 End: 03-06-[address] Robert Funk MD -[facility] Work Phone: Start: 03-06-2025 End: 03-06-2025 ambulatory Cayla Caicedo Facility:[facility] Start: 12-26-2024 End: 12-26-2024 ambulatory Martina Conner [facility] Work Phone: [facility] Work Phone: Start: 12-26-2024 End: 12-26-[address] Cayla Caicedo MD -Labor[facility], [place] Start: 12-26-2024 End: 12-26-[address] Cayla Caicedo MD -[facility] Work Phone: Start: 12-26-2024 End: 12-26-2024 ambulatory Cayla Marifer Facility:[facility] Start: 12-26-2024 End: 12-26-2024 ambulatory [facility] Facility:[facility] Start: 10-03-2024 End: 10-03-2024 Patient encounter procedure Mariam KO -[facility] Work Phone: Start: 10-03-2024 End: 10-03-2024 ambulatory Mariam KO Facility:[facility] Start: 09-30-2024 End: 09-30-2024 Patient encounter procedure Martina Conner NP-[facility] -[facility] Work Phone: Start: 09-30-2024 End: 09-30-2024 ambulatory Martina Conner Facility:[facility] Start: 07-30-2024 End: 07-30-2024 Emergency department patient visit Toni Sharma Facility:[facility] Start: 04-22-2024 End: 04-23-2024 ambulatory Martina Ubaldo Facility:[facility] Start: 04-12-2024 End: 04-12-2024 ambulatory Martina Ubaldo Facility:[facility] Start: 01-09-2024 End: 01-09-2024 ambulatory [facility] Work Phone: Start: 01-09-2024 End: 01-09-2024 Patient encounter procedure [facility] Work Phone: Start: 11-15-2023 End: 11-15-2023 ambulatory [facility] Work Phone: Start: 11-15-2023 End: 11-15-2023 Patient encounter procedure [facility] Work Phone: Start: 08-04-2023 End: 08-04-2023 Annotation/Addendum Martina Conner CNP Work Phone: [facility] Start: 08-03-2023 End: 08-03-2023 ambulatory [facility] Martina Conner Work Phone: [facility] Work Phone: Start: 08-03-2023 End: 08-03-2023 Patient encounter procedure [facility] Martina Conner Work Phone: [facility] Work Phone: Start: 07-12-2023 End: 07-12-2023 Office outpatient visit 15 minutes Martina Conner HYPNOTHERAPIST Work Phone: [facility] Start: 07-12-2023 Review Martina Conner HYPNOTHERAPIST Work Phone: [facility] Start: 06-29-2023 End: 06-29-2023 Patient encounter procedure [facility] Martina Conner Work Phone: [facility] Work Phone: Start: 06-26-2023 End: 06-26-2023 Lab Order Martina Conner HYPNOTHERAPIST Work Phone: [facility] Start: 06-26-2023 End: 06-26-2023 ambulatory [facility] Martina Conner Work Phone: [facility] Work Phone: Start: 06-26-2023 End: 06-26-2023 Patient encounter procedure [facility] Martina Conner Work Phone: [facility] Work Phone: Start: 05-31-2023 End: 05-31-2023 Patient encounter procedure [facility] Martina Conner Work Phone: [facility] Work Phone: Start: 05-17-2023 Non-patient / Non-visit [facility] Saravanan Conner Work Phone: [facility] Start: 05-17-2023 Non-patient / Non-visit [facility] Saravanan Conner Work Phone: [facility] Work Phone: Start: 05-17-2023 Non-patient / Non-visit [facility] C arolyn Ubaldo Work Phone: [facility] Start: 05-16-2023 Non-patient / Non-visit [facility] C arolyn Ubaldo Work Phone: [facility] Work Phone: Start: 05-16-2023 Non-patient / Non-visit [facility] C arolyn Ubaldo Work Phone: [facility] Start: 05-15-2023 Non-patient / Non-visit [facility] C arolyn Ubaldo Work Phone: [facility] Work Phone: Start: 05-15-2023 Non-patient / Non-visit [facility] C arolyn Ubaldo Work Phone: [facility] Start: 05-15-2023 Non-patient / Non-visit [facility] C arolyn Ubaldo Work Phone: [facility] Start: 05-14-2023 Non-patient / Non-visit [facility] C arolyn Ubaldo Work Phone: [facility] Start: 05-14-2023 Non-patient / Non-visit [facility] C arolyn Ubaldo Work Phone: [facility] Work Phone: Start: 05-14-2023 Non-patient / Non-visit [facility] C arolyn Ubaldo Work Phone: [facility] Start: 05-13-2023 Non-patient / Non-visit [facility] C arolyn Ubaldo Work Phone: [facility] Start: 05-13-2023 End: 05-17-2023 Evaluation and management of inpatient [facility] Work Phone: Start: 05-09-2023 End: 05-09-2023 Emergency department patient visit [facility]Emergency Department Work Phone: Start: 05-02-2023 End: 05-02-2023 ambulatory [facility] Work Phone: Start: 05-02-2023 End: 05-02-2023 Patient encounter procedure [facility]-Outpatient Bone Densitometry Work Phone: Start: 01-04-2023 ambulatory Martina Conner CNP [facility] Start: 01-04-2023 End: 01-04-2023 Office outpatient visit 15 minutes Martina Conner CNP Work Phone: [facility] Start: 11-18-2022 End: 11-18-2022 ambulatory [facility] Work Phone: Start: 11-18-2022 End: 11-18-2022 Patient encounter procedure [facility]Laboratory Start: 11-04-2022 End: 11-04-2022 Patient encounter procedure Martina Conner CNP Work Phone: [facility] Start: 11-03-2022 End: 11-03-2022 [facility] Start: 09-05-2022 End: 09-05-2022 Office outpatient visit 15 minutes Martina Conner CNP Work Phone: [facility] Start: 06-02-2022 End: 06-02-2022 Discharged Recurring [facility] Kirstie Meadows [facility]ER Work Phone: [facility]-Physical Therapy Start: 06-01-2022 End: 06-01-2022 Patient encounter procedure [facility] Kristie Meadows [facility] GRINDER Work Phone: [facility] Start: 05-03-2022 End: 05-06-2022 Office outpatient visit 5 minutes Martina Conner CNP Work Phone: [facility] Start: 05-03-2022 Review Martina Conner HYPNOTHERAPIST Work Phone: [facility] Start: 05-03-2022 Registered Recurring [facility] Kristie Meridaa DI[facility] GRINDER Work Phone: [facility] Start: 05-02-2022 End: 05-02-2022 Patient encounter procedure [facility] Kristie Meridaa [facility] GRINDER Work Phone: [facility] Start: 05-02-2022 End: 05-02-2022 Office outpatient visit 25 minutes Martina Conner HYPNOTHERAPIST Work Phone: [facility] Start: 04-28-2022 End: 04-28-2022 Patient encounter procedure [facility] Kristie Meridaa DIAMOND GRINDER Work Phone: [facility]-Outpatient Breast Imaging Start: 03-29-2022 End: 03-29-2022 Annotation/Addendum Martina Conner HYPNOTHERAPIST Work Phone: [facility] Start: 03-29-2022 End: 03-29-2022 Discharged Recurring [facility] Kristie Myersesa DIAMOND GRINDER Work Phone: [facility] Start: 03-09-2022 Registered Recurring [facility] Kristie Ciesa DI[employer]OND GRINDER Work Phone: [facility]Physical [facility] Start: 03-04-2022 End: 03-04-2022 Patient encounter procedure [facility] Kristie Myersesa DIAMOND GRINDER Work Phone: [facility]Cardi[facility] Services Start: 03-03-2022 End: 03-03-2022 Patient encounter procedure [facility] Kristie Ciesa [facility]ER Work Phone: [facility] Start: 03-02-2022 End: 03-02-2022 Patient encounter procedure [facility] Kristie Ciesa DI[facility] GRINDER Work Phone: [facility] Start: 01-21-2022 End: 01-21-2022 Office outpatient visit 15 minutes Kristie Meridaa Work Phone: [facility] Start: 01-17-2022 End: 01-17-2022 Patient encounter procedure [facility]-Cat Scan, [facility] Start: 01-14-2022 End: 01-14-2022 Patient encounter procedure [facility]Cardi[facility] Start: 01-14-2022 End: 01-14-2022 Office outpatient visit 15 minutes Kristie Meridaa Work Phone: [facility] Start: 01-07-2022 End: 01-07-2022 [facility] Start: 01-07-2022 End: 01-07-2022 Office outpatient visit 25 minutes Kristie Fuada Work Phone: [facility] Start: 12-15-2021 End: 12-15-2021 Patient encounter procedure [facility] Start: 12-15-2021 End: 12-15-2021 Office outpatient visit 25 minutes Kristie Meadows HYPNOTHERAPIST Work Phone: [facility] Start: 11-10-2021 End: 11-10-2021 Patient encounter procedure [facility] Start: 09-29-2021 End: 09-29-2021 Annotation/Addendum Kristie Meadows HYPNOTHERAPIST Work Phone: [facility] Start: 09-29-2021 Patient encounter procedure [facility] Start: 08-25-2021 End: 08-25-2021 Office outpatient visit 25 minutes Kristie Meadows HYPNOTHERAPIST Work Phone: [facility] Start: 06-07-2021 End: 06-07-2021 Lab Order Kristie Meridaa HYPNOTHERAPIST Work Phone: [facility] Start: 04-23-2021 End: 04-23-2021 Office outpatient visit 25 minutes Krsitie Meridaa HYPNOTHERAPIST Work Phone: [facility] Start: 03-19-2021 End: 03-19-2021 Annotation/Addendum Kristie Meadows HYPNOTHERAPIST Work Phone: [facility] Start: 03-17-2021 End: 03-17-2021 Office outpatient visit 15 minutes Kristie Ciesa HYPNOTHERAPIST Work Phone: [facility] Start: 12-24-2020 End: 12-24-2020 Office outpatient visit 5 minutes Kristie Meridatiesha Morales [facility] Start: 12-24-2020 Review Kristie Dill christo Internal Medicine Start: 12-21-2020 End: 12-21-2020 Office outpatient visit 25 minutes Kristie Luciapernell [facility] Start: 08-19-2020 End: 08-19-2020 Office outpatient visit 25 minutes Kristie Meridatiesha [facility] Start: 06-03-2020 End: 06-03-2020 Annotation/Addendum Kristie Meadows [facility] Start: 06-02-2020 End: 06-02-2020 Lab Order Kristie Meadows Andrew [facility]person [facility] Start: 04-08-2020 End: 04-08-2020 Postop follow up visit related to original px Kristie Fuadtiesha [facility] Start: 04-07-2020 End: 04-07-2020 Office outpatient visit 25 minutes Kristie Luicapernell [facility] Start: 03-30-2020 End: 03-30-2020 Phone Encounter Kristie Meadows Andrew [facility] Start: 07-10-2019 End: 07-10-2019 Office outpatient visit 25 minutes Kristie Meridatiesha [facility] Start: 07-02-2019 End: 07-02-2019 Lab Order Kristie Meadows [facility] Start: 07-02-2019 Review Kristie Carbajal christo [facility] Start: 06-04-2019 Review Kristie Carbajal christo [facility] Start: 06-03-2019 End: 06-03-2019 Annotation/Addendum Kristie Meadows [facility] Start: 04-09-2019 End: 04-10-2019 Patient encounter procedure Kristie Meridatiesha [facility] Start: 04-09-2019 Review Kristie Carbajal christo [facility] Start: 04-09-2019 End: 04-09-2019 Patient encounter procedure Martina Conner HYPNOTHERAPIST Work Phone: [facility] Start: 04-09-2019 End: 04-09-2019 Periodic preventive med est patient 65yrs& older Kristie Luciapernell Morales [facility] Start: 03-04-2019 End: 03-04-2019 Lab Order Kristie Meadows [facility] Start: 03-01-2019 End: 03-01-2019 Phone Encounter Kristie Meadows [facility] Start: 03-01-2019 End: 03-01-2019 Phone Encounter Kristie Meadows [facility] Start: 02-27-2019 End: 02-27-2019 Office outpatient visit 25 minutes Kristie Meridatiesha [facility] Start: 02-27-2019 End: 02-27-2019 Physical examination Martina Conner JEANNETTE Work Phone: [facility] Start: 02-27-2019 Review Kristie Meadows Raven christo [facility] Medicine Start: 10-26-2018 End: 10-26-2018 Annotation/Addendum Kristie Meadows [facility] Start: 10-24-2018 End: 10-24-2018 Office outpatient visit 15 minutes Kristie Morales [facility] Start: 10-15-2018 End: 10-15-2018 Office outpatient visit 25 minutes Kristie Myersantoniotiesha Morales [facility] Start: 10-15-2018 End: 10-15-2018 Physical examination Martina Conner HYPNOTHERAPIST Work Phone: [facility] Start: 10-03-2018 End: 10-03-2018 Office outpatient visit 25 minutes Kristie Myersantoniotiesha Morales [facility] Start: 09-21-2018 End: 09-21-2018 Lab Order Kristie Meridatiesha Morales [facility] Start: 07-24-2018 End: 07-24-2018 Office outpatient visit 25 minutes Kristie Fuadtiesha [facility] Start: 05-09-2018 End: 05-09-2018 Phone Encounter Kirstie Meadows Andrew [facility] Start: 04-20-2018 End: 04-20-2018 Office outpatient visit 15 minutes Kristie Morales [facility] Start: 04-03-2018 End: 04-03-2018 Office outpatient visit 15 minutes Kristie Myersantoniotiesha Morales [facility] Start: 02-21-2018 End: 02-21-2018 Phone Encounter Kristie Meridatiesha Morales [facility] Start: 02-16-2018 End: 02-16-2018 Phone Encounter Kristie Meadows [facility] Start: 08-30-2017 End: 08-30-2017 Office outpatient visit 25 minutes Kristie Morales [facility] Start: 04-10-2017 End: 04-10-2017 Lab Order Kristie Myersantoniotiesha Morales [facility] Start: 03-27-2017 End: 03-27-2017 Phone Encounter Kristie Ciestiesha Morales [facility] Start: 03-27-2017 End: 03-27-2017 Office outpatient visit 15 minutes Kristie Morales [facility] Start: 02-24-2017 End: 02-24-2017 Office consultation new/estab patient 40 min Kristie Morales [facility] Start: 02-15-2017 End: 02-15-2017 Annotation/Addendum Kristie Morales [facility] Start: 12-06-2012 End: 12-06-2012 Lab Order Kristie Dori Morales [facility] Start: 06-07-2012 End: 06-07-2012 Lab Order Kristie Meridatiesha Morales [facility] Start: 02-09-2012 End: 02-09-2012 Phone Encounter Kristie Morales [facility] Start: 02-03-2012 End: 02-03-2012 Patient encounter procedure Kristie Morales Internal Medicine Start: 01-26-2012 End: 01-26-2012 Annotation/Addendum Kristie Morales [facility] Start: 12-26-2011 End: 12-26-2011 Annotation/Addendum Kristie Myersantoniotiesha Morales [facility]person [facility] Start: 04-28-2011 End: 04-28-2011 Annotation/Addendum Kristie Myersantoniotiesha Morales [facility] Start: 02-07-2011 End: 02-07-2011 Office outpatient visit 10 minutes Kristie Morales [facility] Start: 02-03-2011 End: 02-03-2011 Patient encounter procedure Kristie Morales [facility] Start: 01-03-2011 End: 01-03-2011 Phone Encounter Kristie Morales [facility] Start: 12-08-2009 End: 12-08-2009 Patient encounter procedure Kristie Morales [facility] Start: 10-21-2009 End: 10-21-2009 Phone Encounter Kristie Morales [facility] Start: 04-29-2009 End: 04-29-2009 Office outpatient visit 15 minutes Kristie Morales [facility] Start: 03-17-2009 End: 03-17-2009 Office outpatient visit 25 minutes Kristie Morales [facility] Start: 03-12-2009 End: 03-12-2009 Patient encounter procedure Kristie Morales [facility] Start: 03-10-2009 End: 03-10-2009 Office outpatient visit 10 minutes Kristie Morales [facility] Start: 03-06-2009 End: 03-06-2009 Patient encounter procedure Kristie [facility] Start: 03-05-2009 End: 03-05-2009 Office outpatient visit 10 minutes Kristie Meadows [facility] Start: 03-04-2009 End: 03-04-2009 Patient encounter procedure Kristie Meadows [facility] Start: 11-27-2008 End: 11-27-2008 Historical Summary Kristie Meadows [facility] Start: 03-24-2008 End: 03-25-2008 Patient encounter procedure Kristie Meadows [facility] Start: 02-13-2007 End: 02-13-2007 Patient encounter procedure Kristie Meadows [facility] Start: 02-09-2007 End: 02-09-2007 Historical Summary Kristie Meadows [facility] Start: 12-08-2006 End: 12-08-2006 Patient encounter procedure Kristie Meadows [facility] Patient encounter procedure John Corbett LPN [facility]; [facility] Work Phone: Patient encounter procedure John Corbett LPN [facility]; [facility] Work Phone: Patient encounter procedure John Corbett LPN [facility]; [facility] Work Phone: Patient encounter procedure John Corbett LPN [facility]; [facility] Work Phone: Patient encounter procedure John Corbett LPN [facility]; [facility] Work Phone: Patient encounter procedure Salma Russell LPN [facility]; [facility] Work Phone: Patient encounter procedure Yessenia Saleh MA [facility]; [facility] Work Phone: Patient encounter procedure Salma Russell LPN [facility]; [facility] Work Phone: Patient encounter procedure Salma Russell LPN [facility]; [facility] Work Phone: Physical examination John Corbett LPN [facility]; [facility] Work Phone: Comment on above: Surgery on March [address] 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 Work Phone: Comment on above: Surgery on March [address] 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 Work Phone: Comment on above: Surgery on March [address] 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 Work Phone: Comment on above: Surgery on March [address] 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 Work Phone: Comment on above: Surgery on March [address] 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; [facility] Work Phone: Comment on above: Surgery on March [address] 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 Procedures Date Procedure Procedure Detail Performing Clinician Start: 04-09-2025 X-ray of lumbar spine, two or three views Martina DOBBINS Work Phone: Start: 04-09-2025 Plain x-ray of hand Martina DOBBINS Work Phone: Start: 04-07-2025 Plain x-ray of pelvis and lower extremity Martina Conner [employer] Work Phone: Start: 04-07-2025 X-ray of lumbar spine, two or three views Martina Conner [employer] Work Phone: Start: 12-26-2024 Antibody to centromere measurement Martina Conner [employer] Work Phone: Comment on above: Previous reported result: TNP AIEdited b y: INFCE on 12/27/24:1109 AMENDED REPORT 12/27/24 1104 ANTI-CENT B previously reported as: Test not performed Start: 12-26-2024 Antibody to extractable nuclear antigen measurement Martina Conner [employer] Work Phone: Comment on above: Previous reported result: TNP AIEdited b y: INFCE on 12/27/24:1109 AMENDED REPORT 12/27/24 1107 PURI Ab previously reported as: Test not performed Start: 12-26-2024 Antibody to JAMI-1 measurement Martina vo [employer] Work Phone: Comment on above: Previous reported result: TNP AIEdited b y: INFCE on 12/27/24:1109 AMENDED REPORT 12/27/24 1102 ANTI-JAMI previously reported as: Test not performed Start: 12-26-2024 Antibody to lupus La protein measurement Martina Conner [employer] Work Phone: Comment on above: Previous reported result: TNP AIEdited b y: INFCE on 12/27/24:1109 AMENDED REPORT 12/27/24 1103 Anti-SS-B previously reported as: Test not performed Start: 12-26-2024 Antibody to SS-A measurement Martina vo [employer] Work Phone: Comment on above: Previous reported result: TNP AIEdited b y: INFCE on 12/27/24:1109 AMENDED REPORT 12/27/24 1100 Anti-SS-A previously reported as: Test not performed Start: 03-13-2025 Autoantibody measurement Martina Conner [employer] Work Phone: Comment on above: Previous reported result: TNP AIEdited b y: INFCE on 12/27/24:1109 AMENDED REPORT 12/27/24 1109 ANTICHROMATIN previously reported as: Test not performed Start: 12-26-2024 Measurement of Borrelia burgdorferi antibody Martina Conner [employer] Work Phone: Comment on above: Lyme antibodies not detected. Reflex donato ting is notindicated.No laboratory evidence of infection with B. burgdorferi(Lyme disease). Negative results may occur in patientsrecently infected (less than or equal to 14 days) with B.burgdorferi. If recent infection is suspected, repeattesting on a new sample collected in 7 to 14 days isrecommended. Start: 12-26-2024 LAY OUT AND DETAIL DRAFTER antibody measurement Martina Conner [employer] Work Phone: Comment on above: Previous reported result: TNP AIEdited b y: INFCE on 12/27/24:1109 AMENDED REPORT 12/27/24 110 LAY OUT AND DETAIL DRAFTER Ab previously reported as: Test not performed Start: 12-26-2024 Total iron binding capacity measurement Martina Conner [employer] Work Phone: Start: 12-26-2024 Vitamin D, 25-hydroxy measurement Martina Conner [employer] Work Phone: Comment on above: Vitamin D StatusDeficiency: <20 ng/mL (5 0nmol/L)Insufficiency: 20-30 ng/mL (50-75 nmol/L)Sufficiency: 30-100 ng/mL (75-250 nmol/L)Toxicity: >100 ng/mL (>250 nmol/L) Start: 06-29-2023 End: 06-29-2023 Cardiology Visit Report Procedure Note: See Note; NOTES: [facility] [address] [place] [address] OFFICE VISIT Date of Service: 06/29/23 MR#: [id number] Acct: [id number] Name: JENA COTA ANN Rep #: [id number] : 1940 Provider: Dr. Jarod Shabazz MD Age/Sex: 83/F [place] [facility] [place] Status: Signed [facility] History of Present Illness Details: This is a 83-year-old lady who presents to the office today for a cardiovascular follow-up visit. She has no previous cardiac history who was consulted for dizziness, fatigue since she had her blood pressure medications changed. She has had a series of tests dating back to 2018. A stress echo in 2018 for fatigue and hypertension demonstrated no evidence of ischemia at a workload of 4 metabolic equivalents. She had complained of dizziness for several months and underwent an echocardiographic evaluation which demonstrated an ejection fraction of 70% in August 2021. Pulmonary artery systolic pressure 40 to 45 mmHg were noted and she did have some aortic sclerosis with no stenosis and moderate to severe mitral calcification with mild mitral regurgitation. She subsequently had a carotid ultrasound performed in January 2022 demonstrating no significant stenosis and a previous blood flow study had demonstrated normal ankle-brachial indices. As part of her dizziness work-up she had a Holter monitor performed in January 2022 demonstrating average heart rate of 72 bpm in sinus rhythm, minimum of 54 bpm and a maximum 110 bpm while in sinus rhythm. She also had a CT scan of her brain which demonstrated chronic involutional changes with no evidence of hemorrhage or ischemia. Her thyroid function test demonstrated a TSH of 3.9 her lipid profile was excellent with an LDL of 68 and an HDL of 86. She was started on metoprolol which was added after the Holter results and that is when her fatigue began. This was discontinued after her last office visit. She underwent a ambulatory blood pressure monitor which demonstrated mildly elevated blood pressure readings. She was placed on amlodipine, and she has tolerated this well. From a cardiac standpoint, the patient is doing well. She is accompanied by her daughter. She has meticulous records of all her blood pressures and they have all been in the normotensive range. She denies any palpitations, chest pain, pressure or heaviness. She denies SOB, Orthopnea, and PND. She does not have have bleeding issues; no blood in urine, stool or nosebleeds. She denies any decrease in energy level, myalgias, or claudication. She does have an occasional pedal edema. She denies sudden weight gain. She does have occasional lightheadedness with positional changes. She denies dizziness, syncopal or near syncopal episodes, and headaches. Intake Vital Signs 06/01/22 14:59 05/31/23 09:02 06/29/23 09:07 Height 5 ft 3 in 5 ft 3 in 5 ft 3 in Weight: 110 lb BMI 19.5 BP 155/84 H Blood Pressure Location Lt brachial Position Sitting Respiration 16 Pulse 80 Pulse Source Monitor Intake Visit Reasons: 1 Y FU Basic Acoustic Analyst Required: No Accompanied by: Daughter Is patient in pain?: No Allergies Sulfa (Sulfonamide Antibiotics) Allergy (Verified 06/29/23 09:12) UNKNOWN Medications alendronate 70 mg tablet 70 mg PO QWEEK OSTEOPOROSIS 03/01/22 [History Confirmed 06/29/23] cholecalciferol (vitamin D3) 50 mcg (2,000 unit) capsule 50 mcg PO DAILY 03/01/22 [History Confirmed 06/29/23] multivitamin 1 tab PO DAILY SUPPLEMENT 03/01/22 [History Confirmed 06/29/23] multivitamin with minerals (Hair,Skin and Nails tablet) 1 tab PO DAILY SUPPLEMENT 03/01/22 [History Confirmed 06/29/23] vitamin B complex 1 tab PO DAILY SUPPLEMENT 03/01/22 [History Confirmed 06/29/23] vitamins A,C,F-korl-ywpeba 4,296 mcg-226 mg-90 mg capsule (PreserVision AREDS) 1 cap PO BID EYE HEALTH 03/01/22 [History Confirmed 06/29/23] wqekukc-qkevldiovfpzy-yay feine 250 mg-250 mg-65 mg tablet (Excedrin Extra Strength) 1 tab PO ONCE PRN pain 03/03/22 [History Confirmed 06/29/23] propylene glycol 0.6 % eye drops (Systane Balance) 1 drp ophthalmic (eye) DAILY PRN dry eye(s) 03/03/22 [History Confirmed 06/29/23] calcium carbonate 500 mg-vitamin D3 10 mcg (400 unit) tablet (Calcium 500 + D) 1 tab PO DAILY SUPPLEMENT 06/01/22 [History Confirmed 06/29/23] amlodipine 2.5 mg tablet 2.5 mg PO DAILY BLOOD PRESSURE 12/29/22 [History Confirmed 06/29/23] levothyroxine 88 mcg tablet (Synthroid) 88 mcg PO DAILY THYROID 12/29/22 [History Confirmed 06/29/23] omega-3 fatty acids 1,000 mg PO DAILY SUPPLEMENT 05/13/23 [History Confirmed 06/29/23] Ejection fraction %: 65 to 70 PFS Medical History Circumscribed scleroderma Essential hypertension Hyperlipidemia Hypertension Hypothyroidism Mitral valve annular calcification Osteoporosis Secondary pulmonary arterial hypertension Stroke/cerebrovascular accident Surgical History History of cataract surgery S/P ERCP S/P laparoscopic cholecystectomy ( 04/2023) Family History Father Cancer Mother Hypertension Heart disease CHF COPD (chronic obstructive pulmonary disease) Brother Cancer Social History Smoking Status: Never smoker alcohol intake: never substance use type: does not use caffeine: Yes Type: coffee ROS Const Const: Positive for fatigue (Improvng since cholecystectomy in April); Negative for weakness, headache(s), frequent falls, difficulty sleeping or excessive sweating Eyes Eyes: Negative for loss of peripheral vision, transient loss of vision, blurry vision, double vision or tunnel vision ENT ENT: Negative for headache(s), dizziness, Nosebleed/epistaxis or balance problems Cardio Chest Pain: No Palpitations: No Edema: Bilateral (Mild bilaterally. ) Muscle aches with walking: None Resp Respiratory: Negative for SOB with activity, SOB at rest, SOB orthopnea SOB lying down, Cough or paroxysmal nocturnal dyspnea GI GI: Negative nausea, vomiting, heartburn or black,tarry stools : Negative for hematuria Musc Musc: Negative for muscle aches/ myalgia, muscle weakness, joint pain or balance problems Skin Skin: Negative non-healing lesions, rash or unusual bruising Neuro Neuro: Positive for lightheadedness (Occasionally with standing up too quickly); Negative for dizziness, near syncope, syncope, frequent falls, headache(s), weakness, blurry vision, double vision or lack of coordination Kurt Hematologic/Lymphatic: Negative for easy bleeding or easy bruising Endo Endo: Positive for fatigue (Improvng since cholecystectomy in April); Negative for excessive sweating or increased thirst/drinking Psych Psych: Negative for anxiety or depression Allergy Allergy/Immunology: Negative for hives and Negative for rash Cardiology Exam Const Appearance: cooperative, healthy appearing, no acute distress, well developed and well groomed Nutritional Appearance: average body habitus and well nourished Orientation: alert, awake and oriented x3 Head Head: normal to inspection, normocephalic and atraumatic Ears: hearing grossly normal bilaterally and external ears normal Nose: external nose normal, nares normal, nasal mucous membranes and turbinates normal, septum normal and no nasal discharge Face and Sinus: face symmetric Mouth: oral mucosae normal, tongue normal, oropharynx normal and moist mucous membranes Teeth and gingiva: dentition normal Throat: posterior oropharynx normal, tonsils normal and uvula midline Eyes General: appearance normal, both eyes and all related structures Eyelids: eyelids normal Conjunctivae: conjunctivae normal Pupils: PERRL, normal by confrontation and accommodation normal EOM: EOM intact bilaterally Neck Neck: normal visual inspection, trachea midline and no JVD JVD: +5 Carotids: normal carotid upstroke and bounding pulses Chest Chest inspection: normal inspection of the chest, symmetric chest movement and normal respiratory effort Auscultation: Bilateral: Clear to Auscultation Cardio Palpation: normal PMI Rate: regular rate Rhythm: regular rhythm Heart sounds: S1 normal, S2 normal and normal, physiologic split S2; Negative rub, gallop or murmur GI GI: normal to inspection, soft, no hepatosplenomegaly and bowel sounds present Neuro General: patient alert, patient awake, patient oriented x3, gait normal, moves all extremities and no focal sensory deficit Skin Skin: no rashes or lesions noted Extremities Pulses: Normal: Right Femoral Pulse, Left Femoral Pulse, Right Dorsalis Pedis Pulse, Left Dorsalis Pedis Pulse, Right Posterior Tibial Pulse, Left Posterior Tibial Pulse, Right Radial Pulse and Left Radial Pulse Lower Extremity Edema: None: Bilateral Musculoskel Musculoskeletal: No joint tenderness Psych Psychological: normal affect Supplemental Info Supplemental Information CAROTID U/S 01/14/2022: Interpretation Summary Mild (<50%) stenosis right extracranial internal carotid. No significant atherosclerotic plaque or stenosis noted in the left internal carotid artery. Flow within the vertebral arteries is antegrade bilaterally. ECHOCARDIOGRAM 09/02/2021: Interpretation Summary The estimated ejection fraction is 70 %. Mild (1+) mitral valve insufficiency. Aortic sclerosis, no stenosis. Trivial aortic valve insufficiency. STRESS ECHOCARDIOGRAM 06/21/2019: EKG Data The baseline ECG displays normal sinus rhythm. During stress, there were no ST or T wave changes noted to suggest ischemia. No clinical angina was noted. Interpretation Summary The estimated ejection fraction is 65 %. Normal, adequate, modified Isreal treadmill echocardiogram. Negative for ischemia by EKG and echocardiographic criteria. No anginal symptoms noted. Rare PVCs noted. Test terminated due to fatigue. Appropriate blood pressure response to exercise. Below average exercise capacity for age. Decreased sensitivity due to poor echo windows requiring Definity agent. Final LVEF is 75%. No complications. The study was technically difficult. Contrast injection was performed. Labs: LDL Cholesterol 82 mg/dL (0-130) HDL Cholesterol 87 mg/dL (40-) Cholesterol 178 mg/dL (200) Triglycerides 44 mg/dL (-199) Diagnostics: No Data to Display Pulmonary: No Data to Display Past Visits: Cardiology Visit 06/29/23 Assessment and Plan Assessment and Plan (1) Essential hypertension: Status: Chronic Plan: Her blood pressure is under excellent control as evidenced by all her blood pressure readings. My recommendation is for her to continue the current medical therapy with no changes she should continue with no changes in her blood pressure medication. (2) Mitral valve annular calcification: Status: Chronic Plan: He does have evidence of mitral calcification. At this time we will plan to keep her on the current medical therapy with no changes. (3) Hyperlipidemia: Status: Chronic Plan: She will continue with risk factor modification. Thank you for allowing me to participate in the care of your patient. Please don't hesitate to call if any issues arise. Plan Details Follow Up: 9 Months (kr) Coding Level of Care Code Off vis,est,level 3 Diagnoses Essential hypertension I10 Mitral valve annular calcification I05.9 Hyperlipidemia E78.5 Coding Level of Care Code Off vis,est,level 3 Diagnoses Essential hypertension I10 Mitral valve annular calcification I05.9 Hyperlipidemia E78.5 06/29/23 0932 <Electronically signed by Jarod Shabazz MD> Date Jarod Shabazz MD Cosigner Signature: Date (if applicable) CC: [employer] Martina Conner HYPNOTHERAPIST Work Phone: Start: 05-31-2023 End: 05-31-2023 Surgery Visit Report Procedure Note: See Note; NOTES: [facility] [address] [place] [address] OFFICE VISIT Date of Service: 05/31/23 MR#: [id number] Acct: [id number] Name: JENA COTA Rep #: [id number] : 1940 Provider: Dr. Nicole vo MD Age/Sex: 83/F Location: [facility] Status: Signed Intake Vital Signs 05/14/23 07:15 05/31/23 09:02 Height 5 ft 3 in 5 ft 3 in Weight: 107 lb 6 oz BMI 19.0 BP 128/58 H Blood Pressure Location Rt brachial Position Sitting Respiration 16 Pulse 86 Pulse Source Monitor Temp 97.3 F L Temp Source Tympanic Pulse Oximetry (%) 99 Oxygen Delivery Method room air Intake Visit Reasons: Cholelithiasis and acute cholecystitis with obstruction Chief Complaint: post op Allergies Sulfa (Sulfonamide Antibiotics) Allergy (Verified 05/31/23 09:07) UNKNOWN Medications alendronate 70 mg tablet 70 mg PO QWEEK OSTEOPOROSIS 03/01/22 [History Confirmed 05/31/23] cholecalciferol (vitamin D3) 50 mcg (2,000 unit) capsule 50 mcg PO DAILY 03/01/22 [History Confirmed 05/31/23] multivitamin 1 tab PO DAILY SUPPLEMENT 03/01/22 [History Confirmed 05/31/23] multivitamin with minerals (Hair,Skin and Nails tablet) 1 tab PO DAILY SUPPLEMENT 03/01/22 [History Confirmed 05/31/23] vitamin B complex 1 tab PO DAILY SUPPLEMENT 03/01/22 [History Confirmed 05/31/23] vitamins A,C,C-ewnl-zbdrug 4,296 mcg-226 mg-90 mg capsule (PreserVision AREDS) 1 cap PO BID EYE HEALTH 03/01/22 [History Confirmed 05/31/23] krhmiae-dkdvrgrllabru-mzl feine 250 mg-250 mg-65 mg tablet (Excedrin Extra Strength) 1 tab PO ONCE PRN pain 03/03/22 [History Confirmed 05/31/23] naproxen sodium 220 mg capsule (Aleve) 220 mg PO BID PRN pain 03/03/22 [History Confirmed 05/31/23] propylene glycol 0.6 % eye drops (Systane Balance) 1 drp ophthalmic (eye) DAILY PRN dry eye(s) 03/03/22 [History Confirmed 05/31/23] calcium carbonate 500 mg-vitamin D3 10 mcg (400 unit) tablet (Calcium 500 + D) 1 tab PO DAILY SUPPLEMENT 06/01/22 [History Confirmed 05/31/23] amlodipine 2.5 mg tablet 2.5 mg PO DAILY BLOOD PRESSURE 12/29/22 [History Confirmed 05/31/23] levothyroxine 88 mcg tablet (Synthroid) 88 mcg PO DAILY THYROID 12/29/22 [History Confirmed 05/31/23] omega-3 fatty acids 1,000 mg PO DAILY SUPPLEMENT 05/13/23 [History Confirmed 05/31/23] Subjective Details: 83-year-old female status post lap nelson as well as ERCP x2 presents for follow-up. Patient is tolerating diet and having bowel function. Patient states her diet is slowly coming back patient's accompanied by her daughter does believe she has lost some weight since hospitalization patient is unsure but did admit that she initially did not have much of an appetite. Objective Details: Abdomen: Soft, nondistended, nontender incisions healing well. No peritoneal signs Coding Level of Care Code Global Post Op Diagnoses S/P laparoscopic cholecystectomy Z90.49 S/P ERCP Z98.890 [facility] Medical History (Updated 05/31/23 @ 11:[address] Nicole Tobias MD) Circumscribed scleroderma Essential hypertension Hyperlipidemia Hypertension Hypothyroidism Mitral valve annular calcification Osteoporosis Secondary pulmonary arterial hypertension Stroke/cerebrovascular accident Surgical History (Updated 05/31/23 @ 11:[address] Nicole Tobias MD) History of cataract surgery S/P ERCP S/P laparoscopic cholecystectomy Family History Father Cancer Mother Hypertension Heart disease CHF COPD (chronic obstructive pulmonary disease) Brother Cancer Social History Smoking Status: Never smoker alcohol intake: never substance use type: does not use caffeine: Yes Type: coffee Assessment and Plan (No Qualifiers) Assessment and Plan (1) S/P laparoscopic cholecystectomy: Status: Acute (2) S/P ERCP: Status: Acute Comment: x2 Plan Patient is doing well tolerating diet. Patient's appetite is slowly coming back. Did encourage patient to try some protein drinks with 30 g of protein to help with the weight loss until the appetite is back to normal. Patient and her daughter had no further question this time. Follow-up as needed. Patient agreeable plan. Nicole Tobias M.D. Pager: [phone] [facility] [address] [place] [address] Office: [phone] 05/31/23 1136 <Electronically signed by Nicole Tobias MD> Date Nicole Tobias MD Cosigner Signature: Date (if applicable) CC: SHILPI Conner [facility] Work Phone: Start: 05-16-2023 End: 05-16-2023 Endoscopic retrograde cholangiopancreatography DI[facility] GRINDER-Saravanan Conner Work Phone: Start: 05-16-2023 Fluoroscopic guidance DIAMOND GRINDERRocío Conner Work Phone: Start: 05-15-2023 Cholangiogram DIAMOND GRINDERRocío Conner Work Phone: Start: 05-15-2023 Fluoroscopic guidance DIAMOND GRINDERRocío Conner Work Phone: Start: 05-15-2023 Total cholecystectomy and exploration of common bile duct SHILPI Conner Work Phone: Start: 05-14-2023 Fluoroscopic guidance [facility]-C Martina Conner Work Phone: Start: 05-14-2023 End: 05-14-2023 Endoscopic retrograde cholangiopancreatography [facility]-C Martina Antoineam Work Phone: Start: 05-13-2023 End: 05-13-2023 Abdomen/Pelvis W IV Cont ONLY Procedure Note: See Note ; NOTES: [facility] [address] [place] [address] Abdomen/Pelvis W IV Cont ONLY MR#: [id number] Acct: [id number] Name: JENA COTA Rep #: [id number] : 1940 F 83 From: Nayan Ojeda MD PCP: SHILPI Sarah Status: REG ER Study: Abdomen/Pelvis W IV Cont ONLY Date of Exam: Exam# [id number] Ordering Dr: Marisel Weiner MD We are attempting to reach an attending provider to discuss findings. An addendum with communication details will be sent when the communication is complete. EXAM: CT ABDOMEN AND PELVIS WITH INTRAVENOUS CONTRAST CLINICAL INDICATION: Abdominal pain x2 days. TECHNIQUE: Helically acquired images were obtained of the abdomen and pelvis with intravenous contrast. This CT exam was performed using one or more of the following dose reduction techniques: automated exposure control, adjustment of the mA and/or kV according to patient size, and/or use of iterative reconstruction technique. CONTRAST: IV 75mL Isovue-370 RADIATION DOSE: CTDIvol = 8.55 mGy, DLP = 311.61 mGy-cm COMPARISON: No relevant prior studies available. FINDINGS: LOWER THORAX: Unremarkable. Lung bases are clear. No cardiomegaly. No significant pericardial effusion. ABDOMEN: LIVER: Abnormal intrahepatic biliary ductal dilatation. GALLBLADDER AND BILE DUCTS: Gallbladder dilatation and 1.7 cm gallstone. Suspicious 3 stacked of gallstones in the distal common bile duct. PANCREAS: Unremarkable. No focal cystic or solid mass. SPLEEN: Unremarkable. Normal size without focal cystic or solid mass. ADRENALS: Unremarkable. No nodules. KIDNEYS AND URETERS: Unremarkable. Normal renal size and position. No hydronephrosis. STOMACH AND BOWEL: Large amount of macerated feces in the cecum. Diverticula in the sigmoid colon without diverticulitis. No stomach or bowel distention. PELVIS: APPENDIX: Normal. BLADDER: Unremarkable. REPRODUCTIVE: Unremarkable as visualized. No mass. ABDOMEN and PELVIS: INTRAPERITONEAL SPACE: Unremarkable. No ascites or other fluid collection. No free air. BONES/JOINTS: Mild degenerative anterolisthesis of L4 on L5. No suspicious lytic or blastic abnormality. SOFT TISSUES: Unremarkable. No discrete abdominal or pelvic wall hernia. VASCULATURE: Unremarkable. Abdominal aorta is non-dilated. LYMPH NODES: Unremarkable. No enlarged lymph nodes. CT/Abdomen/Pelvis W IV Cont ONLY IMPRESSION: 1. Abnormal intrahepatic and extrahepatic ductal dilatation secondary to probable 3 stack of obstructing gallstones in the distal common bile duct. Additionally, gallbladder dilatation containing 1.7 cm gallstone. 2. Sigmoid diverticulosis without diverticulitis. Electronically Signed: Nayan Ojeda MD at 11:12 EDT Reading Location ID and State: [address] [place] [address] , Service support , CC: SHILPI Conner; Dr. Marisel Weiner MD [facility] Youth Program Assistant: Signed Martina Conner CNP Work Phone: Start: 05-13-2023 Computed tomography of abdomen and pelvis with intravenous contrast Start: 05-09-2023 Urine culture Start: 05-09-2023 End: 05-09-2023 Emergency Department Summary Procedure Note: See Note; NOTES: [facility] Records Department [address] [place] [address] Emergency Department Summary 05/09/23 MR#: [id number] Acct: [id number] Name: JENA COTA ANN Rep #: [id number] : 1940 83 From: Hieu Trivedi PCP: SHILPI Sarah Status:DEP ER Location: ED HPI History of Present Illness Chief Complaint: Palpitations Informant: patient Narrative Narrative: Presents the ED presents generalized feeling feeling well since 7 PM last night. There is possible feelings of palpitations. Patient denies recent cough denies headache fevers. States slight chills. Denies chest or abdominal pain. Denies nausea, vomiting, diarrhea. Denies urinary symptoms. 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 This morning her blood pressure 103 over 50s. She just states she is not feeling well therefore came for evaluation has appoint with cardiology next week. She is keeping a log of her blood pressures. Denies any myalgias. Prior similar symptoms: Yes PFSH PFSH Medical History Circumscribed scleroderma Essential hypertension Hyperlipidemia Hypothyroidism Mitral valve annular calcification Osteoporosis Secondary pulmonary arterial hypertension Home Medications alendronate 70 mg tablet 70 mg PO QWEEK 03/01/22 [History Last Taken Unknown] cholecalciferol (vitamin D3) 50 mcg (2,000 unit) capsule 50 mcg PO DAILY 03/01/22 [History Last Taken Unknown] multivitamin 1 tab PO DAILY 03/01/22 [History Last Taken Unknown] multivitamin with minerals (Hair,Skin and Nails tablet) 1 tab PO DAILY 03/01/22 [History Last Taken Unknown] omega-3 fatty acids-fish oil 340 mg-1,000 mg capsule (Fish Oil) 1 cap PO DAILY 03/01/22 [History Last Taken Unknown] vitamin B complex 1 tab PO DAILY 03/01/22 [History Last Taken Unknown] vitamins A,C,O-dzjo-hagpgh 4,296 mcg-226 mg-90 mg capsule (PreserVision AREDS) 1 cap PO BID 03/01/22 [History Last Taken Unknown] prxaztf-xpdoiijzmtxec-wfq feine 250 mg-250 mg-65 mg tablet (Excedrin Extra Strength) 1 tab PO ONCE PRN 03/03/22 [History Last Taken Unknown] naproxen sodium 220 mg capsule (Aleve) 220 mg PO BID PRN 03/03/22 [History Last Taken Unknown] propylene glycol 0.6 % eye drops (Systane Balance) 1 drp ophthalmic (eye) DAILY PRN 03/03/22 [History Last Taken Unknown] calcium carbonate 500 mg-vitamin D3 10 mcg (400 unit) tablet (Calcium 500 + D) 1 tab PO DAILY 06/01/22 [History Last Taken Unknown] amlodipine 2.5 mg tablet 2.5 mg PO DAILY 12/29/22 [History Last Taken Unknown] levothyroxine 88 mcg tablet (Synthroid) 88 mcg PO DAILY 12/29/22 [History Last Taken Unknown] Allergy/AdvReac Type Severity Reaction Status Date / Time Sulfa (Sulfonamide Allergy UNKNOWN Verified 05/09/23 07:07 Antibiotics) Family History Father Cancer Mother Hypertension Heart disease CHF COPD (chronic obstructive pulmonary disease) Brother Cancer Surgical History History of cataract surgery Social History Smoking Status: Never smoker alcohol intake: never substance use type: does not use caffeine: Yes Type: coffee ROS ROS ED Constitutional Constitutional ED: Denies chills, fever(s) or sweats Eyes Eyes: Denies change in vision ENT ENT ED: Denies dysphagia or sore throat Cardiovascular Cardiovascular: Reports palpitations; Denies chest pain, leg edema or racing heartbeat Respiratory/Chest Respiratory/Chest: Denies cough, dyspnea or dyspnea on exertion Gastrointestinal Gastrointestinal: Denies abdominal pain, diarrhea, nausea or vomiting Genitourinary Genitourinary ED: Denies dysuria, hematuria or urinary frequency Musculoskeletal Musculoskeletal: Denies back pain, extremity pain, myalgias or neck pain Integumentary Denies rash or wounds Neurologic Neurologic: Denies headache(s), paresthesias or weakness EXAM Physical Exam Const Vital Signs: 05/09/23 07:08 05/09/23 07:18 05/09/23 09:47 Temperature 97.3 F L Temperature Source Temporal Pulse Rate 95 93 81 Respiratory Rate 14 20 H 20 H Blood Pressure 134/68 H 141/69 H 139/74 H Blood Pressure Mean 90 93 95 Pulse Ox 100 99 Oxygen Delivery Method Room Air Room Air Room Air 05/09/23 09:47 Temperature Temperature Source Pulse Rate 81 Respiratory Rate 20 H Blood Pressure 139/74 H Blood Pressure Mean Pulse Ox 99 Oxygen Delivery Method Positive well nourished and well developed General Appearance ED: well developed and NAD HEENT Reports moist mucous membranes normocephalic and atraumatic Eyes PERRL, EOMs intact bilaterally and conjunctivae normal General Eye ED: Yes normal appearance of both eyes Neck no lymphadenopathy and supple General: Negative for tenderness Chest Wall Chest: Negative for tenderness Resp normal respiratory effort and normal air movement Effort and Inspection: symmetric chest movement; Negative for respiratory distress Cardio regular rate, regular rhythm and no murmurs Peripheral Pulses: pulses 2+ throughout GI normal to inspection, nondistended, normoactive bowel sounds and non-tender Palpation: Negative for guarding or rebound tenderness present Back/Spine no CVA tenderness and no thoracic nor lumbar tenderness Extremity normal to inspection General Extremety ED: Negative for edema or tenderness General Extremity: Negative for edema Neuro oriented x3 and no sensory deficits noted Sensorium / Orientation: awake and alert Skin no rashes or lesions noted and no wounds MDM MDM MDM Narrative Medical decision making narrative: Interventions / MDM: Differential diagnosis: Viral syndrome Diagnosis considered but do not suspect: My EKG interpretation: Sinus rhythm 94, no ST changes isolated T wave version aVL, nonspecific. Imaging independently reviewed and interpreted by myself: N/A External documents reviewed: N/A Test considered but not ordered:N/A ED course: Patient blood pressure normotensive on arrival. Nonspecific complaints possible palpitations. None currently. EKG sinus rhythm with nonspecific findings. We will check basic labs and urine. She declines COVID and influenza screening at this time. 0935: Labs since the state will slightly sodium 132 that is low. She was given normal saline. Electrolytes are all normal all otherwise. Urine had slight leukocytes and rare bacteria. Urine c ulture sent. She does not have any urine symptoms. Therefore would not treat unless culture is positive. Discussed likely early viral syndrome. Blood pressure remained stable. She is keeping a log for her cardiology team. She will follow-up with her doctors as an outpatient with strict return precautions. All questions were answered. Re-evaluation: stable Disposition discussed with patient/family/significan t other: Patient Case discussed with consulting clinician: N/A This note was generated with ezeep dictation software. It may contain incorrect words, spelling, and punctuation that were not noted in checking the note before signing. Lab Data Attestation: I reviewed the patient's lab results. Labs: Laboratory Results - last 24 hr 05/09/23 05/09/23 07:30 08:45 WBC 11.8 H RBC 3.98 L Hgb 12.9 Hct 37.2 MCV 93.5 MCH 32.4 H MCHC 34.7 RDW Std Deviation 45.4 H RDW Coeff of Rhina 13.2 Plt Count 308 MPV 9.8 Immature Gran % (Auto) 0.300 Neut % (Auto) 86.8 H Lymph % (Auto) 6.8 L Larue % (Auto) 5.8 Eos % (Auto) 0.0 Baso % (Auto) 0.3 Absolute Neuts (auto) 10.3 H Absolute Lymphs (auto) 0.80 L Nucleated RBC % 0 Sodium 132 L Potassium 4.4 Chloride 99 Carbon Dioxide 28.0 Anion Gap 5 BUN 16 Creatinine 0.79 Estim Creat Clear Calc 34.02 Est GFR (MDRD) Af Amer 89 Est GFR (MDRD) Non-Af 74 BUN/Creatinine Ratio 20.3 H Glucose 123 H Calcium 8.6 Urine Color Jailyn Urine Clarity Sl. Cloudy Urine pH 6.5 Ur Specific [place] 1.010 Urine Protein 15 H Urine Glucose (UA) Normal Urine Ketones Negative Urine Occult Blood Negative Urine Nitrite Negative Urine Bilirubin 1 H Urine Urobilinogen 1 H Ur Leukocyte Esterase 100 H Urine RBC 0 SEEN Urine WBC 0-5 SEEN Ur Squamous Epith Cells 0-5 SEEN Urine Bacteria RARE Urine Mucus 0 SEEN Discharge Plan Triage Chief Complaint: Palpitations ED Provider: Hieu Luis Dx/Rx/DC Orders Clinical Impression: Acute viral syndrome, Acute hyponatremia Instructions: ED Dehydration (Adult), ED Hyponatremia Prescriptions: No Action cholecalciferol (vitamin D3) 50 mcg (2,000 unit) capsule 50 mcg PO DAILY alendronate 70 mg tablet 70 mg PO QWEEK Fish Oil 340-1,000 mg capsule 1 cap PO DAILY Hair,Skin and Nails Tablet 1 tab PO DAILY multivitamin Tablet 1 tab PO DAILY PreserVision AREDS 14,320-226-200 vlhg-ow-pzwg capsule 1 cap PO BID vitamin B complex Tablet 1 tab PO DAILY levothyroxine [Synthroid] 88 mcg tablet 88 mcg PO DAILY Systane Balance 0.6 % drops 1 drp ophthalmic (eye) DAILY PRN Excedrin Extra Strength 250-250-65 mg tablet 1 tab PO ONCE PRN naproxen sodium [Aleve] 220 mg capsule 220 mg PO BID PRN calcium carbonate-vitamin D3 [Calcium 500 + D] 500 mg-10 mcg (400 unit) tablet 1 tab PO DAILY amlodipine 2.5 mg tablet 2.5 mg PO DAILY Primary Care Provider: Martina Conner Referrals: Martina Conner, [facility]-C [Primary Care Provider] - 3-5 Days if not improving Activity Restrictions/Additional Instructions: Laboratory studies with a sodium 132 status post IV fluids. Normal kidney function normal hemoglobin of 12.9. Urine sent for culture you have no urine symptoms if positive you will be contacted for treatment. Your blood pressure has been stable in the ED. EKG no acute findings. Follow-up with your doctors as an outpatient. Return for any new or worsening symptoms that are concerning. Disposition Disposition: Home, Self Care Discharge Date/Time: 05/09/23 09:55 What to do if you have Problems For any increased pain, shortness of breath, bleeding, nausea or vomiting, chest pain, or any unexpected problems, contact your Primary Care Provider. Call [facility] ([phone]) or report to the closest Emergency Room. Call 911 if necessary. 05/09/23 1453 <Electronically signed by Hieu Trivedi> Cosigner Signature (if applicable): CC: SHILPI Conner Signed Martina Conner [facility] Work Phone: Start: 05-09-2023 End: 05-10-2023 12 Lead EKG Procedure Note: See Note; NOTES: [facility] [address] [place] [id number] 12 Lead EKG 05/09/23 0715 MR#: [id number] Acct: [id number] Name: JENA COTA Rep #: [id number] : 1940 83 From: Jarod Shabazz MD Attending Dr: Status: DEP ER Ordering Dr: Hieu Luis DO Date: 05/09/23 Location: ED Sex: F C Admitted: Test Reason : PALP Blood Pressure : / mmHG Vent. Rate : 094 BPM Atrial Rate : 094 BPM P-R Int : 144 ms QRS Dur : 090 ms QT Int : 372 ms P-R-T Axes : 085 064 078 degrees QTc Int : 465 ms Normal sinus rhythm Nonspecific ST abnormality Abnormal ECG Confirmed by JAROD SHABAZZ MD ([id number]), publications editor DELTA MCCOY ([id number]) on 05/10/2023 2:22:36 PM Referred By: TL Confirmed By:JAROD SHABAZZ MD 05/10/23 1422 Date Jarod Shabazz MD CC: [facility]-C Martina Conner; Dr. Hieu Luis DO Signed Martina Conner [facility] Work Phone: Start: 05-02-2023 End: 05-09-2023 Dexa Bone Density Study Procedure Note: See Note; NOTES: [facility] [address] [facility] [place] [address] Dexa Bone Density Study MR#: [id number] Acct: [id number] Name: JENA COTA Rep #: [id number] : 1940 F 82 From: Per barahona MD PCP: SHILPI Sarah Status: DEP CLI Study: Dexa Bone Density Study Date of Exam: 05/02/23 Exam# [id number] Ordering Dr: Martina Conner STUDY: DUAL ENERGY X-RAY ABSORPTIOMETRY / DXA REASON FOR EXAM: Female, 83 years old. Z780 TECHNIQUE: Bone Mineral Density (BMD) measurements of lumbar spine and bilateral hips were obtained. COMPARISON: Comparison is made with prior study April 27, 2021. FINDINGS: Lumbar Spine (L1-L4): g/cm2 (0.947) / T-score (-0.9) / Z-score (2.0) Findings are suggestive of normal bone density with a low fracture risk. Left Femur Total: g/cm2 (0.535) / T-score (-3.3) / Z-score (-1.0) Left Femoral Neck: g/cm2 (0.478) / T-score (-3.3) / Z-score (-0.8) Right Femur Total: g/cm2 (0.480) / T-score (-3.8) / Z-score (-1.5) Right Femoral Neck: g/cm2 (0.410) / T-score (-4.0) / Z-score (-1.4) The T-Scores on the most recent prior examination were: Lumbar Spine (L1-L4): There has been improvement of bone density since the previous examination. Left Femur Total: which represents an improvement of 3.5%. Right Femur Total: which represents a worsening of 2.3%. BD/Dexa Bone Density Study IMPRESSION: The patient is considered osteoporotic as outlined below according to World Diallo Organization (WHO) criteria with a high fracture risk. There has been improvement of bone density since the previous examination. Reference Information: The T-score is the number of standard deviations above or below the standard which is normal for young adults at their peak bone mineral density. The World Health Organization (WHO) interprets the T-scores as follows: Above -1 Normal bone density Between -1 and -2.5 Osteopenia Equal to / or below -2.5 Osteoporosis As a practical clinical guideline, osteopenia may be graded as follows: Mild -1 through -1.5 Moderate -1.6 through -2.0 Severe -2.1 through -2.4 The Z-score is the number of standard deviations above or below age-matched controls. A Z-score of less than -1.5 would be considered abnormal. References: 1. NIH Osteoporosis and Related Bone Diseases www osteo.org 2. International Society for Clinical Densitometry www iscd.org 3. National Osteoporosis Foundation www nof.org Electronically Signed: Per Fyre MD at 11:16 EDT , CC: Martina Conner NP; DELICIAC Martina Conner Child And Youth Program Assistant: Signed Martina Conner [facility] Work Phone: Start: 05-02-2023 Dual energy X-ray absorptiometry Start: 05-02-2023 Screening mammography Start: 05-02-2023 End: 05-02-2023 SCRN MAMM (CAD)W/LOAN BILAT Procedure Note: See Note; NOTES: [facility] Services [address] [place] [address] SCRN MAMM (CAD)W/LOAN BILAT MR#: [id number] Acct: [id number] Name: JENA COTA Rep #: [id number] : 1940 F 82 From: Alex Matthews MD PCP: SHILPI Sarah Status: REG CLI Study: SCRN MAMM (CAD)W/LOAN BILAT Date of Exam: 04/15 06/07 Exam# [id number] Ordering Dr: Martina Conner MAMMOGRAPHY - BILATERAL SCREENING 3-D TOMOSYNTHESIS REASON FOR EXAM: Female, 82 years old. Routine screening PERTINENT HISTORY: No significant family history. TECHNIQUE: 2-D mammograms and 3-D Tomosynthesis of the breast (s) were performed. CAD was performed. COMPARISON: 04/28/2022 FINDINGS: The breast composition is heterogeneously dense that can obscure small breast masses. Scattered benign vascular calcifications are seen. No dense spiculated masses or suspicious microcalcifications are identified. No architectural distortion is identified. There is no skin thickening or retraction. There has been no significant change since the prior study. BI/SCRN MAMM (CAD)W/LOAN BILAT IMPRESSION: No mammographic signs of malignancy. Routine yearly mammograms recommended. ASSESSMENT CATEGORY: BIRADS Category 2: Benign. A letter regarding these results will be sent to the patient by the facility within 30 days. FOLLOW UP RECOMMENDATION: Yearly follow up mammogram recommended. (A) Approximately 10% of breast cancers are not detected by mammography. A normal mammogram should not delay biopsy of a clinically suspicious abnormality. Electronically Signed: Abel Matthews MD at 11:24 EDT , CC: Martina Conner [facility]; [facility]-C Martina Conner Child [facility] Youth Program Assistant: Signed Martina Conner CNP Work Phone: Start: 12-29-2022 End: 12-29-2022 Cardiology Visit Report Procedure Note: See Note; NOTES: [facility] [address] [place] [address] OFFICE VISIT Date of Service: 12/29/22 MR#: [id number] Acct: [id number] Name: JENA COTA Rep #: [id number] : 1940 Provider: SHILPI cheema Age/Sex: 82/F Location[place] [facility] [place] Status: Signed HPI HPI History of Present Illness Details: This is a 82-year-old lady who presents to the office today for a cardiovascular follow-up visit. She has no previous cardiac history who was consulted for dizziness, fatigue since she had her blood pressure medications changed. She has had a series of tests dating back to 2018. A stress echo in 2018 for fatigue and hypertension demonstrated no evidence of ischemia at a workload of 4 metabolic equivalents. She had complained of dizziness for several months and underwent an echocardiographic evaluation which demonstrated an ejection fraction of 70% in August 2021. Pulmonary artery systolic pressure 40 to 45 mmHg were noted and she did have some aortic sclerosis with no stenosis and moderate to severe mitral calcification with mild mitral regurgitation. She subsequently had a carotid ultrasound performed in January 2022 demonstrating no significant stenosis and a previous blood flow study had demonstrated normal ankle-brachial indices. As part of her dizziness work-up she had a Holter monitor performed in January 2022 demonstrating average heart rate of 72 bpm in sinus rhythm, minimum of 54 bpm and a maximum 110 bpm while in sinus rhythm. She also had a CT scan of her brain which demonstrated chronic involutional changes with no evidence of hemorrhage or ischemia. Her thyroid function test demonstrated a TSH of 3.9 her lipid profile was excellent with an LDL of 68 and an HDL of 86. She was started on metoprolol which was added after the Holter results and that is when her fatigue began. This was discontinued after her last office visit. She underwent a ambulatory blood pressure monitor which demonstrated mildly elevated blood pressure readings. She was placed on amlodipine, and she has tolerated this well. From a cardiac standpoint, the patient is doing well. She is accompanied by her daughter. She denies any palpitations, chest pain, pressure or heaviness. She denies SOB, Orthopnea, and PND. She does not have have bleeding issues; no blood in urine, stool or nosebleeds. She denies any decrease in energy level, myalgias, or claudication. She does have an occasional pedal edema. She denies sudden weight gain. She does have occasional lightheadedness with positional changes. She denies dizziness, syncopal or near syncopal episodes, and headaches. Intake Vital Signs 12/29/22 14:43 12/29/22 14:45 Height 5 ft 3 in 5 ft 3 in Weight: 120 lb BMI 21.2 BP 155/78 H Blood Pressure Location Lt brachial Position Sitting Respiration 16 Pulse 90 Pulse Source Auscultation Intake Visit Reasons: 6 M FU Basic Acoustic Analyst Required: No Accompanied by: Daughter Is patient in pain?: No Allergies Sulfa (Sulfonamide Antibiotics) Allergy (Verified 12/29/22 14:53) UNKNOWN Medications alendronate 70 mg tablet 70 mg PO QWEEK 03/01/22 [History Confirmed 12/29/22] cholecalciferol (vitamin D3) 50 mcg (2,000 unit) capsule 50 mcg PO DAILY 03/01/22 [History Confirmed 12/29/22] multivitamin 1 tab PO DAILY 03/01/22 [History Confirmed 12/29/22] multivitamin with minerals (Hair,Skin and Nails tablet) 1 tab PO DAILY 03/01/22 [History Confirmed 12/29/22] omega-3 fatty acids-fish oil 340 mg-1,000 mg capsule (Fish Oil) 1 cap PO DAILY 03/01/22 [History Confirmed 12/29/22] vitamin B complex 1 tab PO DAILY 03/01/22 [History Confirmed 12/29/22] vitamins A,C,V-dvsd-uaqkcg 4,296 mcg-226 mg-90 mg capsule (PreserVision AREDS) 1 cap PO BID 03/01/22 [History Confirmed 12/29/22] cszopjo-qbnsyteknwahu-wvg feine 250 mg-250 mg-65 mg tablet (Excedrin Extra Strength) 1 tab PO ONCE PRN 03/03/22 [History Confirmed 12/29/22] naproxen sodium 220 mg capsule (Aleve) 220 mg PO BID PRN 03/03/22 [History Confirmed 12/29/22] propylene glycol 0.6 % eye drops (Systane Balance) 1 drp ophthalmic (eye) DAILY PRN 03/03/22 [History Confirmed 12/29/22] calcium carbonate 500 mg-vitamin D3 10 mcg (400 unit) tablet (Calcium 500 + D) 1 tab PO DAILY 06/01/22 [History Confirmed 12/29/22] amlodipine 2.5 mg tablet 2.5 mg PO DAILY 12/29/22 [History Confirmed 12/29/22] levothyroxine 88 mcg tablet (Synthroid) 88 mcg PO DAILY 12/29/22 [History Confirmed 12/29/22] Ejection fraction %: 65 to 70 PFSH Medical History Circumscribed scleroderma Essential hypertension Hyperlipidemia Hypothyroidism Mitral valve annular calcification Osteoporosis Secondary pulmonary arterial hypertension Surgical History History of cataract surgery Family History Father Cancer Mother Hypertension Heart disease CHF COPD (chronic obstructive pulmonary disease) Brother Cancer Social History Smoking Status: Never smoker alcohol intake: never substance use type: does not use caffeine: Yes Type: coffee ROS Const Const: Negative for fatigue, weakness, headache(s), frequent falls, difficulty sleeping or excessive sweating Eyes Eyes: Negative for loss of peripheral vision, transient loss of vision, blurry vision, double vision or tunnel vision ENT ENT: Positive for balance problems; Negative for headache(s), dizziness or Nosebleed/epistaxis Cardio Chest Pain: No Palpitations: No Edema: Bilateral Muscle aches with walking: None Resp Respiratory: Negative for SOB with activity, SOB at rest, SOB orthopnea SOB lying down, Cough or paroxysmal nocturnal dyspnea GI GI: Negative nausea, vomiting, heartburn or black,tarry stools : Negative for hematuria Musc Musc: Positive for balance problems; Negative for muscle aches/ myalgia, muscle weakness or joint pain Skin Skin: Negative non-healing lesions, rash or unusual bruising Neuro Neuro: Positive for lightheadedness (occasional with positional changes); Negative for dizziness, near syncope, syncope, frequent falls, headache(s), weakness, blurry vision, double vision or lack of coordination Kurt Hematologic/Lymphatic: Negative for easy bleeding or easy bruising Endo Endo: Negative for fatigue, excessive sweating or increased thirst/drinking Psych Psych: Negative for anxiety or depression Allergy Allergy/Immunology: Negative for hives and Negative for rash Cardiology Exam Const Appearance: cooperative, healthy appearing, no acute distress, well developed and well groomed Nutritional Appearance: average body habitus, well nourished and thin Orientation: alert, awake and oriented x3 Head Head: normal to inspection, normocephalic and atraumatic Ears: hearing grossly normal bilaterally and external ears normal Nose: external nose normal and nares normal Face and Sinus: face symmetric Eyes General: appearance normal, both eyes and all related structures Eyelids: eyelids normal Conjunctivae: conjunctivae normal Pupils: PERRL, normal by confrontation and accommodation normal EOM: EOM intact bilaterally Neck Neck: normal visual inspection, trachea midline and no JVD JVD: +5 Carotids: normal carotid upstroke and bounding pulses Chest Chest inspection: normal inspection of the chest, symmetric chest movement and normal respiratory effort Auscultation: Bilateral: Clear to Auscultation Cardio Palpation: normal PMI Rate: regular rate Rhythm: regular rhythm Heart sounds: S1 normal, S2 normal and normal, physiologic split S2; Negative rub, gallop or murmur GI GI: normal to inspection and soft Neuro General: patient alert, patient awake, patient oriented x3, gait normal, moves all extremities and no focal sensory deficit Skin Skin: no rashes or lesions noted Extremities Pulses: Normal: Right Posterior Tibial Pulse, Left Posterior Tibial Pulse, Right Radial Pulse and Left Radial Pulse Lower Extremity Edema: None: Bilateral Musculoskel Musculoskeletal: No joint tenderness Psych Psychological: normal affect Supplemental Info Supplemental Information CAROTID U/S 01/14/2022 Interpretation Summary Mild (<50%) stenosis right extracranial internal carotid. No significant atherosclerotic plaque or stenosis noted in the left internal carotid artery. Flow within the vertebral arteries is antegrade bilaterally. ECHOCARDIOGRAM 09/02/2021 Interpretation Summary The estimated ejection fraction is 70 %. Mild (1+) mitral valve insufficiency. Aortic sclerosis, no stenosis. Trivial aortic valve insufficiency. STRESS ECHOCARDIOGRAM 06/21/2019 EKG Data The baseline ECG displays normal sinus rhythm. During stress, there were no ST or T wave changes noted to suggest ischemia. No clinical angina was noted. Interpretation Summary The estimated ejection fraction is 65 %. Normal, adequate, modified Isreal treadmill echocardiogram. Negative for ischemia by EKG and echocardiographic criteria. No anginal symptoms noted. Rare PVCs noted. Test terminated due to fatigue. Appropriate blood pressure response to exercise. Below average exercise capacity for age. Decreased sensitivity due to poor echo windows requiring Definity agent. Final LVEF is 75%. No complications. The study was technically difficult. Contrast injection was performed. Laboratory Tests 08/16/21 07:48 Triglycerides 44 Cholesterol 163 LDL Cholesterol 68 HDL Cholesterol 86 Labs: LDL Cholesterol 92 mg/dL (0-130) HDL Cholesterol 96 mg/dL (40-) Triglycerides 53 mg/dL (-199) INR 1.0 Diagnostics: Electrocardiogram Echocardiogram Stress Echocardiogram Carotid Duplex Pulmonary: No Data to Display Past Visits: No Data to Display Assessment and Plan Assessment and Plan (1) Essential hypertension: Status: Chronic Plan: Patient has a history of hypertension. Her blood pressure is elevated in the office today. Her blood pressure readings from home are well controlled. At this time, she will continue with amlodipine 2.5mg daily, along with monitoring her blood pressures at home. She will notify our office of any persistently high or low blood pressure readings. (2) Hyperlipidemia: Status: Chronic Plan: Patient has a history of hyperlipidemia. Her PCP monitors this. Her most recent lipid panel from 05/02/2022: cholesterol 199, HDL 96, LDL 92, triglycerides 53. She will continue with aggressive risk factor and lifestyle modifications. Plan Details Additional Comments: Patient will follow up in 6 months, or sooner if needed. Thank you for allowing me to participate in the care of your patient. Please don't hesitate to call if any issues arise. This note was generated using a voice recognition system and there may be incorrect words, spelling, or punctuation that were not noted when reviewing the office note prior to saving. Portions of this documentation were copied and pasted from previous office visit notes to provide a cohesive continuity of the history. The note has been reviewed, edited, and updated, as necessary. Follow Up: Keep as is (RETAIL BUSINESS DEVELOPMENT MANAGER) Coding Level of Care Code Off vis,est,level 3 Diagnoses Essential hypertension I10 Hyperlipidemia E78.5 Coding Level of Care Code Off vis,est,level 3 Diagnoses Essential hypertension I10 Hyperlipidemia E78.5 12/29/22 1513 <Electronically signed by Daniella Gerber DIAMOND GRINDER DIAMOND GRINDER-C> Date Daniella Gerber DIAMOND GRINDER DIAMOND GRINDER-C Cosigner Signature: Date (if applicable) CC: DIAMOND GRINDER-C Martina Conner HYPNOTHERAPIST Work Phone: Start: 10-16-2022 History of cholecystectomy S/P laparoscopic cholecystectomy DIAMOND GRINDER-C Martina Conner Work Phone: Start: 06-02-2022 End: 06-02-2022 PT D/C Summary (1) Procedure Note: See Note; NOTES: [facility] [address] [place] [address]. [address] [place] [address] / REHABILITATION SERVICES DISCHARGE SUMMARY MR#: [id number] Acct: [id number] Name: JENA COTA Rep #: [id number] : 1940 82 From: Beti Morales PT, Cert. MDT Referring Dr.: KRISTINE Smith Status: REG RCR Insurance: MEDICARE PART A B ANTHEM It has been my pleasure to treat JENA COTA referred by Dr. Su Smith DPM, with the diagnosis of UNSTABLE GAIT for a total of 10 visit(s). Discharge Date: Please see the following information for a summary of their discharge status. Subjective: PATIENT REPORTS SHE IS A LOT MORE CONFIDENT WITH HER BALANCE NOW. STATES IT IS NICE TO SEE PROGRESS AND FEELS OK STOPPING PT. % Improvement: 90 Objective/Function: PATIENT WAS SEEN TODAY FOR RE-ASSESSMENT OF PROGRESS TOWARD THE SET PT GOALS AND THE NEED FOR FURTHER PHYSICAL THERAPY VS READINESS FOR DISCHARGE. UPON EXAM TODAY ALL GOALS HAVE BEEN MET. PATIENT EVEN DEMO'S INDEP GAIT UP AND DOWN STEPS RECIP WITHOUT HR BUT MORE CONFIDENT GOING UP THAN DOWN. SHE IS APPROPRIATE FOR DISCHARGE AND AGREEABLE TO DISCHARGE. Goal 1:: PATIENT WILL COMPLETE TUG IN < 10 SECS TO DEMONSTRATE IMPROVED GAIT STABILITY Goal Progress: Goal Met Goal 2:: PATIENT WILL COMPLETE 12 STANDS IN 30 SECS TO DEMONSTRATE IMPROVED FUNCTIONAL STRENGTH Goal Progress: Goal Met Goal 3:: PATIENT WILL DEMO ABILITY TO ASCEND AND DESCEND STEPS RECIPRICALLY WITHOUT UE ASSIST. Goal Progress: Goal Met Goal 4:: PATIENT WILL REPORT DECREASED FEAR OF FALLING AND DEMO IMPROVED STRIDE LENGTH WITH GAIT FOR BETTER GAIT EFFICIENCY. Goal Progress: Goal Met Goal 5:: PATIENT WILL BE INDEP WITH A HEP FOR CONTINUED IMPROVEMENT ONCE FORMAL PHYSICAL THERAPY CONCLUDES. Goal Progress: Goal Met Plan: D/C. PATIENT AGREEABLE. If there are questions or concerns regarding this patient's physical therapy, please feel free to call me at [phone]. Thank you for the referral of this patient. Sincerely, Beti Morales, PT, Cert MDT Balance/Gait/Functional tests - Balance/Special Test Scores Lower Extremity Functional Score: 61 TUG Test Time Seconds: 9.36 Tug Test: <10 sec.=free mobile 30 Second Chair Rise Test Seconds: 13 <Electronically signed by Beti Morales PT, Cert. MDT> 06/02/22 0927 CC: KRISTINE Smith; SHILPI Conner ADÁN Signed Martina Conner [facility] Work Phone: Start: 06-01-2022 End: 06-02-2022 Cardiology Visit Report Procedure Note: See Note; NOTES: [facility] [address] [place] [address]. [address] [place] [address] OFFICE VISIT Date of Service: 06/01/22 MR#: [id number] Acct: [id number] Name: JENA COTA ANN Rep #: [id number] : 1940 Provider: SHILPI cheema Age/Sex: 82/F Location[place] [facility] [place] Status: Signed [facility] History of Present Illness Details: This is a 82-year-old lady who presents to the office today for a cardiovascular follow-up visit. She has no previous cardiac history who was consulted for dizziness, fatigue since she had her blood pressure medications changed. She has had a series of tests dating back to 2019. A stress echo in 2018 for fatigue and hypertension demonstrated no evidence of ischemia at a workload of 4 metabolic equivalents. She had complained of dizziness for several months and underwent an echocardiographic evaluation which demonstrated an ejection fraction of 70% in August 2021. Pulmonary artery systolic pressure 40 to 45 mmHg were noted and she did have some aortic sclerosis with no stenosis and moderate to severe mitral calcification with mild mitral regurgitation. She subsequently had a carotid ultrasound performed in January 2022 demonstrating no significant stenosis and a previous blood flow study had demonstrated normal ankle-brachial indices. As part of her dizziness work-up she had a Holter monitor performed in January 2022 demonstrating average heart rate of 72 bpm in sinus rhythm, minimum of 54 bpm and a maximum 110 bpm while in sinus rhythm. She also had a CT scan of her brain which demonstrated chronic involutional changes with no evidence of hemorrhage or ischemia. Her thyroid function test demonstrated a TSH of 3.9 her lipid profile was excellent with an LDL of 68 and an HDL of 86. She was started on metoprolol which was added after the Holter results and that is when her fatigue began. This was discontinued after her last office visit. She underwent a ambulatory blood pressure monitor which demonstrated mildly elevated blood pressure readings. She was placed on amlodipine 5mg daily, and she has tolerated this well. From a cardiac standpoint, the patient is doing well. She denies any palpitations, chest pain, pressure or heaviness. She denies SOB, Orthopnea, and PND. She does not have bleeding issues; no b lood in urine, stool or nosebleeds. She does have complaints of fatigue-this has been ongoing. She states she has been participating in PT and exercise-which she states may be the reason for her fatigue. She denies myalgias, or claudication. She does not have edema, or sudden weight gain. She denies dizziness, lightheadedness, syncopal or near syncopal episodes, and headaches. Intake Vital Signs 03/02/22 10:47 06/01/22 14:59 06/01/22 14:59 Height 5 ft 3 in 5 ft 3 in 5 ft 3 in Weight: 116 lb BMI 20.5 BP 117/63 Blood Pressure Location Lt brachial Position Sitting Respiration 16 Pulse 99 Pulse Source Monitor Intake Visit Reasons: 3 M FU Basic Acoustic Analyst Required: No Accompanied by: Daughter Is patient in pain?: No Allergies Sulfa (Sulfonamide Antibiotics) Allergy (Verified 06/01/22 15:31) UNKNOWN Medications alendronate 70 mg tablet 70 mg PO QWEEK 03/01/22 [History Confirmed 06/01/22] cholecalciferol (vitamin D3) 50 mcg (2,000 unit) capsule 50 mcg PO DAILY 03/01/22 [History Confirmed 06/01/22] multivitamin 1 tab PO DAILY 03/01/22 [History Confirmed 06/01/22] multivitamin with minerals (Hair,Skin and Nails tablet) 1 tab PO DAILY 03/01/22 [History Confirmed 06/01/22] omega-3 fatty acids-fish oil 340 mg-1,000 mg capsule (Fish Oil) 1 cap PO DAILY 03/01/22 [History Confirmed 06/01/22] vitamin B complex 1 tab PO DAILY 03/01/22 [History Confirmed 06/01/22] vitamins A,C,Q-diae-hwrekm 14,320 unit-226 mg-200 unit capsule (PreserVision AREDS) 1 cap PO BID 03/01/22 [History Confirmed 06/01/22] ecbsvom-oqguzomicvqev-egj feine 250 mg-250 mg-65 mg tablet (Excedrin Extra Strength) 1 tab PO ONCE PRN 03/03/22 [History Confirmed 06/01/22] naproxen sodium 220 mg capsule (Aleve) 220 mg PO BID PRN 03/03/22 [History Confirmed 06/01/22] propylene glycol 0.6 % eye drops (Systane Balance) 1 drp ophthalmic (eye) DAILY PRN 03/03/22 [History Confirmed 06/01/22] amlodipine 5 mg tablet 5 mg PO DAILY #90 tabs 03/07/22 [Rx Confirmed 06/01/22] calcium carbonate 500 mg-vitamin D3 10 mcg (400 unit) tablet (Calcium 500 + D) 1 tab PO DAILY 06/01/22 [History Confirmed 06/01/22] levothyroxine 88 mcg tablet (Synthroid) 88 mcg PO 6XW 06/01/22 [History Confirmed 06/01/22] Ejection fraction %: 65 to 70 PFSH Medical History Circumscribed scleroderma Essential hypertension Hyperlipidemia Hypothyroidism Mitral valve annular calcification Osteoporosis Secondary pulmonary arterial hypertension Surgical History History of cataract surgery Family History Father Cancer Mother Hypertension Heart disease CHF COPD (chronic obstructive pulmonary disease) Brother Cancer Social History Smoking Status: Never smoker alcohol intake: never substance use type: does not use caffeine: Yes Type: coffee ROS Const Const: Positive for fatigue; Negative for weakness, headache(s), frequent falls, difficulty sleeping or excessive sweating Eyes Eyes: Negative for loss of peripheral vision, transient loss of vision, blurry vision, double vision or tunnel vision ENT ENT: Negative for headache(s), dizziness, Nosebleed/epistaxis or balance problems Cardio Chest Pain: No Palpitations: No Edema: Bilateral (Varies with weather) Muscle aches with walking: None Resp Respiratory: Negative for SOB with activity, SOB at rest, SOB orthopnea SOB lying down, Cough or paroxysmal nocturnal dyspnea GI GI: Negative nausea, vomiting, heartburn or black,tarry stools : Negative for hematuria Musc Musc: Negative for muscle aches/ myalgia, muscle weakness, joint pain or balance problems Skin Skin: Negative non-healing lesions, rash or unusual bruising Neuro Neuro: Negative for dizziness, lightheadedness, near syncope, syncope, frequent falls, headache(s), weakness, blurry vision, double vision or lack of coordination Kurt Hematologic/Lymphatic: Negative for easy bleeding or easy bruising Endo Endo: Positive for fatigue; Negative for excessive sweating or increased thirst/drinking Psych Psych: Negative for anxiety or depression Allergy Allergy/Immunology: Negative for hives and Negative for rash Cardiology Exam Const Appearance: cooperative, healthy appearing, no acute distress, well developed and well groomed Nutritional Appearance: average body habitus, well nourished and thin Orientation: alert, awake and oriented x3 Head Head: normal to inspection, normocephalic and atraumatic Ears: hearing grossly normal bilaterally and external ears normal Nose: external nose normal, nares normal, nasal mucous membranes and turbinates normal, septum normal and no nasal discharge Face and Sinus: face symmetric Mouth: oral mucosae normal, tongue normal, oropharynx normal and moist mucous membranes Teeth and gingiva: dentition normal Throat: posterior oropharynx normal, tonsils normal and uvula midline Eyes General: appearance normal, both eyes and all related structures Eyelids: eyelids normal Conjunctivae: conjunctivae normal Pupils: PERRL, normal by confrontation and accommodation normal EOM: EOM intact bilaterally Neck Neck: normal visual inspection, trachea midline and no JVD JVD: +5 Carotids: normal carotid upstroke and bounding pulses Chest Chest inspection: normal inspection of the chest, symmetric chest movement and normal respiratory effort Auscultation: Bilateral: Clear to Auscultation Cardio Palpation: normal PMI Rate: regular rate Rhythm: regular rhythm Heart sounds: S1 normal, S2 normal and normal, physiologic split S2; Negative rub, gallop or murmur GI GI: normal to inspection, soft, no hepatosplenomegaly and bowel sounds present Neuro General: patient alert, patient awake, patient oriented x3, gait normal, moves all extremities and no focal sensory deficit Skin Skin: no rashes or lesions noted Extremities Pulses: Normal: Right Femoral Pulse, Left Femoral Pulse, Right Dorsalis Pedis Pulse, Left Dorsalis Pedis Pulse, Right Posterior Tibial Pulse, Left Posterior Tibial Pulse, Right Radial Pulse and Left Radial Pulse Lower Extremity Edema: None: Bilateral Musculoskel Musculoskeletal: No joint tenderness Psych Psychological: normal affect Supplemental Info Supplemental Information CAROTID U/S 01/14/2022 Interpretation Summary Mild (<50%) stenosis right extracranial internal carotid. No significant atherosclerotic plaque or stenosis noted in the left internal carotid artery. Flow within the vertebral arteries is antegrade bilaterally. ECHOCARDIOGRAM 09/02/2021 Interpretation Summary The estimated ejection fraction is 70 %. Mild (1+) mitral valve insufficiency. Aortic sclerosis, no stenosis. Trivial aortic valve insufficiency. STRESS ECHOCARDIOGRAM 06/21/2019 EKG Data The baseline ECG displays normal sinus rhythm. During stress, there were no ST or T wave changes noted to suggest ischemia. No clinical angina was noted. Interpretation Summary The estimated ejection fraction is 65 %. Normal, adequate, modified Isreal treadmill echocardiogram. Negative for ischemia by EKG and echocardiographic criteria. No anginal symptoms noted. Rare PVCs noted. Test terminated due to fatigue. Appropriate blood pressure response to exercise. Below average exercise capacity for age. Decreased sensitivity due to poor echo windows requiring Definity agent. Final LVEF is 75%. No complications. The study was technically difficult. Contrast injection was performed. Laboratory Tests 11/01/21 07:48 Triglycerides 44 Cholesterol 163 LDL Cholesterol 68 HDL Cholesterol 86 Labs: LDL Cholesterol 92 mg/dL (0-130) HDL Cholesterol 96 mg/dL (40-) Triglycerides 53 mg/dL (-199) VLDL Cholesterol 11 mg/dL (5-40) Diagnostics: No Data to Display Pulmonary: No Data to Display Assessment and Plan Assessment and Plan (1) Essential hypertension: Status: Chronic Plan: Patient has a history of hypertension. Her most recent ambulatory blood pressure monitor demonstrated mildly elevated blood pressure, with an average reading of 147/81. She was asked to s tart amlodipine 5mg daily. She has tolerated this well; her blood pressure is well controlled at this time. She will continue with her current medical therapy, along with monitoring her blood pressures at home. She will notify our office of any persistently high or low blood pressure readings. (2) Hyperlipidemia: Status: Chronic Plan: Patient has a history of hyperlipidemia. Her PCP monitors this. Her most recent lipid panel from 05/02/2022: cholesterol 199, HDL 96, LDL 92, triglycerides 53. She will continue with aggressive risk factor and lifestyle modifications. Plan Details Additional Comments: Patient will follow up in 6 months, or sooner if needed. Thank you for allowing me to participate in the care of your patient. Please don't hesitate to call if any issues arise. This note was generated using a voice recognition system and there may be incorrect words, spelling, or punctuation that were not noted when reviewing the office note prior to saving. Portions of this documentation were copied and pasted from previous office visit notes to provide a cohesive continuity of the history. The note has been reviewed, edited, and updated, as necessary. Follow Up: 6 Months (DIAMOND GRINDER/PA) 1 Year (RETAIL BUSINESS DEVELOPMENT MANAGER) Coding Level of Care Code Off vis,est,level 3 Diagnoses Essential hypertension I10 Hyperlipidemia E78.5 Coding Level of Care Code Off vis,est,level 3 Diagnoses Essential hypertension I10 Hyperlipidemia E78.5 06/02/22 1419 <Electronically signed by Daniella Gerber NP DIAMOND GRINDER-C> Date Daniella Gerber NP DIAMOND GRINDER-C Cosigner Signature: Date (if applicable) CC: DIAMOND GRINDER-C Kristie Conner HYPNOTHERAPIST Work Phone: Start: 05-03-2022 End: 05-03-2022 Inital Evaluation (1) - PT Comments: See Note; NOTES: [facility] [address] [place] [address] / REHABILITATION SERVICES INITIAL EVALUATION MR#: [id number] Acct: [id number] Name: JENA COTA Rep #: [id number] : 1940 81 From: Beti Morales PT, Cert. MDT Referring Dr.: KRISTINE Smith Status: REG RCR Insurance: MEDICARE PART A B ANTH Patient's Visit Information JENA COTA is a 81 year old F referred to Physical Therapy by Dr. Su Smith, KRISTINE with a diagnosis of UNSTABLE GAIT. Date of Evaluation: 05/03/22 Physical Therapist: Beti Morales PT, Cert MDT - Visit Plan Frequency: 2-3x /Week Duration: 4-6 Weeks Plan: GAIT AND BALANCE TRAINING TO HELP MEET SET GOALS. LM LE ROM, STRETCHING AND STRENGTHENING. - Subjective PATIENT REPORTS SHE IS BACK TO THERAPY TO CONTINUE TO WORK ON HER WALKING. SHE REPORTS SOME OF HER PROBLEM IS FEAR. HAS CONTINUED DOING HEP GIVEN LAST EPISODE OF CARE WITH PT AND PRACTICING WALKING AT HOME WITH HER ROLLATOR. THIS SEEMS TO HAVE PROVOKED SOME RIGHT ANKLE PAIN BUT IT IS OK NOW. PATIENT REPORTS DR. SMITH SAID THAT EVERYTHING IS GOOD WITH HER FEET THEMSELVES AND SHE ORDERED PT FOR HER BALANCE. PATIENT REPORTS ORTHOTICS OR ORTHOPEDIC SHOES WERE NOT RECOMMENDED. ALSO SAW A NEW NURSE PRACTITIONER AT [facility] YESTERDAY, BLOODWORK ORDERED BUT NO OTHER CHANGES RECOMMENDED THAT PATIENT CAN RE-CALL. PATIENT REPORTS HER BACK AND LEG PAIN THAT SHE CAME TO PT FOR THE LAST MONTH OR TWO IS STILL GONE. Accidents: FALL 2001 - BROKE RIGHT ANKLE - ORIF. Unexplained weight loss: NO. Imaging: RECENT LUMBAR, PELVIC AND HIP X-RAYS IN [facility] EMR: Mild levoscoliosis. IMPRESSION: . Moderate diffuse spondylosis. PMH/Recent major surgery: HTN, HYPOTHYROIDISM, OSTEOPOROSIS. ORIF OF R ANKLE - Objective Sitting/Standing Posture: POOR. FH. RS'S. DECREASED LORDOSIS. SCOLIOSIS. Active Correction of posture: WORSE. Other Observations: INDEP GAIT INTO PT TODAY WITHOUT ANY AD'S OR LOB. PATIENT WALKS WITH MILD INCRASED TRUNK FLEXION, DECREASED CADANCE AND VERY SHORT LM STRIDE LENGTH. AVOIDS FORWARD WEIGHT SHIFT WITH AMBULATION. PATIENT IS ABLE TO TRANSFER INDEP'LY FROM SIT TO STAND WITHOUT UE ASSIST. Sensory deficit: LM LE LIGHT TOUCH SENSATION IS GROSSLY INTACT AND SYMMETRICAL. ROM deficit: TIGHT LM HIP FLEXORS AND HS'S. PATIENT ALSO HAS LM HIP ER TIGHTNESS LEFT > RIGHT. Motor deficit: LM LE'S 5/5 WITH MMT'ING. Dural Signs: NEGATIVE LM LE'S. Core strength: FAIR. - Balance/Special Test Scores Lower Extremity Functional Score: 55 TUG Test Time Seconds: 11.10 30 Second Chair Rise Test Seconds: 9 - Goals Goal 1:: PATIENT WILL COMPLETE TUG IN < 10 SECS TO DEMONSTRATE IMPROVED GAIT STABILITY Goal Time Frame: 4-6 Weeks Goal 2:: PATIENT WILL COMPLETE 12 STANDS IN 30 SECS TO DEMONSTRATE IMPROVED FUNCTIONAL STRENGTH Goal Time Frame: 4-6 Weeks Goal 3:: PATIENT WILL DEMO ABILITY TO ASCEND AND DESCEND STEPS RECIPRICALLY WITHOUT UE ASSIST. Goal Time Frame: 4-6 Weeks Goal 4:: PATIENT WILL REPORT DECREASED FEAR OF FALLING AND DEMO IMPROVED STRIDE LENGTH WITH GAIT FOR BETTER GAIT EFFICIENCY. Goal Time Frame: 4-6 Weeks Goal 5:: PATIENT WILL BE INDEP WITH A HEP FOR CONTINUED IMPROVEMENT ONCE FORMAL PHYSICAL THERAPY CONCLUDES. Goal Time Frame: 4-6 Weeks - Anticipated Interventions Patient/Client Instruction: Educate patient on: Condition, Plan of Care, Risk Factors For the Purpose of:: To improve self management Therapeutic Exercise to Include: Balance training, Flexibilty training, Gait and locomotor training, Neuromotor development For the Purpose of:: To improve muscle performance and motor function, To improve ability of physical actions for home/community/work/leisu re, To improve gait and locomotor functions Thank you for the opportunity to evaluate your patient. For Medicare and Medicare HMO plans, please review the plan of care and approve it. It will need to be FAXED BACK to us at [phone] for Medicare purposes. For Medicare only, by signing this I certify the plan of care. Please let me know if there are questions or concerns regarding this plan of care. Physician Signature: Date: _ <Electronically signed by Beti Morales PT, Cert. MDT> 05/03/22 1404 CC: KRISTINE Smith; DIAMOND GRINDER-C Martina Conner ADÁN Signed Martina Conner HYPNOTHERAPIST Work Phone: Start: 04-28-2022 Screening mammography DIAMOND GRINDER-C Kristie Meadows DIAMOND GRINDER Work Phone: Start: 04-28-2022 End: 04-28-2022 SCRN MAMM (CAD)W/LOAN BILAT Comments: See Note; NOTES: [facility] [address] [place] [address] SCRN MAMM (CAD)W/LOAN BILAT MR#: [id number] Acct: [id number] Name: JENA COTA ANN Rep #: [id number] : 1940 F 81 From: Per barahona MD PCP: SHILPI Sarah Status: REG [facility] Study: SCRN MAMM (CAD)W/LOAN BILAT Date of Exam: 04/15 02/04 Exam# [id number] Ordering Dr: Kristie Meadows NP DIAMOND GRINDER-C MAMMOGRAPHY - BILATERAL SCREENING REASON FOR EXAM: Female, 81 years old. Routine annual screening examination. PERTINENT HISTORY: Non-contributory. TECHNIQUE: Digital bilateral breast loan (3D mammographic acquisition) in the CC and MLO projections. 2-D mediolateral oblique (MLO) and craniocaudad (CC) views of both breasts were obtained. CAD: Full Field Digital Mammography with Computer Added Detection was performed. COMPARISON: Comparison is made with prior study dated 04/27/2021 and 04/20/2020. FINDINGS: Breast Composition: The breasts are heterogeneously dense, which may obscure small masses. There are no dominant masses or suspicious calcifications. Stable bilateral secretory calcifications. No other significant abnormalities are identified. There has been no significant change since the prior study. BI/SCRN MAMM (CAD)W/LOAN BILAT IMPRESSION: Stable bilateral screening mammogram. Yearly follow-up mammogram recommended. (A) ASSESSMENT CATEGORY: BIRADS Category 2: Benign. A letter regarding these results will be sent to the patient by the facility within 30 days. Approximately 10% of breast cancers are not detected by mammography. A normal mammogram should not delay biopsy of a clinically suspicious abnormality. [id number] Electronically Signed: Per Frye MD at 9:18 EDT , CC: SHILPI Conner; SHILPI Meadows [facility] [employer] [facility] Assistant: Signed Martina Conner HYPNOTHERAPIST Work Phone: Start: 03-03-2022 Plain x-ray of pelvis and lower extremity DIAMOND GRINDER-Saravanan Meadows DIAMOND GRINDER Work Phone: Start: 03-03-2022 X-ray of lumbar spine, two or three views DIAMOND GRINDER-Saravanan Meadows DIAMOND GRINDER Work Phone: Start: 03-03-2022 End: 03-03-2022 HIP, UNI W/ Pelvis 2-3 Views Comments: See Note; NOTES: [facility] [address] [place] [address] HIP, UNI W/ Pelvis 2-3 Views MR#: [id number] Acct: [id number] Name: JENA COTA Rep #: [id number] : 1940 F 81 From: Chas Minaya MD PCP: SHILPI Johnson Status: DEP AMB Study: HIP, UNI W/ Pelvis 2-3 Views Date of Exam: Exam# [id number] Ordering Dr: Yovana Fajardo EXAM: XR RIGHT HIP WITH PELVIS WHEN PERFORMED, 2 OR 3 VIEWS CLINICAL INDICATION: Pain TECHNIQUE: Two or three views of the right hip with pelvis when performed. This report was created using Iddiction report TopOPPS technology. COMPARISON: None. FINDINGS: BONES/JOINTS: No acute fracture or subluxation. Degenerative changes noted within the visualized spine. No displaced fracture. No destructive or sclerotic lesions. Sacroiliac joint is unremarkable. No widening of the pubic symphysis. The articular structures are unremarkable. SOFT TISSUES: Unremarkable. No soft tissue swelling or gas. RAD/HIP, UNI W/ Pelvis 2-3 Views IMPRESSION: No acute abnormality. Electronically Signed: Chas Minaya MD at 9:40 EDT Reading Location ID and State: [address] [place] [address] Tel , Service support , CC: SHILPI Meadows; MAIKEL Fajardo Child [employer] Youth Program Assistant: Signed Martina Conner JEANNETTE Work Phone: Start: 03-03-2022 End: 03-03-2022 Lumbar Spine 2 or 3 Views Comments: See Note; NOTES: [facility] [address] [place] [address] Lumbar Spine 2 or 3 Views MR#: [id number] Acct: [id number] Name: JENA COTA ANN Rep #: [id number] : 1940 F 81 From: Chas Minaya MD PCP: SHILPI Johnson Status: DEP AMB Study: Lumbar Spine 2 or 3 Views Date of Exam: Exam# [id number] Ordering Dr: Yovana Fajardo EXAM: XR LUMBOSACRAL SPINE, 2 OR 3 VIEWS CLINICAL INDICATION: Pain TECHNIQUE: Frontal and lateral views of the lumbar spine and sacrum. This report was created using Iddiction report generation technology. COMPARISON: None. FINDINGS: VERTEBRAE: No acute fracture or subluxation. No focal bone lesion. DISC SPACES: Multilevel disc space narrowing and facet arthropathy. Mild anterior listhesis of L2 on L3 and L4 on L5 likely related to underlying degenerative change. Mild levoscoliosis. RAD/Lumbar Spine 2 or 3 Views IMPRESSION: Moderate diffuse spondylosis. Electronically Signed: Chas Minaya MD at 9:14 EDT , CC: SHILPI Meadows; MAIKEL Fajardo Child [employer] Youth Program Assistant: Signed Martina Conner CNP Work Phone: Start: 03-03-2022 End: 03-03-2022 Orthopedic Visit Report Comments: See Note; NOTES: [facility] [address] [place] [address] OFFICE VISIT Date of Service: 03/03/22 MR#: [id number] Acct: [id number] Name: JENA COTA Rep #: [id number] : 1940 Provider: MAIKEL Fajardo Age/Sex: 81/F Location: [facility] [place] Status: Signed Intake Intake Visit Reasons: RIGHT HIP Allergies Sulfa (Sulfonamide Antibiotics) Allergy (Verified 03/01/22 20:40) UNKNOWN Medications alendronate 70 mg tablet 70 mg PO QWEEK 03/01/22 [History Confirmed 03/03/22] cholecalciferol (vitamin D3) 50 mcg (2,000 unit) capsule 50 mcg PO DAILY 03/01/22 [History Confirmed 03/03/22] levothyroxine 88 mcg tablet 88 mcg PO DAILY 03/01/22 [History Confirmed 03/03/22] multivitamin 1 tab PO DAILY 03/01/22 [History Confirmed 03/03/22] multivitamin with minerals 1 tab PO DAILY 03/01/22 [History Confirmed 03/03/22] omega-3 fatty acids-fish oil 340 mg-1,000 mg capsule 1 cap PO DAILY 03/01/22 [History Confirmed 03/03/22] vitamin B complex 1 tab PO DAILY 03/01/22 [History Confirmed 03/03/22] vitamins A,C,D-csiy-gfmjst 14,320 unit-226 mg-200 unit capsule 1 cap PO BID 03/01/22 [History Confirmed 03/03/22] lbbfeqn-dnntvfgykwuim-jnz feine 250 mg-250 mg-65 mg tablet 1 tab PO ONCE PRN 03/03/22 [History Confirmed 03/03/22] methylprednisolone 4 mg tablets in a dose pack 4 mg PO DAILY #21 tab 03/03/22 [Rx Confirmed 03/03/22] naproxen sodium 220 mg capsule 220 mg PO BID PRN 03/03/22 [History Confirmed 03/03/22] propylene glycol 0.6 % eye drops 1 drp OPHTHALMIC (EYE) DAILY PRN 03/03/22 [History Confirmed 03/03/22] PFSH Medical History Circumscribed scleroderma Essential hypertension Hyperlipidemia Hypothyroidism Mitral valve annular calcification Osteoporosis Secondary pulmonary arterial hypertension Surgical History History of cataract surgery Family History Father Cancer Mother Hypertension Heart disease CHF COPD (chronic obstructive pulmonary disease) Brother Cancer Social History Smoking Status: Never smoker HPI RIGHT HIP Details: Parts of this documentation were recorded by a scribe, this documentation accurately reflects the service provided and the decisions made by me, MAIKEL Andrews 03/03/22 0807. JENA COTA is a 81 year old F here today for an initial evaluation of right hip pain. She points to the pain being her right low back. States that the pain comes and goes, can be sharp or dull. The pain is not constant, but she does experience it frequently. States this past Monday she had no pain at all. She does have radiation down her leg and into her foot in a L3- or L4 dermatomal pattern. States she has had pain like this in the past. The first time she had these pain started in October 2020. She has had 3 of these episodes in total. Her first 2 episodes only lasted about 1-2.5 weeks in total. This episode has lasted for the past 1.5 months. She cannot think of anything that she was doing at that time that started the pain. She denies any falls or injuries recently to her right side. Denies any previous injuries or surgeries to her right hip or low back. Does have a history of a prior right ankle fracture that required surgery in 2001 and has not had any issues with it since. Aggravating factors include, walking, being more active/overdoing it. She likes to walk about 1-1.5 miles per day and has found this difficult lately and is not able to do it. Relieving factors include sitting and laying down. States she has no pains laying down. She denies trying ice, heat, topical creams, Tylenol, steroid injections, formal PT, bracing. She states she has tried home exercises she found online which help some. She has found more recently the exercises have made it worse, so she stopped these. Moving her hips in a certain way which seems to help some when these episodes first started happening. She has worked on her posture. Has tried taking Aleve and is unsure whether it has helped or not. Has seen her supervisor mechanic boilermaking recently and will be started on a 24 hour ambulatory blood pressure cuff tomorrow until Monday. She states after this she will be started on a new blood pressure medication she thinks. Her daughter Rita accompanied her to her visit. ROS Const Denies chills and Denies fever(s) Card Denies dyspnea Resp Denies dyspnea GI Denies nausea and Denies vomiting Musc Denies abnormal gait, Reports arthralgias, Reports back pain, Denies joint swelling, Denies limited range of motion, Denies muscle weakness, Denies numbness, Reports radiating pain into limb, Denies stiffness and Denies tingling Skin/Breast Denies rash Neuro No abnormal gait, No numbness and No tingling Ortho Exam General General: Yes no acute distress Neurologic: Yes alert and Yes oriented x3 Psychologic: Yes reasonable and appropriate Right Hip Skin: No Ecchymosis, No soft tissue swelling and No Erythema Contralateral Normal: Yes Impingement Test: 1 Labral Stress Test: 1 Special Tests: No pain with log roll, No TTP Greater Troch, Yes hyperflexion normal, No C sign, Yes TTP Greater sciatic notch (possibly) and No Illiotibial band tenderness Homans Sign: No HIP: No evident signs of infection seen over lower back or right hip. Evident scoliosis seen when bending forward. Uneven hips noted. She has full AROM of the right hip with minimal pains. Slight pain with maximal internal rotation. Has full flexion and extension of the knee with no pain. She is able to bend over and touch her toes, bend backwards, and twist side to side with no discomfort. Able to stand on her heels and toes, plantarflex and dorsiflex. Reflexes same bilaterally in lower extremities. Abduction, adduction, flexion and extension of the hips 5/5. Knee extension and flexion 5/5. No TTP SI joint, ischial tuberosity, greater trochanter. Slight possible TTP over greater sciatic notch, she stated it felt a little different than the other side but was not very bothersome. No TTP over mid lumbar spine. Slight TTP over right paraspinals. No pain with log roll Intact sensation to light touch throughout the right lower extremity. Soft compartments. Negative Homans. Negative straight leg raise. Palpable pedal pulses. Coding Level of Care Code Off vis,new,level 3 Diagnoses Lumbar back pain with radiculopathy affecting right lower extremity M54.16 Assessment and Plan Assessment and Plan (1) Lumbar back pain with radiculopathy affecting right lower extremity: Medications: New: methylprednisolone (Medrol (Royce)) 4 mg PO DAILY 21 tabs 0RF Lumbar Pain Plan: Patient presents today for an initial evaluation of her right hip pain. X-rays of her lumbar spine and right hip were ordered, taken and reviewed with the patient and her daughter. There are minimal degenerative changes seen in the patients right hip. Upon review of her lumbar spine does she some evident degenerative changes and levoscoliosis. Discussed based on her physical exam and x-rays that the pain she is experiencing seems to be coming from her low back. Discussed options for treatment. She would like to start with PT for 6-8 weeks and a Medrol dose royce. A Medrol dose royce was sent in and discussed she should not start this before Monday due to being on an ambulatory blood pressure monitor for 24 hours starting tomorrow at 9am. Called and spoke with Dr. Shabazz's nurse about the patient starting a Medrol dose royce and they will call our office and the patient with any concerns. She will complete PT and will follow up afterwards if she is still having pain and an MRI will be ordered and she will follow up with Dr. Qureshi for review of the MRI. She wanted the x-rays placed onto a disc and the images printed. This was done for the patient. She will follow up as needed or sooner if pain, swelling, numbness or associated symptoms, or concerns develop. All questions answered. Patient in agreement of plan. Plan Details Other Orders: Orders: HIP, UNI W/ Pelvis 2-3 Views Today M25.551 Lumbar Spine 2 or 3 Views Today M54.9 03/03/22 1045 <Electronically signed by Yovana KO> Date Yovana KO Cosigner Signature: Date (if applicable) CC: Martina Conner CNP Work Phone: Start: 03-02-2022 End: 03-02-2022 Cardiology Visit Report Comments: See Note; NOTES: [facility] [address] [place] [address]. [address] [place] [address] OFFICE VISIT Date of Service: 03/02/22 MR#: [id number] Acct: [id number] Name: JENA COTA ANN Rep #: [id number] : 1940 Provider: Dr. Jarod Shabazz MD Age/Sex: 81/F Location: [facility] [place] Status: Signed [facility] History of Present Illness Details: 81-year-old lady with no previous cardiac history who presents with 2 major complaints. She says that she has been dizzy and also more recently fatigued since she had her blood pressure medications changed. She has had no chest pain or paroxysmal nocturnal dyspnea or pedal edema no nausea or diaphoresis or vomiting. She has had a series of tests dating back to 2019. A stress echo in 2018 for fatigue and hypertension demonstrated no evidence of ischemia at a workload of 4 metabolic equivalents. She had complained of dizziness for several months and underwent an echocardiographic evaluation which demonstrated an ejection fraction of 70% in August 2021. Pulm artery systolic pressure 40 to 45 mmHg were noted and she did have some aortic sclerosis with no stenosis and moderate to severe mitral calcification with mild mitral regurgitation. She subsequently had a carotid ultrasound performed in January 2022 demonstrating no significant stenosis and a previous blood flow study had demonstrated normal ankle-brachial indices. As part of her dizziness work-up she had a Holter monitor performed in January 2022 demonstrating average heart rate of 72 bpm in sinus rhythm, minimum of 54 bpm and a maximum 110 bpm while in sinus rhythm. She also had a CT scan of her brain which demonstrated chronic involutional changes with no evidence of hemorrhage or ischemia. Her thyroid function test demonstrated a TSH of 3.9 her lipid profile was excellent with an LDL of 68 and an HDL of 86. She tells me the metoprolol was added after the Holter results and that is when her fatigue began. Her blood pressures at home have been in the range of 127 systolic to 139 systolic and her diastolics have been consistently below 80. Her blood pressure here in the office was noted to be 183/87 and by her cuff was 167/93. Her physical exam otherwise is unremarkable. Intake Vital Signs 03/02/22 10:47 Height 5 ft 3 in Weight: 120 lb BMI 21.2 BP 183/87 H Respiration 16 Pulse 72 Pulse Oximetry (%) 98 Intake Visit Reasons: DIZZY (CIESA) Allergies Sulfa (Sulfonamide Antibiotics) Allergy (Verified 03/01/22 20:40) UNKNOWN Medications alendronate 70 mg tablet 70 mg PO QWEEK 03/01/22 [History Confirmed 03/02/22] cholecalciferol (vitamin D3) 50 mcg (2,000 unit) capsule 50 mcg PO DAILY 03/01/22 [History Confirmed 03/02/22] cyclobenzaprine 5 mg tablet 5 mg PO TID PRN 03/01/22 [History Confirmed 03/02/22] levothyroxine 88 mcg tablet 88 mcg PO DAILY 03/01/22 [History Confirmed 03/02/22] multivitamin 1 tab PO DAILY 03/01/22 [History Confirmed 03/02/22] multivitamin with minerals 1 tab PO DAILY 03/01/22 [History Confirmed 03/02/22] omega-3 fatty acids-fish oil 340 mg-1,000 mg capsule 1 cap PO DAILY 03/01/22 [History Confirmed 03/02/22] vitamin B complex 1 tab PO DAILY 03/01/22 [History Confirmed 03/02/22] vitamins A,C,J-lyij-zpqodw 14,320 unit-226 mg-200 unit capsule 1 cap PO BID 03/01/22 [History Confirmed 03/02/22] Ejection fraction %: 65 to 70 PFSH Medical History Circumscribed scleroderma Essential hypertension Hyperlipidemia Hypothyroidism Mitral valve annular calcification Osteoporosis Secondary pulmonary arterial hypertension Surgical History History of cataract surgery Family History Father Cancer Mother Hypertension Heart disease CHF Social History Smoking Status: Never smoker ROS Const Const: Positive for fatigue; Negative for weakness, headache(s), frequent falls, difficulty sleeping or excessive sweating Eyes Eyes: Negative for loss of peripheral vision, transient loss of vision, blurry vision, double vision or tunnel vision ENT ENT: Negative for headache(s), dizziness, Nosebleed/epistaxis or balance problems Cardio Chest Pain: No Palpitations: No Edema: None Muscle aches with walking: None Resp Respiratory: Negative for SOB with activity, SOB at rest, SOB orthopnea SOB lying down, Cough or paroxysmal nocturnal dyspnea GI GI: Negative nausea, vomiting, heartburn or black,tarry stools : Negative for hematuria Musc Musc: Negative for muscle aches/ myalgia, muscle weakness, joint pain or balance problems Skin Skin: Negative non-healing lesions, rash or unusual bruising Neuro Neuro: Negative for dizziness, lightheadedness, near syncope, syncope, orthostatic symptoms, frequent falls, headache(s), weakness, blurry vision, double vision or lack of coordination Kurt Hematologic/Lymphatic: Negative for easy bleeding or easy bruising Endo Endo: Positive for fatigue; Negative for excessive sweating or increased thirst/drinking Psych Psych: Negative for anxiety or depression Allergy Allergy/Immunology: Negative for hives and Negative for rash Cardiology Exam Const Appearance: cooperative, healthy appearing, no acute distress, well developed and well groomed Nutritional Appearance: average body habitus and well nourished Orientation: alert, awake and oriented x3 Head Head: normal to inspection, normocephalic and atraumatic Ears: hearing grossly normal bilaterally and external ears normal Nose: external nose normal, nares normal, nasal mucous membranes and turbinates normal, septum normal and no nasal discharge Face and Sinus: face symmetric Mouth: oral mucosae normal, tongue normal, oropharynx normal and moist mucous membranes Teeth and gingiva: dentition normal Throat: posterior oropharynx normal, tonsils normal and uvula midline Eyes General: appearance normal, both eyes and all related structures Eyelids: eyelids normal Conjunctivae: conjunctivae normal Pupils: PERRL, normal by confrontation and accommodation normal EOM: EOM intact bilaterally Neck Neck: normal visual inspection, trachea midline and no JVD JVD: +5 Carotids: normal carotid upstroke and bounding pulses Chest Chest inspection: normal inspection of the chest, symmetric chest movement and normal respiratory effort Auscultation: Bilateral: Clear to Auscultation Cardio Palpation: normal PMI Rate: regular rate Rhythm: regular rhythm Heart sounds: S1 normal, S2 normal and normal, physiologic split S2; Negative rub, gallop or murmur GI GI: normal to inspection, soft, no hepatosplenomegaly and bowel sounds present Neuro General: patient alert, patient awake, patient oriented x3, gait normal, moves all extremities and no focal sensory deficit Skin Skin: no rashes or lesions noted Extremities Pulses: Normal: Right Femoral Pulse, Left Femoral Pulse, Right Dorsalis Pedis Pulse, Left Dorsalis Pedis Pulse, Right Posterior Tibial Pulse, Left Posterior Tibial Pulse, Right Radial Pulse and Left Radial Pulse Lower Extremity Edema: None: Bilateral Musculoskel Musculoskeletal: No joint tenderness Psych Psychological: normal affect Supplemental Info Supplemental Information CAROTID U/S 01/14/2022 Interpretation Summary Mild (<50%) stenosis right extracranial internal carotid. No significant atherosclerotic plaque or stenosis noted in the left internal carotid artery. Flow within the vertebral arteries is antegrade bilaterally. ECHOCARDIOGRAM 09/02/2021 Interpretation Summary The estimated ejection fraction is 70 %. Mild (1+) mitral valve insufficiency. Aortic sclerosis, no stenosis. Trivial aortic valve insufficiency. STRESS ECHOCARDIOGRAM 06/21/2019 EKG Data The baseline ECG displays normal sinus rhythm. During stress, there were no ST or T wave changes noted to suggest ischemia. No clinical angina was noted. Interpretation Summary The estimated ejection fraction is 65 %. Normal, adequate, modified Isreal treadmill echocardiogram. Negative for ischemia by EKG and echocardiographic criteria. No anginal symptoms noted. Rare PVCs noted. Test terminated due to fatigue. Appropriate blood pressure response to exercise. Below average exercise capacity for age. Decreased sensitivity due to poor echo windows requiring Definity agent. Final LVEF is 75%. No complications. The study was technically difficult. Contrast injection was performed. Laboratory Tests 08/16/21 07:48 Triglycerides 44 Cholesterol 163 LDL Cholesterol 68 HDL Cholesterol 86 Labs: LDL Cholesterol 68 mg/dL (0-130) HDL Cholesterol 86 mg/dL (40-) Triglycerides 44 mg/dL (-199) VLDL Cholesterol 9 mg/dL (5-40) Diagnostics: Electrocardiogram Echocardiogram Pulmonary: No Data to Display Assessment and Plan Assessment and Plan (1) Elevated BP without diagnosis of hypertension: Status: Acute Plan - Dr. Jarod Shabazz MD: Does have evidence of elevated blood pressure without a diagnosis of hypertension. She appears to have whitecoat hypertension. Her blood pressures at home have been more in the normotensive range. I would like us to obtain a 24-hour ambulatory blood pressure monitoring and depending on the findings further recommendations will be made. In the interim however we will discontinue her metoprolol. I have explained this to her and her daughter they understand and agree to proceed. Plan Details Other Medications: Discontinued: metoprolol succinate ER Discontinued Reason: Duplicate Order 25 mg PO DAILY Other Orders: Orders: AMB Blood Pressure Monitor Today I10 Follow Up: 3 Months (kr) Coding Level of Care Code Off vis,new,level 4 Diagnoses Elevated BP without diagnosis of hypertension R03.0 Coding Level of Care Code Off vis,new,level 4 Diagnoses Elevated BP without diagnosis of hypertension R03.0 03/02/22 1112 <Electronically signed by Jarod Shabazz MD> Date Jarod Shabazz MD Cosigner Signature: Date (if applicable) CC: DIAMOND GRINDER-C Martina Arroyoyn Ubaldo HYPNOTHERAPIST Work Phone: Start: 01-17-2022 End: 01-17-2022 Brain/Head without Contrast Comments: See Note; NOTES: [facility] [address] [place] [address] Brain/Head without Contrast MR#: [id number] Acct: [id number] Name: JENA COTA Rep #: [id number] : 1940 F 81 From: Per barahona MD PCP: SHILPI Johnson Status: REG CLI Study: Brain/Head without Contrast Date of Exam: 02/04 Exam# [id number] Ordering Dr: Kristie Meadows NP STUDY: CT BRAIN WITHOUT CONTRAST REASON FOR EXAM: Female, 81 years old. DIZZINESS RADIATION DOSAGE (If Supplied By Facility): CTDIvol = ( 44.99 ) mGy, DLP = ( 796.11 ) mGycm TECHNIQUE: Transaxial CT imaging of the brain was performed without administration of intravenous contrast material. Individualized dose optimization techniques were used for this CT. COMPARISON: No relevant priors. FINDINGS: Normal soft tissue structures. Normal calvarium. There is mild cerebral atrophy with widening of the extra-axial spaces and ventricular dilatation. Normal white matter tracts of the cerebral hemispheres. Normal basal ganglia and thalami. Normal brainstem. There is mild cerebellar atrophy. There is no intracranial hemorrhage. There are no findings of an acute ischemic infarction. Atherosclerotic calcification of the cavernous portions of the internal carotid arteries bilaterally. Normal visualized paranasal sinuses. CT/Brain/Head without Contrast IMPRESSION: Chronic involutional changes of the brain. Electronically Signed: Per Frye MD at 8:37 EDT , CC: SHILPI Meadows Child And Youth Program Assistant: Signed Kristie Meadows Work Phone: Start: 01-17-2022 CT of head without contrast Start: 01-14-2022 End: 01-14-2022 Carotid Duplex Ultrasound Comments: See Note; NOTES: [facility] [address] [place] [address] Carotid Duplex Ultrasound 01/14/22 1254 MR#: [id number] Acct: [id number] Name: JENA COTA Rep #: [id number] : 1940 81 From: Ric Tony MD Attending Dr: SHILPI Johnson Status: REG CLI Ordering Dr: Kristie Meadows NP DIAMOND GRINDER-C Date: 01/14/22 Location: [facility] Sex: F C Admitted: Reason For Study: Dizziness Rt. Velocities/BP Lt. Velocities/BP Prox CCA 113/13 cm/sec. Prox CCA 86/16 cm/sec. Mid CCA 83/16 cm/sec. Mid CCA 71/14 cm/sec. Dist CCA 73/13 cm/sec. Dist CCA 67/16 cm/sec. Prox ICA 67/15 cm/sec. Prox ICA 86/19 cm/sec. Mid ICA 62/14 cm/sec. Mid ICA 70/12 cm/sec. Dist ICA 66/21 cm/sec. Dist ICA 54/16 cm/sec. Rt. ICA/CCA = 0.8. Lt. ICA/CCA = 1.2. Prox ECA 66/8 cm/sec. Prox ECA 71/10 cm/sec. Rt. Vert. 42/12 cm/sec. Lt. Vert. 56/10 cm/sec. Right Extracranial There is intimal thickening but no significant atherosclerotic plaque noted in the right common carotid artery. There is heterogeneous, irregular atherosclerotic plaque noted in the right internal carotid artery. There is heterogeneous, irregular atherosclerotic plaque noted in the right external carotid artery. Antegrade flow is noted in the right vertebral artery. Left Extracranial There is heterogeneous, irregular atherosclerotic plaque noted in the left common carotid artery. There is intimal thickening but no significant atherosclerotic plaque noted in the left internal carotid artery. There is intimal thickening but no significant atherosclerotic plaque noted in the left external carotid artery. Antegrade flow is noted in the left vertebral artery. Procedure Carotid Duplex 17675. This is a Carotid Duplex examination using B-mode, color flow and specral Doppler. Exam performed in department. VL/Carotid Duplex Ultrasound Interpretation Summary Mild (<50%) stenosis right extracranial internal carotid. No significant atherosclerotic plaque or stenosis noted in the left internal carotid artery. Flow within the vertebral arteries is antegrade bilaterally. _ Ordering Physician: Kristie Meadows Referring Physician: Kristie Meadows Performed By: Janny Briscoe, RDCS, RVT 01/14/22 1643 Date Ric Tony MD CC: DIAMOND GRINDER-C Kristie Meadows Date Dictated: 01/14/22 1254 Date Transcribed: 01/14/22 164 Child And Youth Program Assistant: Signed Kristie Meadows Work Phone: Start: 12-15-2021 Plain X-ray of shoulder Start: 12-15-2021 End: 12-15-2021 Shoulder min 2 Views Comments: See Note; NOTES: [facility] [address] [place] [address] Shoulder min 2 Views MR#: [id number] Acct: [id number] Name: JENA COTA Rep #: [id number] : 1940 F 81 From: Von Peterson PCP: SHILPI Johnson Status: REG CLI Study: Shoulder min 2 Views Date of Exam: 12/15/21 Exam# [id number] Ordering Dr: Kristie Meadows NP DIAMOND GRINDER-Saravanan STUDY: XR Shoulder Min 2 Views REASON FOR EXAM: Female, 81 years old. PAIN TECHNIQUE: XR Shoulder Min 2 Views COMPARISON: None. FINDINGS: Normal glenohumeral articulation. Normal acromioclavicular joint. Normal acromion. Normal humeral head and visualized proximal humerus. The soft tissue structures are unremarkable. Normal visualized pulmonary apex. RAD/Shoulder min 2 Views IMPRESSION: There are no acute findings of the shoulder. Electronically Signed: Von Yeboah MD at 20:12 EST Reading Location ID and State: [facility] / [place] , Service support , CC: SHILPI Meadows Child And Youth Program Assistant: Signed Kristie Meadows [facility] Work Phone: Start: 09-02-2021 End: 09-03-2021 12 Lead EKG Comments: See Note; NOTES: [facility] [address] [place] [address] 12 Lead EKG 09/02/21 1251 MR#: [id number] Acct: [id number] Name: JENA COTA Rep #: [id number] : 1940 81 From: Oscar Ortiz MD Attending Dr: Kristie Meadows NP-C Status: REG CLI Ordering Dr: Kristie Meadows NP Date: 09/02/21 Location: [facility] Sex: F C Admitted: Test Reason : DIZZINESS Blood Pressure : / mmHG Vent. Rate : 085 BPM Atrial Rate : 085 BPM P-R Int : 184 ms QRS Dur : 088 ms QT Int : 378 ms P-R-T Axes : 085 070 079 degrees QTc Int : 449 ms Normal sinus rhythm Normal ECG Confirmed by KATHRINE OCASIO, LOR ([id number]), publications editor HILLARY MYLES ([id number]) on 09/03/2021 1:50:24 PM Referred By: Kristie Meadows Confirmed By:ELISABETH ORTIZ MD 09/03/21 1350 Date Oscar Ortiz MD CC: DIAMOND GRINDER-C Kristie Meadows Signed Kristie Meadows HYPNOTHERAPIST Work Phone: Start: 09-02-2021 End: 09-03-2021 Echo Complete Comments: See Note; NOTES: [facility] [address] [place] [address] Echo Complete 09/02/21 1253 MR#: [id number] Acct: [id number] Name: JENA COTA ANN Rep #: [id number] : 1940 81 From: Oscar Ortiz MD Attending Dr: SHILPI Johnson Status: REG CLI Ordering Dr: Kristie Meadows NP DIAMOND GRINDER-C Date: 09/02/21 Location: [facility] Sex: F C Admitted: Reason For Study: DIZZINESS Procedure This was a 2D Doppler, Color Flow transthoracic echocardiogram. Exam performed in department. Left Ventricle Normal LV size. The estimated ejection fraction is 70 %. Unable to assess diastolic dysfunction. No regional wall motion abnormalities noted. Right Ventricle Normal RV size. Normal systolic function. Atria Normal left atrium. Normal right atrium. No doppler evidence for ASD. Mitral Valve There is moderate to severe mitral annular calcification. There is no mitral valve stenosis. Mild (1+) mitral valve insufficiency. Tricuspid Valve There is no tricuspid stenosis. Mild tricuspid valve insufficiency. Pulmonary artery systolic pressure is 40-45 mmHg. Aortic Valve Trisinus/trileaflet aortic valve. Aortic sclerosis, no stenosis. There is no aortic stenosis. Trivial aortic valve insufficiency. Pulmonic Valve There is no pulmonic valvular stenosis. No pulmonic valve insufficiency. Great Vessels Normal aortic root. Pericardium/Pleural No pericardial effusion. MMode/2D Measurements Calculations LVIDd: 4.0 cm IVSd: 0.77 cm Ao root diam: 3.5 cm LVIDs: 2.4 cm LVPWd: 0.80 cm RVDd: 3.3 cm FS: 40.5 % LAV(MOD-sp4): 40.0 ml LA A4 area: 16.0 cm2 LA dimension(2D): 2.5 cm RA A4 area: 10.6 cm2 Doppler Measurements Calculations MV E max justin: 94.5 cm/sec Lat Peak E' Justin: 8.3 cm/sec Med Peak E' Justin: 8.0 cm/sec E/E' lat: 11.4 E/E' med: 11.8 MV V2 max: 120.1 cm/sec Ao V2 max: 135.6 cm/sec AI max justin: 272.1 cm/sec MV max P.8 mmHg Ao max P.4 mmHg AI max P.6 mmHg MV V2 mean: 84.3 cm/sec AI dec slope: 180.7 cm/sec2 MV mean P.1 mmHg AI P1/2t: 441.0 msec MV V2 VTI: 32.7 cm LV V1 max: 127.3 cm/sec PA V2 max: 112.2 cm/sec TR max justin: 303.2 cm/sec LV V1 max P.5 mmHg TR max P.8 mmHg MV P1/2t-pr_phl: 79.7 msec ECHO/Echo Complete Interpretation Summary The estimated ejection fraction is 70 %. Mild (1+) mitral valve insufficiency. Aortic sclerosis, no stenosis. Trivial aortic valve insufficiency. _ Ordering Physician: Kristie Meadows Referring Physician: Kristie Meadows Performed By: Kamryn Smith RDCS, RVT 09/03/21 1234 Date Oscar Ortiz MD CC: DIAMOND GRINDER-C Kristie Meadows Date Dictated: 09/02/21 1253 Date Transcribed: 09/03/21 1234 Child And Youth Program Assistant: Signed Kristie Meadows CNP Work Phone: Start: 04-27-2021 End: 04-29-2021 Dexa Bone Density Study Comments: See Note; NOTES: [facility] Services [address] [place] [address] Dexa Bone Density Study MR#: [id number] Acct: [id number] Name: JENA COTA Rep #: [id number] : 1940 F 80 From: Per barahona MD PCP: SHILPI Johnson Status: REG CLI Study: Dexa Bone Density Study Date of Exam: 04/27/21 Exam# [id number] Ordering Dr: Kristie Meadows NP STUDY: DUAL ENERGY X-RAY ABSORPTIOMETRY / DXA REASON FOR EXAM: Female, 80 years old. OSTE patient is postmenopausal. Loss of height. TECHNIQUE: Bone Mineral Density (BMD) measurements of lumbar spine and bilateral hips were obtained. COMPARISON: Comparison is made with prior study dated 04/09/2019. FINDINGS: Lumbar Spine (L1-L4): g/cm2 (0.914) / T-score (-1.2) / Z-score (1.6) Findings are suggestive of osteopenia with a low fracture risk. Left Femur Total: g/cm2 (0.517) / T-score (-3.5) / Z-score (-1.3) Left Femoral Neck: g/cm2 (0.511) / T-score (-3.0) / Z-score (-0.6) Right Femur Total: g/cm2 (0.491) / T-score (-3.7) / Z-score (-1.5) Right Femoral Neck: g/cm2 (0.472) / T-score (-3.4) / Z-score (-1.0) The T-Scores on the most recent prior examination were: Lumbar Spine (L1-L4): There has been improvement of bone density since the previous examination. Left Femur Total: which represents an improvement of 1%. Right Femur Total: which represents an improvement of 4.3%. BD/Dexa Bone Density Study IMPRESSION: The patient is considered osteoporotic as outlined below according to World Diallo Organization (WHO) criteria with a high fracture risk. There has been improvement of bone density since the previous examination. Reference Information: The T-score is the number of standard deviations above or below the standard which is normal for young adults at their peak bone mineral density. The World Health Organization (WHO) interprets the T-scores as follows: Above -1 Normal bone density Between -1 and -2.5 Osteopenia Equal to / or below -2.5 Osteoporosis As a practical clinical guideline, osteopenia may be graded as follows: Mild -1 through -1.5 Moderate -1.6 through -2.0 Severe -2.1 through -2.4 The Z-score is the number of standard deviations above or below age-matched controls. A Z-score of less than -1.5 would be considered abnormal. References: 1. NIH Osteoporosis and Related Bone Diseases www osteo.org 2. International Society for Clinical Densitometry www iscd.org 3. National Osteoporosis Foundation www nof.org Electronically Signed: Per Frye MD at 15:34 EDT , Service support , CC: SHILPI Meadows Child And Youth Program Assistant: Signed Kristie Maedows [facility] Work Phone: Start: 04-27-2021 End: 04-27-2021 SCRN MAMM (CAD)W/LOAN PUGH Comments: See Note; NOTES: [facility] [address] [place] [address] SCRN MAMM (CAD)W/LOAN BILAT MR#: [id number] Acct: [id number] Name: JENA COTA Rep #: [id number] : 1940 F 80 From: Per barahona MD PCP: SHILPI Johnson Status: REG CL Study: SCRN MAMM (CAD)W/LOAN BILAT Date of Exam: 04/15 01/03 Exam# [id number] Ordering Dr: Kristie Meadows NP DIAMOND GRINDER-C MAMMOGRAPHY - BILATERAL SCREENING REASON FOR EXAM: Female, 80 years old. Routine annual screening examination. PERTINENT HISTORY: Non-contributory. TECHNIQUE: Digital bilateral breast loan (3D mammographic acquisition) in the CC and MLO projections. 2-D mediolateral oblique (MLO) and craniocaudad (CC) views of both breasts were obtained. CAD: Full Field Digital Mammography with Computer Added Detection was performed. COMPARISON: Comparison is made with prior study dated 04/20/2020 and 04/09/2019. FINDINGS: Breast Composition: The breasts are heterogeneously dense, which may obscure small masses. There are no dominant masses or suspicious calcifications. Stable bilateral secretory calcifications. No other significant abnormalities are identified. There has been no significant change since the prior study. BI/SCRN MAMM (CAD)W/LOAN BILAT IMPRESSION: Stable bilateral screening mammogram. Yearly follow-up mammogram recommended. (A) ASSESSMENT CATEGORY: BIRADS Category 2: Benign. A letter regarding these results will be sent to the patient by the facility within 30 days. Approximately 10% of breast cancers are not detected by mammography. A normal mammogram should not delay biopsy of a clinically suspicious abnormality. [id number] Electronically Signed: Per Frye MD at 9:13 EDT , Service support , CC: SHILPI Meadows Child And Youth Program Assistant: Signed Kristie Meadows CNP Work Phone: Start: 03-17-2021 End: 03-19-2021 Hand Min 3 Views Comments: See Note; NOTES: [facility] [address] [place] [address] Hand Min 3 Views MR#: [id number] Acct: [id number] Name: JENA COTA Rep #: [id number] : 1940 F 80 From: Per barahona MD PCP: SHILPI Johnson Status: DEP AMB Study: Hand Min 3 Views Date of Exam: 03/17/21 Exam# [id number] Ordering Dr: Kristie Meadows NP STUDY: X-RAY - LEFT HAND REASON FOR EXAM: Female, 80 years old. Pain at base of thumb TECHNIQUE: 3 view(s) of the hand. COMPARISON: None. FINDINGS: There is joint space narrowing of the radiocarpal articulation consistent with degenerative arthrosis. Normal distal radioulnar joint. Normal visualized carpal bones. Normal carpal articulations There is degenerative arthrosis of the carpometacarpal articulation of the thumb with lateral subluxation of the first metacarpus. Normal second through fifth carpometacarpal joints. Normal metacarpi. Normal metacarpophalangeal joint of the thumb. Normal interphalangeal joint of the thumb. Normal proximal and distal phalanges of the thumb. Normal metacarpophalangeal joints of the second through fifth fingers. Normal proximal and distal interphalangeal joints of the second through fifth fingers. Normal phalanges of the second through fifth fingers. The soft tissue structures are unremarkable. RAD/Hand Min 3 Views IMPRESSION: Degenerative changes of the radiocarpal joint as well as the carpometacarpal articulation of the thumb. Electronically Signed: Per Frye MD at 8:52 EDT , Service support , CC: SHILPI Meadows Child And Youth Program Assistant: Signed Kristie Meadows HYPNOTHERAPIST Work Phone: Start: 04-20-2020 End: 04-20-2020 Thyroid Comments: See Note; NOTES: [facility] [address] [place] [address] Thyroid MR#: [id number] Acct: [id number] Name: JENA COTA Rep #: [id number] : 1940 F 79 From: Brenna Montero MD PCP: SHILPI Johnson Status: REG CLI Study: Thyroid Date of Exam: 04/20/20 Exam# [id number] Ordering Dr: Kristie Meadows STUDY: THYROID ULTRASOUND REASON FOR EXAM: Female, 79 years old. Abnormal TSH TECHNIQUE: Ultrasound evaluation of the thyroid was performed with real-time and static black-scale imaging. COMPARISON: None. FINDINGS: RIGHT LOBE: The right lobe of the thyroid gland measures 3.6 x 1.2 x 1.1 cm. There is a heterogeneous echotexture. There are no demonstrated solid, cystic or complex lesions. LEFT LOBE: The left lobe of the thyroid gland measures 3.1 x 0.7 x 1.0 cm. There is a heterogeneous echotexture. There are no demonstrated solid, cystic or complex lesions. ISTHMUS: The isthmus measures 0.15 cm. The regional lymph nodes are normal. US/Thyroid IMPRESSION: Heterogenous thyroid gland which may reflect a history of thyroiditis. Electronically Signed: Brenna Montero MD at 21:12 EDT Tel , Service support , CC: SHILPI Meadows Child And Youth Program Assistant: Signed Ludy Dori Work Phone: Start: 04-20-2020 End: 04-20-2020 SCREEN MAMM (CAD) W/LOAN BILAT Comments: See Note; NOTES: [facility] [address] [place] [address] SCREEN MAMM (CAD) W/LOAN BILAT MR#: [id number] Acct: [id number] Name: JENA COTA Rep #: [id number] : 1940 F 79 From: Per barahona MD PCP: SHILPI Johnson Status: REG CLI Study: SCREEN MAMM (CAD) W/LOAN BILAT Date of Exam: 0 04/20/20 Exam# [id number] Ordering Dr: Kristie Meadows MAMMOGRAPHY - BILATERAL SCREENING REASON FOR EXAM: Female, 79 years old. Routine annual screening examination. PERTINENT HISTORY: Non-contributory. TECHNIQUE: Digital bilateral breast loan (3D mammographic acquisition) in the CC and MLO projections. 2-D mediolateral oblique (MLO) and craniocaudad (CC) views of both breasts were obtained. CAD: Full Field Digital Mammography with Computer Added Detection was performed. COMPARISON: Comparison is made with prior examination dated April 09, 2019 and March 19, 2018. FINDINGS: Breast Composition: The breasts are heterogeneously dense, which may obscure small masses. There are no dominant masses or suspicious calcifications. Stable bilateral secretory calcifications. No other significant abnormalities are identified. There has been no significant change since the prior study. BI/SCREEN MAMM (CAD) W/LOAN BILAT IMPRESSION: Stable bilateral screening mammogram. Yearly follow-up mammogram recommended. (A) ASSESSMENT CATEGORY: BIRADS Category 2: Benign. A letter regarding these results will be sent to the patient by the facility within 30 days. Approximately 10% of breast cancers are not detected by mammography. A normal mammogram should not delay biopsy of a clinically suspicious abnormality. [id number] Electronically Signed: Per Uday, at 14:48 EDT , Service support , CC: SHILPI Meadows Child And Youth Program Assistant: Signed Kristie Meadows Work Phone: Start: 06-21-2019 End: 06-21-2019 Stress Test Echo w/ Contrast Comments: See Note; NOTES: [facility] [address] [place] [address] Stress Test Echo W/Contrast MR#: [id number] Acct: [id number] Name: JENA COTA Rep #: [id number] : 1940 79 From: Toni Qureshi MD Primary Care: SHILPI Johnson Status: REG CLI Ordering Dr: Kristie Meadows Sex: F C Reason For Study: Fatigue/HTN Stress Results Protocol: Modified Isreal Protocol Maximum Predicted HR: 139 bpm Target HR: 118 bpm % Maximum Predicted HR: 106 % DurationHeart Rate Stage (mm:ss) (bpm) BP Comment Baseline 88 138/82No Chest Pain; Diluted Definity 3 ML Given Modified Isreal Protocol Stage 0 3:00 130 146/72No Chest Pain Modified Isreal Protocol Stage 1/2 3:00 141 172/68No Chest Pain Modified Isreal Protocol Stage 1 3:00 148 190/70No Chest Pain; Mild to Moderate Dyspnea Recovery 100 130/82No Chest Pain Stress Duration: 9:00 mm:ss Maximum Stress HR: 148 bpm METS: 4 Baseline Echocardiogram Findings The estimated ejection fraction is 65 %. Stress Echo Wall motion Data Resting WM Intermediate WM Stress WM Resting Wall Motion Wall Motion Stress No regional wall motion No regional wall motion abnormalities noted. abnormalities noted. EKG Data The baseline ECG displays normal sinus rhythm. During stress, there were no ST or T wave changes noted to suggest ischemia. No clinical angina was noted. Interpretation Summary The estimated ejection fraction is 65 %. Normal, adequate, modified Isreal treadmill echocardiogram. Negative for ischemia by EKG and echocardiographic criteria. No anginal symptoms noted. Rare PVCs noted. Test terminated due to fatigue. Appropriate blood pressure response to exercise. Below average exercise capacity for age. Decreased sensitivity due to poor echo windows requiring Definity agent. Final LVEF is 75%. No complications. The study was technically difficult. Contrast injection was performed. Ordering Physician: Kristie Meadows Referring Physician: Toni Qureshi Performed By: Kamryn Smith, EMMETT, RVT 06/21/19 1339 Date Toni Qureshi MD CC: DIAMOND GRINDER-C Kristie Meadows Date Dictated: 06/21/19 1032 Date Transcribed: 06/21/19 133 Child And Youth Program Assistant: Signed Kristie Meadows Work Phone: Start: 04-09-2019 End: 04-16-2019 Dexa Bone Density Study Comments: See Note; NOTES: [facility] [address] [place] [address] Dexa Bone Density Study MR#: [id number] Acct: [id number] Name: JENA COTA Rep #: [id number] : 1940 F 78 From: Per Frye MD PCP: Kristie Meadows NP Status: DEP CLI Study: Dexa Bone Density Study Date of Exam: 04/09/19 Exam# [id number] Ordering Dr: Kristie Meadows STUDY: DUAL ENERGY X-RAY ABSORPTIOMETRY / DXA REASON FOR EXAM: Female, 78 years old. The patient is postmenopausal. Loss of height. TECHNIQUE: Bone [place] Density (BMD) measurements of lumbar spine and bilateral hips were obtained. COMPARISON: Comparison is made with prior study dated March 15, 2017. FINDINGS: Lumbar Spine (L1-L4): g/cm2 (0.748) / T-score (-3.5) / Z-score (-1.6) Findings are suggestive of osteoporosis with a high fracture risk. Left Femur Total: g/cm2 (0.565) / T-score (-3.5) / Z-score (-1.5) Left Femoral Neck: g/cm2 (0.647) / T-score (-2.8) / Z-score (-0.6) Right Femur Total: g/cm2 (0.523) / T-score (-3.8) / Z-score (-1.8) Right Femoral Neck: g/cm2 (0.632) / T-score (-2.9) / Z-score (-0.7) The T-Scores on the most recent prior examination were: Lumbar Spine (L1-L4): There has been worsening of bone density since the previous examination. Left Femur Total: which represents a worsening of 3.1%. Right Femur Total: which represents a worsening of 6.1%. BD/Dexa Bone Density Study IMPRESSION: The patient is considered osteoporotic as outlined below according to World Diallo Organization (WHO) criteria with a high fracture risk. There has been worsening of bone density since the previous examination. Reference Information: The T-score is the number of standard deviations above or below the standard which is normal for young adults at their peak bone mineral density. The World Health Organization (WHO) interprets the T-scores as follows: Above -1 Normal bone density Between -1 and -2.5 Osteopenia Equal to / or below -2.5 Osteoporosis As a practical clinical guideline, osteopenia may be graded as follows: Mild -1 through -1.5 Moderate -1.6 through -2.0 Severe -2.1 through -2.4 The Z-score is the number of standard deviations above or below age-matched controls. A Z-score of less than -1.5 would be considered abnormal. References: 1. NIH Osteoporosis and Related Bone Diseases http://www.osteo.org 2. International Society for Clinical Densitometry http://www.iscd.org 3. National Osteoporosis Foundation http://www.nof.org Electronically Signed: Per Frye, at 10:54 EDT , Service support , CC: LINO Meadows Child And Youth Program Assistant: Signed Kristie Meadows Work Phone: Start: 04-09-2019 End: 04-09-2019 SCREEN MAMM (CAD) W/LOAN BILAT Comments: See Note; NOTES: [facility] [address] [place] [address] SCREEN MAMM (CAD) W/LOAN BILAT MR#: [id number] Acct: [id number] Name: JENA COTA Rep #: [id number] : 1940 F 78 From: Adal Savage MD PCP: Kristie Meadows NP Status: REG [facility] Study: SCREEN MAMM (CAD) W/LOAN BILAT Date of Exam: 04/09/19 Exam# [id number] Ordering Dr: Kristie Meadows DIAMOND GRINDER-C MAMMOGRAPHY - BILATERAL SCREENING 3-D TOMOSYNTHESIS REASON FOR EXAM: Female, 78 years old. Bilateral Screening 3-D tomosynthesis PERTINENT HISTORY: No significant family history. TECHNIQUE: 2-D mammograms and 3-D Tomosynthesis of the breast (s) were performed. CAD was performed. COMPARISON: March 19, 2018, March 15, 2017 FINDINGS: The breast composition is heterogeneously dense that can obscure small breast masses. Scattered benign calcifications are seen. No dense spiculated masses or suspicious microcalcifications are identified. No architectural distortion is identified. There is no skin thickening or retraction. There has been no significant change since the prior study. BI/SCREEN MAMM (CAD) W/LOAN BILAT IMPRESSION: No mammographic signs of malignancy. Routine yearly mammograms recommended. ASSESSMENT CATEGORY: BIRADS Category 2: Benign. A letter regarding these results will be sent to the patient by the facility within 30 days. FOLLOW UP RECOMMENDATION: Yearly follow up mammogram recommended. (A) Approximately 10% of breast cancers are not detected by mammography. A normal mammogram should not delay biopsy of a clinically suspicious abnormality. Electronically Signed: Adal Savage MD at 17:46 EDT , Service support , CC: LINO Meadows Child And Youth Program Assistant: Signed Ludy Dori Work Phone: Start: 04-05-2018 End: 04-05-2018 Downtime Report Comments: See Note; NOTES: [facility] Medical Records Department [address] [place] [address] Downtime Report MR#: [id number] Acct: [id number] Name: JENA COTA Rep #: [id number] : [id number] 77 From: Jim Her PCP: Kristie Meadows NP Status: REG CLI This patient was seen during an EMR downtime March 19, 2018 - March 26, 2018. This patient may have a combination of paper and electronic documentation or all paper documentation. All documentation is viewable within the e-chart portion of [employer] for each patient visit. Kristie Meadows Start: 03-23-2018 End: 03-29-2018 SCREENING MAMM (CAD), BILAT Comments: See Note; NOTES: [facility] Imaging Services [address] [place] [address] SCREENING MAMM (CAD), BILAT MR#: [id number] Acct: [id number] Name: ALIS COTAH Tiesha Rep #: [id number] : 1940 F 77 From: Aixa Weeks MD PCP: Kristie Meadows NP Status: REG CLI Study: SCREENING MAMM (CAD), BILAT Date of Exam: 03/19/18 Exam# [id number] Ordering Dr: Kristie Meadows MAMMOGRAPHY - BILATERAL SCREENING REASON FOR EXAM: Female, 77 years old. Routine annual screening examination. PERTINENT HISTORY: Non-contributory. TECHNIQUE: Digital bilateral breast loan (3D mammographic acquisition) in the CC and [...] delay biopsy of a clinically suspicious abnormality. [id number] Electronically Signed: Aixa Weeks MD at 13:15 EDT Tel , Service support , CC: Kristie Meadows NP Child And Youth Program Assistant: Signed Kristie Meadows Work Phone: Start: 03-15-2017 End: 03-15-2017 Dexa Bone Density Study () Comments: See Note; NOTES: [facility] Imaging Services [address] [place] [address] Verdana 4d Dexa Bone Density Study () MR#: [id number] Acct: [id number] Name: JENA COTA Rep #: [id number] : 1940 F 76 From: Per Frye MD PCP: Kristie Meadows Status: REG CLI Study: Dexa Bone Density Study () Date of Exam: 03/15/17 Exam# [id number] Ordering Dr: Kristie Meadows STUDY: DUAL ENERGY X-RAY ABSORPTIOMETRY / DXA REASON FOR EXAM: Female, 76 years old. The patient is postmenopausal. Loss of height. TECHNIQUE: Bone Mineral Density (BMD) measurements of lumbar spine and bilateral hips were obtained. COMPARISON: Comparison is made with prior study dated January 13, 2011. FINDINGS: Lumbar Spine (L1-L4): g/cm2 (0.753) / T-score (-3.4) / Z-score (-1.6) Findings are suggestive of osteoporosis with a high fracture risk. Left Femur Total: g/cm2 (0.583) / T-score (-3.4) / Z-score (-1.4) Left Femoral Neck: g/cm2 (0.634) / T-score (-2.9) / Z-score (-0.8) Right Femur Total: g/cm2 (0.557) / T-score (-3.6) / Z-score (-1.6) Right Femoral Neck: g/cm2 (0.578) / T-score (-3.3) / Z-score (-1.2) The T-Scores on the most recent prior examination were: Lumbar Spine (L1-L4): There has been worsening of bone density since the previous examination. Left Femur Total: which represents a worsening of 16.1%. Right Femur Total: which represents a worsening of 15.5%. HPBD/Dexa Bone Density Study (HP) IMPRESSION: The patient is considered osteoporotic as outlined below according to World Diallo Organization (WHO) criteria with a high fracture risk. There has been worsening of bone density since the previous examination. Reference Information: The T-score is the number of standard deviations above or below the standard which is normal for young adults at their peak bone mineral density. The World Health Organization (WHO) interprets the T-scores as follows: Above -1 Normal bone density Between -1 and -2.5 Osteopenia Equal to / or below -2.5 Osteoporosis As a practical clinical guideline, osteopenia may be graded as follows: Mild -1 through -1.5 Moderate -1.6 through -2.0 Severe -2.1 through -2.4 The Z-score is the number of standard deviations above or below age-matched controls. A Z-score of less than -1.5 would be considered abnormal. References: 1. NIH Osteoporosis and Related Bone Diseases http://www.osteo.org 2. International Society for Clinical Densitometry http://www.iscd.org 3. National Osteoporosis Foundation http://www.nof.org Electronically Signed: Per Frye MD at 11:21 EDT Tel [phone], Service support , CC: Kristie Meadows Child And Youth Program Assistant: Signed Kristie Meadows Work Phone: Start: 03-15-2017 End: 03-15-2017 SCREENING MAMM (CAD), BILAT Comments: See Note; NOTES: [facility] Imaging Services [address] [place] [address] Verdana 4d SCREENING MAMM (CAD), BILAT MR#: [id number] Acct: [id number] Name: JENA COTA Rep #: [id number] : 1940 F 76 From: Per Frye MD PCP: Kristie Meadows Status: REG CLI Study: SCREENING MAMM (CAD), BILAT Date of Exam: 03/15/17 Exam# [id number] Ordering Dr: Kristie Meadows MAMMOGRAPHY - BILATERAL SCREENING REASON FOR EXAM: Female, 76 years old. Routine annual screening examination. PERTINENT HISTORY: Non-contributory. TECHNIQUE: Digital bilateral breast loan (3D mammographic acquisition) in the CC and MLO projections. 2-D mediolateral oblique (MLO) and craniocaudad (CC) views of both breasts were obtained. CAD: Full Field Digital Mammography with Computer Added Detection was performed. COMPARISON: Comparison is made with prior study dated February 01, 2012. FINDINGS: Breast Composition: The breasts are heterogeneously dense, which may obscure small masses. There are no dominant masses or suspicious calcifications. Stable bilateral secretory calcifications. No other significant abnormalities are identified. There has been no significant change since the prior study. HPBI/SCREENING MAMM [...] delay biopsy of a clinically suspicious abnormality. [id number] Electronically Signed: Per Frye MD at 12:44 EDT Tel [phone], Service support , CC: Kristie Meadows Child And Youth Program Assistant: Signed Kristie Meadows Work Phone: Brina Russell LINER WORKER Comment on above: 2022 History of cataract extraction S tatus post cataract extraction John Corbett LPN Comment on above: both Dec 03 2020 and Nov 09 2020 History of cataract extraction S tatus post cataract extraction John Corbett LPN Comment on above: both Dec 03 2020 and Nov 09 2020 History of cataract extraction S tatus post cataract extraction John Corbett LPN Comment on above: both Dec 03 2020 and Nov 09 2020 History of cataract extraction S tatus post cataract extraction John Corbett LPN Comment on above: both Dec 03 2020 and Nov 09 2020 History of cataract extraction S tatus post cataract extraction John Corbett LPN Comment on above: both Dec 03 2020 and Nov 09 2020 History of cataract extraction S tatus post cataract extraction Salma Slarb LINER WORKER Comment on above: both Dec 03 2020 and Nov 09 2020 History of cataract extraction S tatus post cataract extraction Martina Ubaldo HYPNOTHERAPIST Work Phone: History of cataract extraction S tatus post cataract extraction Yessenia Saleh MA Comment on above: both Dec 03 2020 and Nov 09 2020 History of cataract extraction S tatus post cataract extraction Salma Slarb LINER WORKER Comment on above: both Dec 03 2020 and Nov 09 2020 History of cataract extraction S tatus post cataract extraction Salma Slarb LINER WORKER Comment on above: both Dec 03 2020 and Nov 09 2020 Plan of Treatment Date Care Activity Detail Author Start: 04-09-2025 [facility] Start: 12-26-2024 Patient referral [facility] Work Phone: Start: 08-04-2023 Assay of thyroid stimulating hormone tsh TSH (THYROID STIMULATING HORMONE) (23927) [facility]; [facility] Work Phone: Comment on above: 8 weeks Start: 07-12-2023 Comprehensive metabolic panel METABOLIC PANEL, COMPREHENSIVE (30840) : in 6-9 months please [facility]; [facility] Work Phone: Start: 07-12-2023 Procedure Education Eprescribed prescriptions (G8553) [facility]; [facility] Work Phone: Start: 07-12-2023 Provider Instructions for Treatment Follow up in 9 months [facility]; [facility] Work Phone: Start: 07-12-2023 Urinalysis qual/semiquant except immunoassays URINALYSIS (72281) : in 6-9 months please [facility]; [facility] Work Phone: Start: 06-26-2023 Assay of free thyroxine T4, FREE (THYROXINE) (01783) [facility]; [facility] Work Phone: Comment on above: re check in 4-6 weeks Start: 06-26-2023 Assay of thyroid stimulating hormone tsh TSH (THYROID STIMULATING HORMONE) (74881) [facility]; [facility] Work Phone: Comment on above: re check 4-6 weeks Start: 05-17-2023 Patient discharge [facility] Start: 05-17-2023 Care planning and problem solving actions [facility] Start: 05-17-2023 [facility] Start: 05-15-2023 Catheterization of vein [facility] Start: 05-13-2023 Catheterization of vein [facility] Start: 05-13-2023 Following clinical pathway protocol [facility] Start: 05-13-2023 Assessment of risk of venous thromboembolism [facility] Start: 05-13-2023 Insertion of catheter into peripheral vein [facility] Start: 05-13-2023 Providing care according to standard [facility] Start: 05-13-2023 Provision of activity privileges [facility] Start: 05-13-2023 Referral to gastroenterology service [facility] Start: 05-13-2023 Referral to general surgeon [facility] Start: 05-13-2023 Referral to occupational therapist [facility] Start: 05-13-2023 Referral to service [facility] Start: 05-13-2023 [facility] Start: 05-13-2023 Verification routine [facility] Start: 05-13-2023 Admission procedure [facility] Start: 05-13-2023 Following clinical pathway protocol [facility] Start: 05-02-2023 Dual energy X-ray absorptiometry Dexa Bone Density Study [facility] Start: 01-04-2023 Assay of free thyroxine THYROXINE FREE (85238) [facility]; [facility] Work Phone: Start: 01-04-2023 Assay of thyroid stimulating hormone tsh TSH (THYROID STIMULATING HORMONE) (64638) [facility]; [facility] Work Phone: Start: 01-04-2023 Comprehensive metabolic panel METABOLIC PANEL, COMPREHENSIVE (20088) [facility]; [facility] Work Phone: Start: 01-04-2023 Lipid panel LIPID PANEL (32948) [facility]; [facility] Work Phone: Start: 01-04-2023 Procedure Education Eprescribed prescriptions (G8553) [facility]; [facility] Work Phone: Start: 11-04-2022 Antihuman globulin indir qual ea reagent cell QUE TEST, INDIRECT (97306) [facility]; [facility] Work Phone: Start: 11-04-2022 Bilirubin direct BILIRUBIN, DIRECT (40044) [facility]; [facility] Work Phone: Start: 11-04-2022 Blood count complete auto&auto difrntl wbc CBC, PLATELETS & AUT DIFF (69897) : PLEASE DO PERIPHERAL SMEAR [facility]; [facility] Work Phone: Comment on above: PERIPHERAL SMEAR Start: 11-04-2022 Blood count reticulocyte automated RETICULOCYTE COUNT [facility] (27285) [facility]; [facility] Work Phone: Start: 11-04-2022 Blood smear peripheral interp phys w/writ report BLOOD SMEAR INTERPRETATION (85240) [facility]; [facility] Work Phone: Start: 11-04-2022 Smr prim src gram/giemsa stain bct fungi/cell SMEAR+INTERP ROUTN STAIN (53597) [facility]; [facility] Work Phone: Start: 09-05-2022 Procedure Education Eprescribed prescriptions (G8553) [facility]; [facility] Work Phone: Start: 09-05-2022 Provider Instructions for Treatment Follow up in 4 months [facility]; [facility] Work Phone: Start: 09-05-2022 1 25 dihydroxy includes fractions if performed VITAMIN D, 1, 25-DIHYDROXY (89084) [facility]; [facility] Work Phone: Start: 09-05-2022 Assay of free thyroxine T4, FREE (THYROXINE) (85497) [facility]; [facility] Work Phone: Start: 09-05-2022 Assay of thyroid stimulating hormone tsh TSH (THYROID STIMULATING HORMONE) (79600) [facility]; [facility] Work Phone: Start: 09-05-2022 Blood count complete auto&auto difrntl wbc CBC, PLATELETS & AUT DIFF (00352) [facility]; [facility] Work Phone: Start: 09-05-2022 Comprehensive metabolic panel METABOLIC PANEL, COMPREHENSIVE (79346) [facility]; [facility] Work Phone: Comment on above: do around October 2022 Start: 05-02-2022 Procedure Education Eprescribed prescriptions (G8553) [facility]; [facility] Work Phone: Start: 05-02-2022 Provider Instructions for Treatment Follow up in 4 months [facility]; [facility] Work Phone: Start: 05-02-2022 Blood count manual cell count each CBC with auto diff (26861) [facility]; [facility] Work Phone: Start: 05-02-2022 Comprehensive metabolic panel METABOLIC PANEL, COMPREHENSIVE (07893) [facility]; [facility] Work Phone: Start: 05-02-2022 Assay of thyroid stimulating hormone tsh TSH (THYROID STIMULATING HORMONE) (88387) [facility]; [facility] Work Phone: Start: 05-02-2022 Lipid panel LIPID PANEL (91758) [facility]; [facility] Work Phone: Start: 01-21-2022 Procedure Education Eprescribed prescriptions (G8553) [facility]; [facility] Work Phone: Start: 01-21-2022 Provider Instructions for Treatment Follow up in 4 months with [facility] provider [facility]; [facility] Work Phone: Start: 01-14-2022 Procedure Education Eprescribed prescriptions (G8553) [facility]; [facility] Work Phone: Start: 01-14-2022 Provider Instructions for Treatment Follow up in 1 week [facility]; [facility] Work Phone: Start: 01-14-2022 Smr prim src gram/giemsa stain bct fungi/cell SMEAR+INTERP ROUTN STAIN (17396) [facility]; [facility] Work Phone: Start: 01-14-2022 Assay of nephelometry each analyte sharath serum free light chains (07641) [facility]; [facility] Work Phone: Start: 01-14-2022 Immunofixj electrophoresis other fluids urine immunofixation (13479) [facility]; [facility] Work Phone: Start: 01-14-2022 Immunofixj electrophoresis serum serum immunofixation (05678) [facility]; [facility] Work Phone: Start: 01-14-2022 Protein total xcpt refractometry urine UPEP (37835) [facility]; [facility] Work Phone: Start: 01-14-2022 Protein electrophoretic fractj&quantj serum SPEP (82730) [facility]; [facility] Work Phone: Start: 01-14-2022 Blood smear peripheral interp phys w/writ report BLOOD SMEAR INTERPRETATION (91862) [facility]; [facility] Work Phone: Start: 01-07-2022 Procedure Education Eprescribed prescriptions (G8553) [facility]; [facility] Work Phone: Start: 01-07-2022 Provider Instructions for Treatment Follow up - Make appt after diagnostic tests [facility]; [facility] Work Phone: Start: 01-07-2022 Basic metabolic panel calcium total Metabolic Panel, Basic (84223) [facility]; [facility] Work Phone: Start: 01-07-2022 Assay of thyroid stimulating hormone tsh TSH (28380) [facility]; [facility] Work Phone: Start: 01-07-2022 Blood count complete auto&auto difrntl wbc CBC, Platelets & Auto Diff (97007) [facility]; [facility] Work Phone: Start: 12-15-2021 Procedure Education Eprescribed prescriptions (G8553) [facility]; [facility] Work Phone: Start: 12-15-2021 Provider Instructions for Treatment Follow up in 4 months [facility]; [facility] Work Phone: Start: 12-15-2021 Assay of thyroid stimulating hormone tsh TSH (64241) [facility]; [facility] Work Phone: Comment on above: April 2022 Start: 12-15-2021 Blood count complete auto&auto difrntl wbc CBC, Platelets & Auto Diff (10160) [facility]; [facility] Work Phone: Comment on above: April 2022 Start: 12-15-2021 Comprehensive metabolic panel Metabolic Panel, Comprehensive (71200) [facility]; [facility] Work Phone: Comment on above: April 2022 Start: 09-29-2021 Assay of thyroid stimulating hormone tsh TSH (THYROID STIMULATING HORMONE) (72940) [facility]; [facility] Work Phone: Comment on above: to be done end oct Start: 08-25-2021 Procedure Education Eprescribed prescriptions (G8553) [facility]; [facility] Work Phone: Start: 08-25-2021 Provider Instructions for Treatment Follow up after echo completed [facility]; [facility] Work Phone: Start: 08-25-2021 Assay of thyroid stimulating hormone tsh TSH (THYROID STIMULATING HORMONE) (11611) [facility]; [facility] Work Phone: Comment on above: Sep 29 Start: 06-07-2021 Blood count complete auto&auto difrntl wbc CBC with auto diff (15109) [facility]; [facility] Work Phone: Start: 06-07-2021 25 hydroxy includes fractions if performed CALCIFEDIOL (47938) [facility]; [facility] Work Phone: Start: 06-07-2021 Assay of thyroid stimulating hormone tsh TSH (THYROID STIMULATING HORMONE) (40335) [facility]; [facility] Work Phone: Start: 06-07-2021 Comprehensive metabolic panel METABOLIC PANEL, COMPREHENSIVE (70016) [facility]; [facility] Work Phone: Start: 06-07-2021 Lipid panel LIPID PANEL (81044) [facility]; [facility] Work Phone: Start: 04-23-2021 Procedure Education Eprescribed prescriptions (G8553) [facility]; [facility] Work Phone: Start: 04-23-2021 Provider Instructions for Treatment [facility]; [facility] Work Phone: Start: 04-23-2021 Assay of thyroid stimulating hormone tsh TSH (THYROID STIMULATING HORMONE) (76822) [facility]; [facility] Work Phone: Comment on above: Jun 09, 2021 Start: 03-17-2021 Procedure Education Eprescribed prescriptions (G8553) [facility]; [facility] Work Phone: Start: 03-17-2021 Provider Instructions for Treatment COVID SCREENING FORM [facility]; [facility] Work Phone: Start: 12-21-2020 Procedure Education Eprescribed prescriptions (G8553) [facility]; [facility] Work Phone: Start: 12-21-2020 Provider Instructions for Treatment [facility]; [facility] Work Phone: Start: 12-21-2020 Blood count complete auto&auto difrntl wbc CBC, Platelets & Auto Diff (34606) [facility]; [facility] Work Phone: Comment on above: April 2021 Start: 12-21-2020 Comprehensive metabolic panel Metabolic Panel, Comprehensive (12323) [facility]; [facility] Work Phone: Comment on above: April 2021 Start: 12-21-2020 Assay of thyroid stimulating hormone tsh TSH (THYROID STIMULATING HORMONE) (91858) [facility]; [facility] Work Phone: Comment on above: April 2021 February 08 2021 Start: 12-21-2020 TSH Qn TSH (THYROID STIMULATING HORMONE) (68612) [facility]; [facility] Work Phone: Comment on above: April 2021 February 08 2021 Start: 08-19-2020 Procedure Education Eprescribed prescriptions (G8553) [facility] Work Phone: Start: 08-19-2020 Provider Instructions for Treatment [facility] Work Phone: Start: 08-19-2020 Lipid panel LIPID PANEL (42014) [facility] Work Phone: Comment on above: December 2020 Start: 08-19-2020 25 hydroxy includes fractions if performed CALCIFEDIOL (59589) [facility] Work Phone: Comment on above: December 2020 Start: 08-19-2020 Comprehensive metabolic panel Metabolic Panel, Comprehensive (85989) [facility] Work Phone: Comment on above: December 2020 Start: 08-19-2020 Assay of thyroid stimulating hormone tsh TSH (THYROID STIMULATING HORMONE) (81477) [facility]; [facility] Work Phone: Comment on above: December 2020 Start: 08-19-2020 TSH Qn TSH (THYROID STIMULATING HORMONE) (92629) [facility] Work Phone: Comment on above: December 2020 Start: 08-19-2020 Blood count complete auto&auto difrntl wbc CBC, PLATELETS & AUT DIFF (03992) [facility] Work Phone: Comment on above: December 2020 Start: 06-03-2020 Assay of free thyroxine T4, FREE (THYROXINE) (80857) [facility]; [facility] Work Phone: Comment on above: Jul 20 at [place] Start: 06-03-2020 Free T4 [Mass/Vol] T4, FREE (THYROXINE) (57307) [facility] Work Phone: Comment on above: Jul 20 at [facility] Start: 06-03-2020 Assay of triiodothyronine t3 free T3, FREE (TRIDOTHYRONINE) (22020) [facility]; [facility] Work Phone: Comment on above: Jul 20 at [facility] Start: 06-03-2020 Free T3 [Mass/Vol] T3, FREE (TRIDOTHYRONINE) (89781) [facility] Work Phone: Comment on above: Jul 20 at [facility] Start: 06-03-2020 Assay of thyroid stimulating hormone tsh TSH (THYROID STIMULATING HORMONE) (25252) [facility]; [facility] Work Phone: Comment on above: Jul 20 at [facility] Start: 06-03-2020 TSH Qn TSH (THYROID STIMULATING HORMONE) (19120) [facility] Work Phone: Comment on above: Jul 20 at [facility] Start: 06-02-2020 Assay of thyroid stimulating hormone tsh TSH (THYROID STIMULATING HORMONE) (11362) [facility]; [facility] Work Phone: Start: 06-02-2020 TSH Qn TSH (THYROID STIMULATING HORMONE) (93746) [facility] Work Phone: Start: 04-08-2020 Microsomal antibodies each Anti TPO Antibody (46905) [facility] Work Phone: Start: 04-08-2020 Assay of free thyroxine T4, FREE (THYROXINE) (42745) [facility]; [facility] Work Phone: Start: 04-08-2020 Free T4 [Mass/Vol] T4, FREE (THYROXINE) (90471) [facility] Work Phone: Start: 04-08-2020 Assay of triiodothyronine t3 free T3, FREE (TRIDOTHYRONINE) (44607) [facility]; [facility] Work Phone: Start: 04-08-2020 Free T3 [Mass/Vol] T3, FREE (TRIDOTHYRONINE) (43837) [facility] Work Phone: Start: 04-07-2020 Procedure Education Eprescribed prescriptions (G8553) [facility] Work Phone: Start: 04-07-2020 Provider Instructions for Treatment [facility] Work Phone: Start: 03-30-2020 Blood count manual cell count each CBC WITH MANUAL DIFF (89120) [facility] Work Phone: Start: 03-30-2020 Comprehensive metabolic panel Metabolic Panel, [facility] (92100) [facility] Work Phone: Start: 07-10-2019 Procedure Education Eprescribed prescriptions (G8553) [facility] Work Phone: Start: 07-10-2019 Provider Instructions for Treatment [facility] Work Phone: Start: 07-10-2019 Bilirubin [Mass/Vol] BILIRUBIN, TOTAL (53228) [facility] Work Phone: Start: 07-10-2019 Bilirubin total BILIRUBIN, TOTAL (33710) [facility]; [facility] Work Phone: Start: 07-10-2019 Bilirubin direct BILIRUBIN, DIRECT (39629) [facility]; [facility] Work Phone: Start: 07-10-2019 Amylase [Catalytic activity/Vol] AMYLASE (11975) [facility] Work Phone: Start: 07-10-2019 Assay of amylase AMYLASE (54332) [facility]; [facility] Work Phone: Start: 07-10-2019 Assay of lipase LIPASE (40861) [facility]; [facility] Work Phone: Start: 07-10-2019 Bilirubin.direct [Mass/Vol] [facility] Work Phone: Start: 07-02-2019 Lipid panel LIPID PANEL (47611) [facility] Work Phone: Start: 07-02-2019 Assay of thyroid stimulating hormone tsh TSH (THYROID STIMULATING HORMONE) (42543) [facility]; [facility] Work Phone: Start: 07-02-2019 TSH Qn TSH (THYROID STIMULATING HORMONE) (48504) [facility] Work Phone: Start: 07-02-2019 Comprehensive metabolic panel METABOLIC PANEL, COMPREHENSIVE (54049) [facility] Work Phone: Start: 07-02-2019 Blood count complete automated CBC & PLATELETS (AUTO) (16284) [facility] Work Phone: Start: 05-22-2019 Assay of thyroid stimulating hormone tsh TSH (THYROID STIMULATING HORMONE) (60228) [facility]; [facility] Work Phone: Start: 05-22-2019 Thyrotropin Qn TSH (THYROID STIMULATING HORMONE) (26429) [facility] Work Phone: Start: 04-09-2019 Procedure Education Eprescribed prescriptions (G8553) [facility] Work Phone: Start: 04-09-2019 Provider Instructions for Treatment [facility] Work Phone: Start: 03-18-2019 25 hydroxy includes fractions if performed CALCIFEDIOL (26000) [facility] Work Phone: Start: 03-18-2019 Comprehensive metabolic panel Metabolic Panel, [facility] (40582) [facility] Work Phone: Start: 03-18-2019 Lipid panel Lipid Panel (21560) [facility] Work Phone: Start: 03-18-2019 Blood count complete automated CBC & PLATELETS (AUTO) (20673) [facility] Work Phone: Start: 03-18-2019 Assay of thyroid stimulating hormone tsh TSH (THYROID STIMULATING HORMONE) (26419) [facility]; [facility] Work Phone: Start: 03-18-2019 Thyrotropin Qn TSH (THYROID STIMULATING HORMONE) (68382) [facility] Work Phone: Start: 03-04-2019 Assay of thyroid stimulating hormone tsh TSH (THYROID STIMULATING HORMONE) (98532) [facility]; [facility] Work Phone: Start: 03-04-2019 Thyrotropin Qn TSH (THYROID STIMULATING HORMONE) (11336) [facility] Work Phone: Start: 03-01-2019 Culture bct isol&prsmptv id isolate ea urine URINE ERIKA CULTURE-IDENTIFICATN (22608) [facility] Work Phone: Start: 03-01-2019 Glucose mass conc GLUCOSE (61397) [facility] Work Phone: Start: 03-01-2019 Glucose quantitative blood xcpt reagent strip GLUCOSE (46591) [facility]; [facility] Work Phone: Start: 02-27-2019 Procedure Education Eprescribed prescriptions (G8553) [facility] Work Phone: Start: 02-27-2019 Provider Instructions for Treatment Follow up - Make appt after diagnostic tests [facility] Work Phone: Start: 02-27-2019 25 hydroxy includes fractions if performed CALCIFEDIOL (67885) [facility] Work Phone: Start: 02-27-2019 Cobalamin (Vitamin B12) mass conc VITAMIN B12 AND FOLATES (25212) [facility] Work Phone: Start: 02-27-2019 Cyanocobalamin vitamin b-12 VITAMIN B12 AND FOLATES (88510) [facility]; [facility] Work Phone: Start: 02-27-2019 Antinuclear antibodies hola HOLA (ANTINUCLEAR ANTIBODY) (08116) [facility]; [facility] Work Phone: Start: 02-27-2019 Nuclear Ab IF titer (S) HOLA (ANTINUCLEAR ANTIBODY) (03910) [facility] Work Phone: Start: 02-27-2019 aPTT Coag time (Bld) PTT (ACTIVATED PARTIAL THROMBOPLASTIN TIME) (28222) [facility] Work Phone: Start: 02-27-2019 Thromboplastin time partial plasma/whole blood PTT (ACTIVATED PARTIAL THROMBOPLASTIN TIME) (61913) [facility]; [facility] Work Phone: Start: 02-27-2019 Prothrombin time PT (PROTHROMBIN TIME) (28753) [facility]; [facility] Work Phone: Start: 02-27-2019 Prothrombin time (PT) Coag time (PPP) PT (PROTHROMBIN TIME) (04023) [facility] Work Phone: Start: 02-27-2019 Comprehensive metabolic panel Metabolic Panel, [facility] (88912) [facility] Work Phone: Start: 02-27-2019 Assay of thyroid stimulating hormone tsh TSH (38873) [facility]; [facility] Work Phone: Start: 02-27-2019 Thyrotropin Qn TSH (26778) [facility] Work Phone: Start: 02-27-2019 Blood count complete auto&auto difrntl wbc CBC, Platelets & Auto Diff (73708) [facility] Work Phone: Start: 02-27-2019 Culture bct isol&prsmptv id isolate ea urine URINE ERIKA CULTURE-IDENTIFICATN (14830) [facility] Work Phone: Start: 02-27-2019 Urnls dip stick/tablet rgnt non-auto w/o micrscp Urinalysis, Office (81512) [facility] Work Phone: Start: 10-24-2018 Patient Education Common Cold *: runny nose [facility] Work Phone: Start: 10-24-2018 Procedure Education Eprescribed prescriptions (G8553) [facility] Work Phone: Start: 10-24-2018 Provider Instructions for Treatment [facility] Work Phone: Start: 10-15-2018 Procedure Education Eprescribed prescriptions (G8553) [facility] Work Phone: Start: 10-15-2018 Provider Instructions for Treatment [facility] Work Phone: Start: 10-15-2018 Culture bct isol&prsmptv id isolate ea urine URINE ERIKA CULTURE-IDENTIFICATN (60609) [facility] Work Phone: Start: 10-03-2018 Procedure Education Eprescribed prescriptions (G8553) [facility] Work Phone: Start: 10-03-2018 Provider Instructions for Treatment [facility] Work Phone: Start: 09-21-2018 Comprehensive metabolic panel METABOLIC PANEL, COMPREHENSIVE (27154) [facility] Work Phone: Start: 09-21-2018 Blood count complete auto&auto difrntl wbc CBC, PLATELETS & AUT DIFF (92715) [facility] Work Phone: Start: 07-24-2018 Procedure Education Eprescribed prescriptions (G8553) [facility] Work Phone: Start: 07-24-2018 Assay of thyroid stimulating hormone tsh TSH (THYROID STIMULATING HORMONE) (64704) [facility]; [facility] Work Phone: Start: 07-24-2018 Thyrotropin Qn TSH (THYROID STIMULATING HORMONE) (36300) [facility] Work Phone: Start: 07-24-2018 Hepatic function panel HEPATIC FUNCTION PANEL (33352) [facility] Work Phone: Start: 07-24-2018 Smr prim src gram/giemsa stain bct fungi/cell SMEAR+INTERP ROUTN STAIN (79340) [facility] Work Phone: Start: 04-20-2018 Procedure Education Eprescribed prescriptions (G8553) [facility] Work Phone: Start: 04-20-2018 Provider Instructions for Treatment Follow up in 3 months [facility] Work Phone: Start: 04-20-2018 Blood count complete automated CBC & PLATELETS (AUTO) (78625) [facility] Work Phone: Comment on above: Jul 2018 Start: 04-20-2018 Assay of thyroid stimulating hormone tsh TSH (THYROID STIMULATING HORMONE) (24910) [facility]; [facility] Work Phone: Comment on above: Jul 2018 Start: 04-20-2018 Thyrotropin Qn TSH (THYROID STIMULATING HORMONE) (30857) [facility] Work Phone: Comment on above: Jul 2018 Start: 04-03-2018 Procedure Education Eprescribed prescriptions (G8553) [facility] Work Phone: Start: 04-03-2018 Provider Instructions for Treatment [facility] Work Phone: Start: 08-30-2017 Procedure Education Eprescribed prescriptions (G8553) [facility] Work Phone: Start: 08-30-2017 Provider Instructions for Treatment [facility] Work Phone: Start: 04-10-2017 Assay of thyroid stimulating hormone tsh TSH (THYROID STIMULATING HORMONE) (79060) [facility]; [facility] Work Phone: Start: 04-10-2017 Thyrotropin Qn TSH (THYROID STIMULATING HORMONE) (09727) [facility] Work Phone: Start: 03-27-2017 Procedure Education Eprescribed prescriptions (G8553) [facility] Work Phone: Start: 03-27-2017 Provider Instructions for Treatment Follow up if no improvement or if symptoms worsen [facility] Work Phone: Start: 02-24-2017 Procedure Education Eprescribed prescriptions (G8553) [facility] Work Phone: Start: 02-24-2017 Provider Instructions for Treatment [facility] Work Phone: Start: 02-24-2017 25 hydroxy includes fractions if performed CALCIFEDIOL (68539) [facility] Work Phone: Comment on above: Repeat in Aug 2017 Start: 02-24-2017 Assay of thyroid stimulating hormone tsh TSH (THYROID STIMULATING HORMONE) (57967) [facility]; [facility] Work Phone: Comment on above: Repeat Week of 2016 Start: 02-24-2017 Thyrotropin Qn TSH (THYROID STIMULATING HORMONE) (44420) [facility] Work Phone: Comment on above: Repeat Week of 2016 Start: 02-24-2017 Blood count complete auto&auto difrntl wbc CBC, Platelets & Auto Diff (95303) [facility] Work Phone: Comment on above: Aug 2017 Start: 02-15-2017 25 hydroxy includes fractions if performed CALCIFEDIOL (28829) [facility] Work Phone: Start: 02-15-2017 Assay of thyroid stimulating hormone tsh TSH (10620) [facility]; [facility] Work Phone: Start: 02-15-2017 Thyrotropin Qn TSH (21330) [facility] Work Phone: Start: 02-15-2017 Blood count complete auto&auto difrntl wbc CBC, Platelets & Auto Diff (92053) [facility] Work Phone: Start: 02-15-2017 Lipid panel Lipid Panel (92104) [facility] Work Phone: Start: 02-15-2017 Comprehensive metabolic panel Metabolic Panel, Comprehensive (12552) [facility] Work Phone: Start: 12-06-2012 Assay of free thyroxine T4, FREE (THYROXINE) (40926) [facility]; [facility] Work Phone: Start: 12-06-2012 T4 free mass conc T4, FREE (THYROXINE) (41965) [facility] Work Phone: Start: 12-06-2012 Assay of thyroid stimulating hormone tsh TSH (10020) [facility]; [facility] Work Phone: Start: 12-06-2012 Thyrotropin Qn TSH (39649) [facility] Work Phone: Start: 12-06-2012 Assay of triiodothyronine t3 free T3, FREE (TRIDOTHYRONINE) (16865) [facility]; [facility] Work Phone: Start: 12-06-2012 T3 free mass conc T3, FREE (TRIDOTHYRONINE) (87664) [facility] Work Phone: Start: 12-06-2012 Lipid panel Lipid Panel (77476) [facility] Work Phone: Start: 12-06-2012 Comprehensive metabolic panel Metabolic Panel, [facility] (46972) [facility] Work Phone: Start: 12-06-2012 Blood count manual cell count each CBC with manual diff (44861) [facility] Work Phone: Start: 06-07-2012 Assay of thyroid stimulating hormone tsh TSH (87198) [facility]; [facility] Work Phone: Start: 06-07-2012 Thyrotropin Qn TSH (38315) [facility] Work Phone: Start: 02-09-2012 Assay of thyroid stimulating hormone tsh TSH (THYROID STIMULATING HORMONE) (25244) [facility]; [facility] Work Phone: Start: 02-09-2012 Thyrotropin Qn TSH (THYROID STIMULATING HORMONE) (02473) [facility] Work Phone: Start: 04-28-2011 Assay of thyroid stimulating hormone tsh TSH (31666) [facility]; [facility] Work Phone: Start: 04-28-2011 Thyrotropin Qn TSH (84246) [facility] Work Phone: Start: 01-03-2011 Comprehensive metabolic panel METABOLIC PANEL, COMPREHENSIVE (45664) [facility] Work Phone: Start: 01-03-2011 Lipid panel LIPID PANEL (88480) [facility] Work Phone: Start: 01-03-2011 Assay of thyroid stimulating hormone tsh TSH (THYROID STIMULATING HORMONE) (88700) [facility]; [facility] Work Phone: Start: 01-03-2011 Thyrotropin Qn TSH (THYROID STIMULATING HORMONE) (06312) [facility] Work Phone: Start: 01-03-2011 Blood count complete automated CBC & PLATELETS (AUTO) (25276) [facility] Work Phone: Start: 04-29-2009 Calcium urine quantitative timed specimen URINE CALCIUM DONNA TIMED 24 Hour (24385) [facility] Work Phone: Start: 03-12-2009 Provider Instructions for Treatment [facility] Work Phone: Start: 03-06-2009 Provider Instructions for Treatment [facility] Work Phone: Start: 02-13-2007 Provider Instructions for Treatment [facility] Work Phone: Start: 02-13-2007 Comprehensive metabolic panel Metabolic Panel, Comprehensive (33420) [facility] Work Phone: Comment on above: low sodium Start: 02-13-2007 Assay of thyroid stimulating hormone tsh TSH (56123) [facility]; [facility] Work Phone: Start: 02-13-2007 Thyrotropin Qn TSH (87609) [facility] Work Phone: Start: 02-13-2007 Blood count complete auto&auto difrntl wbc CBC, Platelets & Auto Diff (00019) [facility] Work Phone: Patient referral [facility] Work Phone: [facility] Work Phone: [facility] Work Phone[facility] Work Phone: [facility] Work Phone: [facility] Work Phone[facility] Work Phone: [facility] Work Phone: [facility] Work Phone: [facility] Work Phone: [facility] Work Phone: [facility] Work Phone: [facility] Work Phone: [facility] Work Phone: [facility] Work Phone: [facility] Work Phone: [facility] Work Phone[facility] Work Phone[facility] Work Phone: [facility] Work Phone[facility] Work Phone[facility] Work Phone[facility] Work Phone: [facility]; [facility] Work Phone: [facility]; [facility] Work Phone: [facility]; [facility] Work Phone: [facility]; [facility] Work Phone: [facility]; [facility] Work Phone: [facility]; [facility] Work Phone: [facility]; [facility] Work Phone: [facility]; [facility] Work Phone: Immunizations Immunization Date Immunization Notes Care Provider [facility] 07-04-2024 influenza, high dose seasonal, preservative-free Martina Conner [employer] Work Phone: [facility] 07-04-2024 RSV Adult Recombinan t (Arexvy) Martina Conner [employer] Work Phone: [facility] 08-24-2023 Influenza High-Dose Quadrivalent Martina Conner [employer] Work Phone: [facility] 06-24-2022 Covid Moderntiesha Bivale nt Booster Martina Conner [employer] Work Phone: [facility] 06-12-2022 Influenza High-Dose Quadrivalent Martina Conner [employer] Work Phone: [facility] 06-12-2022 influenza, seasonal, injectable Martina Conner HYPNOTHERAPIST Work Phone: [facility]; [facility] Work Phone: 01-24-2022 Covid (Moderna) Martina Antoine am [employer] Work Phone: [facility] 09-02-2021 Covid (Moderna) Martina Antoine am [employer] Work Phone: [facility] 07-01-2021 tetanus toxoid, redu josefa diphtheria toxoid, and acellular pertussis vaccine, adsorbed Kristie Meadows HYPNOTHERAPIST Work Phone: [facility]; [facility] Work Phone: 06-27-2021 influenza, seasonal, injectable Kristie Meadows HYPNOTHERAPIST Work Phone: [facility]; [facility] Work Phone: 12-11-2020 COVID-19 (Moderna) [facility] Mead[facility]; [facility] Work Phone: 11-13-2020 Covid (Moderna) [facility] 06-24-2020 Influenza High-Dose Quadrivalent Martina Antoineam [employer] Work Phone: [facility] 06-24-2020 influenza, seasonal, injectable Kristie Meadows [facility] Work Phone: 05-08-2018 zoster vaccine recombinant Martina Ubaldo [employer] Work Phone: [facility] 02-15-2018 zoster vaccine recombinant Martina Ubaldo [employer] Work Phone: [facility] 02-15-2018 zoster vaccine, live [facility] Work Phone: 08-11-2014 pneumococcal conjuga te vaccine, 13 valent Kristie Meadows [facility] Work Phone: 08-11-2014 zoster vaccine, live [facility] Work Phone: 08-06-2014 pneumococcal polysaccharide vaccine, 23 valent Kristie Meadows [facility] Work Phone: 10-26-2009 novel [id number], preservative-free, injectable Martina Ubaldo [employer] Work Phone: [facility] 10-24-2008 zoster vaccine, live Martina Ubaldo [employer] Work Phone: [facility] 03-25-2008 tetanus toxoid, adsorbed Kristie Meadows [facility] Work Phone: 03-24-2008 tetanus and diphther ia toxoids, adsorbed, preservative free, for adult use (2 Lf of tetanus toxoid and 2 Lf of diphtheria toxoid) [facility] Work Phone: 10-16-1993 hepatitis B vaccine, adult dosage Kristie Meadows [facility] Work Phone: Payers Date Payer Category Payer Self-pay [id number] 2021 Medicare [id number] 2005 Unknown [id number] 2005 Unknown [id number] 2003 Medicare [id number] 1940 Unknown [id number] 2.16.84 [id number] Unknown Unknown [id number] 2.16.8 [id number] Unknown [id number] 2.16.8 [id number] Unknown [id number] 2.16.8 [id number] Unknown [id number] 2.16.8 [id number] Unknown [id number] 2.16.8 [id number] Unknown [id number] 2.16.8 [id number] Unknown [id number] 2.16.8 [id number] Unknown [id number] 2.16.8 [id number] Unknown [id number] 2.16.8 [id number] Unknown [id number] 2.16.8 [id number] Unknown [id number] 2.16.8 [id number] Unknown [id number] 2.16.8 [id number] Social History Date Type Detail Facility Caffeine Use Never smoker [facility] Work Phone: Comment on above: 2 teas qd 1 can diet pepsi qd Moderate , 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 [facility] Work Phone: Comment on above: 02/03/12 Tobacco use: Tobacco use: [facility]; [facility] Work Phone: Comment on above: 02/03/12 Start: 1940 Sex Assigned At Female W [facility] Start: 03-03-2022 End: 06-29-2023 Tobacco smoking status NEIS Unknown if ever smoked [facility] Start: 12-26-2024 End: 04-09-2025 Tobacco smoking status NHIS Never smoked tobacco (finding) [facility] Start: 01-04-2025 Sex Female (finding) [facility] Gender Identity Identifies as fe male gender (finding) [facility] Sexual Orientation Heterosexual (finding) [facility] NEGATED: Highlighted row [facility] Medical Equipment Procedure Code Equipment Code Equipment Original Text Equipment Identifier Dates Total cholecystectomy with exploration of common bile duct Ligation clip, synthetic polymer, non-bioabsorbable [id number] FDA Start: 05-15-2023 Total cholecystectomy with exploration of common bile duct Ligation clip, synthetic polymer, non-bioabsorbable [id number] FDA Start: 05-15-2023 ERCP (endoscopic retrograde cholangiopancreatograph y) STENT,RX PLASTIC BILIARY 10X7 FDA Start: 05-14-2023 ERCP (endoscopic retrograde cholangiopancreatograph y) STENT,RX PLASTIC BILIARY 10X7 FDA Start: 05-14-2023 ERCP (endoscopic retrograde cholangiopancreatograph y) STENT,RX PLASTIC BILIARY 10X7 FDA Start: 05-14-2023 ERCP (endoscopic retrograde cholangiopancreatograph y) STENT,RX PLASTIC BILIARY 10X7 FDA Start: 05-14-2023 ERCP (endoscopic retrograde cholangiopancreatograph y) STENT,RX PLASTIC BILIARY 10X7 FDA Start: 05-14-2023 ERCP (endoscopic retrograde cholangiopancreatograph y) STENT,RX PLASTIC BILIARY 10X7 FDA Start: 05-14-2023 ERCP (endoscopic retrograde cholangiopancreatograph y) STENT,RX PLASTIC BILIARY 10X7 FDA Start: 05-14-2023 ERCP (endoscopic retrograde cholangiopancreatograph y) STENT,RX PLASTIC BILIARY 10X7 FDA Start: 05-14-2023 Goals Date Patient Goal Desired Activity /State Functional Status Date Assessment Result Facility 05-17-2023 Functional status [facility] Work Phone: Mental Status Date Assessment Result Facility 05-17-2023 Cognitive function Level Of Cons ciousness Awake;Alert;Appropriate [facility] Work Phone: 05-17-2023 Cognitive function Voice/Name [facility] Work Phone: 05-13-2023 Cognitive function Level Of Cons ciousness Awake;Alert;Appropriate;Follow s Commands [facility] Work Phone: 05-09-2023 Cognitive function Level Of Cons ciousness Awake;Alert;Appropriate;Follow s Commands [facility] Work Phone: Clinical Notes 05-02-2022 to 04-09-2025 Note Date & Type Note Facility 04-09-2025 Radiology Diagnostic study note [facility] [address] [place], [place] [address] Lumbar Spine 2 or 3 Views MR#: [id number] Acct: [id number] Name: JENA COTA Rep #: [id number] : 1940 F 84 From: Ingris Ojeda MD PCP: Dr. Cayla Caicedo MD Status: REG ER Study:Lumbar Spine 2 or 3 Views Date of Exam: 04/09/25 Exam# [id number] Ordering Dr: Galilea Garcia DO PROCEDURE: LUMBAR SPINE 2 OR 3 VIEWS 04/09/2025 REASON FOR EXAM: PAIN TECHNIQUE: LUMBAR SPINE 2 OR 3 VIEWS COMPARISON: L-spine radiographs 04/07/2025. FINDINGS: Vertebrae: No obvious acute fracture. Mild multilevel vertebral body height loss. Discs: Severe degenerative disc disease, greatest at L4-5. Alignment: Unchanged mild leftward curvature of the lower lumbar spine. Grade 1spondylolisthesis at L3-4 and L4-5. Other: Diffuse bone demineralization. Vascular calcifications. RAD/Lumbar Spine 2 or 3 Views IMPRESSION: ADVANCED DEGENERATIVE CHANGES OF THE LUMBAR SPINE. Reading Location: [facility] CC: Dr. Cayla Caicedo MD; Ihsan Garcia DO ~ Child And Youth Program Assistant: Signed [facility] 04-09-2025 Radiology Diagnostic study note [facility] [address] [place] [address] Hand Min 3 Views MR#: [id number] Acct: [id number] Name: JENA COTA Rep #: [id number] : 1940 F 84 From: Ingris Ojeda MD PCP: Dr. aCyla Caicedo MD Status: PRE ER Study:Hand Min 3 Views Date of Exam: Exam# [id number] Ordering Dr: Dhaval Killian P. PROCEDURE: HAND MIN 3 VIEWS 04/09/2025 REASON FOR EXAM: FALL TECHNIQUE: HAND MIN 3 VIEWS COMPARISON: None. FINDINGS: Bones: Dislocation/subluxation of the right 1st MCP joint. Diffuse osseous demineralization. No obvious acute fracture. Joints: Normal alignment. Moderate degenerative changes. Soft tissues: Mild soft tissue swelling. Other: No radiopaque foreign body. RAD/Hand Min 3 Views IMPRESSION: Dislocation/subluxation of the right 1st MCP joint. Correlation with physical examination recommended. Reading Location: [facility] CC: Dr. Cayla Caicedo MD; ED PHYSICIAN PROVIDER ~ Child And Youth Program Assistant: Signed [facility] 04-07-2025 Radiology Diagnostic study note [facility] [address] [place], [place] [id number] HIP, UNI W/ Pelvis 2-3 Views MR#: [id number] Acct: [id number] Name: JENA COTA ANN Rep #: [id number] : 1940 F 84 From: Sera Dai MD PCP: Dr. Cayla Caicedo MD Status: REG CLI Study:HIP, UNI W/ Pelvis 2-3 Views Date of Ex am: 04/07/25 Exam# [id number] Ordering Dr: [facility] ajit Latif PROCEDURE: HIP, UNI W/ PELVIS 2-3 VIEWS 04/07/2025 REASON FOR EXAM: PAIN FROM FALL TECHNIQUE: HIP, UNI W/ PELVIS 2-3 VIEWS COMPARISON: March 03, 2020 FINDINGS: The hip joints appear intact. SI joints are aligned. The sacral foramina appear intact. There is no visible pelvic fracture. Mineralization is normal. Vascular calcifications are visible. RAD/HIP, UNI W/ Pelvis 2-3 Views IMPRESSION: No fracture or dislocation is identified. Reading Location: [facility] CC: Dr. Cayla Caicedo MD; MAIKEL Hamilton ~ Child And Youth Program Assistant: Signed [facility] 04-07-2025 Radiology Diagnostic study note [facility] [address] [place], [place] [id number] Lumbar Spine 2 or 3 Views MR#: [id number] Acct: [id number] Name: JENA COTA ANN Rep #: [id number] : 1940 F 84 From: Sera Dai MD PCP: Dr. Cayla Caicedo MD Status: REG CLI Study:Lumbar Spine 2 or 3 Views Date of Exam: 04/07/25 Exam# [id number] Ordering Dr: [facility] ajit Latif PROCEDURE: LUMBAR SPINE 2 OR 3 VIEWS 04/07/2025 REASON FOR EXAM: PAIN FROM FALL TECHNIQUE: LUMBAR SPINE 2 OR 3 VIEWS COMPARISON: March 03, 2022 FINDINGS: There is levoscoliosis of the lumbar region with [place] angle = 12 degrees from L3-S1, apex L4. There is grade 1 spondylolisthesis at L2-3, 0.2 cm. There is grade 1 spondylolisthesis at L3-4, 0.2 cm. There is grade 1 spondylolisthesis at L4-5, 0.6 cm. There is loss of disc height which is most severe from L4-S1. There is severe facet sclerosis. Osteopenia is noted. Vascular calcifications are present. RAD/Lumbar Spine 2 or 3 Views IMPRESSION: There is levoscoliosis of the lumbar region with Grove angle = 12 degrees from L3-S1, apex L4. There is grade 1 spondylolisthesis at L2-3, 0.2 cm. There is grade 1 spondylolisthesis at L3-4, 0.2 cm. There is grade 1 spondylolisthesis at L4-5, 0.6 cm. There is loss of disc height which is most severe from L4-S1. Findings are similar to the prior. Reading Location: [facility] CC: Dr. Cayla Caicedo MD; MAIKEL Hamilton ~ Child And Youth Program Assistant: Signed [facility] 12-26-2024 Evaluation note Diagnosis Onset Date Resolution Fatigue acute December 26 8:13am Essential hypertension chronic [facility] 2024 8:13am Mitral valve annular calcification chronic December 26, 2024 8:13am Acquired hypothyroidism noneactive [facility] 2024 8:13am Establishing care with new doctor, encounter for noneactive December 26, 2024 8:13am Osteoporosis noneactive December 26, 2024 8:13am Anxiety noneactive December 26 8:13am Hypothyroidism chronic March 06, 2025 8:11am Osteoporosis chronic March 06 8:11am [facility] Work Phone: 1(682) 440-929203-13-2025 Evaluation note* Diagnosis Onset Date Resolution Status Admit Date Fatigue acute December 26 8:13am Essential hypertension chronic [facility] 2024 8:13am Mitral valve annular calcification chronic December 26, 2024 8:13am Acquired hypothyroidism noneactive [facility] 2024 8:13am Establishing care with new doctor, encounter for noneactive December 8:13am Osteoporosis noneactive December 26, 2024 8:13am Anxiety noneactive December 26 8:13am Hypothyroidism chronic March 06, 2025 8:11am Osteoporosis chronic March 06 8:11am Lumbar radiculopathy acute April 07, 2025 11:25am Lumbar strain acute April 07, 2025 11:25am Strain of left hip acute March 172024 11:25am [facility] Work Phone: 1(338) 446-460412-19-2024 Evaluation note* Diagnosis Onset Date Resolution Status Admit Date Essential hypertension chronic De cember 2023 8:25am Mitral valve annular calcification chronic October 03, 2 024 8:25am Palpitations resolved September 8:25am Hyperlipidemia inactive September 152023 8:25am Fatigue acute December 26 8:13am Essential hypertension chronic [facility] 2024 8:13am Mitral valve annular calcification chronic December 26, 2024 8:13am Acquired hypothyroidism noneactive [facility] 2024 8:13am Establishing care with new doctor, encounter for noneactive December 8:13am Osteoporosis noneactive December 26, 2024 8:13am Anxiety noneactive December 26 8:13am [facility] Work Phone: 1(752) 330-435207-18-2022 Instructions* Name Dates Details How to Access Health Informa tion Online using Patient Portal and [employer] Apps Start:02-May-2022 Instruction Type:Patient Education Patient Instructions Start:02-May-2022 Instruction Type:Provider Instructions for Treatment Patient Instructions Indication:BMI 20.0-20.9, adult Start:21-Jan-2022 Instruction Type:Provider Instructions for Treatment How to Access Health Informa tion Online using Patient Portal and [employer] Apps Indication:BMI 20.0-20.9, adult Start:21-Jan-2022 Instruction Type:Patient Education Patient Instructions Indication:BMI 20.0-20.9, adult Start:14-Jan-2022 Instruction Type:Provider Instructions for Treatment How to Access Health Informa tion Online using Patient Portal and [employer]rd [employer] Apps Indication:BMI 20.0-20.9, adult Start:14-Jan-2022 Instruction Type:Patient Education Patient Instructions Indication:Hypertension Start:07-Jan-2022 Instruction Type:Provider Instructions for Treatment How to Access Health Informa tion Online using Patient Portal and [employer] Apps Start:07-Jan-2022 Instruction Type:Patient Education Patient Instructions Start:15-Dec-2021 Instruction Type:Provider Instructions for Treatment How to Access Health Informa tion Online using Patient Portal and [employer] Apps Start:15-Dec-2021 Instruction Type:Patient Education Patient Instructions Start:25-Aug-2021 Instruction Type:Provider Instructions for Treatment How to Access Health Informa tion Online using Patient Portal and [employer] Apps Start:25-Aug-2021 Instruction Type:Patient Education Patient Instructions Indication:Hypothyroidism Start:23-Apr-2021 Instruction Type:Provider Instructions for Treatment How to Access Health Informa tion Online using Patient Portal and [employer] Apps Start:23-Apr-2021 Instruction Type:Patient Education Patient Instructions Indication:BMI 20.0-20.9, adult Start:17-Mar-2021 Instruction Type:Provider Instructions for Treatment How to Access Health Informa tion Online using Patient Portal and [employer] Apps Start:17-Mar-2021 Instruction Type:Patient Education Patient Instructions Start:21-Dec-2020 Instruction Type:Provider Instructions for Treatment How to Access Health Informa tion Online using Patient Portal and [employer] Apps Start:21-Dec-2020 Instruction Type:Patient Education How to access health informa tion online Start:19-Aug-2020 Instruction Type:Patient Education How to access health informa tion online - Detail Start:19-Aug-2020 Instruction Type:Patient Education Patient Instructions Indication:Vitamin D insufficiency Start:19-Aug-2020 Instruction Type:Provider Instructions for Treatment How to access health informa tion online Start:07-Apr-2020 Instruction Type:Patient Education How to access health informa tion online - Detail Start:07-Apr-2020 Instruction Type:Patient Education Patient Instructions Indication:BMI 20.0-20.9, adult Start:07-Apr-2020 Instruction Type:Provider Instructions for Treatment How to access health informa tion online Start:10-Jul-2019 Instruction Type:Patient Education How to access health informa tion online - Detail Start:10-Jul-2019 Instruction Type:Patient Education Patient Instructions Start:10-Jul-2019 Instruction Type:Provider Instructions for Treatment How to access health informa tion online Indication:BMI 20.0-20.9, adult Start:09-Apr-2019 Instruction Type:Patient Education How to access health informa tion online - Detail Indication:BMI 20.0-20.9, adult Start:09-Apr-2019 Instruction Type:Patient Education Patient Instructions Start:09-Apr-2019 Instruction Type:Provider Instructions for Treatment How to access health informa tion online Indication:Pre-operative general physical examination Start:27-Feb-2019 Instruction Type:Patient Education How to access health informa tion online - Detail Indication:Pre-operative general physical examination Start:27-Feb-2019 Instruction Type:Patient Education Patient Instructions Indication:Pre-operative general physical examination Start:27-Feb-2019 Instruction Type:Provider Instructions for Treatment How to access health informa tion online Start:24-Oct-2018 Instruction Type:Patient Education How to access health informa tion online - Detail Start:24-Oct-2018 Instruction Type:Patient Education Patient Instructions Start:24-Oct-2018 Instruction Type:Provider Instructions for Treatment How to access health informa tion online Start:15-Oct-2018 Instruction Type:Patient Education How to access health informa tion online - Detail Start:15-Oct-2018 Instruction Type:Patient Education Patient Instructions Start:15-Oct-2018 Instruction Type:Provider Instructions for Treatment How to access health informa tion online Start:03-Oct-2018 Instruction Type:Patient Education How to access health informa tion online - Detail Start:03-Oct-2018 Instruction Type:Patient Education Patient Instructions Start:03-Oct-2018 Instruction Type:Provider Instructions for Treatment How to access health informa tion online Start:24-Jul-2018 Instruction Type:Patient Education How to access health informa tion online - Detail Start:24-Jul-2018 Instruction Type:Patient Education Patient Instructions Start:24-Jul-2018 Instruction Type:Provider Instructions for Treatment How to access health informa tion online - Detail Indication:Hypertension Start:20-Apr-2018 Instruction Type:Patient Education How to access health informa tion online Indication:Hypertension Start:20-Apr-2018 Instruction Type:Patient Education Patient Instructions Indication:BMI 20.0-20.9, adult Start:20-Apr-2018 Instruction Type:Provider Instructions for Treatment How to access health informa tion online Indication:Hypothyroidism Start:03-Apr-2018 Instruction Type:Patient Education How to access health informa tion online - Detail Indication:Hypothyroidism Start:03-Apr-2018 Instruction Type:Patient Education Patient Instructions Indication:Hypothyroidism Start:03-Apr-2018 Instruction Type:Provider Instructions for Treatment Patient Instructions Indication:Hypothyroidism Start:30-Aug-2017 Instruction Type:Provider Instructions for Treatment How to access health informa tion online Start:30-Aug-2017 Instruction Type:Patient Education How to access health informa tion online - Detail Start:30-Aug-2017 Instruction Type:Patient Education Patient Instructions Start:30-Aug-2017 Instruction Type:Provider Instructions for Treatment DISCONTINUED - LIPID PANEL ( [id number]) Indication:Hyperlipidemia Start:27-Mar-2017 Instruction Type:Patient Education How to access health informa tion online Indication:Osteoporosis Start:27-Mar-2017 Instruction Type:Patient Education How to access health informa tion online - Detail Indication:Osteoporosis Start:27-Mar-2017 Instruction Type:Patient Education Patient Instructions Indication:Osteoporosis Start:27-Mar-2017 Instruction Type:Provider Instructions for Treatment Patient Instructions Indication:Leukopenia Start:24-Feb-2017 Instruction Type:Provider Instructions for Treatment How to access health informa tion online Indication:Hyperlipidemia Start:24-Feb-2017 Instruction Type:Patient Education How to access health informa tion online Indication:Hyperlipidemia Start:24-Feb-2017 Instruction Type:Patient Education How to access health informa tion online - Detail Indication:Hyperlipidemia Start:24-Feb-2017 Instruction Type:Patient Education Patient Instructions Indication:Leukopenia Start:24-Feb-2017 Instruction Type:Provider Instructions for Treatment [facility] Work Phone: Evaluation noteNo assessment information available [facility] Work Phone: Evaluation note* Diagnosis Onset Date Resolution Status Elevated BP without diagnosis of hypertension acute [facility] Work Phone: Evaluation note* Diagnosis Onset Date Resolution Status Elevated BP without diagnosis of hypertension acute Lumbar back pain with radicu lopathy affecting right lower extremity noneactive [facility] Work Phone: Evaluation note* Diagnosis Onset Date Resolution Status Elevated BP without diagnosis of hypertension acute Lumbar back pain with radicu lopathy affecting right lower extremity noneactive Elevated BP without diagnosis of hypertension acute [facility] Work Phone: Evaluation note* Diagnosis Onset Date Resolution Status Cholecystitis acute Choledocholithiasis acute [facility] Work Phone: Evaluation note* Diagnosis Onset Date Resolution Status Biliary obstruction resolved Cholecystitis resolved Choledocholithiasis resolved S/P ERCP acute S/P laparoscopic cholecystectomy 2022 resolved Essential hypertension chron ic Hyperlipidemia chronic Mitral valve annular calcification chronic [facility] Work Phone: Hospital Discharge instructionsAmbulatory Orders* Endocrinology Location: None Selected [facility] Work Phone: Hospital Discharge instructions Additional Instructions Please wear your thumb spica brace secondary to your thumb pain. Follow-up with orthopedics to discuss if there is any further treatment option. Continue to stretch and heat your low back to reduce pain and speed healing and return to the ER should [facility]: Instructions* Name Dates Details Patient Instructions Indication:BMI 20.0-20.9, adult Start:17-Mar-2021 Instruction Type:Provider Instructions for Treatment How to Access Health Informa tion Online using Patient Portal and [employer] Apps Indication:Nonsmoker Start:17-Mar-2021 Instruction Type:Patient Education Patient Instructions Indication:Nonsmoker Start:21-Dec-2020 Instruction Type:Provider Instructions for Treatment How to Access Health Informa tion Online using Patient Portal and [employer] Apps Indication:Nonsmoker Start:21-Dec-2020 Instruction Type:Patient Education How to access health informa tion online Indication:Nonsmoker Start:19-Aug-2020 Instruction Type:Patient Education How to access health informa tion online - Detail Indication:Nonsmoker Start:19-Aug-2020 Instruction Type:Patient Education Patient Instructions Indication:Vitamin D insufficiency Start:19-Aug-2020 Instruction Type:Provider Instructions for Treatment How to access health informa tion online Indication:Nonsmoker Start:07-Apr-2020 Instruction Type:Patient Education How to access health informa tion online - Detail Indication:Nonsmoker Start:07-Apr-2020 Instruction Type:Patient Education Patient Instructions Indication:BMI 20.0-20.9, adult Start:07-Apr-2020 Instruction Type:Provider Instructions for Treatment How to access health informa tion online Indication:Nonsmoker Start:10-Jul-2019 Instruction Type:Patient Education How to access health informa tion online - Detail Indication:Nonsmoker Start:10-Jul-2019 Instruction Type:Patient Education Patient Instructions Indication:Nonsmoker Start:10-Jul-2019 Instruction Type:Provider Instructions for Treatment How to access health informa tion online Indication:BMI 20.0-20.9, adult Start:09-Apr-2019 Instruction Type:Patient Education How to access health informa tion online - Detail Indication:BMI 20.0-20.9, adult Start:09-Apr-2019 Instruction Type:Patient Education Patient Instructions Indication:Nonsmoker Start:09-Apr-2019 Instruction Type:Provider Instructions for Treatment How to access health informa tion online Indication:Pre-operative general physical examination Start:27-Feb-2019 Instruction Type:Patient Education How to access health informa tion online - Detail Indication:Pre-operative general physical examination Start:27-Feb-2019 Instruction Type:Patient Education Patient Instructions Indication:Pre-operative general physical examination Start:27-Feb-2019 Instruction Type:Provider Instructions for Treatment How to access health informa tion online Indication:Nonsmoker Start:24-Oct-2018 Instruction Type:Patient Education How to access health informa tion online - Detail Indication:Nonsmoker Start:24-Oct-2018 Instruction Type:Patient Education Patient Instructions Indication:Nonsmoker Start:24-Oct-2018 Instruction Type:Provider Instructions for Treatment How to access health informa tion online Indication:Nonsmoker Start:15-Oct-2018 Instruction Type:Patient Education How to access health informa tion online - Detail Indication:Nonsmoker Start:15-Oct-2018 Instruction Type:Patient Education Patient Instructions Indication:Nonsmoker Start:15-Oct-2018 Instruction Type:Provider Instructions for Treatment How to access health informa tion online Indication:Nonsmoker Start:03-Oct-2018 Instruction Type:Patient Education How to access health informa tion online - Detail Indication:Nonsmoker Start:03-Oct-2018 Instruction Type:Patient Education Patient Instructions Indication:Nonsmoker Start:03-Oct-2018 Instruction Type:Provider Instructions for Treatment How to access health informa tion online Indication:Nonsmoker Start:24-Jul-2018 Instruction Type:Patient Education How to access health informa tion online - Detail Indication:Nonsmoker Start:24-Jul-2018 Instruction Type:Patient Education Patient Instructions Indication:Nonsmoker Start:24-Jul-2018 Instruction Type:Provider Instructions for Treatment How to access health informa tion online - Detail Indication:Hypertension Start:20-Apr-2018 Instruction Type:Patient Education How to access health informa tion online Indication:Hypertension Start:20-Apr-2018 Instruction Type:Patient Education Patient Instructions Indication:BMI 20.0-20.9, adult Start:20-Apr-2018 Instruction Type:Provider Instructions for Treatment How to access health informa tion online Indication:Hypothyroidism Start:03-Apr-2018 Instruction Type:Patient Education How to access health informa tion online - Detail Indication:Hypothyroidism Start:03-Apr-2018 Instruction Type:Patient Education Patient Instructions Indication:Hypothyroidism Start:03-Apr-2018 Instruction Type:Provider Instructions for Treatment Patient Instructions Indication:Hypothyroidism Start:30-Aug-2017 Instruction Type:Provider Instructions for Treatment How to access health informa tion online Indication:Nonsmoker Start:30-Aug-2017 Instruction Type:Patient Education How to access health informa tion online - Detail Indication:Nonsmoker Start:30-Aug-2017 Instruction Type:Patient Education Patient Instructions Indication:Nonsmoker Start:30-Aug-2017 Instruction Type:Provider Instructions for Treatment DISCONTINUED - LIPID PANEL ( [id number]) Indication:Hyperlipidemia Start:27-Mar-2017 Instruction Type:Patient Education How to access health informa tion online Indication:Osteoporosis Start:27-Mar-2017 Instruction Type:Patient Education How to access health informa tion online - Detail Indication:Osteoporosis Start:27-Mar-2017 Instruction Type:Patient Education Patient Instructions Indication:Osteoporosis Start:27-Mar-2017 Instruction Type:Provider Instructions for Treatment Patient Instructions Indication:Leukopenia Start:24-Feb-2017 Instruction Type:Provider Instructions for Treatment How to access health informa tion online Indication:Hyperlipidemia Start:24-Feb-2017 Instruction Type:Patient Education How to access health informa tion online Indication:Hyperlipidemia Start:24-Feb-2017 Instruction Type:Patient Education How to access health informa tion online - Detail Indication:Hyperlipidemia Start:24-Feb-2017 Instruction Type:Patient Education Patient Instructions Indication:Leukopenia Start:24-Feb-2017 Instruction Type:Provider Instructions for Treatment [facility]; [facility] Work Phone: Instructions* Name Dates Details Patient Instructions Indication:BMI 20.0-20.9, adult Start:17-Mar-2021 Instruction Type:Provider Instructions for Treatment How to Access Health Informa tion Online using Patient Portal and [employer] Apps Indication:Nonsmoker Start:17-Mar-2021 Instruction Type:Patient Education Patient Instructions Indication:Nonsmoker Start:21-Dec-2020 Instruction Type:Provider Instructions for Treatment How to Access Health Informa tion Online using Patient Portal and [employer] Apps Indication:Nonsmoker Start:21-Dec-2020 Instruction Type:Patient Education How to access health informa tion online Indication:Nonsmoker Start:19-Aug-2020 Instruction Type:Patient Education How to access health informa tion online - Detail Indication:Nonsmoker Start:19-Aug-2020 Instruction Type:Patient Education Patient Instructions Indication:Vitamin D insufficiency Start:19-Aug-2020 Instruction Type:Provider Instructions for Treatment How to access health informa tion online Indication:Nonsmoker Start:07-Apr-2020 Instruction Type:Patient Education How to access health informa tion online - Detail Indication:Nonsmoker Start:07-Apr-2020 Instruction Type:Patient Education Patient Instructions Indication:BMI 20.0-20.9, adult Start:07-Apr-2020 Instruction Type:Provider Instructions for Treatment How to access health informa tion online Indication:Nonsmoker Start:10-Jul-2019 Instruction Type:Patient Education How to access health informa tion online - Detail Indication:Nonsmoker Start:10-Jul-2019 Instruction Type:Patient Education Patient Instructions Indication:Nonsmoker Start:10-Jul-2019 Instruction Type:Provider Instructions for Treatment How to access health informa tion online Indication:BMI 20.0-20.9, adult Start:09-Apr-2019 Instruction Type:Patient Education How to access health informa tion online - Detail Indication:BMI 20.0-20.9, adult Start:09-Apr-2019 Instruction Type:Patient Education Patient Instructions Indication:Nonsmoker Start:09-Apr-2019 Instruction Type:Provider Instructions for Treatment How to access health informa tion online Indication:Pre-operative general physical examination Start:27-Feb-2019 Instruction Type:Patient Education How to access health informa tion online - Detail Indication:Pre-operative general physical examination Start:27-Feb-2019 Instruction Type:Patient Education Patient Instructions Indication:Pre-operative general physical examination Start:27-Feb-2019 Instruction Type:Provider Instructions for Treatment How to access health informa tion online Indication:Nonsmoker Start:24-Oct-2018 Instruction Type:Patient Education How to access health informa tion online - Detail Indication:Nonsmoker Start:24-Oct-2018 Instruction Type:Patient Education Patient Instructions Indication:Nonsmoker Start:24-Oct-2018 Instruction Type:Provider Instructions for Treatment How to access health informa tion online Indication:Nonsmoker Start:15-Oct-2018 Instruction Type:Patient Education How to access health informa tion online - Detail Indication:Nonsmoker Start:15-Oct-2018 Instruction Type:Patient Education Patient Instructions Indication:Nonsmoker Start:15-Oct-2018 Instruction Type:Provider Instructions for Treatment How to access health informa tion online Indication:Nonsmoker Start:03-Oct-2018 Instruction Type:Patient Education How to access health informa tion online - Detail Indication:Nonsmoker Start:03-Oct-2018 Instruction Type:Patient Education Patient Instructions Indication:Nonsmoker Start:03-Oct-2018 Instruction Type:Provider Instructions for Treatment How to access health informa tion online Indication:Nonsmoker Start:24-Jul-2018 Instruction Type:Patient Education How to access health informa tion online - Detail Indication:Nonsmoker Start:24-Jul-2018 Instruction Type:Patient Education Patient Instructions Indication:Nonsmoker Start:24-Jul-2018 Instruction Type:Provider Instructions for Treatment How to access health informa tion online - Detail Indication:Hypertension Start:20-Apr-2018 Instruction Type:Patient Education How to access health informa tion online Indication:Hypertension Start:20-Apr-2018 Instruction Type:Patient Education Patient Instructions Indication:BMI 20.0-20.9, adult Start:20-Apr-2018 Instruction Type:Provider Instructions for Treatment How to access health informa tion online Indication:Hypothyroidism Start:03-Apr-2018 Instruction Type:Patient Education How to access health informa tion online - Detail Indication:Hypothyroidism Start:03-Apr-2018 Instruction Type:Patient Education Patient Instructions Indication:Hypothyroidism Start:03-Apr-2018 Instruction Type:Provider Instructions for Treatment Patient Instructions Indication:Hypothyroidism Start:30-Aug-2017 Instruction Type:Provider Instructions for Treatment How to access health informa tion online Indication:Nonsmoker Start:30-Aug-2017 Instruction Type:Patient Education How to access health informa tion online - Detail Indication:Nonsmoker Start:30-Aug-2017 Instruction Type:Patient Education Patient Instructions Indication:Nonsmoker Start:30-Aug-2017 Instruction Type:Provider Instructions for Treatment DISCONTINUED - LIPID PANEL ( [id number]) Indication:Hyperlipidemia Start:27-Mar-2017 Instruction Type:Patient Education How to access health informa tion online Indication:Osteoporosis Start:27-Mar-2017 Instruction Type:Patient Education How to access health informa tion online - Detail Indication:Osteoporosis Start:27-Mar-2017 Instruction Type:Patient Education Patient Instructions Indication:Osteoporosis Start:27-Mar-2017 Instruction Type:Provider Instructions for Treatment Patient Instructions Indication:Leukopenia Start:24-Feb-2017 Instruction Type:Provider Instructions for Treatment How to access health informa tion online Indication:Hyperlipidemia Start:24-Feb-2017 Instruction Type:Patient Education How to access health informa tion online Indication:Hyperlipidemia Start:24-Feb-2017 Instruction Type:Patient Education How to access health informa tion online - Detail Indication:Hyperlipidemia Start:24-Feb-2017 Instruction Type:Patient Education Patient Instructions Indication:Leukopenia Start:24-Feb-2017 Instruction Type:Provider Instructions for Treatment [facility]; [facility] Work Phone: Instructions* Name Dates Details Patient Instructions Indication:Hypothyroidism Start:23-Apr-2021 Instruction Type:Provider Instructions for Treatment How to Access Health Informa tion Online using Patient Portal and [employer]rd [employer] Apps Indication:Nonsmoker Start:23-Apr-2021 Instruction Type:Patient Education Patient Instructions Indication:BMI 20.0-20.9, adult Start:17-Mar-2021 Instruction Type:Provider Instructions for Treatment How to Access Health Informa tion Online using Patient Portal and [employer]rd [employer] Apps Indication:Nonsmoker Start:17-Mar-2021 Instruction Type:Patient Education Patient Instructions Indication:Nonsmoker Start:21-Dec-2020 Instruction Type:Provider Instructions for Treatment How to Access Health Informa tion Online using Patient Portal and [employer]rd [employer] Apps Indication:Nonsmoker Start:21-Dec-2020 Instruction Type:Patient Education How to access health informa tion online Indication:Nonsmoker Start:19-Aug-2020 Instruction Type:Patient Education How to access health informa tion online - Detail Indication:Nonsmoker Start:19-Aug-2020 Instruction Type:Patient Education Patient Instructions Indication:Vitamin D insufficiency Start:19-Aug-2020 Instruction Type:Provider Instructions for Treatment How to access health informa tion online Indication:Nonsmoker Start:07-Apr-2020 Instruction Type:Patient Education How to access health informa tion online - Detail Indication:Nonsmoker Start:07-Apr-2020 Instruction Type:Patient Education Patient Instructions Indication:BMI 20.0-20.9, adult Start:07-Apr-2020 Instruction Type:Provider Instructions for Treatment How to access health informa tion online Indication:Nonsmoker Start:10-Jul-2019 Instruction Type:Patient Education How to access health informa tion online - Detail Indication:Nonsmoker Start:10-Jul-2019 Instruction Type:Patient Education Patient Instructions Indication:Nonsmoker Start:10-Jul-2019 Instruction Type:Provider Instructions for Treatment How to access health informa tion online Indication:BMI 20.0-20.9, adult Start:09-Apr-2019 Instruction Type:Patient Education How to access health informa tion online - Detail Indication:BMI 20.0-20.9, adult Start:09-Apr-2019 Instruction Type:Patient Education Patient Instructions Indication:Nonsmoker Start:09-Apr-2019 Instruction Type:Provider Instructions for Treatment How to access health informa tion online Indication:Pre-operative general physical examination Start:27-Feb-2019 Instruction Type:Patient Education How to access health informa tion online - Detail Indication:Pre-operative general physical examination Start:27-Feb-2019 Instruction Type:Patient Education Patient Instructions Indication:Pre-operative general physical examination Start:27-Feb-2019 Instruction Type:Provider Instructions for Treatment How to access health informa tion online Indication:Nonsmoker Start:24-Oct-2018 Instruction Type:Patient Education How to access health informa tion online - Detail Indication:Nonsmoker Start:24-Oct-2018 Instruction Type:Patient Education Patient Instructions Indication:Nonsmoker Start:24-Oct-2018 Instruction Type:Provider Instructions for Treatment How to access health informa tion online Indication:Nonsmoker Start:15-Oct-2018 Instruction Type:Patient Education How to access health informa tion online - Detail Indication:Nonsmoker Start:15-Oct-2018 Instruction Type:Patient Education Patient Instructions Indication:Nonsmoker Start:15-Oct-2018 Instruction Type:Provider Instructions for Treatment How to access health informa tion online Indication:Nonsmoker Start:03-Oct-2018 Instruction Type:Patient Education How to access health informa tion online - Detail Indication:Nonsmoker Start:03-Oct-2018 Instruction Type:Patient Education Patient Instructions Indication:Nonsmoker Start:03-Oct-2018 Instruction Type:Provider Instructions for Treatment How to access health informa tion online Indication:Nonsmoker Start:24-Jul-2018 Instruction Type:Patient Education How to access health informa tion online - Detail Indication:Nonsmoker Start:24-Jul-2018 Instruction Type:Patient Education Patient Instructions Indication:Nonsmoker Start:24-Jul-2018 Instruction Type:Provider Instructions for Treatment How to access health informa tion online - Detail Indication:Hypertension Start:20-Apr-2018 Instruction Type:Patient Education How to access health informa tion online Indication:Hypertension Start:20-Apr-2018 Instruction Type:Patient Education Patient Instructions Indication:BMI 20.0-20.9, adult Start:20-Apr-2018 Instruction Type:Provider Instructions for Treatment How to access health informa tion online Indication:Hypothyroidism Start:03-Apr-2018 Instruction Type:Patient Education How to access health informa tion online - Detail Indication:Hypothyroidism Start:03-Apr-2018 Instruction Type:Patient Education Patient Instructions Indication:Hypothyroidism Start:03-Apr-2018 Instruction Type:Provider Instructions for Treatment Patient Instructions Indication:Hypothyroidism Start:30-Aug-2017 Instruction Type:Provider Instructions for Treatment How to access health informa tion online Indication:Nonsmoker Start:30-Aug-2017 Instruction Type:Patient Education How to access health informa tion online - Detail Indication:Nonsmoker Start:30-Aug-2017 Instruction Type:Patient Education Patient Instructions Indication:Nonsmoker Start:30-Aug-2017 Instruction Type:Provider Instructions for Treatment DISCONTINUED - LIPID PANEL ( [id number]) Indication:Hyperlipidemia Start:27-Mar-2017 Instruction Type:Patient Education How to access health informa tion online Indication:Osteoporosis Start:27-Mar-2017 Instruction Type:Patient Education How to access health informa tion online - Detail Indication:Osteoporosis Start:27-Mar-2017 Instruction Type:Patient Education Patient Instructions Indication:Osteoporosis Start:27-Mar-2017 Instruction Type:Provider Instructions for Treatment Patient Instructions Indication:Leukopenia Start:24-Feb-2017 Instruction Type:Provider Instructions for Treatment How to access health informa tion online Indication:Hyperlipidemia Start:24-Feb-2017 Instruction Type:Patient Education How to access health informa tion online Indication:Hyperlipidemia Start:24-Feb-2017 Instruction Type:Patient Education How to access health informa tion online - Detail Indication:Hyperlipidemia Start:24-Feb-2017 Instruction Type:Patient Education Patient Instructions Indication:Leukopenia Start:24-Feb-2017 Instruction Type:Provider Instructions for Treatment [facility]; [facility] Work Phone: Instructions* Name Dates Details Patient Instructions Indication:Nonsmoker Start:25-Aug-2021 Instruction Type:Provider Instructions for Treatment How to Access Health Informa tion Online using Patient Portal and [employer]rd [employer] Apps Indication:Nonsmoker Start:25-Aug-2021 Instruction Type:Patient Education Patient Instructions Indication:Hypothyroidism Start:23-Apr-2021 Instruction Type:Provider Instructions for Treatment How to Access Health Informa tion Online using Patient Portal and [employer] Apps Indication:Nonsmoker Start:23-Apr-2021 Instruction Type:Patient Education Patient Instructions Indication:BMI 20.0-20.9, adult Start:17-Mar-2021 Instruction Type:Provider Instructions for Treatment How to Access Health Informa tion Online using Patient Portal and [employer]rd [employer] Apps Indication:Nonsmoker Start:17-Mar-2021 Instruction Type:Patient Education Patient Instructions Indication:Nonsmoker Start:21-Dec-2020 Instruction Type:Provider Instructions for Treatment How to Access Health Informa tion Online using Patient Portal and [employer]rd [employer] Apps Indication:Nonsmoker Start:21-Dec-2020 Instruction Type:Patient Education How to access health informa tion online Indication:Nonsmoker Start:19-Aug-2020 Instruction Type:Patient Education How to access health informa tion online - Detail Indication:Nonsmoker Start:19-Aug-2020 Instruction Type:Patient Education Patient Instructions Indication:Vitamin D insufficiency Start:19-Aug-2020 Instruction Type:Provider Instructions for Treatment How to access health informa tion online Indication:Nonsmoker Start:07-Apr-2020 Instruction Type:Patient Education How to access health informa tion online - Detail Indication:Nonsmoker Start:07-Apr-2020 Instruction Type:Patient Education Patient Instructions Indication:BMI 20.0-20.9, adult Start:07-Apr-2020 Instruction Type:Provider Instructions for Treatment How to access health informa tion online Indication:Nonsmoker Start:10-Jul-2019 Instruction Type:Patient Education How to access health informa tion online - Detail Indication:Nonsmoker Start:10-Jul-2019 Instruction Type:Patient Education Patient Instructions Indication:Nonsmoker Start:10-Jul-2019 Instruction Type:Provider Instructions for Treatment How to access health informa tion online Indication:BMI 20.0-20.9, adult Start:09-Apr-2019 Instruction Type:Patient Education How to access health informa tion online - Detail Indication:BMI 20.0-20.9, adult Start:09-Apr-2019 Instruction Type:Patient Education Patient Instructions Indication:Nonsmoker Start:09-Apr-2019 Instruction Type:Provider Instructions for Treatment How to access health informa tion online Indication:Pre-operative general physical examination Start:27-Feb-2019 Instruction Type:Patient Education How to access health informa tion online - Detail Indication:Pre-operative general physical examination Start:27-Feb-2019 Instruction Type:Patient Education Patient Instructions Indication:Pre-operative general physical examination Start:27-Feb-2019 Instruction Type:Provider Instructions for Treatment How to access health informa tion online Indication:Nonsmoker Start:24-Oct-2018 Instruction Type:Patient Education How to access health informa tion online - Detail Indication:Nonsmoker Start:24-Oct-2018 Instruction Type:Patient Education Patient Instructions Indication:Nonsmoker Start:24-Oct-2018 Instruction Type:Provider Instructions for Treatment How to access health informa tion online Indication:Nonsmoker Start:15-Oct-2018 Instruction Type:Patient Education How to access health informa tion online - Detail Indication:Nonsmoker Start:15-Oct-2018 Instruction Type:Patient Education Patient Instructions Indication:Nonsmoker Start:15-Oct-2018 Instruction Type:Provider Instructions for Treatment How to access health informa tion online Indication:Nonsmoker Start:03-Oct-2018 Instruction Type:Patient Education How to access health informa tion online - Detail Indication:Nonsmoker Start:03-Oct-2018 Instruction Type:Patient Education Patient Instructions Indication:Nonsmoker Start:03-Oct-2018 Instruction Type:Provider Instructions for Treatment How to access health informa tion online Indication:Nonsmoker Start:24-Jul-2018 Instruction Type:Patient Education How to access health informa tion online - Detail Indication:Nonsmoker Start:24-Jul-2018 Instruction Type:Patient Education Patient Instructions Indication:Nonsmoker Start:24-Jul-2018 Instruction Type:Provider Instructions for Treatment How to access health informa tion online - Detail Indication:Hypertension Start:20-Apr-2018 Instruction Type:Patient Education How to access health informa tion online Indication:Hypertension Start:20-Apr-2018 Instruction Type:Patient Education Patient Instructions Indication:BMI 20.0-20.9, adult Start:20-Apr-2018 Instruction Type:Provider Instructions for Treatment How to access health informa tion online Indication:Hypothyroidism Start:03-Apr-2018 Instruction Type:Patient Education How to access health informa tion online - Detail Indication:Hypothyroidism Start:03-Apr-2018 Instruction Type:Patient Education Patient Instructions Indication:Hypothyroidism Start:03-Apr-2018 Instruction Type:Provider Instructions for Treatment Patient Instructions Indication:Hypothyroidism Start:30-Aug-2017 Instruction Type:Provider Instructions for Treatment How to access health informa tion online Indication:Nonsmoker Start:30-Aug-2017 Instruction Type:Patient Education How to access health informa tion online - Detail Indication:Nonsmoker Start:30-Aug-2017 Instruction Type:Patient Education Patient Instructions Indication:Nonsmoker Start:30-Aug-2017 Instruction Type:Provider Instructions for Treatment DISCONTINUED - LIPID PANEL ( [id number]) Indication:Hyperlipidemia Start:27-Mar-2017 Instruction Type:Patient Education How to access health informa tion online Indication:Osteoporosis Start:27-Mar-2017 Instruction Type:Patient Education How to access health informa tion online - Detail Indication:Osteoporosis Start:27-Mar-2017 Instruction Type:Patient Education Patient Instructions Indication:Osteoporosis Start:27-Mar-2017 Instruction Type:Provider Instructions for Treatment Patient Instructions Indication:Leukopenia Start:24-Feb-2017 Instruction Type:Provider Instructions for Treatment How to access health informa tion online Indication:Hyperlipidemia Start:24-Feb-2017 Instruction Type:Patient Education How to access health informa tion online Indication:Hyperlipidemia Start:24-Feb-2017 Instruction Type:Patient Education How to access health informa tion online - Detail Indication:Hyperlipidemia Start:24-Feb-2017 Instruction Type:Patient Education Patient Instructions Indication:Leukopenia Start:24-Feb-2017 Instruction Type:Provider Instructions for Treatment [facility]; [facility] Work Phone: Instructions* Name Dates Details Patient Instructions Indication:Nonsmoker Start:15-Dec-2021 Instruction Type:Provider Instructions for Treatment How to Access Health Informa tion Online using Patient Portal and [employer]rd [employer] Apps Indication:Nonsmoker Start:15-Dec-2021 Instruction Type:Patient Education Patient Instructions Indication:Nonsmoker Start:25-Aug-2021 Instruction Type:Provider Instructions for Treatment How to Access Health Informa tion Online using Patient Portal and [employer]rd [employer] Apps Indication:Nonsmoker Start:25-Aug-2021 Instruction Type:Patient Education Patient Instructions Indication:Hypothyroidism Start:23-Apr-2021 Instruction Type:Provider Instructions for Treatment How to Access Health Informa tion Online using Patient Portal and [employer]rd [employer] Apps Indication:Nonsmoker Start:23-Apr-2021 Instruction Type:Patient Education Patient Instructions Indication:BMI 20.0-20.9, adult Start:17-Mar-2021 Instruction Type:Provider Instructions for Treatment How to Access Health Informa tion Online using Patient Portal and [employer]rd [employer] Apps Indication:Nonsmoker Start:17-Mar-2021 Instruction Type:Patient Education Patient Instructions Indication:Nonsmoker Start:21-Dec-2020 Instruction Type:Provider Instructions for Treatment How to Access Health Informa tion Online using Patient Portal and [employer] Apps Indication:Nonsmoker Start:21-Dec-2020 Instruction Type:Patient Education How to access health informa tion online Indication:Nonsmoker Start:19-Aug-2020 Instruction Type:Patient Education How to access health informa tion online - Detail Indication:Nonsmoker Start:19-Aug-2020 Instruction Type:Patient Education Patient Instructions Indication:Vitamin D insufficiency Start:19-Aug-2020 Instruction Type:Provider Instructions for Treatment How to access health informa tion online Indication:Nonsmoker Start:07-Apr-2020 Instruction Type:Patient Education How to access health informa tion online - Detail Indication:Nonsmoker Start:07-Apr-2020 Instruction Type:Patient Education Patient Instructions Indication:BMI 20.0-20.9, adult Start:07-Apr-2020 Instruction Type:Provider Instructions for Treatment How to access health informa tion online Indication:Nonsmoker Start:10-Jul-2019 Instruction Type:Patient Education How to access health informa tion online - Detail Indication:Nonsmoker Start:10-Jul-2019 Instruction Type:Patient Education Patient Instructions Indication:Nonsmoker Start:10-Jul-2019 Instruction Type:Provider Instructions for Treatment How to access health informa tion online Indication:BMI 20.0-20.9, adult Start:09-Apr-2019 Instruction Type:Patient Education How to access health informa tion online - Detail Indication:BMI 20.0-20.9, adult Start:09-Apr-2019 Instruction Type:Patient Education Patient Instructions Indication:Nonsmoker Start:09-Apr-2019 Instruction Type:Provider Instructions for Treatment How to access health informa tion online Indication:Pre-operative general physical examination Start:27-Feb-2019 Instruction Type:Patient Education How to access health informa tion online - Detail Indication:Pre-operative general physical examination Start:27-Feb-2019 Instruction Type:Patient Education Patient Instructions Indication:Pre-operative general physical examination Start:27-Feb-2019 Instruction Type:Provider Instructions for Treatment How to access health informa tion online Indication:Nonsmoker Start:24-Oct-2018 Instruction Type:Patient Education How to access health informa tion online - Detail Indication:Nonsmoker Start:24-Oct-2018 Instruction Type:Patient Education Patient Instructions Indication:Nonsmoker Start:24-Oct-2018 Instruction Type:Provider Instructions for Treatment How to access health informa tion online Indication:Nonsmoker Start:15-Oct-2018 Instruction Type:Patient Education How to access health informa tion online - Detail Indication:Nonsmoker Start:15-Oct-2018 Instruction Type:Patient Education Patient Instructions Indication:Nonsmoker Start:15-Oct-2018 Instruction Type:Provider Instructions for Treatment How to access health informa tion online Indication:Nonsmoker Start:03-Oct-2018 Instruction Type:Patient Education How to access health informa tion online - Detail Indication:Nonsmoker Start:03-Oct-2018 Instruction Type:Patient Education Patient Instructions Indication:Nonsmoker Start:03-Oct-2018 Instruction Type:Provider Instructions for Treatment How to access health informa tion online Indication:Nonsmoker Start:24-Jul-2018 Instruction Type:Patient Education How to access health informa tion online - Detail Indication:Nonsmoker Start:24-Jul-2018 Instruction Type:Patient Education Patient Instructions Indication:Nonsmoker Start:24-Jul-2018 Instruction Type:Provider Instructions for Treatment How to access health informa tion online - Detail Indication:Hypertension Start:20-Apr-2018 Instruction Type:Patient Education How to access health informa tion online Indication:Hypertension Start:20-Apr-2018 Instruction Type:Patient Education Patient Instructions Indication:BMI 20.0-20.9, adult Start:20-Apr-2018 Instruction Type:Provider Instructions for Treatment How to access health informa tion online Indication:Hypothyroidism Start:03-Apr-2018 Instruction Type:Patient Education How to access health informa tion online - Detail Indication:Hypothyroidism Start:03-Apr-2018 Instruction Type:Patient Education Patient Instructions Indication:Hypothyroidism Start:03-Apr-2018 Instruction Type:Provider Instructions for Treatment Patient Instructions Indication:Hypothyroidism Start:30-Aug-2017 Instruction Type:Provider Instructions for Treatment How to access health informa tion online Indication:Nonsmoker Start:30-Aug-2017 Instruction Type:Patient Education How to access health informa tion online - Detail Indication:Nonsmoker Start:30-Aug-2017 Instruction Type:Patient Education Patient Instructions Indication:Nonsmoker Start:30-Aug-2017 Instruction Type:Provider Instructions for Treatment DISCONTINUED - LIPID PANEL ( [id number]) Indication:Hyperlipidemia Start:27-Mar-2017 Instruction Type:Patient Education How to access health informa tion online Indication:Osteoporosis Start:27-Mar-2017 Instruction Type:Patient Education How to access health informa tion online - Detail Indication:Osteoporosis Start:27-Mar-2017 Instruction Type:Patient Education Patient Instructions Indication:Osteoporosis Start:27-Mar-2017 Instruction Type:Provider Instructions for Treatment Patient Instructions Indication:Leukopenia Start:24-Feb-2017 Instruction Type:Provider Instructions for Treatment How to access health informa tion online Indication:Hyperlipidemia Start:24-Feb-2017 Instruction Type:Patient Education How to access health informa tion online Indication:Hyperlipidemia Start:24-Feb-2017 Instruction Type:Patient Education How to access health informa tion online - Detail Indication:Hyperlipidemia Start:24-Feb-2017 Instruction Type:Patient Education Patient Instructions Indication:Leukopenia Start:24-Feb-2017 Instruction Type:Provider Instructions for Treatment [facility]; [facility] Work Phone: Instructions* Name Dates Details Patient Instructions Indication:Nonsmoker Start:15-Dec-2021 Instruction Type:Provider Instructions for Treatment How to Access Health Informa tion Online using Patient Portal and [employer] Apps Indication:Nonsmoker Start:15-Dec-2021 Instruction Type:Patient Education Patient Instructions Indication:Nonsmoker Start:25-Aug-2021 Instruction Type:Provider Instructions for Treatment How to Access Health Informa tion Online using Patient Portal and [employer]rd [employer] Apps Indication:Nonsmoker Start:25-Aug-2021 Instruction Type:Patient Education Patient Instructions Indication:Hypothyroidism Start:23-Apr-2021 Instruction Type:Provider Instructions for Treatment How to Access Health Informa tion Online using Patient Portal and [employer]rd [employer] Apps Indication:Nonsmoker Start:23-Apr-2021 Instruction Type:Patient Education Patient Instructions Indication:BMI 20.0-20.9, adult Start:17-Mar-2021 Instruction Type:Provider Instructions for Treatment How to Access Health Informa tion Online using Patient Portal and [employer]rd [employer] Apps Indication:Nonsmoker Start:17-Mar-2021 Instruction Type:Patient Education Patient Instructions Indication:Nonsmoker Start:21-Dec-2020 Instruction Type:Provider Instructions for Treatment How to Access Health Informa tion Online using Patient Portal and [employer]rd [employer] Apps Indication:Nonsmoker Start:21-Dec-2020 Instruction Type:Patient Education How to access health informa tion online Indication:Nonsmoker Start:19-Aug-2020 Instruction Type:Patient Education How to access health informa tion online - Detail Indication:Nonsmoker Start:19-Aug-2020 Instruction Type:Patient Education Patient Instructions Indication:Vitamin D insufficiency Start:19-Aug-2020 Instruction Type:Provider Instructions for Treatment How to access health informa tion online Indication:Nonsmoker Start:07-Apr-2020 Instruction Type:Patient Education How to access health informa tion online - Detail Indication:Nonsmoker Start:07-Apr-2020 Instruction Type:Patient Education Patient Instructions Indication:BMI 20.0-20.9, adult Start:07-Apr-2020 Instruction Type:Provider Instructions for Treatment How to access health informa tion online Indication:Nonsmoker Start:10-Jul-2019 Instruction Type:Patient Education How to access health informa tion online - Detail Indication:Nonsmoker Start:10-Jul-2019 Instruction Type:Patient Education Patient Instructions Indication:Nonsmoker Start:10-Jul-2019 Instruction Type:Provider Instructions for Treatment How to access health informa tion online Indication:BMI 20.0-20.9, adult Start:09-Apr-2019 Instruction Type:Patient Education How to access health informa tion online - Detail Indication:BMI 20.0-20.9, adult Start:09-Apr-2019 Instruction Type:Patient Education Patient Instructions Indication:Nonsmoker Start:09-Apr-2019 Instruction Type:Provider Instructions for Treatment How to access health informa tion online Indication:Pre-operative general physical examination Start:27-Feb-2019 Instruction Type:Patient Education How to access health informa tion online - Detail Indication:Pre-operative general physical examination Start:27-Feb-2019 Instruction Type:Patient Education Patient Instructions Indication:Pre-operative general physical examination Start:27-Feb-2019 Instruction Type:Provider Instructions for Treatment How to access health informa tion online Indication:Nonsmoker Start:24-Oct-2018 Instruction Type:Patient Education How to access health informa tion online - Detail Indication:Nonsmoker Start:24-Oct-2018 Instruction Type:Patient Education Patient Instructions Indication:Nonsmoker Start:24-Oct-2018 Instruction Type:Provider Instructions for Treatment How to access health informa tion online Indication:Nonsmoker Start:15-Oct-2018 Instruction Type:Patient Education How to access health informa tion online - Detail Indication:Nonsmoker Start:15-Oct-2018 Instruction Type:Patient Education Patient Instructions Indication:Nonsmoker Start:15-Oct-2018 Instruction Type:Provider Instructions for Treatment How to access health informa tion online Indication:Nonsmoker Start:03-Oct-2018 Instruction Type:Patient Education How to access health informa tion online - Detail Indication:Nonsmoker Start:03-Oct-2018 Instruction Type:Patient Education Patient Instructions Indication:Nonsmoker Start:03-Oct-2018 Instruction Type:Provider Instructions for Treatment How to access health informa tion online Indication:Nonsmoker Start:24-Jul-2018 Instruction Type:Patient Education How to access health informa tion online - Detail Indication:Nonsmoker Start:24-Jul-2018 Instruction Type:Patient Education Patient Instructions Indication:Nonsmoker Start:24-Jul-2018 Instruction Type:Provider Instructions for Treatment How to access health informa tion online - Detail Indication:Hypertension Start:20-Apr-2018 Instruction Type:Patient Education How to access health informa tion online Indication:Hypertension Start:20-Apr-2018 Instruction Type:Patient Education Patient Instructions Indication:BMI 20.0-20.9, adult Start:20-Apr-2018 Instruction Type:Provider Instructions for Treatment How to access health informa tion online Indication:Hypothyroidism Start:03-Apr-2018 Instruction Type:Patient Education How to access health informa tion online - Detail Indication:Hypothyroidism Start:03-Apr-2018 Instruction Type:Patient Education Patient Instructions Indication:Hypothyroidism Start:03-Apr-2018 Instruction Type:Provider Instructions for Treatment Patient Instructions Indication:Hypothyroidism Start:30-Aug-2017 Instruction Type:Provider Instructions for Treatment How to access health informa tion online Indication:Nonsmoker Start:30-Aug-2017 Instruction Type:Patient Education How to access health informa tion online - Detail Indication:Nonsmoker Start:30-Aug-2017 Instruction Type:Patient Education Patient Instructions Indication:Nonsmoker Start:30-Aug-2017 Instruction Type:Provider Instructions for Treatment DISCONTINUED - LIPID PANEL ( [id number]) Indication:Hyperlipidemia Start:27-Mar-2017 Instruction Type:Patient Education How to access health informa tion online Indication:Osteoporosis Start:27-Mar-2017 Instruction Type:Patient Education How to access health informa tion online - Detail Indication:Osteoporosis Start:27-Mar-2017 Instruction Type:Patient Education Patient Instructions Indication:Osteoporosis Start:27-Mar-2017 Instruction Type:Provider Instructions for Treatment Patient Instructions Indication:Leukopenia Start:24-Feb-2017 Instruction Type:Provider Instructions for Treatment How to access health informa tion online Indication:Hyperlipidemia Start:24-Feb-2017 Instruction Type:Patient Education How to access health informa tion online Indication:Hyperlipidemia Start:24-Feb-2017 Instruction Type:Patient Education How to access health informa tion online - Detail Indication:Hyperlipidemia Start:24-Feb-2017 Instruction Type:Patient Education Patient Instructions Indication:Leukopenia Start:24-Feb-2017 Instruction Type:Provider Instructions for Treatment [facility]; [facility] Work Phone: Instructions* Name Dates Details Patient Instructions Indication:BMI 20.0-20.9, adult Start:21-Jan-2022 Instruction Type:Provider Instructions for Treatment How to Access Health Informa tion Online using Patient Portal and [employer] Apps Indication:BMI 20.0-20.9, adult Start:21-Jan-2022 Instruction Type:Patient Education Patient Instructions Indication:BMI 20.0-20.9, adult Start:14-Jan-2022 Instruction Type:Provider Instructions for Treatment How to Access Health Informa tion Online using Patient Portal and [employer] Apps Indication:BMI 20.0-20.9, adult Start:14-Jan-2022 Instruction Type:Patient Education Patient Instructions Indication:Hypertension Start:07-Jan-2022 Instruction Type:Provider Instructions for Treatment How to Access Health Informa tion Online using Patient Portal and [employer]rd [employer] Apps Indication:Nonsmoker Start:07-Jan-2022 Instruction Type:Patient Education Patient Instructions Indication:Nonsmoker Start:15-Dec-2021 Instruction Type:Provider Instructions for Treatment How to Access Health Informa tion Online using Patient Portal and [employer]rd [employer] Apps Indication:Nonsmoker Start:15-Dec-2021 Instruction Type:Patient Education Patient Instructions Indication:Nonsmoker Start:25-Aug-2021 Instruction Type:Provider Instructions for Treatment How to Access Health Informa tion Online using Patient Portal and [employer]rd [employer] Apps Indication:Nonsmoker Start:25-Aug-2021 Instruction Type:Patient Education Patient Instructions Indication:Hypothyroidism Start:23-Apr-2021 Instruction Type:Provider Instructions for Treatment How to Access Health Informa tion Online using Patient Portal and [employer]rd [employer] Apps Indication:Nonsmoker Start:23-Apr-2021 Instruction Type:Patient Education Patient Instructions Indication:BMI 20.0-20.9, adult Start:17-Mar-2021 Instruction Type:Provider Instructions for Treatment How to Access Health Informa tion Online using Patient Portal and [employer] Apps Indication:Nonsmoker Start:17-Mar-2021 Instruction Type:Patient Education Patient Instructions Indication:Nonsmoker Start:21-Dec-2020 Instruction Type:Provider Instructions for Treatment How to Access Health Informa tion Online using Patient Portal and [employer] Apps Indication:Nonsmoker Start:21-Dec-2020 Instruction Type:Patient Education How to access health informa tion online Indication:Nonsmoker Start:19-Aug-2020 Instruction Type:Patient Education How to access health informa tion online - Detail Indication:Nonsmoker Start:19-Aug-2020 Instruction Type:Patient Education Patient Instructions Indication:Vitamin D insufficiency Start:19-Aug-2020 Instruction Type:Provider Instructions for Treatment How to access health informa tion online Indication:Nonsmoker Start:07-Apr-2020 Instruction Type:Patient Education How to access health informa tion online - Detail Indication:Nonsmoker Start:07-Apr-2020 Instruction Type:Patient Education Patient Instructions Indication:BMI 20.0-20.9, adult Start:07-Apr-2020 Instruction Type:Provider Instructions for Treatment How to access health informa tion online Indication:Nonsmoker Start:10-Jul-2019 Instruction Type:Patient Education How to access health informa tion online - Detail Indication:Nonsmoker Start:10-Jul-2019 Instruction Type:Patient Education Patient Instructions Indication:Nonsmoker Start:10-Jul-2019 Instruction Type:Provider Instructions for Treatment How to access health informa tion online Indication:BMI 20.0-20.9, adult Start:09-Apr-2019 Instruction Type:Patient Education How to access health informa tion online - Detail Indication:BMI 20.0-20.9, adult Start:09-Apr-2019 Instruction Type:Patient Education Patient Instructions Indication:Nonsmoker Start:09-Apr-2019 Instruction Type:Provider Instructions for Treatment How to access health informa tion online Indication:Pre-operative general physical examination Start:27-Feb-2019 Instruction Type:Patient Education How to access health informa tion online - Detail Indication:Pre-operative general physical examination Start:27-Feb-2019 Instruction Type:Patient Education Patient Instructions Indication:Pre-operative general physical examination Start:27-Feb-2019 Instruction Type:Provider Instructions for Treatment How to access health informa tion online Indication:Nonsmoker Start:24-Oct-2018 Instruction Type:Patient Education How to access health informa tion online - Detail Indication:Nonsmoker Start:24-Oct-2018 Instruction Type:Patient Education Patient Instructions Indication:Nonsmoker Start:24-Oct-2018 Instruction Type:Provider Instructions for Treatment How to access health informa tion online Indication:Nonsmoker Start:15-Oct-2018 Instruction Type:Patient Education How to access health informa tion online - Detail Indication:Nonsmoker Start:15-Oct-2018 Instruction Type:Patient Education Patient Instructions Indication:Nonsmoker Start:15-Oct-2018 Instruction Type:Provider Instructions for Treatment How to access health informa tion online Indication:Nonsmoker Start:03-Oct-2018 Instruction Type:Patient Education How to access health informa tion online - Detail Indication:Nonsmoker Start:03-Oct-2018 Instruction Type:Patient Education Patient Instructions Indication:Nonsmoker Start:03-Oct-2018 Instruction Type:Provider Instructions for Treatment How to access health informa tion online Indication:Nonsmoker Start:24-Jul-2018 Instruction Type:Patient Education How to access health informa tion online - Detail Indication:Nonsmoker Start:24-Jul-2018 Instruction Type:Patient Education Patient Instructions Indication:Nonsmoker Start:24-Jul-2018 Instruction Type:Provider Instructions for Treatment How to access health informa tion online - Detail Indication:Hypertension Start:20-Apr-2018 Instruction Type:Patient Education How to access health informa tion online Indication:Hypertension Start:20-Apr-2018 Instruction Type:Patient Education Patient Instructions Indication:BMI 20.0-20.9, adult Start:20-Apr-2018 Instruction Type:Provider Instructions for Treatment How to access health informa tion online Indication:Hypothyroidism Start:03-Apr-2018 Instruction Type:Patient Education How to access health informa tion online - Detail Indication:Hypothyroidism Start:03-Apr-2018 Instruction Type:Patient Education Patient Instructions Indication:Hypothyroidism Start:03-Apr-2018 Instruction Type:Provider Instructions for Treatment Patient Instructions Indication:Hypothyroidism Start:30-Aug-2017 Instruction Type:Provider Instructions for Treatment How to access health informa tion online Indication:Nonsmoker Start:30-Aug-2017 Instruction Type:Patient Education How to access health informa tion online - Detail Indication:Nonsmoker Start:30-Aug-2017 Instruction Type:Patient Education Patient Instructions Indication:Nonsmoker Start:30-Aug-2017 Instruction Type:Provider Instructions for Treatment DISCONTINUED - LIPID PANEL ( [id number]) Indication:Hyperlipidemia Start:27-Mar-2017 Instruction Type:Patient Education How to access health informa tion online Indication:Osteoporosis Start:27-Mar-2017 Instruction Type:Patient Education How to access health informa tion online - Detail Indication:Osteoporosis Start:27-Mar-2017 Instruction Type:Patient Education Patient Instructions Indication:Osteoporosis Start:27-Mar-2017 Instruction Type:Provider Instructions for Treatment Patient Instructions Indication:Leukopenia Start:24-Feb-2017 Instruction Type:Provider Instructions for Treatment How to access health informa tion online Indication:Hyperlipidemia Start:24-Feb-2017 Instruction Type:Patient Education How to access health informa tion online Indication:Hyperlipidemia Start:24-Feb-2017 Instruction Type:Patient Education How to access health informa tion online - Detail Indication:Hyperlipidemia Start:24-Feb-2017 Instruction Type:Patient Education Patient Instructions Indication:Leukopenia Start:24-Feb-2017 Instruction Type:Provider Instructions for Treatment [facility]; [facility] Work Phone: Instructions* Name Dates Details Patient Instructions Indication:BMI 20.0-20.9, adult Start:21-Jan-2022 Instruction Type:Provider Instructions for Treatment How to Access Health Informa tion Online using Patient Portal and [employer] Apps Indication:BMI 20.0-20.9, adult Start:21-Jan-2022 Instruction Type:Patient Education Patient Instructions Indication:BMI 20.0-20.9, adult Start:14-Jan-2022 Instruction Type:Provider Instructions for Treatment How to Access Health Informa tion Online using Patient Portal and [employer] Apps Indication:BMI 20.0-20.9, adult Start:14-Jan-2022 Instruction Type:Patient Education Patient Instructions Indication:Hypertension Start:07-Jan-2022 Instruction Type:Provider Instructions for Treatment How to Access Health Informa tion Online using Patient Portal and [employer] Apps Indication:Nonsmoker Start:07-Jan-2022 Instruction Type:Patient Education Patient Instructions Indication:Nonsmoker Start:15-Dec-2021 Instruction Type:Provider Instructions for Treatment How to Access Health Informa tion Online using Patient Portal and [employer] Apps Indication:Nonsmoker Start:15-Dec-2021 Instruction Type:Patient Education Patient Instructions Indication:Nonsmoker Start:25-Aug-2021 Instruction Type:Provider Instructions for Treatment How to Access Health Informa tion Online using Patient Portal and [employer] Apps Indication:Nonsmoker Start:25-Aug-2021 Instruction Type:Patient Education Patient Instructions Indication:Hypothyroidism Start:23-Apr-2021 Instruction Type:Provider Instructions for Treatment How to Access Health Informa tion Online using Patient Portal and [employer] Apps Indication:Nonsmoker Start:23-Apr-2021 Instruction Type:Patient Education Patient Instructions Indication:BMI 20.0-20.9, adult Start:17-Mar-2021 Instruction Type:Provider Instructions for Treatment How to Access Health Informa tion Online using Patient Portal and [employer] Apps Indication:Nonsmoker Start:17-Mar-2021 Instruction Type:Patient Education Patient Instructions Indication:Nonsmoker Start:21-Dec-2020 Instruction Type:Provider Instructions for Treatment How to Access Health Informa tion Online using Patient Portal and [employer] Apps Indication:Nonsmoker Start:21-Dec-2020 Instruction Type:Patient Education How to access health informa tion online Indication:Nonsmoker Start:19-Aug-2020 Instruction Type:Patient Education How to access health informa tion online - Detail Indication:Nonsmoker Start:19-Aug-2020 Instruction Type:Patient Education Patient Instructions Indication:Vitamin D insufficiency Start:19-Aug-2020 Instruction Type:Provider Instructions for Treatment How to access health informa tion online Indication:Nonsmoker Start:07-Apr-2020 Instruction Type:Patient Education How to access health informa tion online - Detail Indication:Nonsmoker Start:07-Apr-2020 Instruction Type:Patient Education Patient Instructions Indication:BMI 20.0-20.9, adult Start:07-Apr-2020 Instruction Type:Provider Instructions for Treatment How to access health informa tion online Indication:Nonsmoker Start:10-Jul-2019 Instruction Type:Patient Education How to access health informa tion online - Detail Indication:Nonsmoker Start:10-Jul-2019 Instruction Type:Patient Education Patient Instructions Indication:Nonsmoker Start:10-Jul-2019 Instruction Type:Provider Instructions for Treatment How to access health informa tion online Indication:BMI 20.0-20.9, adult Start:09-Apr-2019 Instruction Type:Patient Education How to access health informa tion online - Detail Indication:BMI 20.0-20.9, adult Start:09-Apr-2019 Instruction Type:Patient Education Patient Instructions Indication:Nonsmoker Start:09-Apr-2019 Instruction Type:Provider Instructions for Treatment How to access health informa tion online Indication:Pre-operative general physical examination Start:27-Feb-2019 Instruction Type:Patient Education How to access health informa tion online - Detail Indication:Pre-operative general physical examination Start:27-Feb-2019 Instruction Type:Patient Education Patient Instructions Indication:Pre-operative general physical examination Start:27-Feb-2019 Instruction Type:Provider Instructions for Treatment How to access health informa tion online Indication:Nonsmoker Start:24-Oct-2018 Instruction Type:Patient Education How to access health informa tion online - Detail Indication:Nonsmoker Start:24-Oct-2018 Instruction Type:Patient Education Patient Instructions Indication:Nonsmoker Start:24-Oct-2018 Instruction Type:Provider Instructions for Treatment How to access health informa tion online Indication:Nonsmoker Start:15-Oct-2018 Instruction Type:Patient Education How to access health informa tion online - Detail Indication:Nonsmoker Start:15-Oct-2018 Instruction Type:Patient Education Patient Instructions Indication:Nonsmoker Start:15-Oct-2018 Instruction Type:Provider Instructions for Treatment How to access health informa tion online Indication:Nonsmoker Start:03-Oct-2018 Instruction Type:Patient Education How to access health informa tion online - Detail Indication:Nonsmoker Start:03-Oct-2018 Instruction Type:Patient Education Patient Instructions Indication:Nonsmoker Start:03-Oct-2018 Instruction Type:Provider Instructions for Treatment How to access health informa tion online Indication:Nonsmoker Start:24-Jul-2018 Instruction Type:Patient Education How to access health informa tion online - Detail Indication:Nonsmoker Start:24-Jul-2018 Instruction Type:Patient Education Patient Instructions Indication:Nonsmoker Start:24-Jul-2018 Instruction Type:Provider Instructions for Treatment How to access health informa tion online - Detail Indication:Hypertension Start:20-Apr-2018 Instruction Type:Patient Education How to access health informa tion online Indication:Hypertension Start:20-Apr-2018 Instruction Type:Patient Education Patient Instructions Indication:BMI 20.0-20.9, adult Start:20-Apr-2018 Instruction Type:Provider Instructions for Treatment How to access health informa tion online Indication:Hypothyroidism Start:03-Apr-2018 Instruction Type:Patient Education How to access health informa tion online - Detail Indication:Hypothyroidism Start:03-Apr-2018 Instruction Type:Patient Education Patient Instructions Indication:Hypothyroidism Start:03-Apr-2018 Instruction Type:Provider Instructions for Treatment Patient Instructions Indication:Hypothyroidism Start:30-Aug-2017 Instruction Type:Provider Instructions for Treatment How to access health informa tion online Indication:Nonsmoker Start:30-Aug-2017 Instruction Type:Patient Education How to access health informa tion online - Detail Indication:Nonsmoker Start:30-Aug-2017 Instruction Type:Patient Education Patient Instructions Indication:Nonsmoker Start:30-Aug-2017 Instruction Type:Provider Instructions for Treatment DISCONTINUED - LIPID PANEL ( [id number]) Indication:Hyperlipidemia Start:27-Mar-2017 Instruction Type:Patient Education How to access health informa tion online Indication:Osteoporosis Start:27-Mar-2017 Instruction Type:Patient Education How to access health informa tion online - Detail Indication:Osteoporosis Start:27-Mar-2017 Instruction Type:Patient Education Patient Instructions Indication:Osteoporosis Start:27-Mar-2017 Instruction Type:Provider Instructions for Treatment Patient Instructions Indication:Leukopenia Start:24-Feb-2017 Instruction Type:Provider Instructions for Treatment How to access health informa tion online Indication:Hyperlipidemia Start:24-Feb-2017 Instruction Type:Patient Education How to access health informa tion online Indication:Hyperlipidemia Start:24-Feb-2017 Instruction Type:Patient Education How to access health informa tion online - Detail Indication:Hyperlipidemia Start:24-Feb-2017 Instruction Type:Patient Education Patient Instructions Indication:Leukopenia Start:24-Feb-2017 Instruction Type:Provider Instructions for Treatment [facility]; [facility] Work Phone: Instructions* Name Dates Details Patient Instructions Indication:BMI 20.0-20.9, adult Start:21-Jan-2022 Instruction Type:Provider Instructions for Treatment How to Access Health Informa tion Online using Patient Portal and [employer]rd [employer] Apps Indication:BMI 20.0-20.9, adult Start:21-Jan-2022 Instruction Type:Patient Education Patient Instructions Indication:BMI 20.0-20.9, adult Start:14-Jan-2022 Instruction Type:Provider Instructions for Treatment How to Access Health Informa tion Online using Patient Portal and [employer]rd [employer] Apps Indication:BMI 20.0-20.9, adult Start:14-Jan-2022 Instruction Type:Patient Education Patient Instructions Indication:Hypertension Start:07-Jan-2022 Instruction Type:Provider Instructions for Treatment How to Access Health Informa tion Online using Patient Portal and [employer]rd [employer] Apps Indication:Nonsmoker Start:07-Jan-2022 Instruction Type:Patient Education Patient Instructions Indication:Nonsmoker Start:15-Dec-2021 Instruction Type:Provider Instructions for Treatment How to Access Health Informa tion Online using Patient Portal and [employer]rd [employer] Apps Indication:Nonsmoker Start:15-Dec-2021 Instruction Type:Patient Education Patient Instructions Indication:Nonsmoker Start:25-Aug-2021 Instruction Type:Provider Instructions for Treatment How to Access Health Informa tion Online using Patient Portal and [employer]rd [employer] Apps Indication:Nonsmoker Start:25-Aug-2021 Instruction Type:Patient Education Patient Instructions Indication:Hypothyroidism Start:23-Apr-2021 Instruction Type:Provider Instructions for Treatment How to Access Health Informa tion Online using Patient Portal and [employer]rd [employer] Apps Indication:Nonsmoker Start:23-Apr-2021 Instruction Type:Patient Education Patient Instructions Indication:BMI 20.0-20.9, adult Start:17-Mar-2021 Instruction Type:Provider Instructions for Treatment How to Access Health Informa tion Online using Patient Portal and [employer]rd [employer] Apps Indication:Nonsmoker Start:17-Mar-2021 Instruction Type:Patient Education Patient Instructions Indication:Nonsmoker Start:21-Dec-2020 Instruction Type:Provider Instructions for Treatment How to Access Health Informa tion Online using Patient Portal and [employer] Apps Indication:Nonsmoker Start:21-Dec-2020 Instruction Type:Patient Education How to access health informa tion online Indication:Nonsmoker Start:19-Aug-2020 Instruction Type:Patient Education How to access health informa tion online - Detail Indication:Nonsmoker Start:19-Aug-2020 Instruction Type:Patient Education Patient Instructions Indication:Vitamin D insufficiency Start:19-Aug-2020 Instruction Type:Provider Instructions for Treatment How to access health informa tion online Indication:Nonsmoker Start:07-Apr-2020 Instruction Type:Patient Education How to access health informa tion online - Detail Indication:Nonsmoker Start:07-Apr-2020 Instruction Type:Patient Education Patient Instructions Indication:BMI 20.0-20.9, adult Start:07-Apr-2020 Instruction Type:Provider Instructions for Treatment How to access health informa tion online Indication:Nonsmoker Start:10-Jul-2019 Instruction Type:Patient Education How to access health informa tion online - Detail Indication:Nonsmoker Start:10-Jul-2019 Instruction Type:Patient Education Patient Instructions Indication:Nonsmoker Start:10-Jul-2019 Instruction Type:Provider Instructions for Treatment How to access health informa tion online Indication:BMI 20.0-20.9, adult Start:09-Apr-2019 Instruction Type:Patient Education How to access health informa tion online - Detail Indication:BMI 20.0-20.9, adult Start:09-Apr-2019 Instruction Type:Patient Education Patient Instructions Indication:Nonsmoker Start:09-Apr-2019 Instruction Type:Provider Instructions for Treatment How to access health informa tion online Indication:Pre-operative general physical examination Start:27-Feb-2019 Instruction Type:Patient Education How to access health informa tion online - Detail Indication:Pre-operative general physical examination Start:27-Feb-2019 Instruction Type:Patient Education Patient Instructions Indication:Pre-operative general physical examination Start:27-Feb-2019 Instruction Type:Provider Instructions for Treatment How to access health informa tion online Indication:Nonsmoker Start:24-Oct-2018 Instruction Type:Patient Education How to access health informa tion online - Detail Indication:Nonsmoker Start:24-Oct-2018 Instruction Type:Patient Education Patient Instructions Indication:Nonsmoker Start:24-Oct-2018 Instruction Type:Provider Instructions for Treatment How to access health informa tion online Indication:Nonsmoker Start:15-Oct-2018 Instruction Type:Patient Education How to access health informa tion online - Detail Indication:Nonsmoker Start:15-Oct-2018 Instruction Type:Patient Education Patient Instructions Indication:Nonsmoker Start:15-Oct-2018 Instruction Type:Provider Instructions for Treatment How to access health informa tion online Indication:Nonsmoker Start:03-Oct-2018 Instruction Type:Patient Education How to access health informa tion online - Detail Indication:Nonsmoker Start:03-Oct-2018 Instruction Type:Patient Education Patient Instructions Indication:Nonsmoker Start:03-Oct-2018 Instruction Type:Provider Instructions for Treatment How to access health informa tion online Indication:Nonsmoker Start:24-Jul-2018 Instruction Type:Patient Education How to access health informa tion online - Detail Indication:Nonsmoker Start:24-Jul-2018 Instruction Type:Patient Education Patient Instructions Indication:Nonsmoker Start:24-Jul-2018 Instruction Type:Provider Instructions for Treatment How to access health informa tion online - Detail Indication:Hypertension Start:20-Apr-2018 Instruction Type:Patient Education How to access health informa tion online Indication:Hypertension Start:20-Apr-2018 Instruction Type:Patient Education Patient Instructions Indication:BMI 20.0-20.9, adult Start:20-Apr-2018 Instruction Type:Provider Instructions for Treatment How to access health informa tion online Indication:Hypothyroidism Start:03-Apr-2018 Instruction Type:Patient Education How to access health informa tion online - Detail Indication:Hypothyroidism Start:03-Apr-2018 Instruction Type:Patient Education Patient Instructions Indication:Hypothyroidism Start:03-Apr-2018 Instruction Type:Provider Instructions for Treatment Patient Instructions Indication:Hypothyroidism Start:30-Aug-2017 Instruction Type:Provider Instructions for Treatment How to access health informa tion online Indication:Nonsmoker Start:30-Aug-2017 Instruction Type:Patient Education How to access health informa tion online - Detail Indication:Nonsmoker Start:30-Aug-2017 Instruction Type:Patient Education Patient Instructions Indication:Nonsmoker Start:30-Aug-2017 Instruction Type:Provider Instructions for Treatment DISCONTINUED - LIPID PANEL ( [id number]) Indication:Hyperlipidemia Start:27-Mar-2017 Instruction Type:Patient Education How to access health informa tion online Indication:Osteoporosis Start:27-Mar-2017 Instruction Type:Patient Education How to access health informa tion online - Detail Indication:Osteoporosis Start:27-Mar-2017 Instruction Type:Patient Education Patient Instructions Indication:Osteoporosis Start:27-Mar-2017 Instruction Type:Provider Instructions for Treatment Patient Instructions Indication:Leukopenia Start:24-Feb-2017 Instruction Type:Provider Instructions for Treatment How to access health informa tion online Indication:Hyperlipidemia Start:24-Feb-2017 Instruction Type:Patient Education How to access health informa tion online Indication:Hyperlipidemia Start:24-Feb-2017 Instruction Type:Patient Education How to access health informa tion online - Detail Indication:Hyperlipidemia Start:24-Feb-2017 Instruction Type:Patient Education Patient Instructions Indication:Leukopenia Start:24-Feb-2017 Instruction Type:Provider Instructions for Treatment [facility]; [facility] Work Phone: Instructions* Name Dates Details How to Access Health Informa tion Online using Patient Portal and [employer]rd [employer] Apps Indication:Nonsmoker Start:02-May-2022 Instruction Type:Patient Education Patient Instructions Indication:Nonsmoker Start:02-May-2022 Instruction Type:Provider Instructions for Treatment Patient Instructions Indication:BMI 20.0-20.9, adult Start:21-Jan-2022 Instruction Type:Provider Instructions for Treatment How to Access Health Informa tion Online using Patient Portal and [employer]rd [employer] Apps Indication:BMI 20.0-20.9, adult Start:21-Jan-2022 Instruction Type:Patient Education Patient Instructions Indication:BMI 20.0-20.9, adult Start:14-Jan-2022 Instruction Type:Provider Instructions for Treatment How to Access Health Informa tion Online using Patient Portal and [employer] Apps Indication:BMI 20.0-20.9, adult Start:14-Jan-2022 Instruction Type:Patient Education Patient Instructions Indication:Hypertension Start:07-Jan-2022 Instruction Type:Provider Instructions for Treatment How to Access Health Informa tion Online using Patient Portal and [employer]rd [employer] Apps Indication:Nonsmoker Start:07-Jan-2022 Instruction Type:Patient Education Patient Instructions Indication:Nonsmoker Start:15-Dec-2021 Instruction Type:Provider Instructions for Treatment How to Access Health Informa tion Online using Patient Portal and [employer]rd [employer] Apps Indication:Nonsmoker Start:15-Dec-2021 Instruction Type:Patient Education Patient Instructions Indication:Nonsmoker Start:25-Aug-2021 Instruction Type:Provider Instructions for Treatment How to Access Health Informa tion Online using Patient Portal and [employer]rd [employer] Apps Indication:Nonsmoker Start:25-Aug-2021 Instruction Type:Patient Education Patient Instructions Indication:Hypothyroidism Start:23-Apr-2021 Instruction Type:Provider Instructions for Treatment How to Access Health Informa tion Online using Patient Portal and [employer]rd [employer] Apps Indication:Nonsmoker Start:23-Apr-2021 Instruction Type:Patient Education Patient Instructions Indication:BMI 20.0-20.9, adult Start:17-Mar-2021 Instruction Type:Provider Instructions for Treatment How to Access Health Informa tion Online using Patient Portal and [employer] Apps Indication:Nonsmoker Start:17-Mar-2021 Instruction Type:Patient Education Patient Instructions Indication:Nonsmoker Start:21-Dec-2020 Instruction Type:Provider Instructions for Treatment How to Access Health Informa tion Online using Patient Portal and [employer] Apps Indication:Nonsmoker Start:21-Dec-2020 Instruction Type:Patient Education How to access health informa tion online Indication:Nonsmoker Start:19-Aug-2020 Instruction Type:Patient Education How to access health informa tion online - Detail Indication:Nonsmoker Start:19-Aug-2020 Instruction Type:Patient Education Patient Instructions Indication:Vitamin D insufficiency Start:19-Aug-2020 Instruction Type:Provider Instructions for Treatment How to access health informa tion online Indication:Nonsmoker Start:07-Apr-2020 Instruction Type:Patient Education How to access health informa tion online - Detail Indication:Nonsmoker Start:07-Apr-2020 Instruction Type:Patient Education Patient Instructions Indication:BMI 20.0-20.9, adult Start:07-Apr-2020 Instruction Type:Provider Instructions for Treatment How to access health informa tion online Indication:Nonsmoker Start:10-Jul-2019 Instruction Type:Patient Education How to access health informa tion online - Detail Indication:Nonsmoker Start:10-Jul-2019 Instruction Type:Patient Education Patient Instructions Indication:Nonsmoker Start:10-Jul-2019 Instruction Type:Provider Instructions for Treatment How to access health informa tion online Indication:BMI 20.0-20.9, adult Start:09-Apr-2019 Instruction Type:Patient Education How to access health informa tion online - Detail Indication:BMI 20.0-20.9, adult Start:09-Apr-2019 Instruction Type:Patient Education Patient Instructions Indication:Nonsmoker Start:09-Apr-2019 Instruction Type:Provider Instructions for Treatment How to access health informa tion online Indication:Pre-operative general physical examination Start:27-Feb-2019 Instruction Type:Patient Education How to access health informa tion online - Detail Indication:Pre-operative general physical examination Start:27-Feb-2019 Instruction Type:Patient Education Patient Instructions Indication:Pre-operative general physical examination Start:27-Feb-2019 Instruction Type:Provider Instructions for Treatment How to access health informa tion online Indication:Nonsmoker Start:24-Oct-2018 Instruction Type:Patient Education How to access health informa tion online - Detail Indication:Nonsmoker Start:24-Oct-2018 Instruction Type:Patient Education Patient Instructions Indication:Nonsmoker Start:24-Oct-2018 Instruction Type:Provider Instructions for Treatment How to access health informa tion online Indication:Nonsmoker Start:15-Oct-2018 Instruction Type:Patient Education How to access health informa tion online - Detail Indication:Nonsmoker Start:15-Oct-2018 Instruction Type:Patient Education Patient Instructions Indication:Nonsmoker Start:15-Oct-2018 Instruction Type:Provider Instructions for Treatment How to access health informa tion online Indication:Nonsmoker Start:03-Oct-2018 Instruction Type:Patient Education How to access health informa tion online - Detail Indication:Nonsmoker Start:03-Oct-2018 Instruction Type:Patient Education Patient Instructions Indication:Nonsmoker Start:03-Oct-2018 Instruction Type:Provider Instructions for Treatment How to access health informa tion online Indication:Nonsmoker Start:24-Jul-2018 Instruction Type:Patient Education How to access health informa tion online - Detail Indication:Nonsmoker Start:24-Jul-2018 Instruction Type:Patient Education Patient Instructions Indication:Nonsmoker Start:24-Jul-2018 Instruction Type:Provider Instructions for Treatment How to access health informa tion online - Detail Indication:Hypertension Start:20-Apr-2018 Instruction Type:Patient Education How to access health informa tion online Indication:Hypertension Start:20-Apr-2018 Instruction Type:Patient Education Patient Instructions Indication:BMI 20.0-20.9, adult Start:20-Apr-2018 Instruction Type:Provider Instructions for Treatment How to access health informa tion online Indication:Hypothyroidism Start:03-Apr-2018 Instruction Type:Patient Education How to access health informa tion online - Detail Indication:Hypothyroidism Start:03-Apr-2018 Instruction Type:Patient Education Patient Instructions Indication:Hypothyroidism Start:03-Apr-2018 Instruction Type:Provider Instructions for Treatment Patient Instructions Indication:Hypothyroidism Start:30-Aug-2017 Instruction Type:Provider Instructions for Treatment How to access health informa tion online Indication:Nonsmoker Start:30-Aug-2017 Instruction Type:Patient Education How to access health informa tion online - Detail Indication:Nonsmoker Start:30-Aug-2017 Instruction Type:Patient Education Patient Instructions Indication:Nonsmoker Start:30-Aug-2017 Instruction Type:Provider Instructions for Treatment DISCONTINUED - LIPID PANEL ( [id number]) Indication:Hyperlipidemia Start:27-Mar-2017 Instruction Type:Patient Education How to access health informa tion online Indication:Osteoporosis Start:27-Mar-2017 Instruction Type:Patient Education How to access health informa tion online - Detail Indication:Osteoporosis Start:27-Mar-2017 Instruction Type:Patient Education Patient Instructions Indication:Osteoporosis Start:27-Mar-2017 Instruction Type:Provider Instructions for Treatment Patient Instructions Indication:Leukopenia Start:24-Feb-2017 Instruction Type:Provider Instructions for Treatment How to access health informa tion online Indication:Hyperlipidemia Start:24-Feb-2017 Instruction Type:Patient Education How to access health informa tion online Indication:Hyperlipidemia Start:24-Feb-2017 Instruction Type:Patient Education How to access health informa tion online - Detail Indication:Hyperlipidemia Start:24-Feb-2017 Instruction Type:Patient Education Patient Instructions Indication:Leukopenia Start:24-Feb-2017 Instruction Type:Provider Instructions for Treatment [facility]; [facility] Work Phone: Instructions* Name Dates Details How to Access Health Informa tion Online using Patient Portal and [employer] Apps Indication:Nonsmoker Start:02-May-2022 Instruction Type:Patient Education Patient Instructions Indication:Nonsmoker Start:02-May-2022 Instruction Type:Provider Instructions for Treatment Patient Instructions Indication:BMI 20.0-20.9, adult Start:21-Jan-2022 Instruction Type:Provider Instructions for Treatment How to Access Health Informa tion Online using Patient Portal and [employer]rd [employer] Apps Indication:BMI 20.0-20.9, adult Start:21-Jan-2022 Instruction Type:Patient Education Patient Instructions Indication:BMI 20.0-20.9, adult Start:14-Jan-2022 Instruction Type:Provider Instructions for Treatment How to Access Health Informa tion Online using Patient Portal and [employer]rd [employer] Apps Indication:BMI 20.0-20.9, adult Start:14-Jan-2022 Instruction Type:Patient Education Patient Instructions Indication:Hypertension Start:07-Jan-2022 Instruction Type:Provider Instructions for Treatment How to Access Health Informa tion Online using Patient Portal and [employer] Apps Indication:Nonsmoker Start:07-Jan-2022 Instruction Type:Patient Education Patient Instructions Indication:Nonsmoker Start:15-Dec-2021 Instruction Type:Provider Instructions for Treatment How to Access Health Informa tion Online using Patient Portal and [employer] Apps Indication:Nonsmoker Start:15-Dec-2021 Instruction Type:Patient Education Patient Instructions Indication:Nonsmoker Start:25-Aug-2021 Instruction Type:Provider Instructions for Treatment How to Access Health Informa tion Online using Patient Portal and [employer] Apps Indication:Nonsmoker Start:25-Aug-2021 Instruction Type:Patient Education Patient Instructions Indication:Hypothyroidism Start:23-Apr-2021 Instruction Type:Provider Instructions for Treatment How to Access Health Informa tion Online using Patient Portal and [employer] Apps Indication:Nonsmoker Start:23-Apr-2021 Instruction Type:Patient Education Patient Instructions Indication:BMI 20.0-20.9, adult Start:17-Mar-2021 Instruction Type:Provider Instructions for Treatment How to Access Health Informa tion Online using Patient Portal and [employer] Apps Indication:Nonsmoker Start:17-Mar-2021 Instruction Type:Patient Education Patient Instructions Indication:Nonsmoker Start:21-Dec-2020 Instruction Type:Provider Instructions for Treatment How to Access Health Informa tion Online using Patient Portal and [employer] Apps Indication:Nonsmoker Start:21-Dec-2020 Instruction Type:Patient Education How to access health informa tion online Indication:Nonsmoker Start:19-Aug-2020 Instruction Type:Patient Education How to access health informa tion online - Detail Indication:Nonsmoker Start:19-Aug-2020 Instruction Type:Patient Education Patient Instructions Indication:Vitamin D insufficiency Start:19-Aug-2020 Instruction Type:Provider Instructions for Treatment How to access health informa tion online Indication:Nonsmoker Start:07-Apr-2020 Instruction Type:Patient Education How to access health informa tion online - Detail Indication:Nonsmoker Start:07-Apr-2020 Instruction Type:Patient Education Patient Instructions Indication:BMI 20.0-20.9, adult Start:07-Apr-2020 Instruction Type:Provider Instructions for Treatment How to access health informa tion online Indication:Nonsmoker Start:10-Jul-2019 Instruction Type:Patient Education How to access health informa tion online - Detail Indication:Nonsmoker Start:10-Jul-2019 Instruction Type:Patient Education Patient Instructions Indication:Nonsmoker Start:10-Jul-2019 Instruction Type:Provider Instructions for Treatment How to access health informa tion online Indication:BMI 20.0-20.9, adult Start:09-Apr-2019 Instruction Type:Patient Education How to access health informa tion online - Detail Indication:BMI 20.0-20.9, adult Start:09-Apr-2019 Instruction Type:Patient Education Patient Instructions Indication:Nonsmoker Start:09-Apr-2019 Instruction Type:Provider Instructions for Treatment How to access health informa tion online Indication:Pre-operative general physical examination Start:27-Feb-2019 Instruction Type:Patient Education How to access health informa tion online - Detail Indication:Pre-operative general physical examination Start:27-Feb-2019 Instruction Type:Patient Education Patient Instructions Indication:Pre-operative general physical examination Start:27-Feb-2019 Instruction Type:Provider Instructions for Treatment How to access health informa tion online Indication:Nonsmoker Start:24-Oct-2018 Instruction Type:Patient Education How to access health informa tion online - Detail Indication:Nonsmoker Start:24-Oct-2018 Instruction Type:Patient Education Patient Instructions Indication:Nonsmoker Start:24-Oct-2018 Instruction Type:Provider Instructions for Treatment How to access health informa tion online Indication:Nonsmoker Start:15-Oct-2018 Instruction Type:Patient Education How to access health informa tion online - Detail Indication:Nonsmoker Start:15-Oct-2018 Instruction Type:Patient Education Patient Instructions Indication:Nonsmoker Start:15-Oct-2018 Instruction Type:Provider Instructions for Treatment How to access health informa tion online Indication:Nonsmoker Start:03-Oct-2018 Instruction Type:Patient Education How to access health informa tion online - Detail Indication:Nonsmoker Start:03-Oct-2018 Instruction Type:Patient Education Patient Instructions Indication:Nonsmoker Start:03-Oct-2018 Instruction Type:Provider Instructions for Treatment How to access health informa tion online Indication:Nonsmoker Start:24-Jul-2018 Instruction Type:Patient Education How to access health informa tion online - Detail Indication:Nonsmoker Start:24-Jul-2018 Instruction Type:Patient Education Patient Instructions Indication:Nonsmoker Start:24-Jul-2018 Instruction Type:Provider Instructions for Treatment How to access health informa tion online - Detail Indication:Hypertension Start:20-Apr-2018 Instruction Type:Patient Education How to access health informa tion online Indication:Hypertension Start:20-Apr-2018 Instruction Type:Patient Education Patient Instructions Indication:BMI 20.0-20.9, adult Start:20-Apr-2018 Instruction Type:Provider Instructions for Treatment How to access health informa tion online Indication:Hypothyroidism Start:03-Apr-2018 Instruction Type:Patient Education How to access health informa tion online - Detail Indication:Hypothyroidism Start:03-Apr-2018 Instruction Type:Patient Education Patient Instructions Indication:Hypothyroidism Start:03-Apr-2018 Instruction Type:Provider Instructions for Treatment Patient Instructions Indication:Hypothyroidism Start:30-Aug-2017 Instruction Type:Provider Instructions for Treatment How to access health informa tion online Indication:Nonsmoker Start:30-Aug-2017 Instruction Type:Patient Education How to access health informa tion online - Detail Indication:Nonsmoker Start:30-Aug-2017 Instruction Type:Patient Education Patient Instructions Indication:Nonsmoker Start:30-Aug-2017 Instruction Type:Provider Instructions for Treatment DISCONTINUED - LIPID PANEL ( [id number]) Indication:Hyperlipidemia Start:27-Mar-2017 Instruction Type:Patient Education How to access health informa tion online Indication:Osteoporosis Start:27-Mar-2017 Instruction Type:Patient Education How to access health informa tion online - Detail Indication:Osteoporosis Start:27-Mar-2017 Instruction Type:Patient Education Patient Instructions Indication:Osteoporosis Start:27-Mar-2017 Instruction Type:Provider Instructions for Treatment Patient Instructions Indication:Leukopenia Start:24-Feb-2017 Instruction Type:Provider Instructions for Treatment How to access health informa tion online Indication:Hyperlipidemia Start:24-Feb-2017 Instruction Type:Patient Education How to access health informa tion online Indication:Hyperlipidemia Start:24-Feb-2017 Instruction Type:Patient Education How to access health informa tion online - Detail Indication:Hyperlipidemia Start:24-Feb-2017 Instruction Type:Patient Education Patient Instructions Indication:Leukopenia Start:24-Feb-2017 Instruction Type:Provider Instructions for Treatment [facility]; [facility] Work Phone: Instructions* Name Dates Details How to Access Health Informa tion Online using Patient Portal and [employer]rd [employer] Apps Indication:Nonsmoker Start:02-May-2022 Instruction Type:Patient Education Patient Instructions Indication:Nonsmoker Start:02-May-2022 Instruction Type:Provider Instructions for Treatment Patient Instructions Indication:BMI 20.0-20.9, adult Start:21-Jan-2022 Instruction Type:Provider Instructions for Treatment How to Access Health Informa tion Online using Patient Portal and [employer]rd [employer] Apps Indication:BMI 20.0-20.9, adult Start:21-Jan-2022 Instruction Type:Patient Education Patient Instructions Indication:BMI 20.0-20.9, adult Start:14-Jan-2022 Instruction Type:Provider Instructions for Treatment How to Access Health Informa tion Online using Patient Portal and [employer]rd [employer] Apps Indication:BMI 20.0-20.9, adult Start:14-Jan-2022 Instruction Type:Patient Education Patient Instructions Indication:Hypertension Start:07-Jan-2022 Instruction Type:Provider Instructions for Treatment How to Access Health Informa tion Online using Patient Portal and [employer]rd [employer] Apps Indication:Nonsmoker Start:07-Jan-2022 Instruction Type:Patient Education Patient Instructions Indication:Nonsmoker Start:15-Dec-2021 Instruction Type:Provider Instructions for Treatment How to Access Health Informa tion Online using Patient Portal and [employer]rd [employer] Apps Indication:Nonsmoker Start:15-Dec-2021 Instruction Type:Patient Education Patient Instructions Indication:Nonsmoker Start:25-Aug-2021 Instruction Type:Provider Instructions for Treatment How to Access Health Informa tion Online using Patient Portal and [employer] Apps Indication:Nonsmoker Start:25-Aug-2021 Instruction Type:Patient Education Patient Instructions Indication:Hypothyroidism Start:23-Apr-2021 Instruction Type:Provider Instructions for Treatment How to Access Health Informa tion Online using Patient Portal and [employer] Apps Indication:Nonsmoker Start:23-Apr-2021 Instruction Type:Patient Education Patient Instructions Indication:BMI 20.0-20.9, adult Start:17-Mar-2021 Instruction Type:Provider Instructions for Treatment How to Access Health Informa tion Online using Patient Portal and [employer] Apps Indication:Nonsmoker Start:17-Mar-2021 Instruction Type:Patient Education Patient Instructions Indication:Nonsmoker Start:21-Dec-2020 Instruction Type:Provider Instructions for Treatment How to Access Health Informa tion Online using Patient Portal and [employer] Apps Indication:Nonsmoker Start:21-Dec-2020 Instruction Type:Patient Education How to access health informa tion online Indication:Nonsmoker Start:19-Aug-2020 Instruction Type:Patient Education How to access health informa tion online - Detail Indication:Nonsmoker Start:19-Aug-2020 Instruction Type:Patient Education Patient Instructions Indication:Vitamin D insufficiency Start:19-Aug-2020 Instruction Type:Provider Instructions for Treatment How to access health informa tion online Indication:Nonsmoker Start:07-Apr-2020 Instruction Type:Patient Education How to access health informa tion online - Detail Indication:Nonsmoker Start:07-Apr-2020 Instruction Type:Patient Education Patient Instructions Indication:BMI 20.0-20.9, adult Start:07-Apr-2020 Instruction Type:Provider Instructions for Treatment How to access health informa tion online Indication:Nonsmoker Start:10-Jul-2019 Instruction Type:Patient Education How to access health informa tion online - Detail Indication:Nonsmoker Start:10-Jul-2019 Instruction Type:Patient Education Patient Instructions Indication:Nonsmoker Start:10-Jul-2019 Instruction Type:Provider Instructions for Treatment How to access health informa tion online Indication:BMI 20.0-20.9, adult Start:09-Apr-2019 Instruction Type:Patient Education How to access health informa tion online - Detail Indication:BMI 20.0-20.9, adult Start:09-Apr-2019 Instruction Type:Patient Education Patient Instructions Indication:Nonsmoker Start:09-Apr-2019 Instruction Type:Provider Instructions for Treatment How to access health informa tion online Indication:Pre-operative general physical examination Start:27-Feb-2019 Instruction Type:Patient Education How to access health informa tion online - Detail Indication:Pre-operative general physical examination Start:27-Feb-2019 Instruction Type:Patient Education Patient Instructions Indication:Pre-operative general physical examination Start:27-Feb-2019 Instruction Type:Provider Instructions for Treatment How to access health informa tion online Indication:Nonsmoker Start:24-Oct-2018 Instruction Type:Patient Education How to access health informa tion online - Detail Indication:Nonsmoker Start:24-Oct-2018 Instruction Type:Patient Education Patient Instructions Indication:Nonsmoker Start:24-Oct-2018 Instruction Type:Provider Instructions for Treatment How to access health informa tion online Indication:Nonsmoker Start:15-Oct-2018 Instruction Type:Patient Education How to access health informa tion online - Detail Indication:Nonsmoker Start:15-Oct-2018 Instruction Type:Patient Education Patient Instructions Indication:Nonsmoker Start:15-Oct-2018 Instruction Type:Provider Instructions for Treatment How to access health informa tion online Indication:Nonsmoker Start:03-Oct-2018 Instruction Type:Patient Education How to access health informa tion online - Detail Indication:Nonsmoker Start:03-Oct-2018 Instruction Type:Patient Education Patient Instructions Indication:Nonsmoker Start:03-Oct-2018 Instruction Type:Provider Instructions for Treatment How to access health informa tion online Indication:Nonsmoker Start:24-Jul-2018 Instruction Type:Patient Education How to access health informa tion online - Detail Indication:Nonsmoker Start:24-Jul-2018 Instruction Type:Patient Education Patient Instructions Indication:Nonsmoker Start:24-Jul-2018 Instruction Type:Provider Instructions for Treatment How to access health informa tion online - Detail Indication:Hypertension Start:20-Apr-2018 Instruction Type:Patient Education How to access health informa tion online Indication:Hypertension Start:20-Apr-2018 Instruction Type:Patient Education Patient Instructions Indication:BMI 20.0-20.9, adult Start:20-Apr-2018 Instruction Type:Provider Instructions for Treatment How to access health informa tion online Indication:Hypothyroidism Start:03-Apr-2018 Instruction Type:Patient Education How to access health informa tion online - Detail Indication:Hypothyroidism Start:03-Apr-2018 Instruction Type:Patient Education Patient Instructions Indication:Hypothyroidism Start:03-Apr-2018 Instruction Type:Provider Instructions for Treatment Patient Instructions Indication:Hypothyroidism Start:30-Aug-2017 Instruction Type:Provider Instructions for Treatment How to access health informa tion online Indication:Nonsmoker Start:30-Aug-2017 Instruction Type:Patient Education How to access health informa tion online - Detail Indication:Nonsmoker Start:30-Aug-2017 Instruction Type:Patient Education Patient Instructions Indication:Nonsmoker Start:30-Aug-2017 Instruction Type:Provider Instructions for Treatment DISCONTINUED - LIPID PANEL ( [id number]) Indication:Hyperlipidemia Start:27-Mar-2017 Instruction Type:Patient Education How to access health informa tion online Indication:Osteoporosis Start:27-Mar-2017 Instruction Type:Patient Education How to access health informa tion online - Detail Indication:Osteoporosis Start:27-Mar-2017 Instruction Type:Patient Education Patient Instructions Indication:Osteoporosis Start:27-Mar-2017 Instruction Type:Provider Instructions for Treatment Patient Instructions Indication:Leukopenia Start:24-Feb-2017 Instruction Type:Provider Instructions for Treatment How to access health informa tion online Indication:Hyperlipidemia Start:24-Feb-2017 Instruction Type:Patient Education How to access health informa tion online Indication:Hyperlipidemia Start:24-Feb-2017 Instruction Type:Patient Education How to access health informa tion online - Detail Indication:Hyperlipidemia Start:24-Feb-2017 Instruction Type:Patient Education Patient Instructions Indication:Leukopenia Start:24-Feb-2017 Instruction Type:Provider Instructions for Treatment [facility]; [facility] Work Phone: Instructions* Name Dates Details How to Access Health Informa tion Online using Patient Portal and [employer] Apps Indication:Nonsmoker Start:02-May-2022 Instruction Type:Patient Education Patient Instructions Indication:Nonsmoker Start:02-May-2022 Instruction Type:Provider Instructions for Treatment Patient Instructions Indication:BMI 20.0-20.9, adult Start:21-Jan-2022 Instruction Type:Provider Instructions for Treatment How to Access Health Informa tion Online using Patient Portal and [employer] Apps Indication:BMI 20.0-20.9, adult Start:21-Jan-2022 Instruction Type:Patient Education Patient Instructions Indication:BMI 20.0-20.9, adult Start:14-Jan-2022 Instruction Type:Provider Instructions for Treatment How to Access Health Informa tion Online using Patient Portal and [employer] Apps Indication:BMI 20.0-20.9, adult Start:14-Jan-2022 Instruction Type:Patient Education Patient Instructions Indication:Hypertension Start:07-Jan-2022 Instruction Type:Provider Instructions for Treatment How to Access Health Informa tion Online using Patient Portal and [employer]rd [employer] Apps Indication:Nonsmoker Start:07-Jan-2022 Instruction Type:Patient Education Patient Instructions Indication:Nonsmoker Start:15-Dec-2021 Instruction Type:Provider Instructions for Treatment How to Access Health Informa tion Online using Patient Portal and [employer]rd [employer] Apps Indication:Nonsmoker Start:15-Dec-2021 Instruction Type:Patient Education Patient Instructions Indication:Nonsmoker Start:25-Aug-2021 Instruction Type:Provider Instructions for Treatment How to Access Health Informa tion Online using Patient Portal and [employer] Apps Indication:Nonsmoker Start:25-Aug-2021 Instruction Type:Patient Education Patient Instructions Indication:Hypothyroidism Start:23-Apr-2021 Instruction Type:Provider Instructions for Treatment How to Access Health Informa tion Online using Patient Portal and [employer]rd [employer] Apps Indication:Nonsmoker Start:23-Apr-2021 Instruction Type:Patient Education Patient Instructions Indication:BMI 20.0-20.9, adult Start:17-Mar-2021 Instruction Type:Provider Instructions for Treatment How to Access Health Informa tion Online using Patient Portal and [employer] Apps Indication:Nonsmoker Start:17-Mar-2021 Instruction Type:Patient Education Patient Instructions Indication:Nonsmoker Start:21-Dec-2020 Instruction Type:Provider Instructions for Treatment How to Access Health Informa tion Online using Patient Portal and [employer] Apps Indication:Nonsmoker Start:21-Dec-2020 Instruction Type:Patient Education How to access health informa tion online Indication:Nonsmoker Start:19-Aug-2020 Instruction Type:Patient Education How to access health informa tion online - Detail Indication:Nonsmoker Start:19-Aug-2020 Instruction Type:Patient Education Patient Instructions Indication:Vitamin D insufficiency Start:19-Aug-2020 Instruction Type:Provider Instructions for Treatment How to access health informa tion online Indication:Nonsmoker Start:07-Apr-2020 Instruction Type:Patient Education How to access health informa tion online - Detail Indication:Nonsmoker Start:07-Apr-2020 Instruction Type:Patient Education Patient Instructions Indication:BMI 20.0-20.9, adult Start:07-Apr-2020 Instruction Type:Provider Instructions for Treatment How to access health informa tion online Indication:Nonsmoker Start:10-Jul-2019 Instruction Type:Patient Education How to access health informa tion online - Detail Indication:Nonsmoker Start:10-Jul-2019 Instruction Type:Patient Education Patient Instructions Indication:Nonsmoker Start:10-Jul-2019 Instruction Type:Provider Instructions for Treatment How to access health informa tion online Indication:BMI 20.0-20.9, adult Start:09-Apr-2019 Instruction Type:Patient Education How to access health informa tion online - Detail Indication:BMI 20.0-20.9, adult Start:09-Apr-2019 Instruction Type:Patient Education Patient Instructions Indication:Nonsmoker Start:09-Apr-2019 Instruction Type:Provider Instructions for Treatment How to access health informa tion online Indication:Pre-operative general physical examination Start:27-Feb-2019 Instruction Type:Patient Education How to access health informa tion online - Detail Indication:Pre-operative general physical examination Start:27-Feb-2019 Instruction Type:Patient Education Patient Instructions Indication:Pre-operative general physical examination Start:27-Feb-2019 Instruction Type:Provider Instructions for Treatment How to access health informa tion online Indication:Nonsmoker Start:24-Oct-2018 Instruction Type:Patient Education How to access health informa tion online - Detail Indication:Nonsmoker Start:24-Oct-2018 Instruction Type:Patient Education Patient Instructions Indication:Nonsmoker Start:24-Oct-2018 Instruction Type:Provider Instructions for Treatment How to access health informa tion online Indication:Nonsmoker Start:15-Oct-2018 Instruction Type:Patient Education How to access health informa tion online - Detail Indication:Nonsmoker Start:15-Oct-2018 Instruction Type:Patient Education Patient Instructions Indication:Nonsmoker Start:15-Oct-2018 Instruction Type:Provider Instructions for Treatment How to access health informa tion online Indication:Nonsmoker Start:03-Oct-2018 Instruction Type:Patient Education How to access health informa tion online - Detail Indication:Nonsmoker Start:03-Oct-2018 Instruction Type:Patient Education Patient Instructions Indication:Nonsmoker Start:03-Oct-2018 Instruction Type:Provider Instructions for Treatment How to access health informa tion online Indication:Nonsmoker Start:24-Jul-2018 Instruction Type:Patient Education How to access health informa tion online - Detail Indication:Nonsmoker Start:24-Jul-2018 Instruction Type:Patient Education Patient Instructions Indication:Nonsmoker Start:24-Jul-2018 Instruction Type:Provider Instructions for Treatment How to access health informa tion online - Detail Indication:Hypertension Start:20-Apr-2018 Instruction Type:Patient Education How to access health informa tion online Indication:Hypertension Start:20-Apr-2018 Instruction Type:Patient Education Patient Instructions Indication:BMI 20.0-20.9, adult Start:20-Apr-2018 Instruction Type:Provider Instructions for Treatment How to access health informa tion online Indication:Hypothyroidism Start:03-Apr-2018 Instruction Type:Patient Education How to access health informa tion online - Detail Indication:Hypothyroidism Start:03-Apr-2018 Instruction Type:Patient Education Patient Instructions Indication:Hypothyroidism Start:03-Apr-2018 Instruction Type:Provider Instructions for Treatment Patient Instructions Indication:Hypothyroidism Start:30-Aug-2017 Instruction Type:Provider Instructions for Treatment How to access health informa tion online Indication:Nonsmoker Start:30-Aug-2017 Instruction Type:Patient Education How to access health informa tion online - Detail Indication:Nonsmoker Start:30-Aug-2017 Instruction Type:Patient Education Patient Instructions Indication:Nonsmoker Start:30-Aug-2017 Instruction Type:Provider Instructions for Treatment DISCONTINUED - LIPID PANEL ( [id number]) Indication:Hyperlipidemia Start:27-Mar-2017 Instruction Type:Patient Education How to access health informa tion online Indication:Osteoporosis Start:27-Mar-2017 Instruction Type:Patient Education How to access health informa tion online - Detail Indication:Osteoporosis Start:27-Mar-2017 Instruction Type:Patient Education Patient Instructions Indication:Osteoporosis Start:27-Mar-2017 Instruction Type:Provider Instructions for Treatment Patient Instructions Indication:Leukopenia Start:24-Feb-2017 Instruction Type:Provider Instructions for Treatment How to access health informa tion online Indication:Hyperlipidemia Start:24-Feb-2017 Instruction Type:Patient Education How to access health informa tion online Indication:Hyperlipidemia Start:24-Feb-2017 Instruction Type:Patient Education How to access health informa tion online - Detail Indication:Hyperlipidemia Start:24-Feb-2017 Instruction Type:Patient Education Patient Instructions Indication:Leukopenia Start:24-Feb-2017 Instruction Type:Provider Instructions for Treatment [facility]; [facility] Work Phone: Instructions* Name Dates Details How to Access Health Informa tion Online using Patient Portal and [employer] Apps Indication:Nonsmoker Start:02-May-2022 Instruction Type:Patient Education Patient Instructions Indication:Nonsmoker Start:02-May-2022 Instruction Type:Provider Instructions for Treatment Patient Instructions Indication:BMI 20.0-20.9, adult Start:21-Jan-2022 Instruction Type:Provider Instructions for Treatment How to Access Health Informa tion Online using Patient Portal and [employer] Apps Indication:BMI 20.0-20.9, adult Start:21-Jan-2022 Instruction Type:Patient Education Patient Instructions Indication:BMI 20.0-20.9, adult Start:14-Jan-2022 Instruction Type:Provider Instructions for Treatment How to Access Health Informa tion Online using Patient Portal and [employer] Apps Indication:BMI 20.0-20.9, adult Start:14-Jan-2022 Instruction Type:Patient Education Patient Instructions Indication:Hypertension Start:07-Jan-2022 Instruction Type:Provider Instructions for Treatment How to Access Health Informa tion Online using Patient Portal and [employer] Apps Indication:Nonsmoker Start:07-Jan-2022 Instruction Type:Patient Education Patient Instructions Indication:Nonsmoker Start:15-Dec-2021 Instruction Type:Provider Instructions for Treatment How to Access Health Informa tion Online using Patient Portal and [employer] Apps Indication:Nonsmoker Start:15-Dec-2021 Instruction Type:Patient Education Patient Instructions Indication:Nonsmoker Start:25-Aug-2021 Instruction Type:Provider Instructions for Treatment How to Access Health Informa tion Online using Patient Portal and [employer] Apps Indication:Nonsmoker Start:25-Aug-2021 Instruction Type:Patient Education Patient Instructions Indication:Hypothyroidism Start:23-Apr-2021 Instruction Type:Provider Instructions for Treatment How to Access Health Informa tion Online using Patient Portal and [employer] Apps Indication:Nonsmoker Start:23-Apr-2021 Instruction Type:Patient Education Patient Instructions Indication:BMI 20.0-20.9, adult Start:17-Mar-2021 Instruction Type:Provider Instructions for Treatment How to Access Health Informa tion Online using Patient Portal and [employer] Apps Indication:Nonsmoker Start:17-Mar-2021 Instruction Type:Patient Education Patient Instructions Indication:Nonsmoker Start:21-Dec-2020 Instruction Type:Provider Instructions for Treatment How to Access Health Informa tion Online using Patient Portal and [employer] Apps Indication:Nonsmoker Start:21-Dec-2020 Instruction Type:Patient Education How to access health informa tion online Indication:Nonsmoker Start:19-Aug-2020 Instruction Type:Patient Education How to access health informa tion online - Detail Indication:Nonsmoker Start:19-Aug-2020 Instruction Type:Patient Education Patient Instructions Indication:Vitamin D insufficiency Start:19-Aug-2020 Instruction Type:Provider Instructions for Treatment How to access health informa tion online Indication:Nonsmoker Start:07-Apr-2020 Instruction Type:Patient Education How to access health informa tion online - Detail Indication:Nonsmoker Start:07-Apr-2020 Instruction Type:Patient Education Patient Instructions Indication:BMI 20.0-20.9, adult Start:07-Apr-2020 Instruction Type:Provider Instructions for Treatment How to access health informa tion online Indication:Nonsmoker Start:10-Jul-2019 Instruction Type:Patient Education How to access health informa tion online - Detail Indication:Nonsmoker Start:10-Jul-2019 Instruction Type:Patient Education Patient Instructions Indication:Nonsmoker Start:10-Jul-2019 Instruction Type:Provider Instructions for Treatment How to access health informa tion online Indication:BMI 20.0-20.9, adult Start:09-Apr-2019 Instruction Type:Patient Education How to access health informa tion online - Detail Indication:BMI 20.0-20.9, adult Start:09-Apr-2019 Instruction Type:Patient Education Patient Instructions Indication:Nonsmoker Start:09-Apr-2019 Instruction Type:Provider Instructions for Treatment How to access health informa tion online Indication:Pre-operative general physical examination Start:27-Feb-2019 Instruction Type:Patient Education How to access health informa tion online - Detail Indication:Pre-operative general physical examination Start:27-Feb-2019 Instruction Type:Patient Education Patient Instructions Indication:Pre-operative general physical examination Start:27-Feb-2019 Instruction Type:Provider Instructions for Treatment How to access health informa tion online Indication:Nonsmoker Start:24-Oct-2018 Instruction Type:Patient Education How to access health informa tion online - Detail Indication:Nonsmoker Start:24-Oct-2018 Instruction Type:Patient Education Patient Instructions Indication:Nonsmoker Start:24-Oct-2018 Instruction Type:Provider Instructions for Treatment How to access health informa tion online Indication:Nonsmoker Start:15-Oct-2018 Instruction Type:Patient Education How to access health informa tion online - Detail Indication:Nonsmoker Start:15-Oct-2018 Instruction Type:Patient Education Patient Instructions Indication:Nonsmoker Start:15-Oct-2018 Instruction Type:Provider Instructions for Treatment How to access health informa tion online Indication:Nonsmoker Start:03-Oct-2018 Instruction Type:Patient Education How to access health informa tion online - Detail Indication:Nonsmoker Start:03-Oct-2018 Instruction Type:Patient Education Patient Instructions Indication:Nonsmoker Start:03-Oct-2018 Instruction Type:Provider Instructions for Treatment How to access health informa tion online Indication:Nonsmoker Start:24-Jul-2018 Instruction Type:Patient Education How to access health informa tion online - Detail Indication:Nonsmoker Start:24-Jul-2018 Instruction Type:Patient Education Patient Instructions Indication:Nonsmoker Start:24-Jul-2018 Instruction Type:Provider Instructions for Treatment How to access health informa tion online - Detail Indication:Hypertension Start:20-Apr-2018 Instruction Type:Patient Education How to access health informa tion online Indication:Hypertension Start:20-Apr-2018 Instruction Type:Patient Education Patient Instructions Indication:BMI 20.0-20.9, adult Start:20-Apr-2018 Instruction Type:Provider Instructions for Treatment How to access health informa tion online Indication:Hypothyroidism Start:03-Apr-2018 Instruction Type:Patient Education How to access health informa tion online - Detail Indication:Hypothyroidism Start:03-Apr-2018 Instruction Type:Patient Education Patient Instructions Indication:Hypothyroidism Start:03-Apr-2018 Instruction Type:Provider Instructions for Treatment Patient Instructions Indication:Hypothyroidism Start:30-Aug-2017 Instruction Type:Provider Instructions for Treatment How to access health informa tion online Indication:Nonsmoker Start:30-Aug-2017 Instruction Type:Patient Education How to access health informa tion online - Detail Indication:Nonsmoker Start:30-Aug-2017 Instruction Type:Patient Education Patient Instructions Indication:Nonsmoker Start:30-Aug-2017 Instruction Type:Provider Instructions for Treatment DISCONTINUED - LIPID PANEL ( [id number]) Indication:Hyperlipidemia Start:27-Mar-2017 Instruction Type:Patient Education How to access health informa tion online Indication:Osteoporosis Start:27-Mar-2017 Instruction Type:Patient Education How to access health informa tion online - Detail Indication:Osteoporosis Start:27-Mar-2017 Instruction Type:Patient Education Patient Instructions Indication:Osteoporosis Start:27-Mar-2017 Instruction Type:Provider Instructions for Treatment Patient Instructions Indication:Leukopenia Start:24-Feb-2017 Instruction Type:Provider Instructions for Treatment How to access health informa tion online Indication:Hyperlipidemia Start:24-Feb-2017 Instruction Type:Patient Education How to access health informa tion online Indication:Hyperlipidemia Start:24-Feb-2017 Instruction Type:Patient Education How to access health informa tion online - Detail Indication:Hyperlipidemia Start:24-Feb-2017 Instruction Type:Patient Education Patient Instructions Indication:Leukopenia Start:24-Feb-2017 Instruction Type:Provider Instructions for Treatment [facility]; [facility] Work Phone: Instructions* Name Dates Details How to Access Health Informa tion Online using Patient Portal and [employer] Apps Indication:Nonsmoker Start:05-Sep-2022 Instruction Type:Patient Education Patient Instructions Indication:Nonsmoker Start:05-Sep-2022 Instruction Type:Provider Instructions for Treatment How to Access Health Informa tion Online using Patient Portal and [employer]rd [employer] Apps Indication:Nonsmoker Start:02-May-2022 Instruction Type:Patient Education Patient Instructions Indication:Nonsmoker Start:02-May-2022 Instruction Type:Provider Instructions for Treatment Patient Instructions Indication:BMI 20.0-20.9, adult Start:21-Jan-2022 Instruction Type:Provider Instructions for Treatment How to Access Health Informa tion Online using Patient Portal and [employer] Apps Indication:BMI 20.0-20.9, adult Start:21-Jan-2022 Instruction Type:Patient Education Patient Instructions Indication:BMI 20.0-20.9, adult Start:14-Jan-2022 Instruction Type:Provider Instructions for Treatment How to Access Health Informa tion Online using Patient Portal and [employer]rd [employer] Apps Indication:BMI 20.0-20.9, adult Start:14-Jan-2022 Instruction Type:Patient Education Patient Instructions Indication:Hypertension Start:07-Jan-2022 Instruction Type:Provider Instructions for Treatment How to Access Health Informa tion Online using Patient Portal and [employer] Apps Indication:Nonsmoker Start:07-Jan-2022 Instruction Type:Patient Education Patient Instructions Indication:Nonsmoker Start:15-Dec-2021 Instruction Type:Provider Instructions for Treatment How to Access Health Informa tion Online using Patient Portal and [employer] Apps Indication:Nonsmoker Start:15-Dec-2021 Instruction Type:Patient Education Patient Instructions Indication:Nonsmoker Start:25-Aug-2021 Instruction Type:Provider Instructions for Treatment How to Access Health Informa tion Online using Patient Portal and [employer] Apps Indication:Nonsmoker Start:25-Aug-2021 Instruction Type:Patient Education Patient Instructions Indication:Hypothyroidism Start:23-Apr-2021 Instruction Type:Provider Instructions for Treatment How to Access Health Informa tion Online using Patient Portal and [employer] Apps Indication:Nonsmoker Start:23-Apr-2021 Instruction Type:Patient Education Patient Instructions Indication:BMI 20.0-20.9, adult Start:17-Mar-2021 Instruction Type:Provider Instructions for Treatment How to Access Health Informa tion Online using Patient Portal and [employer] Apps Indication:Nonsmoker Start:17-Mar-2021 Instruction Type:Patient Education Patient Instructions Indication:Nonsmoker Start:21-Dec-2020 Instruction Type:Provider Instructions for Treatment How to Access Health Informa tion Online using Patient Portal and [employer] Apps Indication:Nonsmoker Start:21-Dec-2020 Instruction Type:Patient Education How to access health informa tion online Indication:Nonsmoker Start:19-Aug-2020 Instruction Type:Patient Education How to access health informa tion online - Detail Indication:Nonsmoker Start:19-Aug-2020 Instruction Type:Patient Education Patient Instructions Indication:Vitamin D insufficiency Start:19-Aug-2020 Instruction Type:Provider Instructions for Treatment How to access health informa tion online Indication:Nonsmoker Start:07-Apr-2020 Instruction Type:Patient Education How to access health informa tion online - Detail Indication:Nonsmoker Start:07-Apr-2020 Instruction Type:Patient Education Patient Instructions Indication:BMI 20.0-20.9, adult Start:07-Apr-2020 Instruction Type:Provider Instructions for Treatment How to access health informa tion online Indication:Nonsmoker Start:10-Jul-2019 Instruction Type:Patient Education How to access health informa tion online - Detail Indication:Nonsmoker Start:10-Jul-2019 Instruction Type:Patient Education Patient Instructions Indication:Nonsmoker Start:10-Jul-2019 Instruction Type:Provider Instructions for Treatment How to access health informa tion online Indication:BMI 20.0-20.9, adult Start:09-Apr-2019 Instruction Type:Patient Education How to access health informa tion online - Detail Indication:BMI 20.0-20.9, adult Start:09-Apr-2019 Instruction Type:Patient Education Patient Instructions Indication:Nonsmoker Start:09-Apr-2019 Instruction Type:Provider Instructions for Treatment How to access health informa tion online Indication:Pre-operative general physical examination Start:27-Feb-2019 Instruction Type:Patient Education How to access health informa tion online - Detail Indication:Pre-operative general physical examination Start:27-Feb-2019 Instruction Type:Patient Education Patient Instructions Indication:Pre-operative general physical examination Start:27-Feb-2019 Instruction Type:Provider Instructions for Treatment How to access health informa tion online Indication:Nonsmoker Start:24-Oct-2018 Instruction Type:Patient Education How to access health informa tion online - Detail Indication:Nonsmoker Start:24-Oct-2018 Instruction Type:Patient Education Patient Instructions Indication:Nonsmoker Start:24-Oct-2018 Instruction Type:Provider Instructions for Treatment How to access health informa tion online Indication:Nonsmoker Start:15-Oct-2018 Instruction Type:Patient Education How to access health informa tion online - Detail Indication:Nonsmoker Start:15-Oct-2018 Instruction Type:Patient Education Patient Instructions Indication:Nonsmoker Start:15-Oct-2018 Instruction Type:Provider Instructions for Treatment How to access health informa tion online Indication:Nonsmoker Start:03-Oct-2018 Instruction Type:Patient Education How to access health informa tion online - Detail Indication:Nonsmoker Start:03-Oct-2018 Instruction Type:Patient Education Patient Instructions Indication:Nonsmoker Start:03-Oct-2018 Instruction Type:Provider Instructions for Treatment How to access health informa tion online Indication:Nonsmoker Start:24-Jul-2018 Instruction Type:Patient Education How to access health informa tion online - Detail Indication:Nonsmoker Start:24-Jul-2018 Instruction Type:Patient Education Patient Instructions Indication:Nonsmoker Start:24-Jul-2018 Instruction Type:Provider Instructions for Treatment How to access health informa tion online - Detail Indication:Hypertension Start:20-Apr-2018 Instruction Type:Patient Education How to access health informa tion online Indication:Hypertension Start:20-Apr-2018 Instruction Type:Patient Education Patient Instructions Indication:BMI 20.0-20.9, adult Start:20-Apr-2018 Instruction Type:Provider Instructions for Treatment How to access health informa tion online Indication:Hypothyroidism Start:03-Apr-2018 Instruction Type:Patient Education How to access health informa tion online - Detail Indication:Hypothyroidism Start:03-Apr-2018 Instruction Type:Patient Education Patient Instructions Indication:Hypothyroidism Start:03-Apr-2018 Instruction Type:Provider Instructions for Treatment Patient Instructions Indication:Hypothyroidism Start:30-Aug-2017 Instruction Type:Provider Instructions for Treatment How to access health informa tion online Indication:Nonsmoker Start:30-Aug-2017 Instruction Type:Patient Education How to access health informa tion online - Detail Indication:Nonsmoker Start:30-Aug-2017 Instruction Type:Patient Education Patient Instructions Indication:Nonsmoker Start:30-Aug-2017 Instruction Type:Provider Instructions for Treatment DISCONTINUED - LIPID PANEL ( [id number]) Indication:Hyperlipidemia Start:27-Mar-2017 Instruction Type:Patient Education How to access health informa tion online Indication:Osteoporosis Start:27-Mar-2017 Instruction Type:Patient Education How to access health informa tion online - Detail Indication:Osteoporosis Start:27-Mar-2017 Instruction Type:Patient Education Patient Instructions Indication:Osteoporosis Start:27-Mar-2017 Instruction Type:Provider Instructions for Treatment Patient Instructions Indication:Leukopenia Start:24-Feb-2017 Instruction Type:Provider Instructions for Treatment How to access health informa tion online Indication:Hyperlipidemia Start:24-Feb-2017 Instruction Type:Patient Education How to access health informa tion online Indication:Hyperlipidemia Start:24-Feb-2017 Instruction Type:Patient Education How to access health informa tion online - Detail Indication:Hyperlipidemia Start:24-Feb-2017 Instruction Type:Patient Education Patient Instructions Indication:Leukopenia Start:24-Feb-2017 Instruction Type:Provider Instructions for Treatment [facility]; [facility] Work Phone: Instructions* Name Dates Details How to Access Health Informa tion Online using Patient Portal and [employer] Apps Indication:Nonsmoker Start:05-Sep-2022 Instruction Type:Patient Education Patient Instructions Indication:Nonsmoker Start:05-Sep-2022 Instruction Type:Provider Instructions for Treatment How to Access Health Informa tion Online using Patient Portal and [employer] Apps Indication:Nonsmoker Start:02-May-2022 Instruction Type:Patient Education Patient Instructions Indication:Nonsmoker Start:02-May-2022 Instruction Type:Provider Instructions for Treatment Patient Instructions Indication:BMI 20.0-20.9, adult Start:21-Jan-2022 Instruction Type:Provider Instructions for Treatment How to Access Health Informa tion Online using Patient Portal and [employer]rd [employer] Apps Indication:BMI 20.0-20.9, adult Start:21-Jan-2022 Instruction Type:Patient Education Patient Instructions Indication:BMI 20.0-20.9, adult Start:14-Jan-2022 Instruction Type:Provider Instructions for Treatment How to Access Health Informa tion Online using Patient Portal and [employer] Apps Indication:BMI 20.0-20.9, adult Start:14-Jan-2022 Instruction Type:Patient Education Patient Instructions Indication:Hypertension Start:07-Jan-2022 Instruction Type:Provider Instructions for Treatment How to Access Health Informa tion Online using Patient Portal and [employer] Apps Indication:Nonsmoker Start:07-Jan-2022 Instruction Type:Patient Education Patient Instructions Indication:Nonsmoker Start:15-Dec-2021 Instruction Type:Provider Instructions for Treatment How to Access Health Informa tion Online using Patient Portal and [employer] Apps Indication:Nonsmoker Start:15-Dec-2021 Instruction Type:Patient Education Patient Instructions Indication:Nonsmoker Start:25-Aug-2021 Instruction Type:Provider Instructions for Treatment How to Access Health Informa tion Online using Patient Portal and [employer] Apps Indication:Nonsmoker Start:25-Aug-2021 Instruction Type:Patient Education Patient Instructions Indication:Hypothyroidism Start:23-Apr-2021 Instruction Type:Provider Instructions for Treatment How to Access Health Informa tion Online using Patient Portal and [employer] Apps Indication:Nonsmoker Start:23-Apr-2021 Instruction Type:Patient Education Patient Instructions Indication:BMI 20.0-20.9, adult Start:17-Mar-2021 Instruction Type:Provider Instructions for Treatment How to Access Health Informa tion Online using Patient Portal and [employer] Apps Indication:Nonsmoker Start:17-Mar-2021 Instruction Type:Patient Education Patient Instructions Indication:Nonsmoker Start:21-Dec-2020 Instruction Type:Provider Instructions for Treatment How to Access Health Informa tion Online using Patient Portal and [employer] Apps Indication:Nonsmoker Start:21-Dec-2020 Instruction Type:Patient Education How to access health informa tion online Indication:Nonsmoker Start:19-Aug-2020 Instruction Type:Patient Education How to access health informa tion online - Detail Indication:Nonsmoker Start:19-Aug-2020 Instruction Type:Patient Education Patient Instructions Indication:Vitamin D insufficiency Start:19-Aug-2020 Instruction Type:Provider Instructions for Treatment How to access health informa tion online Indication:Nonsmoker Start:07-Apr-2020 Instruction Type:Patient Education How to access health informa tion online - Detail Indication:Nonsmoker Start:07-Apr-2020 Instruction Type:Patient Education Patient Instructions Indication:BMI 20.0-20.9, adult Start:07-Apr-2020 Instruction Type:Provider Instructions for Treatment How to access health informa tion online Indication:Nonsmoker Start:10-Jul-2019 Instruction Type:Patient Education How to access health informa tion online - Detail Indication:Nonsmoker Start:10-Jul-2019 Instruction Type:Patient Education Patient Instructions Indication:Nonsmoker Start:10-Jul-2019 Instruction Type:Provider Instructions for Treatment How to access health informa tion online Indication:BMI 20.0-20.9, adult Start:09-Apr-2019 Instruction Type:Patient Education How to access health informa tion online - Detail Indication:BMI 20.0-20.9, adult Start:09-Apr-2019 Instruction Type:Patient Education Patient Instructions Indication:Nonsmoker Start:09-Apr-2019 Instruction Type:Provider Instructions for Treatment How to access health informa tion online Indication:Pre-operative general physical examination Start:27-Feb-2019 Instruction Type:Patient Education How to access health informa tion online - Detail Indication:Pre-operative general physical examination Start:27-Feb-2019 Instruction Type:Patient Education Patient Instructions Indication:Pre-operative general physical examination Start:27-Feb-2019 Instruction Type:Provider Instructions for Treatment How to access health informa tion online Indication:Nonsmoker Start:24-Oct-2018 Instruction Type:Patient Education How to access health informa tion online - Detail Indication:Nonsmoker Start:24-Oct-2018 Instruction Type:Patient Education Patient Instructions Indication:Nonsmoker Start:24-Oct-2018 Instruction Type:Provider Instructions for Treatment How to access health informa tion online Indication:Nonsmoker Start:15-Oct-2018 Instruction Type:Patient Education How to access health informa tion online - Detail Indication:Nonsmoker Start:15-Oct-2018 Instruction Type:Patient Education Patient Instructions Indication:Nonsmoker Start:15-Oct-2018 Instruction Type:Provider Instructions for Treatment How to access health informa tion online Indication:Nonsmoker Start:03-Oct-2018 Instruction Type:Patient Education How to access health informa tion online - Detail Indication:Nonsmoker Start:03-Oct-2018 Instruction Type:Patient Education Patient Instructions Indication:Nonsmoker Start:03-Oct-2018 Instruction Type:Provider Instructions for Treatment How to access health informa tion online Indication:Nonsmoker Start:24-Jul-2018 Instruction Type:Patient Education How to access health informa tion online - Detail Indication:Nonsmoker Start:24-Jul-2018 Instruction Type:Patient Education Patient Instructions Indication:Nonsmoker Start:24-Jul-2018 Instruction Type:Provider Instructions for Treatment How to access health informa tion online - Detail Indication:Hypertension Start:20-Apr-2018 Instruction Type:Patient Education How to access health informa tion online Indication:Hypertension Start:20-Apr-2018 Instruction Type:Patient Education Patient Instructions Indication:BMI 20.0-20.9, adult Start:20-Apr-2018 Instruction Type:Provider Instructions for Treatment How to access health informa tion online Indication:Hypothyroidism Start:03-Apr-2018 Instruction Type:Patient Education How to access health informa tion online - Detail Indication:Hypothyroidism Start:03-Apr-2018 Instruction Type:Patient Education Patient Instructions Indication:Hypothyroidism Start:03-Apr-2018 Instruction Type:Provider Instructions for Treatment Patient Instructions Indication:Hypothyroidism Start:30-Aug-2017 Instruction Type:Provider Instructions for Treatment How to access health informa tion online Indication:Nonsmoker Start:30-Aug-2017 Instruction Type:Patient Education How to access health informa tion online - Detail Indication:Nonsmoker Start:30-Aug-2017 Instruction Type:Patient Education Patient Instructions Indication:Nonsmoker Start:30-Aug-2017 Instruction Type:Provider Instructions for Treatment DISCONTINUED - LIPID PANEL ( [id number]) Indication:Hyperlipidemia Start:27-Mar-2017 Instruction Type:Patient Education How to access health informa tion online Indication:Osteoporosis Start:27-Mar-2017 Instruction Type:Patient Education How to access health informa tion online - Detail Indication:Osteoporosis Start:27-Mar-2017 Instruction Type:Patient Education Patient Instructions Indication:Osteoporosis Start:27-Mar-2017 Instruction Type:Provider Instructions for Treatment Patient Instructions Indication:Leukopenia Start:24-Feb-2017 Instruction Type:Provider Instructions for Treatment How to access health informa tion online Indication:Hyperlipidemia Start:24-Feb-2017 Instruction Type:Patient Education How to access health informa tion online Indication:Hyperlipidemia Start:24-Feb-2017 Instruction Type:Patient Education How to access health informa tion online - Detail Indication:Hyperlipidemia Start:24-Feb-2017 Instruction Type:Patient Education Patient Instructions Indication:Leukopenia Start:24-Feb-2017 Instruction Type:Provider Instructions for Treatment [facility]; [facility] Work Phone: Instructions* Name Dates Details How to Access Health Informa tion Online using Patient Portal and [employer] Apps Indication:Nonsmoker Start:05-Sep-2022 Instruction Type:Patient Education Patient Instructions Indication:Nonsmoker Start:05-Sep-2022 Instruction Type:Provider Instructions for Treatment How to Access Health Informa tion Online using Patient Portal and [employer] Apps Indication:Nonsmoker Start:02-May-2022 Instruction Type:Patient Education Patient Instructions Indication:Nonsmoker Start:02-May-2022 Instruction Type:Provider Instructions for Treatment Patient Instructions Indication:BMI 20.0-20.9, adult Start:21-Jan-2022 Instruction Type:Provider Instructions for Treatment How to Access Health Informa tion Online using Patient Portal and [employer] Apps Indication:BMI 20.0-20.9, adult Start:21-Jan-2022 Instruction Type:Patient Education Patient Instructions Indication:BMI 20.0-20.9, adult Start:14-Jan-2022 Instruction Type:Provider Instructions for Treatment How to Access Health Informa tion Online using Patient Portal and [employer] Apps Indication:BMI 20.0-20.9, adult Start:14-Jan-2022 Instruction Type:Patient Education Patient Instructions Indication:Hypertension Start:07-Jan-2022 Instruction Type:Provider Instructions for Treatment How to Access Health Informa tion Online using Patient Portal and [employer] Apps Indication:Nonsmoker Start:07-Jan-2022 Instruction Type:Patient Education Patient Instructions Indication:Nonsmoker Start:15-Dec-2021 Instruction Type:Provider Instructions for Treatment How to Access Health Informa tion Online using Patient Portal and [employer] Apps Indication:Nonsmoker Start:15-Dec-2021 Instruction Type:Patient Education Patient Instructions Indication:Nonsmoker Start:25-Aug-2021 Instruction Type:Provider Instructions for Treatment How to Access Health Informa tion Online using Patient Portal and [employer] Apps Indication:Nonsmoker Start:25-Aug-2021 Instruction Type:Patient Education Patient Instructions Indication:Hypothyroidism Start:23-Apr-2021 Instruction Type:Provider Instructions for Treatment How to Access Health Informa tion Online using Patient Portal and [employer] Apps Indication:Nonsmoker Start:23-Apr-2021 Instruction Type:Patient Education Patient Instructions Indication:BMI 20.0-20.9, adult Start:17-Mar-2021 Instruction Type:Provider Instructions for Treatment How to Access Health Informa tion Online using Patient Portal and [employer] Apps Indication:Nonsmoker Start:17-Mar-2021 Instruction Type:Patient Education Patient Instructions Indication:Nonsmoker Start:21-Dec-2020 Instruction Type:Provider Instructions for Treatment How to Access Health Informa tion Online using Patient Portal and [employer] Apps Indication:Nonsmoker Start:21-Dec-2020 Instruction Type:Patient Education How to access health informa tion online Indication:Nonsmoker Start:19-Aug-2020 Instruction Type:Patient Education How to access health informa tion online - Detail Indication:Nonsmoker Start:19-Aug-2020 Instruction Type:Patient Education Patient Instructions Indication:Vitamin D insufficiency Start:19-Aug-2020 Instruction Type:Provider Instructions for Treatment How to access health informa tion online Indication:Nonsmoker Start:07-Apr-2020 Instruction Type:Patient Education How to access health informa tion online - Detail Indication:Nonsmoker Start:07-Apr-2020 Instruction Type:Patient Education Patient Instructions Indication:BMI 20.0-20.9, adult Start:07-Apr-2020 Instruction Type:Provider Instructions for Treatment How to access health informa tion online Indication:Nonsmoker Start:10-Jul-2019 Instruction Type:Patient Education How to access health informa tion online - Detail Indication:Nonsmoker Start:10-Jul-2019 Instruction Type:Patient Education Patient Instructions Indication:Nonsmoker Start:10-Jul-2019 Instruction Type:Provider Instructions for Treatment How to access health informa tion online Indication:BMI 20.0-20.9, adult Start:09-Apr-2019 Instruction Type:Patient Education How to access health informa tion online - Detail Indication:BMI 20.0-20.9, adult Start:09-Apr-2019 Instruction Type:Patient Education Patient Instructions Indication:Nonsmoker Start:09-Apr-2019 Instruction Type:Provider Instructions for Treatment How to access health informa tion online Indication:Pre-operative general physical examination Start:27-Feb-2019 Instruction Type:Patient Education How to access health informa tion online - Detail Indication:Pre-operative general physical examination Start:27-Feb-2019 Instruction Type:Patient Education Patient Instructions Indication:Pre-operative general physical examination Start:27-Feb-2019 Instruction Type:Provider Instructions for Treatment How to access health informa tion online Indication:Nonsmoker Start:24-Oct-2018 Instruction Type:Patient Education How to access health informa tion online - Detail Indication:Nonsmoker Start:24-Oct-2018 Instruction Type:Patient Education Patient Instructions Indication:Nonsmoker Start:24-Oct-2018 Instruction Type:Provider Instructions for Treatment How to access health informa tion online Indication:Nonsmoker Start:15-Oct-2018 Instruction Type:Patient Education How to access health informa tion online - Detail Indication:Nonsmoker Start:15-Oct-2018 Instruction Type:Patient Education Patient Instructions Indication:Nonsmoker Start:15-Oct-2018 Instruction Type:Provider Instructions for Treatment How to access health informa tion online Indication:Nonsmoker Start:03-Oct-2018 Instruction Type:Patient Education How to access health informa tion online - Detail Indication:Nonsmoker Start:03-Oct-2018 Instruction Type:Patient Education Patient Instructions Indication:Nonsmoker Start:03-Oct-2018 Instruction Type:Provider Instructions for Treatment How to access health informa tion online Indication:Nonsmoker Start:24-Jul-2018 Instruction Type:Patient Education How to access health informa tion online - Detail Indication:Nonsmoker Start:24-Jul-2018 Instruction Type:Patient Education Patient Instructions Indication:Nonsmoker Start:24-Jul-2018 Instruction Type:Provider Instructions for Treatment How to access health informa tion online - Detail Indication:Hypertension Start:20-Apr-2018 Instruction Type:Patient Education How to access health informa tion online Indication:Hypertension Start:20-Apr-2018 Instruction Type:Patient Education Patient Instructions Indication:BMI 20.0-20.9, adult Start:20-Apr-2018 Instruction Type:Provider Instructions for Treatment How to access health informa tion online Indication:Hypothyroidism Start:03-Apr-2018 Instruction Type:Patient Education How to access health informa tion online - Detail Indication:Hypothyroidism Start:03-Apr-2018 Instruction Type:Patient Education Patient Instructions Indication:Hypothyroidism Start:03-Apr-2018 Instruction Type:Provider Instructions for Treatment Patient Instructions Indication:Hypothyroidism Start:30-Aug-2017 Instruction Type:Provider Instructions for Treatment How to access health informa tion online Indication:Nonsmoker Start:30-Aug-2017 Instruction Type:Patient Education How to access health informa tion online - Detail Indication:Nonsmoker Start:30-Aug-2017 Instruction Type:Patient Education Patient Instructions Indication:Nonsmoker Start:30-Aug-2017 Instruction Type:Provider Instructions for Treatment DISCONTINUED - LIPID PANEL ( [id number]) Indication:Hyperlipidemia Start:27-Mar-2017 Instruction Type:Patient Education How to access health informa tion online Indication:Osteoporosis Start:27-Mar-2017 Instruction Type:Patient Education How to access health informa tion online - Detail Indication:Osteoporosis Start:27-Mar-2017 Instruction Type:Patient Education Patient Instructions Indication:Osteoporosis Start:27-Mar-2017 Instruction Type:Provider Instructions for Treatment Patient Instructions Indication:Leukopenia Start:24-Feb-2017 Instruction Type:Provider Instructions for Treatment How to access health informa tion online Indication:Hyperlipidemia Start:24-Feb-2017 Instruction Type:Patient Education How to access health informa tion online Indication:Hyperlipidemia Start:24-Feb-2017 Instruction Type:Patient Education How to access health informa tion online - Detail Indication:Hyperlipidemia Start:24-Feb-2017 Instruction Type:Patient Education Patient Instructions Indication:Leukopenia Start:24-Feb-2017 Instruction Type:Provider Instructions for Treatment [facility]; [facility] Work Phone: Instructions* Name Dates Details Patient Instructions Indication:Hypertension Start:04-Jan-2023 Instruction Type:Provider Instructions for Treatment How to Access Health Informa tion Online using Patient Portal and [employer]rd [employer] Apps Indication:Hypertension Start:04-Jan-2023 Instruction Type:Patient Education How to Access Health Informa tion Online using Patient Portal and [employer]rd [employer] Apps Indication:Nonsmoker Start:05-Sep-2022 Instruction Type:Patient Education Patient Instructions Indication:Nonsmoker Start:05-Sep-2022 Instruction Type:Provider Instructions for Treatment How to Access Health Informa tion Online using Patient Portal and [employer]rd [employer] Apps Indication:Nonsmoker Start:02-May-2022 Instruction Type:Patient Education Patient Instructions Indication:Nonsmoker Start:02-May-2022 Instruction Type:Provider Instructions for Treatment Patient Instructions Indication:BMI 20.0-20.9, adult Start:21-Jan-2022 Instruction Type:Provider Instructions for Treatment How to Access Health Informa tion Online using Patient Portal and [employer]rd [employer] Apps Indication:BMI 20.0-20.9, adult Start:21-Jan-2022 Instruction Type:Patient Education Patient Instructions Indication:BMI 20.0-20.9, adult Start:14-Jan-2022 Instruction Type:Provider Instructions for Treatment How to Access Health Informa tion Online using Patient Portal and [employer]rd [employer] Apps Indication:BMI 20.0-20.9, adult Start:14-Jan-2022 Instruction Type:Patient Education Patient Instructions Indication:Hypertension Start:07-Jan-2022 Instruction Type:Provider Instructions for Treatment How to Access Health Informa tion Online using Patient Portal and [employer]rd [employer] Apps Indication:Nonsmoker Start:07-Jan-2022 Instruction Type:Patient Education Patient Instructions Indication:Nonsmoker Start:15-Dec-2021 Instruction Type:Provider Instructions for Treatment How to Access Health Informa tion Online using Patient Portal and [employer]rd [employer] Apps Indication:Nonsmoker Start:15-Dec-2021 Instruction Type:Patient Education Patient Instructions Indication:Nonsmoker Start:25-Aug-2021 Instruction Type:Provider Instructions for Treatment How to Access Health Informa tion Online using Patient Portal and [employer]rd [employer] Apps Indication:Nonsmoker Start:25-Aug-2021 Instruction Type:Patient Education Patient Instructions Indication:Hypothyroidism Start:23-Apr-2021 Instruction Type:Provider Instructions for Treatment How to Access Health Informa tion Online using Patient Portal and [employer]rd [employer] Apps Indication:Nonsmoker Start:23-Apr-2021 Instruction Type:Patient Education Patient Instructions Indication:BMI 20.0-20.9, adult Start:17-Mar-2021 Instruction Type:Provider Instructions for Treatment How to Access Health Informa tion Online using Patient Portal and [employer]rd [employer] Apps Indication:Nonsmoker Start:17-Mar-2021 Instruction Type:Patient Education Patient Instructions Indication:Nonsmoker Start:21-Dec-2020 Instruction Type:Provider Instructions for Treatment How to Access Health Informa tion Online using Patient Portal and [employer]rd [employer] Apps Indication:Nonsmoker Start:21-Dec-2020 Instruction Type:Patient Education How to access health informa tion online Indication:Nonsmoker Start:19-Aug-2020 Instruction Type:Patient Education How to access health informa tion online - Detail Indication:Nonsmoker Start:19-Aug-2020 Instruction Type:Patient Education Patient Instructions Indication:Vitamin D insufficiency Start:19-Aug-2020 Instruction Type:Provider Instructions for Treatment How to access health informa tion online Indication:Nonsmoker Start:07-Apr-2020 Instruction Type:Patient Education How to access health informa tion online - Detail Indication:Nonsmoker Start:07-Apr-2020 Instruction Type:Patient Education Patient Instructions Indication:BMI 20.0-20.9, adult Start:07-Apr-2020 Instruction Type:Provider Instructions for Treatment How to access health informa tion online Indication:Nonsmoker Start:10-Jul-2019 Instruction Type:Patient Education How to access health informa tion online - Detail Indication:Nonsmoker Start:10-Jul-2019 Instruction Type:Patient Education Patient Instructions Indication:Nonsmoker Start:10-Jul-2019 Instruction Type:Provider Instructions for Treatment How to access health informa tion online Indication:BMI 20.0-20.9, adult Start:09-Apr-2019 Instruction Type:Patient Education How to access health informa tion online - Detail Indication:BMI 20.0-20.9, adult Start:09-Apr-2019 Instruction Type:Patient Education Patient Instructions Indication:Nonsmoker Start:09-Apr-2019 Instruction Type:Provider Instructions for Treatment How to access health informa tion online Indication:Pre-operative general physical examination Start:27-Feb-2019 Instruction Type:Patient Education How to access health informa tion online - Detail Indication:Pre-operative general physical examination Start:27-Feb-2019 Instruction Type:Patient Education Patient Instructions Indication:Pre-operative general physical examination Start:27-Feb-2019 Instruction Type:Provider Instructions for Treatment How to access health informa tion online Indication:Nonsmoker Start:24-Oct-2018 Instruction Type:Patient Education How to access health informa tion online - Detail Indication:Nonsmoker Start:24-Oct-2018 Instruction Type:Patient Education Patient Instructions Indication:Nonsmoker Start:24-Oct-2018 Instruction Type:Provider Instructions for Treatment How to access health informa tion online Indication:Nonsmoker Start:15-Oct-2018 Instruction Type:Patient Education How to access health informa tion online - Detail Indication:Nonsmoker Start:15-Oct-2018 Instruction Type:Patient Education Patient Instructions Indication:Nonsmoker Start:15-Oct-2018 Instruction Type:Provider Instructions for Treatment How to access health informa tion online Indication:Nonsmoker Start:03-Oct-2018 Instruction Type:Patient Education How to access health informa tion online - Detail Indication:Nonsmoker Start:03-Oct-2018 Instruction Type:Patient Education Patient Instructions Indication:Nonsmoker Start:03-Oct-2018 Instruction Type:Provider Instructions for Treatment How to access health informa tion online Indication:Nonsmoker Start:24-Jul-2018 Instruction Type:Patient Education How to access health informa tion online - Detail Indication:Nonsmoker Start:24-Jul-2018 Instruction Type:Patient Education Patient Instructions Indication:Nonsmoker Start:24-Jul-2018 Instruction Type:Provider Instructions for Treatment How to access health informa tion online - Detail Indication:Hypertension Start:20-Apr-2018 Instruction Type:Patient Education How to access health informa tion online Indication:Hypertension Start:20-Apr-2018 Instruction Type:Patient Education Patient Instructions Indication:BMI 20.0-20.9, adult Start:20-Apr-2018 Instruction Type:Provider Instructions for Treatment How to access health informa tion online Indication:Hypothyroidism Start:03-Apr-2018 Instruction Type:Patient Education How to access health informa tion online - Detail Indication:Hypothyroidism Start:03-Apr-2018 Instruction Type:Patient Education Patient Instructions Indication:Hypothyroidism Start:03-Apr-2018 Instruction Type:Provider Instructions for Treatment Patient Instructions Indication:Hypothyroidism Start:30-Aug-2017 Instruction Type:Provider Instructions for Treatment How to access health informa tion online Indication:Nonsmoker Start:30-Aug-2017 Instruction Type:Patient Education How to access health informa tion online - Detail Indication:Nonsmoker Start:30-Aug-2017 Instruction Type:Patient Education Patient Instructions Indication:Nonsmoker Start:30-Aug-2017 Instruction Type:Provider Instructions for Treatment DISCONTINUED - LIPID PANEL ( [id number]) Indication:Hyperlipidemia Start:27-Mar-2017 Instruction Type:Patient Education How to access health informa tion online Indication:Osteoporosis Start:27-Mar-2017 Instruction Type:Patient Education How to access health informa tion online - Detail Indication:Osteoporosis Start:27-Mar-2017 Instruction Type:Patient Education Patient Instructions Indication:Osteoporosis Start:27-Mar-2017 Instruction Type:Provider Instructions for Treatment Patient Instructions Indication:Leukopenia Start:24-Feb-2017 Instruction Type:Provider Instructions for Treatment How to access health informa tion online Indication:Hyperlipidemia Start:24-Feb-2017 Instruction Type:Patient Education How to access health informa tion online Indication:Hyperlipidemia Start:24-Feb-2017 Instruction Type:Patient Education How to access health informa tion online - Detail Indication:Hyperlipidemia Start:24-Feb-2017 Instruction Type:Patient Education Patient Instructions Indication:Leukopenia Start:24-Feb-2017 Instruction Type:Provider Instructions for Treatment [facility]; [facility] Work Phone: Instructions* Name Dates Details Patient Instructions Indication:Hypertension Start:04-Jan-2023 Instruction Type:Provider Instructions for Treatment How to Access Health Informa tion Online using Patient Portal and [employer]rd [employer] Apps Indication:Hypertension Start:04-Jan-2023 Instruction Type:Patient Education How to Access Health Informa tion Online using Patient Portal and [employer]rd [employer] Apps Indication:Nonsmoker Start:05-Sep-2022 Instruction Type:Patient Education Patient Instructions Indication:Nonsmoker Start:05-Sep-2022 Instruction Type:Provider Instructions for Treatment How to Access Health Informa tion Online using Patient Portal and [employer]rd [employer] Apps Indication:Nonsmoker Start:02-May-2022 Instruction Type:Patient Education Patient Instructions Indication:Nonsmoker Start:02-May-2022 Instruction Type:Provider Instructions for Treatment Patient Instructions Indication:BMI 20.0-20.9, adult Start:21-Jan-2022 Instruction Type:Provider Instructions for Treatment How to Access Health Informa tion Online using Patient Portal and [employer]rd [employer] Apps Indication:BMI 20.0-20.9, adult Start:21-Jan-2022 Instruction Type:Patient Education Patient Instructions Indication:BMI 20.0-20.9, adult Start:14-Jan-2022 Instruction Type:Provider Instructions for Treatment How to Access Health Informa tion Online using Patient Portal and [employer]rd [employer] Apps Indication:BMI 20.0-20.9, adult Start:14-Jan-2022 Instruction Type:Patient Education Patient Instructions Indication:Hypertension Start:07-Jan-2022 Instruction Type:Provider Instructions for Treatment How to Access Health Informa tion Online using Patient Portal and [employer]rd [employer] Apps Indication:Nonsmoker Start:07-Jan-2022 Instruction Type:Patient Education Patient Instructions Indication:Nonsmoker Start:15-Dec-2021 Instruction Type:Provider Instructions for Treatment How to Access Health Informa tion Online using Patient Portal and [employer]rd [employer] Apps Indication:Nonsmoker Start:15-Dec-2021 Instruction Type:Patient Education Patient Instructions Indication:Nonsmoker Start:25-Aug-2021 Instruction Type:Provider Instructions for Treatment How to Access Health Informa tion Online using Patient Portal and [employer]rd [employer] Apps Indication:Nonsmoker Start:25-Aug-2021 Instruction Type:Patient Education Patient Instructions Indication:Hypothyroidism Start:23-Apr-2021 Instruction Type:Provider Instructions for Treatment How to Access Health Informa tion Online using Patient Portal and [employer]rd [employer] Apps Indication:Nonsmoker Start:23-Apr-2021 Instruction Type:Patient Education Patient Instructions Indication:BMI 20.0-20.9, adult Start:17-Mar-2021 Instruction Type:Provider Instructions for Treatment How to Access Health Informa tion Online using Patient Portal and [employer]rd [employer] Apps Indication:Nonsmoker Start:17-Mar-2021 Instruction Type:Patient Education Patient Instructions Indication:Nonsmoker Start:21-Dec-2020 Instruction Type:Provider Instructions for Treatment How to Access Health Informa tion Online using Patient Portal and [employer] Apps Indication:Nonsmoker Start:21-Dec-2020 Instruction Type:Patient Education How to access health informa tion online Indication:Nonsmoker Start:19-Aug-2020 Instruction Type:Patient Education How to access health informa tion online - Detail Indication:Nonsmoker Start:19-Aug-2020 Instruction Type:Patient Education Patient Instructions Indication:Vitamin D insufficiency Start:19-Aug-2020 Instruction Type:Provider Instructions for Treatment How to access health informa tion online Indication:Nonsmoker Start:07-Apr-2020 Instruction Type:Patient Education How to access health informa tion online - Detail Indication:Nonsmoker Start:07-Apr-2020 Instruction Type:Patient Education Patient Instructions Indication:BMI 20.0-20.9, adult Start:07-Apr-2020 Instruction Type:Provider Instructions for Treatment How to access health informa tion online Indication:Nonsmoker Start:10-Jul-2019 Instruction Type:Patient Education How to access health informa tion online - Detail Indication:Nonsmoker Start:10-Jul-2019 Instruction Type:Patient Education Patient Instructions Indication:Nonsmoker Start:10-Jul-2019 Instruction Type:Provider Instructions for Treatment How to access health informa tion online Indication:BMI 20.0-20.9, adult Start:09-Apr-2019 Instruction Type:Patient Education How to access health informa tion online - Detail Indication:BMI 20.0-20.9, adult Start:09-Apr-2019 Instruction Type:Patient Education Patient Instructions Indication:Nonsmoker Start:09-Apr-2019 Instruction Type:Provider Instructions for Treatment How to access health informa tion online Indication:Pre-operative general physical examination Start:27-Feb-2019 Instruction Type:Patient Education How to access health informa tion online - Detail Indication:Pre-operative general physical examination Start:27-Feb-2019 Instruction Type:Patient Education Patient Instructions Indication:Pre-operative general physical examination Start:27-Feb-2019 Instruction Type:Provider Instructions for Treatment How to access health informa tion online Indication:Nonsmoker Start:24-Oct-2018 Instruction Type:Patient Education How to access health informa tion online - Detail Indication:Nonsmoker Start:24-Oct-2018 Instruction Type:Patient Education Patient Instructions Indication:Nonsmoker Start:24-Oct-2018 Instruction Type:Provider Instructions for Treatment How to access health informa tion online Indication:Nonsmoker Start:15-Oct-2018 Instruction Type:Patient Education How to access health informa tion online - Detail Indication:Nonsmoker Start:15-Oct-2018 Instruction Type:Patient Education Patient Instructions Indication:Nonsmoker Start:15-Oct-2018 Instruction Type:Provider Instructions for Treatment How to access health informa tion online Indication:Nonsmoker Start:03-Oct-2018 Instruction Type:Patient Education How to access health informa tion online - Detail Indication:Nonsmoker Start:03-Oct-2018 Instruction Type:Patient Education Patient Instructions Indication:Nonsmoker Start:03-Oct-2018 Instruction Type:Provider Instructions for Treatment How to access health informa tion online Indication:Nonsmoker Start:24-Jul-2018 Instruction Type:Patient Education How to access health informa tion online - Detail Indication:Nonsmoker Start:24-Jul-2018 Instruction Type:Patient Education Patient Instructions Indication:Nonsmoker Start:24-Jul-2018 Instruction Type:Provider Instructions for Treatment How to access health informa tion online - Detail Indication:Hypertension Start:20-Apr-2018 Instruction Type:Patient Education How to access health informa tion online Indication:Hypertension Start:20-Apr-2018 Instruction Type:Patient Education Patient Instructions Indication:BMI 20.0-20.9, adult Start:20-Apr-2018 Instruction Type:Provider Instructions for Treatment How to access health informa tion online Indication:Hypothyroidism Start:03-Apr-2018 Instruction Type:Patient Education How to access health informa tion online - Detail Indication:Hypothyroidism Start:03-Apr-2018 Instruction Type:Patient Education Patient Instructions Indication:Hypothyroidism Start:03-Apr-2018 Instruction Type:Provider Instructions for Treatment Patient Instructions Indication:Hypothyroidism Start:30-Aug-2017 Instruction Type:Provider Instructions for Treatment How to access health informa tion online Indication:Nonsmoker Start:30-Aug-2017 Instruction Type:Patient Education How to access health informa tion online - Detail Indication:Nonsmoker Start:30-Aug-2017 Instruction Type:Patient Education Patient Instructions Indication:Nonsmoker Start:30-Aug-2017 Instruction Type:Provider Instructions for Treatment DISCONTINUED - LIPID PANEL ( [id number]) Indication:Hyperlipidemia Start:27-Mar-2017 Instruction Type:Patient Education How to access health informa tion online Indication:Osteoporosis Start:27-Mar-2017 Instruction Type:Patient Education How to access health informa tion online - Detail Indication:Osteoporosis Start:27-Mar-2017 Instruction Type:Patient Education Patient Instructions Indication:Osteoporosis Start:27-Mar-2017 Instruction Type:Provider Instructions for Treatment Patient Instructions Indication:Leukopenia Start:24-Feb-2017 Instruction Type:Provider Instructions for Treatment How to access health informa tion online Indication:Hyperlipidemia Start:24-Feb-2017 Instruction Type:Patient Education How to access health informa tion online Indication:Hyperlipidemia Start:24-Feb-2017 Instruction Type:Patient Education How to access health informa tion online - Detail Indication:Hyperlipidemia Start:24-Feb-2017 Instruction Type:Patient Education Patient Instructions Indication:Leukopenia Start:24-Feb-2017 Instruction Type:Provider Instructions for Treatment [facility]; [facility] Work Phone: Instructions* Name Dates Details Patient Instructions Indication:Hypertension Start:04-Jan-2023 Instruction Type:Provider Instructions for Treatment How to Access Health Informa tion Online using Patient Portal and [employer]rd [employer] Apps Indication:Hypertension Start:04-Jan-2023 Instruction Type:Patient Education How to Access Health Informa tion Online using Patient Portal and [employer]rd [employer] Apps Indication:Nonsmoker Start:05-Sep-2022 Instruction Type:Patient Education Patient Instructions Indication:Nonsmoker Start:05-Sep-2022 Instruction Type:Provider Instructions for Treatment How to Access Health Informa tion Online using Patient Portal and [employer]rd [employer] Apps Indication:Nonsmoker Start:02-May-2022 Instruction Type:Patient Education Patient Instructions Indication:Nonsmoker Start:02-May-2022 Instruction Type:Provider Instructions for Treatment Patient Instructions Indication:BMI 20.0-20.9, adult Start:21-Jan-2022 Instruction Type:Provider Instructions for Treatment How to Access Health Informa tion Online using Patient Portal and [employer] Apps Indication:BMI 20.0-20.9, adult Start:21-Jan-2022 Instruction Type:Patient Education Patient Instructions Indication:BMI 20.0-20.9, adult Start:14-Jan-2022 Instruction Type:Provider Instructions for Treatment How to Access Health Informa tion Online using Patient Portal and [employer]rd [employer] Apps Indication:BMI 20.0-20.9, adult Start:14-Jan-2022 Instruction Type:Patient Education Patient Instructions Indication:Hypertension Start:07-Jan-2022 Instruction Type:Provider Instructions for Treatment How to Access Health Informa tion Online using Patient Portal and [employer]rd [employer] Apps Indication:Nonsmoker Start:07-Jan-2022 Instruction Type:Patient Education Patient Instructions Indication:Nonsmoker Start:15-Dec-2021 Instruction Type:Provider Instructions for Treatment How to Access Health Informa tion Online using Patient Portal and [employer]rd [employer] Apps Indication:Nonsmoker Start:15-Dec-2021 Instruction Type:Patient Education Patient Instructions Indication:Nonsmoker Start:25-Aug-2021 Instruction Type:Provider Instructions for Treatment How to Access Health Informa tion Online using Patient Portal and [employer] Apps Indication:Nonsmoker Start:25-Aug-2021 Instruction Type:Patient Education Patient Instructions Indication:Hypothyroidism Start:23-Apr-2021 Instruction Type:Provider Instructions for Treatment How to Access Health Informa tion Online using Patient Portal and [employer] Apps Indication:Nonsmoker Start:23-Apr-2021 Instruction Type:Patient Education Patient Instructions Indication:BMI 20.0-20.9, adult Start:17-Mar-2021 Instruction Type:Provider Instructions for Treatment How to Access Health Informa tion Online using Patient Portal and [employer]rd [employer] Apps Indication:Nonsmoker Start:17-Mar-2021 Instruction Type:Patient Education Patient Instructions Indication:Nonsmoker Start:21-Dec-2020 Instruction Type:Provider Instructions for Treatment How to Access Health Informa tion Online using Patient Portal and [employer] Apps Indication:Nonsmoker Start:21-Dec-2020 Instruction Type:Patient Education How to access health informa tion online Indication:Nonsmoker Start:19-Aug-2020 Instruction Type:Patient Education How to access health informa tion online - Detail Indication:Nonsmoker Start:19-Aug-2020 Instruction Type:Patient Education Patient Instructions Indication:Vitamin D insufficiency Start:19-Aug-2020 Instruction Type:Provider Instructions for Treatment How to access health informa tion online Indication:Nonsmoker Start:07-Apr-2020 Instruction Type:Patient Education How to access health informa tion online - Detail Indication:Nonsmoker Start:07-Apr-2020 Instruction Type:Patient Education Patient Instructions Indication:BMI 20.0-20.9, adult Start:07-Apr-2020 Instruction Type:Provider Instructions for Treatment How to access health informa tion online Indication:Nonsmoker Start:10-Jul-2019 Instruction Type:Patient Education How to access health informa tion online - Detail Indication:Nonsmoker Start:10-Jul-2019 Instruction Type:Patient Education Patient Instructions Indication:Nonsmoker Start:10-Jul-2019 Instruction Type:Provider Instructions for Treatment How to access health informa tion online Indication:BMI 20.0-20.9, adult Start:09-Apr-2019 Instruction Type:Patient Education How to access health informa tion online - Detail Indication:BMI 20.0-20.9, adult Start:09-Apr-2019 Instruction Type:Patient Education Patient Instructions Indication:Nonsmoker Start:09-Apr-2019 Instruction Type:Provider Instructions for Treatment How to access health informa tion online Indication:Pre-operative general physical examination Start:27-Feb-2019 Instruction Type:Patient Education How to access health informa tion online - Detail Indication:Pre-operative general physical examination Start:27-Feb-2019 Instruction Type:Patient Education Patient Instructions Indication:Pre-operative general physical examination Start:27-Feb-2019 Instruction Type:Provider Instructions for Treatment How to access health informa tion online Indication:Nonsmoker Start:24-Oct-2018 Instruction Type:Patient Education How to access health informa tion online - Detail Indication:Nonsmoker Start:24-Oct-2018 Instruction Type:Patient Education Patient Instructions Indication:Nonsmoker Start:24-Oct-2018 Instruction Type:Provider Instructions for Treatment How to access health informa tion online Indication:Nonsmoker Start:15-Oct-2018 Instruction Type:Patient Education How to access health informa tion online - Detail Indication:Nonsmoker Start:15-Oct-2018 Instruction Type:Patient Education Patient Instructions Indication:Nonsmoker Start:15-Oct-2018 Instruction Type:Provider Instructions for Treatment How to access health informa tion online Indication:Nonsmoker Start:03-Oct-2018 Instruction Type:Patient Education How to access health informa tion online - Detail Indication:Nonsmoker Start:03-Oct-2018 Instruction Type:Patient Education Patient Instructions Indication:Nonsmoker Start:03-Oct-2018 Instruction Type:Provider Instructions for Treatment How to access health informa tion online Indication:Nonsmoker Start:24-Jul-2018 Instruction Type:Patient Education How to access health informa tion online - Detail Indication:Nonsmoker Start:24-Jul-2018 Instruction Type:Patient Education Patient Instructions Indication:Nonsmoker Start:24-Jul-2018 Instruction Type:Provider Instructions for Treatment How to access health informa tion online - Detail Indication:Hypertension Start:20-Apr-2018 Instruction Type:Patient Education How to access health informa tion online Indication:Hypertension Start:20-Apr-2018 Instruction Type:Patient Education Patient Instructions Indication:BMI 20.0-20.9, adult Start:20-Apr-2018 Instruction Type:Provider Instructions for Treatment How to access health informa tion online Indication:Hypothyroidism Start:03-Apr-2018 Instruction Type:Patient Education How to access health informa tion online - Detail Indication:Hypothyroidism Start:03-Apr-2018 Instruction Type:Patient Education Patient Instructions Indication:Hypothyroidism Start:03-Apr-2018 Instruction Type:Provider Instructions for Treatment Patient Instructions Indication:Hypothyroidism Start:30-Aug-2017 Instruction Type:Provider Instructions for Treatment How to access health informa tion online Indication:Nonsmoker Start:30-Aug-2017 Instruction Type:Patient Education How to access health informa tion online - Detail Indication:Nonsmoker Start:30-Aug-2017 Instruction Type:Patient Education Patient Instructions Indication:Nonsmoker Start:30-Aug-2017 Instruction Type:Provider Instructions for Treatment DISCONTINUED - LIPID PANEL ( [id number]) Indication:Hyperlipidemia Start:27-Mar-2017 Instruction Type:Patient Education How to access health informa tion online Indication:Osteoporosis Start:27-Mar-2017 Instruction Type:Patient Education How to access health informa tion online - Detail Indication:Osteoporosis Start:27-Mar-2017 Instruction Type:Patient Education Patient Instructions Indication:Osteoporosis Start:27-Mar-2017 Instruction Type:Provider Instructions for Treatment Patient Instructions Indication:Leukopenia Start:24-Feb-2017 Instruction Type:Provider Instructions for Treatment How to access health informa tion online Indication:Hyperlipidemia Start:24-Feb-2017 Instruction Type:Patient Education How to access health informa tion online Indication:Hyperlipidemia Start:24-Feb-2017 Instruction Type:Patient Education How to access health informa tion online - Detail Indication:Hyperlipidemia Start:24-Feb-2017 Instruction Type:Patient Education Patient Instructions Indication:Leukopenia Start:24-Feb-2017 Instruction Type:Provider Instructions for Treatment [facility]; [facility] Work Phone: Instructions* Name Dates Details Patient Instructions Indication:Hypertension Start:04-Jan-2023 Instruction Type:Provider Instructions for Treatment How to Access Health Informa tion Online using Patient Portal and [employer] Apps Indication:Hypertension Start:04-Jan-2023 Instruction Type:Patient Education How to Access Health Informa tion Online using Patient Portal and [employer] Indication:Nonsmoker Start:05-Sep-2022 Instruction Type:Patient Education Patient Instructions Indication:Nonsmoker Start:05-Sep-2022 Instruction Type:Provider Instructions for Treatment How to Access Health Informa tion Online using Patient Portal and [employer] Apps Indication:Nonsmoker Start:02-May-2022 Instruction Type:Patient Education Patient Instructions Indication:Nonsmoker Start:02-May-2022 Instruction Type:Provider Instructions for Treatment Patient Instructions Indication:BMI 20.0-20.9, adult Start:21-Jan-2022 Instruction Type:Provider Instructions for Treatment How to Access Health Informa tion Online using Patient Portal and [employer] Apps Indication:BMI 20.0-20.9, adult Start:21-Jan-2022 Instruction Type:Patient Education Patient Instructions Indication:BMI 20.0-20.9, adult Start:14-Jan-2022 Instruction Type:Provider Instructions for Treatment How to Access Health Informa tion Online using Patient Portal and [employer] Apps Indication:BMI 20.0-20.9, adult Start:14-Jan-2022 Instruction Type:Patient Education Patient Instructions Indication:Hypertension Start:07-Jan-2022 Instruction Type:Provider Instructions for Treatment How to Access Health Informa tion Online using Patient Portal and [employer] Apps Indication:Nonsmoker Start:07-Jan-2022 Instruction Type:Patient Education Patient Instructions Indication:Nonsmoker Start:15-Dec-2021 Instruction Type:Provider Instructions for Treatment How to Access Health Informa tion Online using Patient Portal and [employer] Apps Indication:Nonsmoker Start:15-Dec-2021 Instruction Type:Patient Education Patient Instructions Indication:Nonsmoker Start:25-Aug-2021 Instruction Type:Provider Instructions for Treatment How to Access Health Informa tion Online using Patient Portal and [employer] Apps Indication:Nonsmoker Start:25-Aug-2021 Instruction Type:Patient Education Patient Instructions Indication:Hypothyroidism Start:23-Apr-2021 Instruction Type:Provider Instructions for Treatment How to Access Health Informa tion Online using Patient Portal and [employer] Apps Indication:Nonsmoker Start:23-Apr-2021 Instruction Type:Patient Education Patient Instructions Indication:BMI 20.0-20.9, adult Start:17-Mar-2021 Instruction Type:Provider Instructions for Treatment How to Access Health Informa tion Online using Patient Portal and [employer] Apps Indication:Nonsmoker Start:17-Mar-2021 Instruction Type:Patient Education Patient Instructions Indication:Nonsmoker Start:21-Dec-2020 Instruction Type:Provider Instructions for Treatment How to Access Health Informa tion Online using Patient Portal and [employer] Indication:Nonsmoker Start:21-Dec-2020 Instruction Type:Patient Education How to access health informa tion online Indication:Nonsmoker Start:19-Aug-2020 Instruction Type:Patient Education How to access health informa tion online - Detail Indication:Nonsmoker Start:19-Aug-2020 Instruction Type:Patient Education Patient Instructions Indication:Vitamin D insufficiency Start:19-Aug-2020 Instruction Type:Provider Instructions for Treatment How to access health informa tion online Indication:Nonsmoker Start:07-Apr-2020 Instruction Type:Patient Education How to access health informa tion online - Detail Indication:Nonsmoker Start:07-Apr-2020 Instruction Type:Patient Education Patient Instructions Indication:BMI 20.0-20.9, adult Start:07-Apr-2020 Instruction Type:Provider Instructions for Treatment How to access health informa tion online Indication:Nonsmoker Start:10-Jul-2019 Instruction Type:Patient Education How to access health informa tion online - Detail Indication:Nonsmoker Start:10-Jul-2019 Instruction Type:Patient Education Patient Instructions Indication:Nonsmoker Start:10-Jul-2019 Instruction Type:Provider Instructions for Treatment How to access health informa tion online Indication:BMI 20.0-20.9, adult Start:09-Apr-2019 Instruction Type:Patient Education How to access health informa tion online - Detail Indication:BMI 20.0-20.9, adult Start:09-Apr-2019 Instruction Type:Patient Education Patient Instructions Indication:Nonsmoker Start:09-Apr-2019 Instruction Type:Provider Instructions for Treatment How to access health informa tion online Indication:Pre-operative general physical examination Start:27-Feb-2019 Instruction Type:Patient Education How to access health informa tion online - Detail Indication:Pre-operative general physical examination Start:27-Feb-2019 Instruction Type:Patient Education Patient Instructions Indication:Pre-operative general physical examination Start:27-Feb-2019 Instruction Type:Provider Instructions for Treatment How to access health informa tion online Indication:Nonsmoker Start:24-Oct-2018 Instruction Type:Patient Education How to access health informa tion online - Detail Indication:Nonsmoker Start:24-Oct-2018 Instruction Type:Patient Education Patient Instructions Indication:Nonsmoker Start:24-Oct-2018 Instruction Type:Provider Instructions for Treatment How to access health informa tion online Indication:Nonsmoker Start:15-Oct-2018 Instruction Type:Patient Education How to access health informa tion online - Detail Indication:Nonsmoker Start:15-Oct-2018 Instruction Type:Patient Education Patient Instructions Indication:Nonsmoker Start:15-Oct-2018 Instruction Type:Provider Instructions for Treatment How to access health informa tion online Indication:Nonsmoker Start:03-Oct-2018 Instruction Type:Patient Education How to access health informa tion online - Detail Indication:Nonsmoker Start:03-Oct-2018 Instruction Type:Patient Education Patient Instructions Indication:Nonsmoker Start:03-Oct-2018 Instruction Type:Provider Instructions for Treatment How to access health informa tion online Indication:Nonsmoker Start:24-Jul-2018 Instruction Type:Patient Education How to access health informa tion online - Detail Indication:Nonsmoker Start:24-Jul-2018 Instruction Type:Patient Education Patient Instructions Indication:Nonsmoker Start:24-Jul-2018 Instruction Type:Provider Instructions for Treatment How to access health informa tion online - Detail Indication:Hypertension Start:20-Apr-2018 Instruction Type:Patient Education How to access health informa tion online Indication:Hypertension Start:20-Apr-2018 Instruction Type:Patient Education Patient Instructions Indication:BMI 20.0-20.9, adult Start:20-Apr-2018 Instruction Type:Provider Instructions for Treatment How to access health informa tion online Indication:Hypothyroidism Start:03-Apr-2018 Instruction Type:Patient Education How to access health informa tion online - Detail Indication:Hypothyroidism Start:03-Apr-2018 Instruction Type:Patient Education Patient Instructions Indication:Hypothyroidism Start:03-Apr-2018 Instruction Type:Provider Instructions for Treatment Patient Instructions Indication:Hypothyroidism Start:30-Aug-2017 Instruction Type:Provider Instructions for Treatment How to access health informa tion online Indication:Nonsmoker Start:30-Aug-2017 Instruction Type:Patient Education How to access health informa tion online - Detail Indication:Nonsmoker Start:30-Aug-2017 Instruction Type:Patient Education Patient Instructions Indication:Nonsmoker Start:30-Aug-2017 Instruction Type:Provider Instructions for Treatment DISCONTINUED - LIPID PANEL ( [id number]) Indication:Hyperlipidemia Start:27-Mar-2017 Instruction Type:Patient Education How to access health informa tion online Indication:Osteoporosis Start:27-Mar-2017 Instruction Type:Patient Education How to access health informa tion online - Detail Indication:Osteoporosis Start:27-Mar-2017 Instruction Type:Patient Education Patient Instructions Indication:Osteoporosis Start:27-Mar-2017 Instruction Type:Provider Instructions for Treatment Patient Instructions Indication:Leukopenia Start:24-Feb-2017 Instruction Type:Provider Instructions for Treatment How to access health informa tion online Indication:Hyperlipidemia Start:24-Feb-2017 Instruction Type:Patient Education How to access health informa tion online Indication:Hyperlipidemia Start:24-Feb-2017 Instruction Type:Patient Education How to access health informa tion online - Detail Indication:Hyperlipidemia Start:24-Feb-2017 Instruction Type:Patient Education Patient Instructions Indication:Leukopenia Start:24-Feb-2017 Instruction Type:Provider Instructions for Treatment [facility]; [facility] Work Phone: Instructions* Name Dates Details Patient Instructions Indication:Hypertension Start:04-Jan-2023 Instruction Type:Provider Instructions for Treatment How to Access Health Informa tion Online using Patient Portal and [employer] Apps Indication:Hypertension Start:04-Jan-2023 Instruction Type:Patient Education How to Access Health Informa tion Online using Patient Portal and [employer] Apps Indication:Nonsmoker Start:05-Sep-2022 Instruction Type:Patient Education Patient Instructions Indication:Nonsmoker Start:05-Sep-2022 Instruction Type:Provider Instructions for Treatment How to Access Health Informa tion Online using Patient Portal and [employer] Apps Indication:Nonsmoker Start:02-May-2022 Instruction Type:Patient Education Patient Instructions Indication:Nonsmoker Start:02-May-2022 Instruction Type:Provider Instructions for Treatment Patient Instructions Indication:BMI 20.0-20.9, adult Start:21-Jan-2022 Instruction Type:Provider Instructions for Treatment How to Access Health Informa tion Online using Patient Portal and [employer] Indication:BMI 20.0-20.9, adult Start:21-Jan-2022 Instruction Type:Patient Education Patient Instructions Indication:BMI 20.0-20.9, adult Start:14-Jan-2022 Instruction Type:Provider Instructions for Treatment How to Access Health Informa tion Online using Patient Portal and [employer] Indication:BMI 20.0-20.9, adult Start:14-Jan-2022 Instruction Type:Patient Education Patient Instructions Indication:Hypertension Start:07-Jan-2022 Instruction Type:Provider Instructions for Treatment How to Access Health Informa tion Online using Patient Portal and [employer] Apps Indication:Nonsmoker Start:07-Jan-2022 Instruction Type:Patient Education Patient Instructions Indication:Nonsmoker Start:15-Dec-2021 Instruction Type:Provider Instructions for Treatment How to Access Health Informa tion Online using Patient Portal and [employer] Apps Indication:Nonsmoker Start:15-Dec-2021 Instruction Type:Patient Education Patient Instructions Indication:Nonsmoker Start:25-Aug-2021 Instruction Type:Provider Instructions for Treatment How to Access Health Informa tion Online using Patient Portal and [employer] Indication:Nonsmoker Start:25-Aug-2021 Instruction Type:Patient Education Patient Instructions Indication:Hypothyroidism Start:23-Apr-2021 Instruction Type:Provider Instructions for Treatment How to Access Health Informa tion Online using Patient Portal and [employer] Apps Indication:Nonsmoker Start:23-Apr-2021 Instruction Type:Patient Education Patient Instructions Indication:BMI 20.0-20.9, adult Start:17-Mar-2021 Instruction Type:Provider Instructions for Treatment How to Access Health Informa tion Online using Patient Portal and [employer] Apps Indication:Nonsmoker Start:17-Mar-2021 Instruction Type:Patient Education Patient Instructions Indication:Nonsmoker Start:21-Dec-2020 Instruction Type:Provider Instructions for Treatment How to Access Health Informa tion Online using Patient Portal and [employer] Indication:Nonsmoker Start:21-Dec-2020 Instruction Type:Patient Education How to access health informa tion online Indication:Nonsmoker Start:19-Aug-2020 Instruction Type:Patient Education How to access health informa tion online - Detail Indication:Nonsmoker Start:19-Aug-2020 Instruction Type:Patient Education Patient Instructions Indication:Vitamin D insufficiency Start:19-Aug-2020 Instruction Type:Provider Instructions for Treatment How to access health informa tion online Indication:Nonsmoker Start:07-Apr-2020 Instruction Type:Patient Education How to access health informa tion online - Detail Indication:Nonsmoker Start:07-Apr-2020 Instruction Type:Patient Education Patient Instructions Indication:BMI 20.0-20.9, adult Start:07-Apr-2020 Instruction Type:Provider Instructions for Treatment How to access health informa tion online Indication:Nonsmoker Start:10-Jul-2019 Instruction Type:Patient Education How to access health informa tion online - Detail Indication:Nonsmoker Start:10-Jul-2019 Instruction Type:Patient Education Patient Instructions Indication:Nonsmoker Start:10-Jul-2019 Instruction Type:Provider Instructions for Treatment How to access health informa tion online Indication:BMI 20.0-20.9, adult Start:09-Apr-2019 Instruction Type:Patient Education How to access health informa tion online - Detail Indication:BMI 20.0-20.9, adult Start:09-Apr-2019 Instruction Type:Patient Education Patient Instructions Indication:Nonsmoker Start:09-Apr-2019 Instruction Type:Provider Instructions for Treatment How to access health informa tion online Indication:Pre-operative general physical examination Start:27-Feb-2019 Instruction Type:Patient Education How to access health informa tion online - Detail Indication:Pre-operative general physical examination Start:27-Feb-2019 Instruction Type:Patient Education Patient Instructions Indication:Pre-operative general physical examination Start:27-Feb-2019 Instruction Type:Provider Instructions for Treatment How to access health informa tion online Indication:Nonsmoker Start:24-Oct-2018 Instruction Type:Patient Education How to access health informa tion online - Detail Indication:Nonsmoker Start:24-Oct-2018 Instruction Type:Patient Education Patient Instructions Indication:Nonsmoker Start:24-Oct-2018 Instruction Type:Provider Instructions for Treatment How to access health informa tion online Indication:Nonsmoker Start:15-Oct-2018 Instruction Type:Patient Education How to access health informa tion online - Detail Indication:Nonsmoker Start:15-Oct-2018 Instruction Type:Patient Education Patient Instructions Indication:Nonsmoker Start:15-Oct-2018 Instruction Type:Provider Instructions for Treatment How to access health informa tion online Indication:Nonsmoker Start:03-Oct-2018 Instruction Type:Patient Education How to access health informa tion online - Detail Indication:Nonsmoker Start:03-Oct-2018 Instruction Type:Patient Education Patient Instructions Indication:Nonsmoker Start:03-Oct-2018 Instruction Type:Provider Instructions for Treatment How to access health informa tion online Indication:Nonsmoker Start:24-Jul-2018 Instruction Type:Patient Education How to access health informa tion online - Detail Indication:Nonsmoker Start:24-Jul-2018 Instruction Type:Patient Education Patient Instructions Indication:Nonsmoker Start:24-Jul-2018 Instruction Type:Provider Instructions for Treatment How to access health informa tion online - Detail Indication:Hypertension Start:20-Apr-2018 Instruction Type:Patient Education How to access health informa tion online Indication:Hypertension Start:20-Apr-2018 Instruction Type:Patient Education Patient Instructions Indication:BMI 20.0-20.9, adult Start:20-Apr-2018 Instruction Type:Provider Instructions for Treatment How to access health informa tion online Indication:Hypothyroidism Start:03-Apr-2018 Instruction Type:Patient Education How to access health informa tion online - Detail Indication:Hypothyroidism Start:03-Apr-2018 Instruction Type:Patient Education Patient Instructions Indication:Hypothyroidism Start:03-Apr-2018 Instruction Type:Provider Instructions for Treatment Patient Instructions Indication:Hypothyroidism Start:30-Aug-2017 Instruction Type:Provider Instructions for Treatment How to access health informa tion online Indication:Nonsmoker Start:30-Aug-2017 Instruction Type:Patient Education How to access health informa tion online - Detail Indication:Nonsmoker Start:30-Aug-2017 Instruction Type:Patient Education Patient Instructions Indication:Nonsmoker Start:30-Aug-2017 Instruction Type:Provider Instructions for Treatment DISCONTINUED - LIPID PANEL ( [id number]) Indication:Hyperlipidemia Start:27-Mar-2017 Instruction Type:Patient Education How to access health informa tion online Indication:Osteoporosis Start:27-Mar-2017 Instruction Type:Patient Education How to access health informa tion online - Detail Indication:Osteoporosis Start:27-Mar-2017 Instruction Type:Patient Education Patient Instructions Indication:Osteoporosis Start:27-Mar-2017 Instruction Type:Provider Instructions for Treatment Patient Instructions Indication:Leukopenia Start:24-Feb-2017 Instruction Type:Provider Instructions for Treatment How to access health informa tion online Indication:Hyperlipidemia Start:24-Feb-2017 Instruction Type:Patient Education How to access health informa tion online Indication:Hyperlipidemia Start:24-Feb-2017 Instruction Type:Patient Education How to access health informa tion online - Detail Indication:Hyperlipidemia Start:24-Feb-2017 Instruction Type:Patient Education Patient Instructions Indication:Leukopenia Start:24-Feb-2017 Instruction Type:Provider Instructions for Treatment [facility]; [facility] Work Phone: Instructions* Name Dates Details Patient Instructions Indication:Hypertension Start:04-Jan-2023 Instruction Type:Provider Instructions for Treatment How to Access Health Informa tion Online using Patient Portal and [employer] Apps Indication:Hypertension Start:04-Jan-2023 Instruction Type:Patient Education How to Access Health Informa tion Online using Patient Portal and [employer] Apps Indication:Nonsmoker Start:05-Sep-2022 Instruction Type:Patient Education Patient Instructions Indication:Nonsmoker Start:05-Sep-2022 Instruction Type:Provider Instructions for Treatment How to Access Health Informa tion Online using Patient Portal and [employer] Apps Indication:Nonsmoker Start:02-May-2022 Instruction Type:Patient Education Patient Instructions Indication:Nonsmoker Start:02-May-2022 Instruction Type:Provider Instructions for Treatment Patient Instructions Indication:BMI 20.0-20.9, adult Start:21-Jan-2022 Instruction Type:Provider Instructions for Treatment How to Access Health Informa tion Online using Patient Portal and [employer]rd [employer] Apps Indication:BMI 20.0-20.9, adult Start:21-Jan-2022 Instruction Type:Patient Education Patient Instructions Indication:BMI 20.0-20.9, adult Start:14-Jan-2022 Instruction Type:Provider Instructions for Treatment How to Access Health Informa tion Online using Patient Portal and [employer]rd [employer] Apps Indication:BMI 20.0-20.9, adult Start:14-Jan-2022 Instruction Type:Patient Education Patient Instructions Indication:Hypertension Start:07-Jan-2022 Instruction Type:Provider Instructions for Treatment How to Access Health Informa tion Online using Patient Portal and [employer]rd [employer] Apps Indication:Nonsmoker Start:07-Jan-2022 Instruction Type:Patient Education Patient Instructions Indication:Nonsmoker Start:15-Dec-2021 Instruction Type:Provider Instructions for Treatment How to Access Health Informa tion Online using Patient Portal and [employer]rd [employer] Apps Indication:Nonsmoker Start:15-Dec-2021 Instruction Type:Patient Education Patient Instructions Indication:Nonsmoker Start:25-Aug-2021 Instruction Type:Provider Instructions for Treatment How to Access Health Informa tion Online using Patient Portal and [employer]rd [employer] Apps Indication:Nonsmoker Start:25-Aug-2021 Instruction Type:Patient Education Patient Instructions Indication:Hypothyroidism Start:23-Apr-2021 Instruction Type:Provider Instructions for Treatment How to Access Health Informa tion Online using Patient Portal and [employer]rd [employer] Apps Indication:Nonsmoker Start:23-Apr-2021 Instruction Type:Patient Education Patient Instructions Indication:BMI 20.0-20.9, adult Start:17-Mar-2021 Instruction Type:Provider Instructions for Treatment How to Access Health Informa tion Online using Patient Portal and [employer]rd [employer] Apps Indication:Nonsmoker Start:17-Mar-2021 Instruction Type:Patient Education Patient Instructions Indication:Nonsmoker Start:21-Dec-2020 Instruction Type:Provider Instructions for Treatment How to Access Health Informa tion Online using Patient Portal and [employer]rd [employer] Apps Indication:Nonsmoker Start:21-Dec-2020 Instruction Type:Patient Education How to access health informa tion online Indication:Nonsmoker Start:19-Aug-2020 Instruction Type:Patient Education How to access health informa tion online - Detail Indication:Nonsmoker Start:19-Aug-2020 Instruction Type:Patient Education Patient Instructions Indication:Vitamin D insufficiency Start:19-Aug-2020 Instruction Type:Provider Instructions for Treatment How to access health informa tion online Indication:Nonsmoker Start:07-Apr-2020 Instruction Type:Patient Education How to access health informa tion online - Detail Indication:Nonsmoker Start:07-Apr-2020 Instruction Type:Patient Education Patient Instructions Indication:BMI 20.0-20.9, adult Start:07-Apr-2020 Instruction Type:Provider Instructions for Treatment How to access health informa tion online Indication:Nonsmoker Start:10-Jul-2019 Instruction Type:Patient Education How to access health informa tion online - Detail Indication:Nonsmoker Start:10-Jul-2019 Instruction Type:Patient Education Patient Instructions Indication:Nonsmoker Start:10-Jul-2019 Instruction Type:Provider Instructions for Treatment How to access health informa tion online Indication:BMI 20.0-20.9, adult Start:09-Apr-2019 Instruction Type:Patient Education How to access health informa tion online - Detail Indication:BMI 20.0-20.9, adult Start:09-Apr-2019 Instruction Type:Patient Education Patient Instructions Indication:Nonsmoker Start:09-Apr-2019 Instruction Type:Provider Instructions for Treatment How to access health informa tion online Indication:Pre-operative general physical examination Start:27-Feb-2019 Instruction Type:Patient Education How to access health informa tion online - Detail Indication:Pre-operative general physical examination Start:27-Feb-2019 Instruction Type:Patient Education Patient Instructions Indication:Pre-operative general physical examination Start:27-Feb-2019 Instruction Type:Provider Instructions for Treatment How to access health informa tion online Indication:Nonsmoker Start:24-Oct-2018 Instruction Type:Patient Education How to access health informa tion online - Detail Indication:Nonsmoker Start:24-Oct-2018 Instruction Type:Patient Education Patient Instructions Indication:Nonsmoker Start:24-Oct-2018 Instruction Type:Provider Instructions for Treatment How to access health informa tion online Indication:Nonsmoker Start:15-Oct-2018 Instruction Type:Patient Education How to access health informa tion online - Detail Indication:Nonsmoker Start:15-Oct-2018 Instruction Type:Patient Education Patient Instructions Indication:Nonsmoker Start:15-Oct-2018 Instruction Type:Provider Instructions for Treatment How to access health informa tion online Indication:Nonsmoker Start:03-Oct-2018 Instruction Type:Patient Education How to access health informa tion online - Detail Indication:Nonsmoker Start:03-Oct-2018 Instruction Type:Patient Education Patient Instructions Indication:Nonsmoker Start:03-Oct-2018 Instruction Type:Provider Instructions for Treatment How to access health informa tion online Indication:Nonsmoker Start:24-Jul-2018 Instruction Type:Patient Education How to access health informa tion online - Detail Indication:Nonsmoker Start:24-Jul-2018 Instruction Type:Patient Education Patient Instructions Indication:Nonsmoker Start:24-Jul-2018 Instruction Type:Provider Instructions for Treatment How to access health informa tion online - Detail Indication:Hypertension Start:20-Apr-2018 Instruction Type:Patient Education How to access health informa tion online Indication:Hypertension Start:20-Apr-2018 Instruction Type:Patient Education Patient Instructions Indication:BMI 20.0-20.9, adult Start:20-Apr-2018 Instruction Type:Provider Instructions for Treatment How to access health informa tion online Indication:Hypothyroidism Start:03-Apr-2018 Instruction Type:Patient Education How to access health informa tion online - Detail Indication:Hypothyroidism Start:03-Apr-2018 Instruction Type:Patient Education Patient Instructions Indication:Hypothyroidism Start:03-Apr-2018 Instruction Type:Provider Instructions for Treatment Patient Instructions Indication:Hypothyroidism Start:30-Aug-2017 Instruction Type:Provider Instructions for Treatment How to access health informa tion online Indication:Nonsmoker Start:30-Aug-2017 Instruction Type:Patient Education How to access health informa tion online - Detail Indication:Nonsmoker Start:30-Aug-2017 Instruction Type:Patient Education Patient Instructions Indication:Nonsmoker Start:30-Aug-2017 Instruction Type:Provider Instructions for Treatment DISCONTINUED - LIPID PANEL ( [id number]) Indication:Hyperlipidemia Start:27-Mar-2017 Instruction Type:Patient Education How to access health informa tion online Indication:Osteoporosis Start:27-Mar-2017 Instruction Type:Patient Education How to access health informa tion online - Detail Indication:Osteoporosis Start:27-Mar-2017 Instruction Type:Patient Education Patient Instructions Indication:Osteoporosis Start:27-Mar-2017 Instruction Type:Provider Instructions for Treatment Patient Instructions Indication:Leukopenia Start:24-Feb-2017 Instruction Type:Provider Instructions for Treatment How to access health informa tion online Indication:Hyperlipidemia Start:24-Feb-2017 Instruction Type:Patient Education How to access health informa tion online Indication:Hyperlipidemia Start:24-Feb-2017 Instruction Type:Patient Education How to access health informa tion online - Detail Indication:Hyperlipidemia Start:24-Feb-2017 Instruction Type:Patient Education Patient Instructions Indication:Leukopenia Start:24-Feb-2017 Instruction Type:Provider Instructions for Treatment [facility]; [facility] Work Phone: Instructions* Name Dates Details Patient Instructions Indication:Body mass index [BMI] 19.9 or less, adult Start:12-Jul-2023 Instruction Type:Provider Instructions for Treatment How to Access Health Informa tion Online using Patient Portal and [employer]rd [employer] Apps Indication:Body mass index [BMI] 19.9 or less, adult Start:12-Jul-2023 Instruction Type:Patient Education Patient Instructions Indication:Hypertension Start:04-Jan-2023 Instruction Type:Provider Instructions for Treatment How to Access Health Informa tion Online using Patient Portal and [employer]rd [employer] Apps Indication:Hypertension Start:04-Jan-2023 Instruction Type:Patient Education How to Access Health Informa tion Online using Patient Portal and [employer]rd [employer] Apps Indication:Nonsmoker Start:05-Sep-2022 Instruction Type:Patient Education Patient Instructions Indication:Nonsmoker Start:05-Sep-2022 Instruction Type:Provider Instructions for Treatment How to Access Health Informa tion Online using Patient Portal and [employer]rd [employer] Apps Indication:Nonsmoker Start:02-May-2022 Instruction Type:Patient Education Patient Instructions Indication:Nonsmoker Start:02-May-2022 Instruction Type:Provider Instructions for Treatment Patient Instructions Indication:BMI 20.0-20.9, adult Start:21-Jan-2022 Instruction Type:Provider Instructions for Treatment How to Access Health Informa tion Online using Patient Portal and [employer]rd [employer] Apps Indication:BMI 20.0-20.9, adult Start:21-Jan-2022 Instruction Type:Patient Education Patient Instructions Indication:BMI 20.0-20.9, adult Start:14-Jan-2022 Instruction Type:Provider Instructions for Treatment How to Access Health Informa tion Online using Patient Portal and [employer]rd [employer] Apps Indication:BMI 20.0-20.9, adult Start:14-Jan-2022 Instruction Type:Patient Education Patient Instructions Indication:Hypertension Start:07-Jan-2022 Instruction Type:Provider Instructions for Treatment How to Access Health Informa tion Online using Patient Portal and [employer]rd [employer] Apps Indication:Nonsmoker Start:07-Jan-2022 Instruction Type:Patient Education Patient Instructions Indication:Nonsmoker Start:15-Dec-2021 Instruction Type:Provider Instructions for Treatment How to Access Health Informa tion Online using Patient Portal and [employer]rd [employer] Apps Indication:Nonsmoker Start:15-Dec-2021 Instruction Type:Patient Education Patient Instructions Indication:Nonsmoker Start:25-Aug-2021 Instruction Type:Provider Instructions for Treatment How to Access Health Informa tion Online using Patient Portal and [employer] Apps Indication:Nonsmoker Start:25-Aug-2021 Instruction Type:Patient Education Patient Instructions Indication:Hypothyroidism Start:23-Apr-2021 Instruction Type:Provider Instructions for Treatment How to Access Health Informa tion Online using Patient Portal and [employer]rd [employer] Apps Indication:Nonsmoker Start:23-Apr-2021 Instruction Type:Patient Education Patient Instructions Indication:BMI 20.0-20.9, adult Start:17-Mar-2021 Instruction Type:Provider Instructions for Treatment How to Access Health Informa tion Online using Patient Portal and [employer]rd [employer] Apps Indication:Nonsmoker Start:17-Mar-2021 Instruction Type:Patient Education Patient Instructions Indication:Nonsmoker Start:21-Dec-2020 Instruction Type:Provider Instructions for Treatment How to Access Health Informa tion Online using Patient Portal and [employer] Apps Indication:Nonsmoker Start:21-Dec-2020 Instruction Type:Patient Education How to access health informa tion online Indication:Nonsmoker Start:19-Aug-2020 Instruction Type:Patient Education How to access health informa tion online - Detail Indication:Nonsmoker Start:19-Aug-2020 Instruction Type:Patient Education Patient Instructions Indication:Vitamin D insufficiency Start:19-Aug-2020 Instruction Type:Provider Instructions for Treatment How to access health informa tion online Indication:Nonsmoker Start:07-Apr-2020 Instruction Type:Patient Education How to access health informa tion online - Detail Indication:Nonsmoker Start:07-Apr-2020 Instruction Type:Patient Education Patient Instructions Indication:BMI 20.0-20.9, adult Start:07-Apr-2020 Instruction Type:Provider Instructions for Treatment How to access health informa tion online Indication:Nonsmoker Start:10-Jul-2019 Instruction Type:Patient Education How to access health informa tion online - Detail Indication:Nonsmoker Start:10-Jul-2019 Instruction Type:Patient Education Patient Instructions Indication:Nonsmoker Start:10-Jul-2019 Instruction Type:Provider Instructions for Treatment How to access health informa tion online Indication:BMI 20.0-20.9, adult Start:09-Apr-2019 Instruction Type:Patient Education How to access health informa tion online - Detail Indication:BMI 20.0-20.9, adult Start:09-Apr-2019 Instruction Type:Patient Education Patient Instructions Indication:Nonsmoker Start:09-Apr-2019 Instruction Type:Provider Instructions for Treatment How to access health informa tion online Indication:Pre-operative general physical examination Start:27-Feb-2019 Instruction Type:Patient Education How to access health informa tion online - Detail Indication:Pre-operative general physical examination Start:27-Feb-2019 Instruction Type:Patient Education Patient Instructions Indication:Pre-operative general physical examination Start:27-Feb-2019 Instruction Type:Provider Instructions for Treatment How to access health informa tion online Indication:Nonsmoker Start:24-Oct-2018 Instruction Type:Patient Education How to access health informa tion online - Detail Indication:Nonsmoker Start:24-Oct-2018 Instruction Type:Patient Education Patient Instructions Indication:Nonsmoker Start:24-Oct-2018 Instruction Type:Provider Instructions for Treatment How to access health informa tion online Indication:Nonsmoker Start:15-Oct-2018 Instruction Type:Patient Education How to access health informa tion online - Detail Indication:Nonsmoker Start:15-Oct-2018 Instruction Type:Patient Education Patient Instructions Indication:Nonsmoker Start:15-Oct-2018 Instruction Type:Provider Instructions for Treatment How to access health informa tion online Indication:Nonsmoker Start:03-Oct-2018 Instruction Type:Patient Education How to access health informa tion online - Detail Indication:Nonsmoker Start:03-Oct-2018 Instruction Type:Patient Education Patient Instructions Indication:Nonsmoker Start:03-Oct-2018 Instruction Type:Provider Instructions for Treatment How to access health informa tion online Indication:Nonsmoker Start:24-Jul-2018 Instruction Type:Patient Education How to access health informa tion online - Detail Indication:Nonsmoker Start:24-Jul-2018 Instruction Type:Patient Education Patient Instructions Indication:Nonsmoker Start:24-Jul-2018 Instruction Type:Provider Instructions for Treatment How to access health informa tion online - Detail Indication:Hypertension Start:20-Apr-2018 Instruction Type:Patient Education How to access health informa tion online Indication:Hypertension Start:20-Apr-2018 Instruction Type:Patient Education Patient Instructions Indication:BMI 20.0-20.9, adult Start:20-Apr-2018 Instruction Type:Provider Instructions for Treatment How to access health informa tion online Indication:Hypothyroidism Start:03-Apr-2018 Instruction Type:Patient Education How to access health informa tion online - Detail Indication:Hypothyroidism Start:03-Apr-2018 Instruction Type:Patient Education Patient Instructions Indication:Hypothyroidism Start:03-Apr-2018 Instruction Type:Provider Instructions for Treatment Patient Instructions Indication:Hypothyroidism Start:30-Aug-2017 Instruction Type:Provider Instructions for Treatment How to access health informa tion online Indication:Nonsmoker Start:30-Aug-2017 Instruction Type:Patient Education How to access health informa tion online - Detail Indication:Nonsmoker Start:30-Aug-2017 Instruction Type:Patient Education Patient Instructions Indication:Nonsmoker Start:30-Aug-2017 Instruction Type:Provider Instructions for Treatment DISCONTINUED - LIPID PANEL ( [id number]) Indication:Hyperlipidemia Start:27-Mar-2017 Instruction Type:Patient Education How to access health informa tion online Indication:Osteoporosis Start:27-Mar-2017 Instruction Type:Patient Education How to access health informa tion online - Detail Indication:Osteoporosis Start:27-Mar-2017 Instruction Type:Patient Education Patient Instructions Indication:Osteoporosis Start:27-Mar-2017 Instruction Type:Provider Instructions for Treatment Patient Instructions Indication:Leukopenia Start:24-Feb-2017 Instruction Type:Provider Instructions for Treatment How to access health informa tion online Indication:Hyperlipidemia Start:24-Feb-2017 Instruction Type:Patient Education How to access health informa tion online Indication:Hyperlipidemia Start:24-Feb-2017 Instruction Type:Patient Education How to access health informa tion online - Detail Indication:Hyperlipidemia Start:24-Feb-2017 Instruction Type:Patient Education Patient Instructions Indication:Leukopenia Start:24-Feb-2017 Instruction Type:Provider Instructions for Treatment [facility]; [facility] Work Phone: Instructions* Name Dates Details Patient Instructions Indication:Body mass index [BMI] 19.9 or less, adult Start:12-Jul-2023 Instruction Type:Provider Instructions for Treatment How to Access Health Informa tion Online using Patient Portal and [employer] Apps Indication:Body mass index [BMI] 19.9 or less, adult Start:12-Jul-2023 Instruction Type:Patient Education Patient Instructions Indication:Hypertension Start:04-Jan-2023 Instruction Type:Provider Instructions for Treatment How to Access Health Informa tion Online using Patient Portal and [employer] Apps Indication:Hypertension Start:04-Jan-2023 Instruction Type:Patient Education How to Access Health Informa tion Online using Patient Portal and [employer]rd [employer] Apps Indication:Nonsmoker Start:05-Sep-2022 Instruction Type:Patient Education Patient Instructions Indication:Nonsmoker Start:05-Sep-2022 Instruction Type:Provider Instructions for Treatment How to Access Health Informa tion Online using Patient Portal and [employer]rd [employer] Apps Indication:Nonsmoker Start:02-May-2022 Instruction Type:Patient Education Patient Instructions Indication:Nonsmoker Start:02-May-2022 Instruction Type:Provider Instructions for Treatment Patient Instructions Indication:BMI 20.0-20.9, adult Start:21-Jan-2022 Instruction Type:Provider Instructions for Treatment How to Access Health Informa tion Online using Patient Portal and [employer]rd [employer] Apps Indication:BMI 20.0-20.9, adult Start:21-Jan-2022 Instruction Type:Patient Education Patient Instructions Indication:BMI 20.0-20.9, adult Start:14-Jan-2022 Instruction Type:Provider Instructions for Treatment How to Access Health Informa tion Online using Patient Portal and [employer] Apps Indication:BMI 20.0-20.9, adult Start:14-Jan-2022 Instruction Type:Patient Education Patient Instructions Indication:Hypertension Start:07-Jan-2022 Instruction Type:Provider Instructions for Treatment How to Access Health Informa tion Online using Patient Portal and [employer] Apps Indication:Nonsmoker Start:07-Jan-2022 Instruction Type:Patient Education Patient Instructions Indication:Nonsmoker Start:15-Dec-2021 Instruction Type:Provider Instructions for Treatment How to Access Health Informa tion Online using Patient Portal and [employer] Apps Indication:Nonsmoker Start:15-Dec-2021 Instruction Type:Patient Education Patient Instructions Indication:Nonsmoker Start:25-Aug-2021 Instruction Type:Provider Instructions for Treatment How to Access Health Informa tion Online using Patient Portal and [employer] Apps Indication:Nonsmoker Start:25-Aug-2021 Instruction Type:Patient Education Patient Instructions Indication:Hypothyroidism Start:23-Apr-2021 Instruction Type:Provider Instructions for Treatment How to Access Health Informa tion Online using Patient Portal and [employer] Apps Indication:Nonsmoker Start:23-Apr-2021 Instruction Type:Patient Education Patient Instructions Indication:BMI 20.0-20.9, adult Start:17-Mar-2021 Instruction Type:Provider Instructions for Treatment How to Access Health Informa tion Online using Patient Portal and [employer] Apps Indication:Nonsmoker Start:17-Mar-2021 Instruction Type:Patient Education Patient Instructions Indication:Nonsmoker Start:21-Dec-2020 Instruction Type:Provider Instructions for Treatment How to Access Health Informa tion Online using Patient Portal and [employer] Apps Indication:Nonsmoker Start:21-Dec-2020 Instruction Type:Patient Education How to access health informa tion online Indication:Nonsmoker Start:19-Aug-2020 Instruction Type:Patient Education How to access health informa tion online - Detail Indication:Nonsmoker Start:19-Aug-2020 Instruction Type:Patient Education Patient Instructions Indication:Vitamin D insufficiency Start:19-Aug-2020 Instruction Type:Provider Instructions for Treatment How to access health informa tion online Indication:Nonsmoker Start:07-Apr-2020 Instruction Type:Patient Education How to access health informa tion online - Detail Indication:Nonsmoker Start:07-Apr-2020 Instruction Type:Patient Education Patient Instructions Indication:BMI 20.0-20.9, adult Start:07-Apr-2020 Instruction Type:Provider Instructions for Treatment How to access health informa tion online Indication:Nonsmoker Start:10-Jul-2019 Instruction Type:Patient Education How to access health informa tion online - Detail Indication:Nonsmoker Start:10-Jul-2019 Instruction Type:Patient Education Patient Instructions Indication:Nonsmoker Start:10-Jul-2019 Instruction Type:Provider Instructions for Treatment How to access health informa tion online Indication:BMI 20.0-20.9, adult Start:09-Apr-2019 Instruction Type:Patient Education How to access health informa tion online - Detail Indication:BMI 20.0-20.9, adult Start:09-Apr-2019 Instruction Type:Patient Education Patient Instructions Indication:Nonsmoker Start:09-Apr-2019 Instruction Type:Provider Instructions for Treatment How to access health informa tion online Indication:Pre-operative general physical examination Start:27-Feb-2019 Instruction Type:Patient Education How to access health informa tion online - Detail Indication:Pre-operative general physical examination Start:27-Feb-2019 Instruction Type:Patient Education Patient Instructions Indication:Pre-operative general physical examination Start:27-Feb-2019 Instruction Type:Provider Instructions for Treatment How to access health informa tion online Indication:Nonsmoker Start:24-Oct-2018 Instruction Type:Patient Education How to access health informa tion online - Detail Indication:Nonsmoker Start:24-Oct-2018 Instruction Type:Patient Education Patient Instructions Indication:Nonsmoker Start:24-Oct-2018 Instruction Type:Provider Instructions for Treatment How to access health informa tion online Indication:Nonsmoker Start:15-Oct-2018 Instruction Type:Patient Education How to access health informa tion online - Detail Indication:Nonsmoker Start:15-Oct-2018 Instruction Type:Patient Education Patient Instructions Indication:Nonsmoker Start:15-Oct-2018 Instruction Type:Provider Instructions for Treatment How to access health informa tion online Indication:Nonsmoker Start:03-Oct-2018 Instruction Type:Patient Education How to access health informa tion online - Detail Indication:Nonsmoker Start:03-Oct-2018 Instruction Type:Patient Education Patient Instructions Indication:Nonsmoker Start:03-Oct-2018 Instruction Type:Provider Instructions for Treatment How to access health informa tion online Indication:Nonsmoker Start:24-Jul-2018 Instruction Type:Patient Education How to access health informa tion online - Detail Indication:Nonsmoker Start:24-Jul-2018 Instruction Type:Patient Education Patient Instructions Indication:Nonsmoker Start:24-Jul-2018 Instruction Type:Provider Instructions for Treatment How to access health informa tion online - Detail Indication:Hypertension Start:20-Apr-2018 Instruction Type:Patient Education How to access health informa tion online Indication:Hypertension Start:20-Apr-2018 Instruction Type:Patient Education Patient Instructions Indication:BMI 20.0-20.9, adult Start:20-Apr-2018 Instruction Type:Provider Instructions for Treatment How to access health informa tion online Indication:Hypothyroidism Start:03-Apr-2018 Instruction Type:Patient Education How to access health informa tion online - Detail Indication:Hypothyroidism Start:03-Apr-2018 Instruction Type:Patient Education Patient Instructions Indication:Hypothyroidism Start:03-Apr-2018 Instruction Type:Provider Instructions for Treatment Patient Instructions Indication:Hypothyroidism Start:30-Aug-2017 Instruction Type:Provider Instructions for Treatment How to access health informa tion online Indication:Nonsmoker Start:30-Aug-2017 Instruction Type:Patient Education How to access health informa tion online - Detail Indication:Nonsmoker Start:30-Aug-2017 Instruction Type:Patient Education Patient Instructions Indication:Nonsmoker Start:30-Aug-2017 Instruction Type:Provider Instructions for Treatment DISCONTINUED - LIPID PANEL ( [id number]) Indication:Hyperlipidemia Start:27-Mar-2017 Instruction Type:Patient Education How to access health informa tion online Indication:Osteoporosis Start:27-Mar-2017 Instruction Type:Patient Education How to access health informa tion online - Detail Indication:Osteoporosis Start:27-Mar-2017 Instruction Type:Patient Education Patient Instructions Indication:Osteoporosis Start:27-Mar-2017 Instruction Type:Provider Instructions for Treatment Patient Instructions Indication:Leukopenia Start:24-Feb-2017 Instruction Type:Provider Instructions for Treatment How to access health informa tion online Indication:Hyperlipidemia Start:24-Feb-2017 Instruction Type:Patient Education How to access health informa tion online Indication:Hyperlipidemia Start:24-Feb-2017 Instruction Type:Patient Education How to access health informa tion online - Detail Indication:Hyperlipidemia Start:24-Feb-2017 Instruction Type:Patient Education Patient Instructions Indication:Leukopenia Start:24-Feb-2017 Instruction Type:Provider Instructions for Treatment [facility]; [facility] Work Phone: Instructions* Name Dates Details Patient Instructions Indication:Body mass index [BMI] 19.9 or less, adult Start:12-Jul-2023 Instruction Type:Provider Instructions for Treatment How to Access Health Informa tion Online using Patient Portal and [employer]rd [employer] Apps Indication:Body mass index [BMI] 19.9 or less, adult Start:12-Jul-2023 Instruction Type:Patient Education Patient Instructions Indication:Hypertension Start:04-Jan-2023 Instruction Type:Provider Instructions for Treatment How to Access Health Informa tion Online using Patient Portal and [employer]rd [employer] Apps Indication:Hypertension Start:04-Jan-2023 Instruction Type:Patient Education How to Access Health Informa tion Online using Patient Portal and [employer]rd [employer] Apps Indication:Nonsmoker Start:05-Sep-2022 Instruction Type:Patient Education Patient Instructions Indication:Nonsmoker Start:05-Sep-2022 Instruction Type:Provider Instructions for Treatment How to Access Health Informa tion Online using Patient Portal and [employer]rd [employer] Apps Indication:Nonsmoker Start:02-May-2022 Instruction Type:Patient Education Patient Instructions Indication:Nonsmoker Start:02-May-2022 Instruction Type:Provider Instructions for Treatment Patient Instructions Indication:BMI 20.0-20.9, adult Start:21-Jan-2022 Instruction Type:Provider Instructions for Treatment How to Access Health Informa tion Online using Patient Portal and [employer]rd [employer] Apps Indication:BMI 20.0-20.9, adult Start:21-Jan-2022 Instruction Type:Patient Education Patient Instructions Indication:BMI 20.0-20.9, adult Start:14-Jan-2022 Instruction Type:Provider Instructions for Treatment How to Access Health Informa tion Online using Patient Portal and [employer]rd [employer] Apps Indication:BMI 20.0-20.9, adult Start:14-Jan-2022 Instruction Type:Patient Education Patient Instructions Indication:Hypertension Start:07-Jan-2022 Instruction Type:Provider Instructions for Treatment How to Access Health Informa tion Online using Patient Portal and [employer]rd [employer] Apps Indication:Nonsmoker Start:07-Jan-2022 Instruction Type:Patient Education Patient Instructions Indication:Nonsmoker Start:15-Dec-2021 Instruction Type:Provider Instructions for Treatment How to Access Health Informa tion Online using Patient Portal and [employer]rd [employer] Apps Indication:Nonsmoker Start:15-Dec-2021 Instruction Type:Patient Education Patient Instructions Indication:Nonsmoker Start:25-Aug-2021 Instruction Type:Provider Instructions for Treatment How to Access Health Informa tion Online using Patient Portal and [employer]rd [employer] Apps Indication:Nonsmoker Start:25-Aug-2021 Instruction Type:Patient Education Patient Instructions Indication:Hypothyroidism Start:23-Apr-2021 Instruction Type:Provider Instructions for Treatment How to Access Health Informa tion Online using Patient Portal and [employer]rd [employer] Apps Indication:Nonsmoker Start:23-Apr-2021 Instruction Type:Patient Education Patient Instructions Indication:BMI 20.0-20.9, adult Start:17-Mar-2021 Instruction Type:Provider Instructions for Treatment How to Access Health Informa tion Online using Patient Portal and [employer]rd [employer] Apps Indication:Nonsmoker Start:17-Mar-2021 Instruction Type:Patient Education Patient Instructions Indication:Nonsmoker Start:21-Dec-2020 Instruction Type:Provider Instructions for Treatment How to Access Health Informa tion Online using Patient Portal and [employer]rd [employer] Apps Indication:Nonsmoker Start:21-Dec-2020 Instruction Type:Patient Education How to access health informa tion online Indication:Nonsmoker Start:19-Aug-2020 Instruction Type:Patient Education How to access health informa tion online - Detail Indication:Nonsmoker Start:19-Aug-2020 Instruction Type:Patient Education Patient Instructions Indication:Vitamin D insufficiency Start:19-Aug-2020 Instruction Type:Provider Instructions for Treatment How to access health informa tion online Indication:Nonsmoker Start:07-Apr-2020 Instruction Type:Patient Education How to access health informa tion online - Detail Indication:Nonsmoker Start:07-Apr-2020 Instruction Type:Patient Education Patient Instructions Indication:BMI 20.0-20.9, adult Start:07-Apr-2020 Instruction Type:Provider Instructions for Treatment How to access health informa tion online Indication:Nonsmoker Start:10-Jul-2019 Instruction Type:Patient Education How to access health informa tion online - Detail Indication:Nonsmoker Start:10-Jul-2019 Instruction Type:Patient Education Patient Instructions Indication:Nonsmoker Start:10-Jul-2019 Instruction Type:Provider Instructions for Treatment How to access health informa tion online Indication:BMI 20.0-20.9, adult Start:09-Apr-2019 Instruction Type:Patient Education How to access health informa tion online - Detail Indication:BMI 20.0-20.9, adult Start:09-Apr-2019 Instruction Type:Patient Education Patient Instructions Indication:Nonsmoker Start:09-Apr-2019 Instruction Type:Provider Instructions for Treatment How to access health informa tion online Indication:Pre-operative general physical examination Start:27-Feb-2019 Instruction Type:Patient Education How to access health informa tion online - Detail Indication:Pre-operative general physical examination Start:27-Feb-2019 Instruction Type:Patient Education Patient Instructions Indication:Pre-operative general physical examination Start:27-Feb-2019 Instruction Type:Provider Instructions for Treatment How to access health informa tion online Indication:Nonsmoker Start:24-Oct-2018 Instruction Type:Patient Education How to access health informa tion online - Detail Indication:Nonsmoker Start:24-Oct-2018 Instruction Type:Patient Education Patient Instructions Indication:Nonsmoker Start:24-Oct-2018 Instruction Type:Provider Instructions for Treatment How to access health informa tion online Indication:Nonsmoker Start:15-Oct-2018 Instruction Type:Patient Education How to access health informa tion online - Detail Indication:Nonsmoker Start:15-Oct-2018 Instruction Type:Patient Education Patient Instructions Indication:Nonsmoker Start:15-Oct-2018 Instruction Type:Provider Instructions for Treatment How to access health informa tion online Indication:Nonsmoker Start:03-Oct-2018 Instruction Type:Patient Education How to access health informa tion online - Detail Indication:Nonsmoker Start:03-Oct-2018 Instruction Type:Patient Education Patient Instructions Indication:Nonsmoker Start:03-Oct-2018 Instruction Type:Provider Instructions for Treatment How to access health informa tion online Indication:Nonsmoker Start:24-Jul-2018 Instruction Type:Patient Education How to access health informa tion online - Detail Indication:Nonsmoker Start:24-Jul-2018 Instruction Type:Patient Education Patient Instructions Indication:Nonsmoker Start:24-Jul-2018 Instruction Type:Provider Instructions for Treatment How to access health informa tion online - Detail Indication:Hypertension Start:20-Apr-2018 Instruction Type:Patient Education How to access health informa tion online Indication:Hypertension Start:20-Apr-2018 Instruction Type:Patient Education Patient Instructions Indication:BMI 20.0-20.9, adult Start:20-Apr-2018 Instruction Type:Provider Instructions for Treatment How to access health informa tion online Indication:Hypothyroidism Start:03-Apr-2018 Instruction Type:Patient Education How to access health informa tion online - Detail Indication:Hypothyroidism Start:03-Apr-2018 Instruction Type:Patient Education Patient Instructions Indication:Hypothyroidism Start:03-Apr-2018 Instruction Type:Provider Instructions for Treatment Patient Instructions Indication:Hypothyroidism Start:30-Aug-2017 Instruction Type:Provider Instructions for Treatment How to access health informa tion online Indication:Nonsmoker Start:30-Aug-2017 Instruction Type:Patient Education How to access health informa tion online - Detail Indication:Nonsmoker Start:30-Aug-2017 Instruction Type:Patient Education Patient Instructions Indication:Nonsmoker Start:30-Aug-2017 Instruction Type:Provider Instructions for Treatment DISCONTINUED - LIPID PANEL ( [id number]) Indication:Hyperlipidemia Start:27-Mar-2017 Instruction Type:Patient Education How to access health informa tion online Indication:Osteoporosis Start:27-Mar-2017 Instruction Type:Patient Education How to access health informa tion online - Detail Indication:Osteoporosis Start:27-Mar-2017 Instruction Type:Patient Education Patient Instructions Indication:Osteoporosis Start:27-Mar-2017 Instruction Type:Provider Instructions for Treatment Patient Instructions Indication:Leukopenia Start:24-Feb-2017 Instruction Type:Provider Instructions for Treatment How to access health informa tion online Indication:Hyperlipidemia Start:24-Feb-2017 Instruction Type:Patient Education How to access health informa tion online Indication:Hyperlipidemia Start:24-Feb-2017 Instruction Type:Patient Education How to access health informa tion online - Detail Indication:Hyperlipidemia Start:24-Feb-2017 Instruction Type:Patient Education Patient Instructions Indication:Leukopenia Start:24-Feb-2017 Instruction Type:Provider Instructions for Treatment [facility]; [facility] Work Phone: Family History No Family History Records FoundUnknown Family Member Name Dates Details Father Comments:Bladder, cancer Status:Active Mother Comments:HTN, CHF Status:Active Unknown Family Member Name Dates Details Father Comments:Bladder, cancer Status:Active Mother Comments:HTN, CHF Status:Active Unknown Family Member Name Dates Details Father Comments:Bladder, cancer Status:Active Mother Comments:HTN, CHF Status:Active Unknown Family Member Name Dates Details Father Comments:Bladder, cancer Status:Active Mother Comments:HTN, CHF Status:Active Unknown Family Member Name Dates Details Father Comments:Bladder, cancer Status:Active Mother Comments:HTN, CHF Status:Active Unknown Family Member Name Dates Details Father Comments:Bladder, cancer Status:Active Mother Comments:HTN, CHF Status:Active Unknown Family Member Name Dates Details Father Comments:Bladder, cancer Status:Active Mother Comments:HTN, CHF Status:Active Unknown Family Member Name Dates Details Father Comments:Bladder, cancer Status:Active Mother Comments:HTN, CHF Status:Active Unknown Family Member Name Dates Details Father Comments:Bladder, cancer Status:Active Mother Comments:HTN, CHF Status:Active Unknown Family Member Name Dates Details Father Comments:Bladder, cancer Status:Active Mother Comments:HTN, CHF Status:Active Unknown Family Member Name Dates Details Father Comments:Bladder, cancer Status:Active Mother Comments:HTN, CHF Status:Active Unknown Family Member Name Dates Details Father Comments:Bladder, cancer Status:Active Mother Comments:HTN, CHF Status:Active Unknown Family Member Name Dates Details Father Comments:Bladder, cancer Status:Active Mother Comments:HTN, CHF Status:Active Unknown Family Member Name Dates Details Father Comments:Bladder, cancer Status:Active Mother Comments:HTN, CHF Status:Active Unknown Family Member Name Dates Details Father Comments:Bladder, cancer Status:Active Mother Comments:HTN, CHF Status:Active Unknown Family Member Name Dates Details Father Comments:Bladder, cancer Status:Active Mother Comments:HTN, CHF Status:Active Unknown Family Member Name Dates Details Father Comments:Bladder, cancer Status:Active Mother Comments:HTN, CHF Status:Active Unknown Family Member Name Dates Details Father Comments:Bladder, cancer Status:Active Mother Comments:HTN, CHF Status:Active Unknown Family Member Name Dates Details Father Comments:Bladder, cancer Status:Active Mother Comments:HTN, CHF Status:Active Unknown Family Member Name Dates Details Father Comments:Bladder, cancer Status:Active Mother Comments:HTN, CHF Status:Active Unknown Family Member Name Dates Details Father Comments:Bladder, cancer Status:Active Mother Comments:HTN, CHF Status:Active Unknown Family Member Name Dates Details Father Comments:Bladder, cancer Status:Active Mother Comments:HTN, CHF Status:Active Unknown Family Member Name Dates Details Father Comments:Bladder, cancer Status:Active Mother Comments:HTN, CHF Status:Active Unknown Family Member Name Dates Details Father Comments:Bladder, cancer Status:Active Mother Comments:HTN, CHF Status:Active Unknown Family Member Name Dates Details Father Comments:Bladder, cancer Status:Active Mother Comments:HTN, CHF Status:Active Unknown Family Member Name Dates Details Father Comments:Bladder, cancer Status:Active Mother Comments:HTN, CHF Status:Active Unknown Family Member Name Dates Details Father Comments:Bladder, cancer Status:Active Mother Comments:HTN, CHF Status:Active Unknown Family Member Name Dates Details Father Comments:Bladder, cancer Status:Active Mother Comments:HTN, CHF Status:Active Relationship Condition Age at Onset Recorded Date/T melissa father Malignant neoplasm Unknown mother Hypertension Unknown Cardiac disease Unknown Chronic obstructive pulmonary disease Unk nown brother Malignant neoplasm Unknown Unknown Family Member Name Dates Details Father Comments:Bladder, cancer Status:Active Mother Comments:HTN, CHF Status:Active Unknown Family Member Name Dates Details Father Comments:Bladder, cancer Status:Active Mother Comments:HTN, CHF Status:Active Unknown Family Member Name Dates Details Father Comments:Bladder, cancer Status:Active Mother Comments:HTN, CHF Status:Active Unknown Family Member Name Dates Details Father Comments:Bladder, cancer Status:Active Mother Comments:HTN, CHF Status:Active Unknown Family Member Name Dates Details Father Comments:Bladder, cancer Status:Active Mother Comments:HTN, CHF Status:Active Unknown Family Member Name Dates Details Father Comments:Bladder, cancer Status:Active Mother Comments:HTN, CHF Status:Active Unknown Family Member Name Dates Details Father Comments:Bladder, cancer Status:Active Mother Comments:HTN, CHF Status:Active Unknown Family Member Name Dates Details Father Comments:Bladder, cancer Status:Active Mother Comments:HTN, CHF Status:Active Unknown Family Member Name Dates Details Father Comments:Bladder, cancer Status:Active Mother Comments:HTN, CHF Status:Active Unknown Family Member Name Dates Details Father Comments:Bladder, cancer Status:Active Mother Comments:HTN, CHF Status:Active Unknown Family Member Name Dates Details Father Comments:Bladder, cancer Status:Active Mother Comments:HTN, CHF Status:Active Unknown Family Member Name Dates Details Father Comments:Bladder, cancer Status:Active Mother Comments:HTN, CHF Status:Active Unknown Family Member Name Dates Details Father Comments:Bladder, cancer Status:Active Mother Comments:HTN, CHF Status:Active Unknown Family Member Name Dates Details Father Comments:Bladder, cancer Status:Active Mother Comments:HTN, CHF Status:Active Unknown Family Member Name Dates Details Father Comments:Bladder, cancer Status:Active Mother Comments:HTN, CHF Status:Active Unknown Family Member Name Dates Details Father Comments:Bladder, cancer Status:Active Mother Comments:HTN, CHF Status:Active Unknown Family Member Name Dates Details Father Comments:Bladder, cancer Status:Active Mother Comments:HTN, CHF Status:Active Unknown Family Member Name Dates Details Father Comments:Bladder, cancer Status:Active Mother Comments:HTN, CHF Status:Active Unknown Family Member Name Dates Details Father Comments:Bladder, cancer Status:Active Mother Comments:HTN, CHF Status:Active Unknown Family Member Name Dates Details Father Comments:Bladder, cancer Status:Active Mother Comments:HTN, CHF Status:Active Relationship Condition Age at Onset Recorded Date/T melissa father Malignant neoplasm Unknown mother Hypertension Unknown Cardiac disease Unknown Chronic obstructive pulmonary disease Unk nown Anemia Unknown Arthritis Unknown Age related osteoporosis Unknown brother Malignant neoplasm Unknown brother Pulmonary embolism Unknown Malignant neoplasm of skin Unknown Instructions Name Dates Details Nonsmoker : How to access he alth information online Indication:Nonsmoker Nonsmoker : How to access he alth information online - Detail Indication:Nonsmoker Nonsmoker : Patient Instruct ions Indication:Nonsmoker Hypertension : How to access health information online - Detail Indication:Hypertension Hypertension : How to access health information online Indication:Hypertension BMI 20.0-20.9, adult : Patie nt Instructions Indication:BMI 20.0-20.9, adult Hypothyroidism : How to acce ss health information online Indication:Hypothyroidism Hypothyroidism : How to acce ss health information online - Detail Indication:Hypothyroidism Hypothyroidism : Patient Ins tructions Indication:Hypothyroidism Hyperlipidemia : DISCONTINUE D - LIPID PANEL ([id number]) Indication:Hyperlipidemia Osteoporosis : How to access health information online Indication:Osteoporosis Osteoporosis : How to access health information online - Detail Indication:Osteoporosis Osteoporosis : Patient Instr uctions Indication:Osteoporosis Leukopenia : Patient Instruc tions Indication:Leukopenia Hyperlipidemia : How to acce ss health information online Indication:Hyperlipidemia Hyperlipidemia : How to acce ss health information online - Detail Indication:Hyperlipidemia Name Dates Details Nonsmoker : How to access he alth information online Indication:Nonsmoker Nonsmoker : How to access he alth information online - Detail Indication:Nonsmoker Nonsmoker : Patient Instruct ions Indication:Nonsmoker Hypertension : How to access health information online - Detail Indication:Hypertension Hypertension : How to access health information online Indication:Hypertension BMI 20.0-20.9, adult : Patie nt Instructions Indication:BMI 20.0-20.9, adult Hypothyroidism : How to acce ss health information online Indication:Hypothyroidism Hypothyroidism : How to acce ss health information online - Detail Indication:Hypothyroidism Hypothyroidism : Patient Ins tructions Indication:Hypothyroidism Hyperlipidemia : DISCONTINUE D - LIPID PANEL ([id number]) Indication:Hyperlipidemia Osteoporosis : How to access health information online Indication:Osteoporosis Osteoporosis : How to access health information online - Detail Indication:Osteoporosis Osteoporosis : Patient Instr uctions Indication:Osteoporosis Leukopenia : Patient Instruc tions Indication:Leukopenia Hyperlipidemia : How to acce ss health information online Indication:Hyperlipidemia Hyperlipidemia : How to acce ss health information online - Detail Indication:Hyperlipidemia Name Dates Details Nonsmoker : How to access he alth information online Indication:Nonsmoker Nonsmoker : How to access he alth information online - Detail Indication:Nonsmoker Nonsmoker : Patient Instruct ions Indication:Nonsmoker Hypertension : How to access health information online - Detail Indication:Hypertension Hypertension : How to access health information online Indication:Hypertension BMI 20.0-20.9, adult : Patie nt Instructions Indication:BMI 20.0-20.9, adult Hypothyroidism : How to acce ss health information online Indication:Hypothyroidism Hypothyroidism : How to acce ss health information online - Detail Indication:Hypothyroidism Hypothyroidism : Patient Ins tructions Indication:Hypothyroidism Hyperlipidemia : DISCONTINUE D - LIPID PANEL ([id number]) Indication:Hyperlipidemia Osteoporosis : How to access health information online Indication:Osteoporosis Osteoporosis : How to access health information online - Detail Indication:Osteoporosis Osteoporosis : Patient Instr uctions Indication:Osteoporosis Leukopenia : Patient Instruc tions Indication:Leukopenia Hyperlipidemia : How to acce ss health information online Indication:Hyperlipidemia Hyperlipidemia : How to acce ss health information online - Detail Indication:Hyperlipidemia Name Dates Details Nonsmoker : How to access he alth information online Indication:Nonsmoker Nonsmoker : How to access he alth information online - Detail Indication:Nonsmoker Nonsmoker : Patient Instruct ions Indication:Nonsmoker Hypertension : How to access health information online - Detail Indication:Hypertension Hypertension : How to access health information online Indication:Hypertension BMI 20.0-20.9, adult : Patie nt Instructions Indication:BMI 20.0-20.9, adult Hypothyroidism : How to acce ss health information online Indication:Hypothyroidism Hypothyroidism : How to acce ss health information online - Detail Indication:Hypothyroidism Hypothyroidism : Patient Ins tructions Indication:Hypothyroidism Hyperlipidemia : DISCONTINUE D - LIPID PANEL ([id number]) Indication:Hyperlipidemia Osteoporosis : How to access health information online Indication:Osteoporosis Osteoporosis : How to access health information online - Detail Indication:Osteoporosis Osteoporosis : Patient Instr uctions Indication:Osteoporosis Leukopenia : Patient Instruc tions Indication:Leukopenia Hyperlipidemia : How to acce ss health information online Indication:Hyperlipidemia Hyperlipidemia : How to acce ss health information online - Detail Indication:Hyperlipidemia Name Dates Details How to access health informa tion online Indication:Pre-operative general physical examination Start:27-Feb-2019 Instruction Type:Patient Education How to access health informa tion online - Detail Indication:Pre-operative general physical examination Start:27-Feb-2019 Instruction Type:Patient Education Patient Instructions Indication:Pre-operative general physical examination Start:27-Feb-2019 Instruction Type:Provider Instructions for Treatment How to access health informa tion online Indication:Nonsmoker Start:24-Oct-2018 Instruction Type:Patient Education How to access health informa tion online - Detail Indication:Nonsmoker Start:24-Oct-2018 Instruction Type:Patient Education Patient Instructions Indication:Nonsmoker Start:24-Oct-2018 Instruction Type:Provider Instructions for Treatment How to access health informa tion online Indication:Nonsmoker Start:15-Oct-2018 Instruction Type:Patient Education How to access health informa tion online - Detail Indication:Nonsmoker Start:15-Oct-2018 Instruction Type:Patient Education Patient Instructions Indication:Nonsmoker Start:15-Oct-2018 Instruction Type:Provider Instructions for Treatment How to access health informa tion online Indication:Nonsmoker Start:03-Oct-2018 Instruction Type:Patient Education How to access health informa tion online - Detail Indication:Nonsmoker Start:03-Oct-2018 Instruction Type:Patient Education Patient Instructions Indication:Nonsmoker Start:03-Oct-2018 Instruction Type:Provider Instructions for Treatment How to access health informa tion online Indication:Nonsmoker Start:24-Jul-2018 Instruction Type:Patient Education How to access health informa tion online - Detail Indication:Nonsmoker Start:24-Jul-2018 Instruction Type:Patient Education Patient Instructions Indication:Nonsmoker Start:24-Jul-2018 Instruction Type:Provider Instructions for Treatment How to access health informa tion online - Detail Indication:Hypertension Start:20-Apr-2018 Instruction Type:Patient Education How to access health informa tion online Indication:Hypertension Start:20-Apr-2018 Instruction Type:Patient Education Patient Instructions Indication:BMI 20.0-20.9, adult Start:20-Apr-2018 Instruction Type:Provider Instructions for Treatment How to access health informa tion online Indication:Hypothyroidism Start:03-Apr-2018 Instruction Type:Patient Education How to access health informa tion online - Detail Indication:Hypothyroidism Start:03-Apr-2018 Instruction Type:Patient Education Patient Instructions Indication:Hypothyroidism Start:03-Apr-2018 Instruction Type:Provider Instructions for Treatment Patient Instructions Indication:Hypothyroidism Start:30-Aug-2017 Instruction Type:Provider Instructions for Treatment How to access health informa tion online Indication:Nonsmoker Start:30-Aug-2017 Instruction Type:Patient Education How to access health informa tion online - Detail Indication:Nonsmoker Start:30-Aug-2017 Instruction Type:Patient Education Patient Instructions Indication:Nonsmoker Start:30-Aug-2017 Instruction Type:Provider Instructions for Treatment DISCONTINUED - LIPID PANEL ( [id number]) Indication:Hyperlipidemia Start:27-Mar-2017 Instruction Type:Patient Education How to access health informa tion online Indication:Osteoporosis Start:27-Mar-2017 Instruction Type:Patient Education How to access health informa tion online - Detail Indication:Osteoporosis Start:27-Mar-2017 Instruction Type:Patient Education Patient Instructions Indication:Osteoporosis Start:27-Mar-2017 Instruction Type:Provider Instructions for Treatment Patient Instructions Indication:Leukopenia Start:24-Feb-2017 Instruction Type:Provider Instructions for Treatment How to access health informa tion online Indication:Hyperlipidemia Start:24-Feb-2017 Instruction Type:Patient Education How to access health informa tion online - Detail Indication:Hyperlipidemia Start:24-Feb-2017 Instruction Type:Patient Education Name Dates Details How to access health informa tion online Indication:Pre-operative general physical examination Start:27-Feb-2019 Instruction Type:Patient Education How to access health informa tion online - Detail Indication:Pre-operative general physical examination Start:27-Feb-2019 Instruction Type:Patient Education Patient Instructions Indication:Pre-operative general physical examination Start:27-Feb-2019 Instruction Type:Provider Instructions for Treatment How to access health informa tion online Indication:Nonsmoker Start:24-Oct-2018 Instruction Type:Patient Education How to access health informa tion online - Detail Indication:Nonsmoker Start:24-Oct-2018 Instruction Type:Patient Education Patient Instructions Indication:Nonsmoker Start:24-Oct-2018 Instruction Type:Provider Instructions for Treatment How to access health informa tion online Indication:Nonsmoker Start:15-Oct-2018 Instruction Type:Patient Education How to access health informa tion online - Detail Indication:Nonsmoker Start:15-Oct-2018 Instruction Type:Patient Education Patient Instructions Indication:Nonsmoker Start:15-Oct-2018 Instruction Type:Provider Instructions for Treatment How to access health informa tion online Indication:Nonsmoker Start:03-Oct-2018 Instruction Type:Patient Education How to access health informa tion online - Detail Indication:Nonsmoker Start:03-Oct-2018 Instruction Type:Patient Education Patient Instructions Indication:Nonsmoker Start:03-Oct-2018 Instruction Type:Provider Instructions for Treatment How to access health informa tion online Indication:Nonsmoker Start:24-Jul-2018 Instruction Type:Patient Education How to access health informa tion online - Detail Indication:Nonsmoker Start:24-Jul-2018 Instruction Type:Patient Education Patient Instructions Indication:Nonsmoker Start:24-Jul-2018 Instruction Type:Provider Instructions for Treatment How to access health informa tion online - Detail Indication:Hypertension Start:20-Apr-2018 Instruction Type:Patient Education How to access health informa tion online Indication:Hypertension Start:20-Apr-2018 Instruction Type:Patient Education Patient Instructions Indication:BMI 20.0-20.9, adult Start:20-Apr-2018 Instruction Type:Provider Instructions for Treatment How to access health informa tion online Indication:Hypothyroidism Start:03-Apr-2018 Instruction Type:Patient Education How to access health informa tion online - Detail Indication:Hypothyroidism Start:03-Apr-2018 Instruction Type:Patient Education Patient Instructions Indication:Hypothyroidism Start:03-Apr-2018 Instruction Type:Provider Instructions for Treatment Patient Instructions Indication:Hypothyroidism Start:30-Aug-2017 Instruction Type:Provider Instructions for Treatment How to access health informa tion online Indication:Nonsmoker Start:30-Aug-2017 Instruction Type:Patient Education How to access health informa tion online - Detail Indication:Nonsmoker Start:30-Aug-2017 Instruction Type:Patient Education Patient Instructions Indication:Nonsmoker Start:30-Aug-2017 Instruction Type:Provider Instructions for Treatment DISCONTINUED - LIPID PANEL ( [id number]) Indication:Hyperlipidemia Start:27-Mar-2017 Instruction Type:Patient Education How to access health informa tion online Indication:Osteoporosis Start:27-Mar-2017 Instruction Type:Patient Education How to access health informa tion online - Detail Indication:Osteoporosis Start:27-Mar-2017 Instruction Type:Patient Education Patient Instructions Indication:Osteoporosis Start:27-Mar-2017 Instruction Type:Provider Instructions for Treatment Patient Instructions Indication:Leukopenia Start:24-Feb-2017 Instruction Type:Provider Instructions for Treatment How to access health informa tion online Indication:Hyperlipidemia Start:24-Feb-2017 Instruction Type:Patient Education How to access health informa tion online - Detail Indication:Hyperlipidemia Start:24-Feb-2017 Instruction Type:Patient Education Name Dates Details How to access health informa tion online Indication:Pre-operative general physical examination Start:27-Feb-2019 Instruction Type:Patient Education How to access health informa tion online - Detail Indication:Pre-operative general physical examination Start:27-Feb-2019 Instruction Type:Patient Education Patient Instructions Indication:Pre-operative general physical examination Start:27-Feb-2019 Instruction Type:Provider Instructions for Treatment How to access health informa tion online Indication:Nonsmoker Start:24-Oct-2018 Instruction Type:Patient Education How to access health informa tion online - Detail Indication:Nonsmoker Start:24-Oct-2018 Instruction Type:Patient Education Patient Instructions Indication:Nonsmoker Start:24-Oct-2018 Instruction Type:Provider Instructions for Treatment How to access health informa tion online Indication:Nonsmoker Start:15-Oct-2018 Instruction Type:Patient Education How to access health informa tion online - Detail Indication:Nonsmoker Start:15-Oct-2018 Instruction Type:Patient Education Patient Instructions Indication:Nonsmoker Start:15-Oct-2018 Instruction Type:Provider Instructions for Treatment How to access health informa tion online Indication:Nonsmoker Start:03-Oct-2018 Instruction Type:Patient Education How to access health informa tion online - Detail Indication:Nonsmoker Start:03-Oct-2018 Instruction Type:Patient Education Patient Instructions Indication:Nonsmoker Start:03-Oct-2018 Instruction Type:Provider Instructions for Treatment How to access health informa tion online Indication:Nonsmoker Start:24-Jul-2018 Instruction Type:Patient Education How to access health informa tion online - Detail Indication:Nonsmoker Start:24-Jul-2018 Instruction Type:Patient Education Patient Instructions Indication:Nonsmoker Start:24-Jul-2018 Instruction Type:Provider Instructions for Treatment How to access health informa tion online - Detail Indication:Hypertension Start:20-Apr-2018 Instruction Type:Patient Education How to access health informa tion online Indication:Hypertension Start:20-Apr-2018 Instruction Type:Patient Education Patient Instructions Indication:BMI 20.0-20.9, adult Start:20-Apr-2018 Instruction Type:Provider Instructions for Treatment How to access health informa tion online Indication:Hypothyroidism Start:03-Apr-2018 Instruction Type:Patient Education How to access health informa tion online - Detail Indication:Hypothyroidism Start:03-Apr-2018 Instruction Type:Patient Education Patient Instructions Indication:Hypothyroidism Start:03-Apr-2018 Instruction Type:Provider Instructions for Treatment Patient Instructions Indication:Hypothyroidism Start:30-Aug-2017 Instruction Type:Provider Instructions for Treatment How to access health informa tion online Indication:Nonsmoker Start:30-Aug-2017 Instruction Type:Patient Education How to access health informa tion online - Detail Indication:Nonsmoker Start:30-Aug-2017 Instruction Type:Patient Education Patient Instructions Indication:Nonsmoker Start:30-Aug-2017 Instruction Type:Provider Instructions for Treatment DISCONTINUED - LIPID PANEL ( [id number]) Indication:Hyperlipidemia Start:27-Mar-2017 Instruction Type:Patient Education How to access health informa tion online Indication:Osteoporosis Start:27-Mar-2017 Instruction Type:Patient Education How to access health informa tion online - Detail Indication:Osteoporosis Start:27-Mar-2017 Instruction Type:Patient Education Patient Instructions Indication:Osteoporosis Start:27-Mar-2017 Instruction Type:Provider Instructions for Treatment Patient Instructions Indication:Leukopenia Start:24-Feb-2017 Instruction Type:Provider Instructions for Treatment How to access health informa tion online Indication:Hyperlipidemia Start:24-Feb-2017 Instruction Type:Patient Education How to access health informa tion online - Detail Indication:Hyperlipidemia Start:24-Feb-2017 Instruction Type:Patient Education Name Dates Details How to access health informa tion online Indication:Pre-operative general physical examination Start:27-Feb-2019 Instruction Type:Patient Education How to access health informa tion online - Detail Indication:Pre-operative general physical examination Start:27-Feb-2019 Instruction Type:Patient Education Patient Instructions Indication:Pre-operative general physical examination Start:27-Feb-2019 Instruction Type:Provider Instructions for Treatment How to access health informa tion online Indication:Nonsmoker Start:24-Oct-2018 Instruction Type:Patient Education How to access health informa tion online - Detail Indication:Nonsmoker Start:24-Oct-2018 Instruction Type:Patient Education Patient Instructions Indication:Nonsmoker Start:24-Oct-2018 Instruction Type:Provider Instructions for Treatment How to access health informa tion online Indication:Nonsmoker Start:15-Oct-2018 Instruction Type:Patient Education How to access health informa tion online - Detail Indication:Nonsmoker Start:15-Oct-2018 Instruction Type:Patient Education Patient Instructions Indication:Nonsmoker Start:15-Oct-2018 Instruction Type:Provider Instructions for Treatment How to access health informa tion online Indication:Nonsmoker Start:03-Oct-2018 Instruction Type:Patient Education How to access health informa tion online - Detail Indication:Nonsmoker Start:03-Oct-2018 Instruction Type:Patient Education Patient Instructions Indication:Nonsmoker Start:03-Oct-2018 Instruction Type:Provider Instructions for Treatment How to access health informa tion online Indication:Nonsmoker Start:24-Jul-2018 Instruction Type:Patient Education How to access health informa tion online - Detail Indication:Nonsmoker Start:24-Jul-2018 Instruction Type:Patient Education Patient Instructions Indication:Nonsmoker Start:24-Jul-2018 Instruction Type:Provider Instructions for Treatment How to access health informa tion online - Detail Indication:Hypertension Start:20-Apr-2018 Instruction Type:Patient Education How to access health informa tion online Indication:Hypertension Start:20-Apr-2018 Instruction Type:Patient Education Patient Instructions Indication:BMI 20.0-20.9, adult Start:20-Apr-2018 Instruction Type:Provider Instructions for Treatment How to access health informa tion online Indication:Hypothyroidism Start:03-Apr-2018 Instruction Type:Patient Education How to access health informa tion online - Detail Indication:Hypothyroidism Start:03-Apr-2018 Instruction Type:Patient Education Patient Instructions Indication:Hypothyroidism Start:03-Apr-2018 Instruction Type:Provider Instructions for Treatment Patient Instructions Indication:Hypothyroidism Start:30-Aug-2017 Instruction Type:Provider Instructions for Treatment How to access health informa tion online Indication:Nonsmoker Start:30-Aug-2017 Instruction Type:Patient Education How to access health informa tion online - Detail Indication:Nonsmoker Start:30-Aug-2017 Instruction Type:Patient Education Patient Instructions Indication:Nonsmoker Start:30-Aug-2017 Instruction Type:Provider Instructions for Treatment DISCONTINUED - LIPID PANEL ( [id number]) Indication:Hyperlipidemia Start:27-Mar-2017 Instruction Type:Patient Education How to access health informa tion online Indication:Osteoporosis Start:27-Mar-2017 Instruction Type:Patient Education How to access health informa tion online - Detail Indication:Osteoporosis Start:27-Mar-2017 Instruction Type:Patient Education Patient Instructions Indication:Osteoporosis Start:27-Mar-2017 Instruction Type:Provider Instructions for Treatment Patient Instructions Indication:Leukopenia Start:24-Feb-2017 Instruction Type:Provider Instructions for Treatment How to access health informa tion online Indication:Hyperlipidemia Start:24-Feb-2017 Instruction Type:Patient Education How to access health informa tion online - Detail Indication:Hyperlipidemia Start:24-Feb-2017 Instruction Type:Patient Education Name Dates Details How to access health informa tion online Indication:BMI 20.0-20.9, adult Start:09-Apr-2019 Instruction Type:Patient Education How to access health informa tion online - Detail Indication:BMI 20.0-20.9, adult Start:09-Apr-2019 Instruction Type:Patient Education Patient Instructions Indication:Nonsmoker Start:09-Apr-2019 Instruction Type:Provider Instructions for Treatment How to access health informa tion online Indication:Pre-operative general physical examination Start:27-Feb-2019 Instruction Type:Patient Education How to access health informa tion online - Detail Indication:Pre-operative general physical examination Start:27-Feb-2019 Instruction Type:Patient Education Patient Instructions Indication:Pre-operative general physical examination Start:27-Feb-2019 Instruction Type:Provider Instructions for Treatment How to access health informa tion online Indication:Nonsmoker Start:24-Oct-2018 Instruction Type:Patient Education How to access health informa tion online - Detail Indication:Nonsmoker Start:24-Oct-2018 Instruction Type:Patient Education Patient Instructions Indication:Nonsmoker Start:24-Oct-2018 Instruction Type:Provider Instructions for Treatment How to access health informa tion online Indication:Nonsmoker Start:15-Oct-2018 Instruction Type:Patient Education How to access health informa tion online - Detail Indication:Nonsmoker Start:15-Oct-2018 Instruction Type:Patient Education Patient Instructions Indication:Nonsmoker Start:15-Oct-2018 Instruction Type:Provider Instructions for Treatment How to access health informa tion online Indication:Nonsmoker Start:03-Oct-2018 Instruction Type:Patient Education How to access health informa tion online - Detail Indication:Nonsmoker Start:03-Oct-2018 Instruction Type:Patient Education Patient Instructions Indication:Nonsmoker Start:03-Oct-2018 Instruction Type:Provider Instructions for Treatment How to access health informa tion online Indication:Nonsmoker Start:24-Jul-2018 Instruction Type:Patient Education How to access health informa tion online - Detail Indication:Nonsmoker Start:24-Jul-2018 Instruction Type:Patient Education Patient Instructions Indication:Nonsmoker Start:24-Jul-2018 Instruction Type:Provider Instructions for Treatment How to access health informa tion online - Detail Indication:Hypertension Start:20-Apr-2018 Instruction Type:Patient Education How to access health informa tion online Indication:Hypertension Start:20-Apr-2018 Instruction Type:Patient Education Patient Instructions Indication:BMI 20.0-20.9, adult Start:20-Apr-2018 Instruction Type:Provider Instructions for Treatment How to access health informa tion online Indication:Hypothyroidism Start:03-Apr-2018 Instruction Type:Patient Education How to access health informa tion online - Detail Indication:Hypothyroidism Start:03-Apr-2018 Instruction Type:Patient Education Patient Instructions Indication:Hypothyroidism Start:03-Apr-2018 Instruction Type:Provider Instructions for Treatment Patient Instructions Indication:Hypothyroidism Start:30-Aug-2017 Instruction Type:Provider Instructions for Treatment How to access health informa tion online Indication:Nonsmoker Start:30-Aug-2017 Instruction Type:Patient Education How to access health informa tion online - Detail Indication:Nonsmoker Start:30-Aug-2017 Instruction Type:Patient Education Patient Instructions Indication:Nonsmoker Start:30-Aug-2017 Instruction Type:Provider Instructions for Treatment DISCONTINUED - LIPID PANEL ( [id number]) Indication:Hyperlipidemia Start:27-Mar-2017 Instruction Type:Patient Education How to access health informa tion online Indication:Osteoporosis Start:27-Mar-2017 Instruction Type:Patient Education How to access health informa tion online - Detail Indication:Osteoporosis Start:27-Mar-2017 Instruction Type:Patient Education Patient Instructions Indication:Osteoporosis Start:27-Mar-2017 Instruction Type:Provider Instructions for Treatment Patient Instructions Indication:Leukopenia Start:24-Feb-2017 Instruction Type:Provider Instructions for Treatment How to access health informa tion online Indication:Hyperlipidemia Start:24-Feb-2017 Instruction Type:Patient Education How to access health informa tion online - Detail Indication:Hyperlipidemia Start:24-Feb-2017 Instruction Type:Patient Education Name Dates Details How to access health informa tion online Indication:BMI 20.0-20.9, adult Start:09-Apr-2019 Instruction Type:Patient Education How to access health informa tion online - Detail Indication:BMI 20.0-20.9, adult Start:09-Apr-2019 Instruction Type:Patient Education Patient Instructions Indication:Nonsmoker Start:09-Apr-2019 Instruction Type:Provider Instructions for Treatment How to access health informa tion online Indication:Pre-operative general physical examination Start:27-Feb-2019 Instruction Type:Patient Education How to access health informa tion online - Detail Indication:Pre-operative general physical examination Start:27-Feb-2019 Instruction Type:Patient Education Patient Instructions Indication:Pre-operative general physical examination Start:27-Feb-2019 Instruction Type:Provider Instructions for Treatment How to access health informa tion online Indication:Nonsmoker Start:24-Oct-2018 Instruction Type:Patient Education How to access health informa tion online - Detail Indication:Nonsmoker Start:24-Oct-2018 Instruction Type:Patient Education Patient Instructions Indication:Nonsmoker Start:24-Oct-2018 Instruction Type:Provider Instructions for Treatment How to access health informa tion online Indication:Nonsmoker Start:15-Oct-2018 Instruction Type:Patient Education How to access health informa tion online - Detail Indication:Nonsmoker Start:15-Oct-2018 Instruction Type:Patient Education Patient Instructions Indication:Nonsmoker Start:15-Oct-2018 Instruction Type:Provider Instructions for Treatment How to access health informa tion online Indication:Nonsmoker Start:03-Oct-2018 Instruction Type:Patient Education How to access health informa tion online - Detail Indication:Nonsmoker Start:03-Oct-2018 Instruction Type:Patient Education Patient Instructions Indication:Nonsmoker Start:03-Oct-2018 Instruction Type:Provider Instructions for Treatment How to access health informa tion online Indication:Nonsmoker Start:24-Jul-2018 Instruction Type:Patient Education How to access health informa tion online - Detail Indication:Nonsmoker Start:24-Jul-2018 Instruction Type:Patient Education Patient Instructions Indication:Nonsmoker Start:24-Jul-2018 Instruction Type:Provider Instructions for Treatment How to access health informa tion online - Detail Indication:Hypertension Start:20-Apr-2018 Instruction Type:Patient Education How to access health informa tion online Indication:Hypertension Start:20-Apr-2018 Instruction Type:Patient Education Patient Instructions Indication:BMI 20.0-20.9, adult Start:20-Apr-2018 Instruction Type:Provider Instructions for Treatment How to access health informa tion online Indication:Hypothyroidism Start:03-Apr-2018 Instruction Type:Patient Education How to access health informa tion online - Detail Indication:Hypothyroidism Start:03-Apr-2018 Instruction Type:Patient Education Patient Instructions Indication:Hypothyroidism Start:03-Apr-2018 Instruction Type:Provider Instructions for Treatment Patient Instructions Indication:Hypothyroidism Start:30-Aug-2017 Instruction Type:Provider Instructions for Treatment How to access health informa tion online Indication:Nonsmoker Start:30-Aug-2017 Instruction Type:Patient Education How to access health informa tion online - Detail Indication:Nonsmoker Start:30-Aug-2017 Instruction Type:Patient Education Patient Instructions Indication:Nonsmoker Start:30-Aug-2017 Instruction Type:Provider Instructions for Treatment DISCONTINUED - LIPID PANEL ( [id number]) Indication:Hyperlipidemia Start:27-Mar-2017 Instruction Type:Patient Education How to access health informa tion online Indication:Osteoporosis Start:27-Mar-2017 Instruction Type:Patient Education How to access health informa tion online - Detail Indication:Osteoporosis Start:27-Mar-2017 Instruction Type:Patient Education Patient Instructions Indication:Osteoporosis Start:27-Mar-2017 Instruction Type:Provider Instructions for Treatment Patient Instructions Indication:Leukopenia Start:24-Feb-2017 Instruction Type:Provider Instructions for Treatment How to access health informa tion online Indication:Hyperlipidemia Start:24-Feb-2017 Instruction Type:Patient Education How to access health informa tion online - Detail Indication:Hyperlipidemia Start:24-Feb-2017 Instruction Type:Patient Education Name Dates Details How to access health informa tion online Indication:BMI 20.0-20.9, adult Start:09-Apr-2019 Instruction Type:Patient Education How to access health informa tion online - Detail Indication:BMI 20.0-20.9, adult Start:09-Apr-2019 Instruction Type:Patient Education Patient Instructions Indication:Nonsmoker Start:09-Apr-2019 Instruction Type:Provider Instructions for Treatment How to access health informa tion online Indication:Pre-operative general physical examination Start:27-Feb-2019 Instruction Type:Patient Education How to access health informa tion online - Detail Indication:Pre-operative general physical examination Start:27-Feb-2019 Instruction Type:Patient Education Patient Instructions Indication:Pre-operative general physical examination Start:27-Feb-2019 Instruction Type:Provider Instructions for Treatment How to access health informa tion online Indication:Nonsmoker Start:24-Oct-2018 Instruction Type:Patient Education How to access health informa tion online - Detail Indication:Nonsmoker Start:24-Oct-2018 Instruction Type:Patient Education Patient Instructions Indication:Nonsmoker Start:24-Oct-2018 Instruction Type:Provider Instructions for Treatment How to access health informa tion online Indication:Nonsmoker Start:15-Oct-2018 Instruction Type:Patient Education How to access health informa tion online - Detail Indication:Nonsmoker Start:15-Oct-2018 Instruction Type:Patient Education Patient Instructions Indication:Nonsmoker Start:15-Oct-2018 Instruction Type:Provider Instructions for Treatment How to access health informa tion online Indication:Nonsmoker Start:03-Oct-2018 Instruction Type:Patient Education How to access health informa tion online - Detail Indication:Nonsmoker Start:03-Oct-2018 Instruction Type:Patient Education Patient Instructions Indication:Nonsmoker Start:03-Oct-2018 Instruction Type:Provider Instructions for Treatment How to access health informa tion online Indication:Nonsmoker Start:24-Jul-2018 Instruction Type:Patient Education How to access health informa tion online - Detail Indication:Nonsmoker Start:24-Jul-2018 Instruction Type:Patient Education Patient Instructions Indication:Nonsmoker Start:24-Jul-2018 Instruction Type:Provider Instructions for Treatment How to access health informa tion online - Detail Indication:Hypertension Start:20-Apr-2018 Instruction Type:Patient Education How to access health informa tion online Indication:Hypertension Start:20-Apr-2018 Instruction Type:Patient Education Patient Instructions Indication:BMI 20.0-20.9, adult Start:20-Apr-2018 Instruction Type:Provider Instructions for Treatment How to access health informa tion online Indication:Hypothyroidism Start:03-Apr-2018 Instruction Type:Patient Education How to access health informa tion online - Detail Indication:Hypothyroidism Start:03-Apr-2018 Instruction Type:Patient Education Patient Instructions Indication:Hypothyroidism Start:03-Apr-2018 Instruction Type:Provider Instructions for Treatment Patient Instructions Indication:Hypothyroidism Start:30-Aug-2017 Instruction Type:Provider Instructions for Treatment How to access health informa tion online Indication:Nonsmoker Start:30-Aug-2017 Instruction Type:Patient Education How to access health informa tion online - Detail Indication:Nonsmoker Start:30-Aug-2017 Instruction Type:Patient Education Patient Instructions Indication:Nonsmoker Start:30-Aug-2017 Instruction Type:Provider Instructions for Treatment DISCONTINUED - LIPID PANEL ( [id number]) Indication:Hyperlipidemia Start:27-Mar-2017 Instruction Type:Patient Education How to access health informa tion online Indication:Osteoporosis Start:27-Mar-2017 Instruction Type:Patient Education How to access health informa tion online - Detail Indication:Osteoporosis Start:27-Mar-2017 Instruction Type:Patient Education Patient Instructions Indication:Osteoporosis Start:27-Mar-2017 Instruction Type:Provider Instructions for Treatment Patient Instructions Indication:Leukopenia Start:24-Feb-2017 Instruction Type:Provider Instructions for Treatment How to access health informa tion online Indication:Hyperlipidemia Start:24-Feb-2017 Instruction Type:Patient Education How to access health informa tion online - Detail Indication:Hyperlipidemia Start:24-Feb-2017 Instruction Type:Patient Education Name Dates Details How to access health informa tion online Indication:Nonsmoker Start:07-Apr-2020 Instruction Type:Patient Education How to access health informa tion online - Detail Indication:Nonsmoker Start:07-Apr-2020 Instruction Type:Patient Education Patient Instructions Indication:BMI 20.0-20.9, adult Start:07-Apr-2020 Instruction Type:Provider Instructions for Treatment How to access health informa tion online Indication:Nonsmoker Start:10-Jul-2019 Instruction Type:Patient Education How to access health informa tion online - Detail Indication:Nonsmoker Start:10-Jul-2019 Instruction Type:Patient Education Patient Instructions Indication:Nonsmoker Start:10-Jul-2019 Instruction Type:Provider Instructions for Treatment How to access health informa tion online Indication:BMI 20.0-20.9, adult Start:09-Apr-2019 Instruction Type:Patient Education How to access health informa tion online - Detail Indication:BMI 20.0-20.9, adult Start:09-Apr-2019 Instruction Type:Patient Education Patient Instructions Indication:Nonsmoker Start:09-Apr-2019 Instruction Type:Provider Instructions for Treatment How to access health informa tion online Indication:Pre-operative general physical examination Start:27-Feb-2019 Instruction Type:Patient Education How to access health informa tion online - Detail Indication:Pre-operative general physical examination Start:27-Feb-2019 Instruction Type:Patient Education Patient Instructions Indication:Pre-operative general physical examination Start:27-Feb-2019 Instruction Type:Provider Instructions for Treatment How to access health informa tion online Indication:Nonsmoker Start:24-Oct-2018 Instruction Type:Patient Education How to access health informa tion online - Detail Indication:Nonsmoker Start:24-Oct-2018 Instruction Type:Patient Education Patient Instructions Indication:Nonsmoker Start:24-Oct-2018 Instruction Type:Provider Instructions for Treatment How to access health informa tion online Indication:Nonsmoker Start:15-Oct-2018 Instruction Type:Patient Education How to access health informa tion online - Detail Indication:Nonsmoker Start:15-Oct-2018 Instruction Type:Patient Education Patient Instructions Indication:Nonsmoker Start:15-Oct-2018 Instruction Type:Provider Instructions for Treatment How to access health informa tion online Indication:Nonsmoker Start:03-Oct-2018 Instruction Type:Patient Education How to access health informa tion online - Detail Indication:Nonsmoker Start:03-Oct-2018 Instruction Type:Patient Education Patient Instructions Indication:Nonsmoker Start:03-Oct-2018 Instruction Type:Provider Instructions for Treatment How to access health informa tion online Indication:Nonsmoker Start:24-Jul-2018 Instruction Type:Patient Education How to access health informa tion online - Detail Indication:Nonsmoker Start:24-Jul-2018 Instruction Type:Patient Education Patient Instructions Indication:Nonsmoker Start:24-Jul-2018 Instruction Type:Provider Instructions for Treatment How to access health informa tion online - Detail Indication:Hypertension Start:20-Apr-2018 Instruction Type:Patient Education How to access health informa tion online Indication:Hypertension Start:20-Apr-2018 Instruction Type:Patient Education Patient Instructions Indication:BMI 20.0-20.9, adult Start:20-Apr-2018 Instruction Type:Provider Instructions for Treatment How to access health informa tion online Indication:Hypothyroidism Start:03-Apr-2018 Instruction Type:Patient Education How to access health informa tion online - Detail Indication:Hypothyroidism Start:03-Apr-2018 Instruction Type:Patient Education Patient Instructions Indication:Hypothyroidism Start:03-Apr-2018 Instruction Type:Provider Instructions for Treatment Patient Instructions Indication:Hypothyroidism Start:30-Aug-2017 Instruction Type:Provider Instructions for Treatment How to access health informa tion online Indication:Nonsmoker Start:30-Aug-2017 Instruction Type:Patient Education How to access health informa tion online - Detail Indication:Nonsmoker Start:30-Aug-2017 Instruction Type:Patient Education Patient Instructions Indication:Nonsmoker Start:30-Aug-2017 Instruction Type:Provider Instructions for Treatment DISCONTINUED - LIPID PANEL ( [id number]) Indication:Hyperlipidemia Start:27-Mar-2017 Instruction Type:Patient Education How to access health informa tion online Indication:Osteoporosis Start:27-Mar-2017 Instruction Type:Patient Education How to access health informa tion online - Detail Indication:Osteoporosis Start:27-Mar-2017 Instruction Type:Patient Education Patient Instructions Indication:Osteoporosis Start:27-Mar-2017 Instruction Type:Provider Instructions for Treatment Patient Instructions Indication:Leukopenia Start:24-Feb-2017 Instruction Type:Provider Instructions for Treatment How to access health informa tion online Indication:Hyperlipidemia Start:24-Feb-2017 Instruction Type:Patient Education How to access health informa tion online - Detail Indication:Hyperlipidemia Start:24-Feb-2017 Instruction Type:Patient Education Name Dates Details How to access health informa tion online Indication:Nonsmoker Start:07-Apr-2020 Instruction Type:Patient Education How to access health informa tion online - Detail Indication:Nonsmoker Start:07-Apr-2020 Instruction Type:Patient Education Patient Instructions Indication:BMI 20.0-20.9, adult Start:07-Apr-2020 Instruction Type:Provider Instructions for Treatment How to access health informa tion online Indication:Nonsmoker Start:10-Jul-2019 Instruction Type:Patient Education How to access health informa tion online - Detail Indication:Nonsmoker Start:10-Jul-2019 Instruction Type:Patient Education Patient Instructions Indication:Nonsmoker Start:10-Jul-2019 Instruction Type:Provider Instructions for Treatment How to access health informa tion online Indication:BMI 20.0-20.9, adult Start:09-Apr-2019 Instruction Type:Patient Education How to access health informa tion online - Detail Indication:BMI 20.0-20.9, adult Start:09-Apr-2019 Instruction Type:Patient Education Patient Instructions Indication:Nonsmoker Start:09-Apr-2019 Instruction Type:Provider Instructions for Treatment How to access health informa tion online Indication:Pre-operative general physical examination Start:27-Feb-2019 Instruction Type:Patient Education How to access health informa tion online - Detail Indication:Pre-operative general physical examination Start:27-Feb-2019 Instruction Type:Patient Education Patient Instructions Indication:Pre-operative general physical examination Start:27-Feb-2019 Instruction Type:Provider Instructions for Treatment How to access health informa tion online Indication:Nonsmoker Start:24-Oct-2018 Instruction Type:Patient Education How to access health informa tion online - Detail Indication:Nonsmoker Start:24-Oct-2018 Instruction Type:Patient Education Patient Instructions Indication:Nonsmoker Start:24-Oct-2018 Instruction Type:Provider Instructions for Treatment How to access health informa tion online Indication:Nonsmoker Start:15-Oct-2018 Instruction Type:Patient Education How to access health informa tion online - Detail Indication:Nonsmoker Start:15-Oct-2018 Instruction Type:Patient Education Patient Instructions Indication:Nonsmoker Start:15-Oct-2018 Instruction Type:Provider Instructions for Treatment How to access health informa tion online Indication:Nonsmoker Start:03-Oct-2018 Instruction Type:Patient Education How to access health informa tion online - Detail Indication:Nonsmoker Start:03-Oct-2018 Instruction Type:Patient Education Patient Instructions Indication:Nonsmoker Start:03-Oct-2018 Instruction Type:Provider Instructions for Treatment How to access health informa tion online Indication:Nonsmoker Start:24-Jul-2018 Instruction Type:Patient Education How to access health informa tion online - Detail Indication:Nonsmoker Start:24-Jul-2018 Instruction Type:Patient Education Patient Instructions Indication:Nonsmoker Start:24-Jul-2018 Instruction Type:Provider Instructions for Treatment How to access health informa tion online - Detail Indication:Hypertension Start:20-Apr-2018 Instruction Type:Patient Education How to access health informa tion online Indication:Hypertension Start:20-Apr-2018 Instruction Type:Patient Education Patient Instructions Indication:BMI 20.0-20.9, adult Start:20-Apr-2018 Instruction Type:Provider Instructions for Treatment How to access health informa tion online Indication:Hypothyroidism Start:03-Apr-2018 Instruction Type:Patient Education How to access health informa tion online - Detail Indication:Hypothyroidism Start:03-Apr-2018 Instruction Type:Patient Education Patient Instructions Indication:Hypothyroidism Start:03-Apr-2018 Instruction Type:Provider Instructions for Treatment Patient Instructions Indication:Hypothyroidism Start:30-Aug-2017 Instruction Type:Provider Instructions for Treatment How to access health informa tion online Indication:Nonsmoker Start:30-Aug-2017 Instruction Type:Patient Education How to access health informa tion online - Detail Indication:Nonsmoker Start:30-Aug-2017 Instruction Type:Patient Education Patient Instructions Indication:Nonsmoker Start:30-Aug-2017 Instruction Type:Provider Instructions for Treatment DISCONTINUED - LIPID PANEL ( [id number]) Indication:Hyperlipidemia Start:27-Mar-2017 Instruction Type:Patient Education How to access health informa tion online Indication:Osteoporosis Start:27-Mar-2017 Instruction Type:Patient Education How to access health informa tion online - Detail Indication:Osteoporosis Start:27-Mar-2017 Instruction Type:Patient Education Patient Instructions Indication:Osteoporosis Start:27-Mar-2017 Instruction Type:Provider Instructions for Treatment Patient Instructions Indication:Leukopenia Start:24-Feb-2017 Instruction Type:Provider Instructions for Treatment How to access health informa tion online Indication:Hyperlipidemia Start:24-Feb-2017 Instruction Type:Patient Education How to access health informa tion online - Detail Indication:Hyperlipidemia Start:24-Feb-2017 Instruction Type:Patient Education Name Dates Details How to access health informa tion online Indication:Nonsmoker Start:07-Apr-2020 Instruction Type:Patient Education How to access health informa tion online - Detail Indication:Nonsmoker Start:07-Apr-2020 Instruction Type:Patient Education Patient Instructions Indication:BMI 20.0-20.9, adult Start:07-Apr-2020 Instruction Type:Provider Instructions for Treatment How to access health informa tion online Indication:Nonsmoker Start:10-Jul-2019 Instruction Type:Patient Education How to access health informa tion online - Detail Indication:Nonsmoker Start:10-Jul-2019 Instruction Type:Patient Education Patient Instructions Indication:Nonsmoker Start:10-Jul-2019 Instruction Type:Provider Instructions for Treatment How to access health informa tion online Indication:BMI 20.0-20.9, adult Start:09-Apr-2019 Instruction Type:Patient Education How to access health informa tion online - Detail Indication:BMI 20.0-20.9, adult Start:09-Apr-2019 Instruction Type:Patient Education Patient Instructions Indication:Nonsmoker Start:09-Apr-2019 Instruction Type:Provider Instructions for Treatment How to access health informa tion online Indication:Pre-operative general physical examination Start:27-Feb-2019 Instruction Type:Patient Education How to access health informa tion online - Detail Indication:Pre-operative general physical examination Start:27-Feb-2019 Instruction Type:Patient Education Patient Instructions Indication:Pre-operative general physical examination Start:27-Feb-2019 Instruction Type:Provider Instructions for Treatment How to access health informa tion online Indication:Nonsmoker Start:24-Oct-2018 Instruction Type:Patient Education How to access health informa tion online - Detail Indication:Nonsmoker Start:24-Oct-2018 Instruction Type:Patient Education Patient Instructions Indication:Nonsmoker Start:24-Oct-2018 Instruction Type:Provider Instructions for Treatment How to access health informa tion online Indication:Nonsmoker Start:15-Oct-2018 Instruction Type:Patient Education How to access health informa tion online - Detail Indication:Nonsmoker Start:15-Oct-2018 Instruction Type:Patient Education Patient Instructions Indication:Nonsmoker Start:15-Oct-2018 Instruction Type:Provider Instructions for Treatment How to access health informa tion online Indication:Nonsmoker Start:03-Oct-2018 Instruction Type:Patient Education How to access health informa tion online - Detail Indication:Nonsmoker Start:03-Oct-2018 Instruction Type:Patient Education Patient Instructions Indication:Nonsmoker Start:03-Oct-2018 Instruction Type:Provider Instructions for Treatment How to access health informa tion online Indication:Nonsmoker Start:24-Jul-2018 Instruction Type:Patient Education How to access health informa tion online - Detail Indication:Nonsmoker Start:24-Jul-2018 Instruction Type:Patient Education Patient Instructions Indication:Nonsmoker Start:24-Jul-2018 Instruction Type:Provider Instructions for Treatment How to access health informa tion online - Detail Indication:Hypertension Start:20-Apr-2018 Instruction Type:Patient Education How to access health informa tion online Indication:Hypertension Start:20-Apr-2018 Instruction Type:Patient Education Patient Instructions Indication:BMI 20.0-20.9, adult Start:20-Apr-2018 Instruction Type:Provider Instructions for Treatment How to access health informa tion online Indication:Hypothyroidism Start:03-Apr-2018 Instruction Type:Patient Education How to access health informa tion online - Detail Indication:Hypothyroidism Start:03-Apr-2018 Instruction Type:Patient Education Patient Instructions Indication:Hypothyroidism Start:03-Apr-2018 Instruction Type:Provider Instructions for Treatment Patient Instructions Indication:Hypothyroidism Start:30-Aug-2017 Instruction Type:Provider Instructions for Treatment How to access health informa tion online Indication:Nonsmoker Start:30-Aug-2017 Instruction Type:Patient Education How to access health informa tion online - Detail Indication:Nonsmoker Start:30-Aug-2017 Instruction Type:Patient Education Patient Instructions Indication:Nonsmoker Start:30-Aug-2017 Instruction Type:Provider Instructions for Treatment DISCONTINUED - LIPID PANEL ( [id number]) Indication:Hyperlipidemia Start:27-Mar-2017 Instruction Type:Patient Education How to access health informa tion online Indication:Osteoporosis Start:27-Mar-2017 Instruction Type:Patient Education How to access health informa tion online - Detail Indication:Osteoporosis Start:27-Mar-2017 Instruction Type:Patient Education Patient Instructions Indication:Osteoporosis Start:27-Mar-2017 Instruction Type:Provider Instructions for Treatment Patient Instructions Indication:Leukopenia Start:24-Feb-2017 Instruction Type:Provider Instructions for Treatment How to access health informa tion online Indication:Hyperlipidemia Start:24-Feb-2017 Instruction Type:Patient Education How to access health informa tion online - Detail Indication:Hyperlipidemia Start:24-Feb-2017 Instruction Type:Patient Education Name Dates Details How to access health informa tion online Indication:Nonsmoker Start:19-Aug-2020 Instruction Type:Patient Education How to access health informa tion online - Detail Indication:Nonsmoker Start:19-Aug-2020 Instruction Type:Patient Education Patient Instructions Indication:Vitamin D insufficiency Start:19-Aug-2020 Instruction Type:Provider Instructions for Treatment How to access health informa tion online Indication:Nonsmoker Start:07-Apr-2020 Instruction Type:Patient Education How to access health informa tion online - Detail Indication:Nonsmoker Start:07-Apr-2020 Instruction Type:Patient Education Patient Instructions Indication:BMI 20.0-20.9, adult Start:07-Apr-2020 Instruction Type:Provider Instructions for Treatment How to access health informa tion online Indication:Nonsmoker Start:10-Jul-2019 Instruction Type:Patient Education How to access health informa tion online - Detail Indication:Nonsmoker Start:10-Jul-2019 Instruction Type:Patient Education Patient Instructions Indication:Nonsmoker Start:10-Jul-2019 Instruction Type:Provider Instructions for Treatment How to access health informa tion online Indication:BMI 20.0-20.9, adult Start:09-Apr-2019 Instruction Type:Patient Education How to access health informa tion online - Detail Indication:BMI 20.0-20.9, adult Start:09-Apr-2019 Instruction Type:Patient Education Patient Instructions Indication:Nonsmoker Start:09-Apr-2019 Instruction Type:Provider Instructions for Treatment How to access health informa tion online Indication:Pre-operative general physical examination Start:27-Feb-2019 Instruction Type:Patient Education How to access health informa tion online - Detail Indication:Pre-operative general physical examination Start:27-Feb-2019 Instruction Type:Patient Education Patient Instructions Indication:Pre-operative general physical examination Start:27-Feb-2019 Instruction Type:Provider Instructions for Treatment How to access health informa tion online Indication:Nonsmoker Start:24-Oct-2018 Instruction Type:Patient Education How to access health informa tion online - Detail Indication:Nonsmoker Start:24-Oct-2018 Instruction Type:Patient Education Patient Instructions Indication:Nonsmoker Start:24-Oct-2018 Instruction Type:Provider Instructions for Treatment How to access health informa tion online Indication:Nonsmoker Start:15-Oct-2018 Instruction Type:Patient Education How to access health informa tion online - Detail Indication:Nonsmoker Start:15-Oct-2018 Instruction Type:Patient Education Patient Instructions Indication:Nonsmoker Start:15-Oct-2018 Instruction Type:Provider Instructions for Treatment How to access health informa tion online Indication:Nonsmoker Start:03-Oct-2018 Instruction Type:Patient Education How to access health informa tion online - Detail Indication:Nonsmoker Start:03-Oct-2018 Instruction Type:Patient Education Patient Instructions Indication:Nonsmoker Start:03-Oct-2018 Instruction Type:Provider Instructions for Treatment How to access health informa tion online Indication:Nonsmoker Start:24-Jul-2018 Instruction Type:Patient Education How to access health informa tion online - Detail Indication:Nonsmoker Start:24-Jul-2018 Instruction Type:Patient Education Patient Instructions Indication:Nonsmoker Start:24-Jul-2018 Instruction Type:Provider Instructions for Treatment How to access health informa tion online - Detail Indication:Hypertension Start:20-Apr-2018 Instruction Type:Patient Education How to access health informa tion online Indication:Hypertension Start:20-Apr-2018 Instruction Type:Patient Education Patient Instructions Indication:BMI 20.0-20.9, adult Start:20-Apr-2018 Instruction Type:Provider Instructions for Treatment How to access health informa tion online Indication:Hypothyroidism Start:03-Apr-2018 Instruction Type:Patient Education How to access health informa tion online - Detail Indication:Hypothyroidism Start:03-Apr-2018 Instruction Type:Patient Education Patient Instructions Indication:Hypothyroidism Start:03-Apr-2018 Instruction Type:Provider Instructions for Treatment Patient Instructions Indication:Hypothyroidism Start:30-Aug-2017 Instruction Type:Provider Instructions for Treatment How to access health informa tion online Indication:Nonsmoker Start:30-Aug-2017 Instruction Type:Patient Education How to access health informa tion online - Detail Indication:Nonsmoker Start:30-Aug-2017 Instruction Type:Patient Education Patient Instructions Indication:Nonsmoker Start:30-Aug-2017 Instruction Type:Provider Instructions for Treatment DISCONTINUED - LIPID PANEL ( [id number]) Indication:Hyperlipidemia Start:27-Mar-2017 Instruction Type:Patient Education How to access health informa tion online Indication:Osteoporosis Start:27-Mar-2017 Instruction Type:Patient Education How to access health informa tion online - Detail Indication:Osteoporosis Start:27-Mar-2017 Instruction Type:Patient Education Patient Instructions Indication:Osteoporosis Start:27-Mar-2017 Instruction Type:Provider Instructions for Treatment Patient Instructions Indication:Leukopenia Start:24-Feb-2017 Instruction Type:Provider Instructions for Treatment How to access health informa tion online Indication:Hyperlipidemia Start:24-Feb-2017 Instruction Type:Patient Education How to access health informa tion online - Detail Indication:Hyperlipidemia Start:24-Feb-2017 Instruction Type:Patient Education Name Dates Details Patient Instructions Indication:Nonsmoker Start:21-Dec-2020 Instruction Type:Provider Instructions for Treatment How to Access Health Informa tion Online using Patient Portal and [employer]rd [employer] Apps Indication:Nonsmoker Start:21-Dec-2020 Instruction Type:Patient Education How to access health informa tion online Indication:Nonsmoker Start:19-Aug-2020 Instruction Type:Patient Education How to access health informa tion online - Detail Indication:Nonsmoker Start:19-Aug-2020 Instruction Type:Patient Education Patient Instructions Indication:Vitamin D insufficiency Start:19-Aug-2020 Instruction Type:Provider Instructions for Treatment How to access health informa tion online Indication:Nonsmoker Start:07-Apr-2020 Instruction Type:Patient Education How to access health informa tion online - Detail Indication:Nonsmoker Start:07-Apr-2020 Instruction Type:Patient Education Patient Instructions Indication:BMI 20.0-20.9, adult Start:07-Apr-2020 Instruction Type:Provider Instructions for Treatment How to access health informa tion online Indication:Nonsmoker Start:10-Jul-2019 Instruction Type:Patient Education How to access health informa tion online - Detail Indication:Nonsmoker Start:10-Jul-2019 Instruction Type:Patient Education Patient Instructions Indication:Nonsmoker Start:10-Jul-2019 Instruction Type:Provider Instructions for Treatment How to access health informa tion online Indication:BMI 20.0-20.9, adult Start:09-Apr-2019 Instruction Type:Patient Education How to access health informa tion online - Detail Indication:BMI 20.0-20.9, adult Start:09-Apr-2019 Instruction Type:Patient Education Patient Instructions Indication:Nonsmoker Start:09-Apr-2019 Instruction Type:Provider Instructions for Treatment How to access health informa tion online Indication:Pre-operative general physical examination Start:27-Feb-2019 Instruction Type:Patient Education How to access health informa tion online - Detail Indication:Pre-operative general physical examination Start:27-Feb-2019 Instruction Type:Patient Education Patient Instructions Indication:Pre-operative general physical examination Start:27-Feb-2019 Instruction Type:Provider Instructions for Treatment How to access health informa tion online Indication:Nonsmoker Start:24-Oct-2018 Instruction Type:Patient Education How to access health informa tion online - Detail Indication:Nonsmoker Start:24-Oct-2018 Instruction Type:Patient Education Patient Instructions Indication:Nonsmoker Start:24-Oct-2018 Instruction Type:Provider Instructions for Treatment How to access health informa tion online Indication:Nonsmoker Start:15-Oct-2018 Instruction Type:Patient Education How to access health informa tion online - Detail Indication:Nonsmoker Start:15-Oct-2018 Instruction Type:Patient Education Patient Instructions Indication:Nonsmoker Start:15-Oct-2018 Instruction Type:Provider Instructions for Treatment How to access health informa tion online Indication:Nonsmoker Start:03-Oct-2018 Instruction Type:Patient Education How to access health informa tion online - Detail Indication:Nonsmoker Start:03-Oct-2018 Instruction Type:Patient Education Patient Instructions Indication:Nonsmoker Start:03-Oct-2018 Instruction Type:Provider Instructions for Treatment How to access health informa tion online Indication:Nonsmoker Start:24-Jul-2018 Instruction Type:Patient Education How to access health informa tion online - Detail Indication:Nonsmoker Start:24-Jul-2018 Instruction Type:Patient Education Patient Instructions Indication:Nonsmoker Start:24-Jul-2018 Instruction Type:Provider Instructions for Treatment How to access health informa tion online - Detail Indication:Hypertension Start:20-Apr-2018 Instruction Type:Patient Education How to access health informa tion online Indication:Hypertension Start:20-Apr-2018 Instruction Type:Patient Education Patient Instructions Indication:BMI 20.0-20.9, adult Start:20-Apr-2018 Instruction Type:Provider Instructions for Treatment How to access health informa tion online Indication:Hypothyroidism Start:03-Apr-2018 Instruction Type:Patient Education How to access health informa tion online - Detail Indication:Hypothyroidism Start:03-Apr-2018 Instruction Type:Patient Education Patient Instructions Indication:Hypothyroidism Start:03-Apr-2018 Instruction Type:Provider Instructions for Treatment Patient Instructions Indication:Hypothyroidism Start:30-Aug-2017 Instruction Type:Provider Instructions for Treatment How to access health informa tion online Indication:Nonsmoker Start:30-Aug-2017 Instruction Type:Patient Education How to access health informa tion online - Detail Indication:Nonsmoker Start:30-Aug-2017 Instruction Type:Patient Education Patient Instructions Indication:Nonsmoker Start:30-Aug-2017 Instruction Type:Provider Instructions for Treatment DISCONTINUED - LIPID PANEL ( [id number]) Indication:Hyperlipidemia Start:27-Mar-2017 Instruction Type:Patient Education How to access health informa tion online Indication:Osteoporosis Start:27-Mar-2017 Instruction Type:Patient Education How to access health informa tion online - Detail Indication:Osteoporosis Start:27-Mar-2017 Instruction Type:Patient Education Patient Instructions Indication:Osteoporosis Start:27-Mar-2017 Instruction Type:Provider Instructions for Treatment Patient Instructions Indication:Leukopenia Start:24-Feb-2017 Instruction Type:Provider Instructions for Treatment How to access health informa tion online Indication:Hyperlipidemia Start:24-Feb-2017 Instruction Type:Patient Education How to access health informa tion online - Detail Indication:Hyperlipidemia Start:24-Feb-2017 Instruction Type:Patient Education Name Dates Details Patient Instructions Indication:Nonsmoker Start:21-Dec-2020 Instruction Type:Provider Instructions for Treatment How to Access Health Informa tion Online using Patient Portal and [employer] Apps Indication:Nonsmoker Start:21-Dec-2020 Instruction Type:Patient Education How to access health informa tion online Indication:Nonsmoker Start:19-Aug-2020 Instruction Type:Patient Education How to access health informa tion online - Detail Indication:Nonsmoker Start:19-Aug-2020 Instruction Type:Patient Education Patient Instructions Indication:Vitamin D insufficiency Start:19-Aug-2020 Instruction Type:Provider Instructions for Treatment How to access health informa tion online Indication:Nonsmoker Start:07-Apr-2020 Instruction Type:Patient Education How to access health informa tion online - Detail Indication:Nonsmoker Start:07-Apr-2020 Instruction Type:Patient Education Patient Instructions Indication:BMI 20.0-20.9, adult Start:07-Apr-2020 Instruction Type:Provider Instructions for Treatment How to access health informa tion online Indication:Nonsmoker Start:10-Jul-2019 Instruction Type:Patient Education How to access health informa tion online - Detail Indication:Nonsmoker Start:10-Jul-2019 Instruction Type:Patient Education Patient Instructions Indication:Nonsmoker Start:10-Jul-2019 Instruction Type:Provider Instructions for Treatment How to access health informa tion online Indication:BMI 20.0-20.9, adult Start:09-Apr-2019 Instruction Type:Patient Education How to access health informa tion online - Detail Indication:BMI 20.0-20.9, adult Start:09-Apr-2019 Instruction Type:Patient Education Patient Instructions Indication:Nonsmoker Start:09-Apr-2019 Instruction Type:Provider Instructions for Treatment How to access health informa tion online Indication:Pre-operative general physical examination Start:27-Feb-2019 Instruction Type:Patient Education How to access health informa tion online - Detail Indication:Pre-operative general physical examination Start:27-Feb-2019 Instruction Type:Patient Education Patient Instructions Indication:Pre-operative general physical examination Start:27-Feb-2019 Instruction Type:Provider Instructions for Treatment How to access health informa tion online Indication:Nonsmoker Start:24-Oct-2018 Instruction Type:Patient Education How to access health informa tion online - Detail Indication:Nonsmoker Start:24-Oct-2018 Instruction Type:Patient Education Patient Instructions Indication:Nonsmoker Start:24-Oct-2018 Instruction Type:Provider Instructions for Treatment How to access health informa tion online Indication:Nonsmoker Start:15-Oct-2018 Instruction Type:Patient Education How to access health informa tion online - Detail Indication:Nonsmoker Start:15-Oct-2018 Instruction Type:Patient Education Patient Instructions Indication:Nonsmoker Start:15-Oct-2018 Instruction Type:Provider Instructions for Treatment How to access health informa tion online Indication:Nonsmoker Start:03-Oct-2018 Instruction Type:Patient Education How to access health informa tion online - Detail Indication:Nonsmoker Start:03-Oct-2018 Instruction Type:Patient Education Patient Instructions Indication:Nonsmoker Start:03-Oct-2018 Instruction Type:Provider Instructions for Treatment How to access health informa tion online Indication:Nonsmoker Start:24-Jul-2018 Instruction Type:Patient Education How to access health informa tion online - Detail Indication:Nonsmoker Start:24-Jul-2018 Instruction Type:Patient Education Patient Instructions Indication:Nonsmoker Start:24-Jul-2018 Instruction Type:Provider Instructions for Treatment How to access health informa tion online - Detail Indication:Hypertension Start:20-Apr-2018 Instruction Type:Patient Education How to access health informa tion online Indication:Hypertension Start:20-Apr-2018 Instruction Type:Patient Education Patient Instructions Indication:BMI 20.0-20.9, adult Start:20-Apr-2018 Instruction Type:Provider Instructions for Treatment How to access health informa tion online Indication:Hypothyroidism Start:03-Apr-2018 Instruction Type:Patient Education How to access health informa tion online - Detail Indication:Hypothyroidism Start:03-Apr-2018 Instruction Type:Patient Education Patient Instructions Indication:Hypothyroidism Start:03-Apr-2018 Instruction Type:Provider Instructions for Treatment Patient Instructions Indication:Hypothyroidism Start:30-Aug-2017 Instruction Type:Provider Instructions for Treatment How to access health informa tion online Indication:Nonsmoker Start:30-Aug-2017 Instruction Type:Patient Education How to access health informa tion online - Detail Indication:Nonsmoker Start:30-Aug-2017 Instruction Type:Patient Education Patient Instructions Indication:Nonsmoker Start:30-Aug-2017 Instruction Type:Provider Instructions for Treatment DISCONTINUED - LIPID PANEL ( [id number]) Indication:Hyperlipidemia Start:27-Mar-2017 Instruction Type:Patient Education How to access health informa tion online Indication:Osteoporosis Start:27-Mar-2017 Instruction Type:Patient Education How to access health informa tion online - Detail Indication:Osteoporosis Start:27-Mar-2017 Instruction Type:Patient Education Patient Instructions Indication:Osteoporosis Start:27-Mar-2017 Instruction Type:Provider Instructions for Treatment Patient Instructions Indication:Leukopenia Start:24-Feb-2017 Instruction Type:Provider Instructions for Treatment How to access health informa tion online Indication:Hyperlipidemia Start:24-Feb-2017 Instruction Type:Patient Education How to access health informa tion online - Detail Indication:Hyperlipidemia Start:24-Feb-2017 Instruction Type:Patient Education Name Dates Details Patient Instructions Indication:Nonsmoker Start:21-Dec-2020 Instruction Type:Provider Instructions for Treatment How to Access Health Informa tion Online using Patient Portal and [employer]rd [employer] Apps Indication:Nonsmoker Start:21-Dec-2020 Instruction Type:Patient Education How to access health informa tion online Indication:Nonsmoker Start:19-Aug-2020 Instruction Type:Patient Education How to access health informa tion online - Detail Indication:Nonsmoker Start:19-Aug-2020 Instruction Type:Patient Education Patient Instructions Indication:Vitamin D insufficiency Start:19-Aug-2020 Instruction Type:Provider Instructions for Treatment How to access health informa tion online Indication:Nonsmoker Start:07-Apr-2020 Instruction Type:Patient Education How to access health informa tion online - Detail Indication:Nonsmoker Start:07-Apr-2020 Instruction Type:Patient Education Patient Instructions Indication:BMI 20.0-20.9, adult Start:07-Apr-2020 Instruction Type:Provider Instructions for Treatment How to access health informa tion online Indication:Nonsmoker Start:10-Jul-2019 Instruction Type:Patient Education How to access health informa tion online - Detail Indication:Nonsmoker Start:10-Jul-2019 Instruction Type:Patient Education Patient Instructions Indication:Nonsmoker Start:10-Jul-2019 Instruction Type:Provider Instructions for Treatment How to access health informa tion online Indication:BMI 20.0-20.9, adult Start:09-Apr-2019 Instruction Type:Patient Education How to access health informa tion online - Detail Indication:BMI 20.0-20.9, adult Start:09-Apr-2019 Instruction Type:Patient Education Patient Instructions Indication:Nonsmoker Start:09-Apr-2019 Instruction Type:Provider Instructions for Treatment How to access health informa tion online Indication:Pre-operative general physical examination Start:27-Feb-2019 Instruction Type:Patient Education How to access health informa tion online - Detail Indication:Pre-operative general physical examination Start:27-Feb-2019 Instruction Type:Patient Education Patient Instructions Indication:Pre-operative general physical examination Start:27-Feb-2019 Instruction Type:Provider Instructions for Treatment How to access health informa tion online Indication:Nonsmoker Start:24-Oct-2018 Instruction Type:Patient Education How to access health informa tion online - Detail Indication:Nonsmoker Start:24-Oct-2018 Instruction Type:Patient Education Patient Instructions Indication:Nonsmoker Start:24-Oct-2018 Instruction Type:Provider Instructions for Treatment How to access health informa tion online Indication:Nonsmoker Start:15-Oct-2018 Instruction Type:Patient Education How to access health informa tion online - Detail Indication:Nonsmoker Start:15-Oct-2018 Instruction Type:Patient Education Patient Instructions Indication:Nonsmoker Start:15-Oct-2018 Instruction Type:Provider Instructions for Treatment How to access health informa tion online Indication:Nonsmoker Start:03-Oct-2018 Instruction Type:Patient Education How to access health informa tion online - Detail Indication:Nonsmoker Start:03-Oct-2018 Instruction Type:Patient Education Patient Instructions Indication:Nonsmoker Start:03-Oct-2018 Instruction Type:Provider Instructions for Treatment How to access health informa tion online Indication:Nonsmoker Start:24-Jul-2018 Instruction Type:Patient Education How to access health informa tion online - Detail Indication:Nonsmoker Start:24-Jul-2018 Instruction Type:Patient Education Patient Instructions Indication:Nonsmoker Start:24-Jul-2018 Instruction Type:Provider Instructions for Treatment How to access health informa tion online - Detail Indication:Hypertension Start:20-Apr-2018 Instruction Type:Patient Education How to access health informa tion online Indication:Hypertension Start:20-Apr-2018 Instruction Type:Patient Education Patient Instructions Indication:BMI 20.0-20.9, adult Start:20-Apr-2018 Instruction Type:Provider Instructions for Treatment How to access health informa tion online Indication:Hypothyroidism Start:03-Apr-2018 Instruction Type:Patient Education How to access health informa tion online - Detail Indication:Hypothyroidism Start:03-Apr-2018 Instruction Type:Patient Education Patient Instructions Indication:Hypothyroidism Start:03-Apr-2018 Instruction Type:Provider Instructions for Treatment Patient Instructions Indication:Hypothyroidism Start:30-Aug-2017 Instruction Type:Provider Instructions for Treatment How to access health informa tion online Indication:Nonsmoker Start:30-Aug-2017 Instruction Type:Patient Education How to access health informa tion online - Detail Indication:Nonsmoker Start:30-Aug-2017 Instruction Type:Patient Education Patient Instructions Indication:Nonsmoker Start:30-Aug-2017 Instruction Type:Provider Instructions for Treatment DISCONTINUED - LIPID PANEL ( [id number]) Indication:Hyperlipidemia Start:27-Mar-2017 Instruction Type:Patient Education How to access health informa tion online Indication:Osteoporosis Start:27-Mar-2017 Instruction Type:Patient Education How to access health informa tion online - Detail Indication:Osteoporosis Start:27-Mar-2017 Instruction Type:Patient Education Patient Instructions Indication:Osteoporosis Start:27-Mar-2017 Instruction Type:Provider Instructions for Treatment Patient Instructions Indication:Leukopenia Start:24-Feb-2017 Instruction Type:Provider Instructions for Treatment How to access health informa tion online Indication:Hyperlipidemia Start:24-Feb-2017 Instruction Type:Patient Education How to access health informa tion online - Detail Indication:Hyperlipidemia Start:24-Feb-2017 Instruction Type:Patient Education Name Dates Details How to access health informa tion online Indication:BMI 20.0-20.9, adult Start:09-Apr-2019 Instruction Type:Patient Education How to access health informa tion online - Detail Indication:BMI 20.0-20.9, adult Start:09-Apr-2019 Instruction Type:Patient Education Patient Instructions Indication:Nonsmoker Start:09-Apr-2019 Instruction Type:Provider Instructions for Treatment How to access health informa tion online Indication:Pre-operative general physical examination Start:27-Feb-2019 Instruction Type:Patient Education How to access health informa tion online - Detail Indication:Pre-operative general physical examination Start:27-Feb-2019 Instruction Type:Patient Education Patient Instructions Indication:Pre-operative general physical examination Start:27-Feb-2019 Instruction Type:Provider Instructions for Treatment How to access health informa tion online Indication:Nonsmoker Start:24-Oct-2018 Instruction Type:Patient Education How to access health informa tion online - Detail Indication:Nonsmoker Start:24-Oct-2018 Instruction Type:Patient Education Patient Instructions Indication:Nonsmoker Start:24-Oct-2018 Instruction Type:Provider Instructions for Treatment How to access health informa tion online Indication:Nonsmoker Start:15-Oct-2018 Instruction Type:Patient Education How to access health informa tion online - Detail Indication:Nonsmoker Start:15-Oct-2018 Instruction Type:Patient Education Patient Instructions Indication:Nonsmoker Start:15-Oct-2018 Instruction Type:Provider Instructions for Treatment How to access health informa tion online Indication:Nonsmoker Start:03-Oct-2018 Instruction Type:Patient Education How to access health informa tion online - Detail Indication:Nonsmoker Start:03-Oct-2018 Instruction Type:Patient Education Patient Instructions Indication:Nonsmoker Start:03-Oct-2018 Instruction Type:Provider Instructions for Treatment How to access health informa tion online Indication:Nonsmoker Start:24-Jul-2018 Instruction Type:Patient Education How to access health informa tion online - Detail Indication:Nonsmoker Start:24-Jul-2018 Instruction Type:Patient Education Patient Instructions Indication:Nonsmoker Start:24-Jul-2018 Instruction Type:Provider Instructions for Treatment How to access health informa tion online - Detail Indication:Hypertension Start:20-Apr-2018 Instruction Type:Patient Education How to access health informa tion online Indication:Hypertension Start:20-Apr-2018 Instruction Type:Patient Education Patient Instructions Indication:BMI 20.0-20.9, adult Start:20-Apr-2018 Instruction Type:Provider Instructions for Treatment How to access health informa tion online Indication:Hypothyroidism Start:03-Apr-2018 Instruction Type:Patient Education How to access health informa tion online - Detail Indication:Hypothyroidism Start:03-Apr-2018 Instruction Type:Patient Education Patient Instructions Indication:Hypothyroidism Start:03-Apr-2018 Instruction Type:Provider Instructions for Treatment Patient Instructions Indication:Hypothyroidism Start:30-Aug-2017 Instruction Type:Provider Instructions for Treatment How to access health informa tion online Indication:Nonsmoker Start:30-Aug-2017 Instruction Type:Patient Education How to access health informa tion online - Detail Indication:Nonsmoker Start:30-Aug-2017 Instruction Type:Patient Education Patient Instructions Indication:Nonsmoker Start:30-Aug-2017 Instruction Type:Provider Instructions for Treatment DISCONTINUED - LIPID PANEL ( [id number]) Indication:Hyperlipidemia Start:27-Mar-2017 Instruction Type:Patient Education How to access health informa tion online Indication:Osteoporosis Start:27-Mar-2017 Instruction Type:Patient Education How to access health informa tion online - Detail Indication:Osteoporosis Start:27-Mar-2017 Instruction Type:Patient Education Patient Instructions Indication:Osteoporosis Start:27-Mar-2017 Instruction Type:Provider Instructions for Treatment Patient Instructions Indication:Leukopenia Start:24-Feb-2017 Instruction Type:Provider Instructions for Treatment How to access health informa tion online Indication:Hyperlipidemia Start:24-Feb-2017 Instruction Type:Patient Education How to access health informa tion online - Detail Indication:Hyperlipidemia Start:24-Feb-2017 Instruction Type:Patient Education Name Dates Details How to access health informa tion online Indication:BMI 20.0-20.9, adult Start:09-Apr-2019 Instruction Type:Patient Education How to access health informa tion online - Detail Indication:BMI 20.0-20.9, adult Start:09-Apr-2019 Instruction Type:Patient Education Patient Instructions Indication:Nonsmoker Start:09-Apr-2019 Instruction Type:Provider Instructions for Treatment How to access health informa tion online Indication:Pre-operative general physical examination Start:27-Feb-2019 Instruction Type:Patient Education How to access health informa tion online - Detail Indication:Pre-operative general physical examination Start:27-Feb-2019 Instruction Type:Patient Education Patient Instructions Indication:Pre-operative general physical examination Start:27-Feb-2019 Instruction Type:Provider Instructions for Treatment How to access health informa tion online Indication:Nonsmoker Start:24-Oct-2018 Instruction Type:Patient Education How to access health informa tion online - Detail Indication:Nonsmoker Start:24-Oct-2018 Instruction Type:Patient Education Patient Instructions Indication:Nonsmoker Start:24-Oct-2018 Instruction Type:Provider Instructions for Treatment How to access health informa tion online Indication:Nonsmoker Start:15-Oct-2018 Instruction Type:Patient Education How to access health informa tion online - Detail Indication:Nonsmoker Start:15-Oct-2018 Instruction Type:Patient Education Patient Instructions Indication:Nonsmoker Start:15-Oct-2018 Instruction Type:Provider Instructions for Treatment How to access health informa tion online Indication:Nonsmoker Start:03-Oct-2018 Instruction Type:Patient Education How to access health informa tion online - Detail Indication:Nonsmoker Start:03-Oct-2018 Instruction Type:Patient Education Patient Instructions Indication:Nonsmoker Start:03-Oct-2018 Instruction Type:Provider Instructions for Treatment How to access health informa tion online Indication:Nonsmoker Start:24-Jul-2018 Instruction Type:Patient Education How to access health informa tion online - Detail Indication:Nonsmoker Start:24-Jul-2018 Instruction Type:Patient Education Patient Instructions Indication:Nonsmoker Start:24-Jul-2018 Instruction Type:Provider Instructions for Treatment How to access health informa tion online - Detail Indication:Hypertension Start:20-Apr-2018 Instruction Type:Patient Education How to access health informa tion online Indication:Hypertension Start:20-Apr-2018 Instruction Type:Patient Education Patient Instructions Indication:BMI 20.0-20.9, adult Start:20-Apr-2018 Instruction Type:Provider Instructions for Treatment How to access health informa tion online Indication:Hypothyroidism Start:03-Apr-2018 Instruction Type:Patient Education How to access health informa tion online - Detail Indication:Hypothyroidism Start:03-Apr-2018 Instruction Type:Patient Education Patient Instructions Indication:Hypothyroidism Start:03-Apr-2018 Instruction Type:Provider Instructions for Treatment Patient Instructions Indication:Hypothyroidism Start:30-Aug-2017 Instruction Type:Provider Instructions for Treatment How to access health informa tion online Indication:Nonsmoker Start:30-Aug-2017 Instruction Type:Patient Education How to access health informa tion online - Detail Indication:Nonsmoker Start:30-Aug-2017 Instruction Type:Patient Education Patient Instructions Indication:Nonsmoker Start:30-Aug-2017 Instruction Type:Provider Instructions for Treatment DISCONTINUED - LIPID PANEL ( [id number]) Indication:Hyperlipidemia Start:27-Mar-2017 Instruction Type:Patient Education How to access health informa tion online Indication:Osteoporosis Start:27-Mar-2017 Instruction Type:Patient Education How to access health informa tion online - Detail Indication:Osteoporosis Start:27-Mar-2017 Instruction Type:Patient Education Patient Instructions Indication:Osteoporosis Start:27-Mar-2017 Instruction Type:Provider Instructions for Treatment Patient Instructions Indication:Leukopenia Start:24-Feb-2017 Instruction Type:Provider Instructions for Treatment How to access health informa tion online Indication:Hyperlipidemia Start:24-Feb-2017 Instruction Type:Patient Education How to access health informa tion online - Detail Indication:Hyperlipidemia Start:24-Feb-2017 Instruction Type:Patient Education Name Dates Details How to access health informa tion online Indication:BMI 20.0-20.9, adult Start:09-Apr-2019 Instruction Type:Patient Education How to access health informa tion online - Detail Indication:BMI 20.0-20.9, adult Start:09-Apr-2019 Instruction Type:Patient Education Patient Instructions Start:09-Apr-2019 Instruction Type:Provider Instructions for Treatment How to access health informa tion online Indication:Pre-operative general physical examination Start:27-Feb-2019 Instruction Type:Patient Education How to access health informa tion online - Detail Indication:Pre-operative general physical examination Start:27-Feb-2019 Instruction Type:Patient Education Patient Instructions Indication:Pre-operative general physical examination Start:27-Feb-2019 Instruction Type:Provider Instructions for Treatment How to access health informa tion online Start:24-Oct-2018 Instruction Type:Patient Education How to access health informa tion online - Detail Start:24-Oct-2018 Instruction Type:Patient Education Patient Instructions Start:24-Oct-2018 Instruction Type:Provider Instructions for Treatment How to access health informa tion online Start:15-Oct-2018 Instruction Type:Patient Education How to access health informa tion online - Detail Start:15-Oct-2018 Instruction Type:Patient Education Patient Instructions Start:15-Oct-2018 Instruction Type:Provider Instructions for Treatment How to access health informa tion online Start:03-Oct-2018 Instruction Type:Patient Education How to access health informa tion online - Detail Start:03-Oct-2018 Instruction Type:Patient Education Patient Instructions Start:03-Oct-2018 Instruction Type:Provider Instructions for Treatment How to access health informa tion online Start:24-Jul-2018 Instruction Type:Patient Education How to access health informa tion online - Detail Start:24-Jul-2018 Instruction Type:Patient Education Patient Instructions Start:24-Jul-2018 Instruction Type:Provider Instructions for Treatment How to access health informa tion online - Detail Indication:Hypertension Start:20-Apr-2018 Instruction Type:Patient Education How to access health informa tion online Indication:Hypertension Start:20-Apr-2018 Instruction Type:Patient Education Patient Instructions Indication:BMI 20.0-20.9, adult Start:20-Apr-2018 Instruction Type:Provider Instructions for Treatment How to access health informa tion online Indication:Hypothyroidism Start:03-Apr-2018 Instruction Type:Patient Education How to access health informa tion online - Detail Indication:Hypothyroidism Start:03-Apr-2018 Instruction Type:Patient Education Patient Instructions Indication:Hypothyroidism Start:03-Apr-2018 Instruction Type:Provider Instructions for Treatment Patient Instructions Indication:Hypothyroidism Start:30-Aug-2017 Instruction Type:Provider Instructions for Treatment How to access health informa tion online Start:30-Aug-2017 Instruction Type:Patient Education How to access health informa tion online - Detail Start:30-Aug-2017 Instruction Type:Patient Education Patient Instructions Start:30-Aug-2017 Instruction Type:Provider Instructions for Treatment DISCONTINUED - LIPID PANEL ( [id number]) Indication:Hyperlipidemia Start:27-Mar-2017 Instruction Type:Patient Education How to access health informa tion online Indication:Osteoporosis Start:27-Mar-2017 Instruction Type:Patient Education How to access health informa tion online - Detail Indication:Osteoporosis Start:27-Mar-2017 Instruction Type:Patient Education Patient Instructions Indication:Osteoporosis Start:27-Mar-2017 Instruction Type:Provider Instructions for Treatment Patient Instructions Indication:Leukopenia Start:24-Feb-2017 Instruction Type:Provider Instructions for Treatment How to access health informa tion online Indication:Hyperlipidemia Start:24-Feb-2017 Instruction Type:Patient Education How to access health informa tion online - Detail Indication:Hyperlipidemia Start:24-Feb-2017 Instruction Type:Patient Education Name Dates Details How to access health informa tion online Indication:BMI 20.0-20.9, adult Start:09-Apr-2019 Instruction Type:Patient Education How to access health informa tion online - Detail Indication:BMI 20.0-20.9, adult Start:09-Apr-2019 Instruction Type:Patient Education Patient Instructions Indication:Nonsmoker Start:09-Apr-2019 Instruction Type:Provider Instructions for Treatment How to access health informa tion online Indication:Pre-operative general physical examination Start:27-Feb-2019 Instruction Type:Patient Education How to access health informa tion online - Detail Indication:Pre-operative general physical examination Start:27-Feb-2019 Instruction Type:Patient Education Patient Instructions Indication:Pre-operative general physical examination Start:27-Feb-2019 Instruction Type:Provider Instructions for Treatment How to access health informa tion online Indication:Nonsmoker Start:24-Oct-2018 Instruction Type:Patient Education How to access health informa tion online - Detail Indication:Nonsmoker Start:24-Oct-2018 Instruction Type:Patient Education Patient Instructions Indication:Nonsmoker Start:24-Oct-2018 Instruction Type:Provider Instructions for Treatment How to access health informa tion online Indication:Nonsmoker Start:15-Oct-2018 Instruction Type:Patient Education How to access health informa tion online - Detail Indication:Nonsmoker Start:15-Oct-2018 Instruction Type:Patient Education Patient Instructions Indication:Nonsmoker Start:15-Oct-2018 Instruction Type:Provider Instructions for Treatment How to access health informa tion online Indication:Nonsmoker Start:03-Oct-2018 Instruction Type:Patient Education How to access health informa tion online - Detail Indication:Nonsmoker Start:03-Oct-2018 Instruction Type:Patient Education Patient Instructions Indication:Nonsmoker Start:03-Oct-2018 Instruction Type:Provider Instructions for Treatment How to access health informa tion online Indication:Nonsmoker Start:24-Jul-2018 Instruction Type:Patient Education How to access health informa tion online - Detail Indication:Nonsmoker Start:24-Jul-2018 Instruction Type:Patient Education Patient Instructions Indication:Nonsmoker Start:24-Jul-2018 Instruction Type:Provider Instructions for Treatment How to access health informa tion online - Detail Indication:Hypertension Start:20-Apr-2018 Instruction Type:Patient Education How to access health informa tion online Indication:Hypertension Start:20-Apr-2018 Instruction Type:Patient Education Patient Instructions Indication:BMI 20.0-20.9, adult Start:20-Apr-2018 Instruction Type:Provider Instructions for Treatment How to access health informa tion online Indication:Hypothyroidism Start:03-Apr-2018 Instruction Type:Patient Education How to access health informa tion online - Detail Indication:Hypothyroidism Start:03-Apr-2018 Instruction Type:Patient Education Patient Instructions Indication:Hypothyroidism Start:03-Apr-2018 Instruction Type:Provider Instructions for Treatment Patient Instructions Indication:Hypothyroidism Start:30-Aug-2017 Instruction Type:Provider Instructions for Treatment How to access health informa tion online Indication:Nonsmoker Start:30-Aug-2017 Instruction Type:Patient Education How to access health informa tion online - Detail Indication:Nonsmoker Start:30-Aug-2017 Instruction Type:Patient Education Patient Instructions Indication:Nonsmoker Start:30-Aug-2017 Instruction Type:Provider Instructions for Treatment DISCONTINUED - LIPID PANEL ( [id number]) Indication:Hyperlipidemia Start:27-Mar-2017 Instruction Type:Patient Education How to access health informa tion online Indication:Osteoporosis Start:27-Mar-2017 Instruction Type:Patient Education How to access health informa tion online - Detail Indication:Osteoporosis Start:27-Mar-2017 Instruction Type:Patient Education Patient Instructions Indication:Osteoporosis Start:27-Mar-2017 Instruction Type:Provider Instructions for Treatment Patient Instructions Indication:Leukopenia Start:24-Feb-2017 Instruction Type:Provider Instructions for Treatment How to access health informa tion online Indication:Hyperlipidemia Start:24-Feb-2017 Instruction Type:Patient Education How to access health informa tion online - Detail Indication:Hyperlipidemia Start:24-Feb-2017 Instruction Type:Patient Education Advance Directives No Advanced Directives Records Found Name Dates Details Immunization Registry [place] - Effective on 07/24/2018. Expiration date unspecified Effective:24-Jul-2018 Name Dates Details Immunization Registry [place] - Effective on 07/24/2018. Expiration date unspecified Effective:24-Jul-2018 Name Dates Details Living Will - Effective on . Expiration date unspecified. Scanned Document is available upon request. Effective:24-Oct-2018 Immunization Registry [place] - Effective on 07/24/2018. Expiration date unspecified Effective:24-Jul-2018 Name Dates Details Living Will - Effective on . Expiration date unspecified. Scanned Document is available upon request. Effective:24-Oct-2018 Immunization Registry [place] - Effective on 07/24/2018. Expiration date unspecified Effective:24-Jul-2018 Name Dates Details Living Will - Effective on . Expiration date unspecified. Scanned Document is available upon request. Effective:24-Oct-2018 Immunization Registry [place] - Effective on 07/24/2018. Expiration date unspecified Effective:24-Jul-2018 Name Dates Details Living Will - Effective on . Expiration date unspecified. Scanned Document is available upon request. Effective:24-Oct-2018 Immunization Registry [place] - Effective on 07/24/2018. Expiration date unspecified Effective:24-Jul-2018 Name Dates Details Living Will - Effective on . Expiration date unspecified. Scanned Document is available upon request. Effective:24-Oct-2018 Immunization Registry [place] - Effective on 07/24/2018. Expiration date unspecified Effective:24-Jul-2018 Name Dates Details Living Will - Effective on . Expiration date unspecified. Scanned Document is available upon request. Effective:24-Oct-2018 Immunization Registry [place] - Effective on 07/24/2018. Expiration date unspecified Effective:24-Jul-2018 Name Dates Details Living Will - Effective on . Expiration date unspecified. Scanned Document is available upon request. Effective:24-Oct-2018 Immunization Registry [place] - Effective on 07/24/2018. Expiration date unspecified Effective:24-Jul-2018 Name Dates Details Living Will - Effective on . Expiration date unspecified. Scanned Document is available upon request. Effective:24-Oct-2018 Immunization Registry [place] - Effective on 07/24/2018. Expiration date unspecified Effective:24-Jul-2018 Name Dates Details Living Will - Effective on . Expiration date unspecified. Scanned Document is available upon request. Effective:15-May-2019 Immunization Registry [place] - Effective on 07/24/2018. Expiration date unspecified Effective:24-Jul-2018 Name Dates Details Living Will - Effective on . Expiration date unspecified. Scanned Document is available upon request. Effective:15-May-2019 Immunization Registry [place] - Effective on 07/24/2018. Expiration date unspecified Effective:24-Jul-2018 Name Dates Details Living Will - Effective on . Expiration date unspecified. Scanned Document is available upon request. Effective:15-May-2019 Immunization Registry [place] - Effective on 07/24/2018. Expiration date unspecified Effective:24-Jul-2018 Name Dates Details Living Will - Effective on . Expiration date unspecified. Scanned Document is available upon request. Effective:15-May-2019 Immunization Registry [place] - Effective on 07/24/2018. Expiration date unspecified Effective:24-Jul-2018 Name Dates Details Living Will - Effective on . Expiration date unspecified. Scanned Document is available upon request. Effective:15-May-2019 Immunization Registry [place] - Effective on 07/24/2018. Expiration date unspecified Effective:24-Jul-2018 Name Dates Details Living Will - Effective on . Expiration date unspecified. Scanned Document is available upon request. Effective:15-May-2019 Immunization Registry [place] - Effective on 07/24/2018. Expiration date unspecified Effective:24-Jul-2018 Name Dates Details Living Will - Effective on . Expiration date unspecified. Scanned Document is available upon request. Effective:15-May-2019 Immunization Registry [place] - Effective on 07/24/2018. Expiration date unspecified Effective:24-Jul-2018 Name Dates Details Living Will - Effective on . Expiration date unspecified. Scanned Document is available upon request. Effective:15-May-2019 Immunization Registry [place] - Effective on 07/24/2018. Expiration date unspecified Effective:24-Jul-2018 Name Dates Details Living Will - Effective on . Expiration date unspecified. Scanned Document is available upon request. Effective:15-May-2019 Immunization Registry [place] - Effective on 07/24/2018. Expiration date unspecified Effective:24-Jul-2018 Name Dates Details Living Will - Effective on . Expiration date unspecified. Scanned Document is available upon request. Effective:15-May-2019 Immunization Registry [place] - Effective on 07/24/2018. Expiration date unspecified Effective:24-Jul-2018 Name Dates Details Living Will - Effective on . Expiration date unspecified. Scanned Document is available upon request. Effective:15-May-2019 Immunization Registry [place] - Effective on 07/24/2018. Expiration date unspecified Effective:24-Jul-2018 Name Dates Details Living Will - Effective on . Expiration date unspecified. Scanned Document is available upon request. Effective:15-May-2019 Immunization Registry [place] - Effective on 07/24/2018. Expiration date unspecified Effective:24-Jul-2018 Name Dates Details Living Will - Effective on . Expiration date unspecified. Scanned Document is available upon request. Effective:15-May-2019 Immunization Registry [place] - Effective on 07/24/2018. Expiration date unspecified Effective:24-Jul-2018 Name Dates Details Living Will - Effective on . Expiration date unspecified. Scanned Document is available upon request. Effective:15-May-2019 Immunization Registry [place] - Effective on 07/24/2018. Expiration date unspecified Effective:24-Jul-2018 Name Dates Details Living Will - Effective on . Expiration date unspecified. Scanned Document is available upon request. Effective:15-May-2019 Immunization Registry [place] - Effective on 07/24/2018. Expiration date unspecified Effective:24-Jul-2018 Name Dates Details Living Will - Effective on . Expiration date unspecified. Scanned Document is available upon request. Effective:15-May-2019 Immunization Registry [place] - Effective on 07/24/2018. Expiration date unspecified Effective:24-Jul-2018 Name Dates Details Living Will - Effective on . Expiration date unspecified. Scanned Document is available upon request. Effective:15-May-2019 Immunization Registry [place] - Effective on 07/24/2018. Expiration date unspecified Effective:24-Jul-2018 Name Dates Details Living Will - Effective on . Expiration date unspecified. Scanned Document is available upon request. Effective:15-May-2019 Immunization Registry [place] - Effective on 07/24/2018. Expiration date unspecified Effective:24-Jul-2018 Name Dates Details Living Will - Effective on . Expiration date unspecified. Scanned Document is available upon request. Effective:15-May-2019 Immunization Registry [place] - Effective on 07/24/2018. Expiration date unspecified Effective:24-Jul-2018 Name Dates Details Living Will - Effective on . Expiration date unspecified. Scanned Document is available upon request. Effective:15-May-2019 Immunization Registry [place] - Effective on 07/24/2018. Expiration date unspecified Effective:24-Jul-2018 Name Dates Details Living Will - Effective on . Expiration date unspecified. Scanned Document is available upon request. Effective:15-May-2019 Immunization Registry [place] - Effective on 07/24/2018. Expiration date unspecified Effective:24-Jul-2018 Name Dates Details Living Will - Effective on . Expiration date unspecified. Scanned Document is available upon request. Effective:15-May-2019 Immunization Registry [place] - Effective on 07/24/2018. Expiration date unspecified Effective:24-Jul-2018 Name Dates Details Living Will - Effective on . Expiration date unspecified. Scanned Document is available upon request. Effective:15-May-2019 Immunization Registry [place] - Effective on 07/24/2018. Expiration date unspecified Effective:24-Jul-2018 Name Dates Details Living Will - Effective on . Expiration date unspecified. Scanned Document is available upon request. Effective:15-May-2019 Immunization Registry [place] - Effective on 07/24/2018. Expiration date unspecified Effective:24-Jul-2018 Name Dates Details Living Will - Effective on . Expiration date unspecified. Scanned Document is available upon request. Effective:15-May-2019 Immunization Registry [place] - Effective on 07/24/2018. Expiration date unspecified Effective:24-Jul-2018 Name Dates Details Living Will - Effective on . Expiration date unspecified. Scanned Document is available upon request. Effective:15-May-2019 Immunization Registry [place] - Effective on 07/24/2018. Expiration date unspecified Effective:24-Jul-2018 Name Dates Details Living Will - Effective on . Expiration date unspecified. Scanned Document is available upon request. Effective:15-May-2019 Immunization Registry [place] - Effective on 07/24/2018. Expiration date unspecified Effective:24-Jul-2018 Name Dates Details Living Will - Effective on . Expiration date unspecified. Scanned Document is available upon request. Effective:15-May-2019 Immunization Registry [place] - Effective on 07/24/2018. Expiration date unspecified Effective:24-Jul-2018 Advance Directive Response Recorded Date/ Time Name of Medical Power of Director Of Accreditation Rita Tsang May 09, 2023 7:18am Living Will No May 13, 2023 9:19am Power of Director Of Accreditation No May 13 9:19am Name Dates Details Living Will - Effective on . Expiration date unspecified. Scanned Document is available upon request. Effective:15-May-2019 Immunization Registry [place] - Effective on 07/24/2018. Expiration date unspecified Effective:24-Jul-2018 Advance Directive Response Recorded Date/ Time Name of Medical Power of Director Of Accreditation Rita Tsang May 09, 2023 7:18am Living Will No May 13, 2023 1:41pm Power of Director Of Accreditation No May 13 1:41pm Name Dates Details Living Will - Effective on . Expiration date unspecified. Scanned Document is available upon request. Effective:15-May-2019 Immunization Registry [place] - Effective on 07/24/2018. Expiration date unspecified Effective:24-Jul-2018 Name Dates Details Living Will - Effective on . Expiration date unspecified. Scanned Document is available upon request. Effective:15-May-2019 Immunization Registry [place] - Effective on 07/24/2018. Expiration date unspecified Effective:24-Jul-2018 Name Dates Details Living Will - Effective on . Expiration date unspecified. Scanned Document is available upon request. Effective:15-May-2019 Immunization Registry [place] - Effective on 07/24/2018. Expiration date unspecified Effective:24-Jul-2018 Advance Directive Response Recorded Date/ Time Living Will No May 13, 2023 12:41pm Power of Director Of Accreditation No May 13 12:41pm Advance Directive Response Recorded Date/ Time Living Will No May 13, 2023 1:41pm Power of Director Of Accreditation No May 13 1:41pm Advance Directive Response Recorded Date/ Time Living Will No May 13, 2023 1:41pm Do you have a Healthcare Power of Director Of Accreditation? No May 13, 2023 1:41pm Advance Directive Response Recorded Date/ Time Do you have a Healthcare Power of Director Of Accreditation? Yes April 09, 2025 10:19pm Summary Purpose Chief Complaint and Reason for Visit Chief Complaint LEFT SHOULDER Tachycardia, unspecified Chief Complaint LEFT SHOULDER Tachycardia, unspecified DIZZINESS DIZZINESS Chief Complaint LEFT SHOULDER Tachycardia, unspecified DIZZINESS DIZZINESS DIZZY ([facility]) RIGHT HIP xray HYPERTENSION lumbar pain w/ radiculopathy. rx here Reason for Visit Elevated BP without diagnosis of hypertension Chief Complaint LEFT SHOULDER Tachycardia, unspecified DIZZINESS DIZZINESS DIZZY ([facility]) RIGHT HIP xray HYPERTENSION lumbar pain w/ radiculopathy. rx here Reason for Visit Elevated BP without diagnosis of hypertension Lumbar back pain with radiculopathy affecting right lower extremity Chief Complaint Tachycardia, unspeci fied DIZZINESS DIZZINESS DIZZY ([facility]) RIGHT HIP xray HYPERTENSION lumbar pain w/ radiculopathy. rx here SCREENING UNSTABLE GAIT. RX HERE Reason for Visit Elevated BP without diagnosis of hypertension Lumbar back pain with radiculopathy affecting right lower extremity Chief Complaint DIZZY ([facility]) RIGHT HIP xray HYPERTENSION lumbar pain w/ radiculopathy. rx here SCREENING 3 M FU UNSTABLE GAIT. RX HERE Reason for Visit Elevated BP without diagnosis of hypertension Lumbar back pain with radiculopathy affecting right lower extremity Elevated BP without diagnosis of hypertension Chief Complaint ABNORMAL CBC, ELEVAT ED BILI Chief Complaint SCREENING Chief Complaint SCREENING palpitation ACUTE CHOLELITHIASIS & CHOLEDOCHOLITHIASIS Reason for Visit Cholecystitis Choledocholithiasis Chief Complaint SCREENING palpitation ACUTE CHOLELITHIASIS & CHOLEDOCHOLITHIASIS ACUTE CHOLELITHIASIS & CHOLEDOCHOLITHIASIS ACUTE CHOLELITHIASIS & CHOLEDOCHOLITHIASIS ACUTE CHOLELITHIASIS & CHOLEDOCHOLITHIASIS ACUTE CHOLELITHIASIS & CHOLEDOCHOLITHIASIS ACUTE CHOLELITHIASIS & CHOLEDOCHOLITHIASIS ACUTE CHOLELITHIASIS & CHOLEDOCHOLITHIASIS ACUTE CHOLELITHIASIS & CHOLEDOCHOLITHIASIS ACUTE CHOLELITHIASIS & CHOLEDOCHOLITHIASIS ACUTE CHOLELITHIASIS & CHOLEDOCHOLITHIASIS ACUTE CHOLELITHIASIS & CHOLEDOCHOLITHIASIS ACUTE CHOLELITHIASIS & CHOLEDOCHOLITHIASIS ACUTE CHOLELITHIASIS & CHOLEDOCHOLITHIASIS ACUTE CHOLELITHIASIS & CHOLEDOCHOLITHIASIS ACUTE CHOLELITHIASIS & CHOLEDOCHOLITHIASIS 8/2 1 Y FU Reason for Visit Biliary obstruction Cholecystitis Choledocholithiasis S/P ERCP S/P laparoscopic cholecystectomy Essential hypertension Hyperlipidemia Mitral valve annular calcification Chief Complaint Admit Date 6 M FU October 03, 2024 8:25am EST NEW PT -PPW BROUGHT IN December 26 8:13am Reason for Visit Admit Date Essential hypertension October 03 8:25am Mitral valve annular calcification Decem 2023 8:25am Palpitations October 03, 2024 8:25am Hyperlipidemia October 03, 2024 8:25am Fatigue December 26, 2024 8:1 3am Essential hypertension December 26, 2024 8:13am Mitral valve annular calcification December 26, 2024 8:13am Acquired hypothyroidism December 26, 2024 8:13am Establishing care with new doctormary for December 26, 2024 8:13am Osteoporosis December 26, 2024 8:1 3am Anxiety December 26, 2024 8:1 3am Chief Complaint Admit Date EST NEW PT -PPW BROUGHT IN December 26 8:13am Osteoporosis March 06, 2025 8:11a m EORDER April 07, 2025 11:0 2am L SIDE PELVIS/LEG PAIN FROM LIGHT FALL J une 2024 11:25am Reason for Visit Admit Date Fatigue December 26, 2024 8:1 3am Essential hypertension December 26, 2024 8:13am Mitral valve annular calcification December 26, 2024 8:13am Acquired hypothyroidism December 26, 2024 8:13am Establishing care with new doctormary for December 26, 2024 8:13am Osteoporosis December 26, 2024 8:1 3am Anxiety December 26, 2024 8:1 3am Hypothyroidism March 06, 2025 8:11a m Osteoporosis March 06, 2025 8:11a m Chief Complaint Admit Date EST NEW PT -PPW BROUGHT IN December 26 8:13am Osteoporosis March 06, 2025 8:11a m EORDER April 07, 2025 11:0 2am L SIDE PELVIS/LEG PAIN FROM LIGHT FALL J une 2024 11:25am BUTTOCK PAIN April 09, 2025 7:33 pm Reason for Visit Admit Date Fatigue December 26, 2024 8:1 3am Essential hypertension December 26, 2024 8:13am Mitral valve annular calcification December 26, 2024 8:13am Acquired hypothyroidism December 26, 2024 8:13am Establishing care with new doctor, mary gandhi for December 26, 2024 8:13am Osteoporosis December 26, 2024 8:1 3am Anxiety December 26, 2024 8:1 3am Hypothyroidism March 06, 2025 8:11a m Osteoporosis March 06, 2025 8:11a m Lumbar radiculopathy April 07, 2025 11: 25am Lumbar strain April 07, 2025 11:2 5am Strain of left hip April 07, 2025 11:2 5am Additional Source Comments INFORMATION SOURCE (unrecogn ized section and content) DATE CREATED AUTHOR 03/18/2019 [facility] DATE CREATED AUTHOR AUTHOR'S ORGANIZ ATION 01/04/2023 [facility] DATE CREATED AUTHOR AUTHOR'S ORGANIZ ATION 04/11/2025 [facility] Goals (unrecognized section and content) Goals may be documented in a n alternate sectionGoals may be documented in an alternate sectionGoals may be documented in an alternate sectionGoals may be documented in an alternate sectionGoals may be documented in an alternate sectionGoals may be documented in an alternate sectionGoals may be documented in an alternate sectionGoals may be documented in an alternate sectionGoals may be documented in an alternate sectionGoals may be documented in an alternate sectionGoals may be documented in an alternate sectionGoals may be documented in an alternate sectionGoals may be documented in an alternate sectionGoals may be documented in an alternate sectionGoals may be documented in an alternate sectionGoals may be documented in an alternate section Care Teams (unrecognized sec tion and content) Team Status: Active Member Role Status Dates Kristie Meadows DIAMOND GRINDER, DIAMOND GRINDER-C Family Provider Active Martina Conner NP-C Primary Care Provider Active Team Status: Inactive Member Role Status Dates SHILPI Sarah Primary Care Provi giovanna, Attending Provider, Referring Provider Active Team Status: Inactive Member Role Status Dates SHILPI Sarah Primary Care Provider Active Dr. Hieu Luis DO Emergency Provider Active Team Status: Active Member Role Status Dates SHILPI Sarah Primary Care Provider Active Dr. Marisel Weiner MD Emergency Provider Active Dr. Lauren Rivera MD Admit Provider, Attending Prov ider Active Team Status: Inactive Member Role Status Dates Martina Conner , DIAMOND GRINDER-C Primary Care Provider, Referring Provider Active Dr. Jarod Shabazz MD Attending Provider Active Team Status: Active Member Role Status Dates Martina Conner , DIAMOND GRINDER-C Primary Care Provider Active Dr. Marisel Weiner MD Emergency Provider Active Dr. Lauren Rivera MD Admit Provider, Other Provider Active Dr. Nicole Toibas MD Other Provider Active Dr. Yang Beck , Attending Provider Active Dr. Rojas Louis DO Referring Provider Active Team Status: Active Member Role Status Dates Martina Conner , DIAMOND GRINDER-C Primary Care Provider Active Dr. Marisel Weiner MD Emergency Provider Active Dr. Lauren Rivera MD Admit Provider, Other Provider Active Dr. Nicole Tobias MD Attending Provider, Other Pro vider Active Dr. Rojas Louis DO Referring Provider Active Team Status: Active Member Role Status Dates Martina Conner , DIAMOND GRINDER-C Primary Care Provider Active Dr. Yang Beck , Attending Provider Active Dr. Rojas Louis DO Referring Provider Active Team Status: Active Member Role Status Dates Martina Conner , DIAMOND GRINDER-C Primary Care Provider Active Dr. Marisel Weiner MD Emergency Provider Active Dr. Lauren Rivera MD Admit Provider, Attending Provider, Other Provider Active Dr. Nicole Tobias MD Other Provider Active Team Status: Active Member Role Status Dates Martina Conner , DIAMOND GRINDER-C Primary Care Provider Active Dr. Marisel Weiner MD Emergency Provider Active Dr. Lauren Rivera MD Admit Provider, Other Provider Active Dr. Nicole Tobias MD Attending Provider, Other Pro vider Active Team Status: Active Member Role Status Dates Martian Conner , DIAMOND GRINDER-C Primary Care Provider Active Dr. Marisel Weiner MD Emergency Provider Active Dr. Lauren Rivera MD Admit Provider, Other Provider Active Dr. Nicole Tobias MD Attending Provider, Other Pro vider Active Dr. Rojas Louis DO Other Provider Active Team Status: Active Member Role Status Dates Martina Conner , DIAMOND GRINDER-C Primary Care Provider Active Dr. Marisel Weiner MD Emergency Provider Active Dr. Lauren Rivera MD Admit Provider, Other Provider Active Dr. Nicole Tobias MD Other Provider Active Dr. Rojas Louis DO Referring Provider, Other Pro vider Active Dr. Yang Beck DO Attending Provider Active Team Status: Active Member Role Status Dates Martina Conner DIAMOND GRINDER-C Primary Care Provider Active Dr. Marisel Weiner MD Emergency Provider Active Dr. Lauren Rivera MD Admit Provider, Other Provider Active Dr. Nicole Tobias MD Other Provider Active Dr. Rojas Louis DO Attending Provider, Other Pro vider Active Team Status: Active Member Role Status Dates Martina Conner , DIAMOND GRINDER-C Primary Care Provider Active Dr. Marisel Weiner MD Emergency Provider Active Dr. Lauren Rivera MD Admit Provider, Other Provider Active Dr. Nicole Tobias MD Other Provider Active Dr. Rojas Louis DO Other Provider Active Hillary KO PA-C Attending Provider Active Team Status: Inactive Member Role Status Dates Martina Conner DIAMOND GRINDER-C Primary Care Provider, Referring Provider Active Dr. Nicole Tobias MD Attending Provider Active Team Status: Inactive Member Role Status Dates Martina Conner DIAMOND GRINDER-C Primary Care Provider Active Dr. Hieu Luis DO Attending Provider, Emergency Provide r Active Team Status: Inactive Member Role Status Dates Martina Conner DIAMOND GRINDER-C Primary Care Provider Active Dr. Marisel Weiner MD Emergency Provider Active Dr. Lauren Rivera MD Admit Provider, Other Provider Active Dr. Nicole Tobias MD Other Provider Active Dr. Rojas Louis DO Attending Provider Active Team Status: Active Member Role Status Dates Kristie Meadows NP, DIAMOND GRINDER-C Family Provider Active Dr. Cayla Caicedo MD Primary Care Provider Active Team Status: Inactive Member Role Status Dates Martina Conner DIAMOND GRINDER-C Primary Care Provider Active Start: September 30, 2024 End: September 30, 2024 Martina Conner DIAMOND GRINDER-C Attending Provider Active Start: September 30, 2024 End: September 30, 2024 Martina Conner DIAMOND GRINDER-C Referring Provider Active Start: September 30, 2024 End: September 30, 2024 Team Status: Inactive Member Role Status Dates Martina Conner DIAMOND GRINDER-C Primary Care Provider Active Start: October 03, 2024 End: October 03, 2024 Martina Conner DIAMOND GRINDER-C Referring Provider Active Start: October 03, 2024 End: October 03, 2024 Mariam Yin PA, PA Attending Provider Active Start: October 03, 2024 End: October 03, 2024 Team Status: Inactive Member Role Status Dates Martina Conner NP-C Primary Care Provider Active Start: December 26, 2024 End: December 26, 2024 SHILPI Sarah Referring Provider Active Start: December 26, 2024 End: December 26, 2024 Dr. Cayla Caicedo MD Attending Provider Active Start: December 26, 2024 End: December 26, 2024 Team Status: Inactive Member Role Status Dates Dr. Cayla Caicedo MD Primary Care Provider Active Start: December 26, 2024 End: December 26, 2024 Dr. Cayla Caicedo MD Attending Provider Active Start: December 26, 2024 End: December 26, 2024 Dr. Cayla Caicedo MD Referring Provider Active Start: December 26, 2024 End: December 26, 2024 Team Status: Active Member Role Status Dates Dr. Cayla Caicedo MD Primary Care Provider Active Team Status: Inactive Member Role Status Dates Dr. Cayla Caicedo MD Primary Care Provider Active Start: March 06, 2025 End: March 06, 2025 Dr. Cayla Caicedo MD Referring Provider Active Start: March 06, 2025 End: March 06, 2025 Dr. Robert Funk MD Attending Provider Active Sta rt: March 06, 2025 End: March 06, 2025 Team Status: Active Member Role Status Dates Dr. Cayla Caicedo MD Primary Care Provider Active Start: April 07, 2025 Thomas Latif PA, PA Attending Provider Active Start: April 07, 2025 Thomas Laitf PA, PA Referring Provider Active Start: April 07, 2025 Team Status: Inactive Member Role Status Dates Dr. Cayla Caicedo MD Primary Care Provider Active Start: April 07, 2025 End: April 07, 2025 Dr. Cayla Caicedo MD Referring Provider Active Start: April 07, 2025 End: April 07, 2025 Thomas Latif PA, PA Attending Provider Active Start: April 07, 2025 End: April 07, 2025 Team Status: Inactive Member Role Status Dates Dr. Cayla Caicedo MD Primary Care Provider Active Start: April 09, 2025 End: April 09, 2025 Dr. Ihsan Garcia DO Emergency Provider Active Start: April 09, 2025 End: April 09, 2025 Team Status: Inactive Member Role Status Dates Dr. Cayla Caicedo MD Primary Care Provider Active Start: April 07, 2025 End: April 07, 2025 MAIKEL Bennett Attending Provider Active Start: April 07, 2025 End: April 07, 2025 MAIKEL Bennett Referring Provider Active Start: April 07, 2025 End: April 07, 2025 FOR RECORDS PERTAINING TO PATIENTS WHO ARE OR HAVE BEEN ENROLLED IN A CHEMICAL DEPENDENCY/SUBSTANCEABUSE PROGRAM, SOME INFORMATION MAY BE OMITTED. This clinical summary was aggregated from multiple sources. Caution should be exercised in using it in the provision of clinical care. This summary normalizes information from multiple sources, and as a consequence, information in this document may materially change the coding, format and clinical context of patient data. In addition, data may be omitted in some cases. CLINICAL DECISIONS SHOULD BE BASED ON THE PRIMARY CLINICAL RECORDS. [facility] [employer] provides no warranty or guarantee of the accuracy or completeness of information in this document.
[2025-04-13 09:58] LABS: Anion Gap 11 (5-15); BUN 26 mg/dL (4-19); BUN/Creat Ratio 34.2 RATIO (10-20); Calcium,Total 8.8 mg/dL (7.6-11.0); Chloride 95 mmol/L (98-108); Creatinine, Serum 0.76 mg/dL (0.70-1.20); EST Glomerular Filtration Rate 77 (>60); Estimated Creatinine Clearance 40.48 ml/min (50-250); Glucose 92 mg/dL (70-99); Potassium 3.9 mmol/L (3.3-5.1); Sodium Level 130 mmol/L (133-145)
[2025-04-13 10:54] VITALS: BP 108/70; PULSE 65; RESP 12; TEMP 36.9; O2SAT 100
== END 2025-04-13 11:15 | disposition home or self-care (01) ==
PROVIDERS: Emergency Provider Emergency Medicine; PCP Internal Medicine; Visit Provider Emergency Medicine
DX: S32.10XA Unspecified fracture of sacrum, initial encounter for closed fracture (principal); I27.21 Secondary pulmonary arterial hypertension; M54.16 Radiculopathy, lumbar region; E86.0 Dehydration; K59.00 Constipation, unspecified; W01.0XXA Fall on same level from slipping, tripping and stumbling without subsequent striking against object, initial encounter; Y92.019 Unspecified place in single-family (private) house as the place of occurrence of the external cause; I10 Essential (primary) hypertension; M81.0 Age-related osteoporosis without current pathological fracture; E03.9 Hypothyroidism, unspecified; Z86.73 Personal history of transient ischemic attack (TIA), and cerebral infarction without residual deficits; Z79.52 Long term (current) use of systemic steroids; Z79.82 Long term (current) use of aspirin; Z79.890 Hormone replacement therapy; Z79.899 Other long term (current) drug therapy
CPT/HCPCS: 72131; 72192; 80048; 85025; 96361; 96374; 96375; 99283; A4216; J2405

== ENCOUNTER → 2025-04-17 | Outpatient (CLI) | payer MEDICARE, BC, SELFPAY | END | disposition home or self-care (01) | LOC: MTRAD 09:12 | PROVIDERS: PCP Internal Medicine; Referring Provider Nurse Practitioner Family; Visit Provider Nurse Practitioner Family | DX: M25.572 Pain in left ankle and joints of left foot (principal); M79.672 Pain in left foot; W19.XXXA Unspecified fall, initial encounter | CPT/HCPCS: 73610; 73630 ==

== ENCOUNTER → 2025-04-28 | Outpatient (CLI) | payer MEDICARE, BC, SELFPAY ==
--- NOTE | 2025-04-28 08:00 | BI_ITS ---
EXAM: SCRN MAMM (CAD)W/LOAN BILAT DATE: 04/28/2025 CLINICAL HISTORY: F, Age 84 y/o , SCREENING No family history. TECHNIQUE: SCRN MAMM (CAD)W/LOAN BILAT COMPARISON: Prior exam(s) dated April 23, 2024.. FINDINGS: TISSUE DENSITY: The breasts are extremely dense, which lowers the sensitivity of mammography. Bilateral Breast Mammographic Findings: No significant masses, calcifications or other abnormalities are identified. Stable bilateral vascular and secretory calcifications. No suspicious masses, areas of developing architectural distortion, or suspicious calcifications. There has been no significant interval change. BI/SCRN MAMM (CAD)W/LOAN BILAT IMPRESSION: Stable examination. OVERALL FINAL ASSESSMENT BI-RADS 2: BENIGN RECOMMENDATION: Routine annual follow-up in 1 Year A letter with findings and recommendations will be mailed to the patient. Reading Location: [place] [id number]
== END | disposition home or self-care (01) ==
LOC: OPBD 07:58 → OPBI 08:00
PROVIDERS: PCP Internal Medicine; Referring Provider Internal Medicine; Visit Provider Internal Medicine
DX: Z12.31 Encounter for screening mammogram for malignant neoplasm of breast (principal)
CPT/HCPCS: 77063; 77067

== ENCOUNTER 2025-05-22 08:00 | Outpatient (RCR) | payer MEDICARE, BC, SELFPAY ==
--- NOTE | 2025-04-30 09:27 | HP.PTEVAL ---
Patient's Visit Information Visit Information Visit Information: CHINMAY COTA is a 84 year old F referred to Physical Therapy by SHILPI Porter with a diagnosis of falls and sciatica, sacral fracture. Date of Evaluation: 04/25/25 Physical Therapist: Mega Carrera DPT Visit Plan Frequency: 2x /Week Duration: 4 Weeks Plan: Neutral spine core stability/strength, hip strengthening gait progression to LRD. Subjective Subjective: Pt. is here today for her initial evaluation with diagnosis falls and sciatica, sacral fracture. Pt. reports that her back pain is minimal now. Pt. is having more trouble with her balance and LE strength. Pt. is walking with SPC, but had been using FWW. She does live by her self and would like to get back to no AD with walking in her home. Pt. reports being a little bit fearful with walking right now. Daughter reports she always has a bit of shuffling with gait. Pt. reports her pain is much better than it was a few weeks ago. Pain lumbar spine: Pain Intensity (Out of 10): 1 Pain Intensity Range: 0 and 4 Objective Objective: POSTURE: slight flexed posture. narrow AUGUSTO in stance. PALPATION: no pain with palpation of BLEs. NEURO: normal throughotut. ROM: Pt. has has min loss with flexion no increase, exte min loss mild increase, BS min loss NE, rotaiton min loss NE. Pt. has full motion of B hips without issues. MMT: 4/5 throughout BLEs, core strength poor. GAIT: Pt. ambulates with FWW with DULCE MARIA with flexed posture. PT. is able to ambulate with SPC with decreased step length and more fearful pattern. Without AD, patient has marked shuffling and flexed posture. No increase in symptoms noted. Pt. much safer with AD currently. Ok to start working with SPC in home. STAIRS: Pt. is able to complete with reciprocal pattern with 2 HR with out issues. Balance/Special Test Scores Oswestry Low Back Score: 10 TUG Test Time Seconds: 19.9 30 Second Chair Rise Test Seconds: 15 Goals Goal 1:: LTG: Pt to be I with HEP. Goal Time Frame: 4-6 Weeks Goal 2:: STG: Pt. to ambulate with SPC DULCE MARIA. Goal Time Frame: 2-4 Weeks Goal 3:: LTG: PT. to have increaesd BLE and core strength to 5/5 and fair. Goal Time Frame: 4-6 Weeks Goal 4:: LTG: Pt. to ambulate without AD with normal gait pattern. Goal Time Frame: 4-6 Weeks Goal 5:: LTG: Pt. to have no pain with all ADLs. Goal Time Frame: 4-6 Weeks Rehabilitation Potential Physical Therapy Diagnosis: Pt. has signs and symptoms consistent with falls and sciatica, sacral fracture. Pt. has marked BLE weakness and difficulty with walking. She would benefit from PT to address the above limitations. Rehabilitation Potential: Excellent Anticipated Interventions Patient/Client Instruction: Educate patient on: Condition, Plan of Care, Risk Factors and Benefits of Fitness Program For the Purpose of:: To improve decision making, To facilitate caregiver knowledge, To improve self management, To prevent re-injury and To improve ability to perform tasks related to life management Therapeutic Exercise to Include: Strength training, Power training, Endurance training, Postural training, Flexibilty training, Gait and locomotor training, Passive ROM, Active ROM and Dynamic Lumbar Stabilization For the Purpose of:: To decrease pain, To decrease swelling/inflammation, To increase ROM, To improve nutrient delivery to tissue, To increase oxygenation perfusion, To improve muscle performance and motor function, To improve ability to perform ADL's and To increase tolerance to activity/condition/position Text: Thank you for the opportunity to evaluate your patient. For Medicare and Medicare HMO plans, please review the plan of care and approve it. It will need to be FAXED BACK to us at [phone] for Medicare purposes. For Medicare only, by signing this I certify the plan of care. Please let me know if there are questions or concerns regarding this plan of care. Physician Signature: Date:
--- NOTE | 2025-05-22 12:04 | HP.PTDCSUM ---
Discharge Summary D/C summary: It has been my pleasure to treat CHINMAY COTA referred by SHILPI Porter, with the diagnosis of falls and sciatica, sacral fracture for a total of 9 visit(s). Discharge Date: 05/22/25 Please see the following information for a summary of their discharge status. Subjective Subjective: Pt. reports overall doing much better. She arrives without use of AD. Pt. is back to living I without issues. Pt. is driving without problems. Pt. reports being 90% better overall. Pain lumbar spine: Pain Intensity (Out of 10): 1 Overall Improvement % Improvement: 90 Objective Objective/Function: GAIT: pt. ambulates without AD, patient does have decreased step length bilaterally. Pt. is overall gerald. STAIRS: Pt. is able to complete with 2 HR with reciprocal pattern. Pt. is overall doing great. I will DC her from PT at this point in time. Goals Goal 1:: LTG: Pt to be I with HEP. Goal Progress: Goal Met Goal 2:: STG: Pt. to ambulate with SPC DULCE MARIA. Goal Progress: Goal Met Goal 3:: LTG: PT. to have increaesd BLE and core strength to 5/5 and fair. Goal 4:: LTG: Pt. to ambulate without AD with normal gait pattern. Goal Progress: Goal Met Goal 5:: LTG: Pt. to have no pain with all ADLs. Goal Progress: Progressing Plan Plan: DC from PT at this point in time. D/C Information d/c sentence: If there are questions or concerns regarding this patient's physical therapy, please feel free to call me at [phone]. Thank you for the referral of this patient. Sincerely, Mega Lutz Sipos, DPT Balance/Gait/Functional tests Balance/Special Test Scores Oswestry Low Back Score: 6 TUG Test Time Seconds: 12.16 Tug Test: <20 sec.=mostly independent 30 Second Chair Rise Test Seconds: 17 Improvement % Improvement: 90
== END 2025-05-22 19:00 | disposition home or self-care (01) ==
LOC: PT 08:00
PROVIDERS: PCP Internal Medicine; Referring Provider Nurse Practitioner Family; Visit Provider Nurse Practitioner Family
DX: S32.10XD Unspecified fracture of sacrum, subsequent encounter for fracture with routine healing (principal); M54.16 Radiculopathy, lumbar region
CPT/HCPCS: 97110; 97161; 97530

== ENCOUNTER → 2025-06-05 | Outpatient (CLI) | payer MEDICARE, BC, SELFPAY ==
[2025-06-05 15:14] LABS: Hematocrit 34.3 % (37-47); Hemoglobin 11.8 g/dL (12.0-15.0); Immature Granulocytes Count 0.020 X10^3/uL (0.0-0.0); Mean Corp Hgb Conc 34.4 g/dL (32-36); Mean Corpuscular Volume 94.5 fL (81-99); Mean Platelet Vol. 10.8 fl (6.2-12.0); NRBC Flagged by Analyzer 0 % (0-5); Platelet Count 265 K/mm3 (150-450); RBC Distribution Width CV 13.3 % (11.6-14.6); RBC Distribution Width SD 46.5 fl (35.1-43.9); Red Blood Count 3.63 M/mm3 (4.2-5.4); White Blood Count 6.8 K/mm3 (4.4-11.0)
[2025-06-05 15:53] LABS: AST(SGOT) 30 U/L (<=31); Alanine Aminotransfer ALT/SGPT 18 U/L (<=34); Albumin, Serum 3.8 g/dL (3.4-4.8); Alkaline Phosphatase 101 U/L (35-104); Anion Gap 12 (5-15); BUN 27 mg/dL (4-19); BUN/Creat Ratio 44.9 RATIO (10-20); Calcium,Total 9.3 mg/dL (7.6-11.0); Carbon Dioxide 23.8 mmol/L (21.0-32.0); Chloride 100 mmol/L (98-108); Globulin 2.1 g/dL (2.2-4.2); Glucose 80 mg/dL (70-99); Potassium 4.5 mmol/L (3.3-5.1); Pro- Brain NATRIURETIC PEPTIDE 247 pg/mL (<=1800)
== END | disposition home or self-care (01) ==
LOC: MTLAB 11:26
PROVIDERS: PCP Internal Medicine; Referring Provider Nurse Practitioner Family; Visit Provider Nurse Practitioner Family
DX: I05.9 Rheumatic mitral valve disease, unspecified (principal); I27.21 Secondary pulmonary arterial hypertension; R60.9 Edema, unspecified
CPT/HCPCS: 36415; 80053; 83880; 85025

== ENCOUNTER → 2025-06-12 | Outpatient (CLI) | payer MEDICARE, BC, SELFPAY ==
--- NOTE | 2025-06-12 10:19 | VDLE_ITS ---
Reason For Study Reason For Study: BLE SWelling RIGHT LEFT GSV is normal. GSV is normal. CFV is compressible, spontaneous, phasic, competent CFV is compressible, spontaneous, phasic, competent, and demonstrates normal augmentation. and demonstrates normal augmentation. FV is compressible, spontaneous, phasic, competent FV is compressible, spontaneous, phasic, competent and demonstrates normal augmentation. and demonstrates normal augmentation. POP V is compressible, spontaneous, phasic, competent POP V is compressible, spontaneous, phasic, competent and demonstrates normal augmentation. and demonstrates normal augmentation. T/P Trunk is compressible. T/P Trunk is compressible. PTV is compressible. PTV is compressible. RT PerV is compressible. LT PerV is compressible. Procedure This is a venous duplex using B-mode, color flow and spectral Doppler. Exam performed in department. The exam was diagnostic. A preliminary report was called and/or faxed to [facility]. VL/Venous Duplex US - Larry Extrem Interpretation Summary Deep veins of the bilateral lower extremities are patent and compressible segme ntally. There is no evidence of bilateral lower extremity deep vein thrombosis. The bilateral great saphenous veins appea r patent and compressible segmentally. Ordering Physician: Mariam Yin Referring Physician: Cayla Caicedo Performed By: Bello Hyde RVT
== END | disposition home or self-care (01) ==
LOC: CVS 10:18
PROVIDERS: PCP Internal Medicine; Referring Provider Physician Assistant Medical; Visit Provider Physician Assistant Medical
DX: M79.89 Other specified soft tissue disorders (principal); M79.606 Pain in leg, unspecified
CPT/HCPCS: 93970

== ENCOUNTER → 2025-06-30 | Outpatient (CLI) | payer MEDICARE, BC, SELFPAY ==
[2025-06-30 12:12] LABS: Hematocrit 33.2 % (37-47); Hemoglobin 11.3 g/dL (12.0-15.0); Immature Granulocytes Count 0.030 X10^3/uL (0.0-0.0); Mean Corp Hgb Conc 34.0 g/dL (32-36); Mean Corpuscular Volume 95.1 fL (81-99); Mean Platelet Vol. 10.5 fl (6.2-12.0); NRBC Flagged by Analyzer 0 % (0-5); Platelet Count 260 K/mm3 (150-450); RBC Distribution Width CV 13.2 % (11.6-14.6); RBC Distribution Width SD 45.9 fl (35.1-43.9); Red Blood Count 3.49 M/mm3 (4.2-5.4); White Blood Count 5.1 K/mm3 (4.4-11.0)
[2025-06-30 12:54] LABS: Ferritin 87 ng/mL (22-378); Iron 117 ug/dL (50-170); Iron Binding Capacity,Total 327 ug/dL (250-450); Iron Binding Capacity,Unsat 210 ug/dL (228-428)
== END | disposition home or self-care (01) ==
LOC: BIMLAB 10:24
PROVIDERS: PCP Internal Medicine; Referring Provider Internal Medicine; Visit Provider Internal Medicine
DX: D64.9 Anemia, unspecified (principal)
CPT/HCPCS: 36415; 82728; 83540; 83550; 85025

== ENCOUNTER → 2025-07-07 | Outpatient (CLI) | payer MEDICARE, BC, SELFPAY ==
--- NOTE | 2025-07-07 07:46 | ECHOD_ITS ---
Reason For Study Reason For Study: Edema Procedure This was a 2D Doppler, Color Flow transthoracic echocardiogram. Exam performed in department. Left Ventricle Normal LV size. Left ventricular systolic function is normal. The left ventricular ejection fraction is 65 %. Stage 1 diastolic dysfunction. No regional wall motion abnormalities noted. Right Ventricle Normal RV size. Normal systolic function. Atria Normal left atrium. Normal right atrium. Mitral Valve There is moderate mitral annular calcification. Mild-Moderate (1-2+) eccentric mitral valve insufficiency. Tricuspid Valve Normal tricuspid valve. Mild (1+) tricuspid valve insufficiency. Pulmonary artery systolic pressure is 30 mmHg. Aortic Valve Trisinus/trileaflet aortic valve. Mild focal aortic valve calcification. Mild (1+) aortic valve insufficiency. Pulmonic Valve Normal pulmonic valve. Great Vessels Normal aortic root. The pulmonary artery is normal size. Inferior vena cava collapse with respiration. Pericardium/Pleural No pericardial effusion. MMode/2D Measurements & Calculations LVIDd: 4.2 cm IVSd: 1.2 cm Ao root diam: 3.8 cm LVIDs: 2.8 cm LVPWd: 0.89 cm RVDd: 3.7 cm FS: 33.8 % LAV(MOD-bp): 48.7 ml LVAd ap4: 17.9 cm2 SV(MOD-sp4): 29.0 ml LAV(MOD-bp) Indexed: 32.0 ml/m2 LVLd ap4: 6.4 cm SI(MOD-sp4): 19.0 ml/m2 LAV(MOD-sp2): 44.5 ml EDV(MOD-sp4): 46.2 ml LAV(MOD-sp4): 50.3 ml EDV(sp4-el): 42.6 ml LVAs ap4: 9.9 cm2 LVLs ap4: 5.5 cm ESV(MOD-sp4): 17.2 ml ESV(sp4-el): 15.2 ml EF(MOD-sp4): 62.8 % EF(sp4-el): 64.4 % SV(sp4-el): 27.4 ml LA A4 area: 18.0 cm2 LA dimension(2D): 2.5 cm RA A4 area: 12.2 cm2 TAPSE: 2.5 cm Time Measurements MV dec time: 0.25 sec Doppler Measurements & Calculations MV E max francisco: 99.8 cm/sec Lat Peak E' Francisco: 5.7 cm/sec Med Peak E' Francisco: 7.6 cm/sec MV A max francisco: 121.5 cm/sec E/E' lat: 17.6 E/E' med: 13.1 MV E/A: 0.82 MV V2 max: 137.8 cm/sec MV P1/2t max francisco: 123.8 cm/sec Ao V2 max: 146.8 cm/sec MV max P.6 mmHg MV P1/2t: 89.1 msec Ao max P.6 mmHg MV V2 mean: 80.5 cm/sec Ao V2 mean: 105.4 cm/sec MV mean P.0 mmHg MV dec slope: 407.0 cm/sec2 Ao mean P.1 mmHg MV V2 VTI: 35.7 cm MVA(P1/2t): 2.5 cm2 Ao V2 VTI: 34.7 cm AV (velocity ratio): 0.77 AI max francisco: 437.1 cm/sec LV V1 max: 125.0 cm/sec MR max francisco: 564.3 cm/sec AI max P.4 mmHg LV V1 max P.3 mmHg MR max P.4 mmHg LV V1 mean P.4 mmHg AI dec slope: 407.9 cm/sec2 LV V1 mean: 87.0 cm/sec AI P1/2t: 313.8 msec LV V1 VTI: 26.9 cm PA V2 max: 108.1 cm/sec TR max francisco: 253.1 cm/sec TR max P.7 mmHg ECHO/Echo Complete Interpretation Summary Normal LV size. Left ventricular systolic function is normal. The left ventricular ejection fraction is 65 %. Stage 1 diastolic dysfunction. Pulmonary artery systolic pressure is 30 mmHg. There is moderate mitral annular calcification. Mild-Moderate (1-2+) eccentric mitral valve insufficiency. Ordering Physician: Keyla Jaimes Referring Physician: Keyla Jaimes Performed By: Sonido Parry RCS
== END | disposition home or self-care (01) ==
LOC: CVS 07:45
PROVIDERS: PCP Internal Medicine; Referring Provider Nurse Practitioner Family; Visit Provider Nurse Practitioner Family
DX: I27.21 Secondary pulmonary arterial hypertension (principal); R06.02 Shortness of breath
CPT/HCPCS: 93306

== ENCOUNTER → 2025-09-30 | Outpatient (CLI) | payer MEDICARE, BC, SELFPAY | END | disposition home or self-care (01) | PROVIDERS: PCP Internal Medicine; Referring Provider Internal Medicine; Visit Provider Internal Medicine | DX: G47.10 Hypersomnia, unspecified (principal) | CPT/HCPCS: 95806 ==